=== PATIENT | female | born 1970 | race Caucasian/White ===

== ENCOUNTER 2017-06-06 12:47 | Emergency (ER) | payer OTHER ==
[~2017-06-06] VITALS: Ht 167.6 cm; Wt 80.7 kg
[~2017-06-06 12:47] MED LIST: ALPR-385 PO; AMLO10TA2 PO; LISI20TA3 PO; NIFE1TAB53 PO; PANT40TA PO; TNR25 PO
[2017-06-06 12:52] VITALS: TEMP 36.4; Ht 167.6 cm; Wt 80.7 kg
[2017-06-06] MEDS ORDERED: SODIUM CHLORIDE 0.9% 500ML 500 ML IV STA (13:40)
[2017-06-06] MEDS ORDERED: ONDANSETRON INJ 2 MG/ML 2 ML VIAL IV PRN (13:45)
--- NOTE | 2017-06-06 13:48 | EMERGENCY ROOM VISIT NOTE ---
History First contact with patient: 13:28 Chief Complaint: VOMITING Stated Complaint: SICK TO STOMACH, CAN'T STOP VOMITING History of Present Illness The patient is a 47 year old female who presents to the Emergency Room with complaints of abdominal pain, nausea and vomiting that returned 2 days ago. The patient was admitted to [facility] in [place] 2 weeks ago for the same complaint. She did feel better prior to discharge. The patient says that she struggles with intermittent nausea, vomiting and abdominal pain. During her hospital stay 2 weeks ago, an endoscopy was performed. A polyp was removed. She was not told of any other abnormalities. Her last bowel movement was this morning and reported normal. Denies any fever or chills. Review of Systems 10 system review performed and negative unless noted in HPI or below Past Medical/Surgical History Medical Problems: (1) Anxiety (2) Hypertension (3) Nausea & vomiting Surgical Problems: (1) H/O section (2) History of appendectomy Family History FH: HTN (hypertension) Social History Smoking Status: Current Every Day Smoker Alcohol Use: none Drug Use: none Marital Status: single Housing Status: lives with family, lives with roommate Occupation Status: disabled Current/Historical Medications Scheduled Alprazolam (Xanax), 1 MG PO BID Atenolol (Tenormin), 25 MG PO DAILY Lisinopril (Prinivil), 20 MG PO DAILY Nifedipine (Nifedipine Er), 1 TAB PO DAILY Pantoprazole Sodium (Protonix), 40 MG PO DAILY Sennosides-Docusate Sodium (Stool Softener), 1 TAB PO DAILY Sucralfate (Carafate), 10 ML PO ACHS Scheduled PRN Oxycodone Ir (Roxicodone Ir), 1-2 TAB PO Q4H PRN for Pain Promethazine Hcl (Phenergan), 25 MG PO Q6H PRN for Nausea Physical Exam Vital Signs Date Time Temp Pulse Resp B/P (MAP) Pulse Ox O2 Delivery O2 Flow Rate FiO2 06/06/17 18:33 73 16 172/116 97 Room Air 06/06/17 17:51 76 14 151/104 97 Room Air 06/06/17 17:04 80 15 182/108 98 Room Air 06/06/17 16:25 70 204/134 06/06/17 16:11 55 20 212/122 06/06/17 16:07 59 06/06/17 16:00 80 207/119 06/06/17 14:45 60 16 215/155 98 Room Air 06/06/17 12:52 36.4 87 20 169/130 98 Room Air Physical Exam GENERAL: 47-year-old female, in mild discomfort,,. SKIN: The skin was without rashes, erythema, edema, or bruising. There is no tenting of the skin. Capillary reflex less than 2 seconds. HEAD: Normocephalic atraumatic. MOUTH: Mucous membranes moist. NECK: No JVD. HEART: Regular rate and rhythm without murmurs gallops or rubs. LUNGS: Clear to auscultation bilaterally without wheezes, rales or rhonchi. No accessory muscle use. ABDOMEN: Positive bowel sounds x 4.Soft, tenderness to palpation in the epigastrium., without organomegaly. No guarding or rebound tenderness. MUSCULOSKELETAL: No muscle atrophy, erythema, or edema noted. Strength 5/5 throughout. NEURO: Patient was alert and oriented to person place and time. Normal sensation to touch. No focal neurological deficits. Medical Decision & Procedures ER Provider Diagnostic Interpretation: CT abdomen and pelvis IMPRESSION: 1. No bowel wall thickening or obstruction. 2. A few colonic diverticula. 3. No hydronephrosis. Electronically signed by: Venkat Ramires M.D. 06/06/2017 6:38 PM Laboratory Results 06/06/17 13:55 Red Blood Count 5.29, Mean Corpuscular Volume 84.7, Mean Corpuscular Hemoglobin 30.6, Mean Corpuscular Hemoglobin Concent 36.2, Mean Platelet Volume 10.8, Neutrophils (%) (Auto) 70.1, Lymphocytes (%) (Auto) 22.9, Monocytes (%) (Auto) 5.8, Eosinophils (%) (Auto) 0.6, Basophils (%) (Auto) 0.4, Neutrophils # (Auto) 8.77, Lymphocytes # (Auto) 2.87, Monocytes # (Auto) 0.73, Eosinophils # (Auto) 0.08, Basophils # (Auto) 0.05 06/06/17 13:55 Test 06/06/17 13:55 06/06/17 15:35 White Blood Count 12.52 K/uL (4.8-10.8) Red Blood Count 5.29 M/uL (4.2-5.4) Hemoglobin 16.2 g/dL (12.0-16.0) Hematocrit 44.8 % (37-47) Mean Corpuscular Volume 84.7 fL (80-100) Mean Corpuscular Hemoglobin 30.6 pg (25-34) Mean Corpuscular Hemoglobin Concent 36.2 g/dl (32-36) Platelet Count 313 K/uL (130-400) Mean Platelet Volume 10.8 fL (7.4-10.4) Neutrophils (%) (Auto) 70.1 % Lymphocytes (%) (Auto) 22.9 % Monocytes (%) (Auto) 5.8 % Eosinophils (%) (Auto) 0.6 % Basophils (%) (Auto) 0.4 % Neutrophils # (Auto) 8.77 K/uL (1.4-6.5) Lymphocytes # (Auto) 2.87 K/uL (1.2-3.4) Monocytes # (Auto) 0.73 K/uL (0.11-0.59) Eosinophils # (Auto) 0.08 K/uL (0-0.5) Basophils # (Auto) 0.05 K/uL (0-0.2) RDW Standard Deviation 42.8 fL (36.4-46.3) RDW Coefficient of Variation 14.0 % (11.5-14.5) Immature Granulocyte % (Auto) 0.2 % Immature Granulocyte # (Auto) 0.02 K/uL (0.00-0.02) Anion Gap 11.0 mmol/L (3-11) Est Creatinine Clear Calc Drug Dose 82.8 ml/min Estimated GFR () 88.3 Estimated GFR (Non- 76.1 BUN/Creatinine Ratio 12.3 (10-20) Calcium Level 9.8 mg/dl (8.5-10.1) Total Bilirubin 1.0 mg/dl (0.2-1) Aspartate Amino Transf (AST/SGOT) 9 U/L (15-37) Alanine Aminotransferase (ALT/SGPT) 24 U/L (12-78) Alkaline Phosphatase 52 U/L (45-117) Total Protein 8.7 gm/dl (6.4-8.2) Albumin 4.4 gm/dl (3.4-5.0) Globulin 4.3 gm/dl (2.5-4.0) Albumin/Globulin Ratio 1.0 (0.9-2) Lipase 113 U/L (73-393) Urine Color ORANGE Urine Appearance CLOUDY (CLEAR) Urine pH 6.0 (4.5-7.5) Urine Specific Elkins 1.027 (1.000-1.030) Urine Protein 2+ (NEG) Urine Glucose (UA) NEG (NEG) Urine Ketones 2+ (NEG) Urine Occult Blood NEG (NEG) Urine Nitrite NEG (NEG) Urine Bilirubin NEG (NEG) Urine Urobilinogen NEG (NEG) Urine Leukocyte Esterase TRACE (NEG) Urine WBC (Auto) 5-10 /hpf (0-5) Urine RBC (Auto) 0-4 /hpf (0-4) Urine Hyaline Casts (Auto) 1-5 /lpf (0-5) Urine Epithelial Cells (Auto) >30 /lpf (0-5) Urine Bacteria (Auto) 1+ (NEG) Urine Renal Epithelial Cells /lpf (0-5) Urine Pathogenic Casts 0-3 GRANULAR CASTS /lpf (0) Urine Mucus PRESENT (NONE PRSENT) Urine Opiates Screen POS (NEG) Urine Methadone, Qualitative NEG (NEG) Urine Barbiturates NEG (NEG) Urine Phencyclidine (PCP) Level NEG (NEG) Ur Amphetamine/Methamphetamine NEG (NEG) MDMA (Ecstasy) Screen NEG (NEG) Urine Benzodiazepines Screen NEG (NEG) Urine Cocaine Metabolite NEG (NEG) Urine Marijuana (THC) POS (NEG) Medications Administered Medications (Trade) Dose Ordered Sig/Maddison Route Start Time Stop Time Status Last Admin Dose Admin Hydromorphone HCl (Dilaudid Inj) 1 mg Q2H PRN IV 06/06/17 13:45 06/20/17 13:44 06/06/17 18:32 1 MG Ondansetron HCl (Zofran Inj) 4 mg Q2H PRN IV 06/06/17 13:45 07/06/17 13:44 06/06/17 14:02 4 MG Sodium Chloride 500 ml @ 999 mls/hr Q31M STAT IV 06/06/17 13:40 06/06/17 14:10 DC 06/06/17 13:40 999 MLS/HR Promethazine HCl (Phenergan Inj) 25 mg NOW STAT IM 06/06/17 15:06 06/06/17 15:08 DC 06/06/17 15:06 25 MG Hydromorphone HCl (Dilaudid Inj) 1 mg ONE ONCE IM 06/06/17 15:15 06/06/17 15:16 DC 06/06/17 15:29 1 MG Hydralazine HCl (HydrALAZINE INJ) 10 mg NOW STAT IV. 06/06/17 16:02 06/06/17 16:03 DC 06/06/17 16:10 10 MG Labetalol HCl (Normodyne IV) 10 mg NOW STAT IV 06/06/17 16:56 06/06/17 16:57 DC 06/06/17 17:06 10 MG ECG Indication: other Rate (beats per minute): 51 Rhythm: sinus bradycardia ED Course Patient was seen and examined Vital signs including blood pressure were reviewed medications list was verified with patient Labs were obtained, and a saline lock was established The patient was treated with Dilaudid and Zofran for her symptoms. She was hydrated with 500 mL saline bolus The patient was reevaluated and still complaining of pain. She was given an additional dose of medications. Her blood pressure was also noted to be significantly elevated. She was given hydralazine 10 mg IV. The patient was again reevaluated. Her blood pressure remained elevated. She was given labetalol 10 mg IV. Imaging was performed and reviewed. The patient was reassessed by myself and my supervising physician. Her blood pressure had improved. We discussed the results of her workup. She voiced understanding. She was comfortable being discharged home. I reviewed discharge instructions the patient. They voiced understanding and had no further questions. Medical Decision DIFFERENTIAL DIAGNOSIS: Gastroenteritis, Hepatitis, cholecystitis, cholangitis, biliary colic, pancreatitis, appendicitis, inguinal hernia, nephrolithiasis, inflammatory bowel disease, mesenteric adenitis, peptic ulcer disease, GERD, gastritis, pancreatitis,, bowel obstruction, splenic infarct, diverticulitis, mesenteric ischemia, metabolic, peritonitis, among others. This patient is a 47-year-old female presents to the emergency department with complaints of abdominal pain, nausea and vomiting. The symptoms are not new. She had an extensive workup 2 weeks ago at [place] including an EGD. On exam, the patient was subjectively tender in the epigastrium. She was noted to be significantly hypertensive.. Her blood pressure was treated with hydralazine and labetalol with improvement. A CAT scan did not show any significant acute abnormalities. I believe she is stable to be discharged home. She is tolerating liquids. She was given a follow-up appointment with her GI doctor on June 11. She was also urged to follow up with her primary care physician within the next 2-3 days for a recheck of her abdomen and also her blood pressure. The patient was also urged to take her blood pressure medications as prescribed. The patient was sent home with a short course of narcotics and antiemetics. I was fairly concerned of narcotic abuse and drug-seeking behavior. This should be noted for future visits. It is also of interest that the patient tested positive for marijuana. She could have hyperemesis secondary to this. She was advised against this in the future. This chart was completed in part utilizing [employer] Speech Voice Recognition software. Attempts were made to minimize the grammatical errors, random word insertions, pronoun errors and incomplete sentences. Any formal questions or concerns about the content, text or information contained within the body of this dictation should be directly addressed to the provider for clarification. Blood Pressure Screening Patient's blood pressure: Elevated blood pressure Blood pressure disposition: Referred to PCP Impression Primary Impression: Vomiting Departure Information Dispostion Home / Self-Care Condition GOOD Prescriptions Promethazine Hcl (Phenergan) 25 Mg Tab 25 MG PO Q6H Y for Nausea, #20 TAB Prov: Marion Lay PA-C 06/06/17 Oxycodone Ir (Roxicodone Ir) 5 Mg Tab 1-2 TAB PO Q4H Y for Pain, #9 TAB For Initial Treatment Prov: Marion Lay PA-C 06/06/17 Referrals No Doctor, Assigned (PCP) Mir Marroquin M.D. Patient Instructions My [facility] Additional Instructions You were evaluated in the emergency department for abdominal pain and vomiting. A CAT scan did not show any significant abnormalities. Your blood pressure was significantly elevated. Please continue blood pressure medication as prescribed. Do not miss a dose. Please follow-up with your primary care physician within the next 24-48 hours for a recheck. Please follow-up with your GI doctor as scheduled on June 11 at 1 PM. Return to the emergency department if you have any of the following symptoms: -Fever of 103F or greater -Persistent vomiting - Persistent diarrhea -Lethargy -Chest pain -Shortness of breath -Worsening pain
[2017-06-06] MEDS ORDERED: SENNTAB23 PO (13:49)
[2017-06-06] MEDS ORDERED: CRFL PO (13:49)
[2017-06-06] MEDS ORDERED: ATEN25TA PO (13:49)
[2017-06-06] MEDS: HYDROmorphone INJ 1 MG/ML SYR IV PRN ×2 (14:03→18:32)
[2017-06-06 14:09] LABS: BASO % 0.4 %; BASO ABS # 0.05 K/uL (0-0.2); COMPLETE YES; EOS % 0.6 %; HEMATOCRIT 44.8 % (37-47); IG% 0.2 %; LYMPH % 22.9 %; LYMPH ABS # 2.87 K/uL (1.2-3.4); MEAN CELL VOLUME 84.7 fL (80-100); MEAN CORPUSCULAR HEMOGLOBIN 30.6 pg (25-34); MEAN CORPUSCULAR HGB CONC 36.2 g/dl (32-36); MEAN PLATELET VOLUME 10.8 fL (7.4-10.4); MONO % 5.8 %; NEUT % 70.1 %; PLATELET COUNT 313 K/uL (130-400); RED BLOOD COUNT 5.29 M/uL (4.2-5.4); WHITE BLOOD COUNT 12.52 K/uL (4.8-10.8)
[2017-06-06 14:29] LABS: BUN/CREATININE RATIO 12.3 (10-20); CALCIUM 9.8 mg/dl (8.5-10.1); CREATININE 0.9 mg/dl (0.60-1.20); POTASSIUM 3.4 mmol/L (3.5-5.1)
[2017-06-06] MEDS ORDERED: PROMETHAZINE HCL INJ 25 MG/ML 1 ML VIAL IM STA (15:06)
[2017-06-06] MEDS ORDERED: HYDROmorphone INJ 1 MG/ML SYR IM ONE (15:15)
[2017-06-06] MEDS ORDERED: OPTIRAY 320 IV PRN (15:30)
[2017-06-06] MEDS ORDERED: HydrALAZINE HCL 20 MG/ML VIAL IM STA (15:47)
[2017-06-06 16:01] LABS: URINE APPEARANCE CLOUDY (CLEAR); URINE COLOR ORANGE; URINE EPITHELIAL CELL AUTO >30 /lpf (0-5); URINE NITRITE NEG (NEG); URINE SPECIFIC GRAVITY 1.027 (1.000-1.030); UROBILINOGEN NEG (NEG)
[2017-06-06] MEDS ORDERED: HydrALAZINE HCL 20 MG/ML VIAL IV. STA (16:02)
[2017-06-06 16:11] LABS: MANUAL MICROSCOPIC REQUIRED? NO; REVIEW REQ? YES
[2017-06-06 16:12] LABS: BENZODIAZEPINE, URINE NEG (NEG); COCAINE,URINE NEG (NEG); PHENCYCLIDINE, URINE NEG (NEG)
[2017-06-06 16:14] LABS: URINE BILIRUBIN NEG (NEG)
[2017-06-06] MEDS ORDERED: LABETALOL HCL IV 5 MG/ML 20ML IV STA (16:56)
[2017-06-06 17:04] LABS: URINE PATH CASTS 0-3 GRANULAR CASTS /lpf (0)
[2017-06-06 17:05] LABS: URINE MUCUS PRESENT (NONE PRSENT)
--- NOTE | 2017-06-06 18:39 | DIAGNOSTIC IMAGING REPORT ---
ABDOMEN AND PELVIS CT WITH IV AND ORAL CONTRAST CT DOSE: 660.03 mGy.cm HISTORY: vomiting, generalized abdominal pain TECHNIQUE: Multiaxial CT images of the abdomen and pelvis were performed following the use of intravenous and oral contrast. A dose lowering technique was utilized adhering to the principles of ALARA. COMPARISON STUDY: Abdomen and pelvis CT 07/19/2015. FINDINGS: The lung bases are clear. No pneumoperitoneum. No pneumatosis. No fractures within the visualized osseous structures. The liver, spleen, adrenal glands, pancreas, gallbladder, and kidneys are unremarkable. No retroperitoneal lymphadenopathy. The bladder, uterus, bilateral adnexa are unremarkable. No bowel wall thickening or obstruction. Questionable thickening of the sigmoid colon is likely due to underdistention. A few colonic diverticula. The appendix is not identified and likely surgically absent. IMPRESSION: 1. No bowel wall thickening or obstruction. 2. A few colonic diverticula. 3. No hydronephrosis. Electronically signed by: Venkat Ramires M.D. 06/06/2017 6:38 PM Dictated Date/Time: 06/06/2017 6:31 PM
[2017-06-06] MEDS ORDERED: PROM25TA9 PO (18:56)
[2017-06-06] MEDS ORDERED: OXYC1TAB3 PO (18:56)
[2017-06-06] MEDS ORDERED: OXYCODONE IR HOME PACK PO ONE (19:00)
[2017-06-06] MEDS ORDERED: PHENERGAN 25MG HOMEPACK PO ONE (19:00)
--- NOTE | 2017-06-06 19:18 | EMERGENCY ROOM VISIT NOTE ---
ED Visit Note First contact with patient: 13:28 I have personally evaluated this patient examined her and reviewed the pertinent labs and data. I have discussed the case with Marion Lay, the physician assistant attorney general and agree with the plan. Please refer to the PA note. This patient comes in with nausea. Her pressure was elevated however she was unable hold her blood pressure medication down today. As we treated her with IV fluids and antinausea medicine, her pressures are starting to come down . she still is elevated. she was given additional IV labetalol. CAT scan was unremarkable . she is feeling much better . I do not think is likely cardiac. She feels up to go home we will discharge her with antinausea medicine and she can hold her evening medications down. She return if: Not tolerating fluids, worsening symptoms, fever chills, any new problems or concerns.
[2017-06-06 19:31] VITALS: BP 159/107; PULSE 72; O2SAT 98
[2017-06-10 13:46] LABS: COD UR NEGATIVE NG/ML (CUTOFF=50); HYDROCOD UR NEGATIVE NG/ML (CUTOFF=50); HYDROMOR UR 1050 NG/ML (CUTOFF=50); MORPHINE UR NEGATIVE NG/ML (CUTOFF=50); NORHYDROCODONE CONF UR NEGATIVE NG/ML (CUTOFF=50); OXYMORPH UR 1860 NG/ML (CUTOFF=50)
== END 2017-06-06 19:31 | disposition home or self-care (01) ==
LOC: C.EDB 12:48 → C.EDC 19:31
DX: R11.10 Vomiting, unspecified (principal); I10 Essential (primary) hypertension; F41.9 Anxiety disorder, unspecified; F17.200 Nicotine dependence, unspecified, uncomplicated; Z79.899 Other long term (current) drug therapy; Z82.49 Family history of ischemic heart disease and other diseases of the circulatory system

== ENCOUNTER 2017-09-09 13:56 | Emergency (ER) | payer OTHER ==
[~2017-09-09] VITALS: Ht 170.2 cm; Wt 86.7 kg
[~2017-09-09 13:56] MED LIST changes: -AMLO10TA2 PO; +ATEN25TA PO; +CRFL PO; -LISI20TA3 PO; -NIFE1TAB53 PO; +OXYC1TAB3 PO; -PANT40TA PO; +PROM25TA9 PO; +SENNTAB23 PO; -TNR25 PO
[2017-09-09 14:25] VITALS: TEMP 36.5; Ht 170.2 cm; Wt 86.7 kg
[2017-09-09] MEDS ORDERED: ACETAMINOPHEN IV 100 ML IV STA (15:04)
[2017-09-09] MEDS ORDERED: PROCHLORPERAZINE 5 MG/ML 2 ML VIAL IV STA (15:04)
[2017-09-09] MEDS ORDERED: DiphenhydrAMINE HCL 50 MG/ML VIAL IV STA (15:04)
[2017-09-09] MEDS ORDERED: SODIUM CHLORIDE 0.9% 1000ML 1,000 ML IV STA ×2 (15:04→17:46)
--- NOTE | 2017-09-09 15:10 | EMERGENCY ROOM VISIT NOTE ---
History Report prepared by Bharat: Charlie Dsouza Under the Supervision of: Dr. Deepali Nuñez D.O. First contact with patient: 14:53 Chief Complaint: HEADACHE Stated Complaint: MIGRAINE,HEADACHE,TOOTH ACHE History of Present Illness The patient is a 47 year old female who presents to the Emergency Room with complaints of a persistent headache for the past week in the [place] region. The patient additionally states that she has a toothache for the past 3 days. She states that she has had dental pain for a while, and she has been getting them extracted recently. She additionally notes that she has a history of migraines , and she states that she gets 2 migraines per month, and they usually only last 1-2 days, and it has never lasted this long. She states that she is currently sensitive to light and noise which makes the headache worse, and she has had the chills and has been vomiting today. She denies any cough, congestion , and rash. The patient notes that she has been having difficulty urinating, and she has never had anything like this before. She reports that she is currently dizzy, light headed, and she has some tingling in her legs. The patient states that she has seen a neurologist before for her migraines, and she usually takes Neurontin and ibuprofen for her migraines, and she states that there are no triggers for the migraines. She additionally states that she has taken Zofran and Phenergan for her vomiting. She denies any history of diabetes, She smokes, though she has not smoked for the past couple of days. Source of History: patient Onset: a week ago Position: head Quality: other (migraine) Timing: other (persistent) Modifying Factors (Worsening): other (light and noise) Associated Symptoms: + chills, + vomiting Note: Associated symptoms: light headed and dizziness Review of Systems See HPI for pertinent positives & negatives. A total of 10 systems reviewed and were otherwise negative. Past Medical & Surgical Medical Problems: (1) Anxiety (2) Hypertension (3) Nausea & vomiting Surgical Problems: (1) H/O section (2) History of appendectomy Family History FH: HTN (hypertension) Social History Smoking Status: Current Every Day Smoker Alcohol Use: none Drug Use: none Marital Status: single Housing Status: lives with family, lives with roommate Occupation Status: disabled Current/Historical Medications Scheduled Atenolol (Tenormin), 25 MG PO DAILY Clindamycin Hcl (Cleocin), 300 MG PO TID Lisinopril (Prinivil), 20 MG PO DAILY Nifedipine (Nifedipine Er), 30 MG PO DAILY Pantoprazole Sodium (Protonix), 40 MG PO DAILY Sucralfate (Carafate), 10 ML PO ACHS Scheduled PRN Ibuprofen (Motrin), 800 MG PO Q8H PRN for Pain Promethazine Hcl (Phenergan), 25 MG PO Q6H PRN for Nausea Allergies Coded Allergies: Codeine (Verified Allergy, Unknown, GI SYMPTOMS, 04/15/16) Tramadol (Verified Allergy, Unknown, GI SYMPTOMS, 04/15/16) Morphine (Verified Adverse Reaction, Unknown, N/V, 04/15/16) Physical Exam Vital Signs Date Time Temp Pulse Resp B/P (MAP) Pulse Ox O2 Delivery O2 Flow Rate FiO2 09/09/17 19:38 82 19 164/104 98 09/09/17 17:32 56 18 173/115 95 Room Air 09/09/17 15:30 55 18 150/110 96 Room Air 09/09/17 14:25 36.5 60 20 162/113 97 Room Air Physical Exam GENERAL: alert, well appearing, well nourished, mild to moderate distress, non- toxic EYE EXAM: normal conjunctiva, PERRL and EOM's grossly intact OROPHARYNX: Extensive dental caries. Multiple prior extractions. Other dental plates and hardware noted. No obvious drainage or foul odor. No area of fluctuance. No facial edema. No exudate, no erythema, lips, buccal mucosa, and tongue normal and mucous membranes are moist NECK: supple, no nuchal rigidity, no adenopathy, non-tender LUNGS: Clear to auscultation. Normal chest wall mechanics HEART: no murmurs, S1 normal and S2 normal ABDOMEN: abdomen soft, non-tender, normo-active bowel sounds, no masses, no rebound or guarding. BACK: Back is symmetrical on inspection and there is no deformity, no midline tenderness, no CVA tenderness. SKIN: no rashes and no bruising UPPER EXTREMITIES: upper extremities are grossly normal. LOWER EXTREMITIES: No pitting edema. NEURO EXAM: Normal sensorium, cranial nerves II-XII grossly intact, normal speech, no gross weakness of arms, no gross weakness of legs. Medical Decision & Procedures ER Provider Diagnostic Interpretation: Radiology results have been interpreted by the radiologist and reviewed by me. HEAD CT NONCONTRAST CT DOSE: 828.82 mGy.cm HISTORY: atypical headache TECHNIQUE: Multiaxial CT images of the head were performed without the use of intravenous contrast. Automated exposure control was utilized for this study. A dose lowering technique was utilized adhering to the principles of ALARA. Comparison: None. Findings: The mastoid air cells are clear. Small retention cysts within the right maxillary sinus. The calvarium and skull base are intact. The ventricles and sulci are within normal limits. There is no mass, hematoma, midline shift, or acute infarct. Impression: No acute intracranial abnormality. Electronically signed by: Venkat Ramires M.D. 09/09/2017 5:18 PM Dictated Date/Time: 09/09/2017 5:[address] DOSE: HISTORY: r/o abscess/osteo TECHNIQUE: Multiaxial CT images of the maxillofacial region were performed and reformatted in the coronal plane following the use of intravenous contrast. A dose lowering technique was utilized adhering to the principles of ALARA. COMPARISON: None. FINDINGS: There is erosion of the right maxillary alveolar plate resulting in and 8 x 5 mm defect within the bone at the floor the right maxillary sinus with communication of the right axillary sinus. This may account for the soft tissue gas within the right side of the face. Small periapical lucencies within the right anterior maxillary teeth which demonstrate focal cortical breakthrough at the buccal surface. Punctate focus of gas adjacent to this location. No loculated fluid collections identified to suggest an abscess. There is mild subcutaneous fat stranding within the right maxillary region. Mild mucosal thickening within the floor the right maxillary sinus. The orbits and visualized brain parenchyma are within normal limits. Of note, there is no contrast within the mid face at the level of the oropharynx due to CT malfunction. However, contrast is seen within the upper and lower aspects of the face. Retention cyst within the right maxillary sinus. Old, healed nasal bone fractures. IMPRESSION: 1. Erosion of the right maxillary alveolar plate resulting in an 8 x 5 mm defect within the bone at the floor the right maxillary sinus. There is associated soft tissue gas within the right side of the face which is likely due to the communication from the floor the right maxillary sinus. A developing abscess or possibly necrotizing fasciitis could also have a similar appearance in the appropriate clinical setting. However, this is considered less likely. No loculated fluid collections at this time to suggest a definite abscess. 2. Small periapical lucencies within the residual right anterior maxillary teeth with associated cortical breakthrough. 3. Of note, there is no contrast identified within the oropharynx on this study due to the CT malfunction. However, the remaining portions of the face demonstrate enhancement. Electronically signed by: Venkat Ramires M.D. 09/09/2017 5:30 PM Dictated Date/Time: 09/09/2017 5:18 PM Laboratory Results 09/09/17 15:20 Red Blood Count 4.77, Mean Corpuscular Volume 88.7, Mean Corpuscular Hemoglobin 31.0, Mean Corpuscular Hemoglobin Concent 35.0, Mean Platelet Volume 10.3, Neutrophils (%) (Auto) 69.2, Lymphocytes (%) (Auto) 22.8, Monocytes (%) (Auto) 4.3, Eosinophils (%) (Auto) 3.1, Basophils (%) (Auto) 0.4, Neutrophils # (Auto) 7.93, Lymphocytes # (Auto) 2.61, Monocytes # (Auto) 0.49, Eosinophils # (Auto) 0.35, Basophils # (Auto) 0.05 09/09/17 15:20 Test 09/09/17 15:20 09/09/17 15:27 09/09/17 15:47 White Blood Count 11.45 K/uL (4.8-10.8) Red Blood Count 4.77 M/uL (4.2-5.4) Hemoglobin 14.8 g/dL (12.0-16.0) Hematocrit 42.3 % (37-47) Mean Corpuscular Volume 88.7 fL (80-100) Mean Corpuscular Hemoglobin 31.0 pg (25-34) Mean Corpuscular Hemoglobin Concent 35.0 g/dl (32-36) Platelet Count 243 K/uL (130-400) Mean Platelet Volume 10.3 fL (7.4-10.4) Neutrophils (%) (Auto) 69.2 % Lymphocytes (%) (Auto) 22.8 % Monocytes (%) (Auto) 4.3 % Eosinophils (%) (Auto) 3.1 % Basophils (%) (Auto) 0.4 % Neutrophils # (Auto) 7.93 K/uL (1.4-6.5) Lymphocytes # (Auto) 2.61 K/uL (1.2-3.4) Monocytes # (Auto) 0.49 K/uL (0.11-0.59) Eosinophils # (Auto) 0.35 K/uL (0-0.5) Basophils # (Auto) 0.05 K/uL (0-0.2) RDW Standard Deviation 46.8 fL (36.4-46.3) RDW Coefficient of Variation 14.4 % (11.5-14.5) Immature Granulocyte % (Auto) 0.2 % Immature Granulocyte # (Auto) 0.02 K/uL (0.00-0.02) Anion Gap 9.0 mmol/L (3-11) Est Creatinine Clear Calc Drug Dose 107.8 ml/min Estimated GFR () 113.7 Estimated GFR (Non- 98.1 BUN/Creatinine Ratio 15.5 (10-20) Calcium Level 9.5 mg/dl (8.5-10.1) Total Bilirubin 0.6 mg/dl (0.2-1) Aspartate Amino Transf (AST/SGOT) 16 U/L (15-37) Alanine Aminotransferase (ALT/SGPT) 30 U/L (12-78) Alkaline Phosphatase 48 U/L (45-117) Total Protein 7.9 gm/dl (6.4-8.2) Albumin 4.1 gm/dl (3.4-5.0) Globulin 3.8 gm/dl (2.5-4.0) Albumin/Globulin Ratio 1.1 (0.9-2) Bedside Lactic Acid Venous 0.75 mmol/L (0.90-1.70) Urine Color YELLOW Urine Appearance CLEAR (CLEAR) Urine pH 6.5 (4.5-7.5) Urine Specific [place] 1.014 (1.000-1.030) Urine Protein NEG (NEG) Urine Glucose (UA) NEG (NEG) Urine Ketones NEG (NEG) Urine Occult Blood NEG (NEG) Urine Nitrite NEG (NEG) Urine Bilirubin NEG (NEG) Urine Urobilinogen NEG (NEG) Urine Leukocyte Esterase SMALL (NEG) Urine WBC (Auto) 10-30 /hpf (0-5) Urine RBC (Auto) 5-10 /hpf (0-4) Urine Hyaline Casts (Auto) 1-5 /lpf (0-5) Urine Epithelial Cells (Auto) >30 /lpf (0-5) Urine Bacteria (Auto) NEG (NEG) Urine Renal Epithelial Cells 0-5 /lpf (0-5) Date/Time Source Procedure Growth Status 09/09/17 15:47 Urine , Clean Catch Urine Culture - Final Lactobacillus Species Complete Laboratory results per my review. Medications Administered Medications (Trade) Dose Ordered Sig/Maddison Route Start Time Stop Time Status Last Admin Dose Admin Sodium Chloride 1,000 ml @ 999 mls/hr Q1H1M STAT IV 09/09/17 15:04 09/09/17 16:04 DC 09/09/17 15:24 999 MLS/HR Prochlorperazine Edisylate (Compazine Inj) 10 mg NOW STAT IV 09/09/17 15:04 09/09/17 15:09 DC 09/09/17 15:24 10 MG Diphenhydramine HCl (Benadryl Inj) 25 mg NOW STAT IV 09/09/17 15:04 09/09/17 15:09 DC 09/09/17 15:24 25 MG Acetaminophen 100 ml @ 400 mls/hr NOW STAT IV 09/09/17 15:04 09/09/17 15:18 DC 09/09/17 15:24 400 MLS/HR Clindamycin Phosphate 600 mg/ Dextrose 54 ml @ 100 mls/hr NOW STAT IV 09/09/17 17:46 09/09/17 18:18 DC 09/09/17 17:46 100 MLS/HR Sodium Chloride 1,000 ml @ 999 mls/hr Q1H1M STAT IV 09/09/17 17:46 09/09/17 18:46 DC 09/09/17 18:23 999 MLS/HR Ketorolac Tromethamine (Toradol Inj) 30 mg NOW STAT IV 09/09/17 17:46 09/09/17 17:48 DC 09/09/17 18:18 30 MG Dexamethasone Sodium Phosphate (Decadron Inj) 10 mg NOW STAT IV 09/09/17 17:46 09/09/17 17:48 DC 09/09/17 18:18 10 MG Ondansetron HCl (Zofran Inj) 4 mg STK-MED ONCE .ROUTE 09/09/17 18:28 09/09/17 18:29 DC 09/09/17 18:28 4 MG Oxycodone/ Acetaminophen (Percocet 5-325mg Tab) 1 tab NOW ONCE PO 09/09/17 19:30 09/09/17 19:31 DC 09/09/17 19:31 1 TAB Oxycodone/ Acetaminophen (Percocet 5/ 325MG Home Pack) 1 homepack UD ONCE PO 09/09/17 19:30 09/09/17 19:31 DC 09/09/17 19:31 1 HOMEPACK ED Course 1453: The patient was evaluated in room B5. A complete history and physical exam was performed. 1504: Acetaminophen 100ml @ 400mls/hr IV, Benadryl 25mg IV, Compazine 10mg IV, Sodium Chloride 1000 ml @ 999 mls/hr IV 1741: I discussed the patient's case with Dr. Ike Ellison, and he states that it is less likely acute infectious etiology. He thinks that it is most likely chronic due to prior dental procedures and extractions. 1746: Decadron 10mg IV, Toradol 30mg IV, Sodium Chloride 1000 ml @ 999 mls/hr IV , Clindamycin Phosphate 600mg/Dextrose 54ml @ 100mls/hr 1805: I reevaluated the patient, and she was still in pain. I discussed the results and offered admission, though she would like to go home. 1828: Zofran 4mg IV 1913: Upon reevaluation, the patient is still having some pain, but she will get something to go home with. I discussed the findings and the treatment plan with the patient. She verbalizes agreement and understanding. She was discharged home. 1930: Oxycodone/Acetaminophen 1 Homepack PO, Oxycodone/ Acetaminophen 1 Tab PO Medical Decision Differential diagnosis: Etiologies such as migraine headache, meningitis, sinusitis, CO exposure, ICH, SAH, infection, tumor, headache, sinus thrombosis, arterial dissection, dental caries, dental abscess, osteomyelitis, Skyler's angina, as well as others were entertained. Pt well appearing here and dealing with dental pain for a long time. Recently pain worse and usual migraine this week lasting longer than usual. No fevers here, VS stable, labs reassuring, cultures sent as a precaution. Pt given IV clinda and meds for pain. Discussed observation given complaints of worsening pain and poor dentition. No evidence of acute abscess or osteo. Given hx of dental problems, no obvious swelling/drainage/fluctuance on exam, after additional discussion with radiology I feel abnormalities on CT are likely chronic. Discussed with pt keeping appt with her dentist, dominique to watch/return, she verbalized understanding. I do not suspect additional pathology from the patients headache/migraine. No evidence of intracranial abscess. Doubt cva, SAH, dissection, CVS thrombus, meningitis/encephalitis. [place] Drug Monitoring Program Search Results: patient reviewed within database Drug Monitoring Findings: She had 5 oxycodone filled on 08/29/17 Medication Reconcilliation Current Medication List: was personally reviewed by me Blood Pressure Screening Patient's blood pressure: Elevated blood pressure Blood pressure disposition: Elevated BP felt to be situational Consults Time Called: 1738 Consulting Physician: Dr. Ramires - Radiology Returned Call: [phone] I discussed the patient's case with Dr. Ike Ellison, and he states that it is less likely acute infectious etiology. He thinks that it is most likely chronic due to prior dental procedures and extractions. Impression Primary Impression: Headache Additional Impression: Pain, dental Scribe Attestation The scribe's documentation has been prepared under my direction and personally reviewed by me in its entirety. I confirm that the note above accurately reflects all work, treatment, procedures, and medical decision making performed by me. Departure Information Dispostion Home / Self-Care Prescriptions Clindamycin Hcl (CLEOCIN) 150 Mg Cap 300 MG PO TID for 7 Days, #42 CAP Prov: Deepali Nuñez, DO 09/09/17 Referrals No Doctor, Assigned (PCP) Forms HOME CARE DOCUMENTATION FORM, IMPORTANT VISIT INFORMATION Patient Instructions Decay Tooth, ED Headache Migraine, My [facility] Additional Instructions Please take the antibiotics as prescribed. These consider using probiotics while you're taking antibiotics. Please drink plenty of water. You may eat as tolerated. Please keep the appointment with her dentist as scheduled. Please consider quitting smoking. Please revisit your neurologist regarding your chronic intermittent migraines to discuss with them treatment options. If you have any worsening pain, develop drainage or discharge from an area in your mouth, develop fevers, worsening facial swelling, swelling of the neck or chin area, develop a stiff neck or have difficulty turning your neck, have difficulty opening her mouth or increased pain with swallowing, develop difficulty breathing, or you've any other new concerns, please return to the emergency room. Problem Qualifiers Primary Impression: Headache Headache type: unspecified Headache chronicity pattern: chronic headache Intractability: not intractable Qualified Codes: R51 - Headache
[2017-09-09] MEDS ORDERED: IBUP-1428 PO (15:21)
[2017-09-09] MEDS ORDERED: PROM25TA9 PO (15:21)
[2017-09-09] MEDS ORDERED: OPTIRAY 320 IV PRN (15:30)
[2017-09-09 15:33] LABS: BASO % 0.4 %; BASO ABS # 0.05 K/uL (0-0.2); EOS % 3.1 %; EOS ABS # 0.35 K/uL (0-0.5); HEMATOCRIT 42.3 % (37-47); HEMOGLOBIN 14.8 g/dL (12.0-16.0); IG# 0.02 K/uL (0.00-0.02); LYMPH % 22.8 %; LYMPH ABS # 2.61 K/uL (1.2-3.4); MEAN CELL VOLUME 88.7 fL (80-100); MEAN PLATELET VOLUME 10.3 fL (7.4-10.4); MONO % 4.3 %; MONO ABS # 0.49 K/uL (0.11-0.59); NEUT % 69.2 %; NEUT ABS # 7.93 K/uL (1.4-6.5); PLATELET COUNT 243 K/uL (130-400); RED CELL DISTRIBUTION WIDTH CV 14.4 % (11.5-14.5); RED CELL DISTRIBUTION WIDTH SD 46.8 fL (36.4-46.3); WHITE BLOOD COUNT 11.45 K/uL (4.8-10.8)
[2017-09-09 15:48] LABS: ALBUMIN 4.1 gm/dl (3.4-5.0); CALCIUM 9.5 mg/dl (8.5-10.1); CREATININE 0.73 mg/dl (0.60-1.20); POTASSIUM 3.9 mmol/L (3.5-5.1)
[2017-09-09 15:50] LABS: TOTAL PROTEIN 7.9 gm/dl (6.4-8.2)
--- NOTE | 2017-09-09 17:19 | DIAGNOSTIC IMAGING REPORT ---
HEAD CT NONCONTRAST CT DOSE: 828.82 mGy.cm HISTORY: atypical headache TECHNIQUE: Multiaxial CT images of the head were performed without the use of intravenous contrast. Automated exposure control was utilized for this study. A dose lowering technique was utilized adhering to the principles of ALARA. Comparison: None. Findings: The mastoid air cells are clear. Small retention cysts within the right maxillary sinus. The calvarium and skull base are intact. The ventricles and sulci are within normal limits. There is no mass, hematoma, midline shift, or acute infarct. Impression: No acute intracranial abnormality. Electronically signed by: Venkat Ramires M.D. 09/09/2017 5:18 PM Dictated Date/Time: 09/09/2017 5:15 PM
--- NOTE | 2017-09-09 17:31 | DIAGNOSTIC IMAGING REPORT ---
MAXILLOFACIAL CT CT DOSE: HISTORY: r/o abscess/osteo TECHNIQUE: Multiaxial CT images of the maxillofacial region were performed and reformatted in the coronal plane following the use of intravenous contrast. A dose lowering technique was utilized adhering to the principles of ALARA. COMPARISON: None. FINDINGS: There is erosion of the right maxillary alveolar plate resulting in and 8 x 5 mm defect within the bone at the floor the right maxillary sinus with communication of the right axillary sinus. This may account for the soft tissue gas within the right side of the face. Small periapical lucencies within the right anterior maxillary teeth which demonstrate focal cortical breakthrough at the buccal surface. Punctate focus of gas adjacent to this location. No loculated fluid collections identified to suggest an abscess. There is mild subcutaneous fat stranding within the right maxillary region. Mild mucosal thickening within the floor the right maxillary sinus. The orbits and visualized brain parenchyma are within normal limits. Of note, there is no contrast within the mid face at the level of the oropharynx due to CT malfunction. However, contrast is seen within the upper and lower aspects of the face. Retention cyst within the right maxillary sinus. Old, healed nasal bone fractures. IMPRESSION: 1. Erosion of the right maxillary alveolar plate resulting in an 8 x 5 mm defect within the bone at the floor the right maxillary sinus. There is associated soft tissue gas within the right side of the face which is likely due to the communication from the floor the right maxillary sinus. A developing abscess or possibly necrotizing fasciitis could also have a similar appearance in the appropriate clinical setting. However, this is considered less likely. No loculated fluid collections at this time to suggest a definite abscess. 2. Small periapical lucencies within the residual right anterior maxillary teeth with associated cortical breakthrough. 3. Of note, there is no contrast identified within the oropharynx on this study due to the CT malfunction. However, the remaining portions of the face demonstrate enhancement. Electronically signed by: Venkat Ramires M.D. 09/09/2017 5:30 PM Dictated Date/Time: 09/09/2017 5:18 PM
[2017-09-09] MEDS ORDERED: KETOROLAC TROMETHAMINE 30 MG/ML VIAL IV STA (17:46)
[2017-09-09] MEDS ORDERED: CLINDAMYCIN IV 600 MG in DEXTROSE 5% 50ML 50 ML IV STA (17:46)
[2017-09-09] MEDS ORDERED: DEXAMETHASONE SOD INJ 4 MG/ML VIAL IV STA (17:46)
[2017-09-09] MEDS ORDERED: ONDANSETRON INJ 2 MG/ML 2 ML VIAL ONE (18:28)
[2017-09-09] MEDS ORDERED: CLIN150C PO (19:10)
[2017-09-09] MEDS ORDERED: OXYCODONE/ACETAMINOPHEN 5-325 TAB PO ONE (19:30)
[2017-09-09] MEDS ORDERED: PERCOCET HOME PACK PO ONE (19:30)
[2017-09-09 19:38] VITALS: BP 164/104; PULSE 82; O2SAT 98
[2017-09-09] MEDS ORDERED: LISI20TA3 PO (20:18)
[2017-09-09] MEDS ORDERED: PANT40TA PO (20:19)
[2017-09-09] MEDS ORDERED: NIFE1TAB53 PO (22:47)
== END 2017-09-09 19:39 | disposition home or self-care (01) ==
LOC: C.EDB 13:57
DX: R51 Headache (principal); K08.89 Other specified disorders of teeth and supporting structures; F41.9 Anxiety disorder, unspecified; I10 Essential (primary) hypertension; Z82.49 Family history of ischemic heart disease and other diseases of the circulatory system; F17.210 Nicotine dependence, cigarettes, uncomplicated; Z79.899 Other long term (current) drug therapy

== ENCOUNTER 2017-10-28 10:36 | Emergency (ER) | payer OTHER ==
[~2017-10-28] VITALS: Ht 167.6 cm; Wt 82.6 kg
[~2017-10-28 10:36] MED LIST changes: -ALPR-385 PO; +IBUP-1428 PO; +LISI20TA3 PO; +NIFE30TA86 PO; -OXYC1TAB3 PO; +PANT40TA PO; -SENNTAB23 PO
[2017-10-28 10:48] VITALS: TEMP 36.5; Ht 167.6 cm; Wt 82.6 kg
[2017-10-28] MEDS ORDERED: SODIUM CHLORIDE 0.9% 1000ML 1,000 ML IV STA (11:04)
[2017-10-28] MEDS ORDERED: ONDANSETRON INJ 2 MG/ML 2 ML VIAL IV STA (11:04)
[2017-10-28] MEDS ORDERED: MoRPHine SULFATE 4 MG/ML 1 ML CARP\\VIAL IV STA (11:04)
[2017-10-28] MEDS ORDERED: GI COCKTAIL PO STA (11:04)
--- NOTE | 2017-10-28 11:08 | EMERGENCY ROOM VISIT NOTE ---
History Report prepared by Bharat: Jazmyn Galicia Under the Supervision of: Dr. Tray Guaman M.D. 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 She rates her discomfort as a 10/10 in severity and describes the pain as feeling like "cramping" and "achey". Positive headache, nausea, vomiting, hematemesis, decreased urinary output. Negative diarrhea, recent travel, recent sick contacts, recent antibiotic use. The patient states she was recently hospitalized at [place] and was sent home after a 1 day stay about 5 days ago. She believes she had an US done at [place] but has noticed no change in her symptoms since she's been home. The patient still has her gallbladder. She is a current smoker. 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 A total of ten systems were reviewed and were otherwise negative. Past Medical & Surgical Medical Problems: (1) Anxiety (2) Hypertension (3) Nausea & vomiting Surgical Problems: (1) H/O section (2) History of appendectomy Family History FH: HTN (hypertension) Social History Smoking Status: Current Every Day Smoker Alcohol Use: none Drug Use: marijuana Marital Status: single Housing Status: lives with family, lives with roommate Occupation Status: disabled Current/Historical Medications Scheduled Alprazolam (Xanax), 1 MG PO Q6H Atenolol (Tenormin), 25 MG PO DAILY Lisinopril (Prinivil), 20 MG PO DAILY Nifedipine (Nifedipine Er), 30 MG PO DAILY Pantoprazole Sodium (Protonix), 40 MG PO DAILY Promethazine Hcl (Phenergan), 12.5 MG PO Q6H Sucralfate (Carafate), 10 ML PO ACHS Scheduled PRN Ibuprofen (Motrin), 800 MG PO Q8H PRN for Pain Oxycodone/Acetaminophen 5MG/325MG (Percocet 5MG/325MG), 1 TABLET PO Q4H PRN for Pain Promethazine Hcl (Phenergan), 25 MG PO Q6H PRN for Nausea Promethazine Hcl (Phenergan Suppository), 25 MG WY Q6H PRN for Nausea Allergies Coded Allergies: Codeine (Verified Allergy, Unknown, GI SYMPTOMS, 10/28/17) Tramadol (Verified Allergy, Unknown, GI SYMPTOMS, 10/28/17) Morphine (Verified Adverse Reaction, Unknown, N/V, 10/28/17) Physical Exam Vital Signs Date Time Temp Pulse Resp B/P (MAP) Pulse Ox O2 Delivery O2 Flow Rate FiO2 10/28/17 13:06 87 20 100 Room Air 10/28/17 12:36 81 26 99 Room Air 10/28/17 12:31 192/137 10/28/17 12:09 91 10/28/17 12:01 196/131 10/28/17 11:46 82 18 195/131 98 Room Air 10/28/17 10:48 36.5 98 20 193/156 97 Room Air Physical Exam GENERAL: Awake, alert, appears older than stated age, NAD HENT: Normocephalic, atraumatic. Edentulous. EYES: Normal conjunctiva. Sclera non-icteric. NECK: Supple. No nuchal rigidity. FROM. RESPIRATORY: CTAB, no rhonchi, wheezing, crackles CARDIAC: RRR, no MRG ABDOMEN: Soft, mild epigastric and RUQ TTP, nonsurgical abdomen, not peritonitic , BS+ MSK: No chest wall TTP, no CVA TTP, no LE edema NEURO: GCS 15, CN 2-12 intact, moves all 4s on command SKIN: No rash or jaundice noted. Medical Decision & Procedures ER Provider Diagnostic Interpretation: Radiology results as stated below per my review and radiologist interpretation: ABDOMEN 2VIEW W/PA CHEST RTN HISTORY: 47 years-old Female ABDOMINAL PAIN/GI acute generalized abdominal pain with nausea COMPARISON: Chest radiographs 08/28/2014 TECHNIQUE: PA view the chest with erect and supine views of the abdomen FINDINGS: Cardiomediastinal and hilar silhouettes are within normal limits. There is no pneumothorax, pleural effusion, focal airspace consolidation or overt pulmonary edema. The bones of the chest appear grossly intact. No pneumoperitoneum on the upright projection. The bowel gas pattern appears nonobstructive. No urolith or fracture identified. Gentle convex left curvature of the lumbar spine. IMPRESSION: 1. Nonobstructive bowel gas pattern without pneumoperitoneum. 2. No acute process of the chest. The above report was generated using voice recognition software. It may contain grammatical, syntax or spelling errors. Electronically signed by: Steve Ellis M.D. 10/28/2017 11:53 AM Imaging Performed at [facility] on 10/22/2017: CT Abdomen/Pelvis Impression: No definite acute process. Incidental small hiatal hernia as previously. Chronic changes as noted in report. Signed by Dr. Martha White MD Ultrasound Abdomen Limited Impression: Technically limited exam due to patient pain and vomiting. No significant sonographic abnormality on the provided images. No sonographic evidence of cholelithiasis or gallbladder wall thickening. Signed by Dr. Felecia Denis MD Laboratory Results 10/28/17 11:15 Red Blood Count 5.26, Mean Corpuscular Volume 85.7, Mean Corpuscular Hemoglobin 31.0, Mean Corpuscular Hemoglobin Concent 36.1, Mean Platelet Volume 10.7, Neutrophils (%) (Auto) 74.8, Lymphocytes (%) (Auto) 16.6, Monocytes (%) (Auto) 6.6, Eosinophils (%) (Auto) 1.3, Basophils (%) (Auto) 0.4, Neutrophils # (Auto) 9.78, Lymphocytes # (Auto) 2.17, Monocytes # (Auto) 0.86, Eosinophils # (Auto) 0.17, Basophils # (Auto) 0.05 10/28/17 11:15 Test 10/28/17 11:15 10/28/17 13:00 White Blood Count 13.07 K/uL (4.8-10.8) Red Blood Count 5.26 M/uL (4.2-5.4) Hemoglobin 16.3 g/dL (12.0-16.0) Hematocrit 45.1 % (37-47) Mean Corpuscular Volume 85.7 fL (80-100) Mean Corpuscular Hemoglobin 31.0 pg (25-34) Mean Corpuscular Hemoglobin Concent 36.1 g/dl (32-36) Platelet Count 270 K/uL (130-400) Mean Platelet Volume 10.7 fL (7.4-10.4) Neutrophils (%) (Auto) 74.8 % Lymphocytes (%) (Auto) 16.6 % Monocytes (%) (Auto) 6.6 % Eosinophils (%) (Auto) 1.3 % Basophils (%) (Auto) 0.4 % Neutrophils # (Auto) 9.78 K/uL (1.4-6.5) Lymphocytes # (Auto) 2.17 K/uL (1.2-3.4) Monocytes # (Auto) 0.86 K/uL (0.11-0.59) Eosinophils # (Auto) 0.17 K/uL (0-0.5) Basophils # (Auto) 0.05 K/uL (0-0.2) RDW Standard Deviation 45.1 fL (36.4-46.3) RDW Coefficient of Variation 14.5 % (11.5-14.5) Immature Granulocyte % (Auto) 0.3 % Immature Granulocyte # (Auto) 0.04 K/uL (0.00-0.02) Anion Gap 9.0 mmol/L (3-11) Est Creatinine Clear Calc Drug Dose 94.1 ml/min Estimated GFR () 101.8 Estimated GFR (Non- 87.8 BUN/Creatinine Ratio 10.3 (10-20) Calcium Level 9.3 mg/dl (8.5-10.1) Total Bilirubin 0.7 mg/dl (0.2-1) Direct Bilirubin 0.2 mg/dl (0-0.2) Aspartate Amino Transf (AST/SGOT) 17 U/L (15-37) Alanine Aminotransferase (ALT/SGPT) 24 U/L (12-78) Alkaline Phosphatase 44 U/L (45-117) Total Protein 8.1 gm/dl (6.4-8.2) Albumin 4.2 gm/dl (3.4-5.0) Lipase 131 U/L (73-393) Urine Color YELLOW Urine Appearance CLEAR (CLEAR) Urine pH 8.5 (4.5-7.5) Urine Specific [place] 1.013 (1.000-1.030) Urine Protein NEG (NEG) Urine Glucose (UA) NEG (NEG) Urine Ketones NEG (NEG) Urine Occult Blood NEG (NEG) Urine Nitrite NEG (NEG) Urine Bilirubin NEG (NEG) Urine Urobilinogen NEG (NEG) Urine Leukocyte Esterase NEG (NEG) Urine WBC (Auto) 0 /hpf (0-5) Urine RBC (Auto) 0-4 /hpf (0-4) Urine Hyaline Casts (Auto) 0 /lpf (0-5) Urine Epithelial Cells (Auto) 5-10 /lpf (0-5) Urine Bacteria (Auto) NEG (NEG) Urine Test NEG (NEG) Laboratory results reviewed by me Medications Administered Medications (Trade) Dose Ordered Sig/Maddison Route Start Time Stop Time Status Last Admin Dose Admin Sodium Chloride 1,000 ml @ 999 mls/hr Q1H1M STAT IV 10/28/17 11:04 10/28/17 12:04 DC 10/28/17 11:20 999 MLS/HR Ondansetron HCl (Zofran Inj) 4 mg NOW STAT IV 10/28/17 11:04 10/28/17 11:09 DC 10/28/17 11:19 4 MG Morphine Sulfate (MoRPHine SULFATE INJ) 4 mg NOW STAT IV 10/28/17 11:04 10/28/17 11:08 DC 10/28/17 11:19 4 MG Famotidine (Pepcid Tab) 20 mg NOW ONCE PO 10/28/17 11:15 10/28/17 11:16 DC 10/28/17 11:20 20 MG Lidocaine HCl (Viscous Lidocaine 2% Soln) 20 ml STK-MED ONCE .ROUTE 10/28/17 11:13 10/28/17 11:14 DC 10/28/17 11:19 20 ML Al Hydroxide/Mg Hydroxide (Maalox Susp) 30 ml STK-MED ONCE .ROUTE 10/28/17 11:14 10/28/17 11:15 DC 10/28/17 11:19 30 ML Haloperidol Lactate (Haldol Inj) 5 mg NOW STAT IM 10/28/17 11:55 10/28/17 11:56 DC 10/28/17 12:06 5 MG Promethazine HCl (Phenergan Tab) 25 mg NOW ONCE PO 10/28/17 13:45 10/28/17 13:46 DC 10/28/17 14:12 25 MG Famotidine (Pepcid Tab) 20 mg NOW ONCE PO 10/28/17 13:45 10/28/17 13:46 DC 10/28/17 14:12 20 MG ED Course 1059: The patient was evaluated in room C3. A complete history and physical exam was performed. 1220: I reevaluated the patient. She is not feeling much better after an initial dose of medications. 1414: Nursing informed me the patient feels well and is ready to go home. 1430: I reevaluated the patient. She is feeling better and resting comfortably. I discussed her results and discharge instructions and she verbalized complete understanding and agreement. 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 Triage Nursing notes reviewed. The patient's presentation and history were concerning for abdominal pain. Differential diagnosis: Etiologies such as appendicitis, diverticulitis, PUD, biliary pathology, UTI, pancreatitis, obstruction, mesenteric ischemia, aortic pathology, infections, inflammatory bowel disease, renal colic, as well as others were entertained. Prior records were obtained and reviewed. Patient was recently seen and evaluated at [facility]. During this admission and observation she did have a right upper quadrant ultrasound as well as a CT of the abdomen pelvis. Her CT showed a hiatal hernia but no other acute medical or surgical pathology. Patient's right upper quadrant ultrasound was slightly limited due to some motion artifact but showed no evidence of acute cholecystitis. Patient was seen and evaluated the bedside. Patient had been complaining of some epigastric or right upper quadrant discomfort. Patient has had a prior hysterectomy as well as appendectomy. Patient denies any dysuria does not have any lower abdominal pain. Patient did have blood work completed along with IV fluids and symptom control. Patient also did have plain films. Patient's plain films were unremarkable showing only a nonobstructive bowel gas pattern. Patient has had a recent bowel movement. Given the patient's unchanged symptoms in light of her recent imaging with a CT of the abdomen pelvis and right upper quadrant ultrasound without any grossly remarkable lab abnormalities no additional imaging was obtained at this time. Patient did have a mild white blood cell count. Believe this is likely reactive or possibly inflammatory. Patient may have an element of gastritis. Patient does have a smoking history. Patient was counseled on smoking cessation. Patient does not have any elevations in her LFTs. I am not concerned about a biliary obstruction. Patient was given additional medications. Patient was feeling mildly improved and was able to tolerate p.o. medications. Patient was counseled on a bland diet, smoking cessation, avoiding spicy or citrus foods, and considering Pepcid twice daily as well as smaller portions. Patient was deemed suitable for outpatient follow-up and treatment at this time. Patient was given strict follow-up, discharge, and return precautions. All questions were answered. Patient was deemed suitable for outpatient follow-up at this time. Patient agreed with the plan of care and was safely discharged home. Medication Reconcilliation Current Medication List: was personally reviewed by me Blood Pressure Screening Patient's blood pressure: Elevated blood pressure Blood pressure disposition: Referred to PCP Impression Primary Impression: Gastritis Additional Impressions: Abdominal pain Hypokalemia Scribe Attestation The scribe's documentation has been prepared under my direction and personally reviewed by me in its entirety. I confirm that the note above accurately reflects all work, treatment, procedures, and medical decision making performed by me. Departure Information Dispostion Home / Self-Care Prescriptions Promethazine Hcl (PHENERGAN SUPPOSITORY) 25 Mg Supp 25 MG WY Q6H Y for Nausea, #10 SUPP Prov: Tray Guaman M.D. 10/28/17 Promethazine Hcl (PHENERGAN) 12.5 Mg Tab 12.5 MG PO Q6H for Nausea, #12 TAB Prov: Tray Guaman M.D. 10/28/17 Referrals No Doctor, Assigned (PCP) Patient Instructions ED PUD Vs Gastritis, ED Smoking Cessation, Hypokalemia Ne, [facility] Additional Instructions Please return to the emergency department if you have worsening or recurrent symptoms not amenable to at-home treatment. Please call for a follow-up appointment with her primary care physician. Please take your medications as prescribed. If you have other concerns and/or complaints please feel free to also call your primary care physician's office or return the ED for further evaluation, management, and treatment. You were found to have an elevated blood pressure today (>120 sytolic or >90 diastolic). Per medicare guidelines, you need to follow up with this blood pressure screening with your Primary Care Physician (PCP). For a new PCP call [phone]. You received narcotic or benzodiazepene medication while in the emergency room today. This is an addictive medication that may cause drowziness as well as constipation. Do not drive, operate heavy machinery, or drink alcohol under the influence of this medication. You may take 600 mg Ibuprofen every 6 hours as needed for pain with food for no more than 2 consecutive days. You may take tylenol 1000 mg every 6 hours as needed for pain. You may take motrin and tylenol separately or at the same time. Consider a bland diet. Hydrate liberally with clear liquids. Consider smaller meals and portions. Consider avoiding spicy, citrus, chocolate, and peppermint. He should also consider taking a Pepcid 20 mg twice daily. Consider smoking cessation. Take your medications as prescribed. You have been examined and treated today on an emergency basis only. This is not a substitute for, or an effort to provide, complete comprehensive medical care. It is impossible to recognize and treat all injuries or illnesses in a single emergency department visit. It is therefore important that you follow up closely with [facility], your PCP, and/or your specialist(s). Call as soon as possible for an appointment. Thank you for your time and consideration. I look forward to speaking with you again soon. Please don't hesitate to call us if you have any questions. Problem Qualifiers Primary Impression: Gastritis Gastritis type: unspecified gastritis Chronicity: unspecified Gastritis bleeding: presence of bleeding unspecified Qualified Codes: K29.70 - Gastritis, unspecified, without bleeding Additional Impressions: Abdominal pain Abdominal location: epigastric Qualified Codes: R10.13 - Epigastric pain
[2017-10-28] MEDS ORDERED: LIDOCAINE HCL 2% VISC SOLN 20 ML UDC ONE (11:13)
[2017-10-28] MEDS ORDERED: ALUMINUM/MAGNESIUM SUSP 30 ML UDC ONE (11:14)
[2017-10-28] MEDS ORDERED: FAMOTIDINE 20 MG TAB PO ONE ×2 (11:15→13:45)
[2017-10-28 11:31] LABS: BASO % 0.4 %; BASO ABS # 0.05 K/uL (0-0.2); EOS % 1.3 %; EOS ABS # 0.17 K/uL (0-0.5); HEMATOCRIT 45.1 % (37-47); HEMOGLOBIN 16.3 g/dL (12.0-16.0); IG# 0.04 K/uL (0.00-0.02); LYMPH % 16.6 %; LYMPH ABS # 2.17 K/uL (1.2-3.4); MEAN CELL VOLUME 85.7 fL (80-100); MEAN CORPUSCULAR HGB CONC 36.1 g/dl (32-36); MEAN PLATELET VOLUME 10.7 fL (7.4-10.4); MONO % 6.6 %; MONO ABS # 0.86 K/uL (0.11-0.59); NEUT % 74.8 %; NEUT ABS # 9.78 K/uL (1.4-6.5); PLATELET COUNT 270 K/uL (130-400); RED CELL DISTRIBUTION WIDTH CV 14.5 % (11.5-14.5); RED CELL DISTRIBUTION WIDTH SD 45.1 fL (36.4-46.3); WHITE BLOOD COUNT 13.07 K/uL (4.8-10.8)
[2017-10-28 11:49] LABS: ALBUMIN 4.2 gm/dl (3.4-5.0); CALCIUM 9.3 mg/dl (8.5-10.1); CREATININE 0.8 mg/dl (0.60-1.20); POTASSIUM 3.4 mmol/L (3.5-5.1)
[2017-10-28 11:51] LABS: TOTAL PROTEIN 8.1 gm/dl (6.4-8.2)
--- NOTE | 2017-10-28 11:54 | DIAGNOSTIC IMAGING REPORT ---
ABDOMEN 2VIEW W/PA CHEST RTN HISTORY: 47 years-old Female ABDOMINAL PAIN/GI acute generalized abdominal pain with nausea COMPARISON: Chest radiographs 08/28/2014 TECHNIQUE: PA view the chest with erect and supine views of the abdomen FINDINGS: Cardiomediastinal and hilar silhouettes are within normal limits. There is no pneumothorax, pleural effusion, focal airspace consolidation or overt pulmonary edema. The bones of the chest appear grossly intact. No pneumoperitoneum on the upright projection. The bowel gas pattern appears nonobstructive. No urolith or fracture identified. Gentle convex left curvature of the lumbar spine. IMPRESSION: 1. Nonobstructive bowel gas pattern without pneumoperitoneum. 2. No acute process of the chest. The above report was generated using voice recognition software. It may contain grammatical, syntax or spelling errors. Electronically signed by: Steve Ellis M.D. 10/28/2017 11:53 AM Dictated Date/Time: 10/28/2017 11:51 AM
[2017-10-28] MEDS ORDERED: HALOPERIDOL LACTATE 5 MG/ML 1 ML VIAL IM STA (11:55)
[2017-10-28] MEDS ORDERED: OXYC-57 PO (12:11)
[2017-10-28] MEDS ORDERED: ALPR1TAB3 PO (12:11)
[2017-10-28 12:31] VITALS: BP 192/137
[2017-10-28 13:06] VITALS: PULSE 87; O2SAT 100
[2017-10-28] MEDS ORDERED: PROMETHAZINE HCL 25 MG TAB PO ONE (13:45)
[2017-10-28] MEDS ORDERED: PROM25SU28 PR (14:17)
[2017-10-28] MEDS ORDERED: PROM12.529 PO (14:17)
== END 2017-10-28 14:28 | disposition home or self-care (01) ==
LOC: C.EDB 10:37 → C.EDC 14:28
DX: K29.70 Gastritis, unspecified, without bleeding (principal); E87.6 Hypokalemia; I10 Essential (primary) hypertension; R51 Headache; R33.9 Retention of urine, unspecified; F17.200 Nicotine dependence, unspecified, uncomplicated; F12.90 Cannabis use, unspecified, uncomplicated; F41.8 Other specified anxiety disorders; Z98.890 Other specified postprocedural states; Z88.6 Allergy status to analgesic agent

== ENCOUNTER 2019-09-23 13:32 | Observation (INO) ==
--- OUTSIDE RECORDS SUMMARY | 2019-09-23 13:34 | External Medical Summary | Continuity of Care Document ---
:1970 Author Name Shaye Bazan, Provider Address Unavailable Unavailable , Care Team Providers Name Role Phone Warren Lawrence [email or web address] Case DO, Jose ElanaVishal Unavailable [email or web address] Jere LAWRENCE M.D. Unavailable Unavailable Unavailable Unavailable Unavailable Problems Opiate dependence (304.00) (F11.20) Lumbar radiculopathy (724.4) (M54.16) Acute gastritis (535.00) (K29.00) Benign essential hypertension (401.1) (I10) Allergies and Adverse Reactions Codeine Derivatives (Allergy) Morphine Derivatives (Allergy) traMADol HCl TABS (Allergy) Medications Carafate 1 GM/10ML Oral Suspension; TAKE 10 ML Before meals Take 30 minutes prior to meals and at bedtime Quantity: 900 Refills: 0 Lisinopril 20 MG Oral Tablet; Take 1 tablet daily Brant Lawrence Quantity: 30 Refills: 2 amLODIPine Besylate 5 MG Oral Tablet; TAKE 1 TABLET EV PAULY DAY Beni Lawrence Quantity: 30 Refills: 2 Pantoprazole Sodium 40 MG Oral Tablet Delayed Release; TAKE 1 TABLET DAILY. Beni Lawrence Quantity: 30 Refills: 2 Ondansetron HCl - 4 MG Oral Tablet; TAKE 1 TABLET EVERY 8 HOURS NEEDED FOR NAUSEA Quantity: 15 Refills: 0 oxyCODONE-Acetaminophen 5-325 MG Oral Tablet; TAKE 2 TABLET Twice daily PRN Quantity: 60 Refills: 0 ALPRAZolam 1 MG Oral Tablet; Take 1 tablet twice daily Quantity: 60 Refills: 0 Procedures Procedures not documented Immunizations Immunizations not documented Family History Mother Family history of hypertension (V17.49) (Z82.49) Status: Act kusum Family history of diabetes mellitus (V18.0) (Z83.3) Status: Active Father Family history of hypertension (V17.49) (Z82.49) Status: Act kusum Family history of cerebrovascular accident (CVA) (V17.1) (Z8 2.3) Status: Active Grandmother Family history of cerebrovascular accident (CVA) (V17.1) (Z8 2.3) Status: Active half-brother Family history of Anxiety (300.00) (F41.9) Status: Active Family history of depression (V17.0) (Z81.8) Status: Active Grandfather Family history of myocardial infarction (V17.3) (Z82.49) Sta tus: Active natural daughter Family history of Seizure (780.39) (R56.9) Status: Active Social History - Smoking Status Current every day smoker Plan of Treatment Planned Observations Planned Goals not documented Results No Known Results Results not documented Encounters Appointment; Jose Zazueta DO 23-May-2018 10:00 Encounter Diagnosis: Problem not documented
[2019-09-23] MEDS ORDERED: SODIUM CHLORIDE 0.9% 1000ML 1,000 ML IV ONE ×2 (13:38→17:50)
[2019-09-23] MEDS ORDERED: ONDANSETRON INJ 2 MG/ML 2 ML VIAL IV STA (13:40)
[2019-09-23] MEDS ORDERED: HYDROmorphone INJ 1 MG/ML SYRINGE IV STA (13:40)
[2019-09-23] MEDS ORDERED: LORazepam 0.5 MG/1 ML VIAL IV STA (14:12)
[2019-09-23 14:20] LABS: Basophils # (auto) 0.04 K/uL (0-0.2); Basophils % (auto) 0.3 %; Hematocrit (blood only) 50.4 % (37-47); Hemoglobin 17.9 g/dL (12.0-16.0); Immature Granulocytes # (auto) 0.03 K/uL (0.00-0.02); Immature Granulocytes % (auto) 0.2 %; Lymphocytes # (auto) 0.44 K/uL (1.2-3.4); Lymphocytes % (auto) 3.3 %; Mean Corpuscular Hemoglobin 30.1 pg (25-34); Mean Corpuscular Hgb Conc 35.5 g/dL (32-36); Mean Corpuscular Volume 84.7 fL (80-100); Mean Platelet Volume 11.4 fL (7.4-10.4); Monocytes # (auto) 0.76 K/uL (0.11-0.59); Monocytes % (auto) 5.6 %; Neutrophils # (auto) 12.19 K/uL (1.4-6.5); Neutrophils % (auto) 90.6 %; Platelet Count 262 K/uL (130-400); RDW Coefficient of Variation 13.9 % (11.5-14.5); Red Blood Count 5.95 M/uL (4.2-5.4); White Blood Count 13.46 K/uL (4.8-10.8)
[2019-09-23 14:26] LABS: Alanine Aminotransferase 30 U/L (12-78); Albumin Level 4.5 gm/dl (3.4-5.0); Aspartate Aminotransferase 17 U/L (15-37); BUN Creatinine Ratio 7.4 (10-20); Blood Urea Nitrogen 8 mg/dl (7-18); Calcium 9.9 mg/dl (8.5-10.1); Carbon Dioxide 19 mmol/L (21-32); Chloride 95 mmol/L (98-107); Creatinine Clr Calc Pharmacy 65.9 ml/min; Est GFR (African American) 67.5; Est GFR (Non-African American) 58.3; Glucose 222 mg/dl (70-99); Lipase 74 U/L (73-393); Potassium 3.7 mmol/L (3.5-5.1); Sodium 127 mmol/L (136-145)
[2019-09-23 14:31] LABS: Albumin Globulin Ratio 0.9 (0.9-2); Alkaline Phosphatase 71 U/L (45-117); Bilirubin,Total 1.5 mg/dl (0.2-1); Globulin 4.9 gm/dl (2.5-4.0); Pregnancy Test, Serum Negative (Negative); Total Protein 9.4 gm/dl (6.4-8.2); Troponin I < 0.015 ng/ml (0-0.045)
--- NOTE | 2019-09-23 14:32 | CT Scan Report ---
CT head/brain wo con CLINICAL HISTORY: 49 years-old Female with AMS eval for bleed. Acutely altered mental status TECHNIQUE: Multiple axial CT images of the head were obtained without contrast. A dose lowering tech nique was utilized adhering to the principles of ALARA. CT DOSE: 690.05 mGycm COMPARISON: Head CT 09/09/2017. FINDINGS: Mildly motion degraded exam. No acute intracranial hemorrhage, midline shift, intracranial mass, hydr ocephalus, territorial ischemia or abnormal extra-axial collection. The calvarium is intact. The paranasal sinuses, mastoid air cells, and middle ear cavities are clear . IMPRESSION: No acute intracranial abnormality. ACT 112: Negative or not required by law. The above report was generated using voice recognition software. It may contain grammatical, syntax o r spelling errors. Electronically signed by: Steve Ellis M.D. 09/23/2019 2:31 PM
[2019-09-23] MEDS ORDERED: HYDROmorphone INJ 0.5 MG/0.5 ML SYR IV STA (15:11)
--- NOTE | 2019-09-23 15:15 | Electrocardiogram Report ---
Test Reason : Blood Pressure : / mmHG Vent. Rate : 090 BPM Atrial Rate : 100 BPM P-R Int : 148 ms QRS Dur : 090 ms QT Int : 360 ms P-R-T Axes : 074 051 044 degrees QTc Int : 440 ms Sinus rhythm with marked sinus arrhythmia with occasional Premature ventricular complexes Possible Left atrial enlargement Borderline ECG When compared with ECG of 06-JUN-2017 19:02, Premature ventricular complexes are now Present Vent. rate has increased BY 39 BPM T wave amplitude has increased in Anterior leads Confirmed by Chencho Salmeron ([id number]) on 09/23/2019 3:15:18 PM Referred By: Confirmed By:Chencho Salmeron
[2019-09-23] MEDS ORDERED: IOVERSOL 100ml IV PRN (15:16)
--- NOTE | 2019-09-23 15:34 | CT Scan Report ---
CT OF THE ABDOMEN AND PELVIS WITH CONTRAST CLINICAL HISTORY: Crohn's disease. Lower abdominal pain. Evaluate for abscess. COMPARISON STUDY: CT of the abdomen and pelvis May 15, 2018. TECHNIQUE: Following IV administration of 94 mL of Optiray-320, axial images of the abdomen and pelvi s were obtained from the lung bases to the proximal femurs. Images were reviewed in the axial, sagitt al, and coronal planes. IV contrast was administered without complication. Automated exposure contro l was utilized for the study. A dose lowering technique was utilized adhering to the principles of A APOLINAR. CT DOSE: 553.03 mGy.cm FINDINGS: Lung bases are unremarkable. This exam is mildly compromised by motion artifact. No pneumat osis, free air or portal venous gas is present. The liver, spleen, adrenal glands and kidneys are unr emarkable. There is no peripancreatic or pericholecystic infiltration. The appendix is not visualized . There is no right lower quadrant inflammation. No bowel wall thickening is noted. There is submucos al fat deposition within the colon. This is chronic. No perirectal/perianal abscess is identified. No fistulas are identified. Major vasculature is patent. There are no suspicious osseous lesions. No fl uid collection is suggest an abscess is noted within the abdomen or the pelvis. IMPRESSION: 1. No acute process within the abdomen or pelvis. 2. Exam mildly compromised by motion artifact. ACT 112: Negative or not required by law. Electronically signed by: Aleksandar Mcallister M.D. 09/23/2019 3:33 PM
[2019-09-23] MEDS ORDERED: LABETALOL HCL IV 5 MG/ML 20ML IV STA ×6 (15:38→22:02)
[2019-09-23] MEDS ORDERED: PROMETHAZINE 12.5 MG/50.5 ML BAG IV STA (15:46)
[2019-09-23 16:51] LABS: Appearance Urine Clear (Clear); Bacteria Urine Automated Negative (Negative); Bilirubin Urine Negative (Negative); Blood Urine 2+ (Negative); Color Urine Yellow; Epithelial Cell Urine Auto >30 /lpf (0-5); Glucose Urine UA 1+ (Negative); Ketones Urine Negative (Negative); Leukocyte Esterase Urine Negative (Negative); Nitrite Urine Negative (Negative); Specific Gravity Urine 1.032 (1.000-1.030); Urobilinogen Urine Negative (Negative); pH Urine 8.5 (4.5-7.5)
[2019-09-23 16:58] LABS: Protein Urine 4+ (Negative)
[2019-09-23 17:00] LABS: Sulfosalicylic Acid Urine Positive (Negative)
[2019-09-23 17:12] LABS: Amphetamines+Metham, Urine Neg (Neg); Barbiturates, Urine Neg (Neg); Benzodiazepine, Urine Neg (Neg); Cocaine, Urine Neg (Neg); MDMA (Ecstacy), Urine Neg (Neg); Methadone, Urine Neg (Neg); Opiate, Urine Neg (Neg); Phencyclidine, Urine Neg (Neg)
--- NOTE | 2019-09-23 17:40 | Emergency Department Note ---
Entered by Deb Cummings acting as a scribe for Brandt Pitts MD History of Present Illness General Chief complaint: Abdominal Pain Stated complaint: abd pain/ams Time Seen by Provider: 09/23/19 13:38 Source: family and EMS Limitations: altered mental status History of Present Illness Onset (ago): day(s) (last night) Location: abdomen Severity: similar to prior episodes (Crohn's Disease flare) Pain Consistency: + other (episode) Associated symptoms: + denies other symptoms (abnormal bowel movements), + headaches, + nausea/vomiting and + other (elevated blood pressure, delusional); no chest pain and no fever/chills (fever) The patient is a 49 year old female who presents to the Emergency Room with complaints of an episode of abdominal pain starting last night. The patients daughter states that the patient has a history of Crohns Disease. She states that about every 3 months she has a flare. She states that 3 months ago she had an episode and was admitted to [facility] for a week because her blood pressure was 260/183. She states that they told her that she was a walking stroke. She reports that when she has a flare she become delusional. The patients daughter states that she just screams in pain all the time and vomits. She states that today she heard her screaming and when she went to check on her she was trying to put her t-shirt on her legs. She reports that she has been vomiting every 30 minutes. She notes that she has been complaining of a headache as well. The patients daughter denies the patient having abnormal bowel movements, fever, and chest pain. HPI and ROS are limited secondary to altered mental status. Home Medications Home Medications Medication Instructions Recorded Confirmed Type alprazolam 1 mg PO TID PRN 05/15/18 09/23/19 History atenolol 25 mg PO DAILY 05/15/18 09/23/19 History lisinopril 20 mg PO DAILY 05/15/18 09/23/19 History pantoprazole 40 mg PO DAILY 05/15/18 09/23/19 History amlodipine 5 mg PO DAILY 09/23/19 09/23/19 History duloxetine 60 mg PO DAILY 09/23/19 09/23/19 History metoclopramide HCl 10 mg PO ACHS 02/11/20 02/11/20 History ropinirole 0 mg PO UD 09/23/19 09/23/19 History Allergies Allergy/AdvReac Type Severity Reaction Status Date / Time codeine Allergy Unknown GI SYMPTOMS Verified 09/23/19 14:28 tramadol Allergy Unknown GI SYMPTOMS Verified 09/23/19 14:28 morphine AdvReac Unknown N/V Verified 09/23/19 14:28 Past Med/Surg History Medical History Anxiety Gastritis (Acute) Hx of Crohn's disease Hypertension Migraine UTI (urinary tract infection) (Acute) Surgical History History of appendectomy History of delivery History of orthopedic surgery Family History Other Hypertension Social History marital status: Current Living Situation: Family current occupational status: unemployed Feels Safe at Home: Yes Smoking Status: Current some day smoker Review of Systems HPI and ROS are limited secondary to altered mental status. Physical Exam Vital Signs Vital Signs - 24 hr 09/23/19 13:38 09/23/19 13:41 09/23/19 15:04 Temperature 37 C Temperature Source Oral Pulse Rate 90 Pulse Rate [Right Finger] Respiratory Rate 18 Blood Pressure 239/148 H Blood Pressure [Left Arm] 247/154 H Blood Pressure Mean 178 Blood Pressure Mean [Left Arm] 185 Pulse Oximetry 97 97 Oxygen Delivery Method Room Air Sepsis Recent Fever Within 48 Hours No Sepsis New/Unexplained Change in Mental Status No Sepsis Action Taken by Nursing No Action Required 09/23/19 16:12 Temperature Temperature Source Pulse Rate Pulse Rate [Right Finger] 80 Respiratory Rate 24 Blood Pressure Blood Pressure [Left Arm] 210/148 H Blood Pressure Mean Blood Pressure Mean [Left Arm] 168 Pulse Oximetry 92 Oxygen Delivery Method Room Air Sepsis Recent Fever Within 48 Hours Sepsis New/Unexplained Change in Mental Status Sepsis Action Taken by Nursing Limited due to altered mental status. Constitutional: Vital signs reviewed. Eyes: Pupils are equal round reactive to light. Conjunctiva are noninjected. ENT: Pharynx is clear without erythema or exudate. Mucous membranes are moist. Neck supple without meningeal signs. Respiratory: Clear to auscultation bilaterally. Breath sounds are equal bilaterally. Cardiovascular: Regular rate and rhythm. No rubs or gallops. GI: Soft, nondistended. Tender in the right lower quadrant and suprapubic region. No guarding. Bowel sounds are present. Musculoskeletal: No peripheral edema. Integumentary: No cyanosis. Neurological: The patient is awake and alert. Cranial nerves II-XII are intact. Motor is 5 out of 5 all extremities. Sensation is intact to light touch all extremities. No pronator drift. She will only answer yes or no questions. She follows most commands. Psychiatric: Very anxious. Course Course 1332: The patient was evaluated in room C7. A complete history and physical exam was performed. 1412: CT called and informed me that the patient was unable to stay still for the study. We are going to give her some Ativan. 1431: I reevaluated the patient and she is now back from CT. She says her lower abdomen is still bothering her. Nursing staff informed me that she ripped out her IV. I discussed her results her with her and her daughter thus far. 1513: I reevaluated the patient and her pressure is still elevated. She is still having abdominal pain. She is going to CT now for her abdomen. I discussed her results her with her and her daughter thus far. 1543: I reevaluated the patient and she is still severely hypertensive. She vomited again and she is only oriented to person. I discussed her results her with her and her daughter. I informed them of the treatment plan. They verbally agree and understand. 1605: I discussed the patient's case with Dr. Khoury- [facility]. She will evaluate the patient for further management. 1612: I reevaluated the patient and she is still hypertensive. 1658: I reevaluated the patient and her blood pressure is now 200/147. Administered Medications Ioversol (Optiray 320 100ml) 94 ml IV ONCE PRN PRN Reason: Interaction Checking Stop: 09/27/19 15:15 Last Admin: 09/23/19 15:17 Dose: 94 ml Documented by: [id number] Discontinued Medications Hydromorphone HCl (Dilaudid) 1 mg IV NOW STA Stop: 09/23/19 13:41 Last Admin: 09/23/19 13:50 Dose: 1 mg Documented by: [id number] Hydromorphone HCl (Dilaudid) 0.5 mg IV NOW STA Stop: 09/23/19 15:12 Last Admin: 09/23/19 15:44 Dose: 0.5 mg Documented by: [id number] Sodium Chloride (Nss 1000ml) 1,000 mls @ 999 mls/hr IV .Q1H1M ONE Stop: 09/23/19 14:38 Last Infusion: 09/23/19 15:00 Dose: 0 mls/hr Documented by: [id number] Admin: 09/23/19 13:50 Dose: 999 mls/hr Documented by: [id number] Lorazepam (Ativan) 0.5 mg in 1 mls @ 1 mls/min IV NOW STA Stop: 09/23/19 14:13 Last Admin: 09/23/19 14:17 Dose: 1 mls/min Documented by: [id number] Promethazine HCl (Phenergan) 12.5 mg in 50.5 mls @ 202 mls/hr IV NOW STA Stop: 09/23/19 16:00 Last Infusion: 09/23/19 17:00 Dose: 0 mls/hr Documented by: [id number] Admin: 09/23/19 16:00 Dose: 202 mls/hr Documented by: [id number] Labetalol HCl (Normodyne) 10 mg IV NOW STA Stop: 09/23/19 15:39 Last Admin: 09/23/19 16:00 Dose: 10 mg Documented by: [id number] Cosigned by: [id number] Labetalol HCl (Normodyne) 10 mg IV NOW STA Stop: 09/23/19 16:14 Last Admin: 09/23/19 16:27 Dose: 10 mg Documented by: [id number] Cosigned by: [id number] Labetalol HCl (Normodyne) 10 mg IV NOW STA Stop: 09/23/19 17:01 Last Admin: 09/23/19 17:09 Dose: 10 mg Documented by: [id number] Cosigned by: [id number] Ondansetron HCl (Zofran) 4 mg IV NOW STA Stop: 09/23/19 13:41 Last Admin: 09/23/19 13:50 Dose: 4 mg Documented by: [id number] Critical Care Time Critical Care Time: Yes Total Critical Care Time: 40 I have personally spent 40 minutes of critical care time in the direct management of this patient. This includes bedside care, interpretation of diagnostic studies, and testing, discussion with consultants, patient, and family members, and other required patient management activities. This 40 minutes is in excess of all separately billable procedures. Medical Decision Making Differential Diagnosis Differential diagnoses include hypertensive encephalopathy, ICH, Crohn's disease exacerbation, abscess, fistula, illicit drug use. Medical Records Attestation: I reviewed the patient's medical records. I did perform a limited focused review of portions of the patient's old chart on the electronic medical record. The patient was here in 2018 for abdominal pain and vomiting. She had an unremarkable CT and was discharged. Home Medications Current Medication List: was personally reviewed by me Laboratory Data Attestation: I reviewed the patient's lab results. Result diagrams: 09/23/19 14:00 09/23/19 14:00 Lab Results 09/23/19 09/23/19 09/23/19 Range/Units 14:00 14:00 14:00 WBC 13.46 H (4.8-10.8) K/uL RBC 5.95 H (4.2-5.4) M/uL Hgb 17.9 H (12.0-16.0) g/dL Hct 50.4 H (37-47) % MCV 84.7 (80-100) fL MCH 30.1 (25-34) pg MCHC 35.5 (32-36) g/dL RDW Std Deviation 43.0 (36.4-46.3) fL RDW Coeff of Bo 13.9 (11.5-14.5) % Plt Count 262 (130-400) K/uL MPV 11.4 H (7.4-10.4) fL Immature Gran % (Auto) 0.2 % Neut % (Auto) 90.6 % Lymph % (Auto) 3.3 % [place] % (Auto) 5.6 % Eos % (Auto) 0.0 % Baso % (Auto) 0.3 % Immature Gran # (Auto) 0.03 H (0.00-0.02) K/uL Neut # (Auto) 12.19 H (1.4-6.5) K/uL Lymph # (Auto) 0.44 L (1.2-3.4) K/uL [place] # (Auto) 0.76 H (0.11-0.59) K/uL Eos # (Auto) 0.00 (0-0.5) K/uL Baso # (Auto) 0.04 (0-0.2) K/uL Sodium 127 L (136-145) mmol/L Potassium 3.7 (3.5-5.1) mmol/L Chloride 95 L (98-107) mmol/L Carbon Dioxide 19 L (21-32) mmol/L Anion Gap 13.0 H (3-11) BUN 8 (7-18) mg/dl Creatinine 1.11 (0.6-1.2) mg/dl Est Cr Clr Drug Dosing 65.9 ml/min Est GFR ( Amer) 67.5 Est GFR (Non-Af Amer) 58.3 BUN/Creatinine Ratio 7.4 L (10-20) Glucose 222 H (70-99) mg/dl Calcium 9.9 (8.5-10.1) mg/dl Total Bilirubin 1.5 H (0.2-1) mg/dl AST 17 (15-37) U/L ALT 30 (12-78) U/L Alkaline Phosphatase 71 (45-117) U/L Troponin I < 0.015 (0-0.045) ng/ml Total Protein 9.4 H (6.4-8.2) gm/dl Albumin 4.5 (3.4-5.0) gm/dl Globulin 4.9 H (2.5-4.0) gm/dl Albumin/Globulin Ratio 0.9 (0.9-2) Lipase 74 (73-393) U/L HCG, Qual Negative (Negative) Urine Color Urine Appearance (Clear) Urine pH (4.5-7.5) Ur Specific Crosby (1.000-1.030) Urine Protein (Negative) Urine Glucose (UA) (Negative) Urine Ketones (Negative) Urine Blood (Negative) Urine Nitrite (Negative) Urine Bilirubin (Negative) Urine Urobilinogen (Negative) Ur Leukocyte Esterase (Negative) Urine WBC (Auto) (0-5) /hpf Urine RBC (Auto) (0-4) /hpf U Hyaline Cast (Auto) (0-5) /lpf U Epithel Cells (Auto) (0-5) /lpf Urine Bacteria (Auto) (Negative) Ur Renal Epithelial Cell Urine Opiates Screen (Neg) Ur Methadone, Qual (Neg) Urine Barbiturates (Neg) Ur Phencyclidine (PCP) (Neg) U Amphetamin/Meth Scrn (Neg) MDMA (Ecstasy) Screen (Neg) U Benzodiazepines Scrn (Neg) Ur Cocaine Metabolite (Neg) U Marijuana (THC) Screen (Neg) 09/23/19 09/23/19 Range/Units 16:30 16:30 WBC (4.8-10.8) K/uL RBC (4.2-5.4) M/uL Hgb (12.0-16.0) g/dL Hct (37-47) % MCV (80-100) fL MCH (25-34) pg MCHC (32-36) g/dL RDW Std Deviation (36.4-46.3) fL RDW Coeff of Bo (11.5-14.5) % Plt Count (130-400) K/uL MPV (7.4-10.4) fL Immature Gran % (Auto) % Neut % (Auto) % Lymph % (Auto) % [place] % (Auto) % Eos % (Auto) % Baso % (Auto) % Immature Gran # (Auto) (0.00-0.02) K/uL Neut # (Auto) (1.4-6.5) K/uL Lymph # (Auto) (1.2-3.4) K/uL [place] # (Auto) (0.11-0.59) K/uL Eos # (Auto) (0-0.5) K/uL Baso # (Auto) (0-0.2) K/uL Sodium (136-145) mmol/L Potassium (3.5-5.1) mmol/L Chloride (98-107) mmol/L Carbon Dioxide (21-32) mmol/L Anion Gap (3-11) BUN (7-18) mg/dl Creatinine (0.6-1.2) mg/dl Est Cr Clr Drug Dosing ml/min Est GFR ( Amer) Est GFR (Non-Af Amer) BUN/Creatinine Ratio (10-20) Glucose (70-99) mg/dl Calcium (8.5-10.1) mg/dl Total Bilirubin (0.2-1) mg/dl AST (15-37) U/L ALT (12-78) U/L Alkaline Phosphatase (45-117) U/L Troponin I (0-0.045) ng/ml Total Protein (6.4-8.2) gm/dl Albumin (3.4-5.0) gm/dl Globulin (2.5-4.0) gm/dl Albumin/Globulin Ratio (0.9-2) Lipase (73-393) U/L HCG, Qual (Negative) Urine Color Yellow Urine Appearance Clear (Clear) Urine pH 8.5 H (4.5-7.5) Ur Specific Crosby 1.032 H (1.000-1.030) Urine Protein 4+ H (Negative) Urine Glucose (UA) 1+ H (Negative) Urine Ketones Negative (Negative) Urine Blood 2+ H (Negative) Urine Nitrite Negative (Negative) Urine Bilirubin Negative (Negative) Urine Urobilinogen Negative (Negative) Ur Leukocyte Esterase Negative (Negative) Urine WBC (Auto) 5-10 H (0-5) /hpf Urine RBC (Auto) 5-10 H (0-4) /hpf U Hyaline Cast (Auto) 1-5 (0-5) /lpf U Epithel Cells (Auto) >30 H (0-5) /lpf Urine Bacteria (Auto) Negative (Negative) Ur Renal Epithelial Cell Not Reportable Urine Opiates Screen Neg (Neg) Ur Methadone, Qual Neg (Neg) Urine Barbiturates Neg (Neg) Ur Phencyclidine (PCP) Neg (Neg) U Amphetamin/Meth Scrn Neg (Neg) MDMA (Ecstasy) Screen Neg (Neg) U Benzodiazepines Scrn Neg (Neg) Ur Cocaine Metabolite Neg (Neg) U Marijuana (THC) Screen Pos H (Neg) Imaging Data Radiologist's Impression: Radiology results as stated below per my review and the radiologist's interpretation: CT head/brain wo con CLINICAL HISTORY: 49 years-old Female with AMS eval for bleed. Acutely altered mental status TECHNIQUE: Multiple axial CT images of the head were obtained without contrast. A dose lowering technique was utilized adhering to the principles of ALARA. CT DOSE: 690.05 mGycm COMPARISON: Head CT 09/09/2017. FINDINGS: Mildly motion degraded exam. No acute intracranial hemorrhage, midline shift, intracranial mass, hydrocephalus, territorial ischemia or abnormal extra-axial collection. The calvarium is intact. The paranasal sinuses, mastoid air cells, and middle ear cavities are clear. IMPRESSION: No acute intracranial abnormality. ACT 112: Negative or not required by law. The above report was generated using voice recognition software. It may contain grammatical, syntax or spelling errors. Electronically signed by: Steve Ellis M.D. 09/23/2019 2:[address] OF THE ABDOMEN AND PELVIS WITH CONTRAST CLINICAL HISTORY: Crohn's disease. Lower abdominal pain. Evaluate for abscess. COMPARISON STUDY: CT of the abdomen and pelvis May 15, 2018. TECHNIQUE: Following IV administration of 94 mL of Optiray-320, axial images of the abdomen and pelvis were obtained from the lung bases to the proximal femurs. Images were reviewed in the axial, sagittal, and coronal planes. IV contrast was administered without complication. Automated exposure control was utilized for the study. A dose lowering technique was utilized adhering to the principles of ALARA. CT DOSE: 553.03 mGy.cm FINDINGS: Lung bases are unremarkable. This exam is mildly compromised by motion artifact. No pneumatosis, free air or portal venous gas is present. The liver, spleen, adrenal glands and kidneys are unremarkable. There is no peripancreatic or pericholecystic infiltration. The appendix is not visualized. There is no right lower quadrant inflammation. No bowel wall thickening is noted. There is submucosal fat deposition within the colon. This is chronic. No perirectal/perianal abscess is identified. No fistulas are identified. Major vasculature is patent. There are no suspicious osseous lesions. No fluid collection is suggest an abscess is noted within the abdomen or the pelvis. IMPRESSION: 1. No acute process within the abdomen or pelvis. 2. Exam mildly compromised by motion artifact. ACT 112: Negative or not required by law. Electronically signed by: Aleksandar Mcallister M.D. 09/23/2019 3:33 PM ECG Data Attestation: I personally reviewed and interpreted this ECG as follows: Indication: + abdominal pain and + other (hypertension) Rate (beats per minute): 90 Rhythm: + sinus rhythm ECG Intervals/blocks: + Normal QRS ECG ST segments: no ST elevation ECG Findings: + PVCs Blood Pressure Blood Pressure Findings: Elevated blood pressure Blood Pressure Disposition: Referred to patients primary care provider MDM Narrative I did provide prehospital medical command for the patient. I did immediately evaluate the patient on arrival as noted above. I did obtain history from the load dropper, the daughter as well as some limited history from the patient. A second IV access was established. The patient was placed on a continuous manager monitoring. She is severely hypertensive complaining of lower abdominal pain and headache. She is severely hypertensive. I did wish to treat her pain first and see if her blood pressure came down with this. I did treat her with IV Dilaudid and Zofran. I also treated her with normal saline 1 L IV due to the history of vomiting all night. I did order and personally review the patient's 12-lead EKG as described above. She has no evidence of acute ischemia. I did order a urine analysis. I did order and review the patient's blood work as noted in the electronic medical record. Her white blood cell count is elevated. Hemoglobin hematocrit are also elevated. She has hyponatremia with a sodium 127. Glucose is also elevated. I did order a CT of the head, abdomen and pelvis. I did review the images myself as well as the radiology report as described above. On arrival I ordered a stat CT of the head but the patient was unable to lie down or stay still for the CT. She was therefore given Ativan 0.5 mg IV. She did have a CT scan of the head which showed no acute intracranial process. She later had a CT of the abdomen pelvis which showed no acute intra-abdominal process. She did require more pain and nausea medication. She was given Dilaudid and Zofran IV. She still had nausea and vomiting and was given Phene rgan IV. Her blood pressure was still severely elevated and so she was given several boluses of labetalol IV. I did discuss the test results with the patient and her daughter. She calmed down for the most part but still was only oriented to person. She knew she was in the hospital but did not know what city she was in or the year. She will be hospitalized for further care and evaluation. I did discuss the case with Dr. Khoury and the employment case manager. Impression & Plan Hypertensive emergency, Altered mental status, Hyponatremia, Intractable vomiting, Lower abdominal pain, Hyperglycemia Discharge Plan Visit Data Chief Complaint: Abdominal Pain Stated Complaint: abd pain/ams ED Provider: Brandt Pitts Discharge Problem: Hypertensive emergency, Altered mental status, Hyponatremia, Intractable vomiting, Lower abdominal pain, Hyperglycemia Patient Disposition: Being Evaluated by Hospitalist Forms Stand Alone Forms: Call Back Authorization, [facility] Prescriptions Prescriptions: No Action amlodipine 5 mg tablet 5 mg PO DAILY RF: 0 ropinirole 0.25 mg Tablet 0 mg PO UD RF: 0 metoclopramide HCl 10 mg tablet 10 mg PO ACHS RF: 0 duloxetine 60 mg capsule,delayed release(DR/EC) 60 mg PO DAILY RF: 0 alprazolam 1 mg Tablet 1 mg PO TID PRN (Reason: Anxiety) RF: 0 lisinopril 20 mg Tablet 20 mg PO DAILY RF: 0 atenolol 25 mg Tablet 25 mg PO DAILY RF: 0 pantoprazole 40 mg Tablet,Delayed Release (Dr/Ec) 40 mg PO DAILY RF: 0 Referrals Referrals: PCP,NO [Primary Care Provider] - Discharge Problem: Altered mental status Qualifiers: Altered mental status type: unspecified Qualified Code(s): R41.82 - Altered mental status, unspecified Intractable vomiting Qualifiers: Vomiting type: unspecified Nausea presence: unspecified Qualified Code(s): R11.10 - Vomiting, unspecified The scribe's documentation has been prepared under my direction and personally reviewed by me in its entirety. I confirm that the note above accurately reflects all work, treatment, procedures, and medical decision making performed by me.
[2019-09-23] MEDS ORDERED: PHARMACY GLYCEMIC MGMT CONSULT STA (18:14)
[2019-09-23 18:20] LABS: Magnesium 1.8 mg/dl (1.8-2.4); Phosphorus 1.4 mg/dl (2.5-4.9)
[2019-09-23] MEDS ORDERED: POTASSIUM PHOS 3 MMOL/1 ML INFUSION IV STA (18:22)
--- NOTE | 2019-09-23 18:22 | History & Physical Report ---
Date of Service September 23, 2019 Assessment & Plan (1) Hypertensive emergency: Charleen Mathis is a 49 y/o female with past medical hx of Hep C, Nausea/Vomiting, stomach ulcers, HTN, Anxiety, current smoker who presented to [facility] via EMS for AMS and was admitted for HTN Emergency, Hyponatremia, and Intractable Nausea vomiting. - On presentation HTN Emergency with BPs of 210s-240s/150s with suspected end organ damage by way of confusion. - She was treated with Labetalol 10mg IV x 3 rounds with BP still elevated in 200s-210s/140s. By time of transfer to floor further chart review of complicated medical patient showed last dose of Labetalol was approx 3 hours ago. - Attempted to place another round of Labetalol 20mg IV but EMR issue wouldn't process order as software error most likely caused by process of change of room/ED to hospital. As soon as patient reaches floor, I will order this medication so EMR appropriately processes it. I will discuss case with overnight resident as patient could be considered candidate for Labetalol drip as pressure elevation are concerning and her heart rate can support this type of medication for HTN now likely suspect HTN urgency. Otherwise, could plan for continued single doses of Labetalol while watching hemodynamics. - Elevation of BP most likely multifactorial from unable to tolerate PO BP meds with hx of HTN, loss of fluids from vomiting and urinary frequency causing hemodynamic compensation. Thus will continue aggressive fluid resuscitation to help manage BP as well. - Other signs of end organ damage, with Troponin negative for cardiac, no shortness of breath, thought such high level could cause aortic dissection but no chest pain, will consider need for CXR also with vomiting concerning for aspiration but no decrease Pulse ox or oxygen requirement, there is blood in urine and could be end organ renal damage so will monitor urine output, but creatinine normal here. LFTs normal for consideration for Liver damage. Also Head CT was negative to ensure there was no Brain bleed. - Also there is consideration of differential of Glomerulonephritis as blood in urine and hypertensive in the setting of hx of Hep C would predispose the patient to this. Code: Full DVT ppx: SCDs as not comfortable with chemical in setting of BP 210s/140s that could promote a brain bleed FENGI: Full liquids, advance as tolerated, was NPO in ED but would like to further promote fluid replacement, Pepcid 20mg IV BID. Dispo: Admit Full - PCU/tele (2) Altered mental status: Daughter notes confusion as trying to put shirt on as pants which led to daughter calling 911. She is alert and oriented in ED and considered to have resolved AMS/confusion. This could be from HTN emergency end organ damage with multifactorial from dehydration. - With hx of Hep C and no significant past medical records available will get an Ammonia level for diff of Hepatic Encephalopathy. - Will also get am ABG for possible metabolic acidosis as cause. - Head CT was negative - Do not appreciate focal/neuro deficits or signs of CVA. - Will order fall precautions as she is very mobile in bed from being uncomfortable and reported confusion. (3) Hypophosphatemia: A phosphate level was ordered by myself for workup while getting admitted. - This resulted critical with a level of 1.4 - KPhos 30mmol was ordered to be started prior to transfer. - recheck in AM (4) Hyponatremia: Based on hx suspect her to be hypovolemic hyponatremic in setting of fluid loss from vomiting/urinary frequency Also, Her hgb and hct were elevated to support probable hypovolemia, but no signs of any elevated Creat to show GEORGINA from pre-renal losses. Will treat with fluid replacement - Considering further workup with urine electrolytes but no strong indication for now. - Consider if nephro consult could be warranted once further diagnostic workup has resulted for Glomerulonephritis workup. (5) Intractable vomiting: In ED, she received Zofran 4mg IV and Phenergan 12.5mg IV for nausea/vomiting which seemed to help stop her vomiting and as allowing for PO water intake. Suspect this is either from Gastroparesis from undiagnosed DM as home list notes on Reglan which by mechanism helps to promote gastric emptying and also daughter notes this is an acute on chronic episode. Could also be further promoted by HTN emergency. - Also could be a viral gastroenteritis but most likely unlikely based on clinical hx. - Aspiration precautions (6) Hyperglycemia: Noted no hx of DM - She was 222 in ED in setting of no significant food intake over the prior 3-4 days. - Concerned this is picture of HHS, her urine had glucose in it, negative for ketones, but there is protein. Most importantly, there is an Anion Gap of 13. - Ordered a Hgb A1C and Beta hydroxybutyric level. - I was considering placing on Novolog as sugar was only 222, but I appreciated our pharmacy resource for a consult for Charleen as this Anion Gap needs to be closed. In the setting of hypovolemia, I wanted to treat her fluid status first as this could help more urgently than insulin treatment. Also, I appreciated consult as to whether she would benefit from an Insulin drip because of the gap, but her sugars are lower than expected, but doesn't mean they weren't higher for the past several days. - Obviously trend (7) Hepatitis C: Reported hx of Hep C. Unsure of etiology. Her LFTs are normal here and no obvious signs of ascites and patient denies hx of cirrhosis without mention of Liver pathology on CT scan. Can't rule out that chronic liver disease causing LFTs to be WNL. Also note that her limited records in our EMR do a show a prior AST/ALT in 05/2018 of a 2:1 ratio with value 111/44 which would support heavy alcohol intake as a differential, but patient denies this in for social history. Bilirubin which is also elevated at 1.5, which is non-specific as caused by liver pathology but should be considered once more workup is available. - I did order PT/INR for consideration to further evaluate for chronic liver disease. - will get a simple viral hep workup for labs that aren't sent out - Hep C Ab for chronic infection - Hep B surface antigen for active infection; Hep B surface antibody for immunity and if negative recommend Hep B vaccination. (8) Lower abdominal pain: - No etiology seen on CT Abd/Pelvis to explain - Lipase was WNL - Suspect this is either Gastritis based on hx or pain from hypovolemia - Will treat with Pepcid 20mg IV BID - Consider GI cocktail once further able to tolerate PO intake, but pain only intermittent at the moment with lead problems being fluid status, BP management, management of nausea. (9) Gastritis: - Noted as above - May benefit from Carafate QID as stated was on prior - No signs of current GI bleed (10) Anxiety: Noted to be on Alprazolam 1mg PO TID PRN - Concern for Benzo withdrawal in setting of not being able to tolerate PO intake; also Benzos were negative on drug screen. - Received Ativan 0.5mg IV x1 in ED, Will re-order as PRN dose of Ativan 0.5mg IV q4h. (11) Hypertension: Noted as above. (12) History of appendectomy: Considered in differential for history taking for abdominal pain (13) H/O section: Considered in differential for history taking for abdominal pain (14) Current smoker: would benefit from smoking cessation once more comfortable Order Nicotine Patch if requested. (15) Marijuana smoker: Admits to use Differential of cyclic vomiting syndrome from THC use Urine drug screen was otherwise negative History of Present Illness Chief Complaint: Intractable Nausea/Vomiting and AMS Primary Care Provider: NO PCP Charleen Mathis is a 49 y/o female with past medical hx of Hep C, Nausea/Vomiting, stomach ulcers, HTN, Anxiety, current smoker who presented to [facility] via EMS for AMS. Daughter is with patient who assists with history. Charleen notes that she has had intractable N/V for the past 3-4 days with poor PO intake. Daughter notes that this nausea/vomiting is acute on chronic, possibly worse than previous episodes. She takes Zofran at home but this hasn't resolved her symptoms. She denies any bloody emesis. She also has had sharp LLQ abdomi nal pain that has been intermittent. Daughter notes that patient has been unable to find position of comfort and was taking numerous baths over the past 24 hours, perhaps 5 baths overnight. Daughter states patient became confused after getting out of bath tub while getting dressed and was attempting to put her shirt on her legs. This was new for Charleen as daughter notes no prior similar symptoms in the past of confusion. This prompted her daughter to call EMS. Charleen denies any shortness of breath, chest pain, black/bloody stools. She hasn't been able to take her home meds because of vomiting. She does endorse subjective fever and chills. Also she has had carpo and pedal spasms causing pain. Also notes symptoms of polyuria with being 15 times over the course of day and polydipsia. Daughter notes Charleen enjoys drinking sweet tea which she adds sugar too. Denies any previous history of DM. Charleen denies dysuria. She notes she resides in [place] and is here visiting. Daughter s tommy she had stomach bug with nausea and vomiting which has resolved. Charleen denies any diarrhea or change in bowel habits. She states she has tried to stay hydrated over course of illness by drinking Propel bottled water. She states hx of Hep C, denies prior IV drug use or hx of alcohol intake, she does endorse Marjiuana use. There was a questionable report of Crohn's disease but Daughter provides history that this was more of a working diagnosis as she had prior EGD which showed non-bleeding stomach ulcers which she was treated with Prilosec and Carafate. Charleen has never had a colonoscopy or needed to use steroids or follow with a GI doctor. She states she follows with a doctor for her Hep C but cannot provide specialty of physician or name. She notes hx of Appendectomy and C-sect ion, still has her gallbladder. In the ED, she had a Head CT and Abdominal CT which were both unremarkable. She has had HTN Emergency with BPs of 210s-240s/150s with suspected end organ damage by way of confusion. She was treated with Labetalol 10mg IV x 3 rounds with BP still elevated in 200s-210s/140s. She received 1L NSS, for pain she received Dilaudid 1mg IV and another dose of 0.5mg IV, she received Zofran 4mg IV and Phenergan 12.5mg IV for nausea/vomiting, she also received Ativan 0.5mg IV. Lab work was remarkable for WBC leukocytosis of 13.46, elevated Hgb/Hct 13.9/50.4, hyponatremia 127, decreased bicarb of 19, glucose of 222 in setting of poor food intake and a AG of 13. Allergies Allergy/AdvReac Type Severity Reaction Status Date / Time codeine Allergy Unknown GI SYMPTOMS Verified 09/23/19 14:28 tramadol Allergy Unknown GI SYMPTOMS Verified 09/23/19 14:28 morphine AdvReac Unknown N/V Verified 09/23/19 14:28 Home Medications Home Medications Medication Instructions Recorded Confirmed Type alprazolam 1 mg PO TID PRN 05/15/18 09/23/19 History atenolol 25 mg PO DAILY 05/15/18 09/23/19 History lisinopril 20 mg PO DAILY 05/15/18 09/23/19 History pantoprazole 40 mg PO DAILY 05/15/18 09/23/19 History amlodipine 5 mg PO DAILY 09/23/19 09/23/19 History duloxetine 60 mg PO DAILY 09/23/19 09/23/19 History metoclopramide HCl 10 mg PO ACHS 09/23/19 09/23/19 History ropinirole 0 mg PO UD 09/23/19 09/23/19 History Past Med/Surg History Medical History Anxiety Gastritis (Acute) Hx of Crohn's disease Hypertension Migraine UTI (urinary tract infection) (Acute) Surgical History History of appendectomy History of delivery History of orthopedic surgery Family History Other Hypertension Social History Preferred Language: Dutch Communication Ability: Effective 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: No Beliefs That Will Affect Care: None marital status: Current Living Situation: Family Current Living Situation Comment: daughter lives with patient current occupational status: unemployed Other Information That Helps Us Care for You: No Feels Safe at Home: Yes Safety Concerns: Feels Safe At This Time Smoking Status: Heavy tobacco smoker Tobacco Type: cigarettes ; Cigarettes Per Day: 40 ; Do You Dip or Chew Tobacco: No ; Second Hand Exposure: No ; Tobacco Cessation Education Requested by Patient: No Hx Alcohol Use: No Hx Substance Use: Yes substance use type: prescription drug Substance Use Type Other:: aprazolam Last Used Substance: Unknown Review of Systems Review of Systems: All systems reviewed & are unremarkable except as noted in HPI & below Constitutional: as per Subjective / HPI Eyes: no diplopia and no worsening vision Ear, Nose, Mouth, Throat: no nasal congestion and no sore throat Respiratory: no dyspnea and no hemoptysis Cardiovascular: no chest pain and no syncope Gastrointestinal: as per Subjective / HPI Genitourinary: as per Subjective / HPI Neurologic: + confusion; no numbness and no syncope Endocrine: + polydipsia, + polyphagia and + polyuria Physical Exam Physical Exam: Exam as done by Devi Khoury DO: Constitutional: WD/WN, vitals as above + obese and cooperative uncomfortable frequently changing position in bed Eyes: PERRL, conjunctivae normal, anicteric sclerae normal visual eugene by confrontation and + anicteric sclerae ENMT: external ear and nose normal, oropharynx normal Neck: normal visual inspection and trachea midline Respiratory: normal respiratory effort, lungs clear to auscultation Cardiovascular: Rate/Rhythm: regular rate and regular rhythm Gastrointestinal (Abdomen): Inspection/Auscultation: normal bowel sounds Percussion/Palpation: abdomen soft; abdomen nontender, no guarding, abdomen not rigid and no ascites Negative ferreira's Musculoskeletal: Head/Neck/Chest: normocephalic and head atraumatic pedal spasm episode during exam relieved with dorsiflexion Skin: no rashes, warm and dry Neurologic: moves all extremities and awake; no focal motor deficits and not confused Speech / Cognition: normal speech Cranial Nerves: EOM intact bilaterally Psychiatric: A+Ox3, euthymic affect Orientation: alert, oriented x 3 and cooperative Lymphatic: Exam as done by Devi Khoury DO Results & Data Vital Signs (Past 12 Hours) Vital Signs Temp Pulse Pulse Resp BP BP Pulse Ox 09/23/19 17:53 88 24 219/147 H 94 09/23/19 17:16 211/127 H 09/23/19 17:14 204/163 H 09/23/19 16:45 200/147 H 09/23/19 16:30 207/139 H 09/23/19 16:13 94 09/23/19 16:12 80 24 210/148 H 210/148 H 92 09/23/19 15:42 271/160 H 09/23/19 15:04 247/154 H 09/23/19 13:41 37 C 90 18 239/148 H 97 09/23/19 13:38 97 Laboratory Results Laboratory Results - last 24 hr 09/23/19 09/23/19 09/23/19 14:00 14:00 14:00 WBC 13.46 H RBC 5.95 H Hgb 17.9 H Hct 50.4 H MCV 84.7 MCH 30.1 MCHC 35.5 RDW Std Deviation 43.0 RDW Coeff of Bo 13.9 Plt Count 262 MPV 11.4 H Immature Gran % (Auto) 0.2 Neut % (Auto) 90.6 Lymph % (Auto) 3.3 [place] % (Auto) 5.6 Eos % (Auto) 0.0 Baso % (Auto) 0.3 Immature Gran # (Auto) 0.03 H Neut # (Auto) 12.19 H Lymph # (Auto) 0.44 L [place] # (Auto) 0.76 H Eos # (Auto) 0.00 Baso # (Auto) 0.04 Sodium 127 L Potassium 3.7 Chloride 95 L Carbon Dioxide 19 L Anion Gap 13.0 H BUN 8 Creatinine 1.11 Est Cr Clr Drug Dosing 65.9 Est GFR ( Amer) 67.5 Est GFR (Non-Af Amer) 58.3 BUN/Creatinine Ratio 7.4 L Glucose 222 H Estimat Average Glucose Hemoglobin A1c Calcium 9.9 Phosphorus Magnesium Total Bilirubin 1.5 H AST 17 ALT 30 Alkaline Phosphatase 71 Troponin I < 0.015 Total Protein 9.4 H Albumin 4.5 Globulin 4.9 H Albumin/Globulin Ratio 0.9 Lipase 74 Beta-Hydroxybutyric Acd HCG, Qual Negative Urine Color Urine Appearance Urine pH Ur Specific [place] Urine Protein Urine Glucose (UA) Urine Ketones Urine Blood Urine Nitrite Urine Bilirubin Urine Urobilinogen Ur Leukocyte Esterase Urine WBC (Auto) Urine RBC (Auto) U Hyaline Cast (Auto) U Epithel Cells (Auto) Urine Bacteria (Auto) Ur Renal Epithelial Cell Urine Opiates Screen Ur Methadone, Qual Urine Barbiturates Ur Phencyclidine (PCP) U Amphetamin/Meth Scrn MDMA (Ecstasy) Screen U Benzodiazepines Scrn Ur Cocaine Metabolite U Marijuana (THC) Screen U Marijuana THC Carboxy Drug Screen Comment 09/23/19 09/23/19 09/23/19 14:00 14:00 16:30 WBC RBC Hgb Hct MCV MCH MCHC RDW Std Deviation RDW Coeff of Bo Plt Count MPV Immature Gran % (Auto) Neut % (Auto) Lymph % (Auto) [place] % (Auto) Eos % (Auto) Baso % (Auto) Immature Gran # (Auto) Neut # (Auto) Lymph # (Auto) [place] # (Auto) Eos # (Auto) Baso # (Auto) Sodium Potassium Chloride Carbon Dioxide Anion Gap BUN Creatinine Est Cr Clr Drug Dosing Est GFR ( Amer) Est GFR (Non-Af Amer) BUN/Creatinine Ratio Glucose Estimat Average Glucose Pending Hemoglobin A1c Pending Calcium Phosphorus 1.4 L* Magnesium 1.8 Total Bilirubin AST ALT Alkaline Phosphatase Troponin I Total Protein Albumin Globulin Albumin/Globulin Ratio Lipase Beta-Hydroxybutyric Acd Pending HCG, Qual Urine Color Urine Appearance Urine pH Ur Specific [place] Urine Protein Urine Glucose (UA) Urine Ketones Urine Blood Urine Nitrite Urine Bilirubin Urine Urobilinogen Ur Leukocyte Esterase Urine WBC (Auto) Urine RBC (Auto) U Hyaline Cast (Auto) U Epithel Cells (Auto) Urine Bacteria (Auto) Ur Renal Epithelial Cell Urine Opiates Screen Neg Ur Methadone, Qual Neg Urine Barbiturates Neg Ur Phencyclidine (PCP) Neg U Amphetamin/Meth Scrn Neg MDMA (Ecstasy) Screen Neg U Benzodiazepines Scrn Neg Ur Cocaine Metabolite Neg U Marijuana (THC) Screen Pos H U Marijuana THC Carboxy Drug Screen Comment 09/23/19 09/23/19 16:30 16:30 WBC RBC Hgb Hct MCV MCH MCHC RDW Std Deviation RDW Coeff of Bo Plt Count MPV Immature Gran % (Auto) Neut % (Auto) Lymph % (Auto) [place] % (Auto) Eos % (Auto) Baso % (Auto) Immature Gran # (Auto) Neut # (Auto) Lymph # (Auto) [place] # (Auto) Eos # (Auto) Baso # (Auto) Sodium Potassium Chloride Carbon Dioxide Anion Gap BUN Creatinine Est Cr Clr Drug Dosing Est GFR ( Amer) Est GFR (Non-Af Amer) BUN/Creatinine Ratio Glucose Estimat Average Glucose Hemoglobin A1c Calcium Phosphorus Magnesium Total Bilirubin AST ALT Alkaline Phosphatase Troponin I Total Protein Albumin Globulin Albumin/Globulin Ratio Lipase Beta-Hydroxybutyric Acd HCG, Qual Urine Color Yellow Urine Appearance Clear Urine pH 8.5 H Ur Specific [place] 1.032 H Urine Protein 4+ H Urine Glucose (UA) 1+ H Urine Ketones Negative Urine Blood 2+ H Urine Nitrite Negative Urine Bilirubin Negative Urine Urobilinogen Negative Ur Leukocyte Esterase Negative Urine WBC (Auto) 5-10 H Urine RBC (Auto) 5-10 H U Hyaline Cast (Auto) 1-5 U Epithel Cells (Auto) >30 H Urine Bacteria (Auto) Negative Ur Renal Epithelial Cell Not Reportable Urine Opiates Screen Ur Methadone, Qual Urine Barbiturates Ur Phencyclidine (PCP) U Amphetamin/Meth Scrn MDMA (Ecstasy) Screen U Benzodiazepines Scrn Ur Cocaine Metabolite U Marijuana (THC) Screen U Marijuana THC Carboxy Pending Drug Screen Comment Pending Medications Administered Sodium Chloride (Nss 1000ml) 1,000 mls @ 999 mls/hr IV .Q1H1M ONE Stop: 09/23/19 18:50 Last Admin: 09/23/19 17:53 Dose: 999 mls/hr Documented by: [id number] Ioversol (Optiray 320 100ml) 94 ml IV ONCE PRN PRN Reason: Interaction Checking Stop: 09/27/19 15:15 Last Admin: 09/23/19 15:17 Dose: 94 ml Documented by: [id number] Code Status & VTE Plan Code Status Full Code VTE Prophylaxis Plan VTE Prophylaxis will be ordered: Yes Supervising Physician Co-Signing Physician Notes Pt seen and examined by me. Denies chest pain or SOB. Just coming from the restroom after an episode of emesis. States she does not feel well and gets back into bed. Daughter answering most questions as pt says she is too sick to discuss further. Agree with HPI/ROS as noted by resident See above for my exam in PE section Agree with plan as outlined above Possible DKA?? Pt does not carry dx of DM BS elevated to 222 in the setting of no PO intake for days AG noted Holding on insulin drip initially given BS is not markedly elevated Monitor with IVF Repeat PRP in 2 hours HyperNa--corrected Na is 130 Labile BP in the setting of not taking home meds for several days due to n/v PRN meds CT head neg Resident Activity Tracking Resident Involvement: Resident Care Provided Care Provided: Adult Hospital Medicine (1) Altered mental status Altered mental status type: unspecified Qualified Code(s): R41.82 - Altered mental status, unspecified (2) Intractable vomiting Nausea presence: unspecified Vomiting type: unspecified Qualified Code(s): R11.10 - Vomiting, unspecified
[2019-09-23] MEDS ORDERED: POTASSIUM PHOSPHATE 30 MMOL in SODIUM CHLORIDE 0.9% 500 ML IV ONE (18:45)
[2019-09-23] MEDS ORDERED: GLUCOSE 40% GEL 15 GM TUBE PO PRN (19:13)
[2019-09-23] MEDS ORDERED: LORazepam 0.5 MG/1 ML VIAL IV PRN (19:13)
[2019-09-23] MEDS ORDERED: DEXTROSE 50% 50 ML SYRINGE IV PRN (19:13)
[2019-09-23] MEDS ORDERED: GLUCOSE 10 TABS/TUBE PO PRN (19:13)
[2019-09-23] MEDS ORDERED: NITROGLYCERIN SL 0.4 MG/TAB TAB SL PRN (19:13)
[2019-09-23] MEDS ORDERED: CARBOHYDRATES FOR HYPOGLYCEMIA PO PRN (19:13)
[2019-09-23] MEDS ORDERED: GLUCAGON FOR INJ 1 MG VIAL SQ PRN (19:13)
[2019-09-23] MEDS ORDERED: PHARMACY GLYCEMIC MGMT CONSULT PRN (19:14)
[2019-09-23] MEDS: HYDROmorphone INJ 0.5 MG/0.5 ML SYR IV PRN ×2 (19:48→23:51)
[2019-09-23] MEDS: FAMOTIDINE 20 MG in SYRINGE 3 ML IV SCH (19:57)
[2019-09-23] MEDS: SODIUM CHLORIDE 0.9% 1000ML 1,000 ML IV SCH (19:58)
[2019-09-23 20:05] LABS: Base Excess ABG -0.7 mEq/L (-9-1.8); HCO3 ABG 22 mmol/L (19-24); Oxygen Saturation ABG 96.4 % (90-95); PCO2 ABG 31 mmHg (35-46); PO2 ABG 78 mmHg (80-95); pH ABG 7.46 (7.35-7.45)
[2019-09-23 20:06] LABS: Allen Test Pos (Pos)
[2019-09-23 20:29] LABS: INR 1.1 (0.9-1.1); Prothrombin Time 10.9 Seconds (9.0-12.0)
[2019-09-23 20:39] LABS: BUN Creatinine Ratio 7.9 (10-20); Calcium 9.1 mg/dl (8.5-10.1); Creatinine Clr Calc Pharmacy 67.1 ml/min; Est GFR (Non-African American) 59.6; Potassium 3.7 mmol/L (3.5-5.1)
[2019-09-23 20:40] LABS: Beta-Hydroxybutyrate 0.67 mg/dl (0.2-2.81)
--- NOTE | 2019-09-23 20:56 | Pharmacy Report ---
Glycemic Control Consultation - Date of Service September 23, 2019 - Scope Scope: Glycemic Pharmacist consulted for glycemic control and to write orders per [facility] inpatient glycemic control protocol - Objective Weight: 84.8 kg Accuchecks BSG (last 24hrs): 09/23/19 09/23/19 09/23/19 14:00 19:16 20:07 Glucose 222 H 185 H POC Glucose 177 H Laboratory Data (last 24hrs): 09/23/19 09/23/19 09/23/19 14:00 14:00 19:49 Potassium 3.7 Carbon Dioxide 19 L Anion Gap 13.0 H Creatinine 1.11 Est Cr Clr Drug Dosing 65.9 Osmolality 275 L Beta-Hydroxybutyric Acd 09/23/19 20:07 Potassium 3.7 Carbon Dioxide 23 Anion Gap 10.0 Creatinine 1.09 Est Cr Clr Drug Dosing 67.1 Osmolality Beta-Hydroxybutyric Acd 0.67 HbA1c: PENDING 09/23/19 - Recent Pertinent Medications Outpatient Anti-diabetic Regimen: * N/A new diagnosis * A1c = [] % [date] - Assessment & Plan Assessment & Plan: ASSESSMENT: * 49yo female - suspected new onset DM. PMH significant for Hep C. * In ED BSGs elevated, slightly acidotic, phos low. Labs appear c/w insulin deficiency/resistance. Hydrated with NSS x 2 liter bolus and then NS @ 125ml/hr * Since patient is naive and poor PO intake will start with low dose weight based SQ basal insulin insulin regimen and titrate based on BSG trends. PLAN FOR INPATIENT GLYCEMIC CONTROL: * Basal insulin * Lantus 15 units (0.2 units/kg) SQ x 1 dose and then re-evaluate tomorrow * Bolus insulin * NovoLog per scale ACHS & Q4hrs overnight * Goal Range: Low 110 mg/dL - High 140 mg/dL * Correction Factor: 30 mg/dL/unit * Nutritional / Prandial insulin per carb ratio of 1 unit per 9 grams CHO consumed * Please note that the plan above was derived based on current level of insulin resistance and hospital stress. These recommendations are appropriate for inpatient admission only. Plan of care upon discharge will need to be reassessed to avoid potential outpatient hypo/hyperglycemia. Thank you.
[2019-09-23] MEDS ORDERED: INSULIN GLARGINE SOLOSTAR 100 UNITS/ML 3 ML PEN SC ONE (21:00)
[2019-09-23 21:11] LABS: Hepatitis B Surface Antigen Neg (Neg)
[2019-09-23] MEDS: INSULIN ASPART 100 UNITS/ML 3 ML PEN SC SCH ×2 (21:15→23:50)
[2019-09-23] MEDS: POT PHOSPHATE MONOBASIC W/ SOD TAB PO SCH (21:16)
[2019-09-23 21:20] LABS: Hepatitis B Surface Ab Quant 9.18 mIU/mL (>or=10mIU/mL Immune); Hepatitis B Surface Antibody Non-Immune
[2019-09-23] MEDS: NITROGLYCERIN 2% OINTMENT 30GM TUBE EXT SCH (22:12)
[2019-09-24] MEDS: SODIUM CHLORIDE 0.9% 1000ML 1,000 ML IV SCH ×3 (03:00→20:09)
[2019-09-24] MEDS: INSULIN ASPART 100 UNITS/ML 3 ML PEN SC SCH ×5 (03:47→20:10)
[2019-09-24] MEDS: HYDROmorphone INJ 0.5 MG/0.5 ML SYR IV PRN ×4 (04:50→22:21)
[2019-09-24] MEDS: NITROGLYCERIN 2% OINTMENT 30GM TUBE EXT SCH ×4 (04:51→23:46)
[2019-09-24 05:49] LABS: Estimated Average Glucose 117 mg/dl; Hemoglobin A1C 5.7 % (4.5-5.6)
[2019-09-24 06:21] LABS: Mean Corpuscular Hgb Conc 35.1 g/dL (32-36); Mean Platelet Volume 11.8 fL (7.4-10.4); Platelet Count 222 K/uL (130-400)
[2019-09-24 06:47] LABS: Basophils # (auto) 0.02 K/uL (0-0.2); Basophils % (auto) 0.2 %; Eosinophils # (auto) 0.01 K/uL (0-0.5); Eosinophils % (auto) 0.1 %; Hematocrit (blood only) 46.7 % (37-47); Hemoglobin 16.4 g/dL (12.0-16.0); Immature Granulocytes # (auto) 0.01 K/uL (0.00-0.02); Immature Granulocytes % (auto) 0.1 %; Lymphocytes # (auto) 0.97 K/uL (1.2-3.4); Lymphocytes % (auto) 11.3 %; Mean Corpuscular Volume 85.4 fL (80-100); Monocytes # (auto) 0.96 K/uL (0.11-0.59); Monocytes % (auto) 11.2 %; Neutrophils # (auto) 6.63 K/uL (1.4-6.5); Neutrophils % (auto) 77.1 %; RDW Coefficient of Variation 14.3 % (11.5-14.5); RDW Standard Deviation 44.4 fL (36.4-46.3); Red Blood Count 5.47 M/uL (4.2-5.4)
[2019-09-24 06:51] LABS: Albumin Level 3.2 gm/dl (3.4-5.0); BUN Creatinine Ratio 14.8 (10-20); Calcium 8.5 mg/dl (8.5-10.1); Creatinine Clr Calc Pharmacy 76.2 ml/min; Est GFR (African American) 80.5; Est GFR (Non-African American) 69.4; Magnesium 1.5 mg/dl (1.8-2.4); Potassium 3.3 mmol/L (3.5-5.1)
[2019-09-24 06:55] LABS: Albumin Globulin Ratio 0.8 (0.9-2); Bilirubin,Total 0.8 mg/dl (0.2-1); Globulin 4.2 gm/dl (2.5-4.0); Phosphorus 3.9 mg/dl (2.5-4.9); Total Protein 7.4 gm/dl (6.4-8.2)
[2019-09-24] MEDS: AMLODIPINE BESYLATE 5 MG TAB PO SCH (10:03)
[2019-09-24] MEDS: ATENOLOL 25 MG TABLET PO SCH (10:03)
[2019-09-24] MEDS: POT PHOSPHATE MONOBASIC W/ SOD TAB PO SCH ×3 (10:03→17:47)
[2019-09-24] MEDS: DULOXETINE HCL 60 MG CAP PO SCH (10:04)
[2019-09-24] MEDS: NICOTINE 14 MG/24 HR PATCH TD SCH (10:04)
[2019-09-24] MEDS: PANTOprazole 40 MG TAB PO SCH (10:56)
[2019-09-24] MEDS: FAMOTIDINE 20 MG in SYRINGE 3 ML IV SCH ×2 (11:04→20:45)
--- NOTE | 2019-09-24 11:17 | Pharmacy Report ---
Pharmacy Glycemic Short Note 2 - Date of Service September 24, 2019 - Glycemic Short BSG Results (Last 24 hours): 09/23/19 09/23/19 09/23/19 14:00 19:16 20:07 Glucose 222 H 185 H POC Glucose 177 H 09/23/19 09/24/19 09/24/19 23:46 03:46 05:47 Glucose 123 H POC Glucose 148 H 131 H OUTPATIENT ANTIDIABETIC REGIMEN: * None * HbA1c 5.7% on 09/23/19 ASSESSMENT: * 49 yo F not on any outpatient antihyperglycemic medications with HbA1c suggestive of pre-diabetes * BSG's have improved significantly since admission * No additional Lantus this AM 2nd fasting BSG in range. Will add scale tonight based on BSG PLAN FOR INPATIENT GLYCEMIC CONTROL: * Basal insulin: Lantus SC HS x1 based on BSG * Hold for BSG less than 120 mg/dL * 10 units for BSG 120-180 mg/dL * 20 units for BSG greater than 180 mg/dL * Bolus insulin * NovoLog per scale ACHS or Q6hrs while NPO * Goal Range: Low 110 mg/dL - High 140 mg/dL * Correction Factor: 30 mg/dL/unit * Nutritional / Prandial insulin per carb ratio of 1 unit per 9 grams CHO consumed PLAN FOR DISCHARGE: * Encourage follow-up with PCP 2nd HbA1c indicative of pre-diabetes
[2019-09-24] MEDS: PROMETHAZINE HCL 6.25 MG in SODIUM CHLORIDE 0.9% 50 ML IV PRN ×2 (12:28→19:41)
--- NOTE | 2019-09-24 17:44 | Hospitalist Progress Note ---
Date of Service September 24, 2019 Assessment & Plan (1) Hypertensive emergency: Charleen Mathis is a 49 y/o female with past medical hx of Hep C, Nausea/Vomiting, stomach ulcers, HTN, Anxiety, current smoker who presented to [facility] via EMS for AMS and was admitted for HTN Emergency, Hyponatremia, and Intractable Nausea vomiting. Hypertensive Urgency: - On presentation HTN Emergency with BPs of 210s-240s/150s with suspected end organ damage by way of confusion. - Elevation of BP most likely multifactorial from unable to tolerate PO BP meds with hx of HTN, loss of fluids from vomiting and urinary frequency causing hemodynamic compensation. - Other signs of end organ damage; Troponin negative for cardiac, no shortness of breath, thought such high level could cause aortic dissection but no chest pain; LFTs normal for consideration for Liver damage. - Head CT was negative to ensure there was no Brain bleed. - BPs well controlled after restarting on beta-blockers - follow Intractable Vomiting: - ?if this is a result of HTN emergency vs viral gastroenteritis vs gastritis - In ED, she received Zofran 4mg IV and Phenergan 12.5mg IV for nausea/vomiting which seemed to help stop her vomiting and as allowing for PO water intake. - Aspiration precautions Abdominal pain - nonspecific exam - CT abdomen/pelvis - no pathology - ? sec to gastroentritis. - follow Altered Mental Status: - Daughter notes confusion as trying to put shirt on as pants which led to daughter calling 911. - This could be from HTN emergency end organ damage with multifactorial from dehydration - Resolved at this point Electrolyte abnormalities: - phosphate level 1.4 on admission; replaced with 30mmol of Kphos -> with repeat in AM of 3.9 - sodium 128 on admission; continued fluid replacement -> repeat in AM 132 - Magnesium 1.8 on admission; repeat in AM 1.5 - continue to monitor electrolytes Gastritis: - May benefit from Carafate QID as stated was on prior - No signs of current GI bleed; no blood streaking in vomitus - continued IV Pepcid, and Protonix Code: Full DVT ppx: SCDs (2) Intractable vomiting: (3) Altered mental status: (4) Hypophosphatemia: (5) Hyponatremia: (6) Hepatitis C: (7) Lower abdominal pain: (8) Gastritis: (9) Anxiety: Admission and Anticipated Discharge Date Admission Date: September 23, 2019 Supervising Physician Co-Signing Physician Notes Resident Physician Supervision Note: I independently interviewed and examined the patient and verified the alcantar history and physical, reviewed labs and image studies, discussed the case with the resident Dr. Lyons and agree with the findings and care plan. Subjective Patient has had some continued nausea and vomiting throughout the day today; initially refusing zofran as she did not think it was helpful but after starting with phenergan she felt considerably better. Previously had an EGD in 2019, that she recalls had some small ulcers throughout her stomach. Has not vomited any blood throughout the night. Abdominal pain has been persistent throughout the day without changes. Review of Systems Review of Systems: All systems reviewed & are unremarkable except as noted in Subjective Physical Exam Constitutional: WD/WN, vitals as above Eyes: PERRL, conjunctivae normal, anicteric sclerae Respiratory: normal respiratory effort, lungs clear to auscultation Cardiovascular: Rate/Rhythm: regular rate and regular rhythm Heart Sounds: normal S1 and normal S2; no gallop, no murmur and no cardiac rub Gastrointestinal (Abdomen): Percussion/Palpation: + abdomen tender (epigastric), abdomen soft and + hepatosplenomegaly; no guarding no CVA tenderness Results & Data ([facility]) Vital Signs (Past 12 Hours) Vital Signs Temp Pulse Pulse Resp BP BP Pulse Ox 09/24/19 16:48 70 09/24/19 14:35 62 18 135/87 94 09/24/19 08:00 80 09/24/19 07:27 36.6 C 74 18 122/86 92 Laboratory Results 09/24/19 09/24/19 09/24/19 Range/Units 20:09 16:34 11:59 WBC (4.8-10.8) K/uL RBC (4.2-5.4) M/uL Hgb (12.0-16.0) g/dL Hct (37-47) % MCV (80-100) fL MCH (25-34) pg MCHC (32-36) g/dL RDW Std Deviation (36.4-46.3) fL RDW Coeff of Bo (11.5-14.5) % Plt Count (130-400) K/uL MPV (7.4-10.4) fL Immature Gran % (Auto) % Neut % (Auto) % Lymph % (Auto) % [place] % (Auto) % Eos % (Auto) % Baso % (Auto) % Immature Gran # (Auto) (0.00-0.02) K/uL Neut # (Auto) (1.4-6.5) K/uL Lymph # (Auto) (1.2-3.4) K/uL [place] # (Auto) (0.11-0.59) K/uL Eos # (Auto) (0-0.5) K/uL Baso # (Auto) (0-0.2) K/uL Sodium (136-145) mmol/L Potassium (3.5-5.1) mmol/L Chloride (98-107) mmol/L Carbon Dioxide (21-32) mmol/L Anion Gap (3-11) BUN (7-18) mg/dl Creatinine (0.6-1.2) mg/dl Est Cr Clr Drug Dosing ml/min Est GFR ( Amer) Est GFR (Non-Af Amer) BUN/Creatinine Ratio (10-20) Glucose (70-99) mg/dl POC Glucose 116 H 119 H 119 H (70-99) mg/dl Estimat Average Glucose mg/dl Hemoglobin A1c (4.5-5.6) % Calcium (8.5-10.1) mg/dl Phosphorus (2.5-4.9) mg/dl Magnesium (1.8-2.4) mg/dl Total Bilirubin (0.2-1) mg/dl AST (15-37) U/L ALT (12-78) U/L Alkaline Phosphatase (45-117) U/L Total Protein (6.4-8.2) gm/dl Albumin (3.4-5.0) gm/dl Globulin (2.5-4.0) gm/dl Albumin/Globulin Ratio (0.9-2) Hep Bs Antigen (Neg) Hep Bs Antibody Hep Bs Antibody, Quant (>or=10mIU/mL Immune) mIU/mL Hepatitis C Antibody (Neg) HCV RNA Qual (TMA) 09/24/19 09/24/19 09/24/19 Range/Units 05:47 05:47 03:46 WBC 8.60 (4.8-10.8) K/uL RBC 5.47 H (4.2-5.4) M/uL Hgb 16.4 H (12.0-16.0) g/dL Hct 46.7 (37-47) % MCV 85.4 (80-100) fL MCH 30.0 (25-34) pg MCHC 35.1 (32-36) g/dL RDW Std Deviation 44.4 (36.4-46.3) fL RDW Coeff of Bo 14.3 (11.5-14.5) % Plt Count 222 (130-400) K/uL MPV 11.8 H (7.4-10.4) fL Immature Gran % (Auto) 0.1 % Neut % (Auto) 77.1 % Lymph % (Auto) 11.3 % [place] % (Auto) 11.2 % Eos % (Auto) 0.1 % Baso % (Auto) 0.2 % Immature Gran # (Auto) 0.01 (0.00-0.02) K/uL Neut # (Auto) 6.63 H (1.4-6.5) K/uL Lymph # (Auto) 0.97 L (1.2-3.4) K/uL [place] # (Auto) 0.96 H (0.11-0.59) K/uL Eos # (Auto) 0.01 (0-0.5) K/uL Baso # (Auto) 0.02 (0-0.2) K/uL Sodium 132 L (136-145) mmol/L Potassium 3.3 L (3.5-5.1) mmol/L Chloride 101 (98-107) mmol/L Carbon Dioxide 20 L (21-32) mmol/L Anion Gap 11.0 (3-11) BUN 14 D (7-18) mg/dl Creatinine 0.96 (0.6-1.2) mg/dl Est Cr Clr Drug Dosing 76.2 ml/min Est GFR ( Amer) 80.5 Est GFR (Non-Af Amer) 69.4 BUN/Creatinine Ratio 14.8 (10-20) Glucose 123 H (70-99) mg/dl POC Glucose 131 H (70-99) mg/dl Estimat Average Glucose mg/dl Hemoglobin A1c (4.5-5.6) % Calcium 8.5 (8.5-10.1) mg/dl Phosphorus 3.9 D (2.5-4.9) mg/dl Magnesium 1.5 L (1.8-2.4) mg/dl Total Bilirubin 0.8 D (0.2-1) mg/dl AST 17 (15-37) U/L ALT 23 (12-78) U/L Alkaline Phosphatase 55 (45-117) U/L Total Protein 7.4 D (6.4-8.2) gm/dl Albumin 3.2 L (3.4-5.0) gm/dl Globulin 4.2 H (2.5-4.0) gm/dl Albumin/Globulin Ratio 0.8 L (0.9-2) Hep Bs Antigen (Neg) Hep Bs Antibody Hep Bs Antibody, Quant (>or=10mIU/mL Immune) mIU/mL Hepatitis C Antibody (Neg) HCV RNA Qual (TMA) 09/23/19 09/23/19 09/23/19 Range/Units 23:46 20:07 20:07 WBC (4.8-10.8) K/uL RBC (4.2-5.4) M/uL Hgb (12.0-16.0) g/dL Hct (37-47) % MCV (80-100) fL MCH (25-34) pg MCHC (32-36) g/dL RDW Std Deviation (36.4-46.3) fL RDW Coeff of Bo (11.5-14.5) % Plt Count (130-400) K/uL MPV (7.4-10.4) fL Immature Gran % (Auto) % Neut % (Auto) % Lymph % (Auto) % [place] % (Auto) % Eos % (Auto) % Baso % (Auto) % Immature Gran # (Auto) (0.00-0.02) K/uL Neut # (Auto) (1.4-6.5) K/uL Lymph # (Auto) (1.2-3.4) K/uL [place] # (Auto) (0.11-0.59) K/uL Eos # (Auto) (0-0.5) K/uL Baso # (Auto) (0-0.2) K/uL Sodium (136-145) mmol/L Potassium (3.5-5.1) mmol/L Chloride (98-107) mmol/L Carbon Dioxide (21-32) mmol/L Anion Gap (3-11) BUN (7-18) mg/dl Creatinine (0.6-1.2) mg/dl Est Cr Clr Drug Dosing ml/min Est GFR ( Amer) Est GFR (Non-Af Amer) BUN/Creatinine Ratio (10-20) Glucose (70-99) mg/dl POC Glucose 148 H (70-99) mg/dl Estimat Average Glucose mg/dl Hemoglobin A1c (4.5-5.6) % Calcium (8.5-10.1) mg/dl Phosphorus (2.5-4.9) mg/dl Magnesium (1.8-2.4) mg/dl Total Bilirubin (0.2-1) mg/dl AST (15-37) U/L ALT (12-78) U/L Alkaline Phosphatase (45-117) U/L Total Protein (6.4-8.2) gm/dl Albumin (3.4-5.0) gm/dl Globulin (2.5-4.0) gm/dl Albumin/Globulin Ratio (0.9-2) Hep Bs Antigen Neg (Neg) Hep Bs Antibody Non-Immune Hep Bs Antibody, Quant 9.18 L (>or=10mIU/mL Immune) mIU/mL Hepatitis C Antibody Prelim Pos A (Neg) HCV RNA Qual (TMA) Pending 09/23/19 Range/Units 14:00 WBC (4.8-10.8) K/uL RBC (4.2-5.4) M/uL Hgb (12.0-16.0) g/dL Hct (37-47) % MCV (80-100) fL MCH (25-34) pg MCHC (32-36) g/dL RDW Std Deviation (36.4-46.3) fL RDW Coeff of Bo (11.5-14.5) % Plt Count (130-400) K/uL MPV (7.4-10.4) fL Immature Gran % (Auto) % Neut % (Auto) % Lymph % (Auto) % [place] % (Auto) % Eos % (Auto) % Baso % (Auto) % Immature Gran # (Auto) (0.00-0.02) K/uL Neut # (Auto) (1.4-6.5) K/uL Lymph # (Auto) (1.2-3.4) K/uL [place] # (Auto) (0.11-0.59) K/uL Eos # (Auto) (0-0.5) K/uL Baso # (Auto) (0-0.2) K/uL Sodium (136-145) mmol/L Potassium (3.5-5.1) mmol/L Chloride (98-107) mmol/L Carbon Dioxide (21-32) mmol/L Anion Gap (3-11) BUN (7-18) mg/dl Creatinine (0.6-1.2) mg/dl Est Cr Clr Drug Dosing ml/min Est GFR ( Amer) Est GFR (Non-Af Amer) BUN/Creatinine Ratio (10-20) Glucose (70-99) mg/dl POC Glucose (70-99) mg/dl Estimat Average Glucose 117 mg/dl Hemoglobin A1c 5.7 H (4.5-5.6) % Calcium (8.5-10.1) mg/dl Phosphorus (2.5-4.9) mg/dl Magnesium (1.8-2.4) mg/dl Total Bilirubin (0.2-1) mg/dl AST (15-37) U/L ALT (12-78) U/L Alkaline Phosphatase (45-117) U/L Total Protein (6.4-8.2) gm/dl Albumin (3.4-5.0) gm/dl Globulin (2.5-4.0) gm/dl Albumin/Globulin Ratio (0.9-2) Hep Bs Antigen (Neg) Hep Bs Antibody Hep Bs Antibody, Quant (>or=10mIU/mL Immune) mIU/mL Hepatitis C Antibody (Neg) HCV RNA Qual (TMA) Medications Administered Current Inpatient Medications Acetaminophen (Tylenol) 650 mg PO Q4H PRN PRN Reason: Pain or Fever Stop: 10/23/19 19:12 Last Admin: 09/24/19 17:46 Dose: 650 mg Documented by: Amlodipine Besylate (Norvasc) 5 mg PO DAILY [facility] Stop: 10/24/19 08:59 Last Admin: 09/24/19 10:03 Dose: 5 mg Documented by: Atenolol (Tenormin) 25 mg PO DAILY TAM Stop: 10/24/19 08:59 Last Admin: 09/24/19 10:03 Dose: 25 mg Documented by: Dextrose (Dextrose 50%) 25 - 50 ml IV UD PRN; Protocol PRN Reason: Hypoglycemia Protocol Stop: 10/23/19 19:12 Duloxetine HCl (Cymbalta) 60 mg PO DAILY ATM Stop: 10/24/19 08:59 Last Admin: 09/24/19 10:04 Dose: 60 mg Documented by: Glucagon (Glucagen) 1 mg SQ UD PRN; Protocol PRN Reason: Hypoglycemia Protocol Stop: 10/23/19 19:12 Glucose (Dex4 Glucose) 4 - 8 tabs PO UD PRN; Protocol PRN Reason: Hypoglycemia Protocol Stop: 10/23/19 19:12 Glucose (Glucose 40%) 15 - 30 gm PO UD PRN; Protocol PRN Reason: Hypoglycemia Protocol Stop: 10/23/19 19:12 Hydromorphone HCl (Dilaudid) 0.25 mg IV Q6H PRN PRN Reason: Pain Stop: 10/07/19 19:12 Last Admin: 09/24/19 16:27 Dose: 0.25 mg Documented by: Famotidine 20 mg/ Syringe 5 mls @ 2.5 mls/min IV BID TAM Stop: 10/23/19 18:19 Last Admin: 09/24/19 20:45 Dose: 2.5 mls/min Documented by: Sodium Chloride (Nss 1000ml) 1,000 mls @ 125 mls/hr IV .Q8H TAM Stop: 10/23/19 19:12 Last Admin: 09/24/19 20:09 Dose: 125 mls/hr Documented by: Lorazepam (Ativan) 0.5 mg in 1 mls @ 1 mls/min IV Q4H PRN PRN Reason: Anxiety/Agitation Stop: 10/23/19 19:12 Promethazine HCl 6.25 mg/ (Sodium Chloride) 50.25 mls @ 201 mls/hr IV Q6H PRN PRN Reason: Nausea And Vomiting Stop: 10/24/19 11:54 Last Infusion: 09/24/19 20:17 Dose: Infused Documented by: Potassium Chloride (K Raghu / Wtr) 10 meq in 100 mls @ 100 mls/hr IV Q1H TAM Stop: 09/24/19 21:29 Last Admin: 09/24/19 18:51 Dose: 100 mls/hr Documented by: Insulin Aspart (Novolog Flexpen) 0 units SC ACHS [facility] Stop: 10/23/19 20:59 Last Admin: 09/24/19 20:10 Dose: Not Given Documented by: Miscellaneous (Carbohydrates For Hypoglycemia) 15 - 30 gm PO UD PRN PRN Reason: Hypoglycemia Protocol Stop: 10/23/19 19:12 Miscellaneous (Remove Nicoderm Patch) 1 ea N/A DAILY@0859 [facility] Stop: 10/24/19 08:58 Last Admin: 09/24/19 10:09 Dose: Not Given Documented by: Miscellaneous Information (Consult Glycemic Management Pharmacy) 1 ea N/A UD PRN; Protocol PRN Reason: Consult Stop: 10/23/19 19:13 Nicotine ([facility]oderm Cq) [facility] [place] Stop: 10/24/19 09:44 Last Admin: 09/24/19 10:04 Dose: 14 mg Documented by: Nitroglycerin (Nitrostat) 0.4 mg SL UD PRN PRN Reason: Chest Pain Stop: 10/23/19 19:12 Nitroglycerin (Nitro-Bid 2%) 0.5 inch EXT Q6 TAM Stop: 10/23/19 22:59 Last Admin: 09/24/19 19:41 Dose: 0.5 inch Documented by: Ondansetron HCl (Zofran) 4 mg IV Q6H PRN PRN Reason: Nausea Stop: 10/23/19 19:12 Last Admin: 09/24/19 17:46 Dose: 4 mg Documented by: Pantoprazole Sodium (Protonix) 40 mg PO QAM [facility] Stop: 10/24/19 10:14 Last Admin: 09/24/19 10:56 Dose: 40 mg Documented by: Resident Activity Tracking Resident Involvement: Resident Care Provided Care Provided: Adult Hospital Medicine (1) Altered mental status Altered mental status type: unspecified Qualified Code(s): R41.82 - Altered mental status, unspecified (2) Intractable vomiting Nausea presence: unspecified Vomiting type: unspecified Qualified Code(s): R11.10 - Vomiting, unspecified
[2019-09-24] MEDS: POTASSIUM CHLORIDE / WTR 10 MEQ/100 ML PLCT IV SCH ×4 (17:46→22:21)
[2019-09-24] MEDS: ONDANSETRON INJ 2 MG/ML 2 ML VIAL IV PRN ×2 (17:46→23:53)
[2019-09-24] MEDS: ACETAMINOPHEN 325 MG TAB PO PRN (17:46)
[2019-09-24] MEDS: MAGNESIUM SULFATE / D5W 1 GM/100 ML BAG IV SCH ×2 (17:46→18:51)
[2019-09-24] MEDS ORDERED: INSULIN GLARGINE SOLOSTAR 100 UNITS/ML 3 ML PEN SC ONE (21:00)
[2019-09-25] MEDS: PROMETHAZINE HCL 6.25 MG in SODIUM CHLORIDE 0.9% 50 ML IV PRN ×3 (03:16→18:18)
[2019-09-25] MEDS: SODIUM CHLORIDE 0.9% 1000ML 1,000 ML IV SCH ×3 (03:38→18:20)
[2019-09-25] MEDS: NITROGLYCERIN 2% OINTMENT 30GM TUBE EXT SCH (06:10)
[2019-09-25] MEDS: ONDANSETRON INJ 2 MG/ML 2 ML VIAL IV PRN ×3 (06:12→23:35)
[2019-09-25] MEDS: HYDROmorphone INJ 0.5 MG/0.5 ML SYR IV PRN (06:12)
[2019-09-25] MEDS ORDERED: PROCHLORPERAZINE 2.5 MG in SYRINGE 4 ML IV ONE (08:00)
[2019-09-25] MEDS: FAMOTIDINE 20 MG in SYRINGE 3 ML IV SCH ×2 (08:22→22:15)
[2019-09-25] MEDS: PANTOprazole 40 MG TAB PO SCH (08:24)
[2019-09-25] MEDS: AMLODIPINE BESYLATE 5 MG TAB PO SCH (08:24)
[2019-09-25] MEDS: ATENOLOL 25 MG TABLET PO SCH (08:24)
[2019-09-25] MEDS: INSULIN ASPART 100 UNITS/ML 3 ML PEN SC SCH ×4 (09:14→21:38)
[2019-09-25] MEDS: DULOXETINE HCL 60 MG CAP PO SCH (09:49)
[2019-09-25 10:00] LABS: Basophils # (auto) 0.01 K/uL (0-0.2); Basophils % (auto) 0.1 %; Hematocrit (blood only) 46.7 % (37-47); Immature Granulocytes # (auto) 0.01 K/uL (0.00-0.02); Immature Granulocytes % (auto) 0.1 %; Lymphocytes # (auto) 0.43 K/uL (1.2-3.4); Lymphocytes % (auto) 3.4 %; Mean Corpuscular Hemoglobin 29.6 pg (25-34); Mean Corpuscular Hgb Conc 34.3 g/dL (32-36); Mean Corpuscular Volume 86.3 fL (80-100); Mean Platelet Volume 11.2 fL (7.4-10.4); Monocytes # (auto) 0.82 K/uL (0.11-0.59); Monocytes % (auto) 6.5 %; Neutrophils # (auto) 11.36 K/uL (1.4-6.5); Neutrophils % (auto) 89.9 %; Platelet Count 165 K/uL (130-400); RDW Coefficient of Variation 14.5 % (11.5-14.5); RDW Standard Deviation 45.9 fL (36.4-46.3); Red Blood Count 5.41 M/uL (4.2-5.4); White Blood Count 12.63 K/uL (4.8-10.8)
[2019-09-25] MEDS: NICOTINE 14 MG/24 HR PATCH TD SCH (10:04)
[2019-09-25 10:36] LABS: Albumin Level 3.8 gm/dl (3.4-5.0); BUN Creatinine Ratio 15.6 (10-20); Calcium 8.7 mg/dl (8.5-10.1); Creatinine Clr Calc Pharmacy 93.5 ml/min; Est GFR (African American) 103.5; Est GFR (Non-African American) 89.3; Globulin 3.9 gm/dl (2.5-4.0); Magnesium 1.9 mg/dl (1.8-2.4); Total Protein 7.7 gm/dl (6.4-8.2)
[2019-09-25 10:37] LABS: Phosphorus 1.7 mg/dl (2.5-4.9)
[2019-09-25] MEDS ORDERED: LABETALOL HCL IV 5 MG/ML 20ML IV STA (12:58)
[2019-09-25] MEDS ORDERED: KETOROLAC TROMETHAMINE 15 MG/ML VIAL IV ONE (14:30)
--- NOTE | 2019-09-25 15:03 | Hospitalist Progress Note ---
Date of Service September 25, 2019 Assessment & Plan (1) Hypertensive emergency: Charleen Mathis is a 49 y/o female with past medical hx of Hep C, Nausea/Vomiting, stomach ulcers, HTN, Anxiety, current smoker who presented to [facility] via EMS for AMS and was admitted for HTN Emergency, Hyponatremia, and Intractable Nausea vomiting. Hypertensive Urgency: - On presentation HTN Emergency with BPs of 210s-240s/150s with suspected end organ damage by way of confusion. - Elevation of BP most likely multifactorial from unable to tolerate PO BP meds with hx of HTN, loss of fluids from vomiting and urinary frequency causing hemodynamic compensation. Head CT was negative to ensure there was no Brain bleed. - today had two BPs measure at >200/100; given 10mg of IV labetalol with improvement in BP to 140s/80s - continue to monitor Intractable Vomiting and abdominal pain: - ?if this is a result of HTN emergency vs viral gastroenteritis vs gastritis - continue Phenergan 6.25mg IV prn - GI consulted: performing EGD today Altered Mental Status: - Daughter notes confusion as trying to put shirt on as pants which led to daughter calling 911. - This could be from HTN emergency end organ damage with multifactorial from dehydration - Resolved at this point Electrolyte abnormalities: - phosphate level 1.4 on admission; replaced with 30mmol of Kphos -> with repeat in AM of 3.9 - sodium 128 on admission; continued fluid replacement -> repeat in AM 132 - Magnesium 1.8 on admission; repeat in AM 1.5 - continue to monitor electrolytes Gastritis: - No signs of current GI bleed; no blood streaking in vomitus; continued abdominal pain - continued IV Pepcid, and Protonix as needed - GI consulted: appreciate recs following EGD Code: Full DVT ppx: SCDs Admission and Anticipated Discharge Date Admission Date: September 23, 2019 Supervising Physician Co-Signing Physician Notes Resident Physician Supervision Note: I independently interviewed and examined the patient and verified the alcantar history and physical, reviewed labs and image studies, discussed the case with the resident Dr. Lyons and agree with the findings and care plan. Subjective Patient has had some continued nausea and vomiting throughout the day today; with elevated blood pressures into 200s/100s. Has not vomited any blood throughout the night, continues to have bdominal pain has been persistent th roughout the day without changes or response to medications. Other than the nausea, vomiting, or abdominal pain; which were not consistently present during elevated blood pressure times, she has had no continued concerns. Had good improvement in the abdominal pain with a heating pad. Review of Systems Review of Systems: All systems reviewed & are unremarkable except as noted in Subjective Physical Exam Constitutional: WD/WN, vitals as above Respiratory: normal respiratory effort, lungs clear to auscultation Cardiovascular: Rate/Rhythm: regular rate and regular rhythm Heart Sounds: normal S1 and normal S2; no gallop, no murmur and no cardiac rub Gastrointestinal (Abdomen): Percussion/Palpation: + abdomen tender (epigastric), abdomen soft and + hepatosplenomegaly; no guarding Neurologic: patellar DTR's 2+ bilat, sensation intact and PERRL, EOMI, accommodation nl, no face palsy, no dysarthria deep tendon reflexes 2+ bilaterally, normal sensation to monofilament, moves all extremities and awake; no focal motor deficits Psychiatric: A+Ox3, euthymic affect Results & Data ([facility]) Vital Signs (Past 12 Hours) Vital Signs Temp Pulse Resp BP BP Pulse Ox 09/25/19 14:17 149/89 H 09/25/19 13:55 169/91 H 09/25/19 11:53 204/116 H 211/118 H 09/25/19 11:33 37.7 C H 88 18 193/111 H 92 09/25/19 06:37 36.5 C 70 18 172/114 H 92 09/25/19 05:51 176/110 H 09/25/19 03:40 143/83 H Laboratory Results 09/25/19 09/25/19 09/25/19 Range/Units 15:00 11:25 09:36 WBC (4.8-10.8) K/uL RBC (4.2-5.4) M/uL Hgb (12.0-16.0) g/dL Hct (37-47) % MCV (80-100) fL MCH (25-34) pg MCHC (32-36) g/dL RDW Std Deviation (36.4-46.3) fL RDW Coeff of Bo (11.5-14.5) % Plt Count (130-400) K/uL MPV (7.4-10.4) fL Immature Gran % (Auto) % Neut % (Auto) % Lymph % (Auto) % [place] % (Auto) % Eos % (Auto) % Baso % (Auto) % Immature Gran # (Auto) (0.00-0.02) K/uL Neut # (Auto) (1.4-6.5) K/uL Lymph # (Auto) (1.2-3.4) K/uL [place] # (Auto) (0.11-0.59) K/uL Eos # (Auto) (0-0.5) K/uL Baso # (Auto) (0-0.2) K/uL Sodium 132 L (136-145) mmol/L Potassium 4.0 D (3.5-5.1) mmol/L Chloride 102 (98-107) mmol/L Carbon Dioxide 22 (21-32) mmol/L Anion Gap 8.0 (3-11) BUN 12 (7-18) mg/dl Creatinine 0.78 (0.6-1.2) mg/dl Est Cr Clr Drug Dosing 93.5 ml/min Est GFR ( Amer) 103.5 Est GFR (Non-Af Amer) 89.3 BUN/Creatinine Ratio 15.6 (10-20) Glucose 93 (70-99) mg/dl POC Glucose 102 H (70-99) mg/dl Calcium 8.7 (8.5-10.1) mg/dl Phosphorus 1.7 L D (2.5-4.9) mg/dl Magnesium 1.9 (1.8-2.4) mg/dl Total Bilirubin 1.0 (0.2-1) mg/dl AST 24 (15-37) U/L ALT 28 (12-78) U/L Alkaline Phosphatase 49 (45-117) U/L Total Protein 7.7 (6.4-8.2) gm/dl Albumin 3.8 (3.4-5.0) gm/dl Globulin 3.9 (2.5-4.0) gm/dl Albumin/Globulin Ratio 1.0 (0.9-2) POC Ur Test NEG (NEG) 09/25/19 09/25/19 09/24/19 Range/Units 09:36 07:49 20:09 WBC 12.63 H (4.8-10.8) K/uL RBC 5.41 H (4.2-5.4) M/uL Hgb 16.0 (12.0-16.0) g/dL Hct 46.7 (37-47) % MCV 86.3 (80-100) fL MCH 29.6 (25-34) pg MCHC 34.3 (32-36) g/dL RDW Std Deviation 45.9 (36.4-46.3) fL RDW Coeff of Bo 14.5 (11.5-14.5) % Plt Count 165 (130-400) K/uL MPV 11.2 H (7.4-10.4) fL Immature Gran % (Auto) 0.1 % Neut % (Auto) 89.9 % Lymph % (Auto) 3.4 % [place] % (Auto) 6.5 % Eos % (Auto) 0.0 % Baso % (Auto) 0.1 % Immature Gran # (Auto) 0.01 (0.00-0.02) K/uL Neut # (Auto) 11.36 H (1.4-6.5) K/uL Lymph # (Auto) 0.43 L (1.2-3.4) K/uL [place] # (Auto) 0.82 H (0.11-0.59) K/uL Eos # (Auto) 0.00 (0-0.5) K/uL Baso # (Auto) 0.01 (0-0.2) K/uL Sodium (136-145) mmol/L Potassium (3.5-5.1) mmol/L Chloride (98-107) mmol/L Carbon Dioxide (21-32) mmol/L Anion Gap (3-11) BUN (7-18) mg/dl Creatinine (0.6-1.2) mg/dl Est Cr Clr Drug Dosing ml/min Est GFR ( Amer) Est GFR (Non-Af Amer) BUN/Creatinine Ratio (10-20) Glucose (70-99) mg/dl POC Glucose 118 H 116 H (70-99) mg/dl Calcium (8.5-10.1) mg/dl Phosphorus (2.5-4.9) mg/dl Magnesium (1.8-2.4) mg/dl Total Bilirubin (0.2-1) mg/dl AST (15-37) U/L ALT (12-78) U/L Alkaline Phosphatase (45-117) U/L Total Protein (6.4-8.2) gm/dl Albumin (3.4-5.0) gm/dl Globulin (2.5-4.0) gm/dl Albumin/Globulin Ratio (0.9-2) POC Ur Test (NEG) 09/24/19 Range/Units 16:34 WBC (4.8-10.8) K/uL RBC (4.2-5.4) M/uL Hgb (12.0-16.0) g/dL Hct (37-47) % MCV (80-100) fL MCH (25-34) pg MCHC (32-36) g/dL RDW Std Deviation (36.4-46.3) fL RDW Coeff of Bo (11.5-14.5) % Plt Count (130-400) K/uL MPV (7.4-10.4) fL Immature Gran % (Auto) % Neut % (Auto) % Lymph % (Auto) % [place] % (Auto) % Eos % (Auto) % Baso % (Auto) % Immature Gran # (Auto) (0.00-0.02) K/uL Neut # (Auto) (1.4-6.5) K/uL Lymph # (Auto) (1.2-3.4) K/uL [place] # (Auto) (0.11-0.59) K/uL Eos # (Auto) (0-0.5) K/uL Baso # (Auto) (0-0.2) K/uL Sodium (136-145) mmol/L Potassium (3.5-5.1) mmol/L Chloride (98-107) mmol/L Carbon Dioxide (21-32) mmol/L Anion Gap (3-11) BUN (7-18) mg/dl Creatinine (0.6-1.2) mg/dl Est Cr Clr Drug Dosing ml/min Est GFR ( Amer) Est GFR (Non-Af Amer) BUN/Creatinine Ratio (10-20) Glucose (70-99) mg/dl POC Glucose 119 H (70-99) mg/dl Calcium (8.5-10.1) mg/dl Phosphorus (2.5-4.9) mg/dl Magnesium (1.8-2.4) mg/dl Total Bilirubin (0.2-1) mg/dl AST (15-37) U/L ALT (12-78) U/L Alkaline Phosphatase (45-117) U/L Total Protein (6.4-8.2) gm/dl Albumin (3.4-5.0) gm/dl Globulin (2.5-4.0) gm/dl Albumin/Globulin Ratio (0.9-2) POC Ur Test (NEG) Medications Administered Current Inpatient Medications Acetaminophen (Tylenol) 650 mg PO Q4H PRN PRN Reason: Pain or Fever Stop: 10/23/19 19:12 Last Admin: 09/24/19 17:46 Dose: 650 mg Documented by: Amlodipine Besylate (Norvasc) 5 mg PO DAILY TAM Stop: 10/24/19 08:59 Last Admin: 09/25/19 08:24 Dose: 5 mg Documented by: Atenolol (Tenormin) 25 mg PO DAILY TAM Stop: 10/24/19 08:59 Last Admin: 09/25/19 08:24 Dose: 25 mg Documented by: Dextrose (Dextrose 50%) 25 - 50 ml IV UD PRN; Protocol PRN Reason: Hypoglycemia Protocol Stop: 10/23/19 19:12 Duloxetine HCl (Cymbalta) 60 mg PO DAILY TAM Stop: 10/24/19 08:59 Last Admin: 09/25/19 09:49 Dose: 60 mg Documented by: Glucagon (Glucagen) 1 mg SQ UD PRN; Protocol PRN Reason: Hypoglycemia Protocol Stop: 10/23/19 19:12 Glucose (Dex4 Glucose) 4 - 8 tabs PO UD PRN; Protocol PRN Reason: Hypoglycemia Protocol Stop: 10/23/19 19:12 Glucose (Glucose 40%) 15 - 30 gm PO UD PRN; Protocol PRN Reason: Hypoglycemia Protocol Stop: 10/23/19 19:12 Hydromorphone HCl (Dilaudid) 0.25 mg IV Q6H PRN PRN Reason: Pain Stop: 10/07/19 19:12 Last Admin: 09/25/19 06:12 Dose: 0.25 mg Documented by: Famotidine 20 mg/ Syringe 5 mls @ 2.5 mls/min IV BID TAM Stop: 10/23/19 18:19 Last Admin: 09/25/19 08:22 Dose: 2.5 mls/min Documented by: Sodium Chloride (Nss 1000ml) 1,000 mls @ 125 mls/hr IV .Q8H TAM Stop: 10/23/19 19:12 Last Admin: 09/25/19 11:04 Dose: 125 mls/hr Documented by: Lorazepam (Ativan) 0.5 mg in 1 mls @ 1 mls/min IV Q4H PRN PRN Reason: Anxiety/Agitation Stop: 10/23/19 19:12 Promethazine HCl 6.25 mg/ (Sodium Chloride) 50.25 mls @ 201 mls/hr IV Q6H PRN PRN Reason: Nausea And Vomiting Stop: 10/24/19 11:54 Last Infusion: 09/25/19 10:05 Dose: Infused Documented by: Sodium Chloride (Nss 1000ml) 1,000 mls @ 15 mls/hr IV .Q24H [facility] Stop: 09/26/19 15:29 Insulin Aspart (Novolog Flexpen) 0 units SC ACHS [facility] Stop: 10/23/19 20:59 Last Admin: 09/25/19 13:17 Dose: Not Given Documented by: Miscellaneous (Carbohydrates For Hypoglycemia) 15 - 30 gm PO UD PRN PRN Reason: Hypoglycemia Protocol Stop: 10/23/19 19:12 Miscellaneous (Remove Nicoderm Patch) 1 ea N/A DAILY@0859 [facility] Stop: 10/24/19 08:58 Last Admin: 09/25/19 09:14 Dose: 1 ea Documented by: Miscellaneous Information (Consult Glycemic Management Pharmacy) 1 ea N/A UD PRN; Protocol PRN Reason: Consult Stop: 10/23/19 19:13 Nicotine (Nicoderm Cq) 14 mg TD QAM [facility] Stop: 10/24/19 09:44 Last Admin: 09/25/19 10:04 Dose: Not Given Documented by: Nitroglycerin (Nitrostat) 0.4 mg SL UD PRN PRN Reason: Chest Pain Stop: 10/23/19 19:12 Ondansetron HCl (Zofran) 4 mg IV Q6H PRN PRN Reason: Nausea Stop: 10/23/19 19:12 Last Admin: 09/25/19 12:09 Dose: 4 mg Documented by: Pantoprazole Sodium (Protonix) 40 mg PO QAM [facility] Stop: 10/24/19 10:14 Last Admin: 09/25/19 08:24 Dose: 40 mg Documented by: Resident Activity Tracking Resident Involvement: Resident Care Provided Care Provided: Adult Hospital Medicine
[2019-09-25] MEDS ORDERED: LIDOCAINE HCL 2% 2 ML VIAL/AMP(20MG/ML) INFIL ONE (15:05)
[2019-09-25] MEDS ORDERED: PROPOFOL IV EMULSION 10 MG/ML 20 ML VIAL IV ONE ×2 (15:05→15:51)
--- NOTE | 2019-09-25 15:10 | Anesthesiology Consultation ---
Date of Service September 25, 2019 Assessment & Plan (1) Encounter for pre-operative examination: Chart Review Chart Review: Acceptable Risk for Surgery (the patient's hypertension continues to be treated) and Patient NOT seen in Pre Admission Testing Consults Requested medicine is following the patient History Surgery Operation Date: 09/25/19 17:45 Proposed Procedures p Esophagogastroduodenoscopy Dr Georgina Erickson Height/Weight Height: 5 ft 5 in Weight: 84.3 kg Allergies Allergy/AdvReac Type Severity Reaction Status Date / Time codeine Allergy Unknown GI SYMPTOMS Verified 09/25/19 15:07 tramadol Allergy Unknown GI SYMPTOMS Verified 09/25/19 15:07 morphine AdvReac Unknown N/V Verified 09/25/19 15:07 hydromorphone [From Dilaudid] AdvReac Nausea Verified 09/25/19 15:07 Medications Home Medications Medication Instructions Recorded Confirmed Last Taken alprazolam 1 mg PO TID PRN 05/15/18 09/23/19 05/14/18 atenolol 25 mg PO DAILY 05/15/18 09/23/19 05/14/18 lisinopril 20 mg PO DAILY 05/15/18 09/23/19 05/14/18 pantoprazole 40 mg PO DAILY 05/15/18 09/23/19 05/14/18 amlodipine 5 mg PO DAILY 09/23/19 09/23/19 Unknown duloxetine 60 mg PO DAILY 09/23/19 09/23/19 Unknown metoclopramide HCl 10 mg PO ACHS 09/23/19 09/23/19 Unknown ropinirole 0 mg PO UD 09/23/19 09/23/19 Unknown Active Medications Generic Name Dose Route Start Last Admin Trade Name Freq PRN Reason Stop Dose Admin Acetaminophen 650 mg 09/23/19 19:13 09/24/19 17:46 Tylenol PO 10/23/19 19:12 650 mg Q4H PRN Administration Pain or Fever Amlodipine Besylate 5 mg 09/24/19 09:00 09/25/19 08:24 Norvasc PO 10/24/19 08:59 5 mg DAILY TAM Administration Atenolol 25 mg 09/24/19 09:00 09/25/19 08:24 Tenormin PO 10/24/19 08:59 25 mg DAILY TAM Administration Duloxetine HCl 60 mg 09/24/19 09:00 09/25/19 09:49 Cymbalta PO 10/24/19 08:59 60 mg DAILY TAM Administration Hydromorphone HCl 0.25 mg 09/24/19 10:23 09/25/19 06:12 Dilaudid IV 10/07/19 19:12 0.25 mg Q6H PRN Administration Pain Famotidine 20 mg/ Syringe 5 mls @ 2.5 mls/min 09/23/19 18:20 09/25/19 08:22 IV 10/23/19 18:19 2.5 mls/min BID TAM Administration Sodium Chloride 1,000 mls @ 125 mls/hr 09/23/19 19:13 09/25/19 11:04 Nss 1000ml IV 10/23/19 19:12 125 mls/hr .Q8H TAM Administration Promethazine HCl 6.25 mg/ 50.25 mls @ 201 mls/hr 09/24/19 11:55 09/25/19 10:05 Sodium Chloride IV 10/24/19 11:54 Infused Q6H PRN Infusion Nausea And Vomiting Insulin Aspart 0 units 09/23/19 21:00 09/25/19 13:17 Novolog Flexpen SC 10/23/19 20:59 Not Given ACHS TAM Miscellaneous 1 ea 09/24/19 08:59 09/25/19 09:14 Remove Nicoderm Patch N/A 10/24/19 08:58 1 ea DAILY@0859 TAM Administration Nicotine 14 mg 09/24/19 09:45 09/25/19 10:04 Nicoderm Cq TD 10/24/19 09:44 Not Given QAM TAM Ondansetron HCl 4 mg 09/23/19 19:13 09/25/19 12:09 Zofran IV 10/23/19 19:12 4 mg Q6H PRN Administration Nausea Pantoprazole Sodium 40 mg 09/24/19 10:15 09/25/19 08:24 Protonix PO 10/24/19 10:14 40 mg QAM TAM Administration Past Medical History Medical History Anxiety Gastritis (Acute) Hx of Crohn's disease Hypertension Migraine UTI (urinary tract infection) (Acute) Past Family History Family History Other Hypertension Past Surgical History Surgical History History of appendectomy History of delivery History of orthopedic surgery Social History Smoking Status: Heavy tobacco smoker tobacco type: cigarettes Smoking cigarettes per day: 40 Do You Dip or Chew Tobacco: No Hx Alcohol Use: No Hx Substance Use: Yes substance use type: prescription drug Substance Use Type Other:: aprazolam Last Used Substance: Unknown Physical Exam Vital Signs Last Vital Signs Temp 37.2 C 09/25/19 15:10 Pulse 66 09/25/19 15:10 Resp 12 09/25/19 15:10 BP 172/105 H 09/25/19 15:10 Pulse Ox 92 09/25/19 15:10 Testing Laboratory Results 09/25/19 09:36 09/25/19 09:36 PT 10.9 Seconds (9.0-12.0) 09/23/19 20:07 INR 1.1 (0.9-1.1) 09/23/19 20:07 Hemoglobin A1c 5.7 % (4.5-5.6) H 09/23/19 14:00 Urine Color Yellow 09/23/19 16:30 Urine Appearance Clear (Clear) 09/23/19 16:30 Urine pH 8.5 (4.5-7.5) H 09/23/19 16:30 Ur Specific [place] 1.032 (1.000-1.030) H 09/23/19 16:30 Urine Protein 4+ (Negative) H 09/23/19 16:30 Urine Glucose (UA) 1+ (Negative) H 09/23/19 16:30 Urine Ketones Negative (Negative) 09/23/19 16:30 Urine Nitrite Negative (Negative) 09/23/19 16:30 Ur Leukocyte Esterase Negative (Negative) 09/23/19 16:30 Urine WBC (Auto) 5-10 /hpf (0-5) H 09/23/19 16:30 Urine RBC (Auto) 5-10 /hpf (0-4) H 09/23/19 16:30 U Hyaline Cast (Auto) 1-5 /lpf (0-5) 09/23/19 16:30 U Epithel Cells (Auto) >30 /lpf (0-5) H 09/23/19 16:30 Urine Bacteria (Auto) Negative (Negative) 09/23/19 16:30 09/25/19 09/25/19 11:25 07:49 POC Glucose 102 H 118 H Electrocardiogram Date: 09/23/19 SR with sinus arrhythmia and PVCs, rate 90, possible L atrial enlargment
[2019-09-25] MEDS ORDERED: HydrALAZINE HCL 20 MG/ML VIAL ONE (15:17)
[2019-09-25] MEDS ORDERED: SODIUM CHLORIDE 0.9% 1000ML 1,000 ML IV SCH (15:30)
--- NOTE | 2019-09-25 15:30 | History & Physical Report ---
Date of Service September 25, 2019 History of Present Illness Chief Complaint: N and V Primary Care Provider: NO PCP For EGD Allergies Allergy/AdvReac Type Severity Reaction Status Date / Time codeine Allergy Unknown GI SYMPTOMS Verified 09/25/19 15:07 tramadol Allergy Unknown GI SYMPTOMS Verified 09/25/19 15:07 morphine AdvReac Unknown N/V Verified 09/25/19 15:07 hydromorphone [From Dilaudid] AdvReac Nausea Verified 09/25/19 15:07 Home Medications Home Medications Medication Instructions Recorded Confirmed Type alprazolam 1 mg PO TID PRN 05/15/18 09/23/19 History atenolol 25 mg PO DAILY 05/15/18 09/23/19 History lisinopril 20 mg PO DAILY 05/15/18 09/23/19 History pantoprazole 40 mg PO DAILY 05/15/18 09/23/19 History amlodipine 5 mg PO DAILY 09/23/19 09/23/19 History duloxetine 60 mg PO DAILY 09/23/19 09/23/19 History metoclopramide HCl 10 mg PO ACHS 09/23/19 09/23/19 History ropinirole 0 mg PO UD 09/23/19 09/23/19 History Past Med/Surg History Medical History Anxiety Gastritis (Acute) Hx of Crohn's disease Hypertension Migraine UTI (urinary tract infection) (Acute) Surgical History History of appendectomy History of delivery History of orthopedic surgery Family History Other Hypertension Social History Preferred Language: Ecuadorean Communication Ability: Effective Agency Legal Counsel Required: No Beliefs That Will Affect Care: None marital status: Current Living Situation: Family Current Living Situation Comment: daughter lives with patient current occupational status: unemployed Other Information That Helps Us Care for You: No Feels Safe at Home: Yes Safety Concerns: Feels Safe At This Time Smoking Status: Heavy tobacco smoker Tobacco Type: cigarettes ; Cigarettes Per Day: 40 ; Do You Dip or Chew Tobacco: No ; Second Hand Exposure: No ; Tobacco Cessation Education Requested by Patient: No Hx Alcohol Use: No Hx Substance Use: Yes substance use type: prescription drug Substance Use Type Other:: aprazolam Last Used Substance: Unknown Physical Exam Constitutional: well developed and well nourished ENMT: Nose: + foreign body in naris Respiratory: normal respiratory effort Cardiovascular: Rate/Rhythm: regular rate and regular rhythm Skin: Tattoos Results & Data Vital Signs (Past 12 Hours) Vital Signs Temp Pulse Resp BP BP Pulse Ox 09/25/19 15:10 37.2 C 66 12 172/105 H 09/25/19 14:58 36.4 C L 80 18 179/68 H 91 09/25/19 14:17 149/89 H 09/25/19 13:55 169/91 H 09/25/19 11:53 204/116 H 211/118 H 09/25/19 11:33 37.7 C H 88 18 193/111 H 92 09/25/19 06:37 36.5 C 70 18 172/114 H 92 09/25/19 05:51 176/110 H 09/25/19 03:40 143/83 H Code Status & VTE Plan VTE Prophylaxis Plan VTE Prophylaxis will be ordered: Yes
--- NOTE | 2019-09-25 15:47 | Pharmacy Report ---
Pharmacy Glycemic Sign Off Nt - Date of Service September 25, 2019 - Assessment & Plan ASSESSMENT: * Pharmacy was consulted by Dr Garcia on for glycemic control and to write orders per [facility] inpatient glycemic control protocol. * Patient has been receiving 0 units of insulin per day for adequate glycemic control * BSGs ranging 123-119 mg/dl * Regimen has only required minor adjustments over the past 48hrs to achieve this level of control * Patient is currently NPO- changes may be necessary as patient has diet ordered * Please see recommendations for outpatient antidiabetic regimen below. PLAN FOR INPATIENT GLYCEMIC CONTROL: No changes needed to current regimen. * Continue NovoLog per scale ACHS/Q6hrs while NPO * Goal range = 110 - 140 mg/dl * CF = 30 mg/dl/unit * CR = 1 unit for ever 12 g CHO consumed * A1c added to discharge instructions to be communicated to PCP. * Pharmacy is signing off of glycemic consult and will no longer be making adjustments to inpatient regimen. Please feel free to re-consult if needed. Thank you. DISCHARGE RECOMMENDATIONS: * A1c 5.7 % on 09/23/19, indicated pre-diabetes, would recommend lifestyle modification and follow-up with patient's PCP.
--- NOTE | 2019-09-25 15:53 | GI REPORT ---
Patient Name: Charelen Mathis Procedure Date: 09/25/2019 3:40 PM Date of : 1970 Admit Type: Inpatient Age: 49 Gender: Female Attending MD: Chandrakant Erickson MD Procedure: Upper GI endoscopy Providers: Chandrakant Erickson MD Referring MD: Lian Kolb Indications: Nausea with vomiting Medicines: Propofol total dose 200 mg IV, Lidocaine 80 mg IV Complications: No immediate complications. Estimated Blood Loss: Estimated blood loss: none. Procedure: Pre-Anesthesia Assessment: - Prior to the procedure, a History and Physical was performed, and patient medications, allergies and sensitivities were reviewed. The patient's tolerance of previous anesthesia was reviewed. - The risks and benefits of the procedure and the sedation options and risks were discussed with the patient. All questions were answered and informed consent was obtained. After obtaining informed consent, the endoscope was passed under direct vision. Throughout the procedure, the patient's blood pressure, pulse, and oxygen saturations were monitored continuously. The Endoscope was introduced through the mouth, and advanced to the second part of duodenum. The upper GI endoscopy was accomplished without difficulty. The patient tolerated the procedure fairly well. Findings: The Z-line was regular and was found 40 cm from the incisors. The examined esophagus was normal. The entire examined stomach was normal. A small hiatal hernia was present. The examined duodenum was normal. Impression: - Z-line regular, 40 cm from the incisors. - Normal esophagus. - Normal stomach. - Small hiatal hernia. - Normal examined duodenum. - No specimens collected. Recommendation: - [facility] for [facility] care. Chandrakant Erickson M.D. Chandrakant Erickson MD 09/25/2019 3:52:52 PM This report has been signed electronically. Note Initiated On: 09/25/2019 3:40 PM Number of Addenda: 0 I attest to the content of the Intraoperative Record and orders documented therein, exceptions below {[id number]}
--- NOTE | 2019-09-25 16:18 | Anesthesiology Progress Note ---
Date of Service September 25, 2019 Anesthesia Post Procedure Vital Signs Vital Signs: Temp Pulse Pulse Resp BP BP Pulse Ox 09/25/19 16:13 86 20 100/71 94 09/25/19 15:30 145/90 H 09/25/19 15:10 37.2 C 66 12 172/105 H 92 09/25/19 14:58 36.4 C L 80 18 179/68 H 91 09/25/19 14:17 149/89 H 09/25/19 13:55 169/91 H 09/25/19 11:53 204/116 H 211/118 H 09/25/19 11:33 37.7 C H 88 18 193/111 H 92 09/25/19 06:37 36.5 C 70 18 172/114 H 92 09/25/19 05:51 176/110 H 09/25/19 03:40 143/83 H 09/25/19 03:00 36.8 C 75 18 147/99 H 92 09/24/19 23:50 66 09/24/19 23:00 36.7 C 66 18 137/80 94 09/24/19 19:29 36.8 C 67 16 127/72 94 09/24/19 16:48 70 Pain Intensity Lower Abdomen: Pain Intensity: 2 Head: Pain Intensity: 4 Transfer of Care Handoff Completed per policy Notes Mental Status: alert / awake / arousable Patient Amnestic to Procedure: Yes Nausea / Vomiting: adequately controlled Pain: adequately controlled Airway Patency, RR, SpO2: stable & adequate BP & HR: stable & adequate Hydration State: stable & adequate Anesthetic Complications: no major complications apparent and Pt Satisfied with anesthetic care
--- NOTE | 2019-09-25 16:59 | Consultation Report ---
DATE OF CONSULTATION: 09/25/2019 GASTROINTESTINAL CONSULTATION NOTE REASON FOR EVALUATION: Nausea and vomiting. HISTORY OF PRESENT ILLNESS: The patient is a 49-year-old admitted with hypertensive crisis, altered mental status, nausea and vomiting. The patient has a prior history of high blood pressure and came in with a blood pressure of 210-240 systolic and 150s diastolic. She was treated with labetalol to help control her blood pressure, but during this time she was also vomiting and GI consultation has been requested. Of note, in the past, she has had gastric ulcers and she also had hepatitis C treated in the past with interferon, ribavirin and essentially cured. Her liver tests were normal, and a CAT scan of her abdomen did not show any sign of any acute process. There is a vague history of possible Crohn's disease, but there is no sign of that on her CAT scan. PAST MEDICAL HISTORY: Also remarkable for anxiety, hypertension, history of appendectomy. MEDICATIONS: Alprazolam, atenolol, lisinopril, pantoprazole, amlodipine, duloxetine, metoclopramide and ropinirole. ALLERGIES: CODEINE, TRAMADOL, MORPHINE. FAMILY HISTORY: Positive for hypertension. SOCIAL HISTORY: The patient is . She lives with her daughter. She is unemployed. Heavy smoker. No alcohol currently. REVIEW OF SYSTEMS: Positive for some confusion and thirst. Remainder is negative. PHYSICAL EXAMINATION: GENERAL: The patient is coughing a bit. She does have a nasal piercing on the right. She has multiple tattoos throughout her body. LUNGS: Showed some rhonchi. HEART: Showed a normal S1 and S2. Regular rate and rhythm. ABDOMEN: Shows and appendectomy scars. No mass or tenderness. EGD was performed in the endoscopy unit and other than a small hiatal hernia, there were no abnormalities found. IMPRESSION AND PLAN: The patient is having nausea and vomiting. This may be a manifestation of her severe hypertension. Her liver on exam, x-ray, and on laboratory is normal. There is no sign of any inflammatory bowel disease. At this time, I would order an ultrasound of the right upper quadrant to assess for gallstones, but I suspect that her vomiting is possibly related to her hypertension. We will continue to follow the patient.
[2019-09-26] MEDS: SODIUM CHLORIDE 0.9% 1000ML 1,000 ML IV SCH ×2 (03:00→13:14)
[2019-09-26] MEDS: PROMETHAZINE HCL 6.25 MG in SODIUM CHLORIDE 0.9% 50 ML IV PRN (04:48)
[2019-09-26] MEDS: ACETAMINOPHEN 325 MG TAB PO PRN (04:49)
[2019-09-26 06:24] LABS: Basophils # (auto) 0.01 K/uL (0-0.2); Basophils % (auto) 0.1 %; Hematocrit (blood only) 40.7 % (37-47); Hemoglobin 14.2 g/dL (12.0-16.0); Immature Granulocytes # (auto) 0.01 K/uL (0.00-0.02); Immature Granulocytes % (auto) 0.1 %; Lymphocytes # (auto) 1.11 K/uL (1.2-3.4); Lymphocytes % (auto) 13.1 %; Mean Corpuscular Hgb Conc 34.9 g/dL (32-36); Mean Corpuscular Volume 85.9 fL (80-100); Mean Platelet Volume 10.7 fL (7.4-10.4); Monocytes # (auto) 0.97 K/uL (0.11-0.59); Monocytes % (auto) 11.5 %; Neutrophils # (auto) 6.35 K/uL (1.4-6.5); Neutrophils % (auto) 75.2 %; Platelet Count 148 K/uL (130-400); RDW Coefficient of Variation 14.3 % (11.5-14.5); RDW Standard Deviation 44.7 fL (36.4-46.3); Red Blood Count 4.74 M/uL (4.2-5.4); White Blood Count 8.45 K/uL (4.8-10.8)
[2019-09-26 07:02] LABS: BUN Creatinine Ratio 14.6 (10-20); Calcium 8.8 mg/dl (8.5-10.1); Creatinine Clr Calc Pharmacy 96.1 ml/min; Est GFR (African American) 106.8; Est GFR (Non-African American) 92.1; Potassium 3.6 mmol/L (3.5-5.1)
[2019-09-26] MEDS: INSULIN ASPART 100 UNITS/ML 3 ML PEN SC SCH ×2 (08:08→12:39)
--- NOTE | 2019-09-26 08:46 | Ultrasound Report ---
US abdomen limited CLINICAL HISTORY: 49 years-old Female presenting with nausea and vomiting. TECHNIQUE: Real-time grayscale and limited color Doppler ultrasound imaging of the abdomen limited to the right upper quadrant was performed. COMPARISON: CT from 09/13/2019. FINDINGS: Pancreas: Visualized portions of the pancreatic head and body normal. Liver: Normal echogenicity and echotexture. The liver measures 16.1 cm in maximal sagittal dimension. No sonographic evidence of hepatic mass. Main portal vein patent with normal directional flow. Biliary: No intrahepatic biliary ductal dilatation. Common bile duct measures up to 3 mm in diameter. Gallbladder: Gallbladder sludge. No evidence of gallstones, gallbladder wall thickening, gallbladder distention, or pericholecystic fluid or inflammatory change. Sonographic Sarkar's sign negative. Right kidney: Normal in appearance without evidence of hydronephrosis. Ascites: None. Other: None. IMPRESSION: Gallbladder sludge. No cholelithiasis or biliary ductal dilatation. No cholecystitis. ACT 112: Negative or not required by law. Electronically signed by: Jean Beltran M.D. 09/26/2019 8:45 AM
[2019-09-26] MEDS: DULOXETINE HCL 60 MG CAP PO SCH (09:23)
[2019-09-26] MEDS: ATENOLOL 25 MG TABLET PO SCH (09:23)
[2019-09-26] MEDS: AMLODIPINE BESYLATE 5 MG TAB PO SCH (09:24)
[2019-09-26] MEDS: FAMOTIDINE 20 MG in SYRINGE 3 ML IV SCH (09:24)
[2019-09-26] MEDS: NICOTINE 14 MG/24 HR PATCH TD SCH (09:24)
[2019-09-26] MEDS: PANTOprazole 40 MG TAB PO SCH (09:25)
[2019-09-26] MEDS: ONDANSETRON INJ 2 MG/ML 2 ML VIAL IV PRN (13:29)
[2019-09-26 13:54] LABS: Marijuana Quant, GCMS Urine 289 ng/mL (<5)
--- NOTE | 2019-09-26 16:56 | Discharge Summary ---
Date of Service September 26, 2019 Admission HPI Per Admitting Provider Charleen Mathis is a 49 y/o female with past medical hx of Hep C, Nausea/Vomiting, stomach ulcers, HTN, Anxiety, current smoker who presented to [facility] via EMS for AMS. Daughter is with patient who assists with history. Charleen notes that she has had intractable N/V for the past 3-4 days with poor PO intake. Daughter notes that this nausea/vomiting is acute on chronic, possibly worse than previous episodes. She takes Zofran at home but this hasn't resolved her symptoms. She denies any bloody emesis. She also has had sharp LLQ abdominal pain that has been intermittent. Daughter notes that patient has been unable to find position of comfort and was taking numerous baths over the past 24 hours, perhaps 5 baths overnight. Daughter states patient became confused after getting out of bath tub while getting dressed and was attempting to put her shirt on her legs. This was new for Charleen as daughter notes no prior similar symptoms in the past of confusion. This prompted her daughter to call EMS. Charleen denies any shortness of breath, chest pain, black/bloody stools. She hasn't been able to take her home meds because of vomiting. She does endorse subjective fever and chills. Also she has had carpo and pedal spasms causing pain. Also notes symptoms of polyuria with being 15 times over the course of day and polydipsia. Daughter notes Charleen enjoys drinking sweet tea which she adds sugar too. Denies any previous history of DM. Charleen denies dysuria. She notes she resides in [place] and is here visiting. Daughter states she had stomach bug with nausea and vomiting which has resolved. Charleen denies any diarrhea or change in bowel habits. She states she has tried to stay hydrated over course of illness by drinking Propel bottled water. She states hx of Hep C, denies prior IV drug use or hx of alcohol intake, she does endorse Marjiuana use. There was a questionable report of Crohn's disease but Daughter provides history that this was more of a working diagnosis as she had prior EGD which showed non-bleeding stomach ulcers which she was treated with Prilosec and Carafate. Charleen has never had a colonoscopy or needed to use steroids or follow with a GI doctor. She states she follows with a doctor for her Hep C but cannot provide specialty of physician or name. She notes hx of Appendectomy and C- section, still has her gallbladder. In the ED, she had a Head CT and Abdominal CT which were both unremarkable. She has had HTN Emergency with BPs of 210s-240s/150s with suspected end organ damage by way of confusion. She was treated with Labetalol 10mg IV x 3 rounds with BP still elevated in 200s-210s/140s. She received 1L NSS, for pain she received Dilaudid 1mg IV and another dose of 0.5mg IV, she received Zofran 4mg IV and Phenergan 12.5mg IV for nausea/vomiting, she also received Ativan 0.5mg IV. Lab work was remarkable for WBC leukocytosis of 13.46, elevated Hgb/Hct 13.9/50.4, hyponatremia 127, decreased bicarb of 19, glucose of 222 in setting of poor food intake and a AG of 13. Principal Diagnosis Hypertensive Emergency Discharge Exam Constitutional WD/WN, vitals as above Eyes PERRL, conjunctivae normal, anicteric sclerae Respiratory normal respiratory effort, lungs clear to auscultation Cardiovascular Rate/Rhythm: regular rate and regular rhythm Heart Sounds: normal S1 and normal S2; no gallop, no murmur and no cardiac rub Gastrointestinal (Abdomen) Percussion/Palpation: abdomen soft; abdomen nontender, no guarding and no hepatosplenomegaly Discharge Data Allergies Allergy/AdvReac Type Severity Reaction Status Date / Time codeine Allergy Unknown GI SYMPTOMS Verified 09/25/19 15:07 tramadol Allergy Unknown GI SYMPTOMS Verified 09/25/19 15:07 morphine AdvReac Unknown N/V Verified 09/25/19 15:07 hydromorphone [From Dilaudid] AdvReac Nausea Verified 09/25/19 15:07 Consultations 09/23/19 15:46 ED Decision to Admit Stat 09/23/19 19:13 Consult Case Management - Discharge Planning Routine 09/24/19 17:12 Consult Gastroenterology Routine Procedures Performed Operation Date: 09/25/19 17:45 Actual Procedures p Esophagogastroduodenoscopy - Chandrakant Erickson Ordered Studies 09/23/19 13:38 CT head/brain wo con Stat 09/23/19 14:31 CT abd pelvis IV con only Stat 09/26/19 US abdomen limited Routine Hospital Course (1) Hypertensive emergency: Charleen Mathis is a 49 y/o female with past medical hx of Hep C, Nausea/Vomiting, stomach ulcers, HTN, Anxiety, current smoker who presented to [facility] via EMS for AMS and was admitted for HTN Emergency, Hyponatremia, and Intractable Nausea vomiting. Hypertensive Emergency with hypertensive encephalopathy: - On presentation HTN Emergency with BPs of 210s-240s/150s with suspected end organ damage by way of confusion. - Elevation of BP most likely multifactorial from unable to tolerate PO BP meds with hx of HTN, loss of fluids from vomiting and urinary frequency causing hemodynamic compensation - Head CT was negative to ensure there was no Brain bleed. - Blood pressure improved - restarted home regimen Intractable Vomiting: - No signs of current GI bleed; no blood streaking in vomitus; - EGD negative for ulcers; did demonstrate a small hiatal hernia - Received IVF. Diet advanced - tolerated. Altered Mental Status: - Possibly secondary to Hypertensive encephalopathy with dehydration and ? marijuana use - Resolved the next day Code: Full Total Time Total Time Spent Total Time Spent (In Minutes): 30 Discharge Plan Discharge Items Patient Disposition: Home - Self-Care Reason For Visit: NAUSEA,VOMITING Discharge Diagnosis: nausea, vomiting Activity: Per Instructions section Non-emergency contact: Primary Care Provider Call non-emergency contact if: you have any medication questions and your symptoms worsen Follow-up/Referrals: PCP,NO [Primary Care Provider] - Diet: Regular Addtl Attending Provider Instructions: You were seen and evaluated for continued abdominal pain and discomfort; during this time, you were evaluated with a scan of your abdomen that did not demonstrate any concerning findings within your abdomen. Additionally, you had a camera that examined from your mouth through your stomach and into your small intestine that did not demonstrate anything concerning for your continued nausea and vomiting. Now that you are considerably improved from before, you are being discharged. Pending Studies at Discharge: No Stand-Alone Forms: Call Back Authorization, My [facility], Smoking Cessation Medications and DC Order Prescriptions: New ondansetron HCl [Zofran] 8 mg tablet 8 mg PO Q8H PRN (Reason: nausea and vomiting) 3 Days Qty: 10 RF: 0 Continued amlodipine 5 mg tablet 5 mg PO DAILY RF: 0 ropinirole 0.25 mg Tablet 0 mg PO UD RF: 0 metoclopramide HCl 10 mg tablet 10 mg PO ACHS RF: 0 duloxetine 60 mg capsule,delayed release(DR/EC) 60 mg PO DAILY RF: 0 alprazolam 1 mg Tablet 1 mg PO TID PRN (Reason: Anxiety) RF: 0 lisinopril 20 mg Tablet 20 mg PO DAILY RF: 0 atenolol 25 mg Tablet 25 mg PO DAILY RF: 0 pantoprazole 40 mg Tablet,Delayed Release (Dr/Ec) 40 mg PO DAILY RF: 0 Discharge Orders: Discharge Order (Routine); Ordered 09/26/19 Ordered By: Martin Lyons Admission Data Admit Date/Time: 09/23/19 17:51 Attending Provider: Lian Kolb Admit Provider: Julio Garcia Primary Care Provider: PCP,GARDENIA Other Providers: Devi Khoury ; Chandrakant Erickson Other Interventions: Discharge Summary Assessment (RN) Last Done: 09/26/19 16:45 DC Date/Time DO NOT enter until pt leaves facility: 09/26/19 17:21 Supervising Physician Co-Signing Physician Notes Resident Physician Supervision Note: I independently interviewed and examined the patient and verified the alcantar history and physical, reviewed labs and image studies, discussed the case with the resident Dr. Lyons and agree with the findings and care plan. Resident Activity Tracking Resident Involvement: Resident Care Provided Care Provided: Adult Hospital Medicine
[2019-09-26] MEDS ORDERED: FAMOTIDINE 20 MG TAB PO SCH (21:00)
== END 2019-09-26 17:21 | disposition home or self-care (01) | DRG 305 ==
LOC: ED 13:32 → 2E 17:51 → SUATTDRO 17:51 → INTOOBSV 17:51 → 2E 18:28 → 2W 09-24 11:53

== ENCOUNTER 2020-07-19 01:48 | Inpatient (IN) ==
[2020-07-19] MEDS ORDERED: diphenhydrAMINE 50 MG/ML VIAL IV STA (02:02)
[2020-07-19] MEDS ORDERED: PROCHLORPERAZINE 2 ML IV ONE (02:02)
[2020-07-19] MEDS: SODIUM CHLORIDE 0.9% 1000ML 1,000 ML IV SCH ×4 (02:09→15:56)
[2020-07-19 02:12] LABS: Basophils # (auto) 0.03 K/uL (0-0.2); Basophils % (auto) 0.1 %; Eosinophils # (auto) 0.02 K/uL (0-0.5); Eosinophils % (auto) 0.1 %; Hematocrit (blood only) 52.1 % (37-47); Hemoglobin 18.6 g/dL (12.0-16.0); Immature Granulocytes # (auto) 0.07 K/uL (0.00-0.02); Immature Granulocytes % (auto) 0.3 %; Lymphocytes # (auto) 2.13 K/uL (1.2-3.4); Lymphocytes % (auto) 10.2 %; Mean Corpuscular Hemoglobin 29.9 pg (25-34); Mean Corpuscular Hgb Conc 35.7 g/dL (32-36); Mean Corpuscular Volume 83.6 fL (80-100); Mean Platelet Volume 10.8 fL (7.4-10.4); Monocytes # (auto) 1.66 K/uL (0.11-0.59); Monocytes % (auto) 7.9 %; Neutrophils # (auto) 17.06 K/uL (1.4-6.5); Neutrophils % (auto) 81.4 %; Platelet Count 349 K/uL (130-400); RDW Coefficient of Variation 14.3 % (11.5-14.5); RDW Standard Deviation 43.3 fL (36.4-46.3); Red Blood Count 6.23 M/uL (4.2-5.4); White Blood Count 20.97 K/uL (4.8-10.8)
[2020-07-19 02:26] LABS: INR 1.2 (0.9-1.1); Partial Thromboplastin Ratio 1.2; Partial Thromboplastin Time 33.7 Seconds (21.0-31.0); Prothrombin Time 12.3 Seconds (9.0-12.0)
--- NOTE | 2020-07-19 03:03 | Emergency Department Note ---
History of Present Illness General Chief complaint: Abdominal Pain Stated complaint: ABDOMINAL PAIN Time Seen by Provider: 07/19/20 01:54 History of Present Illness Maximum Pain Intensity: 7 This is a 50-year-old female presenting to the emergency department for evaluation of abdominal cramping, nausea, and vomiting for the past 5 to 6 days. The patient does not report having fever, chest pain, chest tightness, or shortness of breath. Her abdominal pain is diffuse and rated a 7/10. The patient does arrive via [facility] for [facility] complaints. She does have a past history of hepatitis, marijuana use, and anxiety. She states that at one point she was being evaluated for Crohn's disease, however she does not believe that she has this diagnosis. She has not been following with her primary care physician or gastroenterology for several years. She previously was part of the [employer] system, however they revoked her controlled substance medication use agreement and she no longer follows with them. She has had multiple symptoms like this in the past. She states that she did take Protonix without relief of symptoms at home. She did have Toradol and Zofran by EMS. Home Medications Medication Instructions Recorded Confirmed Type atenolol 25 mg PO DAILY 05/15/18 07/19/20 History pantoprazole 40 mg PO DAILY 05/15/18 07/19/20 History Allergies Allergy/AdvReac Type Severity Reaction Status Date / Time codeine Allergy Unknown GI SYMPTOMS Verified 07/19/20 03:03 tramadol Allergy Unknown GI SYMPTOMS Verified 07/19/20 03:03 morphine AdvReac Unknown N/V Verified 07/19/20 03:03 hydromorphone [From Dilaudid] AdvReac Nausea Verified 07/19/20 03:03 Past Med/Surg History Medical History (Updated 07/19/20 @ 22:32 by Andrei Hernandes PA-C) Anxiety Gastritis Hx of Crohn's disease Hypertension Migraine UTI (urinary tract infection) Surgical History History of appendectomy History of delivery History of orthopedic surgery Family History Other Hypertension Social History Smoking Status: Current every day smoker Cigarettes Per Day: 40; Second Hand Exposure: No; Hx Alcohol Use: No Hx Substance Use: Yes Last Used Substance: Unknown Substance Use Type Other:: aprazolam Preferred Language: Argentine Communication Ability: Effective 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 Beliefs That Will Affect Care: None marital status: Current Living Situation: Family Current Living Situation Comment: daughter lives with patient current occupational status: unemployed Feels Safe at Home: Yes Assistive Devices: None Review of Systems A total of 10 systems reviewed and were otherwise negative Physical Exam Vital Signs Vital Signs - 24 hr 07/19/20 01:50 07/19/20 02:34 07/19/20 03:24 Temperature 37.1 C Temperature Source Oral Pulse Rate 119 H Pulse Rate [Apical] 92 H 102 H Respiratory Rate 20 18 16 Respiratory Effort / Characteristics Non-Labored Non-Labored Non-Labored Spontaneous Respiratory Depth Normal Normal Normal Respiratory Pattern Regular Blood Pressure 185/133 H Blood Pressure [Right Arm] 164/108 H 157/111 H Blood Pressure Mean 150 Blood Pressure Mean [Right Arm] 126 126 Blood Pressure Position [Right Arm] Lying Pulse Oximetry 96 97 94 Oxygen Delivery Method Room Air Room Air Room Air Sepsis Recent Fever Within 48 Hours No Sepsis New/Unexplained Change in Mental Status N/A Sepsis Action Taken by Nursing No Action Required 07/19/20 05:26 Temperature Temperature Source Pulse Rate Pulse Rate [Apical] 108 H Respiratory Rate 18 Respiratory Effort / Characteristics Non-Labored Spontaneous Respiratory Depth Normal Respiratory Pattern Regular Blood Pressure Blood Pressure [Right Arm] 187/129 H Blood Pressure Mean Blood Pressure Mean [Right Arm] 148 Blood Pressure Position [Right Arm] Lying Pulse Oximetry 92 Oxygen Delivery Method Room Air Sepsis Recent Fever Within 48 Hours Sepsis New/Unexplained Change in Mental Status Sepsis Action Taken by Nursing VITALS: Vitals are noted on the nurse's note and reviewed by myself. Vital signs stable. GENERAL: Well-developed, well-nourished, white female who is tearful and appears uncomfortable on exam HEAD: Normocephalic atraumatic. NECK: Supple without nuchal rigidity. No lymphadenopathy. No thyromegaly. Cervical spine is nontender. HEART: Regular rate and rhythm without murmurs gallops or rubs. LUNGS: Clear to auscultation bilaterally without wheezes, rales or rhonchi. No retractions or accessory muscle use. ABDOMEN: Positive normal bowel sounds x 4. Soft with generalized tenderness throughout. No distinct point tenderness. Firm pressure while auscultating the abdomen does not elicit pain or tenderness response from patient. MUSCULOSKELETAL: No muscle atrophy, erythema, or edema noted. Full range of motion in all extremities. NEURO: Patient was alert and oriented to person place and time. CN II through XII grossly intact. SKIN: The skin was without rashes, erythema, edema, or bruising. Capillary refill less than 2 seconds. Course Administered Medications Acetaminophen (Acetaminophen 325 Mg Tab) 650 mg PO Q4H PRN PRN Reason: Pain or Fever Stop: 08/18/20 06:31 Last Admin: 07/19/20 20:20 Dose: 650 mg Documented by: [id number] Atenolol (Atenolol 25 Mg Tablet) 25 mg PO DAILY [facility] Stop: 08/18/20 08:59 Last Admin: 07/19/20 08:21 Dose: 25 mg Documented by: [id number] Sodium Chloride (Nss 1000ml) 1,000 mls @ 120 mls/hr IV .Q8H20M [facility] Stop: 07/20/20 04:03 Last Admin: 07/19/20 15:56 Dose: 120 mls/hr Documented by: [id number] Infusion: 07/19/20 15:11 Dose: 120 mls/hr Documented by: [id number] Infusion: 07/19/20 09:45 Dose: 120 mls/hr Documented by: [id number] Admin: 07/19/20 08:21 Dose: 250 mls/hr Documented by: [id number] Lorazepam (Ativan) 0.25 mg in 0.5 mls @ 0.5 mls/min IV Q6H PRN PRN Reason: Anxiety Stop: 08/18/20 06:31 Last Admin: 07/19/20 17:44 Dose: 0.5 mls/min Documented by: [id number] Nicotine (Nicotine 21 Mg/24 Hr Tdsy) 21 mg TD QAM [facility] Stop: 08/18/20 11:11 Last Admin: 07/19/20 12:30 Dose: 21 mg Documented by: [id number] Ondansetron HCl (Ondansetron Inj 2 Mg/Ml 2 Ml Vial) 4 mg IV Q6H PRN PRN Reason: Nausea Stop: 08/18/20 06:31 Last Admin: 07/19/20 08:20 Dose: 4 mg Documented by: [id number] Pantoprazole Sodium (Pantoprazole 40 Mg Tab) 40 mg PO DAILY TAM Stop: 08/18/20 08:59 Last Admin: 07/19/20 08:21 Dose: 40 mg Documented by: [id number] Discontinued Medications Diphenhydramine HCl (Diphenhydramine 50 Mg/Ml Vial) 50 mg IV NOW STA Stop: 07/19/20 02:03 Last Admin: 07/19/20 02:10 Dose: 50 mg Documented by: [id number] Sodium Chloride (Nss 1000ml) 1,000 mls @ 999 mls/hr IV .Q1H1M TAM Stop: 07/19/20 04:03 Last Infusion: 07/19/20 05:26 Dose: 0 mls/hr Documented by: [id number] Admin: 07/19/20 03:51 Dose: 999 mls/hr Documented by: [id number] Infusion: 07/19/20 03:14 Dose: 0 mls/hr Documented by: [id number] Admin: 07/19/20 02:09 Dose: 999 mls/hr Documented by: [id number] Prochlorperazine (Compazine) 2 mls @ 1 mls/min IV ONE ONE Stop: 07/19/20 02:03 Last Admin: 07/19/20 02:10 Dose: 1 mls/min Documented by: [id number] Promethazine HCl (Phenergan) 12.5 mg in 50.5 mls @ 202 mls/hr IV NOW STA Stop: 07/19/20 03:59 Last Infusion: 07/19/20 04:07 Dose: 0 mls/hr Documented by: [id number] Admin: 07/19/20 03:51 Dose: 202 mls/hr Documented by: [id number] Potassium Chloride (K Raghu / Wtr) 10 meq in 100 mls @ 100 mls/hr IV Q1H TAM Stop: 07/19/20 11:59 Last Infusion: 07/19/20 11:56 Dose: 0 mls/hr Documented by: [id number] Infusion: 07/19/20 10:42 Dose: 75 mls/hr Documented by: [id number] Admin: 07/19/20 10:30 Dose: 100 mls/hr Documented by: [id number] Infusion: 07/19/20 10:26 Dose: 0 mls/hr Documented by: [id number] Admin: 07/19/20 09:26 Dose: 100 mls/hr Documented by: [id number] Potassium Chloride (Potassium Chloride Crtab 20 Meq Tabcr) 40 meq PO NOW STA Stop: 07/19/20 05:53 Last Admin: 07/19/20 06:08 Dose: Not Given Documented by: [id number] Medical Decision Making Differential Diagnosis Differential diagnosis: Etiologies such as biliary colic, cholecystitis, hepatitis, pancreatitis, cardiac disease, pancreatitis, gastritis, peptic ulcer disease, appendicitis, cystitis, diverticulitis, mesenteric ischemia, inflammatory bowel disease, ileus, bowel obstruction, testicular/adnexal torsion, aortic pathology, shingles, as well as others were considered Laboratory Data Result diagrams: 07/19/20 01:56 07/19/20 15:14 Lab Results 07/19/20 07/19/20 07/19/20 Range/Units 01:56 01:56 01:56 WBC 20.97 H (4.8-10.8) K/uL RBC 6.23 H (4.2-5.4) M/uL Hgb 18.6 H (12.0-16.0) g/dL Hct 52.1 H (37-47) % MCV 83.6 (80-100) fL MCH 29.9 (25-34) pg MCHC 35.7 (32-36) g/dL RDW Std Deviation 43.3 (36.4-46.3) fL RDW Coeff of Bo 14.3 (11.5-14.5) % Plt Count 349 (130-400) K/uL MPV 10.8 H (7.4-10.4) fL Immature Gran % (Auto) 0.3 % Neut % (Auto) 81.4 % Lymph % (Auto) 10.2 % Wood % (Auto) 7.9 % Eos % (Auto) 0.1 % Baso % (Auto) 0.1 % Neut # (Auto) 17.06 H (1.4-6.5) K/uL Lymph # (Auto) 2.13 (1.2-3.4) K/uL Wood # (Auto) 1.66 H (0.11-0.59) K/uL Eos # (Auto) 0.02 (0-0.5) K/uL Baso # (Auto) 0.03 (0-0.2) K/uL Immature Gran # (Auto) 0.07 H (0.00-0.02) K/uL ESR 10 (0-21) mm/hr PT (9.0-12.0) Seconds INR (0.9-1.1) APTT (21.0-31.0) Seconds PTT Ratio Sodium 128 L (136-145) mmol/L Potassium 3.2 L (3.5-5.1) mmol/L Chloride 94 L (98-107) mmol/L Carbon Dioxide 23 (21-32) mmol/L Anion Gap 11.0 (3-11) BUN 55 H (7-18) mg/dl Creatinine 2.60 H (0.6-1.2) mg/dl Est Cr Clr Drug Dosing 27.8 ml/min Est GFR ( Amer) 24.0 Est GFR (Non-Af Amer) 20.7 BUN/Creatinine Ratio 21.3 H (10-20) Glucose 143 H (70-99) mg/dl Calcium 9.5 (8.5-10.1) mg/dl Phosphorus (2.5-4.9) mg/dl Magnesium 2.0 (1.8-2.4) mg/dl Total Bilirubin 1.4 H (0.2-1) mg/dl AST 19 (15-37) U/L ALT 22 (12-78) U/L Alkaline Phosphatase 54 (45-117) U/L C-Reactive Protein 0.71 H (0-0.29) mg/dl Total Protein 8.5 H (6.4-8.2) gm/dl Albumin 4.2 (3.4-5.0) gm/dl Globulin 4.3 H (2.5-4.0) gm/dl Albumin/Globulin Ratio 1.0 (0.9-2) Lipase 53 L (73-393) U/L TSH 2.040 (0.300-4.500) uIu/ml Ethyl Alcohol mg/dL (0-3) mg/dl 07/19/20 07/19/20 07/19/20 Range/Units 01:56 02:38 02:49 WBC (4.8-10.8) K/uL RBC (4.2-5.4) M/uL Hgb (12.0-16.0) g/dL Hct (37-47) % MCV (80-100) fL MCH (25-34) pg MCHC (32-36) g/dL RDW Std Deviation (36.4-46.3) fL RDW Coeff of Bo (11.5-14.5) % Plt Count (130-400) K/uL MPV (7.4-10.4) fL Immature Gran % (Auto) % Neut % (Auto) % Lymph % (Auto) % Wood % (Auto) % Eos % (Auto) % Baso % (Auto) % Neut # (Auto) (1.4-6.5) K/uL Lymph # (Auto) (1.2-3.4) K/uL Wood # (Auto) (0.11-0.59) K/uL Eos # (Auto) (0-0.5) K/uL Baso # (Auto) (0-0.2) K/uL Immature Gran # (Auto) (0.00-0.02) K/uL ESR (0-21) mm/hr PT 12.3 H (9.0-12.0) Seconds INR 1.2 H (0.9-1.1) APTT 33.7 H (21.0-31.0) Seconds PTT Ratio 1.2 Sodium (136-145) mmol/L Potassium (3.5-5.1) mmol/L Chloride (98-107) mmol/L Carbon Dioxide (21-32) mmol/L Anion Gap (3-11) BUN (7-18) mg/dl Creatinine (0.6-1.2) mg/dl Est Cr Clr Drug Dosing ml/min Est GFR ( Amer) Est GFR (Non-Af Amer) BUN/Creatinine Ratio (10-20) Glucose (70-99) mg/dl Calcium (8.5-10.1) mg/dl Phosphorus 4.3 (2.5-4.9) mg/dl Magnesium (1.8-2.4) mg/dl Total Bilirubin (0.2-1) mg/dl AST (15-37) U/L ALT (12-78) U/L Alkaline Phosphatase (45-117) U/L C-Reactive Protein (0-0.29) mg/dl Total Protein (6.4-8.2) gm/dl Albumin (3.4-5.0) gm/dl Globulin (2.5-4.0) gm/dl Albumin/Globulin Ratio (0.9-2) Lipase (73-393) U/L TSH (0.300-4.500) uIu/ml Ethyl Alcohol mg/dL < 3.0 (0-3) mg/dl Imaging Data Radiologist's Impression: [facility], [id number] CT Scan Report Patient: EDU SOLORIOAdmit Date: 07/19/20MR#: [id number]: [address] RDAcct ID:[id number]: [address]: 1970[facility] Zip[facility] [place] [id number]: 50Location: 2NSex: FRoom/Bed: [id number] Phy: Maurizio Bonilla M.D.Diagnosis: INTRACTABLE NAUSEA AND VOMITINGPri Phy: PCP,NOService Date: 07/19/20Fam Phy:Interpreting Phy: Guero Garcia [facility] Phy: Maurizio Bonilla M.D. Ordering Phy: Andrei Hernandes PA-C cc: ~ CT SCAN OF THE ABDOMEN AND PELVIS WITHOUT CONTRAST CLINICAL HISTORY: Abdominal pain, nausea, vomiting. COMPARISON STUDY: October 2019 TECHNIQUE: CT scan of the abdomen and pelvis was performed from the lung bases to the proximal femurs. Images are reviewed in the axial, sagittal, and coronal planes. IV contrast was not administered for this examination. A dose lowering technique was utilized adhering to the principles of ALARA. CT DOSE: 608.53 mGy.cm FINDINGS: Lower chest: The heart is normal in size and configuration, without pericardial effusion. The lung bases and pleural spaces are clear. Liver: The unenhanced liver is normal in size, contour, and attenuation. There is no intrahepatic biliary ductal dilatation. Gallbladder: There is subtle hyperdense layering bile. Calculi cannot be excluded Spleen: Normal in size and attenuation. Pancreas: Unremarkable. Adrenal glands: Unremarkable. Kidneys: No renal, ureteral, or bladder calculi are visualized. There is a prominent left renal pelvis, unchanged from the preceding study. Bowel: There are no transition zones to indicate bowel obstruction. There is no evidence of acute diverticulitis. By history the appendix is surgically absent. Peritoneum: There is no intraperitoneal free air or abdominal ascites. Vasculature: The abdominal aorta is normal in course and caliber. Adenopathy: None. Pelvic viscera: The bladder, and pelvic viscera are unremarkable. Skeletal structures: No destructive osseous lesions are seen. IMPRESSION: 1. No evidence of bowel obstruction. No evidence of free air 2. No evidence of acute diverticulitis 3. Surgically absent appendix 4. No renal, ureteral, or bladder calculi identified MDM Narrative Physical exam and history were performed. Nursing notes, EMR, and Medication List were personally reviewed. Patient appears to have nausea and vomiting symptoms bring her to the ER. She is additionally complaining of diffuse abdominal discomfort, although this exam is concerning for malingering. She does arrive from out of the [facility] with multiple complaints. IV access was established and labs were obtained. The esperanza elliott has had Zofran prehospital and was given IV Benadryl, IV Compazine, and 2 L IV saline. She was sent to CT scan for further imaging of her abdomen. The patient's blood work is as above and was reviewed. She does have an elevated white blood cell count of nearly 21,000. She seems hemoconcentrated at 18.6. INR is 1.2. Her creatinine is elevated at 2.6, and her baseline appears to be roughly 0.8. Lipase and transaminases are not diagnostic. Urine is without evidence of UTI. Drug abuse screen is positive for marijuana. CT scan was reviewed by myself and radiology showing no acute process. On reevaluation the patient continued to complain of nausea. She was given Phenergan, without reported relief of symptoms. Overall the patient does not appear well for discharge home. 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 The case was discussed with the on-call hospitalist team who agreed to evaluate the patient here in the ER. Please see their dictation for further patient course, plan, and disposition. The chart was completed utilizing [employer] Voice [employer]ognition Software. Grammatical errors, random word insertions, pronoun errors, and incomplete sentences are an occasional consequence of this system due to software limitations, ambient noise, and hardware issues. Any formal questions or concerns about the content, text, or information contained within the body of this dictation should be directly addressed to the provider for clarification. . Impression & Plan Intractable vomiting, Marijuana smoker, Acute kidney injury, Dehydration Discharge Plan Visit Data Chief Complaint: Abdominal Pain Stated Complaint: ABDOMINAL PAIN ED Provider: Dinah Denton ED Midlevel Provider: Andrei Hernandes Discharge Problem: Intractable vomiting, Marijuana smoker, Acute kidney injury, Dehydration Patient Disposition: Admitted As Inpatient Discharge Instructions Interventions: ED Discharge Assessment Last Done: 07/19/20 06:01
[2020-07-19 03:05] LABS: Albumin Level 4.2 gm/dl (3.4-5.0); BUN Creatinine Ratio 21.3 (10-20); Bilirubin,Total 1.4 mg/dl (0.2-1); C Reactive Protein 0.71 mg/dl (0-0.29); Calcium 9.5 mg/dl (8.5-10.1); Creatinine Clr Calc Pharmacy 27.8 ml/min; Est GFR (Non-African American) 20.7; Globulin 4.3 gm/dl (2.5-4.0); Thyroid Stimulating Hormone 2.04 uIu/ml (0.300-4.500); Total Protein 8.5 gm/dl (6.4-8.2)
[2020-07-19 03:14] LABS: Potassium 3.2 mmol/L (3.5-5.1)
[2020-07-19] MEDS ORDERED: PROMETHAZINE 12.5 MG/50.5 ML BAG IV STA (03:45)
--- NOTE | 2020-07-19 05:32 | History & Physical Report ---
Date of Service July 19, 2020 Assessment & Plan (1) Intractable vomiting: Intractable vomiting- Completely normal CT of abdomen and pelvis. Normal EGD on 09/25/2019. Placed on Zofran 4 mg IV every 6 hours as needed Phenergan 25 mg IV every 6 hours as needed Benadryl 25 mg IV every 4 hours as needed Lorazepam 0.25 mg IV every 6 hours as needed Urine drug screen pending Pantoprazole 40 mg p.o. daily Present on Admission?: Yes (2) Acute kidney injury: Acute kidney injury secondary to dehydration- Creatinine 2.6 upon admission, sodium 128, potassium 3.2. Given 1 L normal saline in the ED Placed on NSS at 250 mils per hour x3 L. Potassium chloride 40 mEq p.o. now Repeat laboratories in a.m. Present on Admission?: Yes (3) Dehydration: (4) Marijuana smoker: Urine drug screen pending Present on Admission?: Yes (5) Hepatitis C: Relatively normal LFTs Present on Admission?: Yes (6) Current smoker: NicoDerm patch Present on Admission?: Yes (7) Hypertension: Previously on atenolol 50 mg daily. Question whether she took her medications recently. Present on Admission?: Yes History of Present Illness Chief Complaint: The patient reports to the emergency department with 3 days of nausea and vomiting without diarrhea or abdominal pain. Primary Care Provider: NO PCP The patient is a 50-year-old female with a past medical history including marijuana abuse, hepatitis C, tobacco abuse, hypophosphatemia, gastritis, hypertension, anxiety, atypical migraine, previous admissions for intractable nausea vomiting and a normal EGD on 09/25/2019. Patient presents with symptoms of nausea and vomiting x3 days. She denies any questionable food intake, recent travel or sick exposures. She reports she smoked a few cigarettes yesterday, and reports that she has not had marijuana use recently. Allergies Allergy/AdvReac Type Severity Reaction Status Date / Time codeine Allergy Unknown GI SYMPTOMS Verified 07/19/20 03:03 tramadol Allergy Unknown GI SYMPTOMS Verified 07/19/20 03:03 morphine AdvReac Unknown N/V Verified 07/19/20 03:03 hydromorphone [From Dilaudid] AdvReac Nausea Verified 07/19/20 03:03 Home Medications Medication Instructions Recorded Confirmed Type atenolol 25 mg PO DAILY 05/15/18 07/19/20 History pantoprazole 40 mg PO DAILY 05/15/18 07/19/20 History Past Med/Surg History Medical History (Updated 07/19/20 @ 05:50 by Maurizio Bonilla MD) Anxiety Gastritis Hx of Crohn's disease Hypertension Migraine UTI (urinary tract infection) Surgical History History of appendectomy History of delivery History of orthopedic surgery Family History Other Hypertension Social History Smoking Status: Current every day smoker Cigarettes Per Day: 40; Second Hand Exposure: No; Hx Alcohol Use: No Hx Substance Use: Yes Last Used Substance: Unknown Substance Use Type Other:: aprazolam Preferred Language: Pry[place]in[place] Communication Ability: Effective 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 Beliefs That Will Affect Care: None marital status: Current Living Situation: Family Current Living Situation Comment: daughter lives with patient current occupational status: unemployed Feels Safe at Home: Yes Assistive Devices: None Review of Systems Review of Systems: The patient denies chest pain, palpitations, shortness of breath, dyspnea on exertion, cough, lower extremity swelling, sore throat, fevers, chills, sweats, diarrhea , constipation, abdominal pain, pelvic pain, blood in urine or stool, dysuria, urinary frequency or urgency, lightheadedness, dizziness, headache, memory loss, loss of consciousness, rash, abnormal bruising or bleeding, imbalance, focal or generalized weakness, numbness or tingling in arms or legs, generalized arthralgias or myalgias, back or neck pain, or night sweats. The review of systems is otherwise negative other than for that already noted above, and at least 10 systems have been reviewed. Physical Exam Physical Exam: The patient is awake, alert and oriented 3, well developed and well nourished, normocephalic and atraumatic, lying in bed and in no acute distress. HEENT--PERRL, EOMI, mucous membranes and oropharynx dry. Neck--supple. No JVD. No bruits. Thyroid normal, trachea midline, no adenopathy. Heart--normal S1 and S2. No murmurs, rubs or gallops. Lungs--clear bilaterally, no respiratory distress, no accessory muscle use. Abdomen--normal bowel sounds and soft. Nontender. Nondistended, no hernias or masses, no organomegaly. Extremities--no cyanosis or clubbing. No edema. Dermatologic--normal skin turgor, normal color, no abnormal lymph nodes, no rash. Neurologic--cranial nerves II through XII grossly intact. Rheumatologic--normal range of motion. Psychiatric--normal affect. Results & Data Results & Data ([facility]) Vital Signs (Past 12 Hours) Vital Signs Temp Pulse Pulse Resp BP BP Pulse Ox 07/19/20 05:26 108 H 18 187/129 H 92 07/19/20 03:24 102 H 16 157/111 H 94 07/19/20 02:34 92 H 18 164/108 H 97 07/19/20 01:50 98.8 F 119 H 20 185/133 H 96 Laboratory Results Laboratory Results WBC 20.97 K/uL (4.8-10.8) H 07/19/20 01:56 RBC 6.23 M/uL (4.2-5.4) H 07/19/20 01:56 Hgb 18.6 g/dL (12.0-16.0) H 07/19/20 01:56 Hct 52.1 % (37-47) H 07/19/20 01:56 MCV 83.6 fL (80-100) 07/19/20 01:56 MCH 29.9 pg (25-34) 07/19/20 01:56 MCHC 35.7 g/dL (32-36) 07/19/20 01:56 RDW Std Deviation 43.3 fL (36.4-46.3) 07/19/20 01:56 RDW Coeff of Bo 14.3 % (11.5-14.5) 07/19/20 01:56 Plt Count 349 K/uL (130-400) 07/19/20 01:56 MPV 10.8 fL (7.4-10.4) H 07/19/20 01:56 Immature Gran % (Auto) 0.3 % 07/19/20 01:56 Neut % (Auto) 81.4 % 07/19/20 01:56 Lymph % (Auto) 10.2 % 07/19/20 01:56 [place] % (Auto) 7.9 % 07/19/20 01:56 Eos % (Auto) 0.1 % 07/19/20 01:56 Baso % (Auto) 0.1 % 07/19/20 01:56 Neut # (Auto) 17.06 K/uL (1.4-6.5) H 07/19/20 01:56 Lymph # (Auto) 2.13 K/uL (1.2-3.4) 07/19/20 01:56 [place] # (Auto) 1.66 K/uL (0.11-0.59) H 07/19/20 01:56 Eos # (Auto) 0.02 K/uL (0-0.5) 07/19/20 01:56 Baso # (Auto) 0.03 K/uL (0-0.2) 07/19/20 01:56 Immature Gran # (Auto) 0.07 K/uL (0.00-0.02) H 07/19/20 01:56 ESR 10 mm/hr (0-21) 07/19/20 01:56 PT 12.3 Seconds (9.0-12.0) H 07/19/20 01:56 INR 1.2 (0.9-1.1) H 07/19/20 01:56 APTT 33.7 Seconds (21.0-31.0) H 07/19/20 01:56 PTT Ratio 1.2 07/19/20 01:56 Sodium 128 mmol/L (136-145) L 07/19/20 01:56 Potassium 3.2 mmol/L (3.5-5.1) L 07/19/20 01:56 Chloride 94 mmol/L (98-107) L 07/19/20 01:56 Carbon Dioxide 23 mmol/L (21-32) 07/19/20 01:56 Anion Gap 11.0 (3-11) 07/19/20 01:56 BUN 55 mg/dl (7-18) H 07/19/20 01:56 Creatinine 2.60 mg/dl (0.6-1.2) H 07/19/20 01:56 Est Cr Clr Drug Dosing 27.8 ml/min 07/19/20 01:56 Est GFR ( Amer) 24.0 07/19/20 01:56 Est GFR (Non-Af Amer) 20.7 07/19/20 01:56 BUN/Creatinine Ratio 21.3 (10-20) H 07/19/20 01:56 Glucose 143 mg/dl (70-99) H 07/19/20 01:56 Calcium 9.5 mg/dl (8.5-10.1) 07/19/20 01:56 Magnesium 2.0 mg/dl (1.8-2.4) 07/19/20 01:56 Total Bilirubin 1.4 mg/dl (0.2-1) H 07/19/20 01:56 AST 19 U/L (15-37) 07/19/20 01:56 ALT 22 U/L (12-78) 07/19/20 01:56 Alkaline Phosphatase 54 U/L (45-117) 07/19/20 01:56 C-Reactive Protein 0.71 mg/dl (0-0.29) H 07/19/20 01:56 Total Protein 8.5 gm/dl (6.4-8.2) H 07/19/20 01:56 Albumin 4.2 gm/dl (3.4-5.0) 07/19/20 01:56 Globulin 4.3 gm/dl (2.5-4.0) H 07/19/20 01:56 Albumin/Globulin Ratio 1.0 (0.9-2) 07/19/20 01:56 Lipase 53 U/L (73-393) L 07/19/20 01:56 TSH 2.040 uIu/ml (0.300-4.500) 07/19/20 01:56 Ethyl Alcohol mg/dL < 3.0 mg/dl (0-3) 07/19/20 02:38 SARS-CoV-2 Ag (Rapid) Negative (Negative) 07/19/20 05:41 Diagnostic Findings [facility] Patient: EDU SOLORIO (Female) : 70 Status: ER Date: 07/19/20 02:39 Room #: History: PAIN ALL OVER ABD, VOMITING Slices: [phone] Priors: Tech: Cameron Lundberg @ [phone] Exams: CT ABDOMEN & PELVIS Without Contrast Contrast: Accession Numbers: [id number] Preliminary Findings Only See Final Report For Complete Findings CT ABDOMEN & PELVIS Without Contrast: Comparison is made to CT abdomen and pelvis 09/23/2019. No acute findings in the abdomen or pelvis. No evidence of small bowel obstruction, bowel wall thickening or inflammatory change. No free fluid or free air within the abdomen or pelvis. No evidence of acute appendicitis. Gallbladder, pancreas, kidneys, liver and spleen are unremarkable. No acute o sseous abnormality. Radiologist: Carmelina Duarte M.D. Study ready at 02:47 and initial results transmitted at 02:58 *This report constitutes a preliminary interpretation only. Non-acute findings felt to be unrelated to the clinical presentation may not be discussed in this report. The study will be interpreted and a final report will be generated by the local Radiologist the following shift. To reach the hospital radiology department call [phone]. If a discrepancy is found between the preliminary and final interpretations of this study, please notify us via our Client Portal at [email or web address].You can also fax this report with a description of the discrepancy, or include the final report, to our daytime fax number [phone].If faxing, please indicate the severity of discrepancy using one of the following categories: [ ] 1 - Agree/Informational [ ] 2 - Unlikely to Affect Management [ ] 3 - Possible Eventual Change of Management [ ] 4 - Probable Immediate Change of Management For all other patient related information, please fax us at [phone]. [id number] Code Status & VTE Plan Code Status Full code VTE Prophylaxis Plan VTE Prophylaxis will be ordered: Yes PG Care Time/CCT Total # of Minutes Spent Total Time Spent with Patient: Total time spent is greater than 50% in military education coordinator rdination of care (as documented) at patient's floor/unit and/or counseling patient: Coding Level of Care Code 62087 Initial Inpt Care Lvl 2 Diagnoses Intractable vomiting R11.10 Nausea presence: unspecified Vomiting type: unspecified Acute kidney injury N17.9 Dehydration E86.0 Marijuana smoker F12.90 Hepatitis C B19.20 Current smoker F17.200 Hypertension I10 (1) Intractable vomiting Nausea presence: unspecified Vomiting type: unspecified Qualified Code(s): R11.10 - Vomiting, unspecified
[2020-07-19] MEDS ORDERED: POTASSIUM CHLORIDE CRTAB 20 MEQ TABCR PO STA (05:52)
[2020-07-19] MEDS ORDERED: diphenhydrAMINE 50 MG/ML VIAL IV PRN (06:32)
[2020-07-19] MEDS ORDERED: ENOXAPARIN INJ 40 MG/0.4 ML SYR SQ SCH (06:32)
[2020-07-19] MEDS ORDERED: LORazepam 0.25 MG/0.5 ML VIAL IV PRN (06:32)
[2020-07-19] MEDS ORDERED: PROMETHAZINE HCL 25 MG in SODIUM CHLORIDE 0.9% 50 ML IV PRN (06:32)
--- NOTE | 2020-07-19 07:31 | CT Scan Report ---
CT SCAN OF THE ABDOMEN AND PELVIS WITHOUT CONTRAST CLINICAL HISTORY: Abdominal pain, nausea, vomiting. COMPARISON STUDY: October 2019 TECHNIQUE: CT scan of the abdomen and pelvis was performed from the lung bases to the proximal femurs . Images are reviewed in the axial, sagittal, and coronal planes. IV contrast was not administered fo r this examination. A dose lowering technique was utilized adhering to the principles of ALARA. CT DOSE: 608.53 mGy.cm FINDINGS: Lower chest: The heart is normal in size and configuration, without pericardial effusion. The lung ba ses and pleural spaces are clear. Liver: The unenhanced liver is normal in size, contour, and attenuation. There is no intrahepatic marlene iary ductal dilatation. Gallbladder: There is subtle hyperdense layering bile. Calculi cannot be excluded Spleen: Normal in size and attenuation. Pancreas: Unremarkable. Adrenal glands: Unremarkable. Kidneys: No renal, ureteral, or bladder calculi are visualized. There is a prominent left renal pelvi s, unchanged from the preceding study. Bowel: There are no transition zones to indicate bowel obstruction. There is no evidence of acute div erticulitis. By history the appendix is surgically absent. Peritoneum: There is no intraperitoneal free air or abdominal ascites. Vasculature: The abdominal aorta is normal in course and caliber. Adenopathy: None. Pelvic viscera: The bladder, and pelvic viscera are unremarkable. Skeletal structures: No destructive osseous lesions are seen. IMPRESSION: 1. No evidence of bowel obstruction. No evidence of free air 2. No evidence of acute diverticulitis 3. Surgically absent appendix 4. No renal, ureteral, or bladder calculi identified ACT 112: Negative or not required by law. Electronically signed by: Guero Garcia M.D. 07/19/2020 7:30 AM
[2020-07-19 08:01] LABS: Appearance Urine Cloudy (Clear); Bilirubin Urine Negative (Negative); Blood Urine Negative (Negative); Color Urine Yellow; Epithelial Cell Urine Auto >30 /lpf (0-5); Glucose Urine UA Negative (Negative); Ketones Urine 1+ (Negative); Leukocyte Esterase Urine Negative (Negative); Nitrite Urine Negative (Negative); Protein Urine 2+ (Negative); Specific Gravity Urine 1.021 (1.000-1.030); Urobilinogen Urine Negative (Negative)
[2020-07-19] MEDS: ONDANSETRON INJ 2 MG/ML 2 ML VIAL IV PRN (08:20)
[2020-07-19] MEDS: ATENOLOL 25 MG TABLET PO SCH (08:21)
[2020-07-19] MEDS: PANTOprazole 40 MG TAB PO SCH (08:21)
[2020-07-19 08:22] LABS: Bacteria Urine Automated 1+ (Negative); RBC Urine Automated 0-4 /hpf (0-4)
[2020-07-19 08:59] LABS: Amphetamines+Metham, Urine Neg (Neg); Barbiturates, Urine Neg (Neg); Benzodiazepine, Urine Neg (Neg); Cocaine, Urine Neg (Neg); MDMA (Ecstacy), Urine Neg (Neg); Methadone, Urine Neg (Neg); Opiate, Urine Neg (Neg); Phencyclidine, Urine Neg (Neg)
--- NOTE | 2020-07-19 09:22 | Electrocardiogram Report ---
Test Reason : Blood Pressure : / mmHG Vent. Rate : 115 BPM Atrial Rate : 115 BPM P-R Int : 144 ms QRS Dur : 082 ms QT Int : 346 ms P-R-T Axes : 050 -13 025 degrees QTc Int : 478 ms Sinus tachycardia Possible Left atrial enlargement Minimal voltage criteria for LVH, may be normal variant Nonspecific ST abnormality Abnormal ECG When compared with ECG of 23-SEP-2019 13:38, Premature ventricular complexes are no longer Present Questionable change in QRS axis Confirmed by Jorge Kumar ([id number]) on 07/19/2020 9:21:54 AM Referred By: REFERRED SELF Confirmed By:Jorge Kumar
[2020-07-19] MEDS: POTASSIUM CHLORIDE / WTR 10 MEQ/100 ML PLCT IV SCH ×2 (09:26→10:30)
[2020-07-19] MEDS: NICOTINE 21 MG/24 HR TDSY TD SCH (12:30)
[2020-07-19 16:45] LABS: BUN Creatinine Ratio 30.3 (10-20); Calcium 8.7 mg/dl (8.5-10.1); Creatinine Clr Calc Pharmacy 49.8 ml/min; Est GFR (African American) 48.5; Est GFR (Non-African American) 41.9
--- NOTE | 2020-07-19 17:54 | Hospitalist Progress Note ---
Date of Service July 19, 2020 Assessment & Plan (1) Intractable vomiting: Intractable n/v, emesis has stopped but still with nausea Completely normal CT of abdomen and pelvis. Normal EGD on 09/25/2019. Placed on Zofran 4 mg IV every 6 hours as needed Phenergan 25 mg IV every 6 hours as needed Urine drug screen + for marijuana only Pt states she has not smoked in 2-4 weeks and that she does not smoke daily EtOH neg Pantoprazole 40 mg p.o. daily Pt states that this has been happening Q3-4months for the last 6 years (2) Acute kidney injury: Acute kidney injury secondary to dehydration- Creatinine 2.6 upon admission, sodium 128, potassium 3.2. Given 1 L normal saline in the ED Placed on NSS at 250 mils per hour x3 L. Potassium chloride 40 mEq p.o. now Repeat Cr is improving, K pending (3) Dehydration: (4) Marijuana smoker: Urine drug screen + for MJ Pt states she has not smoked in 2-4 weeks and that she does not smoke daily (5) Hepatitis C: Relatively normal LFTs (6) Current smoker: NicoDerm patch (7) Hypertension: Previously on atenolol 50 mg daily. Question whether she took her medications recently. Admission and Anticipated Discharge Date Admission Date: July 19, 2020 Subjective Pt states no further emesis, but ongoing nausea. She feels her nausea is less though. No abd pain without palpation. Pt denies fever, SOB, chest pain, c/d, LE pain or swelling. Review of Systems Review of Systems: Pertinent positives and negatives reviewed in HPI--all others negative Physical Exam Constitutional: WD/WN, vitals as above + ill appearing Eyes: normal visual eugene by confrontation and + anicteric sclerae Neck: normal visual inspection and trachea midline Respiratory: normal respiratory effort, lungs clear to auscultation Cardiovascular: Rate/Rhythm: regular rate and regular rhythm Gastrointestinal (Abdomen): Inspection/Auscultation: abdomen not distended Percussion/Palpation: + abdomen tender (mild, diffuse) and abdomen soft Musculoskeletal: Head/Neck/Chest: normocephalic and head atraumatic negative for edema, peripheral pulses intact Skin: no rashes, warm and dry Neurologic: awake; not confused Speech / Cognition: normal speech Psychiatric: A+Ox3, euthymic affect Results & Data Results & Data ([place]) Vital Signs (Past 12 Hours) Vital Signs Temp Pulse Pulse Resp BP BP BP 07/19/20 16:41 62 07/19/20 16:10 36.8 C 62 20 143/89 H 07/19/20 11:56 36.3 C L 57 L 20 157/99 H 07/19/20 09:33 150/94 H 163/112 H 07/19/20 07:29 36.8 C 96 H 18 175/124 H 160/108 H 07/19/20 06:35 37.2 C 95 H 20 187/122 H 07/19/20 06:01 109 H 18 186/127 H Pulse Ox 07/19/20 16:41 07/19/20 16:10 94 07/19/20 11:56 96 07/19/20 09:33 07/19/20 07:29 95 07/19/20 06:35 94 07/19/20 06:01 95 PG Care Time/CCT Total # of Minutes Spent Total Time Spent with Patient: Total time spent is greater than 50% in coordination of care (as documented) at patient's floor/unit and/or counseling patient: Coding Level of Care Code 33984 Subseq Hosp Care Lvl 3 Diagnoses Intractable vomiting R11.10 Nausea presence: unspecified Vomiting type: unspecified Acute kidney injury N17.9 Dehydration E86.0 Marijuana smoker F12.90 Hepatitis C B19.20 Current smoker F17.200 Hypertension I10 (1) Intractable vomiting Nausea presence: unspecified Vomiting type: unspecified Qualified Code(s): R11.10 - Vomiting, unspecified
[2020-07-19 19:56] LABS: Potassium 3.7 mmol/L (3.5-5.1)
[2020-07-19] MEDS: ACETAMINOPHEN 325 MG TAB PO PRN (20:20)
[2020-07-20] MEDS: SODIUM CHLORIDE 0.9% 1000ML 1,000 ML IV SCH (01:00)
[2020-07-20] MEDS: ACETAMINOPHEN 325 MG TAB PO PRN ×2 (05:07→08:21)
[2020-07-20 06:24] LABS: Hematocrit (blood only) 41.9 % (37-47); Hemoglobin 14.1 g/dL (12.0-16.0); Mean Corpuscular Hemoglobin 29.1 pg (25-34); Mean Corpuscular Hgb Conc 33.7 g/dL (32-36); Mean Corpuscular Volume 86.6 fL (80-100); Mean Platelet Volume 10.5 fL (7.4-10.4); Platelet Count 227 K/uL (130-400); RDW Coefficient of Variation 14.4 % (11.5-14.5); RDW Standard Deviation 45.7 fL (36.4-46.3); Red Blood Count 4.84 M/uL (4.2-5.4); White Blood Count 10.46 K/uL (4.8-10.8)
[2020-07-20 06:51] LABS: Basophils # (auto) 0.03 K/uL (0-0.2); Basophils % (auto) 0.3 %; Eosinophils # (auto) 0.14 K/uL (0-0.5); Eosinophils % (auto) 1.3 %; Immature Granulocytes # (auto) 0.03 K/uL (0.00-0.02); Immature Granulocytes % (auto) 0.3 %; Lymphocytes # (auto) 3.74 K/uL (1.2-3.4); Lymphocytes % (auto) 35.8 %; Monocytes # (auto) 0.98 K/uL (0.11-0.59); Monocytes % (auto) 9.4 %; Neutrophils # (auto) 5.54 K/uL (1.4-6.5); Neutrophils % (auto) 52.9 %
[2020-07-20 06:55] LABS: Albumin Globulin Ratio 1.1 (0.9-2); Albumin Level 3.1 gm/dl (3.4-5.0); BUN Creatinine Ratio 24.7 (10-20); Bilirubin,Total 0.8 mg/dl (0.2-1); Calcium 8.4 mg/dl (8.5-10.1); Creatinine Clr Calc Pharmacy 66.1 ml/min; Est GFR (African American) 67.1; Est GFR (Non-African American) 57.9; Globulin 2.9 gm/dl (2.5-4.0); Magnesium 2.2 mg/dl (1.8-2.4); Potassium 3.8 mmol/L (3.5-5.1)
[2020-07-20] MEDS: NICOTINE 21 MG/24 HR TDSY TD SCH (08:23)
[2020-07-20] MEDS: PANTOprazole 40 MG TAB PO SCH (08:24)
[2020-07-20] MEDS: ATENOLOL 25 MG TABLET PO SCH (08:35)
[2020-07-20] MEDS ORDERED: hydrALAZINE HCL 20 MG/ML VIAL IV ONE (09:36)
[2020-07-20] MEDS ORDERED: SUMAtriptan succinate 6 MG/0.5 ML VIAL SQ ONE (14:00)
[2020-07-20] MEDS: ONDANSETRON INJ 2 MG/ML 2 ML VIAL IV PRN (14:46)
--- NOTE | 2020-07-20 15:14 | Discharge Summary ---
Date of Service July 20, 2020 Admission HPI Per Admitting Provider The patient is a 50-year-old female with a past medical history including marijuana abuse, hepatitis C, tobacco abuse, hypophosphatemia, gastritis, hypertension, anxiety, atypical migraine, previous admissions for intractable nausea vomiting and a normal EGD on 09/25/2019. Patient presents with symptoms of nausea and vomiting x3 days. She denies any questionable food intake, recent travel or sick exposures. She reports she smoked a few cigarettes yesterday, and reports that she has not had marijuana use recently. Principal Diagnosis Pt had no further n/v since yesterday. Was developing a slight headache this AM, which she felt was due to not really having much to eat other than clears. Trial of breakfast did not cause return of n/v, however headache increased to what pt feels is her usual migraine headache. Pt ate lunch without issues otherwise. Attempted trial of sumatriptan 6mg IM x1, however this made headache worse and caused mild nausea. 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 She states that she feels she would do better with her headache if she is at home and would like to be d/c'd. Pt states she snores. She states her boyfriend has told her that her breathing stops at times when she is sleeping. She has never had a sleep study. Pt states that she used to be on 2-3 different HTN meds, however she lost her PCP and has not been able to get a prescription for this. She takes her boyfriend's medication at times as he takes atenolol as well. She states that even when she was taking her HTN meds regularly, her BP was never controlled. Pt has hx of migraines, 2-3x/month. She states that she sometimes has a headache when she develops the intractable n/v. She is not certain if any of this correlates with her BP readings. Discharge Exam Constitutional WD/WN, vitals as above Eyes normal visual eugene by confrontation and + anicteric sclerae Neck normal visual inspection and trachea midline Respiratory normal respiratory effort, lungs clear to auscultation Cardiovascular Rate/Rhythm: regular rate and regular rhythm Gastrointestinal (Abdomen) Inspection/Auscultation: abdomen not distended Percussion/Palpation: abdomen soft; abdomen nontender Musculoskeletal Head/Neck/Chest: normocephalic and head atraumatic Skin no rashes, warm and dry Neurologic awake; not confused Speech / Cognition: normal speech Psychiatric A+Ox3, euthymic affect Discharge Data Allergies Allergy/AdvReac Type Severity Reaction Status Date / Time codeine Allergy Unknown GI SYMPTOMS Verified 07/19/20 03:03 tramadol Allergy Unknown GI SYMPTOMS Verified 07/19/20 03:03 morphine AdvReac Unknown N/V Verified 07/19/20 03:03 hydromorphone [From Dilaudid] AdvReac Nausea Verified 07/19/20 03:03 Consultations 07/19/20 04:47 ED Decision to Admit Stat Ordered Studies 07/19/20 02:03 CT abd pelvis wo con Urgent Hospital Course (1) Intractable vomiting: Intractable n/v, resolved during admission Completely normal CT of abdomen and pelvis. Normal EGD on 09/25/2019. Placed on Zofran 4 mg IV every 6 hours as needed Phenergan 25 mg IV every 6 hours as needed Urine drug screen + for marijuana only Pt states she has not smoked in 2-4 weeks and that she does not smoke daily EtOH neg Pantoprazole 40 mg p.o. daily Pt states that this has been happening Q3-4months for the last 6 years Pt with hx of migraines, 2-3x/month. Possibly abd migraines as well? Pt did have a migraine on day of discharge Attempted sumatriptan IM 6mg, however pt had recurrence of nausea and headache with this (no emesis and nausea was less intense than on admission) Pt preference to d/c home to be in a quiet and dark environment Gave script for sumatriptan PO Could also consider amitriptyline if ongoing migraines/abd migraines (2) Acute kidney injury: Acute kidney injury secondary to dehydration- Creatinine 2.6 upon admission, sodium 128, potassium 3.2. Given 1 L normal saline in the ED Placed on NSS at 250 mils per hour x3 L. Potassium chloride 40 mEq p.o. now Resolved (3) Dehydration: (4) Marijuana smoker: Urine drug screen + for MJ Pt states she has not smoked in 2-4 weeks and that she does not smoke daily (5) Hepatitis C: Relatively normal LFTs (6) Current smoker: NicoDerm patch (7) Hypertension: Previously on atenolol 50 mg daily, however pt has been using atentolol sporadically due to not having a PCP She states she used to be on multiple medications-3 total--for HTN, but it was still always uncontrolled Admits to snoring and states that her boyfriend tells her she stops breathing at times Pt will need a sleep study for likely undx JR Pt was advised that if she does have JR, her BP will not be controlled, even with multiple meds, until it is tx She agrees Asked CM to arrange sleep study, however they stated that PCP has to arrange Total Time Total Time Spent Total Time Spent (In Minutes): >30 Total Time Includes: Examination of the Patient, Discharge Planning, Medication Reconciliation, Communication With Other Providers and Other Discharge Plan Discharge Items Patient Disposition: Home - Self-Care Reason For Visit: INTRACTABLE NAUSEA AND VOMITING Discharge Diagnosis: Intractable nausea and vomiting Activity: Resume your previous activity Non-emergency contact: Primary Care Provider Call non-emergency contact if: you have any medication questions, your symptoms worsen and your pain is concerning for you Follow-up/Referrals: PCP,NO [Primary Care Provider] - Diet: Regular Addtl Attending Provider Instructions: You have been set up with an appt on 09/26/19 at 10:[address] Miky Aquino. . Dr. Aquino will help you to set up your sleep study. You should check your blood pressure daily. I think you will need changes in your blood pressure medications and this will help us to manage better. As we discussed, if you have underlying sleep apnea, your blood pressure will not be easily controlled with medications. All of this could be causing or contributing to your migraines. Pending Studies at Discharge: No Stand-Alone Forms: My [facility], Smoking Cessation Medications and DC Order Prescriptions: New atenolol 25 mg Tablet 25 mg PO DAILY Qty: 30 RF: 0 sumatriptan succinate 50 mg tablet See Rx Instructions .ROUTE .COMPLEX Qty: 14 RF: 0 Continued atenolol 25 mg Tablet 25 mg PO DAILY RF: 0 pantoprazole 40 mg Tablet,Delayed Release (Dr/Ec) 40 mg PO DAILY RF: 0 Discharge Orders: Discharge Order (Routine); Ordered 07/20/20 Ordered By: Devi Khoury Admission Data Admit Date/Time: 07/19/20 05:31 Attending Provider: Devi Khoury Admit Provider: Maurizio Bonilla Primary Care Provider: PCP,NO Other Providers: Maurizio Bonilla Other Interventions: Discharge Summary Assessment (RN) Last Done: 07/20/20 15:15 Coding Level of Care Code D/C Day Management >30 mins Diagnoses Intractable vomiting R11.10 Acute kidney injury N17.9 Dehydration E86.0 Marijuana smoker F12.90 Hepatitis C B19.20 Current smoker F17.200 Hypertension I10
[2020-07-20 23:44] LABS: Marijuana Quant, GCMS Urine 109 ng/mL (<5)
== END 2020-07-20 17:02 | disposition home or self-care (01) | DRG 392 ==
LOC: ED 01:48 → SUATTDRO 05:31 → 2N 05:31

== ENCOUNTER 2020-10-27 15:07 | Inpatient (IN) ==
[2020-10-27] MEDS ORDERED: SODIUM CHLORIDE 0.9% 1000ML 2,000 ML IV ONE (15:13)
[2020-10-27] MEDS ORDERED: ONDANSETRON INJ 2 MG/ML 2 ML VIAL IV STA (15:13)
[2020-10-27] MEDS ORDERED: PROMETHAZINE 25 MG/51 ML BAG IV STA (15:13)
[2020-10-27] MEDS ORDERED: KETOROLAC TROMETHAMINE 15 MG/ML VIAL IV ONE (15:21)
--- NOTE | 2020-10-27 15:26 | Emergency Department Note ---
Impression & Plan Vomiting, Hypertension, Leukocytosis, GEORGINA (acute kidney injury) ED Provider Note NAME: EDU SOLORIO AGE: 50 SEX: F : 1970 ARRIVES VIA: Ambulance INFORMANT: Patient ED PROVIDER(S): Rd Hogan DO CHIEF COMPLAINT: Abdominal pain HPI: Patient is a 50-year-old female who presents to ER with a past medical history of hepatitis C, marijuana use, hypertensive urgency, intermittent abdominal pain, history of Crohn's disease and migraines that presents the ER for nausea vomiting. Symptoms started with vomiting. She started get crampy abdominal pain which was diffuse 10 out of 10. She has had multiple episodes like this before in the past. She tried Reglan and Zofran at home with no improvement. Started earlier this morning. She does have a very mild headache. She notes that this is dull in nature. No neck pain. No fevers. No trauma. Denies any black stools or dark tarry stools. Denies any hemoptysis or hematemesis. No dysuria urgency or frequency. Previous C-sections. Has not had a menstrual cycle in several years. History of appendectomy. She was brought in by EMS. She believes that she was able to get her medications down today but was not 100% sure. ROS: See above HPI for pertinent positives & negatives. A total of 10 systems reviewed and were otherwise negative. PAST MEDICAL HISTORY:See Below PAST SURGICAL HISTORY:See Below FAMILY HISTORY:See Below SOCIAL HISTORY:See Below HOME MEDICATIONS:See Below ALLERGIES:See Below VITALS:See Below PHYSICAL EXAMINATION: GENERAL: Sitting up in bed, alert, disheveled, vomiting EYE EXAM: normal conjunctiva. OROPHARYNX: no exudate, no erythema, lips, buccal mucosa, and tongue normal and mucous membranes are moist NECK: supple, no nuchal rigidity, no adenopathy, non-tender LUNGS: Clear to auscultation. Normal chest wall mechanics HEART: Tachycardic, S1 normal and S2 normal ABDOMEN: abdomen soft, non-tender, normo-active bowel sounds, no masses, no rebound or guarding. UPPER EXTREMITIES: upper extremities are grossly normal. LOWER EXTREMITIES: No pitting edema. NEURO EXAM: Normal sensorium, cranial nerves II-XII grossly intact, normal speech, no gross weakness of arms, no gross weakness of legs. MEDICAL DECISION MAKING: Patient is a 50-year-old female who presents the ER for abdominal pain associate with vomiting. She has a very mild headache. She has had this multiple times before in the past. IV was established blood work was obtained. Labs showed no significant leukocytosis and a slightly elevated hemoglobin which I favor secondary to dehydration. BMP with mild hypokalemia. LFTs bilirubin troponin was negative. Lipase was unremarkable. UA with ketones consistent with dehydration. CT abdomen pelvis was unremarkable. She has had some mild coffee- ground emesis while here. She has been given IV Zofran, Toradol, Phenergan, and Reglan with improvement of her vomiting but still has a fair amount. She was given a dose of IV Ativan to see if this would also help out with the vomiting. Patient was discussed with hospitalist for observation due to persistent vomiting. Blood pressure did trend down slightly from 250s to 200 with IV hydralazine. She was given a total 2 dose of hydralazine. She was given a dose of IV Dilaudid 0.5 mg. She was updated bedside and discussed with the hospitalist for observation. Patient had no chest pain. Nothing to suggest dissection. Very mild headache. Do believe that this is all originating from abdominal nausea and vomiting. Initially held off on narcotics as they make her more nauseated. After discussion with her we did give a dose of Dilaudid. Triage Nursing notes reviewed. Limited review of prior medical records performed Vital Signs: reviewed and remarkable for htn Differential diagnosis: Differential diagnoses includes but is not limited to gastritis, peptic ulcer disease, GERD, gallbladder disease, pancreatitis, small bowel obstruction, acute coronary syndrome, pericarditis, ischemic bowel, irritable bowel disease, irritable bowel syndrome, appendicitis, diverticulitis, malignancy, hernia, urin nathaly tract infection, torsion, perforation, trauma, infectious. ER treatment provided: See below Diagnostics interpreted by me: ECG: Sinus rhythm rate of 55 Normal axis No PVCs QTC 405 Cardiac Monitoring: An order was placed for continuous cardiac monitoring. The monitor shows a rate of 58 with sinus rhythm. Laboratory studies: As stated above and show below. Imaging studies: CT abdomen pelvis shows no acute pathology Consultation(s): Discussed with hospitalist for further evaluation Procedures: none Critical Care: I have personally spent 32 minutes of critical care time in the direct management of this patient. This includes bedside care, interpretation of diagnostic studies, and testing, discussion with consultants, patient, and family members, and other required patient management activities. This 32 minutes is in excess of all separately billable procedures. Past Med/Surg History Medical History (Updated 10/27/20 @ 17:47 by Jeffery Rdz MD) Anxiety Gastritis Hx of Crohn's disease Hypertension Migraine UTI (urinary tract infection) Surgical History History of appendectomy History of delivery History of orthopedic surgery Family History Other Hypertension Social History Smoking Status: Current every day smoker Tobacco Type: Cigarettes Cigarettes Per Day: 40; Second Hand Exposure: No; Hx Alcohol Use: No Hx Substance Use: Yes Last Used Substance: Unknown Substance Use Type Other:: aprazolam Preferred Language: Pakistani Communication Ability: Effective Medical Education Specialist Required: No Beliefs That Will Affect Care: None marital status: Current Living Situation: Family Current Living Situation Comment: daughter lives with patient current occupational status: unemployed Feels Safe at Home: Yes Assistive Devices: None Allergies Allergies Allergy/AdvReac Type Severity Reaction Status Date / Time codeine Allergy Unknown GI SYMPTOMS Verified 07/19/20 03:03 tramadol Allergy Unknown GI SYMPTOMS Verified 07/19/20 03:03 morphine AdvReac Unknown N/V Verified 07/19/20 03:03 hydromorphone [From Dilaudid] AdvReac Nausea Verified 07/19/20 03:03 Home Meds Home Medications Medication Instructions Recorded Confirmed atenolol 25 mg PO DAILY 05/15/18 07/19/20 pantoprazole 40 mg PO DAILY 05/15/18 10/27/20 alprazolam 0.5 mg PO TID PRN 10/27/20 10/27/20 Previous Rx's Medication Instructions Recorded atenolol 25 mg PO DAILY #30 tab 07/20/20 sumatriptan succinate See Rx Instructions .ROUTE 07/20/20 .COMPLEX #14 tab Results & Data (ED) Vital Signs Vital Signs - 24 hr 10/27/20 15:14 10/27/20 16:18 Temperature 36.6 C Temperature Source Oral Pulse Rate 49 L Pulse Rate [Right Finger] 61 Pulse Rhythm [Right Finger] Regular Pulse Strength [Right Finger] Normal Respiratory Rate 24 24 Respiratory Effort / Characteristics Non-Labored Respiratory Depth Normal Normal Respiratory Pattern Rapid/Shallow Blood Pressure 252/155 H Blood Pressure [Right Arm] 234/133 H Blood Pressure Mean 187 Blood Pressure Mean [Right Arm] 166 Blood Pressure Position Semi-fowlers Blood Pressure Position [Right Arm] Semi-fowlers Pulse Oximetry 100 100 Oxygen Delivery Method Room Air Room Air Sepsis Recent Fever Within 48 Hours No Sepsis New/Unexplained Change in Mental Status No Sepsis Action Taken by Nursing No Action Required Laboratory Data Result diagrams: 10/27/20 15:19 10/27/20 15:19 Lab Results 10/27/20 10/27/20 10/27/20 Range/Units 15:19 15:19 15:25 WBC 17.53 H (4.8-10.8) K/uL RBC 5.47 H (4.2-5.4) M/uL Hgb 16.6 H (12.0-16.0) g/dL POC Hgb 17.0 H (12.0-16.0) g/dl Hct 45.9 (37-47) % POC Hct 50 H (37-47) % MCV 83.9 (80-100) fL MCH 30.3 (25-34) pg MCHC 36.2 H (32-36) g/dL RDW Std Deviation 42.8 (36.4-46.3) fL RDW Coeff of Bo 14.0 (11.5-14.5) % Plt Count 371 (130-400) K/uL MPV 11.1 H (7.4-10.4) fL Immature Gran % (Auto) 0.2 % Neut % (Auto) 80.8 % Lymph % (Auto) 14.3 % [place] % (Auto) 3.5 % Eos % (Auto) 0.9 % Baso % (Auto) 0.3 % Neut # (Auto) 14.16 H (1.4-6.5) K/uL Lymph # (Auto) 2.51 (1.2-3.4) K/uL [place] # (Auto) 0.62 H (0.11-0.59) K/uL Eos # (Auto) 0.15 (0-0.5) K/uL Baso # (Auto) 0.05 (0-0.2) K/uL Immature Gran # (Auto) 0.04 H (0.00-0.02) K/uL POC Sodium 138 (135-144) mmol/L Sodium 137 (136-145) mmol/L POC Potassium 3.3 (3.3-5.0) mmol/L Potassium 3.3 L (3.5-5.1) mmol/L POC Chloride 102 (101-112) mmol/L Chloride 104 (98-107) mmol/L Carbon Dioxide 23 (21-32) mmol/L POC Total CO2 23 L (24-31) mmol/L Anion Gap 10.0 (3-11) POC Anion Gap 17.0 (16-25) mmol/L POC BUN 15 (7-18) mg/dl BUN 13 (7-18) mg/dl Creatinine 0.92 (0.6-1.2) mg/dl POC Creatinine 0.6 (0.6-1.3) mg/dl Est Cr Clr Drug Dosing 65.9 ml/min Est GFR ( Amer) 84.1 Est GFR (Non-Af Amer) 72.6 BUN/Creatinine Ratio 14.6 (10-20) Glucose 179 H (70-99) mg/dl POC Glucose (other) 187 H (70-99) mg/dl Calcium 10.5 H (8.5-10.1) mg/dl POC Ioniz Calcium Irineo 1.13 (1.12-1.32) mmol/l Total Bilirubin 0.9 (0.2-1) mg/dl AST 13 L (15-37) U/L ALT 25 (12-78) U/L Alkaline Phosphatase 57 (45-117) U/L Troponin I < 0.015 (0-0.045) ng/ml Total Protein 8.6 H (6.4-8.2) gm/dl Albumin 4.3 (3.4-5.0) gm/dl Globulin 4.3 H (2.5-4.0) gm/dl Albumin/Globulin Ratio 1.0 (0.9-2) Lipase 100 (73-393) U/L Urine Color Urine Appearance (Clear) Urine pH (4.5-7.5) Ur Specific [place] (1.000-1.030) Urine Protein (Negative) Urine Glucose (UA) (Negative) Urine Ketones (Negative) Urine Blood (Negative) Urine Nitrite (Negative) Urine Bilirubin (Negative) Urine Urobilinogen (Negative) Ur Leukocyte Esterase (Negative) Urine WBC (Auto) (0-5) /hpf Urine RBC (Auto) (0-4) /hpf U Hyaline Cast (Auto) (0-5) /lpf U Epithel Cells (Auto) (0-5) /lpf Urine Bacteria (Auto) (Negative) 10/27/20 Range/Units Unknown WBC (4.8-10.8) K/uL RBC (4.2-5.4) M/uL Hgb (12.0-16.0) g/dL POC Hgb (12.0-16.0) g/dl Hct (37-47) % POC Hct (37-47) % MCV (80-100) fL MCH (25-34) pg MCHC (32-36) g/dL RDW Std Deviation (36.4-46.3) fL RDW Coeff of Bo (11.5-14.5) % Plt Count (130-400) K/uL MPV (7.4-10.4) fL Immature Gran % (Auto) % Neut % (Auto) % Lymph % (Auto) % [place] % (Auto) % Eos % (Auto) % Baso % (Auto) % Neut # (Auto) (1.4-6.5) K/uL Lymph # (Auto) (1.2-3.4) K/uL [place] # (Auto) (0.11-0.59) K/uL Eos # (Auto) (0-0.5) K/uL Baso # (Auto) (0-0.2) K/uL Immature Gran # (Auto) (0.00-0.02) K/uL POC Sodium (135-144) mmol/L Sodium (136-145) mmol/L POC Potassium (3.3-5.0) mmol/L Potassium (3.5-5.1) mmol/L POC Chloride (101-112) mmol/L Chloride (98-107) mmol/L Carbon Dioxide (21-32) mmol/L POC Total CO2 (24-31) mmol/L Anion Gap (3-11) POC Anion Gap (16-25) mmol/L POC BUN (7-18) mg/dl BUN (7-18) mg/dl Creatinine (0.6-1.2) mg/dl POC Creatinine (0.6-1.3) mg/dl Est Cr Clr Drug Dosing ml/min Est GFR ( Amer) Est GFR (Non-Af Amer) BUN/Creatinine Ratio (10-20) Glucose (70-99) mg/dl POC Glucose (other) (70-99) mg/dl Calcium (8.5-10.1) mg/dl POC Ioniz Calcium Irineo (1.12-1.32) mmol/l Total Bilirubin (0.2-1) mg/dl AST (15-37) U/L ALT (12-78) U/L Alkaline Phosphatase (45-117) U/L Troponin I (0-0.045) ng/ml Total Protein (6.4-8.2) gm/dl Albumin (3.4-5.0) gm/dl Globulin (2.5-4.0) gm/dl Albumin/Globulin Ratio (0.9-2) Lipase (73-393) U/L Urine Color Yellow Urine Appearance Clear (Clear) Urine pH 7.0 (4.5-7.5) Ur Specific [place] 1.037 H (1.000-1.030) Urine Protein 2+ H (Negative) Urine Glucose (UA) Trace H (Negative) Urine Ketones 2+ H (Negative) Urine Blood Negative (Negative) Urine Nitrite Negative (Negative) Urine Bilirubin Negative (Negative) Urine Urobilinogen Negative (Negative) Ur Leukocyte Esterase Negative (Negative) Urine WBC (Auto) 1-5 (0-5) /hpf Urine RBC (Auto) 0-4 (0-4) /hpf U Hyaline Cast (Auto) 1-5 (0-5) /lpf U Epithel Cells (Auto) >30 H (0-5) /lpf Urine Bacteria (Auto) 1+ H (Negative) Administered Medications Discontinued Medications Famotidine (Famotidine 20mg/5ml Iv Push) 20 mg IV ONE STA Stop: 10/27/20 17:24 Last Admin: 10/27/20 17:42 Dose: 20 mg Documented by: [id number] Hydralazine HCl (Hydralazine Hcl 20 Mg/Ml Vial) 10 mg IV NOW STA Stop: 10/27/20 16:47 Last Admin: 10/27/20 17:42 Dose: 20 mg Documented by: [id number] Sodium Chloride (Nss 1000ml) 2,000 mls @ 999 mls/hr IV .Q2H1M ONE Stop: 10/27/20 17:13 Last Infusion: 10/27/20 17:35 Dose: 0 mls/hr Documented by: [id number] Admin: 10/27/20 15:25 Dose: 999 mls/hr Documented by: [id number] Promethazine HCl (Phenergan) 25 mg in 51 mls @ 204 mls/hr IV NOW STA Stop: 10/27/20 15:27 Last Infusion: 10/27/20 16:32 Dose: 0 mls/hr Documented by: [id number] Admin: 10/27/20 15:38 Dose: 204 mls/hr Documented by: [id number] Sodium Chloride (Nss 1000ml) 1,000 mls @ 999 mls/hr IV .Q1H1M ONE Stop: 10/27/20 17:00 Last Admin: 10/27/20 17:42 Dose: 999 mls/hr Documented by: [id number] Lorazepam (Ativan) 0.5 mg in 1 mls @ 1 mls/min IV NOW STA Stop: 10/27/20 16:26 Last Admin: 10/27/20 16:41 Dose: 1 mls/min Documented by: [id number] Ioversol (Ioversol 100ml) 94 ml IV ONCE ONE Stop: 10/27/20 15:51 Last Admin: 10/27/20 15:50 Dose: 94 ml Documented by: [id number] Ketorolac Tromethamine (Ketorolac Tromethamine 15 Mg/Ml Vial) 15 mg IV NOW ONE Stop: 10/27/20 15:22 Last Admin: 10/27/20 15:31 Dose: 15 mg Documented by: [id number] Metoclopramide HCl (Metoclopramide Hcl Inj 5 Mg/Ml 2 Ml Vial) 5 mg IV ONE ONE Stop: 10/27/20 16:26 Last Admin: 10/27/20 16:41 Dose: 5 mg Documented by: [id number] Ondansetron HCl (Ondansetron Inj 2 Mg/Ml 2 Ml Vial) 4 mg IV NOW STA Stop: 10/27/20 15:14 Last Admin: 10/27/20 15:30 Dose: 4 mg Documented by: [id number] Discharge Plan Visit Data Chief Complaint: Vomiting Stated Complaint: VOMITING ED Provider: Rd Hogan Discharge Problem: Vomiting, Hypertension, Leukocytosis, GEORGINA (acute kidney injury) Forms Stand Alone Forms: My [facility] Prescriptions Prescriptions: No Action atenolol 25 mg Tablet 25 mg PO DAILY RF: 0 pantoprazole 40 mg Tablet,Delayed Release (Dr/Ec) 40 mg PO DAILY RF: 0 atenolol 25 mg Tablet 25 mg PO DAILY Qty: 30 RF: 0 sumatriptan succinate 50 mg tablet See Rx Instructions .ROUTE .COMPLEX Qty: 14 RF: 0 alprazolam 0.5 mg tablet 0.5 mg PO TID PRN (Reason: Anxiety) RF: 0 Discharge Problem: Vomiting Qualifiers: Vomiting type: unspecified Vomiting Intractability: unspecified Nausea presence: unspecified Qualified Code(s): R11.10 - Vomiting, unspecified Hypertension Qualifiers: Hypertension type: unspecified Qualified Code(s): I10 - Essential (primary) hypertension Leukocytosis Qualifiers: Leukocytosis type: unspecified Qualified Code(s): D72.829 - Elevated white blood cell count, unspecified
[2020-10-27 15:32] LABS: Basophils # (auto) 0.05 K/uL (0-0.2); Basophils % (auto) 0.3 %; Eosinophils # (auto) 0.15 K/uL (0-0.5); Eosinophils % (auto) 0.9 %; Hematocrit (blood only) 45.9 % (37-47); Hemoglobin 16.6 g/dL (12.0-16.0); Immature Granulocytes # (auto) 0.04 K/uL (0.00-0.02); Immature Granulocytes % (auto) 0.2 %; Lymphocytes # (auto) 2.51 K/uL (1.2-3.4); Lymphocytes % (auto) 14.3 %; Mean Corpuscular Hemoglobin 30.3 pg (25-34); Mean Corpuscular Hgb Conc 36.2 g/dL (32-36); Mean Corpuscular Volume 83.9 fL (80-100); Mean Platelet Volume 11.1 fL (7.4-10.4); Monocytes # (auto) 0.62 K/uL (0.11-0.59); Monocytes % (auto) 3.5 %; Neutrophils # (auto) 14.16 K/uL (1.4-6.5); Neutrophils % (auto) 80.8 %; Platelet Count 371 K/uL (130-400); RDW Standard Deviation 42.8 fL (36.4-46.3); Red Blood Count 5.47 M/uL (4.2-5.4); White Blood Count 17.53 K/uL (4.8-10.8)
[2020-10-27 15:37] LABS: iSTAT Creatinine 0.6 mg/dl (0.6-1.3); iSTAT Ionized Calcium 1.13 mmol/l (1.12-1.32); iSTAT Potassium 3.3 mmol/L (3.3-5.0)
[2020-10-27] MEDS ORDERED: OPTIRAY 320 100ml IV ONE (15:50)
[2020-10-27 15:54] LABS: Alanine Aminotransferase 25 U/L (12-78); Albumin Level 4.3 gm/dl (3.4-5.0); Aspartate Aminotransferase 13 U/L (15-37); BUN Creatinine Ratio 14.6 (10-20); Blood Urea Nitrogen 13 mg/dl (7-18); Calcium 10.5 mg/dl (8.5-10.1); Carbon Dioxide 23 mmol/L (21-32); Chloride 104 mmol/L (98-107); Creatinine Clr Calc Pharmacy 65.9 ml/min; Est GFR (African American) 84.1; Est GFR (Non-African American) 72.6; Glucose 179 mg/dl (70-99); Lipase 100 U/L (73-393); Potassium 3.3 mmol/L (3.5-5.1); Sodium 137 mmol/L (136-145)
[2020-10-27 15:59] LABS: Alkaline Phosphatase 57 U/L (45-117); Bilirubin,Total 0.9 mg/dl (0.2-1); Globulin 4.3 gm/dl (2.5-4.0); Total Protein 8.6 gm/dl (6.4-8.2); Troponin I < 0.015 ng/ml (0-0.045)
[2020-10-27] MEDS ORDERED: SODIUM CHLORIDE 0.9% 1000ML 1,000 ML IV ONE (16:00)
--- NOTE | 2020-10-27 16:07 | CT Scan Report ---
CT SCAN OF THE ABDOMEN AND PELVIS WITH IV CONTRAST CLINICAL HISTORY: Generalized abdominal pain. Hematemesis. COMPARISON STUDY: Abdominal CT dated 07/19/2020. TECHNIQUE: Following the IV administration of 94 cc of Optiray 320, CT scan of the abdomen and pelvi s is performed from the lung bases to the proximal femora. Images are reviewed in the axial, sagittal , and coronal planes. IV contrast was administered without complication. A dose lowering technique wa s utilized adhering to the principles of ALARA. CT DOSE: 868.71 mGy.cm FINDINGS: Lung bases: The heart is normal in size and without pericardial effusion. Emphysematous change is see n at the lung bases. No airspace consolidation or pleural effusion is identified. Punctate calcified granulomas are incidentally noted. There is a small hiatal hernia. Liver: The contrast-enhanced liver is normal in size, contour, and attenuation. There is no intrahepa tic biliary ductal dilatation. The hepatic veins and portal veins are patent. Gallbladder: Unremarkable. Spleen: Normal in size and attenuation. Pancreas: Unremarkable. Adrenal glands: Unremarkable. Kidneys: The contrast enhanced kidneys are normal in size and without hydronephrosis. The kidneys enh ance symmetrically. Abdominal vasculature: The abdominal aorta is normal in course and caliber noting moderate to advance d atherosclerotic calcification. Bowel: There is no bowel obstruction. Submucosal fat deposition is noted throughout the colon. The ap pendix is not identified and reported surgically absent. Peritoneum: There is no intraperitoneal free air or abdominal ascites. Lymphadenopathy: None. Pelvic viscera: The bladder, uterus, and adnexa are normal as imaged. Skeletal structures: No lytic or blastic lesions are seen. IMPRESSION: There are no acute infectious or inflammatory findings in the abdomen or pelvis. ACT 112: Negative or not required by law. Electronically signed by: Felipe Spangler M.D. 10/27/2020 4:06 PM
[2020-10-27] MEDS ORDERED: LORazepam 0.5 MG/1 ML VIAL IV STA (16:25)
[2020-10-27] MEDS ORDERED: METOCLOPRAMIDE HCL INJ 5 MG/ML 2 ML VIAL IV ONE (16:25)
[2020-10-27 16:30] LABS: Appearance Urine Clear (Clear); Bacteria Urine Automated 1+ (Negative); Bilirubin Urine Negative (Negative); Blood Urine Negative (Negative); Color Urine Yellow; Epithelial Cell Urine Auto >30 /lpf (0-5); Glucose Urine UA Trace (Negative); Ketones Urine 2+ (Negative); Leukocyte Esterase Urine Negative (Negative); Nitrite Urine Negative (Negative); Protein Urine 2+ (Negative); RBC Urine Automated 0-4 /hpf (0-4); Specific Gravity Urine 1.037 (1.000-1.030); Urobilinogen Urine Negative (Negative)
[2020-10-27] MEDS ORDERED: hydrALAZINE HCL 20 MG/ML VIAL IV STA ×2 (16:46→17:28)
[2020-10-27] MEDS ORDERED: ACETAMINOPHEN 325 MG TAB PO PRN (17:03)
--- NOTE | 2020-10-27 17:10 | History & Physical Report ---
Date of Service October 27, 2020 Assessment & Plan (1) Hypertensive urgency: Hydralazine 10 mg IV every 4 hourly for systolic blood pressure > 160 Labetalol 10 mg IV every 2 hourly for systolic blood pressure > 180 (2) Nausea & vomiting: Ondansetron 4 mg every 4 hourly IV as needed Phenergan 25 mg every 6 hourly as needed (3) Abdominal pain: Unclear if hypertensive urgency causing nausea, vomiting, abdominal pain versus abdominal migraine. No etiology seen on CT A/P and similar to prior occasions Dilaudid PRN - patient reports this has been used in the past to some degree of success (4) Leukocytosis: Suspect stress reaction although she does have some left shift. We will repeat with a.m. labs. No infective cause seen on CT A/P (5) Marijuana smoker: Does not appear to be contributory given she smokes once a month and no correlation to current symptoms. Consider capsaicin cream if symptoms continue Admission and Anticipated Discharge Date Admission Date: 10/27/2020 History of Present Illness Chief Complaint: Abdominal pain Primary Care Provider: Kiersten Pitt PA-C Charleen Mathis is a 50-year-old female with history of gastritis, marijuana use, hepatitis C, tobacco use, anxiety and atypical migraine who presents to the ER due to intractable vomiting and severe abdominal pain that started at 4 AM today. She has had multiple similar episodes of this most recently in July 2020 with associated hypertension. Her symptoms on this occasion for similarly to her hospitalization in September 2019 when her symptoms resolved with hypertensive urgency management. EGD on that occasion was unremarkable and gastroenterology felt her nausea and vomiting was secondary to her severe hypertension. She reports feeling much worse on this occasion however. Abdominal pain is generalized, severity 10/10. She denies any abnormal foods or taken notes, recent travel or sick exposures. Last marijuana use was 1 month ago. In the ER she was noted to be extremely hypertensive with blood pressure 252/155 on arrival which was treated with hydralazine 10 mg IV in the ER without significant change. In addition she was given NSS 3L bolus, promethazine 25 mg IV, ondansetron 4 mg IV, Toradol 50 mg IV, lorazepam 0.5 mg IV, metoclopramide [address] abdomen/pelvis showed no acute infectious or inflammatory findings. Allergies Allergy/AdvReac Type Severity Reaction Status Date / Time codeine Allergy Unknown GI SYMPTOMS Verified 10/27/20 17:59 tramadol Allergy Unknown GI SYMPTOMS Verified 10/27/20 17:59 morphine AdvReac Unknown N/V Verified 10/27/20 17:59 hydromorphone [From Dilaudid] AdvReac Nausea Verified 10/27/20 17:59 Home Medications Medication Instructions Recorded Confirmed Type pantoprazole 40 mg PO DAILY 05/15/18 10/27/20 History atenolol 25 mg PO DAILY #30 tab 07/20/20 10/27/20 Rx albuterol sulfate 2 puff INHALATION QID PRN 10/27/20 10/27/20 History alprazolam 0.5 mg PO TID PRN 10/27/20 10/27/20 History amitriptyline 0 mg PO . DIRECTED 10/27/20 10/27/20 History lisinopril 20 mg PO DAILY 10/27/20 10/27/20 History sotalol 0 mg PO . DIRECTED 10/27/20 10/27/20 History Past Med/Surg History Medical History (Updated 10/29/20 @ 22:57 by Augusto Carlton DO) Anxiety Gastritis Hepatitis C Hx of Crohn's disease Hypertension Migraine UTI (urinary tract infection) Surgical History History of appendectomy History of delivery History of orthopedic surgery Family History Other Hypertension Social History Smoking Status: Current every day smoker Tobacco Type: Cigarettes Cigarettes Per Day: 1 ppd; Second Hand Exposure: No; Do You Dip or Chew Tobacco: No; Tobacco Cessation Education Requested by Patient: No ("I have it") Hx Alcohol Use: No Hx Substance Use: Yes Last Used Substance: Days (ago) Last Used Substance Other:: month ago Substance Use Type Other:: aprazolam Preferred Language: Khmer Communication Ability: Effective 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 Beliefs That Will Affect Care: None marital status: Current Living Situation: Significant Other Current Living Situation Comment: daughter lives with patient current occupational status: unemployed Other Information That Helps Us Care for You: No Feels Safe at Home: Yes Safety Concerns: Feels Safe At This Time Assistive Devices: None Review of Systems Review of Systems: All systems reviewed & are unremarkable except as noted in HPI & below Physical Exam Constitutional: + acute distress (Abdominal pain and ongoing nausea) Eyes: PERRL, conjunctivae normal, anicteric sclerae Neck: trachea midline Cardiovascular: Rate/Rhythm: regular rate and regular rhythm Heart Sounds: no murmur Extremities: normal capillary refill; no pedal edema Gastrointestinal (Abdomen): Inspection/Auscultation: + hypoactive bowel sounds Percussion/Palpation: + abdomen tender (Generalized throughout), + guarding and abdomen soft; abdomen not rigid Musculoskeletal: no cyanosis or clubbing, extremities motor strength 5/5 Skin: no rashes, warm and dry Neurologic: deep tendon reflexes 2+ bilaterally, moves all extremities and awake; no focal motor deficits (No lateralizing weakness) and not confused Cranial Nerves: PERRL, EOM intact bilaterally, normal facial strength, tongue midline, able to rotate head bilaterally, able to elevate shoulders bilaterally, no nystagmus and symmetric palate elevation Psychiatric: Orientation: alert and oriented x 3 Affect: + tearful affect Mood: + anxious mood Results & Data Results & Data ([facility]) Vital Signs (Past 12 Hours) Vital Signs Temp Pulse Pulse Resp BP BP Pulse Ox 10/27/20 16:18 36.6 C 61 24 234/133 H 100 10/27/20 15:14 49 L 24 252/[address] SCAN OF THE ABDOMEN AND PELVIS WITH IV CONTRAST IMPRESSION: There are no acute infectious or inflammatory findings in the abdomen or pelvis. Medications Administered ER medications given: Ondansetron 4 mg IV Phenytoin 25 mg IV Toradol 15 mg IV NSS 3L bolus Metoclopramide 5 mg IV Ativan 0.5 mg IV Hydralazine 10 mg IV ECG Indication: abdominal pain Rate (beats per minute): 55 Rhythm: sinus with SA Comparison ECG Date: from (July 19, 2020) Change: the following changes noted (Increasing T wave amplitude) Code Status & VTE Plan Code Status Full PG Care Time/CCT Total # of Minutes Spent Total Time Spent with Patient: Total time spent is greater than 50% in coordination of care (as documented) at patient's floor/unit and/or counseling patient: Coding Level of Care Code 06818 OBS Care - Level 3 Diagnoses Hypertensive urgency I16.0 Nausea & vomiting R11.2 Abdominal pain R10.84 Abdominal location: generalized Leukocytosis D72.829 Leukocytosis type: unspecified Marijuana smoker F12.90 (1) Leukocytosis Leukocytosis type: unspecified Qualified Code(s): D72.829 - Elevated white blood cell count, unspecified (2) Abdominal pain Abdominal location: generalized Qualified Code(s): R10.84 - Generalized abdominal pain
[2020-10-27] MEDS ORDERED: HYDROmorphone INJ 0.5 MG/0.5 ML SYR IV STA ×3 (17:22→20:03)
[2020-10-27] MEDS ORDERED: FAMOTIDINE 20MG/5ML IV PUSH IV STA (17:23)
[2020-10-27] MEDS ORDERED: SUMAtriptan succinate 6 MG/0.5 ML VIAL SQ STA (17:25)
[2020-10-27] MEDS: LABETALOL HCL IV 5 MG/ML 20ML IV PRN (19:09)
[2020-10-27] MEDS ORDERED: LABETALOL HCL IV 5 MG/ML 20ML IV STA (20:03)
[2020-10-27] MEDS: NITROGLYCERIN 2% OINTMENT 30GM TUBE EXT SCH (20:43)
[2020-10-27] MEDS: hydrALAZINE HCL 20 MG/ML VIAL IV PRN (21:40)
[2020-10-27] MEDS: ONDANSETRON INJ 2 MG/ML 2 ML VIAL IV PRN (21:40)
[2020-10-27] MEDS ORDERED: CAPSAICIN CR 0.075% 60 GM TUBE EXT PRN (22:35)
[2020-10-27] MEDS: HYDROmorphone INJ 1 MG/ML SYRINGE IV PRN (23:08)
[2020-10-27] MEDS: PROMETHAZINE HCL 25 MG in SODIUM CHLORIDE 0.9% 50 ML IV PRN (23:12)
[2020-10-28] MEDS ORDERED: MAGNESIUM SULFATE / D5W 1 GM/100 ML BAG IV ONE (00:49)
[2020-10-28] MEDS: POTASSIUM CHLORIDE / WTR 10 MEQ/100 ML PLCT IV SCH ×2 (01:36→02:39)
[2020-10-28] MEDS ORDERED: LORazepam 2 MG/4 ML VIAL IV STA (02:28)
[2020-10-28] MEDS: NITROGLYCERIN 2% OINTMENT 30GM TUBE EXT SCH ×4 (02:39→21:19)
[2020-10-28] MEDS: ONDANSETRON INJ 2 MG/ML 2 ML VIAL IV PRN ×4 (03:17→21:20)
[2020-10-28] MEDS: LABETALOL HCL IV 5 MG/ML 20ML IV PRN (03:17)
--- NOTE | 2020-10-28 06:04 | Electrocardiogram Report ---
Test Reason : Blood Pressure : / mmHG Vent. Rate : 055 BPM Atrial Rate : 055 BPM P-R Int : 164 ms QRS Dur : 082 ms QT Int : 424 ms P-R-T Axes : 052 008 019 degrees QTc Int : 405 ms Sinus bradycardia with marked sinus arrhythmia Otherwise normal ECG When compared with ECG of 19-JUL-2020 01:54, Vent. rate has decreased BY 60 BPM T wave amplitude has increased in Lateral leads Confirmed by Esvin Kam ([id number]) on 10/28/2020 6:04:06 AM Referred By: REFERRED SELF Confirmed By:Esvin Kam
[2020-10-28 08:03] LABS: Basophils # (auto) 0.02 K/uL (0-0.2); Basophils % (auto) 0.1 %; Eosinophils # (auto) 0.01 K/uL (0-0.5); Eosinophils % (auto) 0.1 %; Hematocrit (blood only) 52.9 % (37-47); Hemoglobin 19.1 g/dL (12.0-16.0); Immature Granulocytes # (auto) 0.06 K/uL (0.00-0.02); Immature Granulocytes % (auto) 0.3 %; Lymphocytes % (auto) 8.7 %; Mean Corpuscular Hemoglobin 30.3 pg (25-34); Mean Corpuscular Hgb Conc 36.1 g/dL (32-36); Mean Corpuscular Volume 83.8 fL (80-100); Mean Platelet Volume 10.7 fL (7.4-10.4); Monocytes # (auto) 1.55 K/uL (0.11-0.59); Monocytes % (auto) 7.9 %; Neutrophils # (auto) 16.27 K/uL (1.4-6.5); Neutrophils % (auto) 82.9 %; Platelet Count 327 K/uL (130-400); RDW Coefficient of Variation 14.1 % (11.5-14.5); RDW Standard Deviation 43.6 fL (36.4-46.3); Red Blood Count 6.31 M/uL (4.2-5.4); White Blood Count 19.61 K/uL (4.8-10.8)
--- NOTE | 2020-10-28 08:29 | Hospitalist Progress Note ---
Date of Service October 28, 2020 Assessment & Plan (1) Hypertensive urgency: Chest pain this morning without radiation to arm jaw or neck. No back pain. Troponin bumped from less than 0.015-0.[address] changes Check echocardiogram Continue blood pressure management with hydralazine labetalol IV as well as atenolol p.o. NicoDerm patch Await findings from echocardiogram Repeat troponin down to 0.[address] Apprec[address] Dr. Kam's input (2) Leukocytosis: Patient has elevated white count, elevated hemoglobin, elevated h ematocrit, elevated platelets Patient does not appear to be septic Peripheral smear completed. No evidence of clear myelodysplasia We will check for JAK2 mutation to rule out polycythemia, essential thrombocythemia, myelofibrosis, and CML Consider outpatient evaluation by hematology. Coordinate through PCP for referral Follow serial labs (3) Abdominal pain: CT abdomen with no acute findings Last bowel movement yesterday morning No rebound tenderness or generalized tenderness with palpation Continue bowel regimen Continue antiemetic for nausea (4) Elevated hemoglobin: No prior history per patient per chart review shows persistent elevation of hemoglobin No prior history of polycythemia Patient is not have a history of chronic hypoxia but is a smoker. She also has no history of tumor or other malignancy Continue to monitor. May consider outpatient evaluation by hematology (5) Hypokalemia: Potassium 3.3 this morning We will give the patient 20 mEq of potassium chloride p.o. NSS with 20 mEq/L at 80 mL/h Magnesium level 1.9 today Follow serial labs and replete as needed (6) Hypercalcemia: No prior history of malignancy Patient is an everyday smoker Ionized calcium was 1.13 Follow serial labs at this time (7) Current smoker: 15 cigarettes/day Counseled on complete abstention NicoDerm patch 21 mg daily, remove at bedtime (8) Hyperglycemia: Hemoglobin A1c 5.7% 09/23/2019 Repeat hemoglobin A1c today Not receiving any steroids Elevated leukocytosis No evidence of pancreatitis or other issues with CT scan with contrast We will initiate sliding scale insulin (9) JR (obstructive sleep apnea): Has not had polysomnography testing Does not use positive air pressure at home. Reported snoring and pauses in sleeping (10) DVT prophylaxis: Will initiate heparin 5000 units SQ every 8 hours Admission and Anticipated Discharge Date Admission Date: October 27, 2020 Subjective Attending: Dr. Carlton Patient seen and examined at bedside. Was called to the bedside by RN for complaint of chest pain. EKG with some minor ST changes. No ST elevation. Echocardiogram ordered. Patient continues with hypertension and is currently receiving hydralazine and labetalol as needed as well as scheduled atenolol 25 mg p.o. daily. Troponin elevated from less than 0.015 ~0.178. Patient still with some nausea but no vomiting. Zofran administered. Patient denies any fever, chills, sweats, rigors. She is a smoker of approximately 15 cigarettes daily. She is requesting a NicoDerm patch. She is also requesting her home dose of Xanax. Aside from anxiety, she continues with some nondescript abdominal pain. CT scan unrevealing. No pain with palpation. Bowel sounds normal. No other acute complaints. Review of Systems Review of Systems: All systems reviewed & are unremarkable except as noted in Subjective Physical Exam Physical Exam: GENERAL : No acute distress. EYES: No icterus, gaze conjugate NOSE: No evidence of epistaxis. MOUTH: No lesions or candidiasis. Mucosa is moist. No evidence of vomiting the posterior oropharynx. NECK: Supple LUNGS: CTA B/L, no wheezes, rales or rhonchi. Good inspiratory effort with no induced cough. HEART: Regular, rate controlled. No appreciation of murmurs gallops or rubs ABDOMEN: Soft, NT, ND, BS Present. Some guarding but no rebound tenderness or pain with deep palpation. EXTREMITIES: No LE edema, pedal pulses intact and equal bilaterally NEURO: A&OX3 Results & Data Results & Data ([facility]) Vital Signs (Past 12 Hours) Vital Signs Temp Pulse Pulse Resp BP BP BP 10/28/20 07:26 37.1 C 106 H 17 163/104 H 10/28/20 05:38 123/87 10/28/20 02:29 182/100 H 10/28/20 00:28 184/111 H 10/27/20 22:53 208/100 H 10/27/20 21:05 37 C 71 20 220/112 H 10/27/20 20:48 62 24 222/129 H Pulse Ox 10/28/20 07:26 92 10/28/20 05:38 10/28/20 02:29 10/28/20 00:28 10/27/20 22:53 10/27/20 21:05 97 10/27/20 20:48 100 Laboratory Results 10/28/20 07:49 10/28/20 07:49 10/27/20 10/28/20 15:19 07:49 Troponin I < 0.015 0.178 H* Diagnostic Findings CT SCAN OF THE ABDOMEN AND PELVIS WITH IV CONTRAST CLINICAL HISTORY: Generalized abdominal pain. Hematemesis. COMPARISON STUDY: Abdominal CT dated 07/19/2020. TECHNIQUE: Following the IV administration of 94 cc of Optiray 320, CT scan of the abdomen and pelvis is performed from the lung bases to the proximal femora. Images are reviewed in the axial, sagittal, and coronal planes. IV contrast was administered without complication. A dose lowering technique was utilized adhering to the principles of ALARA. CT DOSE: 868.71 mGy.cm FINDINGS: Lung bases: The heart is normal in size and without pericardial effusion. Emphysematous change is seen at the lung bases. No airspace consolidation or pleural effusion is identified. Punctate calcified granulomas are incidentally noted. There is a small hiatal hernia. Liver: The contrast-enhanced liver is normal in size, contour, and attenuation. There is no intrahepatic biliary ductal dilatation. The hepatic veins and portal veins are patent. Gallbladder: Unremarkable. Spleen: Normal in size and attenuation. Pancreas: Unremarkable. Adrenal glands: Unremarkable. Kidneys: The contrast enhanced kidneys are normal in size and without hydronephrosis. The kidneys enhance symmetrically. Abdominal vasculature: The abdominal aorta is normal in course and caliber noting moderate to advanced atherosclerotic calcification. Bowel: There is no bowel obstruction. Submucosal fat deposition is noted throughout the colon. The appendix is not identified and reported surgically absent. Peritoneum: There is no intraperitoneal free air or abdominal ascites. Lymphadenopathy: None. Pelvic viscera: The bladder, uterus, and adnexa are normal as imaged. Skeletal structures: No lytic or blastic lesions are seen. IMPRESSION: There are no acute infectious or inflammatory findings in the abdomen or pelvis. Electronically signed by: Felipe Spangler M.D. 10/27/2020 4:06 PM PG Care Time/CCT Total # of Minutes Spent Total Time Spent with Patient: Total time spent is greater than 50% in c oordination of care (as documented) at patient's floor/unit and/or counseling patient:45 Coding Level of Care Code 25421 Subseq Hosp Care Lvl 3 Diagnoses Hypertensive urgency I16.0 Leukocytosis D72.829 Leukocytosis type: unspecified Abdominal pain R10.84 Abdominal location: generalized Elevated hemoglobin D58.2 Hypokalemia E87.6 Hypercalcemia E83.52 Current smoker F17.200 Hyperglycemia R73.9 JR (obstructive sleep apnea) G47.33 DVT prophylaxis Z29.9 Time Spent (min) 45 (1) Leukocytosis Leukocytosis type: unspecified Qualified Code(s): D72.829 - Elevated white blood cell count, unspecified (2) Abdominal pain Abdominal location: generalized Qualified Code(s): R10.84 - Generalized abdominal pain
[2020-10-28 08:37] LABS: Albumin Level 4.5 gm/dl (3.4-5.0); BUN Creatinine Ratio 12.7 (10-20); Calcium 9.6 mg/dl (8.5-10.1); Creatinine Clr Calc Pharmacy 63.6 ml/min; Est GFR (African American) 64.9; Magnesium 2.3 mg/dl (1.8-2.4); Potassium 3.5 mmol/L (3.5-5.1)
[2020-10-28 08:53] LABS: Bilirubin,Total 1.3 mg/dl (0.2-1); Globulin 4.5 gm/dl (2.5-4.0); Troponin I 0.178 ng/ml (0-0.045)
[2020-10-28] MEDS: HYDROmorphone INJ 1 MG/ML SYRINGE IV PRN ×3 (09:34→21:20)
[2020-10-28] MEDS: ATENOLOL 25 MG TABLET PO SCH (09:35)
[2020-10-28] MEDS ORDERED: POTASSIUM CHLORIDE CRTAB 20 MEQ TABCR PO STA (10:34)
[2020-10-28] MEDS ORDERED: CARBOHYDRATES FOR HYPOGLYCEMIA PO PRN (10:39)
[2020-10-28] MEDS ORDERED: GLUCOSE 10 TABS/TUBE PO PRN (10:39)
[2020-10-28] MEDS ORDERED: DEXTROSE 50% 50 ML SYRINGE IV PRN (10:39)
[2020-10-28] MEDS ORDERED: GLUCAGON FOR INJ 1 MG VIAL SQ PRN (10:39)
[2020-10-28] MEDS ORDERED: GLUCOSE 40% GEL 15 GM TUBE PO PRN (10:39)
[2020-10-28] MEDS: NSS + 20MEQ KCL 20 MEQ/1,000 ML BAG IV SCH ×2 (11:16→23:22)
[2020-10-28] MEDS ORDERED: NITROGLYCERIN SL 0.4 MG/TAB TAB ONE (11:29)
[2020-10-28] MEDS ORDERED: NITROGLYCERIN SL 0.4 MG/TAB TAB SL PRN (11:31)
[2020-10-28] MEDS: NICOTINE 21 MG/24 HR TDSY TD SCH (12:09)
[2020-10-28] MEDS: INSULIN ASPART 100 UNITS/ML 3 ML PEN SC SCH ×3 (12:11→22:12)
--- NOTE | 2020-10-28 13:30 | XCELERA ---
[id number]
[2020-10-28 14:07] LABS: Estimated Average Glucose 120 mg/dl; Hemoglobin A1C 5.8 % (4.5-5.6)
--- NOTE | 2020-10-28 17:00 | Cardiology Consultation ---
Date of Consultation October 28, 2020 Assessment & Plan (1) Hypertensive emergency: (2) Elevated troponin: (3) Atypical chest pain: (4) Current smoker: (5) Nausea & vomiting: ASSESSMENT/PLAN: 1. Hypertensive emergency: Blood pressure much improved and most recently normal. She has only received her usual dose of atenolol. Recommend resuming her home dose of lisinopril. 2. Atypical chest pain: She apparently has been experiencing similar chest pain for 2 years. It is quite atypical occurring at rest. It could be related to her recurrent vomiting. She did have elevated troponins, although minimally, today although the rise in her troponin level precedes her chest discomfort. It is not likely that her chest pain represents angina based on her history, but given her risk factors and the fact that she claims that she has not had any recent ischemic evaluation, recommend myocardial perfusion study. She is currently chest pain-free. She did not present with acute coronary syndrome. 3. Elevated troponin: Her troponin was elevated before her episode of chest discomfort and is likely due to severe hypertension that was noted on presentation. Evaluation as above. 4. Tobacco abuse: Recommended that she stop smoking. 5. Nausea vomiting: Chronic issue. She has been evaluated by GI in the past. 6. Sotalol: She states that she takes sotalol at home however there is no obvious reason for her to be on sotalol and she does not recall ever being diagnosed with arrhythmia. After discussion, she thought that her PCP started the medication and then perhaps that was started during recent [facility] stay. Records requested from [facility]. 7. Disposition: Patient care discussed with primary hospitalist team, Mr. Felipe Lopez. Will attempt to obtain myocardial perfusion study tomorrow. She was advised to refrain from caffeine. Thank you for allowing me to participate in the care of your patient. Please call for any other questions or concerns. Sincerely, Bipin Kam M.D. History of Present Illness Reason for Consultation: elevated trop and chest pain Requesting Physician: Augusto Carlton DO Attending Physician: Augusto Carlton DO History of Present Illness Ms. Mathis is a 50-year-old female with a history significant for recurrent vomiting, chest pain, hypertension, gastritis, and Crohn's disease. Cardiology was consulted for elevated troponin and chest pain. She presented on 10/27/2020 with intractable vomiting. She states that she has been vomiting for years and every 3 or 6 months she will have persistent vomiting which can last 3 days in duration. She has been seen at many hospitals including [facility] in [place], [facility], [facility], and [facility]. Yesterday morning at approximately 4:00 a.m., she began to vomit persistently. By the time she got to the emergency department, apparently the vomiting had subsided but she remained nauseated. She had right upper quadrant pain described as bad. She states that she is nauseated more consistently, even while not vomiting. She remains nauseated today. She states that she has been seen by GI in the past through [facility] years ago but did not follow-up as she did not have a car. According to records, she was hospitalized here in 2019 and was seen by [facility] GI, undergoing EGD. It was felt as though perhaps hypertension was driving her vomiting. Earlier today, she developed central chest discomfort which was nonradiating but accompanied by shortness of breath and diaphoresis. She states that this has been intermittently occurring for 2 years and typically lasts a few minutes before subsiding. She received nitroglycerin x2 and her symptoms have since resolved and not returned. She states that she has chest pain 3 or 4 times per week for the past 2 years and that the chest pain typically occurs at rest. There is no association with exertion. She has dyspnea with exertion which is chronic. She sometimes uses supplemental oxygen at home. She has occasional lightheadedness. She states that she has been seen by Cardiology in the past at other hospitals. She has not had cardiac catheterization but recalls having stress testing in the past, but not any time recently. Her initial troponin here was undetectable, but increased to 0.178 before falling. Her ECG demonstrated nonspecific ST abnormality diffusely at that time. On presentation, she was significantly hypertensive with blood pressures charted as high as 252/155. She received intravenous hydralazine and labetalol and her blood pressure has since improved. At home she takes lisinopril and atenolol in she states that she is compliant with these medications. She took them yesterday morning but admits that this was in the midst of vomiting and therefore she does not believe that they were actually absorbed. According to her homeless she also takes sotalol and she agrees with this. She does not recall ever being diagnosed with arrhythmia and believe that the sotalol was treating hypertension. She states that sotalol was initiated by her PCP and then when told that sotalol is typically started as an inpatient, she said that she thinks it was started while she was hospitalized at [facility] approximately 2 months ago. She does not follow with Cardiology. She denies melena, hematochezia, hematuria, or other bleeding. She denies syncope. She has not had any recent palpitations but had palpitations a few years ago. When seen today, she stated that she also had a headache after receiving nitroglycerin. Review of systems: As above. Review of systems otherwise negative/unremarkable. Family history: No known premature CAD in first-degree relatives. Grandfather had CAD. Social history: She smokes approximately 1 pack per day for approximately 20 years. No alcohol. She smokes marijuana. She lives at home with her boyfriend and her 2 children, a son and daughter. She does not work. She is legally from her . She was unaccompanied. Allergies Allergy/AdvReac Type Severity Reaction Status Date / Time codeine Allergy Unknown GI SYMPTOMS Verified 10/27/20 17:59 tramadol Allergy Unknown GI SYMPTOMS Verified 10/27/20 17:59 morphine AdvReac Unknown N/V Verified 10/27/20 17:59 hydromorphone [From Dilaudid] AdvReac Nausea Verified 10/27/20 17:59 Home Medications Medication Instructions Recorded Confirmed Type pantoprazole 40 mg PO DAILY 05/15/18 10/27/20 History atenolol 25 mg PO DAILY #30 tab 07/20/20 10/27/20 Rx albuterol sulfate 2 puff INHALATION QID PRN 10/27/20 10/27/20 History alprazolam 0.5 mg PO TID PRN 10/27/20 10/27/20 History amitriptyline 0 mg PO . DIRECTED 10/27/20 10/27/20 History lisinopril 20 mg PO DAILY 10/27/20 10/27/20 History sotalol 0 mg PO . DIRECTED 10/27/20 10/27/20 History Patient History Medical History (Updated 10/28/20 @ 17:39 by Esvin Kam MD) Anxiety Gastritis Hepatitis C Hx of Crohn's disease Hypertension Migraine UTI (urinary tract infection) Surgical History History of appendectomy History of delivery History of orthopedic surgery Family History Other Hypertension Social History Smoking Status: Current every day smoker Tobacco Type: Cigarettes Cigarettes Per Day: 1 ppd; Second Hand Exposure: No; Do You Dip or Chew Tobacco: No; Tobacco Cessation Education Requested by Patient: No ("I have it") Hx Alcohol Use: No Hx Substance Use: Yes Last Used Substance: Days (ago) Last Used Substance Other:: month ago Substance Use Type Other:: aprazolam Preferred Language: Chilean Communication Ability: Effective District Supervisor Required: No Beliefs That Will Affect Care: None marital status: Current Living Situation: Significant Other Current Living Situation Comment: daughter lives with patient current occupational status: unemployed Other Information That Helps Us Care for You: No Feels Safe at Home: Yes Safety Concerns: Feels Safe At This Time Assistive Devices: Denture - Upper and Denture - Lower Physical Exam Physical Exam: Gen.: No acute distress. Alert and oriented. HEENT: Anicteric sclera. Neck: No JVD. No bruits. Normal carotid upstrokes bilaterally. Cardiac: PMI was nonpalpable. No ventricular heave. Regular rate and rhythm. Normal S1-S2. No murmurs, rubs, or gallops. Pulmonary: Occasional inspiratory and expiratory wheeze bilaterally. No rales. Abdomen: Soft, nondistended, with normoactive bowel sounds. Diffuse abdominal tenderness, with more significant tenderness in the epigastric and right upper quadrant areas. No rebound tenderness. No bruits noted. Extremities: 2+ radial pulses bilaterally. 2+ posterior tibialis pulses bilaterally. No edema or cyanosis. No palpable cords. Psychiatric: Affect appears appropriate. Chest: Tender to palpation throughout the central chest. No obvious rash or mass. Results & Data ([facility]) Vital Signs (Past 12 Hours) Vital Signs Temp Pulse Pulse Resp BP BP Pulse Ox 10/28/20 16:34 73 10/28/20 15:31 37.2 C 74 16 122/83 93 10/28/20 11:36 37.0 C 77 20 108/75 91 10/28/20 09:00 36.7 C 109 H 20 162/101 H 93 10/28/20 08:00 126 H 10/28/20 07:26 37.1 C 106 H 17 163/104 H 92 10/28/20 05:38 123/87 Laboratory Results Laboratory Results - last 24 hr 10/27/20 10/27/20 10/28/20 18:35 18:35 07:49 WBC 19.61 H RBC 6.31 H Hgb 19.1 H Hct 52.9 H MCV 83.8 MCH 30.3 MCHC 36.1 H RDW Std Deviation 43.6 RDW Coeff of Bo 14.1 Plt Count 327 MPV 10.7 H Immature Gran % (Auto) 0.3 Neut % (Auto) 82.9 Lymph % (Auto) 8.7 Murray % (Auto) 7.9 Eos % (Auto) 0.1 Baso % (Auto) 0.1 Neut # (Auto) 16.27 H Lymph # (Auto) 1.70 Murray # (Auto) 1.55 H Eos # (Auto) 0.01 Baso # (Auto) 0.02 Immature Gran # (Auto) 0.06 H Peripher Smr Path Cons Sodium Potassium Chloride Carbon Dioxide Anion Gap BUN Creatinine Est Cr Clr Drug Dosing Est GFR ( Amer) Est GFR (Non-Af Amer) BUN/Creatinine Ratio Glucose POC Glucose Estimat Average Glucose Hemoglobin A1c Calcium Magnesium Total Bilirubin AST ALT Alkaline Phosphatase Troponin I Total Protein Albumin Globulin Albumin/Globulin Ratio COVID-19 Eval Order Covid19 IDNow [facility] SARS-CoV-2, RNA, NAAT NEGATIVE 10/28/20 10/28/20 10/28/20 07:49 07:49 11:20 WBC RBC Hgb Hct MCV MCH MCHC RDW Std Deviation RDW Coeff of Bo Plt Count MPV Immature Gran % (Auto) Neut % (Auto) Lymph % (Auto) Murray % (Auto) Eos % (Auto) Baso % (Auto) Neut # (Auto) Lymph # (Auto) Murray # (Auto) Eos # (Auto) Baso # (Auto) Immature Gran # (Auto) Peripher Smr Path Cons Sodium 131 L Potassium 3.5 Chloride 101 Carbon Dioxide 19 L Anion Gap 11.0 BUN 15 Creatinine 1.14 Est Cr Clr Drug Dosing 63.6 Est GFR ( Amer) 64.9 Est GFR (Non-Af Amer) 56.0 BUN/Creatinine Ratio 12.7 Glucose 157 H POC Glucose 136 H Estimat Average Glucose 120 Hemoglobin A1c 5.8 H Calcium 9.6 Magnesium 2.3 Total Bilirubin 1.3 H AST 17 ALT 25 Alkaline Phosphatase 64 Troponin I 0.178 H* Total Protein 9.0 H Albumin 4.5 Globulin 4.5 H Albumin/Globulin Ratio 1.0 COVID-19 Eval Order SARS-CoV-2, RNA, NAAT 10/28/20 10/28/20 11:38 15:53 WBC RBC Hgb Hct MCV MCH MCHC RDW Std Deviation RDW Coeff of Bo Plt Count MPV Immature Gran % (Auto) Neut % (Auto) Lymph % (Auto) Murray % (Auto) Eos % (Auto) Baso % (Auto) Neut # (Auto) Lymph # (Auto) Murray # (Auto) Eos # (Auto) Baso # (Auto) Immature Gran # (Auto) Peripher Smr Path Cons Sodium Potassium Chloride Carbon Dioxide Anion Gap BUN Creatinine Est Cr Clr Drug Dosing Est GFR ( Amer) Est GFR (Non-Af Amer) BUN/Creatinine Ratio Glucose POC Glucose 123 H Estimat Average Glucose Hemoglobin A1c Calcium Magnesium Total Bilirubin AST ALT Alkaline Phosphatase Troponin I 0.167 H* Total Protein Albumin Globulin Albumin/Globulin Ratio COVID-19 Eval Order SARS-CoV-2, RNA, NAAT Diagnostic Findings Telemetry personally reviewed: Sinus rhythm. No arrhythmia noted. Echo 10/28/2020: Normal LV size, wall motion, systolic function. EF 55-60%. Mild to moderate LVH. No significant valvular abnormalities. Normal RVSP. ECGs personally reviewed: ECG 10/27/2020: Sinus bradycardia with sinus arrhythmia at 55 bpm. ECG 10/28/2020 at 6:27 p.m.: Sinus tachycardia 106 beats per minute. Nonspecific ST abnormality, diffusely. CT abdomen/pelvis 10/27/2020: No acute infectious or inflammatory findings per Radiology. Medications Administered Current Inpatient Medications Acetaminophen (Acetaminophen 325 Mg Tab) 650 mg PO Q4H PRN PRN Reason: Pain or Fever Stop: 11/26/20 17:02 Last Admin: 10/28/20 15:58 Dose: 650 mg Documented by: Atenolol (Atenolol 25 Mg Tablet) 25 mg PO DAILY [facility] Stop: 11/27/20 08:59 Last Admin: 10/28/20 09:35 Dose: 25 mg Documented by: Capsaicin (Capsaicin Cr 0.075% 60 Gm Tube) 1 appln EXT Q6H PRN PRN Reason: Abdominal pain Stop: 11/26/20 22:34 Last Admin: 10/28/20 00:54 Dose: 1 appln Documented by: Dextrose (Dextrose 50% 50 Ml Syringe) 25 - 50 ml IV UD PRN; Protocol PRN Reason: Hypoglycemia Protocol Stop: 11/27/20 10:38 Glucagon (Glucagon For Inj 1 Mg Vial) 1 mg SQ UD PRN; Protocol PRN Reason: Hypoglycemia Protocol Stop: 11/27/20 10:38 Glucose (Glucose 10 Tabs/Tube) 4 - 8 tabs PO UD PRN; Protocol PRN Reason: Hypoglycemia Protocol Stop: 11/27/20 10:38 Glucose (Glucose 40% Gel 15 Gm Tube) 15 - 30 gm PO UD PRN; Protocol PRN Reason: Hypoglycemia Protocol Stop: 11/27/20 10:38 Hydralazine HCl (Hydralazine Hcl 20 Mg/Ml Vial) 10 mg IV Q4H PRN PRN Reason: sBP > 160 Stop: 11/26/20 17:02 Last Admin: 10/27/20 21:40 Dose: 10 mg Documented by: Hydromorphone HCl (Hydromorphone Inj 1 Mg/Ml Syringe) 1 mg IV Q4H PRN PRN Reason: Pain Stop: 11/10/20 22:34 Last Admin: 10/28/20 16:50 Dose: 1 mg Documented by: Promethazine HCl 25 mg/ Sodium (Chloride) 51 mls @ 204 mls/hr IV Q6H PRN PRN Reason: Nausea And Vomiting Stop: 11/26/20 19:03 Last Infusion: 10/27/20 23:39 Dose: Infused Documented by: Potassium Chloride/Sodium Chloride (Normal Saline W/20 Meq Kcl) 20 meq in 1,000 mls @ 80 mls/hr IV .[id number] [facility] Stop: 11/27/20 10:59 Last Admin: 10/28/20 11:16 Dose: 80 mls/hr Documented by: Insulin Aspart (Insulin Aspart 100 Units/Ml 3 Ml Pen) 0 units SC ACHS [facility] Stop: 11/27/20 11:29 Last Admin: 10/28/20 16:50 Dose: Not Given Documented by: Labetalol HCl (Labetalol Hcl Iv 5 Mg/Ml 20ml) 10 mg IV Q2H PRN PRN Reason: sBP > 180 Stop: 11/26/20 17:02 Last Admin: 10/28/20 03:17 Dose: 10 mg Documented by: Lisinopril (Lisinopril 20 Mg Tab) 20 mg PO QAM [facility] Stop: 11/27/20 16:59 Miscellaneous (Remove Nicoderm Patch) 1 ea N/A DAILY@0859 [facility] Stop: 11/28/20 08:58 Miscellaneous (Carbohydrates For Hypoglycemia ) 15 - 30 gm PO UD PRN PRN Reason: Hypoglycemia Protocol Stop: 11/27/20 10:38 Nicotine (Nicotine 21 Mg/24 Hr Tdsy) 21 mg TD [facility] Stop: 11/27/20 10:44 Last Admin: 10/28/20 12:09 Dose: 21 mg Documented by: Nitroglycerin (Nitroglycerin 2% Ointment 30gm Tube) 2 inch EXT Q6H [facility] Stop: 11/26/20 20:14 Last Admin: 10/28/20 14:25 Dose: 2 inch Documented by: Nitroglycerin (Nitroglycerin Sl 0.4 Mg/Tab Tab) 0.4 mg SL PRN PRN PRN Reason: Chest Pain Stop: 11/27/20 11:30 Ondansetron HCl (Ondansetron Inj 2 Mg/Ml 2 Ml Vial) 4 mg IV Q4H PRN PRN Reason: Nausea or vomiting Stop: 11/26/20 19:01 Last Admin: 10/28/20 16:50 Dose: 4 mg Documented by: PG Care Time/CCT Total # of Minutes Spent Total Time Spent with Patient: Total time spent is greater than 50% in coordination of care (as documented) at patient's floor/unit and/or counseling patient: Coding Level of Care Code 28453 Initial Inpt Care Lvl 3 Diagnoses Hypertensive emergency I16.1 Elevated troponin R77.8 Atypical chest pain R07.89 Current smoker F17.200 Nausea & vomiting R11.2
[2020-10-28] MEDS: lisinopril 20 MG TAB PO SCH (17:27)
[2020-10-28] MEDS ORDERED: ASPIRIN CHEW 324 MG PO STA (17:47)
[2020-10-28] MEDS ORDERED: Heparin IV Adult Wt-Based Standard WITH Bolus Protocol IV SCH (17:52)
[2020-10-28] MEDS ORDERED: HEPARIN SODIUM/DEXTROSE 25,000 UNITS/500 ML BAG IV SCH (18:00)
[2020-10-28] MEDS ORDERED: HEPARIN IV BOLUS 5,000 UNITS in SYRINGE 0 ML IV ONE (18:15)
[2020-10-28] MEDS ORDERED: ALUMINUM/MAGNESIUM/SIMETH (MAALOX MAX) 30 ML UDC PO PRN (18:30)
[2020-10-28] MEDS ORDERED: POLYETHYLENE (MIRALAX) 17 GM PACK PO PRN (18:30)
[2020-10-28] MEDS ORDERED: SUCRALFATE 1 GM/10 ML UDC PO PRN (18:30)
[2020-10-28] MEDS: PROMETHAZINE HCL 25 MG in SODIUM CHLORIDE 0.9% 50 ML IV PRN (18:40)
[2020-10-28] MEDS: PANTOprazole 40 MG TAB PO SCH (19:05)
--- NOTE | 2020-10-28 19:15 | XRay Report ---
KUB HISTORY: Increased abdominal pain COMPARISON: Abdomen and pelvis CT 10/27/2020. FINDINGS: The bowel gas pattern is unremarkable. There are no dilated loops of small bowel to suggest an obstruction. No renal calculi. No ureteral calculi. No pneumoperitoneum or pneumatosis. Moderate well-formed stool seen within the proximal colon. This remains unchanged. IMPRESSION: 1. No evidence for bowel obstruction. 2. Moderate well-formed stool seen within the proximal colon. ACT 112: Negative or not required by law. Electronically signed by: Venkat Ramires M.D. 10/28/2020 7:14 PM
[2020-10-28] MEDS: DOCUSATE SODIUM 100 MG CAP PO SCH ×2 (21:20→21:22)
[2020-10-28] MEDS: ALPRAZolam 0.5 MG TABLET PO PRN (23:22)
[2020-10-29] MEDS: PROMETHAZINE HCL 25 MG in SODIUM CHLORIDE 0.9% 50 ML IV PRN ×3 (01:59→16:29)
[2020-10-29] MEDS: NITROGLYCERIN 2% OINTMENT 30GM TUBE EXT SCH ×4 (02:14→21:01)
[2020-10-29 02:18] LABS: Partial Thromboplastin Ratio 2.8
[2020-10-29 02:21] LABS: Partial Thromboplastin Time 74.7 Seconds (21.0-31.0)
--- NOTE | 2020-10-29 05:56 | Electrocardiogram Report ---
Test Reason : Blood Pressure : / mmHG Vent. Rate : 106 BPM Atrial Rate : 106 BPM P-R Int : 146 ms QRS Dur : 088 ms QT Int : 366 ms P-R-T Axes : 068 -02 049 degrees QTc Int : 486 ms Sinus tachycardia Nonspecific ST abnormality Abnormal ECG When compared with ECG of 27-OCT-2020 16:08, Vent. rate has increased BY [address] abnormality is now Present Confirmed by Esvin Kam ([id number]) on 10/29/2020 5:56:18 AM Referred By: REFERRED SELF Confirmed By:Esvin Kam
[2020-10-29] MEDS: PANTOprazole 40 MG TAB PO SCH ×2 (07:57→21:02)
[2020-10-29] MEDS: lisinopril 20 MG TAB PO SCH (07:57)
[2020-10-29] MEDS: DOCUSATE SODIUM 100 MG CAP PO SCH ×2 (07:57→21:01)
[2020-10-29] MEDS: ATENOLOL 25 MG TABLET PO SCH (07:57)
[2020-10-29] MEDS: SENNA 8.6 MG TAB PO SCH (07:58)
[2020-10-29] MEDS: NICOTINE 21 MG/24 HR TDSY TD SCH (07:58)
[2020-10-29] MEDS: INSULIN ASPART 100 UNITS/ML 3 ML PEN SC SCH ×4 (08:01→21:17)
[2020-10-29] MEDS ORDERED: REGADENOSON 0.4 MG/5 ML SYR IV ONE (08:35)
[2020-10-29] MEDS ORDERED: LABETALOL HCL IV 5 MG/ML 20ML IV STA (09:09)
[2020-10-29] MEDS ORDERED: oxyCODONE HCL IR 5 MG TAB (IMMEDIATE RELEASE) PO STA (09:18)
[2020-10-29] MEDS: CEFEPIME 2,000 MG in SYRINGE 0 ML IV SCH ×2 (09:39→21:01)
[2020-10-29] MEDS: metroNIDAZOLE 500 MG/100 ML BAG IV SCH ×2 (09:39→18:13)
[2020-10-29 09:42] LABS: Basophils # (auto) 0.03 K/uL (0-0.2); Basophils % (auto) 0.2 %; Eosinophils # (auto) 0.01 K/uL (0-0.5); Eosinophils % (auto) 0.1 %; Hematocrit (blood only) 50.4 % (37-47); Hemoglobin 17.8 g/dL (12.0-16.0); Immature Granulocytes # (auto) 0.06 K/uL (0.00-0.02); Immature Granulocytes % (auto) 0.3 %; Lymphocytes # (auto) 1.88 K/uL (1.2-3.4); Lymphocytes % (auto) 10.7 %; Mean Corpuscular Hemoglobin 30.2 pg (25-34); Mean Corpuscular Volume 85.4 fL (80-100); Monocytes # (auto) 1.04 K/uL (0.11-0.59); Monocytes % (auto) 5.9 %; Neutrophils % (auto) 82.8 %; Platelet Count 288 K/uL (130-400); RDW Coefficient of Variation 14.4 % (11.5-14.5); RDW Standard Deviation 44.7 fL (36.4-46.3); White Blood Count 17.52 K/uL (4.8-10.8)
[2020-10-29 10:12] LABS: Mean Corpuscular Hgb Conc 35.3 g/dL (32-36)
[2020-10-29 10:20] LABS: Albumin Level 3.8 gm/dl (3.4-5.0); BUN Creatinine Ratio 25.9 (10-20); Bilirubin,Total 1.1 mg/dl (0.2-1); Calcium 8.7 mg/dl (8.5-10.1); Creatinine Clr Calc Pharmacy 87.6 ml/min; Est GFR (African American) 95.3; Est GFR (Non-African American) 82.2; Potassium 4.4 mmol/L (3.5-5.1); Total Protein 7.8 gm/dl (6.4-8.2)
--- NOTE | 2020-10-29 11:06 | Cardiology Progress Note ---
Date of Service October 29, 2020 Assessment & Plan (1) Hypertensive emergency: (2) Elevated troponin: (3) Atypical chest pain: (4) Current smoker: (5) Nausea & vomiting: ASSESSMENT/PLAN: 1. Hypertensive emergency: Her blood pressure has fluctuated what more often than not elevated. When her abdominal discomfort worsens, with more nausea and vomiting, she tends to have more elevated blood pressures. She was experiencing nausea and abdominal pain yesterday however and her blood pressure had improved. Reviewing her blood pressures historically, she tends to be elevated more often than not and therefore lisinopril will be increased to 40 mg daily with additional 20 mg now. It appears as though she received her morning dose of 20 mg just prior to vomiting and therefore may not see any affect from her initial dose today. 2. Atypical chest pain: Her GI symptoms do not appear to be cardiac in origin and her chest pain appears atypical. He She apparently has been experiencing similar chest pain for 2 years. It is quite atypical occurring at rest. It could be related to her recurrent vomiting. She did have elevated troponins, although minimally, today although the rise in her troponin level precedes her chest discomfort. It is not likely that her chest pain represents angina based on her history. Given her risk factors and recurrent hospitalizations, myocardial perfusion study was recommended. Unfortunately, she has not been able to tolerate the imaging due to recurrent vomiting. If her GI symptoms improved, can finish the stress portion later this hospitalization. If not, this can be done as an outpatient. 3. Elevated troponin: Her troponin was elevated before her episode of chest discomfort and is likely due to severe hypertension that was noted on presentation. Her troponin continued to trend downward despite ongoing GI symptoms throughout the entire day yesterday. She did not present with acute coronary syndrome and her GI complaints do not appear to be anginal equivalent. If she is able to complete the myocardial perfusion study, perhaps it can be completed prior to discharge. If not, outpatient study can be arranged in the future. 4. Tobacco abuse: Stop smoking. 5. Nausea vomiting and significant epigastric/right upper quadrant pain: Consider GI consultation. 6. Sotalol: She states that she takes sotalol at home however there is no obvious reason for her to be on sotalol and she does not recall ever being diagnosed with arrhythmia. After discussion, she thought that her PCP started the medication and then perhaps that was started during recent [facility] stay. Records requested from [facility] but are not yet available for review. 7. Disposition: Patient care has been discussed with Dr. Carlton of the primary hospitalist service. Cardiology will sign off for now. Please call with any other questions or concerns. I will be away from the hospital. Please call the on-call informatics nurse specialist. Admission and Anticipated Discharge Date Admission Date: October 28, 2020 Subjective Patient was seen earlier this morning. Prior to my arrival at the bedside, I was notified that while she was in the nuclear stress lab, she was extremely nauseated and began vomiting. They were unable to proceed with imaging and therefore the stress test has not been completed. She did take rest imaging the night before. She has not had any further chest pain and denies shortness of breath. She denies palpitations or syncope. She has had ongoing epigastric and right upper quadrant pain and persistent nausea with vomiting this morning. During our visit today, she was initially laying back in bed talking on the phone. I left the room and returned after her phone conversation was over, she was hunched over in bed due to abdominal pain. She states that the abdominal pain and nausea continue since yesterday. She had a worsening episode last evening as well where she became diaphoretic and her heart rate reduced into the 40s but remains sinus on ECG. Discussed with nursing staff yesterday that this was likely a vagal response to her abdominal discomfort and nausea. Despite her ongoing symptoms, her troponin trended downward this morning. Primary service initiated heparin drip yesterday during her worsening epigastric and right upper quadrant pain. Review of systems: As above. Physical Exam Physical Exam: Gen.: No acute distress. Alert and oriented. HEENT: Anicteric sclera. Neck: No JVD. Cardiac: Regular. Normal S1-S2. No murmurs, rubs, or gallops. Pulmonary: Clear to auscultation bilaterally. Abdomen: Soft, nondistended, with normoactive bowel sounds. Diffuse abdominal tenderness, with more significant tenderness in the epigastric and right upper quadrant areas. No rebound tenderness. No bruits noted. Extremities: 2+ radial pulses bilaterally. No edema or cyanosis. Psychiatric: Affect appears appropriate. Results & Data ([facility]) Vital Signs (Past 12 Hours) Vital Signs Temp Pulse Resp BP BP Pulse Ox 10/29/20 09:16 154/110 H 10/29/20 08:50 232/136 H 215/126 H 10/29/20 08:00 232/136 H 10/29/20 07:58 36.6 C 87 22 220/110 H 97 10/29/20 05:42 36.8 C 78 12 184/138 H 94 10/29/20 02:14 184/130 H Laboratory Results Laboratory Results - last 24 hr 10/28/20 10/28/20 10/28/20 07:49 07:49 11:20 WBC RBC Hgb Hct MCV MCH MCHC RDW Std Deviation RDW Coeff of Bo Plt Count MPV Immature Gran % (Auto) Neut % (Auto) Lymph % (Auto) [place] % (Auto) Eos % (Auto) Baso % (Auto) Neut # (Auto) Lymph # (Auto) [place] # (Auto) Eos # (Auto) Baso # (Auto) Immature Gran # (Auto) Peripher Smr Path Cons APTT PTT Ratio Sodium Potassium Chloride Carbon Dioxide Anion Gap BUN Creatinine Est Cr Clr Drug Dosing Est GFR ( Amer) Est GFR (Non-Af Amer) BUN/Creatinine Ratio Glucose POC Glucose 136 H Estimat Average Glucose 120 Hemoglobin A1c 5.8 H Calcium Total Bilirubin AST ALT Alkaline Phosphatase Troponin I Total Protein Albumin Globulin Albumin/Globulin Ratio Lipase 10/28/20 10/28/20 10/28/20 11:38 15:53 20:28 WBC RBC Hgb Hct MCV MCH MCHC RDW Std Deviation RDW Coeff of Bo Plt Count MPV Immature Gran % (Auto) Neut % (Auto) Lymph % (Auto) [place] % (Auto) Eos % (Auto) Baso % (Auto) Neut # (Auto) Lymph # (Auto) [place] # (Auto) Eos # (Auto) Baso # (Auto) Immature Gran # (Auto) Peripher Smr Path Cons APTT PTT Ratio Sodium Potassium Chloride Carbon Dioxide Anion Gap BUN Creatinine Est Cr Clr Drug Dosing Est GFR ( Amer) Est GFR (Non-Af Amer) BUN/Creatinine Ratio Glucose POC Glucose 123 H 156 H Estimat Average Glucose Hemoglobin A1c Calcium Total Bilirubin AST ALT Alkaline Phosphatase Troponin I 0.167 H* Total Protein Albumin Globulin Albumin/Globulin Ratio Lipase 10/29/20 10/29/20 10/29/20 00:31 01:46 06:15 WBC RBC Hgb Hct MCV MCH MCHC RDW Std Deviation RDW Coeff of Bo Plt Count MPV Immature Gran % (Auto) Neut % (Auto) Lymph % (Auto) [place] % (Auto) Eos % (Auto) Baso % (Auto) Neut # (Auto) Lymph # (Auto) [place] # (Auto) Eos # (Auto) Baso # (Auto) Immature Gran # (Auto) Peripher Smr Path Cons APTT Cancelled 74.7 H* PTT Ratio Cancelled 2.8 Sodium Potassium Chloride Carbon Dioxide Anion Gap BUN Creatinine Est Cr Clr Drug Dosing Est GFR ( Amer) Est GFR (Non-Af Amer) BUN/Creatinine Ratio Glucose POC Glucose Estimat Average Glucose Hemoglobin A1c Calcium Total Bilirubin AST ALT Alkaline Phosphatase Troponin I Cancelled Total Protein Albumin Globulin Albumin/Globulin Ratio Lipase 10/29/20 10/29/20 10/29/20 06:51 07:22 09:17 WBC 17.52 H RBC 5.90 H Hgb 17.8 H Hct 50.4 H MCV 85.4 MCH 30.2 MCHC 35.3 RDW Std Deviation 44.7 RDW Coeff of Bo 14.4 Plt Count 288 MPV 11.0 H Immature Gran % (Auto) 0.3 Neut % (Auto) 82.8 Lymph % (Auto) 10.7 [place] % (Auto) 5.9 Eos % (Auto) 0.1 Baso % (Auto) 0.2 Neut # (Auto) 14.50 H Lymph # (Auto) 1.88 [place] # (Auto) 1.04 H Eos # (Auto) 0.01 Baso # (Auto) 0.03 Immature Gran # (Auto) 0.06 H Peripher Smr Path Cons APTT PTT Ratio Sodium Potassium Chloride Carbon Dioxide Anion Gap BUN Creatinine Est Cr Clr Drug Dosing Est GFR ( Amer) Est GFR (Non-Af Amer) BUN/Creatinine Ratio Glucose POC Glucose 137 H Estimat Average Glucose Hemoglobin A1c Calcium Total Bilirubin AST ALT Alkaline Phosphatase Troponin I 0.021 Total Protein Albumin Globulin Albumin/Globulin Ratio Lipase 10/29/20 09:17 WBC RBC Hgb Hct MCV MCH MCHC RDW Std Deviation RDW Coeff of Bo Plt Count MPV Immature Gran % (Auto) Neut % (Auto) Lymph % (Auto) [place] % (Auto) Eos % (Auto) Baso % (Auto) Neut # (Auto) Lymph # (Auto) [place] # (Auto) Eos # (Auto) Baso # (Auto) Immature Gran # (Auto) Peripher Smr Path Cons APTT PTT Ratio Sodium 135 L Potassium 4.4 D Chloride 106 Carbon Dioxide 24 Anion Gap 5.0 BUN 21 H Creatinine 0.83 D Est Cr Clr Drug Dosing 87.6 Est GFR ( Amer) 95.3 Est GFR (Non-Af Amer) 82.2 BUN/Creatinine Ratio 25.9 H Glucose 144 H POC Glucose Estimat Average Glucose Hemoglobin A1c Calcium 8.7 Total Bilirubin 1.1 H AST 13 L ALT 22 Alkaline Phosphatase 51 Troponin I Total Protein 7.8 Albumin 3.8 Globulin 4.0 Albumin/Globulin Ratio 1.0 Lipase 55 L Diagnostic Findings Telemetry personally reviewed: Sinus rhythm. No arrhythmia. ECG personally reviewed: ECG 10/29/2020: Sinus rhythm 68 beats per minute. Normal ECG. KUB 10/28/2020: No evidence for bowel obstruction. Moderate stool within the proximal colon. Medications Administered Current Inpatient Medications Acetaminophen (Acetaminophen 325 Mg Tab) 650 mg PO Q4H PRN PRN Reason: Pain or Fever Stop: 11/26/20 17:02 Last Admin: 10/28/20 15:58 Dose: 650 mg Documented by: Al Hydrox/Mg Hydrox/Simethicone (Aluminum/Magnesium/Simeth (Maalox Max) 30 Ml Udc) 15 ml PO Q6H PRN PRN Reason: Dyspepsia Stop: 11/27/20 18:29 Alprazolam (Alprazolam 0.5 Mg Tablet) 0.5 mg PO TID PRN PRN Reason: Anxiety Stop: 11/27/20 23:00 Last Admin: 10/28/20 23:22 Dose: 0.5 mg Documented by: Atenolol (Atenolol 25 Mg Tablet) 25 mg PO DAILY TAM Stop: 11/27/20 08:59 Last Admin: 10/29/20 07:57 Dose: 25 mg Documented by: Capsaicin (Capsaicin Cr 0.075% 60 Gm Tube) 1 appln EXT Q6H PRN PRN Reason: Abdominal pain Stop: 11/26/20 22:34 Last Admin: 10/28/20 00:54 Dose: 1 appln Documented by: Dextrose (Dextrose 50% 50 Ml Syringe) 25 - 50 ml IV UD PRN; Protocol PRN Reason: Hypoglycemia Protocol Stop: 11/27/20 10:38 Docusate Sodium (Docusate Sodium 100 Mg Cap) 100 mg PO BID TAM Stop: 11/27/20 20:59 Last Admin: 10/29/20 07:57 Dose: 100 mg Documented by: Glucagon (Glucagon For Inj 1 Mg Vial) 1 mg SQ UD PRN; Protocol PRN Reason: Hypoglycemia Protocol Stop: 11/27/20 10:38 Glucose (Glucose 10 Tabs/Tube) 4 - 8 tabs PO UD PRN; Protocol PRN Reason: Hypoglycemia Protocol Stop: 11/27/20 10:38 Glucose (Glucose 40% Gel 15 Gm Tube) 15 - 30 gm PO UD PRN; Protocol PRN Reason: Hypoglycemia Protocol Stop: 11/27/20 10:38 Hydralazine HCl (Hydralazine Hcl 20 Mg/Ml Vial) 10 mg IV Q4H PRN PRN Reason: sBP > 160 Stop: 11/26/20 17:02 Last Admin: 10/27/20 21:40 Dose: 10 mg Documented by: Hydromorphone HCl (Hydromorphone Inj 1 Mg/Ml Syringe) 1 mg IV Q4H PRN PRN Reason: Pain Stop: 11/10/20 22:34 Last Admin: 10/28/20 21:20 Dose: 1 mg Documented by: Promethazine HCl 25 mg/ Sodium (Chloride) 51 mls @ 204 mls/hr IV Q6H PRN PRN Reason: Nausea And Vomiting Stop: 11/26/20 19:03 Last Infusion: 10/29/20 08:33 Dose: Infused Documented by: Potassium Chloride/Sodium Chloride (Normal Saline W/20 Meq Kcl) 20 meq in 1,000 mls @ 80 mls/hr IV .[id number] [facility] Stop: 11/27/20 10:59 Last Admin: 10/28/20 23:22 Dose: 80 mls/hr Documented by: Cefepime HCl 2,000 mg/ Syringe 20 mls @ 5 mls/min IV Q12 TAM; Protocol Stop: 11/08/20 09:29 Last Admin: 10/29/20 09:39 Dose: 5 mls/min Documented by: Metronidazole (Flagyl) 500 mg in 100 mls @ 100 mls/hr IV Q8H TAM Stop: 11/08/20 09:29 Last Infusion: 10/29/20 10:58 Dose: Infused Documented by: Insulin Aspart (Insulin Aspart 100 Units/Ml 3 Ml Pen) 0 units SC ACHS [facility] Stop: 11/27/20 11:29 Last Admin: 10/29/20 08:01 Dose: Not Given Documented by: Labetalol HCl (Labetalol Hcl Iv 5 Mg/Ml 20ml) 10 mg IV Q2H PRN PRN Reason: sBP > 180 Stop: 11/26/20 17:02 Last Admin: 10/28/20 03:17 Dose: 10 mg Documented by: Lisinopril (Lisinopril 40 Mg Tab) 40 mg PO QAM [facility] Stop: 11/29/20 08:59 Lisinopril (Lisinopril 20 Mg Tab) 20 mg PO NOW ONE Stop: 10/29/20 12:01 Miscellaneous (Remove Nicoderm Patch) 1 ea N/A DAILY@0859 [facility] Stop: 11/28/20 08:58 Last Admin: 10/29/20 07:58 Dose: 1 ea Documented by: Miscellaneous (Carbohydrates For Hypoglycemia ) 15 - 30 gm PO UD PRN PRN Reason: Hypoglycemia Protocol Stop: 11/27/20 10:38 Nicotine (Nicotine 21 Mg/24 Hr Tdsy) 21 mg TD [facility] Stop: 11/27/20 10:44 Last Admin: 10/29/20 07:58 Dose: 21 mg Documented by: Nitroglycerin (Nitroglycerin 2% Ointment 30gm Tube) 2 inch EXT Q6H [facility] Stop: 11/26/20 20:14 Last Admin: 10/29/20 08:00 Dose: 2 inch Documented by: Nitroglycerin (Nitroglycerin Sl 0.4 Mg/Tab Tab) 0.4 mg SL PRN PRN PRN Reason: Chest Pain Stop: 11/27/20 11:30 Ondansetron HCl (Ondansetron Inj 2 Mg/Ml 2 Ml Vial) 4 mg IV Q4H PRN PRN Reason: Nausea or vomiting Stop: 11/26/20 19:01 Last Admin: 10/28/20 21:20 Dose: 4 mg Documented by: Pantoprazole Sodium (Pantoprazole 40 Mg Tab) 40 mg PO BID [facility] Stop: 11/27/20 18:59 Last Admin: 10/29/20 07:57 Dose: 40 mg Documented by: Polyethylene Glycol (Polyethylene (Miralax) 17 Gm Pack) 17 gm PO DAILY PRN PRN Reason: Constipation Stop: 11/27/20 18:29 Sennosides (Senna 8.6 Mg Tab) 8.6 mg PO QAM TAM Stop: 11/28/20 08:59 Last Admin: 10/29/20 07:58 Dose: 8.6 mg Documented by: Sucralfate (Sucralfate 1 Gm/10 Ml Udc) 1 gm PO QID PRN PRN Reason: Dyspepsia Stop: 11/27/20 18:34 Last Admin: 10/28/20 19:06 Dose: 1 gm Documented by: PG Care Time/CCT Total # of Minutes Spent Total Time Spent with Patient: Total time spent is greater than 50% in coordination of care (as documented) at patient's floor/unit and/or counseling patient: Coding Level of Care Code 34594 Subseq Hosp Care Lvl 3 Diagnoses Hypertensive emergency I16.1 Elevated troponin R77.8 Atypical chest pain R07.89 Current smoker F17.200 Nausea & vomiting R11.2
[2020-10-29] MEDS: NSS + 20MEQ KCL 20 MEQ/1,000 ML BAG IV SCH (11:44)
[2020-10-29] MEDS ORDERED: lisinopril 20 MG TAB PO ONE (12:00)
[2020-10-29] MEDS ORDERED: oxyCODONE HCL IR 5 MG TAB (IMMEDIATE RELEASE) PO PRN (12:17)
[2020-10-29] MEDS ORDERED: METOCLOPRAMIDE HCL INJ 5 MG/ML 2 ML VIAL IV STA (12:17)
[2020-10-29] MEDS: ALPRAZolam 0.5 MG TABLET PO PRN ×2 (13:43→21:14)
--- NOTE | 2020-10-29 13:47 | Magnetic Resonance Report ---
MR MRCP HISTORY: RUQ pain, leukocytosis, elevated bilirubin TECHNIQUE: MRCP the abdomen was performed without contrast according to standard departmental protoco l. COMPARISON STUDY: Abdomen and pelvis CT 10/27/2020. FINDINGS: The lung bases are clear. The liver, gallbladder, spleen, adrenal glands, and kidneys are w ithin normal limits. Normal caliber abdominal aorta. No retroperitoneal lymphadenopathy. Interval dev elopment of moderate thickening of the first and second portions of the duodenum with mild adjacent f at stranding. The pancreas appears to be unremarkable. Suboptimal evaluation of the 3-D MRCP sequence s due to motion artifact. However, the common bile duct appears to be normal in course and caliber. N o filling defects within the common bile duct. The distal main pancreatic duct is also normal in willian romulo. The proximal to mid main pancreatic duct is obscured by the motion artifact. IMPRESSION: 1. Interval bowel wall thickening involving the first and second portion of the duodenum with mild ad jacent fat stranding. This is consistent with a nonspecific duodenitis. A groove pancreatitis or unde rlying peptic ulcer disease could also have a similar appearance but are considered less likely. 2. Normal caliber common bile duct. No filling defects within the common bile duct. ACT 112: Negative or not required by law. Electronically signed by: Venkat Ramires M.D. 10/29/2020 1:46 PM
[2020-10-29] MEDS: hydrALAZINE HCL 20 MG/ML VIAL IV PRN ×2 (15:39→19:16)
[2020-10-29] MEDS ORDERED: LORazepam 0.5 MG/1 ML VIAL IV STA (16:10)
--- NOTE | 2020-10-29 16:11 | Hospitalist Progress Note ---
Date of Service October 29, 2020 Assessment & Plan (1) Duodenitis: seen on MRCP today, correlates with epigastric pain continue Protonix 40mg BID Cefepime and Flagyl IV, WBC is 17k pain control with Percocet, treat nausea PRN liquid diet for now will consult [facility], she had an EGD by Dr. Erickson in September 2019 (2) Hypertensive urgency: BP fluctuates, tends to go up with epigastric pain can give Hydralazine and Labetalol PRN continue her Atenolol pain control helps with pain no concerns for CAD, stop heparin drip could not tolerate nuclear stress test today (3) Leukocytosis: 17k, has duodenitis on MRCP give Cefepime and Flagyl for now Peripheral smear completed. No evidence of clear myelodysplasia We will check for JAK2 mutation to rule out polycythemia, essential thrombocythemia, myelofibrosis, and CML (4) Abdominal pain: likely due to duodenitis, seen on MRCP today No etiology seen on CT A/P and similar to prior occasions Percocet PRN (5) Elevated hemoglobin: No prior history per patient per chart review shows persistent elevation of hemoglobin No prior history of polycythemia Patient is not have a history of chronic hypoxia but is a smoker. She also has no history of tumor or other malignancy Continue to monitor. May consider outpatient evaluation by hematology (6) Hypokalemia: Potassium 4.4 this morning (7) Hypercalcemia: (8) Current smoker: (9) Hyperglycemia: (10) JR (obstructive sleep apnea): (11) DVT prophylaxis: Will initiate heparin 5000 units SQ every 8 hours Admission and Anticipated Discharge Date Admission Date: October 28, 2020 Subjective patient hypertensive this morning, but having a lot of pain at that time pain is epigastric, RUQ, associated with nausea no relief with Zofran or Phenergan, will try Reglan she went for nuclear perfusion stress test, could not tolerate, vomited after it was started d/w Dr. Garza, not concerned for CAD, can stop heparin drip reviewed chart, she had an EGD last September that was normal, no gastritis or PUB got labs, normal lipase, bili 1.1, AST and ALT normal, WBC elevated at 17k MRCP - evidence of duodenitis allow full liquid diet Percocet for pain, working well h/o smoking marijuana, may smoke more than she lets on give Ativan trial Review of Systems Review of Systems: All systems reviewed & are unremarkable except as noted in Subjective Physical Exam Constitutional: WD/WN, vitals as above Neck: trachea midline, no thyromegaly Respiratory: normal respiratory effort, lungs clear to auscultation Cardiovascular: RRR, no murmur, no edema Gastrointestinal (Abdomen): Inspection/Auscultation: abdomen normal to inspection and normal bowel sounds; abdomen not distended Percussion/Palpation: + abdomen tender (epigastric) and abdomen soft; no guarding, abdomen not rigid and no ascites Musculoskeletal: no cyanosis or clubbing, extremities motor strength 5/5 Skin: no rashes, warm and dry Neurologic: patellar DTR's 2+ bilat, sensation intact and PERRL, EOMI, accommodation nl, no face palsy, no dysarthria Psychiatric: A+Ox3, euthymic affect Lymphatic: no cervical or axillary lymphadenopathy Results & Data Results & Data ([facility]) Vital Signs (Past 12 Hours) Vital Signs Temp Pulse Resp BP BP Pulse Ox 10/29/20 15:24 36.6 C 64 20 200/110 H 96 10/29/20 11:08 36.7 C 67 22 183/101 H 97 10/29/20 09:16 154/110 H 10/29/20 08:50 232/136 H 215/126 H 10/29/20 08:00 232/136 H 10/29/20 07:58 36.6 C 87 22 220/110 H 97 10/29/20 05:42 36.8 C 78 12 184/138 H 94 Laboratory Results Laboratory Results - last 24 hr 10/28/20 10/29/20 10/29/20 20:28 00:31 01:46 WBC RBC Hgb Hct MCV MCH MCHC RDW Std Deviation RDW Coeff of Bo Plt Count MPV Immature Gran % (Auto) Neut % (Auto) Lymph % (Auto) [place] % (Auto) Eos % (Auto) Baso % (Auto) Neut # (Auto) Lymph # (Auto) [place] # (Auto) Eos # (Auto) Baso # (Auto) Immature Gran # (Auto) APTT Cancelled 74.7 H* PTT Ratio Cancelled 2.8 Sodium Potassium Chloride Carbon Dioxide Anion Gap BUN Creatinine Est Cr Clr Drug Dosing Est GFR ( Amer) Est GFR (Non-Af Amer) BUN/Creatinine Ratio Glucose POC Glucose 156 H Calcium Total Bilirubin AST ALT Alkaline Phosphatase Troponin I Total Protein Albumin Globulin Albumin/Globulin Ratio Lipase 10/29/20 10/29/20 10/29/20 06:15 06:51 07:22 WBC RBC Hgb Hct MCV MCH MCHC RDW Std Deviation RDW Coeff of Bo Plt Count MPV Immature Gran % (Auto) Neut % (Auto) Lymph % (Auto) [place] % (Auto) Eos % (Auto) Baso % (Auto) Neut # (Auto) Lymph # (Auto) [place] # (Auto) Eos # (Auto) Baso # (Auto) Immature Gran # (Auto) APTT PTT Ratio Sodium Potassium Chloride Carbon Dioxide Anion Gap BUN Creatinine Est Cr Clr Drug Dosing Est GFR ( Amer) Est GFR (Non-Af Amer) BUN/Creatinine Ratio Glucose POC Glucose 137 H Calcium Total Bilirubin AST ALT Alkaline Phosphatase Troponin I Cancelled 0.021 Total Protein Albumin Globulin Albumin/Globulin Ratio Lipase 10/29/20 10/29/20 10/29/20 09:17 09:17 11:08 WBC 17.52 H RBC 5.90 H Hgb 17.8 H Hct 50.4 H MCV 85.4 MCH 30.2 MCHC 35.3 RDW Std Deviation 44.7 RDW Coeff of Bo 14.4 Plt Count 288 MPV 11.0 H Immature Gran % (Auto) 0.3 Neut % (Auto) 82.8 Lymph % (Auto) 10.7 [place] % (Auto) 5.9 Eos % (Auto) 0.1 Baso % (Auto) 0.2 Neut # (Auto) 14.50 H Lymph # (Auto) 1.88 [place] # (Auto) 1.04 H Eos # (Auto) 0.01 Baso # (Auto) 0.03 Immature Gran # (Auto) 0.06 H APTT PTT Ratio Sodium 135 L Potassium 4.4 D Chloride 106 Carbon Dioxide 24 Anion Gap 5.0 BUN 21 H Creatinine 0.83 D Est Cr Clr Drug Dosing 87.6 Est GFR ( Amer) 95.3 Est GFR (Non-Af Amer) 82.2 BUN/Creatinine Ratio 25.9 H Glucose 144 H POC Glucose 113 H Calcium 8.7 Total Bilirubin 1.1 H AST 13 L ALT 22 Alkaline Phosphatase 51 Troponin I Total Protein 7.8 Albumin 3.8 Globulin 4.0 Albumin/Globulin Ratio 1.0 Lipase 55 L Diagnostic Findings MRCP IMPRESSION: 1. Interval bowel wall thickening involving the first and second portion of the duodenum with mild adjacent fat stranding. This is consistent with a nonspecific duodenitis. A groove pancreatitis or underlying peptic ulcer disease could also have a similar appearance but are considered less likely. 2. Normal caliber common bile duct. No filling defects within the common bile duct. Medications Administered Current Inpatient Medications Acetaminophen (Acetaminophen 325 Mg Tab) 650 mg PO Q4H PRN PRN Reason: Pain or Fever Stop: 11/26/20 17:02 Last Admin: 10/28/20 15:58 Dose: 650 mg Documented by: Al Hydrox/Mg Hydrox/Simethicone (Aluminum/Magnesium/Simeth (Maalox Max) 30 Ml Udc) 15 ml PO Q6H PRN PRN Reason: Dyspepsia Stop: 11/27/20 18:29 Alprazolam (Alprazolam 0.5 Mg Tablet) 0.5 mg PO TID PRN PRN Reason: Anxiety Stop: 11/27/20 23:00 Last Admin: 10/29/20 13:43 Dose: 0.5 mg Documented by: Atenolol (Atenolol 25 Mg Tablet) 25 mg PO DAILY [facility] Stop: 11/27/20 08:59 Last Admin: 10/29/20 07:57 Dose: 25 mg Documented by: Capsaicin (Capsaicin Cr 0.075% 60 Gm Tube) 1 appln EXT Q6H PRN PRN Reason: Abdominal pain Stop: 11/26/20 22:34 Last Admin: 10/28/20 00:54 Dose: 1 appln Documented by: Dextrose (Dextrose 50% 50 Ml Syringe) 25 - 50 ml IV UD PRN; Protocol PRN Reason: Hypoglycemia Protocol Stop: 11/27/20 10:38 Docusate Sodium (Docusate Sodium 100 Mg Cap) 100 mg PO BID TAM Stop: 11/27/20 20:59 Last Admin: 10/29/20 07:57 Dose: 100 mg Documented by: Glucagon (Glucagon For Inj 1 Mg Vial) 1 mg SQ UD PRN; Protocol PRN Reason: Hypoglycemia Protocol Stop: 11/27/20 10:38 Glucose (Glucose 10 Tabs/Tube) 4 - 8 tabs PO UD PRN; Protocol PRN Reason: Hypoglycemia Protocol Stop: 11/27/20 10:38 Glucose (Glucose 40% Gel 15 Gm Tube) 15 - 30 gm PO UD PRN; Protocol PRN Reason: Hypoglycemia Protocol Stop: 11/27/20 10:38 Hydralazine HCl (Hydralazine Hcl 20 Mg/Ml Vial) 10 mg IV Q4H PRN PRN Reason: sBP > 160 Stop: 11/26/20 17:02 Last Admin: 10/29/20 15:39 Dose: 10 mg Documented by: Hydromorphone HCl (Hydromorphone Inj 1 Mg/Ml Syringe) 1 mg IV Q4H PRN PRN Reason: Pain Stop: 11/10/20 22:34 Last Admin: 10/28/20 21:20 Dose: 1 mg Documented by: Promethazine HCl 25 mg/ Sodium (Chloride) 51 mls @ 204 mls/hr IV Q6H PRN PRN Reason: Nausea And Vomiting Stop: 11/26/20 19:03 Last Infusion: 10/29/20 08:33 Dose: Infused Documented by: Potassium Chloride/Sodium Chloride (Normal Saline W/20 Meq Kcl) 20 meq in 1,000 mls @ 80 mls/hr IV .[id number] TAM Stop: 11/27/20 10:59 Last Admin: 10/29/20 11:44 Dose: 80 mls/hr Documented by: Cefepime HCl 2,000 mg/ Syringe 20 mls @ 5 mls/min IV Q12 TAM; Protocol Stop: 11/08/20 09:29 Last Admin: 10/29/20 09:39 Dose: 5 mls/min Documented by: Metronidazole (Flagyl) 500 mg in 100 mls @ 100 mls/hr IV Q8H TAM Stop: 11/08/20 09:29 Last Infusion: 10/29/20 10:58 Dose: Infused Documented by: Lorazepam (Ativan) 0.5 mg in 1 mls @ 1 mls/min IV NOW STA Stop: 10/29/20 16:11 Insulin Aspart (Insulin Aspart 100 Units/Ml 3 Ml Pen) 0 units SC ACHS TAM Stop: 11/27/20 11:29 Last Admin: 10/29/20 11:16 Dose: Not Given Documented by: Labetalol HCl (Labetalol Hcl Iv 5 Mg/Ml 20ml) 10 mg IV Q2H PRN PRN Reason: sBP > 180 Stop: 11/26/20 17:02 Last Admin: 10/28/20 03:17 Dose: 10 mg Documented by: Lisinopril (Lisinopril 40 Mg Tab) 40 mg PO QAM [facility] Stop: 11/29/20 08:59 Miscellaneous (Remove Nicoderm Patch) 1 ea N/A DAILY@0859 [facility] Stop: 11/28/20 08:58 Last Admin: 10/29/20 07:58 Dose: 1 ea Documented by: Miscellaneous (Carbohydrates For Hypoglycemia ) 15 - 30 gm PO UD PRN PRN Reason: Hypoglycemia Protocol Stop: 11/27/20 10:38 Nicotine (Nicotine 21 Mg/24 Hr Tdsy) [address] [facility] Stop: 11/27/20 10:44 Last Admin: 10/29/20 07:58 Dose: 21 mg Documented by: Nitroglycerin (Nitroglycerin 2% Ointment 30gm Tube) 2 inch EXT Q6H [facility] Stop: 11/26/20 20:14 Last Admin: 10/29/20 13:43 Dose: 2 inch Documented by: Nitroglycerin (Nitroglycerin Sl 0.4 Mg/Tab Tab) 0.4 mg SL PRN PRN PRN Reason: Chest Pain Stop: 11/27/20 11:30 Ondansetron HCl (Ondansetron Inj 2 Mg/Ml 2 Ml Vial) 4 mg IV Q4H PRN PRN Reason: Nausea or vomiting Stop: 11/26/20 19:01 Last Admin: 10/28/20 21:20 Dose: 4 mg Documented by: Oxycodone HCl (Oxycodone Hcl Ir 5 Mg Tab (Immediate Release)) 5 mg PO Q6 PRN PRN Reason: Pain Stop: 11/12/20 12:16 Last Admin: 10/29/20 13:43 Dose: 5 mg Documented by: Pantoprazole Sodium (Pantoprazole 40 Mg Tab) 40 mg PO BID [facility] Stop: 11/27/20 18:59 Last Admin: 10/29/20 07:57 Dose: 40 mg Documented by: Polyethylene Glycol (Polyethylene (Miralax) 17 Gm Pack) 17 gm PO DAILY PRN PRN Reason: Constipation Stop: 11/27/20 18:29 Sennosides (Senna 8.6 Mg Tab) 8.6 mg PO QAM TAM Stop: 11/28/20 08:59 Last Admin: 10/29/20 07:58 Dose: 8.6 mg Documented by: Sucralfate (Sucralfate 1 Gm/10 Ml Udc) 1 gm PO QID PRN PRN Reason: Dyspepsia Stop: 11/27/20 18:34 Last Admin: 10/28/20 19:06 Dose: 1 gm Documented by: PG Care Time/CCT Total # of Minutes Spent Total Time Spent with Patient: Total time spent is greater than 50% in coordination of care (as documented) at patient's floor/unit and/or counseling patient: Coding Level of Care Code 42944 Subseq Hosp Care Lvl 3 Diagnoses Duodenitis K29.80 Hypertensive urgency I16.0 Leukocytosis D72.829 Leukocytosis type: unspecified Abdominal pain R10.84 Abdominal location: generalized Elevated hemoglobin D58.2 Hypokalemia E87.6 Hypercalcemia E83.52 Current smoker F17.200 Hyperglycemia R73.9 JR (obstructive sleep apnea) G47.33 DVT prophylaxis Z29.9 (1) Leukocytosis Leukocytosis type: unspecified Qualified Code(s): D72.829 - Elevated white blood cell count, unspecified (2) Abdominal pain Abdominal location: generalized Qualified Code(s): R10.84 - Generalized abdominal pain
[2020-10-29] MEDS: oxyCODONE HCL IR 5 MG TAB (IMMEDIATE RELEASE) PO PRN ×2 (17:26→21:00)
[2020-10-29] MEDS: ONDANSETRON INJ 2 MG/ML 2 ML VIAL IV PRN (19:21)
[2020-10-30] MEDS: oxyCODONE HCL IR 5 MG TAB (IMMEDIATE RELEASE) PO PRN ×4 (01:42→21:24)
[2020-10-30] MEDS: NSS + 20MEQ KCL 20 MEQ/1,000 ML BAG IV SCH ×2 (01:42→16:42)
[2020-10-30] MEDS: metroNIDAZOLE 500 MG/100 ML BAG IV SCH ×3 (01:42→18:09)
[2020-10-30] MEDS: NITROGLYCERIN 2% OINTMENT 30GM TUBE EXT SCH ×4 (02:14→20:21)
--- NOTE | 2020-10-30 06:44 | Electrocardiogram Report ---
Test Reason : Blood Pressure : / mmHG Vent. Rate : 068 BPM Atrial Rate : 068 BPM P-R Int : 136 ms QRS Dur : 094 ms QT Int : 432 ms P-R-T Axes : 029 -02 046 degrees QTc Int : 459 ms Normal sinus rhythm Normal ECG When compared with ECG of 28-Oct-2020 16:39 R wave progression has improved Confirmed by Esvin Kam ([id number]) on 10/30/2020 6:43:53 AM Referred By: REFERRED SELF Confirmed By:Esvin Kam
[2020-10-30 07:01] LABS: Basophils # (auto) 0.03 K/uL (0-0.2); Basophils % (auto) 0.2 %; Eosinophils # (auto) 0.08 K/uL (0-0.5); Eosinophils % (auto) 0.6 %; Hematocrit (blood only) 45.1 % (37-47); Hemoglobin 15.7 g/dL (12.0-16.0); Immature Granulocytes # (auto) 0.02 K/uL (0.00-0.02); Immature Granulocytes % (auto) 0.1 %; Lymphocytes # (auto) 3.44 K/uL (1.2-3.4); Lymphocytes % (auto) 23.9 %; Mean Corpuscular Hemoglobin 30.1 pg (25-34); Mean Corpuscular Hgb Conc 34.8 g/dL (32-36); Mean Corpuscular Volume 86.6 fL (80-100); Mean Platelet Volume 10.7 fL (7.4-10.4); Monocytes # (auto) 1.14 K/uL (0.11-0.59); Monocytes % (auto) 7.9 %; Neutrophils # (auto) 9.68 K/uL (1.4-6.5); Neutrophils % (auto) 67.3 %; Platelet Count 247 K/uL (130-400); RDW Coefficient of Variation 14.8 % (11.5-14.5); RDW Standard Deviation 47.4 fL (36.4-46.3); Red Blood Count 5.21 M/uL (4.2-5.4); White Blood Count 14.39 K/uL (4.8-10.8)
[2020-10-30 07:32] LABS: Albumin Level 3.2 gm/dl (3.4-5.0); BUN Creatinine Ratio 24.2 (10-20); Calcium 8.7 mg/dl (8.5-10.1); Creatinine Clr Calc Pharmacy 76.7 ml/min; Est GFR (African American) 80.9; Est GFR (Non-African American) 69.8; Potassium 4.4 mmol/L (3.5-5.1)
[2020-10-30 07:39] LABS: Albumin Globulin Ratio 1.1 (0.9-2); Total Protein 6.2 gm/dl (6.4-8.2)
[2020-10-30] MEDS: INSULIN ASPART 100 UNITS/ML 3 ML PEN SC SCH ×4 (08:00→21:00)
[2020-10-30] MEDS: SENNA 8.6 MG TAB PO SCH (08:25)
[2020-10-30] MEDS: NICOTINE 21 MG/24 HR TDSY TD SCH (08:25)
[2020-10-30] MEDS: ATENOLOL 25 MG TABLET PO SCH (08:26)
[2020-10-30] MEDS: PANTOprazole 40 MG TAB PO SCH ×2 (08:26→20:07)
[2020-10-30] MEDS: DOCUSATE SODIUM 100 MG CAP PO SCH ×2 (08:26→20:07)
[2020-10-30] MEDS: lisinopril 40 MG TAB PO SCH (08:26)
[2020-10-30] MEDS: CEFEPIME 2,000 MG in SYRINGE 0 ML IV SCH ×2 (08:36→20:05)
[2020-10-30] MEDS: PROMETHAZINE HCL 25 MG in SODIUM CHLORIDE 0.9% 50 ML IV PRN ×2 (13:36→20:15)
--- NOTE | 2020-10-30 15:19 | Hospitalist Progress Note ---
Date of Service October 30, 2020 Assessment & Plan (1) Duodenitis: seen on MRCP, correlates with epigastric pain continue Protonix 40mg BID Cefepime and Flagyl IV, WBC is down to 14k from 17k pain control with Percocet, treat nausea PRN sleeping a lot today liquid diet for now will consult [facility], she had an EGD by Dr. Erickson in September 2019 awaiting their recommendations (2) Hypertensive urgency: BP fluctuates, tends to go up with epigastric pain can give Hydralazine and Labetalol PRN continue her Atenolol pain control helps with pain no concerns for CAD, stop heparin drip could not tolerate nuclear stress test still with nitro patch q6, working well will start Imdur 30mg daily tomorrow morning (3) Leukocytosis: down to 14k, has duodenitis on MRCP continue Cefepime and Flagyl for now Peripheral smear completed. No evidence of clear myelodysplasia We will check for JAK2 mutation to rule out polycythemia, essential thrombocythemia, myelofibrosis, and CML (4) Abdominal pain: likely due to duodenitis, seen on MRCP today No etiology seen on CT A/P and similar to prior occasions Percocet PRN (5) Elevated hemoglobin: No prior history per patient per chart review shows persistent elevation of hemoglobin No prior history of polycythemia Patient is not have a history of chronic hypoxia but is a smoker. She also has no history of tumor or other malignancy Continue to monitor. May consider outpatient evaluation by hematology (6) Hypokalemia: Potassium 4.4 again this morning (7) Hypercalcemia: (8) Current smoker: (9) Hyperglycemia: (10) JR (obstructive sleep apnea): (11) DVT prophylaxis: Will initiate heparin 5000 units SQ every 8 hours Admission and Anticipated Discharge Date Admission Date: October 28, 2020 Subjective patient sleeping when I entered the room, woke her up and she said she was okay had some nausea earlier, better with Phenergan Oxycodone working for pain labs reviewed, WBC down to 14k from 17k Cr is 0.9, K 4.4, bili and AST/ALT normal she says that she does not smoke marijuana daily, maybe 1-2 times a month she says that she was told in the past that she had a lot of ulcers in her stomach prior EGD in our records from 09/2019 showed no ulcers Review of Systems Review of Systems: All systems reviewed & are unremarkable except as noted in Subjective Respiratory: no cough and no dyspnea Cardiovascular: no chest pain and no edema Gastrointestinal: + abdominal pain (epigastric) and + nausea; no vomiting, no constipation and no diarrhea/loose stools Physical Exam Constitutional: WD/WN, vitals as above Neck: trachea midline, no thyromegaly Respiratory: normal respiratory effort, lungs clear to auscultation Cardiovascular: RRR, no murmur, no edema Gastrointestinal (Abdomen): Inspection/Auscultation: abdomen normal to inspection and normal bowel sounds; abdomen not distended Percussion/Palpation: + abdomen tender (epigastric) and abdomen soft; no guarding, abdomen not rigid and no ascites Musculoskeletal: no cyanosis or clubbing, extremities motor strength 5/5 Skin: no rashes, warm and dry Neurologic: patellar DTR's 2+ bilat, sensation intact and PERRL, EOMI, accommodation nl, no face palsy, no dysarthria Psychiatric: A+Ox3, euthymic affect Lymphatic: no cervical or axillary lymphadenopathy Results & Data Results & Data ([facility]) Vital Signs (Past 12 Hours) Vital Signs Temp Pulse Pulse Resp BP Pulse Ox 10/30/20 14:53 69 10/30/20 10:59 36.6 C 93 H 20 133/70 93 10/30/20 08:00 88 10/30/20 07:26 36.7 C 58 L 19 147/89 H 92 Laboratory Results Laboratory Results - last 24 hr 10/29/20 10/29/20 10/30/20 16:16 20:18 06:30 WBC 14.39 H RBC 5.21 Hgb 15.7 Hct 45.1 MCV 86.6 MCH 30.1 MCHC 34.8 RDW Std Deviation 47.4 H RDW Coeff of Bo 14.8 H Plt Count 247 MPV 10.7 H Immature Gran % (Auto) 0.1 Neut % (Auto) 67.3 Lymph % (Auto) 23.9 [place] % (Auto) 7.9 Eos % (Auto) 0.6 Baso % (Auto) 0.2 Neut # (Auto) 9.68 H Lymph # (Auto) 3.44 H [place] # (Auto) 1.14 H Eos # (Auto) 0.08 Baso # (Auto) 0.03 Immature Gran # (Auto) 0.02 Sodium Potassium Chloride Carbon Dioxide Anion Gap BUN Creatinine Est Cr Clr Drug Dosing Est GFR ( Amer) Est GFR (Non-Af Amer) BUN/Creatinine Ratio Glucose POC Glucose 123 H 118 H Calcium Total Bilirubin AST ALT Alkaline Phosphatase Total Protein Albumin Globulin Albumin/Globulin Ratio 10/30/20 10/30/20 10/30/20 06:30 07:24 11:20 WBC RBC Hgb Hct MCV MCH MCHC RDW Std Deviation RDW Coeff of Bo Plt Count MPV Immature Gran % (Auto) Neut % (Auto) Lymph % (Auto) [place] % (Auto) Eos % (Auto) Baso % (Auto) Neut # (Auto) Lymph # (Auto) [place] # (Auto) Eos # (Auto) Baso # (Auto) Immature Gran # (Auto) Sodium 136 Potassium 4.4 Chloride 108 H Carbon Dioxide 21 Anion Gap 7.0 BUN 23 H Creatinine 0.95 Est Cr Clr Drug Dosing 76.7 Est GFR ( Amer) 80.9 Est GFR (Non-Af Amer) 69.8 BUN/Creatinine Ratio 24.2 H Glucose 103 H POC Glucose 103 H 92 Calcium 8.7 Total Bilirubin 1.0 AST 6 L ALT 14 Alkaline Phosphatase 38 L Total Protein 6.2 L D Albumin 3.2 L Globulin 3.0 Albumin/Globulin Ratio 1.1 Medications Administered Current Inpatient Medications Acetaminophen (Acetaminophen 325 Mg Tab) 650 mg PO Q4H PRN PRN Reason: Pain or Fever Stop: 11/26/20 17:02 Last Admin: 10/28/20 15:58 Dose: 650 mg Documented by: Al Hydrox/Mg Hydrox/Simethicone (Aluminum/Magnesium/Simeth (Maalox Max) 30 Ml Udc) 15 ml PO Q6H PRN PRN Reason: Dyspepsia Stop: 11/27/20 18:29 Alprazolam (Alprazolam 0.5 Mg Tablet) 0.5 mg PO TID PRN PRN Reason: Anxiety Stop: 11/27/20 23:00 Last Admin: 10/29/20 21:14 Dose: 0.5 mg Documented by: Atenolol (Atenolol 25 Mg Tablet) 25 mg PO DAILY TAM Stop: 11/27/20 08:59 Last Admin: 10/30/20 08:26 Dose: 25 mg Documented by: Capsaicin (Capsaicin Cr 0.075% 60 Gm Tube) 1 appln EXT Q6H PRN PRN Reason: Abdominal pain Stop: 11/26/20 22:34 Last Admin: 10/28/20 00:54 Dose: 1 appln Documented by: Dextrose (Dextrose 50% 50 Ml Syringe) 25 - 50 ml IV UD PRN; Protocol PRN Reason: Hypoglycemia Protocol Stop: 11/27/20 10:38 Docusate Sodium (Docusate Sodium 100 Mg Cap) 100 mg PO BID [facility] Stop: 11/27/20 20:59 Last Admin: 10/30/20 08:26 Dose: 100 mg Documented by: Glucagon (Glucagon For Inj 1 Mg Vial) 1 mg SQ UD PRN; Protocol PRN Reason: Hypoglycemia Protocol Stop: 11/27/20 10:38 Glucose (Glucose 10 Tabs/Tube) 4 - 8 tabs PO UD PRN; Protocol PRN Reason: Hypoglycemia Protocol Stop: 11/27/20 10:38 Glucose (Glucose 40% Gel 15 Gm Tube) 15 - 30 gm PO UD PRN; Protocol PRN Reason: Hypoglycemia Protocol Stop: 11/27/20 10:38 Hydralazine HCl (Hydralazine Hcl 20 Mg/Ml Vial) 10 mg IV Q4H PRN PRN Reason: sBP > 160 Stop: 11/26/20 17:02 Last Admin: 10/29/20 19:16 Dose: 10 mg Documented by: Hydromorphone HCl (Hydromorphone Inj 1 Mg/Ml Syringe) 1 mg IV Q4H PRN PRN Reason: Pain Stop: 11/10/20 22:34 Last Admin: 10/28/20 21:20 Dose: 1 mg Documented by: Promethazine HCl 25 mg/ Sodium (Chloride) 51 mls @ 204 mls/hr IV Q6H PRN PRN Reason: Nausea And Vomiting Stop: 11/26/20 19:03 Last Infusion: 10/30/20 13:59 Dose: Infused Documented by: Potassium Chloride/Sodium Chloride (Normal Saline W/20 Meq Kcl) 20 meq in 1,000 mls @ 80 mls/hr IV .[id number] [facility] Stop: 11/27/20 10:59 Last Admin: 10/30/20 01:42 Dose: 80 mls/hr Documented by: Cefepime HCl 2,000 mg/ Syringe 20 mls @ 5 mls/min IV Q12 [facility]; Protocol Stop: 11/08/20 09:29 Last Admin: 10/30/20 08:36 Dose: 5 mls/min Documented by: Metronidazole (Flagyl) 500 mg in 100 mls @ 100 mls/hr IV Q8H [facility] Stop: 11/08/20 09:29 Last Infusion: 10/30/20 12:17 Dose: Infused Documented by: Insulin Aspart (Insulin Aspart 100 Units/Ml 3 Ml Pen) 0 units SC ACHS [facility] Stop: 11/27/20 11:29 Last Admin: 10/30/20 11:37 Dose: Not Given Documented by: Isosorbide Mononitrate (Isosorbide [place] Extended Rel 30 Mg Tabcr) [facility] Stop: 11/30/20 08:59 Labetalol HCl (Labetalol Hcl Iv 5 Mg/Ml 20ml) 10 mg IV Q2H PRN PRN Reason: sBP > 180 Stop: 11/26/20 17:02 Last Admin: 10/28/20 03:17 Dose: 10 mg Documented by: Lisinopril (Lisinopril 40 Mg Tab) 40 mg PO [facility] Stop: 11/29/20 08:59 Last Admin: 10/30/20 08:26 Dose: 40 mg Documented by: Miscellaneous (Remove Nicoderm Patch) 1 ea N/A DAILY@0859 [facility] Stop: 11/28/20 08:58 Last Admin: 10/30/20 08:27 Dose: 1 ea Documented by: Miscellaneous (Carbohydrates For Hypoglycemia ) 15 - 30 gm PO UD PRN PRN Reason: Hypoglycemia Protocol Stop: 11/27/20 10:38 Nicotine (Nicotine 21 Mg/24 Hr Tdsy) 21 mg [facility] Stop: 11/27/20 10:44 Last Admin: 10/30/20 08:25 Dose: 21 mg Documented by: Nitroglycerin (Nitroglycerin 2% Ointment 30gm Tube) 2 inch EXT Q6H [facility] Stop: 10/31/20 04:00 Last Admin: 10/30/20 13:36 Dose: 2 inch Documented by: Nitroglycerin (Nitroglycerin Sl 0.4 Mg/Tab Tab) 0.4 mg SL PRN PRN PRN Reason: Chest Pain Stop: 11/27/20 11:30 Ondansetron HCl (Ondansetron Inj 2 Mg/Ml 2 Ml Vial) 4 mg IV Q4H PRN PRN Reason: Nausea or vomiting Stop: 11/26/20 19:01 Last Admin: 10/29/20 19:21 Dose: 4 mg Documented by: Oxycodone HCl (Oxycodone Hcl Ir 5 Mg Tab (Immediate Release)) 5 mg PO Q4H PRN PRN Reason: Pain Stop: 11/12/20 17:10 Last Admin: 10/30/20 08:42 Dose: 5 mg Documented by: Pantoprazole Sodium (Pantoprazole 40 Mg Tab) 40 mg PO BID [facility] Stop: 11/27/20 18:59 Last Admin: 10/30/20 08:26 Dose: 40 mg Documented by: Polyethylene Glycol (Polyethylene (Miralax) 17 Gm Pack) 17 gm PO DAILY PRN PRN Reason: Constipation Stop: 11/27/20 18:29 Sennosides (Senna 8.6 Mg Tab) 8.6 mg PO QAM [facility] Stop: 11/28/20 08:59 Last Admin: 10/30/20 08:25 Dose: 8.6 mg Documented by: Sucralfate (Sucralfate 1 Gm/10 Ml Udc) 1 gm PO QID PRN PRN Reason: Dyspepsia Stop: 11/27/20 18:34 Last Admin: 10/28/20 19:06 Dose: 1 gm Documented by: PG Care Time/CCT Total # of Minutes Spent Total Time Spent with Patient: Total time spent is greater than 50% in coordination of care (as documented) at patient's floor/unit and/or counseling patient: Coding Level of Care Code 31985 Subseq Hosp Care Lvl 2 Diagnoses Duodenitis K29.80 Hypertensive urgency I16.0 Leukocytosis D72.829 Leukocytosis type: unspecified Abdominal pain R10.84 Abdominal location: generalized Elevated hemoglobin D58.2 Hypokalemia E87.6 Hypercalcemia E83.52 Current smoker F17.200 Hyperglycemia R73.9 JR (obstructive sleep apnea) G47.33 DVT prophylaxis Z29.9 (1) Leukocytosis Leukocytosis type: unspecified Qualified Code(s): D72.829 - Elevated white blood cell count, unspecified (2) Abdominal pain Abdominal location: generalized Qualified Code(s): R10.84 - Generalized abdominal pain
[2020-10-30] MEDS: ALPRAZolam 0.5 MG TABLET PO PRN ×2 (16:41→21:24)
[2020-10-30] MEDS: ONDANSETRON INJ 2 MG/ML 2 ML VIAL IV PRN (23:41)
[2020-10-31] MEDS: metroNIDAZOLE 500 MG/100 ML BAG IV SCH ×2 (03:12→10:50)
[2020-10-31] MEDS: oxyCODONE HCL IR 5 MG TAB (IMMEDIATE RELEASE) PO PRN ×3 (03:14→12:14)
[2020-10-31] MEDS: NITROGLYCERIN 2% OINTMENT 30GM TUBE EXT SCH (03:18)
[2020-10-31] MEDS: INSULIN ASPART 100 UNITS/ML 3 ML PEN SC SCH ×2 (07:38→11:45)
[2020-10-31] MEDS: ALPRAZolam 0.5 MG TABLET PO PRN (07:44)
[2020-10-31] MEDS: NSS + 20MEQ KCL 20 MEQ/1,000 ML BAG IV SCH (07:46)
[2020-10-31] MEDS: PANTOprazole 40 MG TAB PO SCH (07:58)
[2020-10-31] MEDS: lisinopril 40 MG TAB PO SCH (07:58)
[2020-10-31] MEDS: SENNA 8.6 MG TAB PO SCH (07:58)
[2020-10-31] MEDS: ATENOLOL 25 MG TABLET PO SCH (07:59)
[2020-10-31] MEDS: DOCUSATE SODIUM 100 MG CAP PO SCH (07:59)
[2020-10-31] MEDS: NICOTINE 21 MG/24 HR TDSY TD SCH (07:59)
[2020-10-31] MEDS: CEFEPIME 2,000 MG in SYRINGE 0 ML IV SCH (08:02)
[2020-10-31 08:48] LABS: Basophils # (auto) 0.02 K/uL (0-0.2); Basophils % (auto) 0.3 %; Eosinophils # (auto) 0.11 K/uL (0-0.5); Eosinophils % (auto) 1.5 %; Hematocrit (blood only) 40.1 % (37-47); Hemoglobin 13.7 g/dL (12.0-16.0); Immature Granulocytes # (auto) 0.01 K/uL (0.00-0.02); Immature Granulocytes % (auto) 0.1 %; Lymphocytes # (auto) 1.63 K/uL (1.2-3.4); Lymphocytes % (auto) 21.8 %; Mean Corpuscular Hgb Conc 34.2 g/dL (32-36); Mean Corpuscular Volume 87.7 fL (80-100); Mean Platelet Volume 10.5 fL (7.4-10.4); Monocytes # (auto) 0.58 K/uL (0.11-0.59); Monocytes % (auto) 7.8 %; Neutrophils # (auto) 5.12 K/uL (1.4-6.5); Neutrophils % (auto) 68.5 %; Platelet Count 177 K/uL (130-400); RDW Coefficient of Variation 14.6 % (11.5-14.5); Red Blood Count 4.57 M/uL (4.2-5.4); White Blood Count 7.47 K/uL (4.8-10.8)
[2020-10-31] MEDS ORDERED: ISOSORBIDE MONO EXTENDED REL 30 MG TABCR PO SCH (09:00)
[2020-10-31 09:29] LABS: Albumin Level 2.9 gm/dl (3.4-5.0); BUN Creatinine Ratio 12.8 (10-20); Bilirubin,Total 0.6 mg/dl (0.2-1); Calcium 8.6 mg/dl (8.5-10.1); Creatinine Clr Calc Pharmacy 77.4 ml/min; Est GFR (Non-African American) 70.7; Globulin 2.8 gm/dl (2.5-4.0); Potassium 4.3 mmol/L (3.5-5.1); Total Protein 5.7 gm/dl (6.4-8.2)
[2020-10-31] MEDS ORDERED: oxyCODONE/ACETAMINOPHEN 5mg/325mg TAB PO STA (12:12)
--- NOTE | 2020-10-31 12:50 | Discharge Summary ---
Date of Service October 31, 2020 Admission HPI Per Admitting Provider Charleen Mathis is a 50-year-old female with history of gastritis, marijuana use, hepatitis C, tobacco use, anxiety and atypical migraine who presents to the ER due to intractable vomiting and severe abdominal pain that started at 4 AM today. She has had multiple similar episodes of this most recently in July 2020 with associated hypertension. Her symptoms on this occasion for similarly to her hospitalization in September 2019 when her symptoms resolved with hypertensive urgency management. EGD on that occasion was unremarkable and gastroenterology felt her nausea and vomiting was secondary to her severe h ypertension. She reports feeling much worse on this occasion however. Abdominal pain is generalized, severity 10/10. She denies any abnormal foods or taken notes, recent travel or sick exposures. Last marijuana use was 1 month ago. In the ER she was noted to be extremely hypertensive with blood pressure 252/155 on arrival which was treated with hydralazine 10 mg IV in the ER without significant change. In addition she was given NSS 3L bolus, promethazine 25 mg IV, ondansetron 4 mg IV, Toradol 50 mg IV, lorazepam 0.5 mg IV, metoclopramide [address] abdomen/pelvis showed no acute infectious or inflammatory findings. Principal Diagnosis Epigastric pain, duodenitis Discharge Exam Constitutional WD/WN, vitals as above Neck trachea midline, no thyromegaly Respiratory normal respiratory effort, lungs clear to auscultation Cardiovascular RRR, no murmur, no edema Gastrointestinal (Abdomen) Inspection/Auscultation: abdomen normal to inspection and normal bowel sounds; abdomen not distended Percussion/Palpation: + abdomen tender (epigastric) and abdomen soft; no guarding, abdomen not rigid and no ascites Musculoskeletal no cyanosis or clubbing, extremities motor strength 5/5 Skin no rashes, warm and dry Neurologic patellar DTR's 2+ bilat, sensation intact and PERRL, EOMI, accommodation nl, no face palsy, no dysarthria Psychiatric A+Ox3, euthymic affect Lymphatic no cervical or axillary lymphadenopathy Discharge Data Allergies Allergy/AdvReac Type Severity Reaction Status Date / Time codeine Allergy Unknown GI SYMPTOMS Verified 10/27/20 17:59 tramadol Allergy Unknown GI SYMPTOMS Verified 10/27/20 17:59 morphine AdvReac Unknown N/V Verified 03/17/21 17:59 hydromorphone [From Dilaudid] AdvReac Nausea Verified 10/27/20 17:59 Consultations 10/27/20 16:49 ED Decision to Admit Stat 10/28/20 14:41 Consult Cardiology Routine 10/28/20 16:53 Consult Health Information Management Routine Ordered Studies 10/27/20 15:15 CT abd pelvis IV con only Stat 10/29/20 09:18 MR MRCP Urgent Hospital Course (1) Duodenitis: seen on MRCP, correlates with epigastric pain continue Protonix 40mg BID for one month then back to once a day Cefepime and Flagyl IV, WBC is down to 7k from 17k two days ago pain control with Oxycodone, treat nausea PRN liquid diet, advance as tolerated at home, keep bland diet for a few days EGD in September 2019 was normal discharge on Cipro/Flagyl for 5 more days, Protonix BID, advance diet (2) Hypertensive urgency: BP fluctuates, tends to go up with epigastric pain continue her Atenolol pain control helps with pain no concerns for CAD, stop heparin drip could not tolerate nuclear stress test still with nitro patch q6, working well will start Imdur 30mg daily tomorrow morning plan: discharge on Atenolol 25mg daily, Lisinopril 20mg daily, imdur 30mg daily (script sent) (3) Leukocytosis: down to 7k, has duodenitis on MRCP continue Cefepime and Flagyl for now, change to Cipro/Flagyl on discharge (4) Abdominal pain: likely due to duodenitis, seen on MRCP today No etiology seen on CT A/P and similar to prior occasions Percocet PRN (5) Elevated hemoglobin: No prior history per patient per chart review shows persistent elevation of hemoglobin No prior history of polycythemia Patient is not have a history of chronic hypoxia but is a smoker. She also has no history of tumor or other malignancy Continue to monitor. May consider outpatient evaluation by hematology (6) Hypokalemia: Potassium 4.4 again this morning (7) Hypercalcemia: (8) Current smoker: (9) Hyperglycemia: (10) JR (obstructive sleep apnea): (11) DVT prophylaxis: Will initiate heparin 5000 units SQ every 8 hours Total Time Total Time Spent Total Time Spent (In Minutes): 32 Total Time Includes: Examination of the Patient, Discharge Planning and Medication Reconciliation Discharge Plan Discharge Items Patient Disposition: Home - Self-Care Reason For Visit: HYPERTENSIVE URGENCY Discharge Diagnosis: Hypertensive urgency Duodenitis Condition on Discharge: Good Goals: complete course of antibiotics advance diet slowly take blood pressure medications Activity: Resume your previous activity Driving/Machine Use: do not drive while taking Percocet Weightbearing: Full weightbearing Non-emergency contact: Primary Care Provider Call non-emergency contact if: you have any medication questions, your symptoms worsen and your pain is not controlled Follow-up/Referrals: Kiersten Pitt PA-C [Primary Care Provider] - (this week) Diet: Heart Healthy Addtl Attending Provider Instructions: Medications: - CIPRO AND FLAGYL: antibiotics for duodenitis, take for 5 more days, can start this evening - IMDUR: new blood pressure medication, long acting nitroglycerin, working well, blood pressure stable - PROTONIX: please increase to twice a day for one month then reduce back to daily as you were previously taking - OXYCODONE: take one tablet as needed for epigastric pain, do not take more than prescribed Epigastric pain, duodenitis on MRI responded well to antibiotics and Protonix complete course of Cipro and Flagyl, Protonix twice a day Oxycodone for pain advance diet as tolerated, small meals, stay with bland food for next few days Hypertension: blood pressure markedly elevated responded well to nitro, started on Imdur much of blood pressure was driven up by pain as well continue on Atenolol 25mg daily, Lisinopril 20mg daily, Imdur 30mg daily do not take Sotalol, this was removed from list Pending Studies at Discharge: No Stand-Alone Forms: My [facility] [place], Smoking Cessation Medications and DC Order Prescriptions: New isosorbide mononitrate 30 mg Tablet Extended Release 24 Hr 30 mg PO QAM 30 Days Qty: 30 RF: 3 pantoprazole 40 mg Tablet,Delayed Release (Dr/Ec) 40 mg PO BID 30 Days Qty: 60 RF: 3 metronidazole [Flagyl] 500 mg tablet 500 mg PO Q8H 5 Days Qty: 15 RF: 0 ciprofloxacin HCl [Cipro] 500 mg tablet 500 mg PO BID 5 Days Qty: 10 RF: 0 Continued atenolol 25 mg Tablet 25 mg PO DAILY Qty: 30 RF: 0 alprazolam 0.5 mg tablet 0.5 mg PO TID PRN (Reason: Anxiety) RF: 0 albuterol sulfate 90 mcg/actuation HFA aerosol inhaler 2 puff INHALATION QID PRN (Reason: Shortness Of Breath Or Wheezing) RF: 0 lisinopril 20 mg tablet 20 mg PO DAILY RF: 0 amitriptyline 10 mg Tablet 0 mg PO . DIRECTED RF: 0 Discontinued pantoprazole 40 mg Tablet,Delayed Release (Dr/Ec) 40 mg PO DAILY RF: 0 sotalol 80 mg Tablet 0 mg PO . DIRECTED RF: 0 Discharge Orders: Discharge Order (Routine); Ordered 10/31/20 Ordered By: Augusto Carlton Admission Data Admit Date/Time: 10/28/20 09:55 Attending Provider: Augusto Carlton Admit Provider: Jeffery Rdz Primary Care Provider: Kiersten Pitt Other Providers: Jeffery Rdz ; Esvin Kam Coding Level of Care Code D/C Day Management >30 mins Diagnoses Duodenitis K29.80 Hypertensive urgency I16.0 Leukocytosis D72.829 Leukocytosis type: unspecified Abdominal pain R10.84 Abdominal location: generalized Elevated hemoglobin D58.2 Hypokalemia E87.6 Hypercalcemia E83.52 Current smoker F17.200 Hyperglycemia R73.9 JR (obstructive sleep apnea) G47.33 DVT prophylaxis Z29.9
--- NOTE | 2020-11-01 14:21 | Myocardial Perfusion Study ---
Date of Service November 01, 2020 Myocardial Perfusion Study Blk Myocardial Perfusion Study Report [place] Act 112: Negative Procedure: 1. Myocardial perfusion study performed in single view/image Indications: 1. Chest pain Ordering physician: Bipin Kam Procedural notes: 1. Procedure was ordered as a myocardial perfusion study with Lexiscan to evaluate for ischemia. However, patient had severe nausea, abdominal pain, and recurrent vomiting and was unable to complete the stress portion of the study. Therefore, this study contains only non stress/rest images. Procedural details: 11 mCi technetium 99m Cardiolite was injected intravenously at 6:45 p.m. on 10/28/2020. 1 hour following the injection, imaging of the heart was performed in the same projections. Findings: Rotating raw imaging demonstrated no significant lung uptake. There is no sig nificant motion artifact. Heart size appeared normal. There was uniform uptake throughout the myocardium without significant defect. Impression: 1. Rest imaging demonstrated no significant defect and normal uptake throughout. 2. Stress portion was not completed due to severe nausea and vomiting. [facility] Myocardial perfusion code Procedure Code Procedure 1: Myocardial Perfusion Codes: 15983 Cardiovascular Stress Test, single
== END 2020-10-31 13:14 | disposition home or self-care (01) | DRG 392 ==
LOC: ED 15:07 → 2S 15:07 → SUATTDRO 17:04 → 2S 20:48

== ENCOUNTER 2021-05-16 20:04 | Observation (INO) ==
[2021-05-16] MEDS ORDERED: SODIUM CHLORIDE 0.9% 1000ML 1,000 ML IV STA (20:09)
[2021-05-16] MEDS ORDERED: PROMETHAZINE 12.5 MG/50.5 ML BAG IV STA (20:09)
--- NOTE | 2021-05-16 20:19 | Emergency Department Note ---
Impression & Plan Cyclical vomiting, intractable, Hypertension, Abdominal pain ED Provider Note NAME: EDU SOLORIO AGE: 51 SEX: F : 1970 ARRIVES VIA: Ambulance INFORMANT: Patient, ED PROVIDER(S): Jorge Cobb DO CHIEF COMPLAINT: abdominal pain HPI: the patient is a 51-year-old female who presented to the emergency department for an evaluation of nausea vomiting. The patient has a history of chronic nausea vomiting in the past. She does use marijuana products but states that she is cut back significantly. She states that she has had intermittent episodes of lower abdominal pain. She describes as a cramping pain. She is also had multiple episodes of nausea vomiting. The symptoms began yesterday. She denies having any fever. She is had no recent trauma. She denies having any headache. According to the prehospital personnel the patient was having an irregular heartbeat. The patient does not have a history of irregular heartbeat in the past. The patient has been worked up for this in the past multiple times. No specific diagnosis was made. The patient states that otherwise she is been compliant with all of her outpatient medications. ROS: See above HPI for pertinent positives & negatives. A total of 10 systems reviewed and were otherwise negative. PAST MEDICAL HISTORY: See Below PAST SURGICAL HISTORY: See Below FAMILY HISTORY: See Below SOCIAL HISTORY: See Below HOME MEDICATIONS: See Below ALLERGIES: See Below VITALS: See Below PHYSICAL EXAMINATION: GENERAL: the patient is awake and alert. The patient is somewhat anxious appearing. EYES: The conjunctivae are clear. The pupils are round and reactive. EARS, NOSE, MOUTH AND THROAT: The nose is without any evidence of any deformity. NECK: The neck is nontender and supple. RESPIRATORY: Normal respiratory effort is noted there is no evidence of wheezing rhonchi or rales CARDIOVASCULAR: Regular rate and rhythm noted there no murmurs rubs or gallops normal S1 normal S2. GASTROINTESTINAL: the abdomen is soft and nondistended. There is no guarding rigidity appreciated. MUSCULOSKELETAL/EXTREMITIES: There is no evidence of gross deformity full range of motion is noted in the hips and shoulders. SKIN: There is no obvious evidence of any rash. There are no petechiae, pallor or cyanosis noted. NEUROLOGIC: Patient is awake alert and oriented x3 strength is symmetric patellar reflexes are 2+ bilaterally MEDICAL DECISION MAKING: the patient is a 51-year-old female who presented to the emergency department for an evaluation of nausea and vomiting. The patient has a history of cyclic v omiting in the past. The patient was treated with IV fluids and IV antiemetics in the emergency department. The patient was reevaluated multiple times. She was also treated with medications for her blood pressure. She has been vomiting for the last few days and I'm concerned she may not be taking her medications. Because the patient's symptoms were so severe and we were unable to control them in the emergency department I [facility] agreed to evaluate the patient in the emergency department for further management and disposition. Triage Nursing notes reviewed. Prior medical records reviewed Vital Signs: reviewed and remarkable for elevated blood pressure. Differential diagnosis: Gastroenteritis, food borne illness, infections, appendicitis, diverticulitis, inflammatory bowel disease, obstruction, GI bleed, biliary pathology, volvulus, as well as other pathologies. ER treatment provided: See below Diagnostics interpreted by me: ECG: EKG was obtained in the emergency department. My interpretation is sinus br adycardia 57 bpm. There was no activity. There was no acute ST segment abnormalities noted. This was compared to a tracing from October 292020. No significant changes were noted. Cardiac Monitoring: An order was placed for continuous cardiac monitoring. The monitor shows a rate of 81 bpm with sinus rhythm. Laboratory studies: As stated above and show below. Imaging studies: See below Consultation(s): I discussed this case with Dr. Medina who was insurance sales professional [facility] Past Med/Surg History Medical History Anxiety Gastritis Hepatitis C Hx of Crohn's disease Hyperglycemia Hypertension Hypertensive emergency Hypokalemia Leukocytosis Migraine Nausea & vomiting UTI (urinary tract infection) Vomiting Surgical History History of appendectomy History of delivery History of orthopedic surgery Family History Other Hypertension Social History Smoking Status: Current every day smoker Tobacco Type: Cigarettes Cigarettes Per Day: 1 ppd; Second Hand Exposure: No; Hx Alcohol Use: No Hx Substance Use: Yes Last Used Substance: Days (ago) Last Used Substance Other:: month ago Substance Use Type Other:: aprazolam Preferred Language: Yoruba Communication Ability: Effective Coater Slate Required: No Beliefs That Will Affect Care: None marital status: Current Living Situation: Significant Other Current Living Situation Comment: daughter lives with patient current occupational status: unemployed Feels Safe at Home: Yes Assistive Devices: None Allergies Allergies Allergy/AdvReac Type Severity Reaction Status Date / Time codeine Allergy Unknown GI SYMPTOMS Verified 05/16/21 21:33 tramadol Allergy Unknown GI SYMPTOMS Verified 05/16/21 21:33 morphine AdvReac Unknown N/V Verified 05/16/21 21:33 hydromorphone [From Dilaudid] AdvReac Nausea Verified 05/16/21 21:33 Home Meds Home Medications Medication Instructions Recorded Confirmed albuterol sulfate 90 mcg/actuation 2 puff INHALATION QID PRN 10/27/20 05/16/21 aerosol inhaler lisinopril 20 mg tablet 20 mg PO DAILY 10/27/20 05/16/21 clonazepam 0.5 mg tablet 0.25 mg PO BID 05/16/21 05/16/21 pantoprazole 40 mg tablet,delayed 40 mg PO DAILY 05/16/21 05/16/21 release quetiapine 25 mg tablet 50 mg PO HS 05/16/21 05/16/21 sucralfate 100 mg/mL oral 5 ml PO QID 05/16/21 05/16/21 suspension Results & Data (ED) Vital Signs Vital Signs - 24 hr 05/16/21 20:10 05/16/21 20:20 05/16/21 20:26 Temperature 37 C Temperature Source Oral Pulse Rate 65 83 Pulse Rate [Bilateral Apical] Pulse Rate from SpO2 Sensor 63 Respiratory Rate 14 20 Blood Pressure 224/120 H 224/120 H Blood Pressure [Right Arm] Blood Pressure Mean 154 154 Blood Pressure Mean [Right Arm] Pulse Oximetry 96 95 95 Oxygen Delivery Method Room Air Room Air Room Air Sepsis Recent Fever Within 48 Hours No Sepsis New/Unexplained Change in Mental Status N/A Sepsis Action Taken by Nursing No Action Required 05/16/21 20:35 05/16/21 20:37 05/16/21 21:56 Temperature Temperature Source Pulse Rate 65 79 Pulse Rate [Bilateral Apical] 74 Pulse Rate from SpO2 Sensor 62 77 Respiratory Rate 20 20 26 H Blood Pressure 250/142 H 211/143 H Blood Pressure [Right Arm] 250/142 H Blood Pressure Mean 178 165 Blood Pressure Mean [Right Arm] 178 Pulse Oximetry 94 92 92 Oxygen Delivery Method Room Air Room Air Room Air Sepsis Recent Fever Within 48 Hours Sepsis New/Unexplained Change in Mental Status Sepsis Action Taken by Nursing 05/16/21 22:00 05/16/21 22:30 Temperature Temperature Source Pulse Rate 79 81 Pulse Rate [Bilateral Apical] Pulse Rate from SpO2 Sensor 81 82 Respiratory Rate 22 24 Blood Pressure 189/115 H 200/129 H Blood Pressure [Right Arm] Blood Pressure Mean 139 152 Blood Pressure Mean [Right Arm] Pulse Oximetry 94 95 Oxygen Delivery Method Room Air Room Air Sepsis Recent Fever Within 48 Hours Sepsis New/Unexplained Change in Mental Status Sepsis Action Taken by Custodial Medications Current Medication List: was personally reviewed by me Laboratory Data Attestation: I reviewed the patient's lab results. Result diagrams: 05/16/21 20:24 05/16/21 21:26 Lab Results 05/16/21 05/16/21 05/16/21 Range/Units 20:24 20:24 20:24 WBC 15.64 H (4.8-10.8) K/uL RBC 5.37 (4.2-5.4) M/uL Hgb 16.2 H (12.0-16.0) g/dL Hct 45.9 (37-47) % MCV 85.5 (80-100) fL MCH 30.2 (25-34) pg MCHC 35.3 (32-36) g/dL RDW Std Deviation 43.5 (36.4-46.3) fL RDW Coeff of Bo 14.1 (11.5-14.5) % Plt Count 289 (130-400) K/uL MPV 10.5 H (7.4-10.4) fL Immature Gran % (Auto) 0.3 % Neut % (Auto) 88.8 % Lymph % (Auto) 5.1 % Arthur % (Auto) 5.2 % Eos % (Auto) 0.3 % Baso % (Auto) 0.3 % Neut # (Auto) 13.91 H (1.4-6.5) K/uL Lymph # (Auto) 0.79 L (1.2-3.4) K/uL Arthur # (Auto) 0.81 H (0.11-0.59) K/uL Eos # (Auto) 0.04 (0-0.5) K/uL Baso # (Auto) 0.04 (0-0.2) K/uL Immature Gran # (Auto) 0.05 H (0.00-0.02) K/uL PT 10.2 (9.0-12.0) Seconds INR 1.0 (0.9-1.1) APTT 27.4 (21.0-31.0) Seconds PTT Ratio 1.0 Sodium 136 (136-145) mmol/L Potassium (3.5-5.1) mmol/L Chloride 101 (98-107) mmol/L Carbon Dioxide 25 (21-32) mmol/L Anion Gap 10.0 (3-11) BUN 7 (7-18) mg/dl Creatinine 0.81 (0.6-1.2) mg/dl Est Cr Clr Drug Dosing 92.1 ml/min Est GFR ( Amer) 97.5 ml/min Est GFR (Non-Af Amer) 84.1 ml/min BUN/Creatinine Ratio 8.8 L (10-20) Glucose 159 H (70-99) mg/dl Calcium 9.5 (8.5-10.1) mg/dl Magnesium (1.8-2.4) mg/dl Total Bilirubin 0.9 (0.2-1) mg/dl AST (15-37) U/L ALT 28 (12-78) U/L Alkaline Phosphatase 50 (45-117) U/L Troponin I < 0.015 (0-0.045) ng/ml Total Protein 8.3 H (6.4-8.2) gm/dl Albumin 3.9 (3.4-5.0) gm/dl Globulin 4.4 H (2.5-4.0) gm/dl Albumin/Globulin Ratio 0.9 (0.9-2) Lipase 80 (73-393) U/L Urine Color Urine Appearance (Clear) Urine pH (4.5-7.5) Ur Specific [place] (1.000-1.030) Urine Protein (Negative) Urine Glucose (UA) (Negative) Urine Ketones (Negative) Urine Blood (Negative) Urine Nitrite (Negative) Urine Bilirubin (Negative) Urine Urobilinogen (Negative) Ur Leukocyte Esterase (Negative) Urine WBC (Auto) (0-5) /hpf Urine RBC (Auto) (0-4) /hpf U Hyaline Cast (Auto) (0-5) /lpf U Epithel Cells (Auto) (0-5) /lpf Urine Bacteria (Auto) (Negative) Urine Opiates Screen (Neg) Ur Methadone, Qual (Neg) Urine Barbiturates (Neg) Ur Phencyclidine (PCP) (Neg) U Amphetamin/Meth Scrn (Neg) MDMA (Ecstasy) Screen (Neg) U Benzodiazepines Scrn (Neg) Ur Cocaine Metabolite (Neg) U Marijuana (THC) Screen (Neg) COVID-19 Eval Order SARS-CoV-2 (PCR) (Negative) 05/16/21 05/16/21 05/16/21 Range/Units 21:26 21:59 21:59 WBC (4.8-10.8) K/uL RBC (4.2-5.4) M/uL Hgb (12.0-16.0) g/dL Hct (37-47) % MCV (80-100) fL MCH (25-34) pg MCHC (32-36) g/dL RDW Std Deviation (36.4-46.3) fL RDW Coeff of Bo (11.5-14.5) % Plt Count (130-400) K/uL MPV (7.4-10.4) fL Immature Gran % (Auto) % Neut % (Auto) % Lymph % (Auto) % Arthur % (Auto) % Eos % (Auto) % Baso % (Auto) % Neut # (Auto) (1.4-6.5) K/uL Lymph # (Auto) (1.2-3.4) K/uL Arthur # (Auto) (0.11-0.59) K/uL Eos # (Auto) (0-0.5) K/uL Baso # (Auto) (0-0.2) K/uL Immature Gran # (Auto) (0.00-0.02) K/uL PT (9.0-12.0) Seconds INR (0.9-1.1) APTT (21.0-31.0) Seconds PTT Ratio Sodium (136-145) mmol/L Potassium 4.0 (3.5-5.1) mmol/L Chloride (98-107) mmol/L Carbon Dioxide (21-32) mmol/L Anion Gap (3-11) BUN (7-18) mg/dl Creatinine (0.6-1.2) mg/dl Est Cr Clr Drug Dosing ml/min Est GFR ( Amer) ml/min Est GFR (Non-Af Amer) ml/min BUN/Creatinine Ratio (10-20) Glucose (70-99) mg/dl Calcium (8.5-10.1) mg/dl Magnesium 2.1 (1.8-2.4) mg/dl Total Bilirubin (0.2-1) mg/dl AST 17 (15-37) U/L ALT (12-78) U/L Alkaline Phosphatase (45-117) U/L Troponin I (0-0.045) ng/ml Total Protein (6.4-8.2) gm/dl Albumin (3.4-5.0) gm/dl Globulin (2.5-4.0) gm/dl Albumin/Globulin Ratio (0.9-2) Lipase (73-393) U/L Urine Color Yellow Urine Appearance Clear (Clear) Urine pH 8.5 H (4.5-7.5) Ur Specific [place] 1.014 (1.000-1.030) Urine Protein 2+ H (Negative) Urine Glucose (UA) Negative (Negative) Urine Ketones 2+ H (Negative) Urine Blood Negative (Negative) Urine Nitrite Negative (Negative) Urine Bilirubin Negative (Negative) Urine Urobilinogen Negative (Negative) Ur Leukocyte Esterase Negative (Negative) Urine WBC (Auto) 1-5 (0-5) /hpf Urine RBC (Auto) 0-4 (0-4) /hpf U Hyaline Cast (Auto) 1-5 (0-5) /lpf U Epithel Cells (Auto) >30 H (0-5) /lpf Urine Bacteria (Auto) Negative (Negative) Urine Opiates Screen Neg (Neg) Ur Methadone, Qual Neg (Neg) Urine Barbiturates Neg (Neg) Ur Phencyclidine (PCP) Neg (Neg) U Amphetamin/Meth Scrn Neg (Neg) MDMA (Ecstasy) Screen Neg (Neg) U Benzodiazepines Scrn Neg (Neg) Ur Cocaine Metabolite Neg (Neg) U Marijuana (THC) Screen Pos H (Neg) COVID-19 Eval Order SARS-CoV-2 (PCR) (Negative) 05/16/21 05/16/21 Range/Units 23:24 23:24 WBC (4.8-10.8) K/uL RBC (4.2-5.4) M/uL Hgb (12.0-16.0) g/dL Hct (37-47) % MCV (80-100) fL MCH (25-34) pg MCHC (32-36) g/dL RDW Std Deviation (36.4-46.3) fL RDW Coeff of Bo (11.5-14.5) % Plt Count (130-400) K/uL MPV (7.4-10.4) fL Immature Gran % (Auto) % Neut % (Auto) % Lymph % (Auto) % Arthur % (Auto) % Eos % (Auto) % Baso % (Auto) % Neut # (Auto) (1.4-6.5) K/uL Lymph # (Auto) (1.2-3.4) K/uL Arthur # (Auto) (0.11-0.59) K/uL Eos # (Auto) (0-0.5) K/uL Baso # (Auto) (0-0.2) K/uL Immature Gran # (Auto) (0.00-0.02) K/uL PT (9.0-12.0) Seconds INR (0.9-1.1) APTT (21.0-31.0) Seconds PTT Ratio Sodium (136-145) mmol/L Potassium (3.5-5.1) mmol/L Chloride (98-107) mmol/L Carbon Dioxide (21-32) mmol/L Anion Gap (3-11) BUN (7-18) mg/dl Creatinine (0.6-1.2) mg/dl Est Cr Clr Drug Dosing ml/min Est GFR ( Amer) ml/min Est GFR (Non-Af Amer) ml/min BUN/Creatinine Ratio (10-20) Glucose (70-99) mg/dl Calcium (8.5-10.1) mg/dl Magnesium (1.8-2.4) mg/dl Total Bilirubin (0.2-1) mg/dl AST (15-37) U/L ALT (12-78) U/L Alkaline Phosphatase (45-117) U/L Troponin I (0-0.045) ng/ml Total Protein (6.4-8.2) gm/dl Albumin (3.4-5.0) gm/dl Globulin (2.5-4.0) gm/dl Albumin/Globulin Ratio (0.9-2) Lipase (73-393) U/L Urine Color Urine Appearance (Clear) Urine pH (4.5-7.5) Ur Specific [place] (1.000-1.030) Urine Protein (Negative) Urine Glucose (UA) (Negative) Urine Ketones (Negative) Urine Blood (Negative) Urine Nitrite (Negative) Urine Bilirubin (Negative) Urine Urobilinogen (Negative) Ur Leukocyte Esterase (Negative) Urine WBC (Auto) (0-5) /hpf Urine RBC (Auto) (0-4) /hpf U Hyaline Cast (Auto) (0-5) /lpf U Epithel Cells (Auto) (0-5) /lpf Urine Bacteria (Auto) (Negative) Urine Opiates Screen (Neg) Ur Methadone, Qual (Neg) Urine Barbiturates (Neg) Ur Phencyclidine (PCP) (Neg) U Amphetamin/Meth Scrn (Neg) MDMA (Ecstasy) Screen (Neg) U Benzodiazepines Scrn (Neg) Ur Cocaine Metabolite (Neg) U Marijuana (THC) Screen (Neg) COVID-19 Eval Order Covid19 at [facility] SARS-CoV-2 (PCR) NEGATIVE (Negative) Administered Medications Discontinued Medications Al Hydrox/Mg Hydrox/Simethicone 1 ml/Diphenhydramine HCl 2.5 mg/Lidocaine HCl 1 ml/ Sucralfate 200 mg/ BARCODE IDENTIFIER 1 ea 0 ml PO ONE STA Stop: 05/16/21 23:40 Last Admin: 05/17/21 00:32 Dose: 5 ml Documented by: [id number] Haloperidol Lactate (Haloperidol Lactate 5 Mg/Ml 1 Ml Vial) 5 mg IM NOW STA Stop: 05/16/21 21:27 Last Admin: 05/16/21 21:56 Dose: 5 mg Documented by: [id number] Hydralazine HCl (Hydralazine Hcl 20 Mg/Ml Vial) 10 mg IV NOW STA Stop: 05/17/21 01:02 Last Admin: 05/17/21 01:13 Dose: 10 mg Documented by: [id number] Sodium Chloride (Nss 1000ml) 1,000 mls @ 999 mls/hr IV .Q1H1M STA Stop: 05/16/21 21:09 Last Infusion: 05/16/21 21:33 Dose: 0 mls/hr Documented by: [id number] Admin: 05/16/21 20:32 Dose: 999 mls/hr Documented by: [id number] Promethazine HCl (Phenergan) 12.5 mg in 50.5 mls @ 202 mls/hr IV NOW STA Stop: 05/16/21 20:23 Last Infusion: 05/16/21 20:38 Dose: 0 mls/hr Documented by: [id number] Admin: 05/16/21 20:23 Dose: 202 mls/hr Documented by: [id number] Lorazepam (Ativan) 1 mg in 2 mls @ 2 mls/min IV NOW STA Stop: 05/16/21 20:34 Last Admin: 05/16/21 20:43 Dose: 2 mls/min Documented by: [id number] Famotidine (Pepcid 20mg Iv Push) 20 mg in 5 mls @ 2.5 mls/min IV NOW STA Stop: 05/16/21 23:35 Last Admin: 05/17/21 00:32 Dose: 2.5 mls/min Documented by: [id number] Labetalol HCl (Labetalol Hcl Iv 5 Mg/Ml 20ml) 10 mg IV NOW STA Stop: 05/16/21 22:55 Last Admin: 05/16/21 23:12 Dose: 10 mg Documented by: [id number] Cosigned by: [id number] Lisinopril (Lisinopril 20 Mg Tab) 20 mg PO NOW STA Stop: 05/16/21 20:50 Last Admin: 05/16/21 21:36 Dose: 20 mg Documented by: [id number] Imaging Data Radiologist's Impression: Chest X-Ray 05/16/21 20:10 XR chest 1V portable CLINICAL HISTORY: vomiting COMPARISON STUDY: Chest radiograph October 28, 2017. FINDINGS: Lung volumes are normal. Lungs are clear. There is no pneumothorax or pleural effusion. Cardiac size is normal. Mediastinal contours are normal. There is no evidence for pulmonary edema. IMPRESSION: No acute cardiopulmonary findings. ACT 112: Negative or not required by law. Electronically signed by: Aleksandar Mcallister M.D. 05/16/2021 8:53 PM Discharge Plan Visit Data Chief Complaint: Abdominal Pain Stated Complaint: Abdominal Pain ED Provider: Jorge Cobb Discharge Problem: Cyclical vomiting, intractable, Hypertension, Abdominal pain Patient Disposition: Admitted As Inpatient Forms Stand Alone Forms: My [facility] Prescriptions Prescriptions: No Action quetiapine 25 mg tablet 50 mg PO HS RF: 0 sucralfate 100 mg/mL suspension 5 ml PO QID RF: 0 clonazepam 0.5 mg tablet 0.25 mg PO BID RF: 0 pantoprazole 40 mg tablet,delayed release (DR/EC) 40 mg PO DAILY RF: 0 albuterol sulfate 90 mcg/actuation HFA aerosol inhaler 2 puff INHALATION QID PRN (Reason: Shortness Of Breath Or Wheezing) RF: 0 lisinopril 20 mg tablet 20 mg PO DAILY RF: 0 Referrals Referrals: Kiersten Pitt PA-C [Outside Practitioners] -
[2021-05-16] MEDS ORDERED: LORazepam 1 MG/2 ML VIAL IV STA (20:33)
[2021-05-16 20:34] LABS: Basophils # (auto) 0.04 K/uL (0-0.2); Basophils % (auto) 0.3 %; Eosinophils # (auto) 0.04 K/uL (0-0.5); Eosinophils % (auto) 0.3 %; Hematocrit (blood only) 45.9 % (37-47); Hemoglobin 16.2 g/dL (12.0-16.0); Immature Granulocytes # (auto) 0.05 K/uL (0.00-0.02); Immature Granulocytes % (auto) 0.3 %; Lymphocytes # (auto) 0.79 K/uL (1.2-3.4); Lymphocytes % (auto) 5.1 %; Mean Corpuscular Hemoglobin 30.2 pg (25-34); Mean Corpuscular Hgb Conc 35.3 g/dL (32-36); Mean Corpuscular Volume 85.5 fL (80-100); Mean Platelet Volume 10.5 fL (7.4-10.4); Monocytes # (auto) 0.81 K/uL (0.11-0.59); Monocytes % (auto) 5.2 %; Neutrophils # (auto) 13.91 K/uL (1.4-6.5); Neutrophils % (auto) 88.8 %; Platelet Count 289 K/uL (130-400); RDW Coefficient of Variation 14.1 % (11.5-14.5); RDW Standard Deviation 43.5 fL (36.4-46.3); Red Blood Count 5.37 M/uL (4.2-5.4); White Blood Count 15.64 K/uL (4.8-10.8)
[2021-05-16 20:49] LABS: Partial Thromboplastin Time 27.4 Seconds (21.0-31.0); Prothrombin Time 10.2 Seconds (9.0-12.0)
[2021-05-16] MEDS ORDERED: lisinopril 20 MG TAB PO STA (20:49)
[2021-05-16 20:51] LABS: Alanine Aminotransferase 28 U/L (12-78); Albumin Level 3.9 gm/dl (3.4-5.0); BUN Creatinine Ratio 8.8 (10-20); Blood Urea Nitrogen 7 mg/dl (7-18); Calcium 9.5 mg/dl (8.5-10.1); Carbon Dioxide 25 mmol/L (21-32); Chloride 101 mmol/L (98-107); Creatinine Clr Calc Pharmacy 92.1 ml/min; Est GFR (African American) 97.5 ml/min; Est GFR (Non-African American) 84.1 ml/min; Glucose 159 mg/dl (70-99); Lipase 80 U/L (73-393); Sodium 136 mmol/L (136-145)
--- NOTE | 2021-05-16 20:55 | XRay Report ---
XR chest 1V portable CLINICAL HISTORY: vomiting COMPARISON STUDY: Chest radiograph October 28, 2017. FINDINGS: Lung volumes are normal. Lungs are clear. There is no pneumothorax or pleural effusion. Car diac size is normal. Mediastinal contours are normal. There is no evidence for pulmonary edema. IMPRESSION: No acute cardiopulmonary findings. ACT 112: Negative or not required by law. Electronically signed by: Aleksandar Mcallister M.D. 05/16/2021 8:53 PM
[2021-05-16 20:58] LABS: Albumin Globulin Ratio 0.9 (0.9-2); Alkaline Phosphatase 50 U/L (45-117); Bilirubin,Total 0.9 mg/dl (0.2-1); Globulin 4.4 gm/dl (2.5-4.0); Total Protein 8.3 gm/dl (6.4-8.2); Troponin I < 0.015 ng/ml (0-0.045)
[2021-05-16] MEDS ORDERED: HALOPERIDOL LACTATE 5 MG/ML 1 ML VIAL IM STA (21:26)
[2021-05-16 21:53] LABS: Magnesium 2.1 mg/dl (1.8-2.4)
[2021-05-16 22:20] LABS: Appearance Urine Clear (Clear); Bacteria Urine Automated Negative (Negative); Bilirubin Urine Negative (Negative); Blood Urine Negative (Negative); Color Urine Yellow; Epithelial Cell Urine Auto >30 /lpf (0-5); Glucose Urine UA Negative (Negative); Ketones Urine 2+ (Negative); Leukocyte Esterase Urine Negative (Negative); Nitrite Urine Negative (Negative); RBC Urine Automated 0-4 /hpf (0-4); Specific Gravity Urine 1.014 (1.000-1.030); Urobilinogen Urine Negative (Negative); pH Urine 8.5 (4.5-7.5)
[2021-05-16 22:21] LABS: Protein Urine 2+ (Negative)
[2021-05-16] MEDS ORDERED: LABETALOL HCL IV 5 MG/ML 20ML IV STA (22:54)
[2021-05-16] MEDS ORDERED: FAMOTIDINE 20MG IV PUSH 20 MG/5 ML SYR IV STA (23:34)
[2021-05-16] MEDS ORDERED: ALUMINUM/MAGNESIUM SUSP 1 ML, diphenhydrAMINE Syrup 2.5 MG, LIDOCAINE VISCOUS 2% SOLN 1 ML PO STA (23:39)
--- NOTE | 2021-05-16 23:47 | History & Physical Report ---
Date of Service May 16, 2021 Assessment & Plan (1) Abdominal pain: Plan: Patient presents with two days of abdominal pain, nausea. Had similar symptoms in the past and found to have duodenitis. LFTs and Lipase largely unremarkable. ?Duodenitis? Patient smokes marijuana frequently, ?cannabis hyperemesis? No history of abdominal symptoms with migraine in the past -Admit to PCU -Pepcid 20mg IV x 2 -Maalox PRN -Protonix BID -Carafate QID -Capsaicin topical -Zofran PRN -Oxycodone as needed (2) Hypertension: Plan: Elevated blood pressure. Patient states she has been compliant with her med ications. Labetalol and Hydralazine given in ER. Consider use of Nitro patch -Continue Lisinopril -Patient was prescribed Atenolol and Imdur which she is not currently taking -Continue to monitor (3) Anxiety: Plan: Chronic -Seroquel 50mg po qHS -Continue Clonazepam BID (4) Nausea: Plan: ?Duodenitis -Zofran PRN -IVF and electrolyte repletion Plan: F/E/N - LR at 125mL/hr, check PO4 x 1 - patient with history of hypophosphatemia, NPO for now Ppx - SCD Code - Full Disp - Observation to PCU History of Present Illness Chief Complaint: nausea, vomiting, abdominal pain Primary Care Provider: NO PCP Charleen Mathis is a 51yo female presenting with 2 days of epigastric abdominal pain, severe nausea with multiple episodes of non-bloody/non-bilious emesis. Patient states she has been taking her blood pressure medications at home - is uncertain if she has vomited them up. She is complaining of mild shortness of breath as well. Otherwise denies fever, chills, chest pain, diarrhea, constipation. Patient was admitted to [facility] in October 2020 for similar complaints of epigastric abdominal pain and nausea as well as severe hypertension. She was found to have duodenitis diagnosed by ERCP which was treated with Protonix as well as Cefepime and Flagyl. She was discharged home to complete a course of Cipro/Flagyl and to continue BID Protonix. ER Course: Haldol, Labetalol, Lisinopril, Ativan, NSS, Promethazine, Pepcid, Maalox Allergies Allergy/AdvReac Type Severity Reaction Status Date / Time codeine Allergy Unknown GI SYMPTOMS Verified 05/16/21 21:33 tramadol Allergy Unknown GI SYMPTOMS Verified 05/16/21 21:33 morphine AdvReac Unknown N/V Verified 05/16/21 21:33 hydromorphone [From Dilaudid] AdvReac Nausea Verified 05/16/21 21:33 Home Medications Medication Instructions Recorded Confirmed Type albuterol sulfate 90 mcg/actuation 2 puff INHALATION QID PRN 10/27/20 05/16/21 History aerosol inhaler lisinopril 20 mg tablet 20 mg PO DAILY 10/27/20 05/16/21 History clonazepam 0.5 mg tablet 0.25 mg PO BID 05/16/21 05/16/21 History pantoprazole 40 mg tablet,delayed 40 mg PO DAILY 05/16/21 05/16/21 History release quetiapine 25 mg tablet 50 mg PO HS 05/16/21 05/16/21 History sucralfate 100 mg/mL oral 5 ml PO QID 05/16/21 05/16/21 History suspension Past Med/Surg History Medical History Anxiety Gastritis Hepatitis C Hx of Crohn's disease Hyperglycemia Hypertension Hypertensive emergency Hypokalemia Leukocytosis Migraine Nausea & vomiting UTI (urinary tract infection) Vomiting Surgical History History of appendectomy History of delivery History of orthopedic surgery Family History Other Hypertension Social History Smoking Status: Current every day smoker Tobacco Type: Cigarettes Cigarettes Per Day: 1 ppd; Second Hand Exposure: No; Hx Alcohol Use: No Hx Substance Use: Yes Last Used Substance: Days (ago) Last Used Substance Other:: month ago Substance Use Type Other:: aprazolam Preferred Language: Nigerien Communication Ability: Effective Environmental Health Technician Required: No Beliefs That Will Affect Care: None marital status: Current Living Situation: Significant Other Current Living Situation Comment: daughter lives with patient current occupational status: unemployed Feels Safe at Home: Yes Assistive Devices: None Review of Systems Review of Systems: All systems reviewed & are unremarkable except as noted in HPI & below Physical Exam Physical Exam: General: patient ill in appearance, AA&O x 4 Skin: warm, dry, intact, no rashes or lesions HEENT: NC/AT, PERRL, EOMI, anicteric sclera, conjunctiva without injection, external ear normal to inspection and nontender, nares patent, dry mucus membranes, dentition intact, no oropharyngeal lesions, neck supple, trachea midline, no LAD, no thyromegaly, no JVD Heart: +S1/S2, regular, no m/r/g Lungs: equal air entry bilaterally, no rales/rhonchi/wheezes Abd: +BS, soft, ND, diffusely tender to palpation with voluntary guarding no rebound, no masses/organomegaly/ascites Ext: warm, 2+ pulses in UE/LE bilaterally, no clubbing/cyanosis or edema Neuro: nonfocal, patient AA&O x 4, speech intact, no facial droop, moving all extremities on command with equal strength 5/5 Results & Data Results & Data ([facility]) Vital Signs (Past 12 Hours) Vital Signs Temp Pulse Pulse Resp BP BP Pulse Ox 05/16/21 22:30 81 24 200/129 H 95 05/16/21 22:00 79 22 189/115 H 94 05/16/21 21:56 79 26 H 211/143 H 92 05/16/21 20:37 74 20 250/142 H 92 05/16/21 20:35 65 20 250/142 H 94 05/16/21 20:26 95 05/16/21 20:20 37 C 83 20 224/120 H 95 05/16/21 20:10 65 14 224/120 H 96 Laboratory Results Laboratory Results WBC 15.64 K/uL (4.8-10.8) H 05/16/21 20:24 RBC 5.37 M/uL (4.2-5.4) 05/16/21 20:24 Hgb 16.2 g/dL (12.0-16.0) H 05/16/21 20:24 Hct 45.9 % (37-47) 05/16/21 20:24 MCV 85.5 fL (80-100) 05/16/21 20:24 MCH 30.2 pg (25-34) 05/16/21 20:24 MCHC 35.3 g/dL (32-36) 05/16/21 20: RDW Std Deviation 43.5 fL (36.4-46.3) 05/16/21 20: RDW Coeff of Bo 14.1 % (11.5-14.5) 05/16/21 20: Plt Count 289 K/uL (130-400) 05/16/21 20: MPV 10.5 fL (7.4-10.4) H 05/16/21 20:24 Immature Gran % (Auto) 0.3 % 05/16/21 20: Neut % (Auto) 88.8 % 05/16/21 20: Lymph % (Auto) 5.1 % 05/16/21: Lane % (Auto) 5.2 % 05/16/21 20: Eos % (Auto) 0.3 % 05/16/21 20:24 Baso % (Auto) 0.3 % 05/16/21: Neut # (Auto) 13.91 K/uL (1.4-6.5) H 05/16/21 20:24 Lymph # (Auto) 0.79 K/uL (1.2-3.4) L 05/16/21 20:24 Lane # (Auto) 0.81 K/uL (0.11-0.59) H 05/16/21 20:24 Eos # (Auto) 0.04 K/uL (0-0.5) 05/16/21 20:24 Baso # (Auto) 0.04 K/uL (0-0.2) 05/16/21: Immature Gran # (Auto) 0.05 K/uL (0.00-0.02) H 05/16/21 20:24 PT 10.2 Seconds (9.0-12.0) 05/16/21 20: INR 1.0 (0.9-1.1) 05/16/21 20: APTT 27.4 Seconds (21.0-31.0) 05/16/21 20: PTT Ratio 1.0 05/16/21 20:24 Sodium 136 mmol/L (136-145) 05/16/21 20: Potassium 4.0 mmol/L (3.5-5.1) 05/16/21 21:26 Chloride 101 mmol/L (98-107) 05/16/21 20:24 Carbon Dioxide 25 mmol/L (21-32) 05/16/21 20:24 Anion Gap 10.0 (3-11) 05/16/21 20:24 BUN 7 mg/dl (7-18) 05/16/21 20:24 Creatinine 0.81 mg/dl (0.6-1.2) 05/16/21 20:24 Est Cr Clr Drug Dosing 92.1 ml/min 05/16/21 20:24 Est GFR ( Amer) 97.5 ml/min 05/16/21 20:24 Est GFR (Non-Af Amer) 84.1 ml/min 05/16/21 20:24 BUN/Creatinine Ratio 8.8 (10-20) L 05/16/21 20:24 Glucose 159 mg/dl (70-99) H 05/16/21 20:24 Calcium 9.5 mg/dl (8.5-10.1) 05/16/21 20:24 Magnesium 2.1 mg/dl (1.8-2.4) 05/16/21 21:26 Total Bilirubin 0.9 mg/dl (0.2-1) 05/16/21 20:24 AST 17 U/L (15-37) 05/16/21 21:26 ALT 28 U/L (12-78) 05/16/21 20:24 Alkaline Phosphatase 50 U/L (45-117) 05/16/21 20:24 Troponin I < 0.015 ng/ml (0-0.045) 05/16/21 20:24 Total Protein 8.3 gm/dl (6.4-8.2) H 05/16/21 20:24 Albumin 3.9 gm/dl (3.4-5.0) 05/16/21 20:24 Globulin 4.4 gm/dl (2.5-4.0) H 05/16/21 20:24 Albumin/Globulin Ratio 0.9 (0.9-2) 05/16/21 20:24 Lipase 80 U/L (73-393) 05/16/21 20:24 Urine Color Yellow 05/16/21 21:59 Urine Appearance Clear (Clear) 05/16/21 21:59 Urine pH 8.5 (4.5-7.5) H 05/16/21 21:59 Ur Specific [place] 1.014 (1.000-1.030) 05/16/21 21:59 Urine Protein 2+ (Negative) H 05/16/21 21:59 Urine Glucose (UA) Negative (Negative) 05/16/21 21:59 Urine Ketones 2+ (Negative) H 05/16/21 21:59 Urine Blood Negative (Negative) 05/16/21 21:59 Urine Nitrite Negative (Negative) 05/16/21 21:59 Urine Bilirubin Negative (Negative) 05/16/21 21:59 Urine Urobilinogen Negative (Negative) 05/16/21 21:59 Ur Leukocyte Esterase Negative (Negative) 05/16/21 21:59 Urine WBC (Auto) 1-5 /hpf (0-5) 05/16/21 21:59 Urine RBC (Auto) 0-4 /hpf (0-4) 05/16/21 21:59 U Hyaline Cast (Auto) 1-5 /lpf (0-5) 05/16/21 21:59 U Epithel Cells (Auto) >30 /lpf (0-5) H 05/16/21 21:59 Urine Bacteria (Auto) Negative (Negative) 05/16/21 21:59 Urine Opiates Screen Neg (Neg) 05/16/21 21:59 Ur Methadone, Qual Neg (Neg) 05/16/21 21:59 Urine Barbiturates Neg (Neg) 05/16/21 21:59 Ur Phencyclidine (PCP) Neg (Neg) 05/16/21 21:59 U Amphetamin/Meth Scrn Neg (Neg) 05/16/21 21:59 MDMA (Ecstasy) Screen Neg (Neg) 05/16/21 21:59 U Benzodiazepines Scrn Neg (Neg) 05/16/21 21:59 Ur Cocaine Metabolite Neg (Neg) 05/16/21 21:59 U Marijuana (THC) Screen Pos (Neg) H 05/16/21 21:59 COVID-19 Eval Order Covid19 at [facility] 05/16/21 23:24 SARS-CoV-2 (PCR) NEGATIVE (Negative) 05/16/21 23:24 Impressions Chest X-Ray 05/16/21 20:10 XR chest 1V portable CLINICAL HISTORY: vomiting COMPARISON STUDY: Chest radiograph October 28, 2017. FINDINGS: Lung volumes are normal. Lungs are clear. There is no pneumothorax or pleural effusion. Cardiac size is normal. Mediastinal contours are normal. There is no evidence for pulmonary edema. IMPRESSION: No acute cardiopulmonary findings. ACT 112: Negative or not required by law. Electronically signed by: Aleksandar Mcallister M.D. 05/16/2021 8:53 PM ECG Additional Comments: SB at 57, normal axis and intervals, no acute ischemic changes Code Status & VTE Plan VTE Prophylaxis Plan VTE Prophylaxis will be ordered: Yes PG Care Time/CCT Total # of Minutes Spent Total Time Spent with Patient: Total time spent is greater than 50% in coordination of care (as documented) at patient's floor/unit and/or counseling patient: Coding Level of Care Code INT OBSERVATION CARE 50M LVL 2 Diagnoses Hypertension I10 Anxiety F41.9 Nausea R11.0 Abdominal pain R10.9
[2021-05-16 23:55] LABS: Amphetamines+Metham, Urine Neg (Neg); Barbiturates, Urine Neg (Neg); Benzodiazepine, Urine Neg (Neg); Cocaine, Urine Neg (Neg); MDMA (Ecstacy), Urine Neg (Neg); Methadone, Urine Neg (Neg); Opiate, Urine Neg (Neg); Phencyclidine, Urine Neg (Neg)
[2021-05-17] MEDS ORDERED: hydrALAZINE HCL 20 MG/ML VIAL IV STA (01:01)
[2021-05-17 02:24] LABS: Phosphorus 1.7 mg/dl (2.5-4.9)
[2021-05-17] MEDS ORDERED: ALUMINUM/MAGNESIUM SUSP 30 ML UDC PO PRN (02:45)
[2021-05-17] MEDS ORDERED: CAPSAICIN CR 0.075% 60 GM TUBE EXT PRN (02:45)
[2021-05-17] MEDS ORDERED: ONDANSETRON INJ 2 MG/ML 2 ML VIAL IV PRN (02:45)
[2021-05-17] MEDS ORDERED: LACTATED RINGER'S 1,000 ML IV SCH (04:00)
[2021-05-17 04:24] LABS: Albumin Level 4.2 gm/dl (3.4-5.0); BUN Creatinine Ratio 6.5 (10-20); Bilirubin Direct 0.2 mg/dl (0-0.2); Bilirubin,Total 1.1 mg/dl (0.2-1); Calcium 9.6 mg/dl (8.5-10.1); Creatinine Clr Calc Pharmacy 74.7 ml/min; Est GFR (African American) 76.5 ml/min; Potassium 4.1 mmol/L (3.5-5.1); Total Protein 8.9 gm/dl (6.4-8.2)
[2021-05-17] MEDS: SUCRALFATE 1 GM/10 ML UDC PO SCH ×4 (08:03→21:14)
[2021-05-17] MEDS: lisinopril 20 MG TAB PO SCH (08:04)
[2021-05-17] MEDS: oxyCODONE HCL IR 5 MG TAB (IMMEDIATE RELEASE) PO PRN ×4 (08:05→21:12)
[2021-05-17] MEDS: clonazePAM 0.25 MG TAB PO SCH ×2 (08:05→21:12)
[2021-05-17] MEDS ORDERED: LABETALOL HCL 100 MG TAB PO ONE (08:15)
--- NOTE | 2021-05-17 08:54 | Electrocardiogram Report ---
Test Reason : Blood Pressure : / mmHG Vent. Rate : 057 BPM Atrial Rate : 057 BPM P-R Int : 130 ms QRS Dur : 096 ms QT Int : 416 ms P-R-T Axes : 028 005 013 degrees QTc Int : 404 ms Poor data quality, interpretation may be adversely affected Sinus bradycardia Otherwise normal ECG When compared with ECG of 29-OCT-2020 05:57, T wave inversion now evident in Inferior leads QT has shortened Confirmed by Justus Jimenez ([id number]) on 05/17/2021 8:53:56 AM Referred By: REFERRED SELF Confirmed By:Jozef Jimenez
[2021-05-17] MEDS ORDERED: PANTOprazole 40 MG TAB PO SCH (09:00)
--- NOTE | 2021-05-17 09:44 | XRay Report ---
KUB CLINICAL HISTORY: Abdominal pain, nausea and vomiting. COMPARISON STUDY: CT of the abdomen and pelvis October 27, 2020. KUB October 28, 2020. FINDINGS: The bowel gas pattern is normal. No urinary calculi are identified. Left pelvic calcificati ons are vascular. Although sensitivity is diminished on this supine exam, there is no evidence for fr ee air. IMPRESSION: Unremarkable KUB. ACT 112: Negative or not required by law. Electronically signed by: Aleksandar Mcallister M.D. 05/17/2021 9:43 AM
--- NOTE | 2021-05-17 12:07 | Hospitalist Progress Note ---
Date of Service May 17, 2021 Assessment & Plan (1) Abdominal pain: Plan: etiology uncertain. has had recurrent episodes of such over the last few years. has had EGD/colonoscopy without pathology. on one admission an MRCP showed duodenitis. I spoke with Dr Pitts with [facility]. He consulted, advised w/u for porphyria, and he may perform flex sig due to abnormal colon on CT. Change PPI to IV PPI. Carafate. Pain meds. Clear liquids if desired/as tolerated. Repeat LFTs wnl. Lipase wnl. (2) Hypertension: Plan: severe, uncontrolled. on prior admissions had similar presentation. cont lisinopril. gave labetalol orally with good results. place on labetalol 100mg BID standing. follow. (3) Anxiety: Plan: Chronic Cont Seroquel 50mg po qHS Cont Clonazepam BID (4) Nausea: Plan: see #1 above (5) RSV (respiratory syncytial virus pneumonia): Plan: fever, cough, CT findings (lung cuts on CT a/p with bronchial inflammation and tree-in-bud infiltrates. BioFire ordered - neg for COVID but + for RSV. appropriate precautions ordered. supportive care. consider steroids but defer for now given her abdominal issues. (6) Abnormal CT of the abdomen: Plan: ?colitis. GI consult appreciated - flex sig likely. no diarrhea but if she does develop such then order c. diff, stool cx, etc. (7) Hyponatremia: Plan: 2nd volume depletion. cont IV fluids. BMP am. (8) Polycythemia: Plan: 2nd to chronic tobacco use and hypoxia. can't rule out element of hemoconcentration. hydrate; cbc in am. (9) Tobacco use disorder: Plan: nicoderm patch drug and alcohol counsellor to quit (10) Prediabetes: Plan: a1c 5.8% c/w such will drug and alcohol counsellor (11) DVT prophylaxis: Plan: hold chemical means until flex sig is completed Plan: change observation status to full admission status appreciate GI consultation Admission and Anticipated Discharge Date Admission Date: May 16, 2021 Subjective patient feels very poorly continues with constant epigastric abd pain states this episode is very similar to past abd episodes that landed her in the hospital was to see a [facility] specialist in [place] later this month episodes of abd pain last days and occur about twice each year was told once in the past that "she may have Crohn's disease" but this was never confirmed, and she has never been on meds for such denies etoh use denies NSAID use today has worsening cough and mild fever cough started about the same time as the GI symptoms (3 days ago) she does smoke cigarettes no further vomiting since admission denies diarrhea Review of Systems Review of Systems: gen - fevers, chills, fatigue, anorexia CV - no chest pain pulm - coughing, mild dyspnea GI - see HPI; no blood in stool (bright red or melena) musculo - denies myalgias Physical Exam Physical Exam: gen - looks unwell, looks uncomfortable; coughing, c/o abd pain mouth - MM very dry neck - no JVD heart - tachy, s1 s2 lungs - minimal end-exp wheeze with fine rales; no distress abd - soft, tender epigastric region, BS+, no peritoneal signs ext - no edema vasc - pulses 2+ b/l psych - a/o x 3 Results & Data Results & Data ([facility]) Vital Signs (Past 12 Hours) Vital Signs Temp Pulse Pulse Resp BP BP BP 05/17/21 11:22 37.7 C H 109 H 20 145/92 H 05/17/21 08:00 95 H 05/17/21 07:38 37.4 C 89 20 216/116 H 05/17/21 05:12 05/17/21 05:04 83 16 178/93 H 05/17/21 02:45 37.4 C 67 20 214/103 H 05/17/21 02:32 74 05/17/21 02:00 79 19 195/113 H 05/17/21 01:43 82 20 222/148 H 05/17/21 01:30 82 25 H 215/143 H 05/17/21 01:20 77 28 H 224/148 H 05/17/21 01:00 71 25 H 228/140 H 05/17/21 00:30 72 21 235/127 H 05/17/21 00:29 59 L 22 229/140 H Pulse Ox 05/17/21 11:22 92 05/17/21 08:00 05/17/21 07:38 92 05/17/21 05:12 92 05/17/21 05:04 88 L 05/17/21 02:45 93 05/17/21 02:32 05/17/21 02:00 96 05/17/21 01:43 96 05/17/21 01:30 92 05/17/21 01:20 96 05/17/21 01:00 94 05/17/21 00:30 95 05/17/21 00:29 97 Laboratory Results Laboratory Results - last 24 hr 05/17/21 05/17/21 05/17/21 03:37 12:19 12:19 WBC 12.47 H RBC 5.73 H Hgb 16.9 H Hct 48.1 H MCV 83.9 MCH 29.5 MCHC 35.1 RDW Std Deviation 44.0 RDW Coeff of Bo 14.4 Plt Count 289 MPV 10.3 Immature Gran % (Auto) 0.2 Neut % (Auto) 78.6 Lymph % (Auto) 10.6 [place] % (Auto) 10.3 Eos % (Auto) 0.0 Baso % (Auto) 0.3 Neut # (Auto) 9.80 H Lymph # (Auto) 1.32 [place] # (Auto) 1.28 H Eos # (Auto) 0.00 Baso # (Auto) 0.04 Immature Gran # (Auto) 0.03 H Sodium 132 L 135 L Potassium 4.1 4.3 Chloride 99 100 Carbon Dioxide 27 27 Anion Gap 6.0 8.0 BUN 6 L 10 Creatinine 0.99 0.99 Est Cr Clr Drug Dosing 74.7 74.7 Est GFR ( Amer) 76.5 76.5 Est GFR (Non-Af Amer) 66.0 66.0 BUN/Creatinine Ratio 6.5 L 9.6 L Glucose 188 H 122 H Lactate Calcium 9.6 9.6 Total Bilirubin 1.1 H 1.0 Direct Bilirubin 0.2 AST 17 19 ALT 32 29 Alkaline Phosphatase 55 50 C-Reactive Protein 0.85 H Total Protein 8.9 H 8.2 Albumin 4.2 3.9 Globulin 4.3 H Albumin/Globulin Ratio 0.9 Lipase 76 Ur [place] Porphobilinogen U Porphobilinogen Intrp Ur Total Porphyrins Random Uroporphyrins I Random Uroporphyrin III U Rdm Heptacarboxylpor U Rndm Hexacarboxylpor U Rdm Pentacarboxylpor U Random Coproporphyr I U Rndm Coproporphyr III Ur Porphyrins Interp Adenovirus (PCR) B. pertussis DNA (PCR) B.parapertussis DNA PCR C. pneumoniae DNA (PCR) Coronavirus OC43 (PCR) Coronavirus HKU1 (PCR) Coronavirus 229E (PCR) COVID-19 Eval Order SARS-CoV-2 (PCR) Coronavirus NL63 (PCR) Human Metapneumovir PCR Influenza Type A (PCR) Influenza Type B (PCR) M. pneumoniae (PCR) Parainfluenza 1 (PCR) Parainfluenza 2 (PCR) Parainfluenza 3 (PCR) Parainfluenza 4 (PCR) RSV (PCR) Entero/Rhino (PCR) 05/17/21 05/17/21 05/17/21 12:19 15:56 15:56 WBC RBC Hgb Hct MCV MCH MCHC RDW Std Deviation RDW Coeff of Bo Plt Count MPV Immature Gran % (Auto) Neut % (Auto) Lymph % (Auto) [place] % (Auto) Eos % (Auto) Baso % (Auto) Neut # (Auto) Lymph # (Auto) [place] # (Auto) Eos # (Auto) Baso # (Auto) Immature Gran # (Auto) Sodium Potassium Chloride Carbon Dioxide Anion Gap BUN Creatinine Est Cr Clr Drug Dosing Est GFR ( Amer) Est GFR (Non-Af Amer) BUN/Creatinine Ratio Glucose Lactate 1.7 Calcium Total Bilirubin Direct Bilirubin AST ALT Alkaline Phosphatase C-Reactive Protein Total Protein Albumin Globulin Albumin/Globulin Ratio Lipase Ur [place] Porphobilinogen U Porphobilinogen Intrp Ur Total Porphyrins Random Uroporphyrins I Random Uroporphyrin III U Rdm Heptacarboxylpor U Rndm Hexacarboxylpor U Rdm Pentacarboxylpor U Random Coproporphyr I U Rndm Coproporphyr III Ur Porphyrins Interp Adenovirus (PCR) Not Detected B. pertussis DNA (PCR) Not Detected B.parapertussis DNA PCR Not Detected C. pneumoniae DNA (PCR) Not Detected Coronavirus OC43 (PCR) Not Detected Coronavirus HKU1 (PCR) Not Detected Coronavirus 229E (PCR) Not Detected COVID-19 Eval Order RESPNP at [facility] SARS-CoV-2 (PCR) Not Detected Coronavirus NL63 (PCR) Not Detected Human Metapneumovir PCR Not Detected Influenza Type A (PCR) Not Detected Influenza Type B (PCR) Not Detected M. pneumoniae (PCR) Not Detected Parainfluenza 1 (PCR) Not Detected Parainfluenza 2 (PCR) Not Detected Parainfluenza 3 (PCR) Not Detected Parainfluenza 4 (PCR) Not Detected RSV (PCR) DETECTED A* Entero/Rhino (PCR) Not Detected 05/17/21 23:59 WBC RBC Hgb Hct MCV MCH MCHC RDW Std Deviation RDW Coeff of Bo Plt Count MPV Immature Gran % (Auto) Neut % (Auto) Lymph % (Auto) [place] % (Auto) Eos % (Auto) Baso % (Auto) Neut # (Auto) Lymph # (Auto) [place] # (Auto) Eos # (Auto) Baso # (Auto) Immature Gran # (Auto) Sodium Potassium Chloride Carbon Dioxide Anion Gap BUN Creatinine Est Cr Clr Drug Dosing Est GFR ( Amer) Est GFR (Non-Af Amer) BUN/Creatinine Ratio Glucose Lactate Calcium Total Bilirubin Direct Bilirubin AST ALT Alkaline Phosphatase C-Reactive Protein Total Protein Albumin Globulin Albumin/Globulin Ratio Lipase Ur [place] Porphobilinogen Pending U Porphobilinogen Intrp Pending Ur Total Porphyrins Pending Random Uroporphyrins I Pending Random Uroporphyrin III Pending U Rdm Heptacarboxylpor Pending U Rndm Hexacarboxylpor Pending U Rdm Pentacarboxylpor Pending U Random Coproporphyr I Pending U Rndm Coproporphyr III Pending Ur Porphyrins Interp Pending Adenovirus (PCR) B. pertussis DNA (PCR) B.parapertussis DNA PCR C. pneumoniae DNA (PCR) Coronavirus OC43 (PCR) Coronavirus HKU1 (PCR) Coronavirus 229E (PCR) COVID-19 Eval Order SARS-CoV-2 (PCR) Coronavirus NL63 (PCR) Human Metapneumovir PCR Influenza Type A (PCR) Influenza Type B (PCR) M. pneumoniae (PCR) Parainfluenza 1 (PCR) Parainfluenza 2 (PCR) Parainfluenza 3 (PCR) Parainfluenza 4 (PCR) RSV (PCR) Entero/Rhino (PCR) Diagnostic Findings KUB X-Ray 05/17/21 06:00 KUB CLINICAL HISTORY: Abdominal pain, nausea and vomiting. COMPARISON STUDY: CT of the abdomen and pelvis October 27, 2020. KUB October 28, 2020. FINDINGS: The bowel gas pattern is normal. No urinary calculi are identified. Left pelvic calcifications are vascular. Although sensitivity is diminished on this supine exam, there is no evidence for free air. IMPRESSION: Unremarkable KUB. ACT 112: Negative or not required by law. Electronically signed by: Aleksandar Mcallister M.D. 05/17/2021 9:43 AM Abdomen/Pelvis CT 05/17/21 12:[address] WITH IV CONTRAST CT DOSE: 597.91 mGy.cm HISTORY: Acute severe abdominal pain with nausea and vomiting severe abd pain, emesis TECHNIQUE: Multiaxial CT images of the abdomen and pelvis were performed following the IV administration of 95 cc of Optiray, A dose lowering technique was utilized adhering to the principles of ALARA. COMPARISON STUDY: CT abdomen and pelvis 10/27/2020 FINDINGS: Mild bibasilar bronchial wall thickening with mild tree-in-bud nodules of the right lung base. No pneumatosis or pneumoperitoneum. Unremarkable spleen, pancreas, gallbladder, adrenal glands and liver. Patency of the hepatic and portal veins.Unremarkable kidneys. No hydronephrosis. Urinary bladder, uterus and adnexa are unremarkable. Atherosclerosis of the aorta without aneurysm. Unremarkable IVC. No adenopathy. Tiny hiatal hernia. No bowel obstruction. There is circumferential wall thickening of the colon extending from the mid transverse segment through the rectum. Partial distention. The appendix is reportedly surgically absent. No small bowel wall thickening or significant inflammatory changes. Unremarkable soft tissues. No acute fracture. Subcortical cystic changes of the right acetabulum. IMPRESSION: 1. No bowel obstruction. 2. Wall thickening of the colon extending from the transverse segment to the rectum may be secondary to partial distention versus a nonspecific proctocolitis. 3. Additional findings as above. ACT 112: Negative or not required by law. The above report was generated using voice recognition software. It may contain grammatical, syntax or spelling errors. Electronically signed by: Dontrell Ellis M.D. 05/17/2021 1:59 PM PG Care Time/CCT Total # of Minutes Spent Total Time Spent with Patient: Total time spent is greater than 50% in coordination of care (as documented) at patient's floor/unit and/or counseling patient: Coding Level of Care Code 13692 Subseq Hosp Care Lvl 3 Diagnoses Abdominal pain R10.9 Hypertension I10 Anxiety F41.9 Nausea R11.0 RSV (respiratory syncytial virus pneumonia) J12.[address] of the abdomen R93.5 Hyponatremia E87.1 Polycythemia D75.1 DVT prophylaxis Z29.9 Tobacco use disorder F17.200 Prediabetes R73.03
[2021-05-17] MEDS: NICOTINE 14 MG/24 HR PATCH TD SCH (12:10)
[2021-05-17 12:32] LABS: Basophils # (auto) 0.04 K/uL (0-0.2); Basophils % (auto) 0.3 %; Hematocrit (blood only) 48.1 % (37-47); Hemoglobin 16.9 g/dL (12.0-16.0); Immature Granulocytes # (auto) 0.03 K/uL (0.00-0.02); Immature Granulocytes % (auto) 0.2 %; Lymphocytes # (auto) 1.32 K/uL (1.2-3.4); Lymphocytes % (auto) 10.6 %; Mean Corpuscular Hemoglobin 29.5 pg (25-34); Mean Corpuscular Hgb Conc 35.1 g/dL (32-36); Mean Corpuscular Volume 83.9 fL (80-100); Mean Platelet Volume 10.3 fL (7.4-10.4); Monocytes # (auto) 1.28 K/uL (0.11-0.59); Monocytes % (auto) 10.3 %; Neutrophils % (auto) 78.6 %; Platelet Count 289 K/uL (130-400); RDW Coefficient of Variation 14.4 % (11.5-14.5); Red Blood Count 5.73 M/uL (4.2-5.4); White Blood Count 12.47 K/uL (4.8-10.8)
[2021-05-17 12:57] LABS: Albumin Globulin Ratio 0.9 (0.9-2); Albumin Level 3.9 gm/dl (3.4-5.0); BUN Creatinine Ratio 9.6 (10-20); C Reactive Protein 0.85 mg/dl (0-0.29); Calcium 9.6 mg/dl (8.5-10.1); Creatinine Clr Calc Pharmacy 74.7 ml/min; Est GFR (African American) 76.5 ml/min; Globulin 4.3 gm/dl (2.5-4.0); Potassium 4.3 mmol/L (3.5-5.1); Total Protein 8.2 gm/dl (6.4-8.2)
[2021-05-17] MEDS ORDERED: OPTIRAY 320 100ml IV ONE (13:45)
[2021-05-17] MEDS: BENZONATATE 100 MG CAPSULE PO SCH ×2 (13:56→21:14)
--- NOTE | 2021-05-17 14:00 | CT Scan Report ---
ABDOMEN AND PELVIS CT WITH IV CONTRAST CT DOSE: 597.91 mGy.cm HISTORY: Acute severe abdominal pain with nausea and vomiting severe abd pain, emesis TECHNIQUE: Multiaxial CT images of the abdomen and pelvis were performed following the IV administrat ion of 95 cc of Optiray, A dose lowering technique was utilized adhering to the principles of ALARA. COMPARISON STUDY: CT abdomen and pelvis 10/27/2020 FINDINGS: Mild bibasilar bronchial wall thickening with mild tree-in-bud nodules of the right lung ba se. No pneumatosis or pneumoperitoneum. Unremarkable spleen, pancreas, gallbladder, adrenal glands an d liver. Patency of the hepatic and portal veins.Unremarkable kidneys. No hydronephrosis. Urinary elmo dder, uterus and adnexa are unremarkable. Atherosclerosis of the aorta without aneurysm. Unremarkable IVC. No adenopathy. Tiny hiatal hernia. No bowel obstruction. There is circumferential wall thickening of the colon exten ding from the mid transverse segment through the rectum. Partial distention. The appendix is reported ly surgically absent. No small bowel wall thickening or significant inflammatory changes. Unremarkabl e soft tissues. No acute fracture. Subcortical cystic changes of the right acetabulum. IMPRESSION: 1. No bowel obstruction. 2. Wall thickening of the colon extending from the transverse segment to the rectum may be secondary to partial distention versus a nonspecific proctocolitis. 3. Additional findings as above. ACT 112: Negative or not required by law. The above report was generated using voice recognition software. It may contain grammatical, syntax o r spelling errors. Electronically signed by: Dontrell Ellis M.D. 05/17/2021 1:59 PM
[2021-05-17] MEDS: SODIUM CHLORIDE 0.9% 1000ML 1,000 ML IV SCH (14:53)
--- NOTE | 2021-05-17 17:35 | Gastrointestinal Consultation ---
Date of Consultation May 17, 2021 Assessment & Plan (1) Abdominal pain: (2) Cyclical vomiting, intractable: (3) Nausea: (4) Abnormal CT scan, colon: (5) Hypertension: (6) Hyponatremia: (7) Current smoker: (8) Marijuana smoker: Impression is Ms. Mathis has a syndrome of recurrent disabling attacks of abdominal pain and vomiting. The etiology of these attacks remains obscure despite appropriate investigation. Acute intermittent porphyria should be considered, this can be ruled out with smple urine testing. The colon wall thickening seen on CT imaging is likely artifact, colitis can be ruled out with flexible sigmoidoscopy. I recommend general support with IV fluids, ondansetron and pain control as needed. I expect that this episode will subside within a few days, as these episodes have in the past. History of Present Illness Reason for Consultation: Recurrent abdominal pain and vomiting Attending Physician: Jeffery Germain History of Present Illness Ms. Mathis is a 51 yo woman admitted with an acute attack of severe generalized abdominal pain accompanied by refractory vomiting. For the past 6 years she has had similar attacks occurring every 3 to 6 months, she estimates 2 to 4 attacks per year. Each attack lasts for several days, then subsides spontaneously. The attacks are completely disabling. Between attacks, she is asymptomatic and has no abdominal pain or vomiting. These attacks come on suddenly, and she is not able to identify any symptom trigger. No new medica tion use or change in diet. The attacks are not associated with recreational marijuana use. 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 She has been hospitalized in the past when symptomatic, and has had evaluation with lab testing, imaging, and upper endoscopy which have all been negative for an explanation for symptoms. There is a past history of chronic Hepatitis C successfully treated and eradicated with a course of interferon and ribavirin. There is no history of inflammatory bowel disease. CT of abdomen and pelvis without oral contrast this admission shows distal colon wall thickening which is likely artifact of incomplete distension of the colon. Patient denies any change in her normal bowel habit, she denies diarrhea and rectal bleeding. No improvement in frequency, duration, or severity of attacks with use of pantoprazole or sucralfate. Liver tests and imaging are negative for any sign of biliary tract disease. Allergies Allergy/AdvReac Type Severity Reaction Status Date / Time codeine AdvReac Mild GI SYMPTOMS Verified 05/17/21 12:20 hydromorphone [From Dilaudid] AdvReac Mild Nausea Verified 05/17/21 12:20 morphine AdvReac Mild N/V Verified 05/17/21 12:20 tramadol AdvReac Mild GI SYMPTOMS Verified 05/17/21 12:20 Home Medications Medication Instructions Recorded Confirmed Type albuterol sulfate 90 mcg/actuation 2 puff INHALATION QID PRN 10/27/20 05/16/21 History aerosol inhaler lisinopril 20 mg tablet 20 mg PO DAILY 10/27/20 05/16/21 History clonazepam 0.5 mg tablet 0.25 mg PO BID 05/16/21 05/16/21 History pantoprazole 40 mg tablet,delayed 40 mg PO DAILY 05/16/21 05/16/21 History release quetiapine 25 mg tablet 50 mg PO HS 05/16/21 05/16/21 History sucralfate 100 mg/mL oral 5 ml PO QID 05/16/21 05/16/21 History suspension Patient History Medical History Anxiety Gastritis Hepatitis C Hx of Crohn's disease Hyperglycemia Hypertension Hypertensive emergency Hypokalemia Leukocytosis Migraine Nausea & vomiting UTI (urinary tract infection) Vomiting Surgical History History of appendectomy History of delivery History of orthopedic surgery Family History Other Hypertension Social History Smoking Status: Current every day smoker Tobacco Type: Cigarettes Cigarettes Per Day: 1 ppd; Second Hand Exposure: No; Hx Alcohol Use: No Hx Substance Use: Yes Last Used Substance: Days (ago) Last Used Substance Other:: month ago Substance Use Type Other:: aprazolam Preferred Language: Brazilian Communication Ability: Effective Water Quality Technician Required: No Beliefs That Will Affect Care: None marital status: Current Living Situation: Family Current Living Situation Comment: daughter lives with patient current occupational status: unemployed Feels Safe at Home: Yes Assistive Devices: None Review of Systems Review of Systems: All systems reviewed & are unremarkable except as noted in HPI & below Physical Exam Constitutional: The patient is in moderate distress with diffuse abdominal pain Respiratory: normal respiratory effort, lungs clear to auscultation Cardiovascular: RRR, no murmur, no edema Gastrointestinal (Abdomen): The abdomen is obese and firm to palpation with normal active bowel sounds, diffuse tenderness and guarding in all 4 quadrants and without rebound tenderness Neurologic: Anxious and in distress, without focal neurologic signs Results & Data ([facility]) Vital Signs (Past 12 Hours) Vital Signs Temp Pulse Resp BP BP Pulse Ox 05/17/21 16:00 98 H 05/17/21 15:41 38.1 C H 111 H 22 145/83 H 90 05/17/21 13:57 75 05/17/21 12:00 108 H 05/17/21 11:22 37.7 C H 109 H 20 145/92 H 92 05/17/21 08:00 95 H 05/17/21 07:38 37.4 C 89 20 216/116 H 92 Laboratory Results Laboratory Results WBC 12.47 K/uL (4.8-10.8) H 05/17/21 12:19 RBC 5.73 M/uL (4.2-5.4) H 05/17/21 12:19 Hgb 16.9 g/dL (12.0-16.0) H 05/17/21 12:19 Hct 48.1 % (37-47) H 05/17/21 12:19 MCV 83.9 fL (80-100) 05/17/21 12:19 MCH 29.5 pg (25-34) 05/17/21 12:19 MCHC 35.1 g/dL (32-36) 05/17/21 12:19 RDW Std Deviation 44.0 fL (36.4-46.3) 05/17/21 12:19 RDW Coeff of Bo 14.4 % (11.5-14.5) 05/17/21 12:19 Plt Count 289 K/uL (130-400) 05/17/21 12:19 MPV 10.3 fL (7.4-10.4) 05/17/21 12:19 Immature Gran % (Auto) 0.2 % 05/17/21 12:19 Neut % (Auto) 78.6 % 05/17/21 12:19 Lymph % (Auto) 10.6 % 05/17/21 12:19 [place] % (Auto) 10.3 % 05/17/21 12:19 Eos % (Auto) 0.0 % 05/17/21 12:19 Baso % (Auto) 0.3 % 05/17/21 12:19 Neut # (Auto) 9.80 K/uL (1.4-6.5) H 05/17/21 12:19 Lymph # (Auto) 1.32 K/uL (1.2-3.4) 05/17/21 12:19 [place] # (Auto) 1.28 K/uL (0.11-0.59) H 05/17/21 12:19 Eos # (Auto) 0.00 K/uL (0-0.5) 05/17/21 12:19 Baso # (Auto) 0.04 K/uL (0-0.2) 05/17/21 12:19 Immature Gran # (Auto) 0.03 K/uL (0.00-0.02) H 05/17/21 12:19 PT 10.2 Seconds (9.0-12.0) 05/16/21 20:24 INR 1.0 (0.9-1.1) 05/16/21 20:24 APTT 27.4 Seconds (21.0-31.0) 05/16/21 20:24 PTT Ratio 1.0 05/16/21 20:24 Sodium 135 mmol/L (136-145) L 05/17/21 12:19 Potassium 4.3 mmol/L (3.5-5.1) 05/17/21 12:19 Chloride 100 mmol/L (98-107) 05/17/21 12:19 Carbon Dioxide 27 mmol/L (21-32) 05/17/21 12:19 Anion Gap 8.0 (3-11) 05/17/21 12:19 BUN 10 mg/dl (7-18) 05/17/21 12:19 Creatinine 0.99 mg/dl (0.6-1.2) 05/17/21 12:19 Est Cr Clr Drug Dosing 74.7 ml/min 05/17/21 12:19 Est GFR ( Amer) 76.5 ml/min 05/17/21 12:19 Est GFR (Non-Af Amer) 66.0 ml/min 05/17/21 12:19 BUN/Creatinine Ratio 9.6 (10-20) L 05/17/21 12:19 Glucose 122 mg/dl (70-99) H 05/17/21 12:19 Lactate 1.7 mmol/L (0.4-2.0) 05/17/21 12:19 Calcium 9.6 mg/dl (8.5-10.1) 05/17/21 12:19 Phosphorus 2.1 mg/dl (2.5-4.9) L 05/17/21 03:37 Magnesium 2.1 mg/dl (1.8-2.4) 05/16/21 21:26 Total Bilirubin 1.0 mg/dl (0.2-1) 05/17/21 12:19 Direct Bilirubin 0.2 mg/dl (0-0.2) 05/17/21 03:37 AST 19 U/L (15-37) 05/17/21 12:19 ALT 29 U/L (12-78) 05/17/21 12:19 Alkaline Phosphatase 50 U/L (45-117) 05/17/21 12:19 Troponin I < 0.015 ng/ml (0-0.045) 05/16/21 20:24 C-Reactive Protein 0.85 mg/dl (0-0.29) H 05/17/21 12:19 Total Protein 8.2 gm/dl (6.4-8.2) 05/17/21 12:19 Albumin 3.9 gm/dl (3.4-5.0) 05/17/21 12:19 Globulin 4.3 gm/dl (2.5-4.0) H 05/17/21 12:19 Albumin/Globulin Ratio 0.9 (0.9-2) 05/17/21 12:19 Lipase 76 U/L (73-393) 05/17/21 12:19 Urine Color Yellow 05/16/21 21:59 Urine Appearance Clear (Clear) 05/16/21 21:59 Urine pH 8.5 (4.5-7.5) H 05/16/21 21:59 Ur Specific [place] 1.014 (1.000-1.030) 05/16/21 21:59 Urine Protein 2+ (Negative) H 05/16/21 21:59 Urine Glucose (UA) Negative (Negative) 05/16/21 21:59 Urine Ketones 2+ (Negative) H 05/16/21 21:59 Urine Blood Negative (Negative) 05/16/21 21:59 Urine Nitrite Negative (Negative) 05/16/21 21:59 Urine Bilirubin Negative (Negative) 05/16/21 21:59 Urine Urobilinogen Negative (Negative) 05/16/21 21:59 Ur Leukocyte Esterase Negative (Negative) 05/16/21 21:59 Urine WBC (Auto) 1-5 /hpf (0-5) 05/16/21 21:59 Urine RBC (Auto) 0-4 /hpf (0-4) 05/16/21 21:59 U Hyaline Cast (Auto) 1-5 /lpf (0-5) 05/16/21 21:59 U Epithel Cells (Auto) >30 /lpf (0-5) H 05/16/21 21:59 Urine Bacteria (Auto) Negative (Negative) 05/16/21 21:59 Urine Opiates Screen Neg (Neg) 05/16/21 21:59 Ur Methadone, Qual Neg (Neg) 05/16/21 21:59 Urine Barbiturates Neg (Neg) 05/16/21 21:59 Ur Phencyclidine (PCP) Neg (Neg) 05/16/21 21:59 U Amphetamin/Meth Scrn Neg (Neg) 05/16/21 21:59 MDMA (Ecstasy) Screen Neg (Neg) 05/16/21 21:59 U Benzodiazepines Scrn Neg (Neg) 05/16/21 21:59 Ur Cocaine Metabolite Neg (Neg) 05/16/21 21:59 U Marijuana (THC) Screen Pos (Neg) H 05/16/21 21:59 COVID-19 Eval Order RESPNP at [facility] 05/17/21 15:56 SARS-CoV-2 (PCR) NEGATIVE (Negative) 05/16/21 23:24 Impressions Chest X-Ray 05/16/21 20:10 XR chest 1V portable CLINICAL HISTORY: vomiting COMPARISON STUDY: Chest radiograph October 28, 2017. FINDINGS: Lung volumes are normal. Lungs are clear. There is no pneumothorax or pleural effusion. Cardiac size is normal. Mediastinal contours are normal. There is no evidence for pulmonary edema. IMPRESSION: No acute cardiopulmonary findings. ACT 112: Negative or not required by law. Electronically signed by: Aleksandar Mcallister M.D. 05/16/2021 8:53 PM KUB X-Ray 05/17/21 06:00 KUB CLINICAL HISTORY: Abdominal pain, nausea and vomiting. COMPARISON STUDY: CT of the abdomen and pelvis October 27, 2020. KUB October 28, 2020. FINDINGS: The bowel gas pattern is normal. No urinary calculi are identified. Left pelvic calcifications are vascular. Although sensitivity is diminished on this supine exam, there is no evidence for free air. IMPRESSION: Unremarkable KUB. ACT 112: Negative or not required by law. Electronically signed by: Aleksandar Mcallister M.D. 05/17/2021 9:43 AM Abdomen/Pelvis CT 05/17/21 12:[address] WITH IV CONTRAST CT DOSE: 597.91 mGy.cm HISTORY: Acute severe abdominal pain with nausea and vomiting severe abd pain, emesis TECHNIQUE: Multiaxial CT images of the abdomen and pelvis were performed following the IV administration of 95 cc of Optiray, A dose lowering technique was utilized adhering to the principles of ALARA. COMPARISON STUDY: CT abdomen and pelvis 10/27/2020 FINDINGS: Mild bibasilar bronchial wall thickening with mild tree-in-bud nodules of the right lung base. No pneumatosis or pneumoperitoneum. Unremarkable spleen, pancreas, gallbladder, adrenal glands and liver. Patency of the hepatic and portal veins.Unremarkable kidneys. No hydronephrosis. Urinary bladder, uterus and adnexa are unremarkable. Atherosclerosis of the aorta without aneurysm. Unremarkable IVC. No adenopathy. Tiny hiatal hernia. No bowel obstruction. There is circumferential wall thickening of the colon extending from the mid transverse segment through the rectum. Partial distention. The appendix is reportedly surgically absent. No small bowel wall thickening or significant inflammatory changes. Unremarkable soft tissues. No acute fracture. Subcortical cystic changes of the right acetabulum. IMPRESSION: 1. No bowel obstruction. 2. Wall thickening of the colon extending from the transverse segment to the rectum may be secondary to partial distention versus a nonspecific proctocolitis. 3. Additional findings as above. ACT 112: Negative or not required by law. The above report was generated using voice recognition software. It may contain grammatical, syntax or spelling errors. Electronically signed by: Dontrell Ellis M.D. 05/17/2021 1:59 PM (1) Abdominal pain Abdominal location: generalized Qualified Code(s): R10.84 - Generalized abdominal pain (2) Hypertension Hypertension type: unspecified Qualified Code(s): I10 - Essential (primary) hypertension
[2021-05-17 17:36] LABS: Adenovirus PCR Not Detected (NotDetected); Bordetella parapertussis PCR Not Detected (NotDetected); Bordetella pertussis PCR Not Detected (NotDetected); Chlamydia pneumoniae PCR Not Detected (NotDetected); Coronavirus 229E PCR Not Detected (NotDetected); Coronavirus CoV-2 (COVID19)PCR Not Detected (NotDetected); Coronavirus HKU1 PCR Not Detected (NotDetected); Coronavirus NL63 PCR Not Detected (NotDetected); Coronavirus OC43PCR Not Detected (NotDetected); Human Metapneumovirus PCR Not Detected (NotDetected); Influenza A PCR Not Detected (NotDetected); Influenza B PCR Not Detected (NotDetected); Mycoplasma pneumoniae PCR Not Detected (NotDetected); Parainfluenza Virus 1 PCR Not Detected (NotDetected); Parainfluenza Virus 2 PCR Not Detected (NotDetected); Parainfluenza Virus 3 PCR Not Detected (NotDetected); Parainfluenza Virus 4 PCR Not Detected (NotDetected); Rhinovirus/Enterovirus PCR Not Detected (NotDetected)
[2021-05-17 17:39] LABS: Respiratory Syncytial VirusPCR DETECTED (NotDetected)
[2021-05-17] MEDS: ACETAMINOPHEN 325 MG TAB PO PRN (19:50)
[2021-05-17] MEDS: LABETALOL HCL 100 MG TAB PO SCH (21:13)
[2021-05-17] MEDS: PANTOprazole 40 MG in SYRINGE 0 ML IV SCH (21:13)
[2021-05-17] MEDS: QUEtiapine FUMARATE 25 MG TABLET PO SCH (21:14)
[2021-05-18] MEDS: SODIUM CHLORIDE 0.9% 1000ML 1,000 ML IV SCH ×2 (03:18→16:26)
[2021-05-18] MEDS ORDERED: ALBUTEROL 0.083% NEBU SOLN 3 ML VIAL NEB STA (03:23)
[2021-05-18] MEDS: oxyCODONE HCL IR 5 MG TAB (IMMEDIATE RELEASE) PO PRN ×3 (03:29→21:15)
[2021-05-18] MEDS ORDERED: COUGH DROP (SUGAR FREE) LOZ 24 LOZ/1 BOX BUCCAL PRN (05:57)
[2021-05-18] MEDS ORDERED: guaiFENesin SUGAR FREE 100 MG/5 ML UDC PO PRN (05:57)
[2021-05-18] MEDS: ACETAMINOPHEN 325 MG TAB PO PRN ×2 (06:12→12:47)
[2021-05-18 06:24] LABS: Basophils # (auto) 0.02 K/uL (0-0.2); Basophils % (auto) 0.2 %; Hematocrit (blood only) 41.7 % (37-47); Hemoglobin 14.5 g/dL (12.0-16.0); Immature Granulocytes # (auto) 0.01 K/uL (0.00-0.02); Immature Granulocytes % (auto) 0.1 %; Lymphocytes # (auto) 1.05 K/uL (1.2-3.4); Lymphocytes % (auto) 9.6 %; Mean Corpuscular Hemoglobin 29.4 pg (25-34); Mean Corpuscular Hgb Conc 34.8 g/dL (32-36); Mean Corpuscular Volume 84.4 fL (80-100); Mean Platelet Volume 10.3 fL (7.4-10.4); Monocytes # (auto) 1.09 K/uL (0.11-0.59); Monocytes % (auto) 9.9 %; Neutrophils # (auto) 8.79 K/uL (1.4-6.5); Neutrophils % (auto) 80.2 %; Platelet Count 210 K/uL (130-400); RDW Coefficient of Variation 14.6 % (11.5-14.5); RDW Standard Deviation 45.4 fL (36.4-46.3); Red Blood Count 4.94 M/uL (4.2-5.4); White Blood Count 10.96 K/uL (4.8-10.8)
[2021-05-18 06:57] LABS: BUN Creatinine Ratio 16.5 (10-20); Calcium 8.7 mg/dl (8.5-10.1); Creatinine Clr Calc Pharmacy 92.2 ml/min; Est GFR (Non-African American) 82.9 ml/min; Potassium 3.6 mmol/L (3.5-5.1)
[2021-05-18] MEDS: SUCRALFATE 1 GM/10 ML UDC PO SCH ×4 (08:18→21:18)
[2021-05-18] MEDS: lisinopril 20 MG TAB PO SCH (08:18)
[2021-05-18] MEDS: NICOTINE 14 MG/24 HR PATCH TD SCH (08:19)
[2021-05-18] MEDS: LABETALOL HCL 100 MG TAB PO SCH ×2 (08:19→21:18)
[2021-05-18] MEDS: BENZONATATE 100 MG CAPSULE PO SCH ×3 (08:19→21:19)
[2021-05-18] MEDS: PANTOprazole 40 MG in SYRINGE 0 ML IV SCH ×2 (08:22→21:19)
[2021-05-18] MEDS: clonazePAM 0.25 MG TAB PO SCH ×2 (08:22→21:15)
--- NOTE | 2021-05-18 09:47 | Gastroenterology Progress Note ---
Date of Service May 18, 2021 Assessment & Plan (1) Abnormal CT of the abdomen: Plan: The patient has had recurrent problems with abdominal pain and vomiting. Colon wall thickening was observed on CT imaging. Plan was for flexible sigmoidoscopy today but this has been canceled due to patient's respiratory status with positive RSV testing. We will follow up on this as an outpatient. Continue general support with IV fluids, Zofran, pain control as needed. We will continue to follow the patient while inpatient. Would slowly advance diet as patient tolerates. Please refer to supervising physician addendum for further recommendations. Admission and Anticipated Discharge Date Admission Date: May 17, 2021 Supervising Physician Co-Signing Physician Notes Records reviewed, the patient interviewed and examined, plan of care reviewed with Amber SAMUEL The patient is currently in respiratory isolation due to lab evidence of acute URI with respiratory syncytial virus. She reports 50% improvement in the abdominal pain, and no episodes of vomiting over the past 24 hours, and she wants to advance the diet beyond clear liquids. No diarrhea or rectal bleeding, no peritoneal signs on abdominal exam. She reports that with these episodes, digestive symptoms are followed by a headache. Urine PBG and porphyrin screen collected yesterday, results pending Further GI evaluation is deferred due to respiratory isolation. Her digestive symptoms are rapidly improving and diet will be advanced, further workup will likely be done following hospital discharge. Continue supportive care. Subjective Patient awake alert and oriented this morning. She does continue to feel poorly. She reports that abdominal pain is approximately a 6 out of 10. She states the pain is primarily left-sided but she does have some epigastric discomfort. Denies any significant nausea or vomiting today. Last bowel movement was yesterday. Denies any melena or hematochezia. She is presently n.p.o. except for ice chips in anticipation of flexible sigmoidoscopy later today. She did have a low-grade temperature through the night per nursing report. She is a current smoker. Smokes approximately 1 pack of cigarettes per day. Denies any alcohol intake. She does recreationally use marijuana. She typically uses tinctures or Gummies. She is with 2 children. She is currently on disability. 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 Review of Systems Review of Systems: All systems reviewed & are unremarkable except as noted in Subjective Physical Exam Constitutional: + ill appearing Respiratory: Auscultation: + rales and + wheezes Gastrointestinal (Abdomen): Inspection/Auscultation: abdomen normal to inspection and normal bowel sounds Percussion/Palpation: + abdomen tender, + guarding and abdomen soft; abdomen not rigid Results & Data ([facility]) Vital Signs (Past 12 Hours) Vital Signs Temp Pulse Pulse Resp BP BP Pulse Ox 05/18/21 09:00 94 05/18/21 08:32 36.8 C 81 18 113/71 90 05/18/21 07:00 93 H 05/18/21 05:24 140/88 05/18/21 05:08 36.9 C 96 H 16 148/101 H 94 05/18/21 04:29 96 H 20 95 05/18/21 00:00 18 92 05/17/21 23:37 36.8 C 82 16 104/71 89 L 05/17/21 23:12 93 H Laboratory Results Laboratory Results - last 24 hr 05/17/21 05/17/21 05/17/21 03:37 12:19 12:19 WBC 12.47 H RBC 5.73 H Hgb 16.9 H Hct 48.1 H MCV 83.9 MCH 29.5 MCHC 35.1 RDW Std Deviation 44.0 RDW Coeff of Bo 14.4 Plt Count 289 MPV 10.3 Immature Gran % (Auto) 0.2 Neut % (Auto) 78.6 Lymph % (Auto) 10.6 [place] % (Auto) 10.3 Eos % (Auto) 0.0 Baso % (Auto) 0.3 Neut # (Auto) 9.80 H Lymph # (Auto) 1.32 [place] # (Auto) 1.28 H Eos # (Auto) 0.00 Baso # (Auto) 0.04 Immature Gran # (Auto) 0.03 H Sodium 132 L 135 L Potassium 4.1 4.3 Chloride 99 100 Carbon Dioxide 27 27 Anion Gap 6.0 8.0 BUN 6 L 10 Creatinine 0.99 0.99 Est Cr Clr Drug Dosing 74.7 74.7 Est GFR ( Amer) 76.5 76.5 Est GFR (Non-Af Amer) 66.0 66.0 BUN/Creatinine Ratio 6.5 L 9.6 L Glucose 188 H 122 H Lactate Calcium 9.6 9.6 Total Bilirubin 1.1 H 1.0 Direct Bilirubin 0.2 AST 17 19 ALT 32 29 Alkaline Phosphatase 55 50 C-Reactive Protein 0.85 H Total Protein 8.9 H 8.2 Albumin 4.2 3.9 Globulin 4.3 H Albumin/Globulin Ratio 0.9 Lipase 76 Ur [place] Porphobilinogen U Porphobilinogen Intrp Ur Total Porphyrins Random Uroporphyrins I Random Uroporphyrin III U Rdm Heptacarboxylpor U Rndm Hexacarboxylpor U Rdm Pentacarboxylpor U Random Coproporphyr I U Rndm Coproporphyr III Ur Porphyrins Interp Adenovirus (PCR) B. pertussis DNA (PCR) B.parapertussis DNA PCR C. pneumoniae DNA (PCR) Coronavirus OC43 (PCR) Coronavirus HKU1 (PCR) Coronavirus 229E (PCR) COVID-19 Eval Order SARS-CoV-2 (PCR) Coronavirus NL63 (PCR) Human Metapneumovir PCR Influenza Type A (PCR) Influenza Type B (PCR) M. pneumoniae (PCR) Parainfluenza 1 (PCR) Parainfluenza 2 (PCR) Parainfluenza 3 (PCR) Parainfluenza 4 (PCR) RSV (PCR) Entero/Rhino (PCR) 05/17/21 05/17/21 05/17/21 12:19 15:56 15:56 WBC RBC Hgb Hct MCV MCH MCHC RDW Std Deviation RDW Coeff of Bo Plt Count MPV Immature Gran % (Auto) Neut % (Auto) Lymph % (Auto) [place] % (Auto) Eos % (Auto) Baso % (Auto) Neut # (Auto) Lymph # (Auto) [place] # (Auto) Eos # (Auto) Baso # (Auto) Immature Gran # (Auto) Sodium Potassium Chloride Carbon Dioxide Anion Gap BUN Creatinine Est Cr Clr Drug Dosing Est GFR ( Amer) Est GFR (Non-Af Amer) BUN/Creatinine Ratio Glucose Lactate 1.7 Calcium Total Bilirubin Direct Bilirubin AST ALT Alkaline Phosphatase C-Reactive Protein Total Protein Albumin Globulin Albumin/Globulin Ratio Lipase Ur [place] Porphobilinogen U Porphobilinogen Intrp Ur Total Porphyrins Random Uroporphyrins I Random Uroporphyrin III U Rdm Heptacarboxylpor U Rndm Hexacarboxylpor U Rdm Pentacarboxylpor U Random Coproporphyr I U Rndm Coproporphyr III Ur Porphyrins Interp Adenovirus (PCR) Not Detected B. pertussis DNA (PCR) Not Detected B.parapertussis DNA PCR Not Detected C. pneumoniae DNA (PCR) Not Detected Coronavirus OC43 (PCR) Not Detected Coronavirus HKU1 (PCR) Not Detected Coronavirus 229E (PCR) Not Detected COVID-19 Eval Order RESPNP at [facility] SARS-CoV-2 (PCR) Not Detected Coronavirus NL63 (PCR) Not Detected Human Metapneumovir PCR Not Detected Influenza Type A (PCR) Not Detected Influenza Type B (PCR) Not Detected M. pneumoniae (PCR) Not Detected Parainfluenza 1 (PCR) Not Detected Parainfluenza 2 (PCR) Not Detected Parainfluenza 3 (PCR) Not Detected Parainfluenza 4 (PCR) Not Detected RSV (PCR) DETECTED A* Entero/Rhino (PCR) Not Detected 05/17/21 05/18/21 05/18/21 23:59 05:58 05:58 WBC 10.96 H RBC 4.94 Hgb 14.5 Hct 41.7 MCV 84.4 MCH 29.4 MCHC 34.8 RDW Std Deviation 45.4 RDW Coeff of Bo 14.6 H Plt Count 210 MPV 10.3 Immature Gran % (Auto) 0.1 Neut % (Auto) 80.2 Lymph % (Auto) 9.6 [place] % (Auto) 9.9 Eos % (Auto) 0.0 Baso % (Auto) 0.2 Neut # (Auto) 8.79 H Lymph # (Auto) 1.05 L [place] # (Auto) 1.09 H Eos # (Auto) 0.00 Baso # (Auto) 0.02 Immature Gran # (Auto) 0.01 Sodium 133 L Potassium 3.6 D Chloride 100 Carbon Dioxide 23 Anion Gap 10.0 BUN 14 Creatinine 0.82 Est Cr Clr Drug Dosing 92.2 Est GFR ( Amer) 96.0 Est GFR (Non-Af Amer) 82.9 BUN/Creatinine Ratio 16.5 Glucose 106 H Lactate Calcium 8.7 Total Bilirubin Direct Bilirubin AST ALT Alkaline Phosphatase C-Reactive Protein Total Protein Albumin Globulin Albumin/Globulin Ratio Lipase Ur [place] Porphobilinogen Pending U Porphobilinogen Intrp Pending Ur Total Porphyrins Pending Random Uroporphyrins I Pending Random Uroporphyrin III Pending U Rdm Heptacarboxylpor Pending U Rndm Hexacarboxylpor Pending U Rdm Pentacarboxylpor Pending U Random Coproporphyr I Pending U Rndm Coproporphyr III Pending Ur Porphyrins Interp Pending Adenovirus (PCR) B. pertussis DNA (PCR) B.parapertussis DNA PCR C. pneumoniae DNA (PCR) Coronavirus OC43 (PCR) Coronavirus HKU1 (PCR) Coronavirus 229E (PCR) COVID-19 Eval Order SARS-CoV-2 (PCR) Coronavirus NL63 (PCR) Human Metapneumovir PCR Influenza Type A (PCR) Influenza Type B (PCR) M. pneumoniae (PCR) Parainfluenza 1 (PCR) Parainfluenza 2 (PCR) Parainfluenza 3 (PCR) Parainfluenza 4 (PCR) RSV (PCR) Entero/Rhino (PCR)
[2021-05-18] MEDS ORDERED: IPRATROPIUM BROMIDE/ALBUTEROL respimat INH INH SCH (17:40)
[2021-05-18] MEDS: methylPREDNISolone 40 MG in SYRINGE 0 ML IV SCH (18:39)
[2021-05-18] MEDS: IPRATROPIUM BROMIDE HFA INHALER INH SCH (19:58)
[2021-05-18] MEDS: ALBUTEROL HFA 8 GM INHALER INH SCH (19:58)
[2021-05-18] MEDS: guaiFENesin 600 MG TABCR PO SCH (21:16)
[2021-05-18] MEDS: QUEtiapine FUMARATE 25 MG TABLET PO SCH (21:18)
--- NOTE | 2021-05-18 21:30 | Hospitalist Progress Note ---
Date of Service May 18, 2021 Assessment & Plan (1) Abdominal pain: Plan: resolved. etiology uncertain. has had recurrent episodes of such over the last few years. has had EGD/colonoscopy without pathology. on one admission an MRCP showed duodenitis. Dr Pitts with [facility] consulted. He advised w/u for porphyria, and he may perform flex sig due to abnormal colon on CT. This will be deferred for now due to the RSV and hypoxia. Change PPI to oral. Carafate. Pain meds. Advance diet as tolerated. Repeat LFTs wnl. Lipase wnl. Of note - patient states she gets headaches in the midst of these episodes -- abdominal migraine??? THC induced (hyperemesis syndrome)? (2) Hypertension: Plan: severe, uncontrolled. on prior admissions had similar presentation. cont lisinopril. added labetalol 100mg BID. BPs much improved with the above. (3) Anxiety: Plan: Chronic Cont Seroquel 50mg po qHS Cont Clonazepam BID (4) Nausea: Plan: see #1 above resolved (5) RSV (respiratory syncytial virus pneumonia): Plan: fever, cough, CT findings (lung cuts on CT a/p with bronchial inflammation and tree-in-bud infiltrates. BioFire ordered - neg for COVID but + for RSV. appropriate precautions ordered. supportive care. added steroids - solumedrol 40 BID. add combivent qid. cont mucinex 1200 BID. NC O2 - wean as tolerated. incentive demetrice/pulm toilet. (6) Abnormal CT of the abdomen: Plan: ?colitis. GI consult appreciated - flex sig was ordered but canceled due to RSV pneumonia. no diarrhea but if she does develop such then order c. diff, stool cx, etc. (7) Hyponatremia: Plan: ongoing but improved. drinking fluids now. d/c IV fluids. (8) Polycythemia: Plan: 2nd to chronic tobacco use and hypoxia. can't rule out element of hemoconcentration. repeat cbc in 2 days. 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 (10) Prediabetes: Plan: a1c 5.8% c/w such will securities counselor (11) DVT prophylaxis: Plan: start heparin or lovenox Admission and Anticipated Discharge Date Admission Date: May 17, 2021 Subjective abd pain resolved no further n/v wants more than clears ongoing headache - had oxycodone -- resolved it does have prior h/o headaches no diarrhea no BRBPR continues with cough/wheezing/congestion Review of Systems Review of Systems: gen - fevers yesterday; none today CV - no chest pain pulm - mild [place]; reports no prior dx of COPD GI - all GI symptoms resolved Physical Exam Physical Exam: gen - looks better today; better hydrated; NAD; mild cough during the visit mouth - MMM neck - no JVD heart - RRR, s1 s2, no murmur lungs - wheezes b/l - worse today; fine rales - scattered; no distress abd - soft, NT, ND, BS+, no HSM ext - no edema vasc - pulses 2+ b/l psych - a/o x 3 Results & Data Results & Data ([facility]) Vital Signs (Past 12 Hours) Vital Signs Temp Pulse Pulse Resp BP Pulse Ox 05/18/21 20:00 71 22 98 05/18/21 19:46 37.0 C 77 16 118/75 96 05/18/21 16:00 75 05/18/21 15:33 36.8 C 75 21 109/68 95 05/18/21 15:03 37.1 C 80 20 117/73 95 05/18/21 11:23 37.0 C 90 21 149/80 H 94 Laboratory Results Laboratory Results - last 24 hr 05/17/21 05/18/21 05/18/21 23:59 05:58 05:58 WBC 10.96 H RBC 4.94 Hgb 14.5 Hct 41.7 MCV 84.4 MCH 29.4 MCHC 34.8 RDW Std Deviation 45.4 RDW Coeff of Bo 14.6 H Plt Count 210 MPV 10.3 Immature Gran % (Auto) 0.1 Neut % (Auto) 80.2 Lymph % (Auto) 9.6 [place] % (Auto) 9.9 Eos % (Auto) 0.0 Baso % (Auto) 0.2 Neut # (Auto) 8.79 H Lymph # (Auto) 1.05 L [place] # (Auto) 1.09 H Eos # (Auto) 0.00 Baso # (Auto) 0.02 Immature Gran # (Auto) 0.01 Sodium 133 L Potassium 3.6 D Chloride 100 Carbon Dioxide 23 Anion Gap 10.0 BUN 14 Creatinine 0.82 Est Cr Clr Drug Dosing 92.2 Est GFR ( Amer) 96.0 Est GFR (Non-Af Amer) 82.9 BUN/Creatinine Ratio 16.5 Glucose 106 H Calcium 8.7 Ur [place] Porphobilinogen Pending U Porphobilinogen Intrp Pending Ur Total Porphyrins Pending Random Uroporphyrins I Pending Random Uroporphyrin III Pending U Rdm Heptacarboxylpor Pending U Rndm Hexacarboxylpor Pending U Rdm Pentacarboxylpor Pending U Random Coproporphyr I Pending U Rndm Coproporphyr III Pending Ur Porphyrins Interp Pending PG Care Time/CCT Total # of Minutes Spent Total Time Spent with Patient: Total time spent is greater than 50% in coordination of care (as documented) at patient's floor/unit and/or counseling patient: Coding Level of Care Code 16045 Subseq Hosp Care Lvl 3 Diagnoses Abdominal pain R10.9 Hypertension I10 Anxiety F41.9 Nausea R11.0 RSV (respiratory syncytial virus pneumonia) J12.[address] of the abdomen R93.5 Hyponatremia E87.1 Polycythemia D75.1 Tobacco use disorder F17.200 Prediabetes R73.03 DVT prophylaxis Z29.9
[2021-05-19] MEDS: oxyCODONE HCL IR 5 MG TAB (IMMEDIATE RELEASE) PO PRN ×4 (05:09→21:24)
[2021-05-19] MEDS: methylPREDNISolone 40 MG in SYRINGE 0 ML IV SCH (06:13)
[2021-05-19 07:33] LABS: Marijuana Quant, GCMS Urine 743 ng/mL (<5)
[2021-05-19] MEDS: IPRATROPIUM BROMIDE HFA INHALER INH SCH ×4 (07:34→19:17)
[2021-05-19] MEDS: ALBUTEROL HFA 8 GM INHALER INH SCH ×4 (07:34→19:16)
[2021-05-19] MEDS ORDERED: BUTALBITAL/ACETAMIN/CAFFEINE TAB PO STA (08:01)
[2021-05-19] MEDS ORDERED: BUTALBITAL/ACETAMIN/CAFFEINE TAB PO ONE (08:46)
[2021-05-19] MEDS: lisinopril 20 MG TAB PO SCH (08:47)
[2021-05-19] MEDS: guaiFENesin 600 MG TABCR PO SCH ×2 (08:48→21:13)
[2021-05-19] MEDS: LABETALOL HCL 100 MG TAB PO SCH (08:48)
[2021-05-19] MEDS: SUCRALFATE 1 GM/10 ML UDC PO SCH ×4 (08:48→21:13)
[2021-05-19] MEDS: NICOTINE 14 MG/24 HR PATCH TD SCH (08:49)
--- NOTE | 2021-05-19 08:50 | Gastroenterology Progress Note ---
Date of Service May 19, 2021 Assessment & Plan (1) Abnormal CT of the abdomen: Plan: The patient has had recurrent problems with abdominal pain and vomiting. Colon wall thickening was observed on CT imaging. We will follow up with flexible sigmoidoscopy as an outpatient. Urine PBG and porphyrin screen collected yesterday, results pending. Consider a.m. cortisol level which could be performed as an outpatient. Continue general support with IV fluids, Zofran, pain control as needed. We will continue to follow the patient while inpatient. Please refer to supervising physician addendum for further recommendations. (2) Abdominal pain: Admission and Anticipated Discharge Date Admission Date: May 17, 2021 Supervising Physician Co-Signing Physician Notes I have seen and examined the patient. I agree with note above by JIMMIE Lambert except as noted below. HPI Pt states abd pain and n/v improved. PE Abdomen pos bs, soft, no guarding nor rebound A/P recurrent n/v--could be cyclic vomiting syndrome. Await porphyria testing. If neg consider check cortisol. F/U with GI on DC Subjective The patient is awake and alert this morning. She unfortunately has a migraine this morning. She states her headache is severe and is overshadowing everythin g. She denies any specific abdominal pain at the current time. She does have nausea but states this is related to her headache. Denies vomiting. She did have a bowel movement this morning and denies melena or hematochezia. She is passing flatus. Review of Systems Review of Systems: All systems reviewed & are unremarkable except as noted in Subjective Physical Exam Constitutional: + ill appearing Respiratory: Auscultation: + rales and + wheezes Gastrointestinal (Abdomen): Inspection/Auscultation: abdomen normal to inspection and normal bowel sounds Percussion/Palpation: + abdomen tender, + guarding and abdomen soft; abdomen not rigid Results & Data ([facility]) Vital Signs (Past 12 Hours) Vital Signs Temp Pulse Pulse Resp BP BP Pulse Ox 05/19/21 07:43 36.9 C 67 20 134/77 90 05/19/21 07:34 59 L 18 90 05/19/21 05:07 36.6 C 61 16 136/73 90 05/18/21 23:42 72 05/18/21 23:01 36.9 C 71 16 118/76 90 Laboratory Results Laboratory Results - last 24 hr 05/16/21 21:59 U Marijuana THC Carboxy 743 H Drug Screen Comment SEE NOTE (1) Abdominal pain Abdominal location: generalized Qualified Code(s): R10.84 - Generalized abdominal pain
[2021-05-19] MEDS: clonazePAM 0.25 MG TAB PO SCH ×2 (08:57→21:13)
[2021-05-19] MEDS: PANTOprazole 40 MG in SYRINGE 0 ML IV SCH (08:57)
[2021-05-19] MEDS: BENZONATATE 100 MG CAPSULE PO SCH ×3 (08:57→21:17)
[2021-05-19] MEDS ORDERED: ENOXAPARIN INJ 40 MG/0.4 ML SYR SQ ONE (10:15)
[2021-05-19] MEDS ORDERED: LORazepam 1 MG TAB PO SCH (17:00)
[2021-05-19] MEDS: ACETAMINOPHEN 325 MG TAB PO PRN (19:31)
--- NOTE | 2021-05-19 21:06 | Hospitalist Progress Note ---
Date of Service May 19, 2021 Assessment & Plan (1) Abdominal pain: Plan: resolved. etiology uncertain. has had recurrent episodes of such over the last few years. has had EGD/colonoscopy without pathology. on a previous admission an MRCP showed duodenitis. Dr Pitts with [facility] consulted. He advised w/u for porphyria. Colon was abnormal-appearing on CT - flex sig planned, then canceled due to RSV bronchitis/pneumonia. Deferred to outpatient. Cont PPI twice daily. Carafate. Pain meds. Tolerating diet. Repeat LFTs wnl. Lipase wnl. Of note - patient states she gets headaches in the midst of these episodes -- abdominal migraine??? THC induced (hyperemesis syndrome)? (2) Hypertension: Plan: severe, uncontrolled at time of admission. on prior admissions had similar presentation. cont lisinopril. added labetalol 100mg BID. This has worked well. in light of migraines, however, change labetalol to inderal. BPs now controlled. (3) Anxiety: Plan: Chronic Cont Seroquel 50mg po qHS Cont Clonazepam BID (4) Nausea: Plan: see #1 above resolved (5) RSV (respiratory syncytial virus pneumonia): Plan: cont precautions and supportive care. cont solumedrol but wean to 30mg BID today. cont combivent qid. cont mucinex 1200 BID. incentive demetrice/pulm toilet. o2 has been weaned off. (6) Abnormal CT of the abdomen: Plan: ?colitis. GI consult appreciated - flex sig was ordered but canceled due to RSV pneumonia. no diarrhea or BRBPR. doubt this was ischemic. (7) Hyponatremia: Plan: nearly normal on 05/18 repeat BMP am (8) Polycythemia: Plan: 2nd to chronic tobacco use and hypoxia. can't rule out element of hemoconcentration. repeat cbc AM. 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 (10) Prediabetes: Plan: a1c 5.8% c/w such will family counselor (11) DVT prophylaxis: Plan: lovenox (12) Migraines: Plan: acute/chronic acute - fioricet, steroids for bronchitis should help propranolol for prophylaxis strongly consider neuro referral at discharge MRI brain ordered - red flags - nocturnal symptoms, worsening headaches, etc Plan: hopefully home tomorrow Admission and Anticipated Discharge Date Admission Date: May 17, 2021 Subjective patient with ongoing, intermittent headaches she has had migraines "for years" dating back to what sounds like a post- spinal headache from an epidural she gets 2-3 migraines each month bifrontal, throbbing, phonophobia, photophobia, nausea/emesis -- all associated symptoms headaches wake her up at night-time I gave fioricet this am to her - helped only a little previously took inderal and elavil for h/a prophylaxis cough/wheezing improved no further fever abd pain - resolved, has not recurred tele overnight wnl Review of Systems Review of Systems: gen - fatigue improving, appetite improving CV - no chest pain pulm - no dyspnea GI - no N/V/D/abd pain Physical Exam Physical Exam: gen - looks good, not coughing during the visit mouth - MMM neck - no JVD heart - RRR, s1 s2, no murmur lungs - mild wheezes today - MUCH improved abd - soft, NT, ND, BS+, no HSM ext - no edema vasc - pulses 2+ b/l psych - a/o x 3 neuro - strength 5/5 x 4 exts Results & Data Results & Data ([facility]) Vital Signs (Past 12 Hours) Vital Signs Temp Pulse Resp BP BP Pulse Ox 05/19/21 19:57 36.8 C 60 16 169/103 H 94 05/19/21 19:17 62 16 93 05/19/21 15:32 36.9 C 55 L 22 154/72 H 94 05/19/21 15:10 51 L 18 94 05/19/21 11:20 36.7 C 59 L 22 136/81 94 05/19/21 11:13 66 18 95 Laboratory Results Laboratory Results - last 24 hr 05/16/21 21:59 U Marijuana THC Carboxy 743 H Drug Screen Comment SEE NOTE PG Care Time/CCT Total # of Minutes Spent Total Time Spent with Patient: Total time spent is greater than 50% in coordination of care (as documented) at patient's floor/unit and/or counseling patient: Coding Level of Care Code 76182 Subseq Hosp Care Lvl 3 Diagnoses Abdominal pain R10.9 Hypertension I10 Anxiety F41.9 Nausea R11.0 RSV (respiratory syncytial virus pneumonia) J12.[address] of the abdomen R93.5 Hyponatremia E87.1 Polycythemia D75.1 Tobacco use disorder F17.200 Prediabetes R73.03 DVT prophylaxis Z29.9 Migraines G43.909
[2021-05-19] MEDS: PROPRANOLOL HCL 10 MG TAB PO SCH (21:13)
[2021-05-19] MEDS: QUEtiapine FUMARATE 25 MG TABLET PO SCH (21:13)
[2021-05-19] MEDS: methylPREDNISolone 30 MG in SYRINGE 0 ML IV SCH (21:14)
[2021-05-19] MEDS: PANTOprazole 40 MG TAB PO SCH (21:14)
--- NOTE | 2021-05-19 21:19 | Magnetic Resonance Report ---
MR brain wo con HISTORY: 51 years-old Female acute/chronic migraines, eval 4 pathology acute migraine headaches COMPARISON: Head CT 09/23/2019 TECHNIQUE: Multiplanar multisequence MRI of the brain was obtained without the use of IV contrast FINDINGS: Optical Assistant localizer images demonstrate no gross extracranial abnormality. No restricted diffusion to sugg est acute or subacute infarct. No pathologic blooming artifact. No acute intracranial hemorrhage, mid line shift, abnormal extra-axial collection, hydrocephalus or intracranial mass. Motion degraded exam . Mild patchy T2/FLAIR hyperintense foci noted within the white matter. Cerebral venous sinuses and major arterial flow voids appear patent. Mastoid air cells are clear. Mil d mucosal thickening of the paranasal sinuses. The skull, orbits and soft tissues are unremarkable. IMPRESSION: 1. No acute intracranial abnormality. No acute or subacute infarct. 2. Mild scattered T2/FLAIR hyperintense foci throughout the subcortical and periventricular white mat ter are nonspecific. Sequela of chronic migraines versus chronic microvascular ischemic disease are t he primary differential considerations. ACT 112: Negative or not required by law. The above report was generated using voice recognition software. It may contain grammatical, syntax o r spelling errors. Electronically signed by: Dontrell Ellis M.D. 05/19/2021 9:18 PM
[2021-05-20] MEDS: oxyCODONE HCL IR 5 MG TAB (IMMEDIATE RELEASE) PO PRN ×3 (01:38→10:22)
[2021-05-20] MEDS: ALBUTEROL HFA 8 GM INHALER INH SCH (07:25)
[2021-05-20] MEDS: IPRATROPIUM BROMIDE HFA INHALER INH SCH (07:26)
[2021-05-20] MEDS ORDERED: ALBUTEROL HFA 8 GM INHALER INH PRN (07:42)
[2021-05-20 08:02] LABS: Hemoglobin 14.1 g/dL (12.0-16.0); Mean Corpuscular Hgb Conc 34.4 g/dL (32-36); Mean Corpuscular Volume 84.4 fL (80-100); Mean Platelet Volume 11.1 fL (7.4-10.4); Platelet Count 226 K/uL (130-400); RDW Coefficient of Variation 14.5 % (11.5-14.5); RDW Standard Deviation 45.1 fL (36.4-46.3); Red Blood Count 4.86 M/uL (4.2-5.4); White Blood Count 14.98 K/uL (4.8-10.8)
[2021-05-20 08:42] LABS: BUN Creatinine Ratio 23.8 (10-20); Calcium 9.2 mg/dl (8.5-10.1); Creatinine Clr Calc Pharmacy 94.3 ml/min; Est GFR (African American) 98.9 ml/min; Est GFR (Non-African American) 85.4 ml/min
[2021-05-20] MEDS: clonazePAM 0.25 MG TAB PO SCH (08:55)
[2021-05-20] MEDS: BENZONATATE 100 MG CAPSULE PO SCH (08:55)
[2021-05-20] MEDS: SUCRALFATE 1 GM/10 ML UDC PO SCH (08:55)
[2021-05-20] MEDS: methylPREDNISolone 30 MG in SYRINGE 0 ML IV SCH (08:56)
[2021-05-20] MEDS: NICOTINE 14 MG/24 HR PATCH TD SCH (08:56)
[2021-05-20] MEDS: lisinopril 20 MG TAB PO SCH (08:56)
[2021-05-20] MEDS: PROPRANOLOL HCL 10 MG TAB PO SCH (08:56)
[2021-05-20] MEDS: guaiFENesin 600 MG TABCR PO SCH (08:56)
[2021-05-20] MEDS: PANTOprazole 40 MG TAB PO SCH (08:56)
[2021-05-20] MEDS ORDERED: ENOXAPARIN INJ 40 MG/0.4 ML SYR SQ SCH (09:00)
--- NOTE | 2021-05-20 10:31 | Discharge Summary ---
Date of Service date of admission - May 17, 2021 date of discharge - May 20, 2021 Admission HPI Per Admitting Provider Charleen Mathis is a 51yo female presenting with 2 days of epigastric abdominal pain, severe nausea with multiple episodes of non-bloody/non-bilious emesis. Patient states she has been taking her blood pressure medications at home - is uncertain if she has vomited them up. She is complaining of mild shortness of breath as well. Otherwise denies fever, chills, chest pain, diarrhea, constipation. Patient was admitted to [facility] in October 2020 for similar complaints of epigastric abdominal pain and nausea as well as severe hypertension. She was found to have duodenitis diagnosed by ERCP which was treated with Protonix as well as Cefepime and Flagyl. She was discharged home to complete a course of Cipro/Flagyl and to continue BID Protonix. ER Course: Haldol, Labetalol, Lisinopril, Ativan, NSS, Promethazine, Pepcid, Maalox Principal Diagnosis 1. hypertensive urgency 2. abdominal pain 3. RSV pneumonia 4. severe migraine headache Discharge Exam gen - best she has looked during the admission, NAD, a/o x 3 mouth - MMM neck - no JVD heart - RRR, s1 s2, no murmur lungs - minimal wheezes b/l, no rales, no increased work of breathing abd - soft, NT, ND, BS+, no HSM ext - no edema vasc - pulses 2+ b/l psych - a/o x 3 neuro - strength 5/5 x 4 exts Discharge Data Allergies Allergy/AdvReac Type Severity Reaction Status Date / Time codeine AdvReac Mild GI SYMPTOMS Verified 05/17/21 12:20 hydromorphone [From Dilaudid] AdvReac Mild Nausea Verified 05/17/21 12:20 morphine AdvReac Mild N/V Verified 05/17/21 12:20 tramadol AdvReac Mild GI SYMPTOMS Verified 05/17/21 12:20 Consultations [facility] Gastroenterology Procedures Performed Bio[employer] Respiratory panel - POSITIVE for RSV Ordered Studies Chest X-Ray 05/16/21 20:10 XR chest 1V portable CLINICAL HISTORY: vomiting COMPARISON STUDY: Chest radiograph October 28, 2017. FINDINGS: Lung volumes are normal. Lungs are clear. There is no pneumothorax or pleural effusion. Cardiac size is normal. Mediastinal contours are normal. There is no evidence for pulmonary edema. IMPRESSION: No acute cardiopulmonary findings. ACT 112: Negative or not required by law. Electronically signed by: Aleksandar Mcallister M.D. 05/16/2021 8:53 PM KUB X-Ray 05/17/21 06:00 KUB CLINICAL HISTORY: Abdominal pain, nausea and vomiting. COMPARISON STUDY: CT of the abdomen and pelvis October 27, 2020. KUB October 28, 2020. FINDINGS: The bowel gas pattern is normal. No urinary calculi are identified. Left pelvic calcifications are vascular. Although sensitivity is diminished on this supine exam, there is no evidence for free air. IMPRESSION: Unremarkable KUB. ACT 112: Negative or not required by law. Electronically signed by: Aleksandar Mcallister M.D. 05/17/2021 9:43 AM Abdomen/Pelvis CT 05/17/21 12:[address] WITH IV CONTRAST CT DOSE: 597.91 mGy.cm HISTORY: Acute severe abdominal pain with nausea and vomiting severe abd pain, emesis TECHNIQUE: Multiaxial CT images of the abdomen and pelvis were performed following the IV administration of 95 cc of Optiray, A dose lowering technique was utilized adhering to the principles of ALARA. COMPARISON STUDY: CT abdomen and pelvis 10/27/2020 FINDINGS: Mild bibasilar bronchial wall thickening with mild tree-in-bud nodules of the right lung base. No pneumatosis or pneumoperitoneum. Unremarkable spleen, pancreas, gallbladder, adrenal glands and liver. Patency of the hepatic and portal veins.Unremarkable kidneys. No hydronephrosis. Urinary bladder, uterus and adnexa are unremarkable. Atherosclerosis of the aorta without aneurysm. Unremarkable IVC. No adenopathy. Tiny hiatal hernia. No bowel obstruction. There is circumferential wall thickening of the colon extending from the mid transverse segment through the rectum. Partial distention. The appendix is reportedly surgically absent. No small bowel wall thickening or significant inflammatory changes. Unremarkable soft tissues. No acute fracture. Subcortical cystic changes of the right acetabulum. IMPRESSION: 1. No bowel obstruction. 2. Wall thickening of the colon extending from the transverse segment to the rectum may be secondary to partial distention versus a nonspecific proctocolitis. 3. Additional findings as above. ACT 112: Negative or not required by law. The above report was generated using voice recognition software. It may contain grammatical, syntax or spelling errors. Electronically signed by: Dontrell Ellis M.D. 05/17/2021 1:59 PM Brain MRI 05/19/21 15:09 MR brain wo con HISTORY: 51 years-old Female acute/chronic migraines, eval 4 pathology acute migraine headaches COMPARISON: Head CT 09/23/2019 TECHNIQUE: Multiplanar multisequence MRI of the brain was obtained without the use of IV contrast FINDINGS: Buttonhole Tacker localizer images demonstrate no gross extracranial abnormality. No restricted diffusion to suggest acute or subacute infarct. No pathologic blooming artifact. No acute intracranial hemorrhage, midline shift, abnormal extra-axial collection, hydrocephalus or intracranial mass. Motion degraded exam. Mild patchy T2/FLAIR hyperintense foci noted within the white matter. Cerebral venous sinuses and major arterial flow voids appear patent. Mastoid air cells are clear. Mild mucosal thickening of the paranasal sinuses. The skull, orbits and soft tissues are unremarkable. IMPRESSION: 1. No acute intracranial abnormality. No acute or subacute infarct. 2. Mild scattered T2/FLAIR hyperintense foci throughout the subcortical and periventricular white matter are nonspecific. Sequela of chronic migraines versus chronic microvascular ischemic disease are the primary differential considerations. ACT 112: Negative or not required by law. The above report was generated using voice recognition software. It may contain grammatical, syntax or spelling errors. Electronically signed by: Dontrell Ellis M.D. 05/19/2021 9:18 PM Hospital Course (1) Abdominal pain: resolved. etiology uncertain. has had recurrent episodes of such over the last few years. has had EGD/colonoscopy in the past without pathology. on a previous admission an MRCP showed duodenitis. Dr Blayne Pitts with [facility] was consulted. He advised work-up for porphyria. Colon was abnormal-appearing on CT - flex sig was initially planned, then canceled due to RSV bronchitis/pneumonia. Deferred to the outpatient setting. The patient was continued on PPI twice daily along with carafate. Once nausea/emesis resolved she was resumed on a diet and tolerated such. LFTs wnl. Lipase wnl. Of note - patient states she gets headaches in the midst of these episodes -- abdominal migraine??? THC induced (hyperemesis syndrome)? Other? Again Gastroenterology sent work-up for porphyria. She will need close f/u with [facility] for this recurrent problem. (2) Hypertension: severe, uncontrolled at time of admission. on prior hospital admissions she had a similar presentation. with time her BPs normalized with ease. in light of migraines she was placed on short-acting inderal than changed to inderal LA at discharge. she will continue lisinopril as well. if she continues with episodes of nausea, emesis and markedly elevated blood pressures consider work-up for pheochromocytoma. (3) RSV (respiratory syncytial virus pneumonia): The patient reported cough and wheezing upon admission. Shortly after admission she developed low-grade fevers. She underwent a Bio[employer] respiratory panel that was positive for RSV. COVID testing was negative. CT chest showed infiltrates. She received steroids, nebs, and supportive care. O2 was weaned off, and she will continue pulmonary toilet at home. I am concerned that patient has underlying COPD and should have follow-up and additional work-up for this (PFTs, etc). (4) Anxiety: Chronic Cont Seroquel 50mg po qHS Cont Clonazepam BID (5) Nausea: see #1 above resolved (6) Abnormal CT of the abdomen: ?colitis. GI consult appreciated - flex sig was ordered but canceled due to RSV pneumonia. no diarrhea or BRBPR while here. doubt this questionable colitis was due to ischemia. (7) Hyponatremia: lowest Na was 132 Na 138 on day of discharge (8) Polycythemia: 2nd to chronic tobacco use and hypoxia. can't rule out element of hemoconcentration at time of admission. discharge Hb 14.1. (9) Tobacco use disorder: nicoderm patch counseled to quit (10) Prediabetes: Hba1c 5.8% c/w such (11) Migraines: acute/chronic acute - fioricet and steroids were employed propranolol for chronic prophylaxis with the above her headache improved MRI brain was obtained - see full report in this document, but no evidence of stroke, tumor, etc. Total Time Total Time Spent Total Time Spent (In Minutes): 45 Discharge Plan Discharge Items Patient Disposition: Home - Self-Care Reason For Visit: HYPERTENSIVE URGENCY, ABDOMINAL PAIN Discharge Diagnosis: 1. Hypertensive urgency (very high blood pressure) - improved 2. Abdominal pain - improved; exact cause uncertain; abdominal "migraine"? other? GI follow-up needed 3. RSV bronchitis/pneumonia - improving 4. Concern for underlying "COPD" - follow-up with PCP needed 5. Acute on chronic migraines 6. "pre" diabetes; hemoglobin a1c 5.8%; see handout Activity: Resume your previous activity Activity Comment: gradually increase as tolerated over the next week Driving/Machine Use: NO driving if you are taking percocet or fioricet Non-emergency contact: Primary Care Provider and Kitchen Clerk Call non-emergency contact if: you have any medication questions, your symptoms worsen and you have a fever Follow-up/Referrals: Amber Hernandes CRNP [Nurse Practitioner] - 06/06/21 11:20 am (Dr. Pitts is unavailable. Please follow up with JIMMIE Lambert on Sunday06/06/21 at 11:20 am. Please arrive to the office at 11:00 am for your appointment. If you are unable to keep this appointment, please call the office to reschedule at [phone].) Fabián Feliciano D.O. [Outside Practitioners] - (Dr. Feliciano is unavailable.) Miky Aquino DO [Outside Practitioners] - 05/24/21 2:45 pm (Dr. Feliciano is unavailable. Please follow up with Dr. Aquino on Sunday05/24/21 at 2:45 pm. Please arrive to the office at 2:30 pm for your appointment. If you are unable to keep this appointment, please call the office to reschedule at [phone].) Blayne Pitts MD [Physician] - (Dr. Pitts is unavailable. ) PCP,NO [Primary Care Provider] - Diet: Heart Healthy Add Attending Provider Instructions: Ms Mathis, You were treated for the problems listed above in "discharge diagnoses." Once your vomiting resolved your blood pressures normalized. A CAT scan of the abdomen & pelvis did not show a specific cause for your vomiting. There was questionable "colitis" on the CAT scan but you never had symptoms of that type of condition. Dr Pitts was wanting to do a sigmoidoscopy but it was canceled because of your RSV infection. Your low-grade fever, cough and wheezing were all due to RSV bronchitis/pneumonia. This is a common respiratory virus seen in children and adults. The symptoms often last for up to 2 weeks or slightly longer. The cough will be the last symptom to finally resolve. We performed MRI of the brain to ensure you did not have a stroke or tumor causing your headaches. These were NOT found. We did see "spots & dots" - a common finding in people with long-standing migraines or high blood pressure. There is nothing to do for that finding except control your headaches and blood pressures better. Recommendations - 1. for migraine - * may take the fioricet - 1 tab every 6 hours as needed for headache * if this is not effective may take the oxycodone every 6-8 hours as needed; DO NOT TAKE THE OXYCODONE and FIORICET at the same time; do not drive a vehicle if you are taking any of these 2 medications; do NOT drink alcohol while taking either of these medications * keep a log of possible migraine triggers - foods, etc * START inderal LA (propranolol LA) 60mg once daily for migraine prevention and high blood pressure 2. high blood pressure - * STOP the lisinopril for now * START the inderal LA as noted above; you can start the inderal LA on 05/21/21 3. for RSV infection - * finish a prednisone course; start the prednisone TOMORROW on 05/21; take prednisone w/ food * tessalon pearles 100mg every 8 hours as needed for cough * albuterol via spacer device - 2 puffs 4 times a day for 7-10 days * may take [id number] mucinex up to 1200mg twice daily for cough/congestion as well 4. tobacco use - * please speak to your family doctor about ways to quit 5. pre-diabetes - we have discovered that you are at the beginnings of "pre- diabetes"; there is nothing specific to do other than have it monitored by your family doctor; please see handouts regarding pre-diabetes and follow-up with your family doctor 6. stomach pains - continue your usual medications; follow-up with Dr Pitts for this. Please continue to NOT use marijuana as this can cause vomiting episodes. Follow-up - see separate section Return to any hospital if - * you have worsening shortness of breath * you have chest pains * your migraine worsens despite the medications * you are having constant vomiting * you have blood pressures that are 180 or higher consistently * any other concerns Please feel better and take good care! Dr Germain Pending Studies at Discharge: Yes Studies:: Urine studies for a condition called "porphyria" Stand-Alone Forms: My [facility], Smoking Cessation Medications and DC Order Prescriptions: New benzonatate [Tessalon Perles] 100 mg Capsule 100 mg PO TID PRN (Reason: Cough) Qty: 20 RF: 0 oxycodone 5 mg Tablet 5 mg PO Q4H PRN (Reason: headache pain) Qty: 5 RF: 0 propranolol [Inderal LA] 60 mg capsule,extended release 24 hr 60 mg PO DAILY Qty: 30 RF: 1 prednisone 10 mg tablet 10 mg PO .daily as directed Qty: 16 RF: 0 [id number] [Fioricet] 50-300-40 mg capsule 1 cap PO Q6H PRN (Reason: headache pain) Qty: 10 RF: 0 Continued quetiapine 25 mg tablet 50 mg PO HS RF: 0 sucralfate 100 mg/mL suspension 5 ml PO QID RF: 0 clonazepam 0.5 mg tablet 0.25 mg PO BID RF: 0 pantoprazole 40 mg tablet,delayed release (DR/EC) 40 mg PO BID Qty: 0 RF: 0 albuterol sulfate 90 mcg/actuation HFA aerosol inhaler 2 puff INHALATION QID PRN (Reason: Shortness Of Breath Or Wheezing or Cough) Qty: 8.5 RF: 0 Discontinued lisinopril 20 mg tablet 20 mg PO DAILY RF: 0 Discharge Orders: Discharge Order (Routine); Ordered 05/20/21 Ordered By: Jeffery Vasquez/Other Patient Handouts: Prediabetes, Headache Migraine Triggers Prevent, Headache Migraine Meds Lifestyle, RSV (Respiratory Syncytial Virus) Admission Data Admit Date/Time: 05/17/21 18:07 Attending Provider: Jeffery Germain Admit Provider: Andreea Medina Primary Care Provider: PCP,NO Other Providers: Andreea Medina ; Blayne Pitts Other Interventions: Discharge Summary Assessment (RN) Last Done: 05/20/21 10:08 Coding Level of Care Code D/C DAY MANAGEMENT >30 MINS Diagnoses Abdominal pain R10.9 Hypertension I10 Anxiety F41.9 Nausea R11.0 RSV (respiratory syncytial virus pneumonia) J12.[address] of the abdomen R93.5 Hyponatremia E87.1 Polycythemia D75.1 Tobacco use disorder F17.200 Prediabetes R73.03 Migraines G43.909
[2021-05-27 19:32] LABS: Coproporphyrins I Random Ur 36.8 (6.5-33.2); Coproporphyrins III Random Ur 118.8 (4.8-88.6); Heptacarboxylporphyrins Urine 1.8 (< OR = 3.4); Pentacarboxylporph Ur 1.8 (< OR = 4.1); Porphyrins Total Urine 184.6 (27.0-153.6)
== END 2021-05-20 12:26 | disposition home or self-care (01) | DRG 393 ==
LOC: ED 20:04 → 2S 20:04 → SUATTDRO 23:44 → 2S 05-17 02:25
DX: J44.9 Chronic obstructive pulmonary disease, unspecified; D75.1 Secondary polycythemia; E87.1 Hypo-osmolality and hyponatremia; K52.9 Noninfective gastroenteritis and colitis, unspecified; Z88.5 Allergy status to narcotic agent; Z79.899 Other long term (current) drug therapy; I10 Essential (primary) hypertension; R73.03 Prediabetes; I16.0 Hypertensive urgency; Z20.822 Contact with and (suspected) exposure to COVID-19; R10.9 Unspecified abdominal pain; G43.D0 Abdominal migraine, not intractable; F17.210 Nicotine dependence, cigarettes, uncomplicated; Z51.81 Encounter for therapeutic drug level monitoring; F41.9 Anxiety disorder, unspecified; J12.1 Respiratory syncytial virus pneumonia; K29.70 Gastritis, unspecified, without bleeding; Z82.49 Family history of ischemic heart disease and other diseases of the circulatory system; E80.21 Acute intermittent (hepatic) porphyria

== ENCOUNTER 2021-07-12 12:08 | Observation (INO) ==
[2021-07-12 12:40] LABS: Basophils # (auto) 0.04 K/uL (0-0.2); Basophils % (auto) 0.2 %; Eosinophils # (auto) 0.01 K/uL (0-0.5); Eosinophils % (auto) 0.1 %; Hematocrit (blood only) 48.2 % (37-47); Hemoglobin 16.7 g/dL (12.0-16.0); Immature Granulocytes # (auto) 0.04 K/uL (0.00-0.02); Immature Granulocytes % (auto) 0.2 %; Lymphocytes % (auto) 6.8 %; Mean Corpuscular Hemoglobin 29.5 pg (25-34); Mean Corpuscular Hgb Conc 34.6 g/dL (32-36); Mean Platelet Volume 10.8 fL (7.4-10.4); Monocytes # (auto) 0.52 K/uL (0.11-0.59); Neutrophils # (auto) 15.74 K/uL (1.4-6.5); Neutrophils % (auto) 89.7 %; Platelet Count 390 K/uL (130-400); RDW Coefficient of Variation 14.2 % (11.5-14.5); RDW Standard Deviation 43.7 fL (36.4-46.3); Red Blood Count 5.67 M/uL (4.2-5.4); White Blood Count 17.55 K/uL (4.8-10.8)
--- NOTE | 2021-07-12 13:01 | Emergency Department Note ---
Impression & Plan Hypertensive emergency, Nausea & vomiting ED Provider Note NAME: EDU SOLORIO AGE: 51 SEX: F : 1970 ARRIVES VIA: Ambulance INFORMANT: Patient, ED PROVIDER(S): Tray Guaman MD Chief Complaint: Abdominal pain, nausea HPI: Patient does present with the above complaints and states that her abdominal pain began around 6 AM this morning. The patient describes it as sharp and achy and located in the lower abdomen. The patient denies any recent falls or trauma. Patient did have vomiting the patient was concerned about having some vomiting of blood. Patient denies any blood thinners. Patient denies any prior history of EGD. Patient does have a history of Crohn's. Patient did try to take some pain medication today but this did not seem to team to improve her symptoms. The patient denies any alcohol tobacco or drug use. Patient has any fevers or chills. Patient is vaccinated for Covid. Patient states that the same that his symptoms have been constant. No remitting or exacerbating factors. The patient denies any recent falls trauma or being struck in the abdomen. Patient denies any dysuria or hematuria. ROS: See HPI for pertinent positives and negatives. A total of 10 systems were reviewed and otherwise negative. Past medical history: See below Surgical history: See below Social history: See below Physical Exam: GENERAL: Uncomfortable in appearance. EYE EXAM: Normal conjunctiva. PERRL, no anisocoria and EOM's grossly intact w/o pain. [OROPHARYNX: Moist mucus membranes. Edentulous. NECK: Supple, no nuchal rigidity, no adenopathy, non-tender. No signs of meningismus. LUNGS: Clear to auscultation. Normal chest wall mechanics. HEART: NSR, no MRG. ABDOMEN: Abdomen soft, right lower quadrant suprapubic discomfort without upper abdominal pain, normo-active bowel sounds, no masses, no rebound or guarding. BACK: No CVA TTP. SKIN: No rashes and no bruising. UPPER EXTREMITIES: Upper extremities are grossly normal. LOWER EXTREMITIES: Grossly normal, no edema. NEURO EXAM: A&O x3, cranial nerves II-XII grossly intact, normal speech, moves all 4 extremities on command w/o issue. Differential diagnoses: Appendicitis, ovarian cyst, ovarian torsion, ectopic , TOA, PID, infections, diverticulitis, UTI, obstruction, mesenteric ischemia, aortic pathology, inflammatory bowel disease, renal colic, PUD, pancreatitis, biliary pathology, hernia, volvulus, constipation, as well as other pathologies. Course: Patient was seen and evaluated the bedside. Full history physical exam was performed. Imaging Studies: See Below [Cardiac monitoring: An order was placed for continuous cardiac monitoring. The monitor shows a rate of 91 with sinus rhythm.] MDM: Patient did present with abdominal pain nausea vomiting. The patient does use marijuana but denies other drugs. The patient does use tobacco. The patient did continue to get up and out of bed reportedly had been moving toilet paper. Patient was redirectable but given the patient's elevated blood pressure I was concerned about hypertensive emergency. The patient did receive additional antiemetics and was given 2 doses of labetalol 10 minutes apart and the patient did have significant improvement in blood pressure and demeanor. Patient CT head showed maxillary sinus disease but no ICH. CT abdomen pelvis was negative. I did speak to the on-call hospitalist Dr. Anderson and the patient was admitted to the medicine service. Critical Care: I have personally spent 36 minutes of critical care time in direct management of this patient. This includes bedside care, interpretation of diagnostic studies, and testing, discussion with consultants, patient, and family members, and other require inpatient management activities. This 36 minutes is in excess of all separately billable procedures. Past Med/Surg History Medical History Anxiety Gastritis Hepatitis C Hx of Crohn's disease Hyperglycemia Hypertension Hypertensive emergency Hypokalemia Leukocytosis Migraine Nausea & vomiting UTI (urinary tract infection) Vomiting Surgical History History of appendectomy History of delivery History of orthopedic surgery Family History Other Hypertension Social History Smoking Status: Current every day smoker Tobacco Type: Cigarettes Cigarettes Per Day: 1 ppd; Second Hand Exposure: No; Hx Alcohol Use: No Hx Substance Use: Yes Last Used Substance: Days (ago) Last Used Substance Other:: month ago Substance Use Type Other:: aprazolam Preferred Language: [place] Communication Ability: Effective 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 Beliefs That Will Affect Care: None marital status: Current Living Situation: Family Current Living Situation Comment: daughter lives with patient current occupational status: unemployed How many Children do You have: 2 Feels Safe at Home: Yes Assistive Devices: None Allergies Allergies Allergy/AdvReac Type Severity Reaction Status Date / Time codeine AdvReac Mild GI SYMPTOMS Verified 07/12/21 16:55 hydromorphone [From Dilaudid] AdvReac Mild Nausea Verified 07/12/21 16:55 morphine AdvReac Mild N/V Verified 07/12/21 16:55 tramadol AdvReac Mild GI SYMPTOMS Verified 07/12/21 16:55 Home Meds Home Medications Medication Instructions Recorded Confirmed clonazepam 0.5 mg tablet 0.25 mg PO BID 05/16/21 07/12/21 quetiapine 25 mg tablet 50 mg PO HS 05/16/21 07/12/21 sucralfate 100 mg/mL oral 5 ml PO QID 05/16/21 07/12/21 suspension fluticasone propionate 50 2 spray INTRANASAL DAILY 07/12/21 07/12/21 mcg/actuation nasal spray,suspension ipratropium 0.5 mg-albuterol 3 mg 3 ml INHALATION Q6H PRN 07/12/21 07/12/21 (2.5 mg base)/3 mL nebulization soln lisinopril 20 mg tablet 20 mg PO DAILY 07/12/21 07/12/21 Previous Rx's Medication Instructions Recorded albuterol sulfate 90 mcg/actuation 2 puff INHALATION QID PRN #8.5 g 05/20/21 aerosol inhaler [id number] 1 cap PO Q6H PRN #10 cap 05/20/21 50 mg-300 mg-40 mg capsule (Fioricet) pantoprazole 40 mg tablet,delayed 40 mg PO BID #0 tab 05/20/21 release propranolol 60 mg capsule,24 60 mg PO DAILY #30 cap 05/20/21 hr,extended release (Inderal LA) Results & Data (ED) Vital Signs Vital Signs - 24 hr 07/12/21 12:21 07/12/21 12:34 07/12/21 13:53 Temperature 37 C Temperature Source Oral Pulse Rate 92 H Pulse Rate [Apical] Pulse Rhythm [Apical] Pulse Strength [Apical] Respiratory Rate 24 Respiratory Effort / Characteristics Respiratory Depth Blood Pressure 220/122 H Blood Pressure [Right Arm] Blood Pressure Mean 154 Blood Pressure Mean [Right Arm] Pulse Oximetry 98 Oxygen Delivery Method Room Air Room Air Room Air Sepsis Recent Fever Within 48 Hours No Sepsis New/Unexplained Change in Mental Status No Sepsis Action Taken by Nursing No Action Required 07/12/21 15:00 07/12/21 15:55 07/12/21 16:45 Temperature Temperature Source Pulse Rate Pulse Rate [Apical] 92 H 98 H 92 H Pulse Rhythm [Apical] Regular Regular Pulse Strength [Apical] Normal Respiratory Rate 18 16 18 Respiratory Effort / Characteristics Non-Labored Non-Labored Non-Labored Respiratory Depth Normal Normal Normal Blood Pressure Blood Pressure [Right Arm] 245/138 H 252/157 H 144/104 H Blood Pressure Mean Blood Pressure Mean [Right Arm] 173 188 117 Pulse Oximetry 97 95 98 Oxygen Delivery Method Room Air Room Air Room Air Sepsis Recent Fever Within 48 Hours Sepsis New/Unexplained Change in Mental Status Sepsis Action Taken by Nursing 07/12/21 17:00 Temperature Temperature Source Pulse Rate 89 Pulse Rate [Apical] Pulse Rhythm [Apical] Pulse Strength [Apical] Respiratory Rate Respiratory Effort / Characteristics Respiratory Depth Blood Pressure 124/96 Blood Pressure [Right Arm] Blood Pressure Mean 105 Blood Pressure Mean [Right Arm] Pulse Oximetry Oxygen Delivery Method Sepsis Recent Fever Within 48 Hours Sepsis New/Unexplained Change in Mental Status Sepsis Action Taken by Shelter Medications Current Medication List: was personally reviewed by me Laboratory Data Attestation: I reviewed the patient's lab results. Result diagrams: 07/12/21 12:17 07/12/21 12:17 Lab Results 07/12/21 07/12/21 Range/Units 12:17 12:17 WBC 17.55 H (4.8-10.8) K/uL RBC 5.67 H (4.2-5.4) M/uL Hgb 16.7 H (12.0-16.0) g/dL Hct 48.2 H (37-47) % MCV 85.0 (80-100) fL MCH 29.5 (25-34) pg MCHC 34.6 (32-36) g/dL RDW Std Deviation 43.7 (36.4-46.3) fL RDW Coeff of Bo 14.2 (11.5-14.5) % Plt Count 390 (130-400) K/uL MPV 10.8 H (7.4-10.4) fL Immature Gran % (Auto) 0.2 % Neut % (Auto) 89.7 % Lymph % (Auto) 6.8 % Cannon % (Auto) 3.0 % Eos % (Auto) 0.1 % Baso % (Auto) 0.2 % Neut # (Auto) 15.74 H (1.4-6.5) K/uL Lymph # (Auto) 1.20 (1.2-3.4) K/uL Cannon # (Auto) 0.52 (0.11-0.59) K/uL Eos # (Auto) 0.01 (0-0.5) K/uL Baso # (Auto) 0.04 (0-0.2) K/uL Immature Gran # (Auto) 0.04 H (0.00-0.02) K/uL Sodium 133 L (136-145) mmol/L Potassium 3.9 (3.5-5.1) mmol/L Chloride 101 (98-107) mmol/L Carbon Dioxide 21 (21-32) mmol/L Anion Gap 11.0 (3-11) BUN 12 (7-18) mg/dl Creatinine 1.04 (0.6-1.2) mg/dl Est Cr Clr Drug Dosing Not Reportable Est GFR ( Amer) 72.0 ml/min Est GFR (Non-Af Amer) 62.2 ml/min BUN/Creatinine Ratio 11.9 (10-20) Glucose 226 H (70-99) mg/dl Calcium 10.1 (8.5-10.1) mg/dl Total Bilirubin 1.1 H (0.2-1) mg/dl AST 22 (15-37) U/L ALT 31 (12-78) U/L Alkaline Phosphatase 56 (45-117) U/L Troponin I < 0.015 (0-0.045) ng/ml Total Protein 9.0 H (6.4-8.2) gm/dl Albumin 4.3 (3.4-5.0) gm/dl Globulin 4.7 H (2.5-4.0) gm/dl Albumin/Globulin Ratio 0.9 (0.9-2) Lipase 109 (73-393) U/L Administered Medications Labetalol HCl (Labetalol Hcl Iv 5 Mg/Ml 20ml) 10 mg IV Q10M PRN PRN Reason: Hypertension Stop: 08/11/21 14:49 Last Admin: 07/12/21 16:29 Dose: 10 mg Documented by: [id number] Cosigned by: [id number] Admin: 07/12/21 15:59 Dose: 10 mg Documented by: [id number] Cosigned by: [id number] Discontinued Medications Diphenhydramine HCl (Diphenhydramine 50 Mg/Ml Vial) 25 mg IV NOW STA Stop: 07/12/21 16:13 Last Admin: 07/12/21 16:22 Dose: 25 mg Documented by: [id number] Fentanyl Citrate (Fentanyl Citrate 100 Mcg/2 Ml Vial) 50 mcg IV NOW STA Stop: 07/12/21 13:06 Last Admin: 07/12/21 14:14 Dose: 50 mcg Documented by: [id number] Fentanyl Citrate (Fentanyl Citrate 100 Mcg/2 Ml Vial) 75 mcg IV NOW STA Stop: 07/12/21 14:32 Last Admin: 07/12/21 14:55 Dose: 75 mcg Documented by: [id number] Sodium Chloride (Nss 1000ml) 1,000 mls @ 999 mls/hr IV .Q1H1M ONE Stop: 07/12/21 14:05 Last Admin: 07/12/21 14:14 Dose: 999 mls/hr Documented by: [id number] Prochlorperazine (Compazine) 2 mls @ 1 mls/min IV ONE ONE Stop: 07/12/21 16:13 Last Admin: 07/12/21 16:23 Dose: 1 mls/min Documented by: [id number] Ioversol (Optiray 320 100ml) 95 ml IV ONCE ONE Stop: 07/12/21 15:08 Last Admin: 07/12/21 15:08 Dose: 95 ml Documented by: [id number] Nicotine (Nicotine 21 Mg/24 Hr Tdsy) 21 mg TD NOW STA Stop: 07/12/21 15:22 Last Admin: 07/12/21 15:59 Dose: 21 mg Documented by: [id number] Ondansetron HCl (Ondansetron Inj 2 Mg/Ml 2 Ml Vial) 4 mg IV NOW STA Stop: 07/12/21 13:06 Last Admin: 07/12/21 14:14 Dose: 4 mg Documented by: [id number] Imaging Data Radiologist's Impression: Abdomen/Pelvis CT 07/12/21 13:05 CT abd pelvis IV con only CLINICAL HISTORY: lower ab pain; vomiting COMPARISON STUDY: 05/17/2021 CT DOSE: 3331.99 mGy.cm TECHNIQUE: Standard CT of the Abdomen and Pelvis was performed with IV contrast. A dose lowering technique was utilized adhering to the principles of ALARA. Contrast Volume: Optiray 320, 95 ml. The patient did not receive oral contrast. FINDINGS: There is motion artifact present. Lung base: The lung bases are clear. Abdominal cavity: There is no evidence for abdominal mass, adenopathy or ascites. Liver: There is homogeneous attenuation of the liver parenchyma. There is no evidence for enhancing mass lesion. Spleen: There is homogeneous attenuation of the splenic parenchyma. There is no enhancing mass lesion. Pancreas: There is homogeneous attenuation of the pancreatic parenchyma. There is no evidence for mass lesion or peripancreatic fluid collection. Gall Bladder: The gallbladder is well distended with no evidence for intra luminal calculi, wall thickening or pericholecystic edema. Adrenal glands: The adrenal glands are normal in size and attenuation. There is no evidence for enhancing mass lesion. Kidneys: There is homogeneous attenuation of the renal parenchyma bilaterally. There is no evidence for renal calculus or hydronephrosis. There is no evidence for enhancing mass. Bowel: There is a small hiatal hernia. The stomach is grossly distended with liquid and food stuff. The bowel loops are normally placed within the abdomen and pelvis without evidence for dilatation or obstruction. There is no evidence for mass lesion. There are no inflammatory changes present. There is no evidence for free air. There is no evidence for dilated appendix. Bladder: The bladder is within normal limits with no evidence for focal mass, calculus or diverticulum. : There is no evidence for pelvic mass or adenopathy. There is no evidence for pelvic ascites. Vasculature: There is no evidence for aneurysmal dilatation of the abdominal aorta. Osseous structures: There is no acute osseous pathology. Degenerative changes are again seen involving the right hip. IMPRESSION: 1. No acute intra-abdominal or pelvic abnormality. 2. Nonacute findings as delineated above. ACT 112: Negative or not required by law. Electronically signed by: Channing Temple M.D. 07/12/2021 3:[address] 07/12/21 14:53 CT SCAN OF THE BRAIN WITHOUT IV CONTRAST CLINICAL HISTORY: Hypertension. Vomiting COMPARISON STUDY: CT of the brain dated 09/23/2019. TECHNIQUE: Unenhanced axial CT scan of the brain is performed from the vertex to the skull base. A dose lowering technique was utilized adhering to the principles of ALARA. The patient was scanned twice due to motion artifact. FINDINGS: Brain parenchyma: The brain parenchyma is normal in appearance. There is no hemorrhage, mass effect, or evidence of acute territorial ischemia by CT criteria. Saldivar-white matter differentiation is preserved. No extra-axial fluid collection is seen. Ventricles, sulci, cisterns: Normal in configuration. Intracranial vasculature: There is mild atherosclerotic calcification of the cavernous carotid arteries. Calvarium: Unremarkable. Sinuses and mastoids: There is moderate mucosal thickening within the maxillary antra. Trace mucosal thickening is noted in the ethmoid sinuses. The remaining paranasal sinuses are clear. The mastoid air cells are well pneumatized. Cerumen is noted within the external auditory canals. Orbits: The bony orbits are grossly intact. IMPRESSION: 1. No acute intracranial abnormality. 2. Maxillary sinus disease as above. ACT 112: Negative or not required by law. Electronically signed by: Felipe Spangler M.D. 07/12/2021 3:21 PM Discharge Plan Visit Data Chief Complaint: Abdominal Pain ED Provider: Tray Guaman Discharge Problem: Hypertensive emergency, Nausea & vomiting Patient Disposition: Admitted As Inpatient Forms Stand Alone Forms: [facility] Prescriptions Prescriptions: No Action quetiapine 25 mg tablet 50 mg PO HS RF: 0 sucralfate 100 mg/mL suspension 5 ml PO QID RF: 0 clonazepam 0.5 mg tablet 0.25 mg PO BID RF: 0 propranolol [Inderal LA] 60 mg capsule,extended release 24 hr 60 mg PO DAILY Qty: 30 RF: 1 [id number]-oqpbgaqqfgjna-jpgp [Fioricet] 50-300-40 mg capsule 1 cap PO Q6H PRN (Reason: headache pain) Qty: 10 RF: 0 pantoprazole 40 mg tablet,delayed release (DR/EC) 40 mg PO BID Qty: 0 RF: 0 albuterol sulfate 90 mcg/actuation HFA aerosol inhaler 2 puff INHALATION QID PRN (Reason: Shortness Of Breath Or Wheezing or Cough) Qty: 8.5 RF: 0 fluticasone propionate 50 mcg/actuation spray,suspension 2 spray INTRANASAL DAILY RF: 0 lisinopril 20 mg tablet 20 mg PO DAILY RF: 0 ipratropium-albuterol 0.5 mg-3 mg(2.5 mg base)/3 mL solution for nebulization 3 ml INHALATION Q6H PRN (Reason: Shortness Of Breath Or Wheezing) RF: 0 Referrals Referrals: PCP,NO [Primary Care Provider] -
[2021-07-12 13:02] LABS: Alanine Aminotransferase 31 U/L (12-78); Albumin Level 4.3 gm/dl (3.4-5.0); Aspartate Aminotransferase 22 U/L (15-37); BUN Creatinine Ratio 11.9 (10-20); Blood Urea Nitrogen 12 mg/dl (7-18); Calcium 10.1 mg/dl (8.5-10.1); Carbon Dioxide 21 mmol/L (21-32); Chloride 101 mmol/L (98-107); Est GFR (Non-African American) 62.2 ml/min; Glucose 226 mg/dl (70-99); Lipase 109 U/L (73-393); Potassium 3.9 mmol/L (3.5-5.1); Sodium 133 mmol/L (136-145)
[2021-07-12 13:05] LABS: Albumin Globulin Ratio 0.9 (0.9-2); Alkaline Phosphatase 56 U/L (45-117); Bilirubin,Total 1.1 mg/dl (0.2-1); Globulin 4.7 gm/dl (2.5-4.0)
[2021-07-12] MEDS ORDERED: ONDANSETRON INJ 2 MG/ML 2 ML VIAL IV STA (13:05)
[2021-07-12] MEDS ORDERED: SODIUM CHLORIDE 0.9% 1000ML 1,000 ML IV ONE (13:05)
[2021-07-12] MEDS ORDERED: fentaNYL citrate 100 MCG/2 ML VIAL IV STA ×2 (13:05→14:31)
[2021-07-12 14:24] LABS: Troponin I < 0.015 ng/ml (0-0.045)
[2021-07-12] MEDS ORDERED: OPTIRAY 320 100ml IV ONE (15:07)
[2021-07-12] MEDS ORDERED: NICOTINE 21 MG/24 HR TDSY TD STA (15:21)
--- NOTE | 2021-07-12 15:23 | CT Scan Report ---
CT SCAN OF THE BRAIN WITHOUT IV CONTRAST CLINICAL HISTORY: Hypertension. Vomiting COMPARISON STUDY: CT of the brain dated 09/23/2019. TECHNIQUE: Unenhanced axial CT scan of the brain is performed from the vertex to the skull base. A d ose lowering technique was utilized adhering to the principles of ALARA. The patient was scanned twic e due to motion artifact. FINDINGS: Brain parenchyma: The brain parenchyma is normal in appearance. There is no hemorrhage, mass effect, or evidence of acute territorial ischemia by CT criteria. Saldivar-white matter differentiation is preser cholo. No extra-axial fluid collection is seen. Ventricles, sulci, cisterns: Normal in configuration. Intracranial vasculature: There is mild atherosclerotic calcification of the cavernous carotid arteri es. Calvarium: Unremarkable. Sinuses and mastoids: There is moderate mucosal thickening within the maxillary antra. Trace mucosal thickening is noted in the ethmoid sinuses. The remaining paranasal sinuses are clear. The mastoid ai r cells are well pneumatized. Cerumen is noted within the external auditory canals. Orbits: The bony orbits are grossly intact. IMPRESSION: 1. No acute intracranial abnormality. 2. Maxillary sinus disease as above. ACT 112: Negative or not required by law. Electronically signed by: Felipe Spangler M.D. 07/12/2021 3:21 PM
--- NOTE | 2021-07-12 15:35 | CT Scan Report ---
CT abd pelvis IV con only CLINICAL HISTORY: lower ab pain; vomiting COMPARISON STUDY: 05/17/2021 CT DOSE: 3331.99 mGy.cm TECHNIQUE: Standard CT of the Abdomen and Pelvis was performed with IV contrast. A dose lowering rachael hnique was utilized adhering to the principles of ALARA. Contrast Volume: Optiray 320, 95 ml. The patient did not receive oral contrast. FINDINGS: There is motion artifact present. Lung base: The lung bases are clear. Abdominal cavity: There is no evidence for abdominal mass, adenopathy or ascites. Liver: There is homogeneous attenuation of the liver parenchyma. There is no evidence for enhancing m ass lesion. Spleen: There is homogeneous attenuation of the splenic parenchyma. There is no enhancing mass lesion . Pancreas: There is homogeneous attenuation of the pancreatic parenchyma. There is no evidence for mas s lesion or peripancreatic fluid collection. Gall Bladder: The gallbladder is well distended with no evidence for intraluminal calculi, wall thick ening or pericholecystic edema. Adrenal glands: The adrenal glands are normal in size and attenuation. There is no evidence for enhan cing mass lesion. Kidneys: There is homogeneous attenuation of the renal parenchyma bilaterally. There is no evidence f or renal calculus or hydronephrosis. There is no evidence for enhancing mass. Bowel: There is a small hiatal hernia. The stomach is grossly distended with liquid and food stuff. T he bowel loops are normally placed within the abdomen and pelvis without evidence for dilatation or o bstruction. There is no evidence for mass lesion. There are no inflammatory changes present. There is no evidence for free air. There is no evidence for dilated appendix. Bladder: The bladder is within normal limits with no evidence for focal mass, calculus or diverticulu m. : There is no evidence for pelvic mass or adenopathy. There is no evidence for pelvic ascites. Vasculature: There is no evidence for aneurysmal dilatation of the abdominal aorta. Osseous structures: There is no acute osseous pathology. Degenerative changes are again seen involvin g the right hip. IMPRESSION: 1. No acute intra-abdominal or pelvic abnormality. 2. Nonacute findings as delineated above. ACT 112: Negative or not required by law. Electronically signed by: Channing Temple M.D. 07/12/2021 3:33 PM
[2021-07-12] MEDS: LABETALOL HCL IV 5 MG/ML 20ML IV PRN ×3 (15:59→20:24)
[2021-07-12] MEDS ORDERED: diphenhydrAMINE 50 MG/ML VIAL IV STA (16:12)
[2021-07-12] MEDS ORDERED: PROCHLORPERAZINE 2 ML IV ONE (16:12)
--- NOTE | 2021-07-12 17:02 | History & Physical Report ---
Date of Service July 12, 2021 Assessment & Plan (1) Abdominal pain: Plan: Patient's initial presentation was lower abdominal pain. However pathology or stool burden is not seen on CT scan. CT scan does corroborate distended stomach she does have a history of duodenitis gastritis and she did vomit with concern for some blood products therefore consideration for gastritis or even peptic ulcer disease will be undertaken. Previous admission [facility] GI was co nsulted stat urine porphyrins with only minimal elevation will repeat in case this was night in concert with her acute course. Abdominal pain however may be more associated with her history of chronic cannabis use and also history of gastritis. Urine tox screen will be sent (2) Gastritis: Plan: Patient be placed on twice daily PPI she will be given a clear liquid diet we will trend her hemoglobin and her symptoms (3) Hypertension: Plan: He was markedly hypertensive in the ER not clear whether this was from her pain or perhaps volume resuscitation typically takes lisinopril and propranolol these will be continued propranolol could be increased if need be (4) Marijuana smoker: Plan: Patient has a history of cyclic vomiting disorder with in her past medical history certainly unclear if symptoms could be related to the same (5) Hx of Crohn's disease: (6) Hepatitis C: (7) Current smoker: Plan: Patient be offered nicotine patch History of Present Illness Primary Care Provider: NO PCP 51 F presents to ER with abdominal pain began around 6 AM this morning. The patient describes it as sharp and achy and located in the lower abdomen. The patient denies any recent falls or trauma. Patient did have vomiting, perhaps having some vomiting of blood. Patient denies any blood thinners. Patient denies any prior history of EGD. Patient does have a history of Crohn's. Patient did try to take some pain medication today but this did not seem to team to improve her symptoms. The patient denies any alcohol tobacco or drug use. Patient has any fevers or chills. Patient is vaccinated for Covid. Patient states that the same that his symptoms have been constant. No remitting or exacerbating factors. The patient denies any recent falls trauma or being struck in the abdomen. Patient denies any dysuria or hematuria. CT scan of the ER 07/12/2021 shows no acute intra-abdominal or pelvic abnormality, there is no significant stool burden. In the ER her blood pressure became significantly elevated and she was given doses of intravenous labetalol to improve her blood pressure. When queried in the ER about her marijuana use she became extremely defensive and yelled at me, with a very similar admission in 06/02, coprophophoryns were sent but were not significantly elevated above normal limits felt not to be clinically significant will resend at this time Allergies Allergy/AdvReac Type Severity Reaction Status Date / Time codeine AdvReac Mild GI SYMPTOMS Verified 07/12/21 16:55 hydromorphone [From Dilaudid] AdvReac Mild Nausea Verified 07/12/21 16:55 morphine AdvReac Mild N/V Verified 07/12/21 16:55 tramadol AdvReac Mild GI SYMPTOMS Verified 07/12/21 16:55 Home Medications Medication Instructions Recorded Confirmed Type clonazepam 0.5 mg tablet 0.25 mg PO BID 05/16/21 07/12/21 History quetiapine 25 mg tablet 50 mg PO HS 05/16/21 07/12/21 History sucralfate 100 mg/mL oral 5 ml PO QID 05/16/21 07/12/21 History suspension albuterol sulfate 90 mcg/actuation 2 puff INHALATION QID PRN #8.5 g 05/20/21 07/12/21 Rx aerosol inhaler [id number]-fcljvlibmkopu-ovsuiynm 1 cap PO Q6H PRN #10 cap 05/20/21 07/12/21 Rx 50 mg-300 mg-40 mg capsule (Fioricet) pantoprazole 40 mg tablet,delayed 40 mg PO BID #0 tab 05/20/21 07/12/21 Rx release propranolol 60 mg capsule,24 60 mg PO DAILY #30 cap 05/20/21 07/12/21 Rx hr,extended release (Inderal LA) fluticasone propionate 50 2 spray INTRANASAL DAILY 07/12/21 07/12/21 History mcg/actuation nasal spray,suspension ipratropium 0.5 mg-albuterol 3 mg 3 ml INHALATION Q6H PRN 07/12/21 07/12/21 History (2.5 mg base)/3 mL nebulization soln lisinopril 20 mg tablet 20 mg PO DAILY 07/12/21 07/12/21 History Past Med/Surg History Medical History (Updated 07/12/21 @ 17:36 by Tray Guaman MD) Anxiety Gastritis Hepatitis C Hx of Crohn's disease Hyperglycemia Hypertension Hypertensive emergency Hypokalemia Leukocytosis Migraine Nausea & vomiting UTI (urinary tract infection) Vomiting Surgical History History of appendectomy History of delivery History of orthopedic surgery Family History Other Hypertension Social History Smoking Status: Current every day smoker Tobacco Type: Cigarettes Cigarettes Per Day: 1 ppd; Second Hand Exposure: No; Hx Alcohol Use: No Hx Substance Use: Yes Last Used Substance: Days (ago) Last Used Substance Other:: month ago Substance Use Type Other:: aprazolam Preferred Language: Divehi Communication Ability: Effective Manager Respiratory Care Required: No Beliefs That Will Affect Care: None marital status: Current Living Situation: Family Current Living Situation Comment: daughter lives with patient current occupational status: unemployed How many Children do You have: 2 Feels Safe at Home: Yes Assistive Devices: None Review of Systems Review of Systems: Mild distress and fatigue no headache, no visual changes no speech or swallowing issues no chest pain, pressure or palpitations no shortness of breath, cough or wheezes Lower abdominal cramping pain, with nausea or vomiting no dysuria, hematuria or frequency no focal joint pain or swelling no back pain, CVA tenderness or radicular pain no bruising, bleeding or rashes no focal signs of weakness or numbness or altered sensation no complaints of anxiety or depression.. Physical Exam Physical Exam: The patient appeared well nourished and normally developed. Vital signs as documented. Head exam is normocephalic atraumatic Neck is without JVD, thyromegaly, or carotid bruits. Lungs are clear to auscultation, no focal loss of breath sounds Cardiac exam, Rhythm is regular.. No murmurs, rubs or gallops. Abdominal exam reveals normal bowel sounds, soft non tender, no masses Extremities are nonedematous and both pedal pulses are present Neurologic exam is alert and oriented, no focal loss of strength or sensation Skin is without bruises or rashes Psychologically is without concerns for anxiety or depression.. Results & Data Results & Data ([facility]) Vital Signs (Past 12 Hours) Vital Signs Temp Pulse Pulse Resp BP BP Pulse Ox 07/12/21 16:45 92 H 18 144/104 H 98 07/12/21 15:55 98 H 16 252/157 H 95 07/12/21 15:00 92 H 18 245/138 H 97 07/12/21 12:21 98.6 F 92 H 24 220/[address] scan of abdomen pelvis and head are unremarkable for pathology PG Care Time/CCT Total # of Minutes Spent Total Time Spent with Patient: Total time spent is greater than 50% in coordination of care (as documented) at patient's floor/unit and/or counseling patient: Coding Level of Care Code 96445 Initial Inpt Care Lvl 3 Diagnoses Current smoker F17.200 Hepatitis C B19.20 Hypertension I10 Hypertension type: unspecified Marijuana smoker F12.90 Hx of Crohn's disease Z87.19 Gastritis K29.70 Abdominal pain R10.9 (1) Hypertension Hypertension type: unspecified Qualified Code(s): I10 - Essential (primary) hypertension
[2021-07-12 20:07] LABS: Appearance Urine Clear (Clear); Bacteria Urine Automated Negative (Negative); Bilirubin Urine Negative (Negative); Blood Urine 1+ (Negative); Color Urine Yellow; Epithelial Cell Urine Auto 20-30 /lpf (0-5); Glucose Urine UA Trace (Negative); Ketones Urine Negative (Negative); Leukocyte Esterase Urine Negative (Negative); Nitrite Urine Negative (Negative); RBC Urine Automated 0-4 /hpf (0-4); Urobilinogen Urine Negative (Negative); pH Urine >= 9.0 (4.5-7.5)
[2021-07-12 20:19] LABS: Protein Urine 3+ (Negative)
[2021-07-12] MEDS ORDERED: METOPROLOL TARTRATE 1 MG/ML VIAL IV STA (20:53)
[2021-07-12] MEDS ORDERED: LORazepam 0.5 MG/1 ML VIAL IV STA (22:28)
[2021-07-12] MEDS ORDERED: dilTIAZem HCl 5 MG/ML 5 ML VIAL IV STA (23:22)
[2021-07-13 01:11] LABS: Amphetamines+Metham, Urine Neg (Neg); Barbiturates, Urine Neg (Neg); Benzodiazepine, Urine Neg (Neg); Cocaine, Urine Neg (Neg); MDMA (Ecstacy), Urine Neg (Neg); Methadone, Urine Neg (Neg); Opiate, Urine Neg (Neg); Phencyclidine, Urine Neg (Neg)
[2021-07-13] MEDS ORDERED: ONDANSETRON INJ 2 MG/ML 2 ML VIAL IV PRN (03:21)
[2021-07-13] MEDS ORDERED: ALBUTEROL HFA 8 GM INHALER INH PRN (03:21)
[2021-07-13] MEDS ORDERED: PROMETHAZINE HCL 12.5 MG in SODIUM CHLORIDE 0.9% 50 ML IV PRN (03:21)
[2021-07-13] MEDS ORDERED: ALBUT/IPRATROP 3MG/0.5MG NEB 3 ML VIAL INH PRN (03:21)
[2021-07-13] MEDS ORDERED: LORazepam 0.5 MG/1 ML VIAL IV PRN (03:21)
[2021-07-13] MEDS ORDERED: hydrALAZINE HCL 20 MG/ML VIAL IV PRN (03:21)
[2021-07-13] MEDS ORDERED: BUTALBITAL/ASPIRIN/CAFFEINE 1 TAB TAB PO PRN (03:25)
[2021-07-13] MEDS: LACTATED RINGER'S 1,000 ML IV SCH ×3 (03:38→23:30)
[2021-07-13] MEDS: HYDROmorphone INJ 0.5 MG/0.5 ML SYR IV PRN ×4 (03:40→20:44)
[2021-07-13] MEDS: LABETALOL HCL IV 5 MG/ML 20ML IV PRN (04:33)
[2021-07-13] MEDS: PANTOprazole 40 MG in SYRINGE 0 ML IV SCH ×3 (04:45→21:23)
[2021-07-13] MEDS: clonazePAM 0.25 MG TAB PO SCH ×2 (05:54→20:47)
[2021-07-13] MEDS: QUEtiapine FUMARATE 25 MG TABLET PO SCH ×2 (05:54→21:23)
[2021-07-13] MEDS: SUCRALFATE 1 GM/10 ML UDC PO SCH ×2 (08:28→12:33)
[2021-07-13] MEDS: lisinopril 20 MG TAB PO SCH (08:28)
[2021-07-13] MEDS: PROPRANOLOL HCL 60 MG LA CAP PO SCH (08:28)
[2021-07-13] MEDS: FLUTICASONE PROPIONATE NA SPR 16 GM BTL SCH (08:28)
[2021-07-13 08:36] LABS: Hematocrit (blood only) 49.1 % (37-47); Hemoglobin 17.2 g/dL (12.0-16.0); Mean Corpuscular Hemoglobin 29.5 pg (25-34); Mean Corpuscular Volume 84.2 fL (80-100); Mean Platelet Volume 10.5 fL (7.4-10.4); Platelet Count 322 K/uL (130-400); RDW Coefficient of Variation 14.5 % (11.5-14.5); RDW Standard Deviation 44.5 fL (36.4-46.3); Red Blood Count 5.83 M/uL (4.2-5.4); White Blood Count 16.79 K/uL (4.8-10.8)
[2021-07-13 08:53] LABS: BUN Creatinine Ratio 15.2 (10-20); Calcium 9.2 mg/dl (8.5-10.1); Creatinine Clr Calc Pharmacy 60.6 ml/min; Est GFR (African American) 59.4 ml/min; Est GFR (Non-African American) 51.3 ml/min; Potassium 3.5 mmol/L (3.5-5.1)
[2021-07-13 09:44] LABS: Amphetamines+Metham, Urine Neg (Neg); Barbiturates, Urine Neg (Neg); Benzodiazepine, Urine Neg (Neg); Cocaine, Urine Neg (Neg); MDMA (Ecstacy), Urine Neg (Neg); Methadone, Urine Neg (Neg); Opiate, Urine Pos (Neg); Phencyclidine, Urine Neg (Neg)
--- NOTE | 2021-07-13 16:00 | Gastrointestinal Consultation ---
Date of Consultation July 13, 2021 Assessment & Plan (1) Nausea & vomiting: Repeat TSH and check cortisol to rule out endocrine etiology of pain/n/v. PBG and porphyrin repeat studies pending. Plan EGD tomorrow to see if PUD contributing as she had an MRCP in the past showing duodenitis. History of Present Illness Reason for Consultation: abdominal pain Requesting Physician: DR Anderson Attending Physician: Brandt Anderson MD History of Present Illness Pt with recurrent n/v over the last 3 years. She has history of hep C treated with interferon and Ribavirin. Pt states she has been at [facility] with no etiology determined. Daily amitryptiline was tried without apparent improvemtn. Pt most recently hospitalized 05/2021 and had elevated porphyrins but PBG normal. Also during that admit RSV was positive. . She states marijuana was started after the problem started. Most recent EGD 09/25/2019 small HH. MRCP 10/2020 duodenitis. Noted thyroid studies 07/2020 ok but do not see a cortisol level. CT a/p this admit small HH, stomach distended with food and liquid. She complains of n/v and also abd pain . Head CT this admit maxillary sinus disease. CBC WBC 16.8, CMP TP 9, TB 1.1 but other LFTS normal. Allergies Allergy/AdvReac Type Severity Reaction Status Date / Time codeine AdvReac Mild GI SYMPTOMS Verified 07/12/21 16:55 hydromorphone [From Dilaudid] AdvReac Mild Nausea Verified 07/12/21 16:55 morphine AdvReac Mild N/V Verified 07/12/21 16:55 tramadol AdvReac Mild GI SYMPTOMS Verified 07/12/21 16:55 Home Medications Medication Instructions Recorded Confirmed Type clonazepam 0.5 mg tablet 0.25 mg PO BID 05/16/21 07/12/21 History quetiapine 25 mg tablet 50 mg PO HS 05/16/21 07/12/21 History sucralfate 100 mg/mL oral 5 ml PO QID 05/16/21 07/12/21 History suspension albuterol sulfate 90 mcg/actuation 2 puff INHALATION QID PRN #8.5 g 05/20/21 07/12/21 Rx aerosol inhaler tvcxmakmho-wchvlelzqfacr-pzxzaixx 1 cap PO Q6H PRN #10 cap 05/20/21 07/12/21 Rx 50 mg-300 mg-40 mg capsule (Fioricet) pantoprazole 40 mg tablet,delayed 40 mg PO BID #0 tab 05/20/21 07/12/21 Rx release propranolol 60 mg capsule,24 60 mg PO DAILY #30 cap 05/20/21 07/12/21 Rx hr,extended release (Inderal LA) fluticasone propionate 50 2 spray INTRANASAL DAILY 07/12/21 07/12/21 History mcg/actuation nasal spray,suspension ipratropium 0.5 mg-albuterol 3 mg 3 ml INHALATION Q6H PRN 07/12/21 07/12/21 History (2.5 mg base)/3 mL nebulization soln lisinopril 20 mg tablet 20 mg PO DAILY 07/12/21 07/12/21 History Patient History Medical History Anxiety Gastritis Hepatitis C Hx of Crohn's disease Hyperglycemia Hypertension Hypertensive emergency Hypokalemia Leukocytosis Migraine Nausea & vomiting UTI (urinary tract infection) Vomiting Surgical History History of appendectomy History of delivery History of orthopedic surgery Family History Other Hypertension Social History Smoking Status: Current every day smoker Tobacco Type: Cigarettes Cigarettes Per Day: 20; Second Hand Exposure: No; Hx Alcohol Use: No Hx Substance Use: Yes Last Used Substance: Days (ago) Last Used Substance Other:: a couple weeks Substance Use Type Other:: aprazolam Preferred Language: Greek Communication Ability: Effective 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 Beliefs That Will Affect Care: None marital status: Current Living Situation: Significant Other Current Living Situation Comment: daughter lives with patient current occupational status: unemployed How many Children do You have: 2 Other Information That Helps Us Care for You: No Feels Safe at Home: Yes Safety Concerns: Feels Safe At This Time Assistive Devices: None Review of Systems Review of Systems: All systems reviewed & are unremarkable except as noted in HPI & below Physical Exam Constitutional: WD/WN, vitals as above Neck: normal visual inspection and trachea midline Respiratory: normal respiratory effort, lungs clear to auscultation Cardiovascular: RRR, no murmur, no edema Gastrointestinal (Abdomen): positive bowel sounds, mild epi guarding but no rebound, Skin: normal turgor Neurologic: PERRL, EOMI, accommodation nl, no face palsy, no dysarthria Psychiatric: A+Ox3, euthymic affect Results & Data ([facility]) Vital Signs (Past 12 Hours) Vital Signs Temp Pulse Pulse Resp BP BP Pulse Ox 07/13/21 15:08 36.8 C 67 18 112/76 95 07/13/21 11:05 37.0 C 86 18 100/67 92 07/13/21 08:30 93 H 07/13/21 07:30 36.9 C 110 H 16 112/76 95 07/13/21 04:50 152/109 H 07/13/21 04:23 188/122 H (1) Nausea & vomiting Vomiting Intractability: non-intractable Vomiting type: unspecified Qualified Code(s): R11.2 - Nausea with vomiting, unspecified
[2021-07-13] MEDS ORDERED: HYDROmorphone INJ 1 MG/ML SYRINGE IV STA (16:03)
--- NOTE | 2021-07-13 19:34 | Hospitalist Progress Note ---
Date of Service July 13, 2021 Assessment & Plan (1) Abdominal pain: Plan: Patient's initial presentation was lower abdominal pain. However pathology or stool burden is not seen on CT scan. CT scan does corroborate distended stomach she does have a history of duodenitis gastritis patient seen by GI medicine plan for upper endoscopy previous admission [facility] GI was consulted stat urine porphyrins with only minimal elevation will repeat in case this was not in concert with her acute episode. Abdominal pain however may be more associated with her history of chronic cannabis use and also history of gastritis. Urine tox screen confirms cannabis present (2) Gastritis: Plan: Patient be placed on twice daily PPI she will be given a clear liquid diet we will trend her hemoglobin and her symptoms (3) Hypertension: Plan: He was markedly hypertensive in the ER not clear whether this was from her pain or perhaps volume resuscitation typically takes lisinopril and propranolol these will be continued propranolol resolution of hypertension brings question if in concert with outpatient surreptitious substance abuse as now resolved (4) Marijuana smoker: Plan: Patient has a history of cyclic vomiting disorder with in her past medical history certainly unclear if symptoms could be related to the same (5) Hx of Crohn's disease: (6) Hepatitis C: (7) Current smoker: Plan: Patient be offered nicotine patch patient is polycythemic likely related to smoking use, however with persistence in medical record send EPO and Jak2 for eval for polycythemia vera Admission and Anticipated Discharge Date Admission Date: July 12, 2021 Subjective pt with persistent abdominal lower quadrant pain, still with some post prandial pain and only tolerating clear liquids pain seems out of proportion to exam Review of Systems Review of Systems: moderate distress and fatigue no headache, no visual changes no speech or swallowing issues no chest pain, pressure or palpitations no shortness of breath, cough or wheezes lower quadrant abdominal pain, persistent nausea but no vomiting, no bowel production no dysuria, hematuria or frequency no focal joint pain or swelling no back pain, CVA tenderness or radicular pain no bruising, bleeding or rashes no focal signs of weakness or numbness or altered sensation no complaints of anxiety or depression.. Physical Exam Physical Exam: The patient appeared to [place] Vital signs as documented. Head exam is normocephalic atraumatic Neck is without JVD, thyromegaly, or carotid bruits. Lungs are clear to auscultation, no focal loss of breath sounds Cardiac exam, Rhythm is regular.. No murmurs, rubs or gallops. Abdominal exam reveals normal bowel sounds, complains of tenderness to lower quadrants no longer tender epigastrium as she was on admission no rebound no guarding no organomegaly at this time Extremities are nonedematous and both pedal pulses are present Neurologic exam is alert and oriented, no focal loss of strength or sensation Skin is without bruises or rashes Psychologically is without concerns for anxiety or depression.. Results & Data Results & Data ([facility]) Vital Signs (Past 12 Hours) Vital Signs Temp Pulse Pulse Resp BP Pulse Ox 07/13/21 15:56 67 07/13/21 15:08 98.2 F 67 18 112/76 95 07/13/21 11:05 98.6 F 86 18 100/67 92 07/13/21 08:30 93 H 07/13/21 07:30 98.4 F 110 H 16 112/76 95 PG Care Time/CCT Total # of Minutes Spent Total Time Spent with Patient: Total time spent is greater than 50% in coordination of care (as documented) at patient's floor/unit and/or counseling patient: Coding Level of Care Code 18412 Subseq Hosp Care Lvl 2 Diagnoses Abdominal pain R10.9 Gastritis K29.70 Hypertension I10 Hypertension type: unspecified Marijuana smoker F12.90 Hx of Crohn's disease Z87.19 Hepatitis C B19.20 Current smoker F17.200 (1) Hypertension Hypertension type: unspecified Qualified Code(s): I10 - Essential (primary) hypertension
[2021-07-14] MEDS: HYDROmorphone INJ 0.5 MG/0.5 ML SYR IV PRN ×4 (05:37→20:07)
[2021-07-14] MEDS: LACTATED RINGER'S 1,000 ML IV SCH ×3 (07:33→23:14)
[2021-07-14 07:38] LABS: Hematocrit (blood only) 42.6 % (37-47); Hemoglobin 14.3 g/dL (12.0-16.0); Mean Corpuscular Hemoglobin 29.1 pg (25-34); Mean Corpuscular Hgb Conc 33.6 g/dL (32-36); Mean Corpuscular Volume 86.6 fL (80-100); Mean Platelet Volume 10.5 fL (7.4-10.4); Platelet Count 244 K/uL (130-400); RDW Coefficient of Variation 14.8 % (11.5-14.5); RDW Standard Deviation 46.9 fL (36.4-46.3); Red Blood Count 4.92 M/uL (4.2-5.4); White Blood Count 9.51 K/uL (4.8-10.8)
[2021-07-14] MEDS: lisinopril 20 MG TAB PO SCH (08:14)
[2021-07-14] MEDS: PROPRANOLOL HCL 60 MG LA CAP PO SCH (08:14)
[2021-07-14] MEDS: clonazePAM 0.25 MG TAB PO SCH ×2 (08:14→20:43)
[2021-07-14] MEDS: FLUTICASONE PROPIONATE NA SPR 16 GM BTL SCH (08:14)
[2021-07-14] MEDS: PANTOprazole 40 MG in SYRINGE 0 ML IV SCH (08:15)
--- NOTE | 2021-07-14 08:21 | Gastroenterology Progress Note ---
Date of Service July 14, 2021 Assessment & Plan (1) Abdominal pain: Plan: The patient has had recurrent nausea and vomiting with abdominal pain over the last 3 years. Plan today is for EGD. Maintain n.p.o. and hold Carafate until after procedure. Pain medication per hospitalist team. Continue supportive measures. PBG and porphyrin studies are pending. TSH within normal limits. A.m. cortisol is pending. Please refer to supervising physician addendum for further recommendations. Admission and Anticipated Discharge Date Admission Date: July 12, 2021 Supervising Physician Co-Signing Physician Notes I have seen and examined the patient. I agree with note above by JIMMIE Lambert except as noted below. HPI Pt states abd pain about the same. PE Abdomen pos bs, soft, no guarding nor rebound A/P n/v abd pain EGD today. Procedure and risks explained to patient which include but not limited to medication reaction, bleeding, perforation, aspiration, and missed lesions. Subjective The patient is awake alert and oriented this morning. She is lying in bed and position of comfort. She reports that her abdominal pain is about a 6 out of 10. It is mid to upper in nature. Denies any heartburn or reflux. Denies nausea or vomiting. Reports very small bowel movement last night. Denies melena or hematochezia. She is asking for more pain medication. Nursing reports she is next due for pain meds in about 45 minutes. Review of Systems Review of Systems: All systems reviewed & are unremarkable except as noted in HPI & below Physical Exam Constitutional: WD/WN, vitals as above Neck: normal visual inspection and trachea midline Respiratory: normal respiratory effort, lungs clear to auscultation Cardiovascular: RRR, no murmur, no edema Gastrointestinal (Abdomen): positive bowel sounds, mild epi guarding but no rebound, Skin: normal turgor Neurologic: PERRL, EOMI, accommodation nl, no face palsy, no dysarthria Psychiatric: A+Ox3, euthymic affect Results & Data ([facility]) Vital Signs (Past 12 Hours) Vital Signs Temp Pulse Pulse Resp BP BP Pulse Ox 07/14/21 07:30 36.4 C L 59 L 18 105/69 94 07/14/21 02:59 36.9 C 60 18 115/68 93 07/13/21 23:33 61 07/13/21 22:28 36.8 C 67 18 116/70 93 Laboratory Results Laboratory Results - last 24 hr 07/13/21 07/13/21 07/13/21 08:10 09:07 09:07 WBC RBC Hgb Hct MCV MCH MCHC RDW Std Deviation RDW Coeff of Bo Plt Count MPV Sodium 133 L Potassium 3.5 Chloride 101 Carbon Dioxide 21 Anion Gap 11.0 BUN 19 H D Creatinine 1.22 H Est Cr Clr Drug Dosing 60.6 Est GFR ( Amer) 59.4 Est GFR (Non-Af Amer) 51.3 BUN/Creatinine Ratio 15.2 Glucose 126 H Calcium 9.2 Erythropoietin TSH Cortisol AM Sample Ur [place] Porphobilinogen Pending U Porphobilinogen Intrp Pending Ur Total Porphyrins Pending Random Uroporphyrins I Pending Random Uroporphyrin III Pending U Rdm Heptacarboxylpor Pending U Rndm Hexacarboxylpor Pending U Rdm Pentacarboxylpor Pending U Random Coproporphyr I Pending U Rndm Coproporphyr III Pending Ur Porphyrins Interp Pending Urine Opiates Screen Pos H U Codeine Confrm GC/MS Ur Morphine (GC/MS) Ur Hydrocodone (GC/MS) Ur Norhydrocodone Ur Noroxycodone Urine Oxycodone (GC/MS) U Oxymorphone GC/MS Ur Methadone, Qual Neg Ur Hydromorphone (GC/MS) Urine Barbiturates Neg Ur Phencyclidine (PCP) Neg U Amphetamin/Meth Scrn Neg MDMA (Ecstasy) Screen Neg U Benzodiazepines Scrn Neg Ur Cocaine Metabolite Neg U Marijuana (THC) Screen Pos H U Marijuana THC Carboxy Drug Screen Comment SARS-CoV-2, RNA, NAAT JAK2 V617F Mutation 07/13/21 07/13/21 07/14/21 09:07 Unknown 07:00 WBC RBC Hgb Hct MCV MCH MCHC RDW Std Deviation RDW Coeff of Bo Plt Count MPV Sodium Potassium Chloride Carbon Dioxide Anion Gap BUN Creatinine Est Cr Clr Drug Dosing Est GFR ( Amer) Est GFR (Non-Af Amer) BUN/Creatinine Ratio Glucose Calcium Erythropoietin Pending TSH Cortisol AM Sample Ur [place] Porphobilinogen U Porphobilinogen Intrp Ur Total Porphyrins Random Uroporphyrins I Random Uroporphyrin III U Rdm Heptacarboxylpor U Rndm Hexacarboxylpor U Rdm Pentacarboxylpor U Random Coproporphyr I U Rndm Coproporphyr III Ur Porphyrins Interp Urine Opiates Screen U Codeine Confrm GC/MS Pending Ur Morphine (GC/MS) Pending Ur Hydrocodone (GC/MS) Pending Ur Norhydrocodone Pending Ur Noroxycodone Pending Urine Oxycodone (GC/MS) Pending U Oxymorphone GC/MS Pending Ur Methadone, Qual Ur Hydromorphone (GC/MS) Pending Urine Barbiturates Ur Phencyclidine (PCP) U Amphetamin/Meth Scrn MDMA (Ecstasy) Screen U Benzodiazepines Scrn Ur Cocaine Metabolite U Marijuana (THC) Screen U Marijuana THC Carboxy Pending Drug Screen Comment Pending SARS-CoV-2, RNA, NAAT NEGATIVE JAK2 V617F Mutation 07/14/21 07/14/21 07/14/21 07:00 07:00 07:00 WBC 9.51 RBC 4.92 Hgb 14.3 Hct 42.6 MCV 86.6 MCH 29.1 MCHC 33.6 RDW Std Deviation 46.9 H RDW Coeff of Bo 14.8 H Plt Count 244 MPV 10.5 H Sodium 137 Potassium 3.8 Chloride 103 Carbon Dioxide 24 Anion Gap 9.0 BUN 23 H Creatinine 0.83 D Est Cr Clr Drug Dosing 89.1 Est GFR ( Amer) 94.6 Est GFR (Non-Af Amer) 81.6 BUN/Creatinine Ratio 27.1 H Glucose 85 Calcium 8.8 Erythropoietin TSH 2.800 Cortisol AM Sample Ur [place] Porphobilinogen U Porphobilinogen Intrp Ur Total Porphyrins Random Uroporphyrins I Random Uroporphyrin III U Rdm Heptacarboxylpor U Rndm Hexacarboxylpor U Rdm Pentacarboxylpor U Random Coproporphyr I U Rndm Coproporphyr III Ur Porphyrins Interp Urine Opiates Screen U Codeine Confrm GC/MS Ur Morphine (GC/MS) Ur Hydrocodone (GC/MS) Ur Norhydrocodone Ur Noroxycodone Urine Oxycodone (GC/MS) U Oxymorphone GC/MS Ur Methadone, Qual Ur Hydromorphone (GC/MS) Urine Barbiturates Ur Phencyclidine (PCP) U Amphetamin/Meth Scrn MDMA (Ecstasy) Screen U Benzodiazepines Scrn Ur Cocaine Metabolite U Marijuana (THC) Screen U Marijuana THC Carboxy Drug Screen Comment SARS-CoV-2, RNA, NAAT JAK2 V617F Mutation Pending 07/14/21 07:00 WBC RBC Hgb Hct MCV MCH MCHC RDW Std Deviation RDW Coeff of Bo Plt Count MPV Sodium Potassium Chloride Carbon Dioxide Anion Gap BUN Creatinine Est Cr Clr Drug Dosing Est GFR ( Amer) Est GFR (Non-Af Amer) BUN/Creatinine Ratio Glucose Calcium Erythropoietin TSH Cortisol AM Sample Pending Ur [place] Porphobilinogen U Porphobilinogen Intrp Ur Total Porphyrins Random Uroporphyrins I Random Uroporphyrin III U Rdm Heptacarboxylpor U Rndm Hexacarboxylpor U Rdm Pentacarboxylpor U Random Coproporphyr I U Rndm Coproporphyr III Ur Porphyrins Interp Urine Opiates Screen U Codeine Confrm GC/MS Ur Morphine (GC/MS) Ur Hydrocodone (GC/MS) Ur Norhydrocodone Ur Noroxycodone Urine Oxycodone (GC/MS) U Oxymorphone GC/MS Ur Methadone, Qual Ur Hydromorphone (GC/MS) Urine Barbiturates Ur Phencyclidine (PCP) U Amphetamin/Meth Scrn MDMA (Ecstasy) Screen U Benzodiazepines Scrn Ur Cocaine Metabolite U Marijuana (THC) Screen U Marijuana THC Carboxy Drug Screen Comment SARS-CoV-2, RNA, NAAT JAK2 V617F Mutation
[2021-07-14 08:22] LABS: BUN Creatinine Ratio 27.1 (10-20); Calcium 8.8 mg/dl (8.5-10.1); Creatinine Clr Calc Pharmacy 89.1 ml/min; Est GFR (African American) 94.6 ml/min; Est GFR (Non-African American) 81.6 ml/min; Potassium 3.8 mmol/L (3.5-5.1)
[2021-07-14 08:24] LABS: Thyroid Stimulating Hormone 2.8 uIu/ml (0.300-4.500)
--- NOTE | 2021-07-14 15:50 | Anesthesiology Consultation ---
Date of Service July 14, 2021 Assessment & Plan (1) Encounter for pre-operative examination: Chart Review Chart Review: Acceptable Risk for Surgery and Patient NOT seen in Pre Admission Testing Consults Requested none History Surgery Operation Date: 07/14/21 10:40 Proposed Procedures p Esophagogastroduodenoscopy - Joshua Bradford Height/Weight Height: 5 ft 6 in Weight: 87.1 kg Allergies Allergy/AdvReac Type Severity Reaction Status Date / Time codeine AdvReac Mild GI SYMPTOMS Verified 07/12/21 16:55 hydromorphone [From Dilaudid] AdvReac Mild Nausea Verified 07/12/21 16:55 morphine AdvReac Mild N/V Verified 07/12/21 16:55 tramadol AdvReac Mild GI SYMPTOMS Verified 07/12/21 16:55 Medications Home Medications Medication Instructions Recorded Confirmed Last Taken clonazepam 0.5 mg tablet 0.25 mg PO BID 05/16/21 07/12/21 Unknown quetiapine 25 mg tablet 50 mg PO HS 05/16/21 07/12/21 Unknown sucralfate 100 mg/mL oral 5 ml PO QID 05/16/21 07/12/21 Unknown suspension albuterol sulfate 90 mcg/actuation 2 puff INHALATION QID PRN #8.5 g 05/20/21 07/12/21 Unknown aerosol inhaler [id number] 1 cap PO Q6H PRN #10 cap 05/20/21 07/12/21 Unknown 50 mg-300 mg-40 mg capsule (Fioricet) pantoprazole 40 mg tablet,delayed 40 mg PO BID #0 tab 05/20/21 07/12/21 Unknown release propranolol 60 mg capsule,24 60 mg PO DAILY #30 cap 05/20/21 07/12/21 Unknown hr,extended release (Inderal [place]) fluticasone propionate 50 2 spray INTRANASAL DAILY 07/12/21 07/12/21 Unknown mcg/actuation nasal spray,suspension ipratropium 0.5 mg-albuterol 3 mg 3 ml INHALATION Q6H PRN 07/12/21 07/12/21 Unknown (2.5 mg base)/3 mL nebulization soln lisinopril 20 mg tablet 20 mg PO DAILY 07/12/21 07/12/21 Unknown Active Medications Generic Name Dose Route Start Last Admin Trade Name Freq PRN Reason Stop Dose Admin Clonazepam 0.25 mg 07/13/21 04:00 07/14/21 08:14 Clonazepam 0.25 Mg Tab PO 08/12/21 03:59 Not Given BID TAM Fluticasone Propionate 2 sprays 07/13/21 09:00 07/14/21 08:14 Fluticasone Propionate Na Spr 16 Gm Btl NA 08/12/21 08:59 Not Given DAILY TAM Hydralazine HCl 10 mg 07/13/21 03:21 07/13/21 03:35 Hydralazine Hcl 20 Mg/Ml Vial IV 08/12/21 03:20 10 mg Q8 PRN Administration Blood Pressure - High Hydromorphone HCl 0.5 mg 07/13/21 03:21 07/14/21 15:52 Hydromorphone Inj 0.5 Mg/0.5 Ml Syr IV 07/27/21 03:20 0.5 mg Q4H PRN Administration Pain Lactated Ringer's 1,000 mls @ 125 mls/hr 07/13/21 03:21 07/14/21 15:52 Lr IV 08/12/21 03:20 125 mls/hr .Q8H TAM Administration Pantoprazole Sodium 40 mg/ 10 mls @ 5 mls/min 07/13/21 04:00 07/14/21 08:15 Syringe IV 08/12/21 03:59 5 mls/min BID TAM Administration Labetalol HCl 10 mg 07/12/21 14:50 07/13/21 04:33 Labetalol Hcl Iv 5 Mg/Ml 20ml IV 08/11/21 14:49 10 mg Q10M PRN Administration Hypertension Lisinopril 20 mg 07/13/21 09:00 07/14/21 08:14 Lisinopril 20 Mg Tab PO 08/12/21 08:59 Not Given DAILY TAM Ondansetron HCl 4 mg 07/13/21 03:21 07/13/21 03:32 Ondansetron Inj 2 Mg/Ml 2 Ml Vial IV 08/12/21 03:20 4 mg Q6H PRN Administration Nausea Propranolol HCl 60 mg 07/13/21 09:00 07/14/21 08:14 Propranolol Hcl 60 Mg [place] PO 08/12/21 08:59 Not Given DAILY TAM Quetiapine Fumarate 50 mg 07/13/21 04:00 07/13/21 21:23 Quetiapine Fumarate 25 Mg Tablet PO 08/12/21 03:59 50 mg HS TAM Administration Sucralfate 0.5 gm 07/13/21 09:00 07/13/21 12:33 Sucralfate 1 Gm/10 Ml Udc PO 08/12/21 08:59 0.5 gm QID TAM Administration Past Medical History Medical History (Updated 07/14/21 @ 15:49 by Baljit Olmos MD) Anxiety Encounter for pre-operative examination Gastritis Hepatitis C Hx of Crohn's disease Hyperglycemia Hypertension Hypertensive emergency Hypokalemia Leukocytosis Migraine Nausea & vomiting UTI (urinary tract infection) Vomiting Exercise / Class Metabolic Activity II 4-5 Yardwork/Stairs/Walk up hill Past Family History Family History Other Hypertension Past Surgical History Surgical History History of appendectomy History of delivery History of orthopedic surgery Past Anesthesia History No Hx of Anesthesia Complications and No Family Hx of Anesthesia Complications History of PONV No Hx of PONV and No Hx of Motion Sickness Social History Smoking Status: Current every day smoker tobacco type: cigarettes Smoking cigarettes per day: 20 Hx Alcohol Use: No Hx Substance Use: Yes substance use type: marijuana Substance Use Type Other:: aprazolam Last Used Substance: Days (ago) Last Used Substance Other:: a couple weeks Physical Exam Vital Signs Last Vital Signs Temp 36.8 C 07/14/21 11:13 Pulse 50 L 07/14/21 11:13 Resp 16 07/14/21 11:13 BP 102/63 07/14/21 11:13 Pulse Ox 93 07/14/21 11:13 Testing Laboratory Results 07/14/21 07:00 07/14/21 07:00 Urine Color Yellow 07/12/21 Unknown Urine Appearance Clear (Clear) 07/12/21 Unknown Urine pH >= 9.0 (4.5-7.5) H 07/12/21 Unknown Ur Specific [place] 1.020 (1.000-1.030) 07/12/21 Unknown Urine Protein 3+ (Negative) H 07/12/21 Unknown Urine Glucose (UA) Trace (Negative) H 07/12/21 Unknown Urine Ketones Negative (Negative) 07/12/21 Unknown Urine Nitrite Negative (Negative) 07/12/21 Unknown Ur Leukocyte Esterase Negative (Negative) 07/12/21 Unknown Urine WBC (Auto) 1-5 /hpf (0-5) 07/12/21 Unknown Urine RBC (Auto) 0-4 /hpf (0-4) 07/12/21 Unknown U Hyaline Cast (Auto) 1-5 /lpf (0-5) 07/12/21 Unknown U Epithel Cells (Auto) 20-30 /lpf (0-5) H 07/12/21 Unknown Urine Bacteria (Auto) Negative (Negative) 07/12/21 Unknown Electrocardiogram Date: 05/16/21 DICTATED BY:Justus Jimenez MD Test Reason : Blood Pressure : / mmHG Vent. Rate : 057 BPM Atrial Rate : 057 BPM P-R Int : 130 ms QRS Dur : 096 ms QT Int : 416 ms P-R-T Axes : 028 005 013 degrees QTc Int : 404 ms Poor data quality, interpretation may be adversely affected Sinus bradycardia Otherwise normal ECG When compared with ECG of 29-OCT-2020 05:57, T wave inversion now evident in Inferior leads QT has shortened Confirmed by Justus Jimenez ([id number]) on 05/17/2021 8:53:56 AM Chest X-Ray Date: 05/16/21 XR chest 1V portable CLINICAL HISTORY: vomiting COMPARISON STUDY: Chest radiograph October 28, 2017. FINDINGS: Lung volumes are normal. Lungs are clear. There is no pneumothorax or pleural effusion. Cardiac size is normal. Mediastinal contours are normal. There is no evidence for pulmonary edema. IMPRESSION: No acute cardiopulmonary findings. Echocardiogram Date: 10/28/20 Normal LV size and systolic function. EF 55-60%. No RWMA. Mild to moderate LVH. No significant valvular abnormalities.
[2021-07-14] MEDS ORDERED: ATROPINE SULFATE 0.1 MG/ML 10ML SYR IV PRN (15:55)
[2021-07-14] MEDS ORDERED: ONDANSETRON INJ 2 MG/ML 2 ML VIAL IV PRN (15:55)
[2021-07-14] MEDS ORDERED: PROMETHAZINE HCL 6.25 MG in SODIUM CHLORIDE 0.9% 50 ML IV PRN (15:55)
[2021-07-14] MEDS ORDERED: ePHEDrine sulfate 50 MG/ML AMP IV PRN (15:55)
[2021-07-14] MEDS ORDERED: fentaNYL citrate 100 MCG/2 ML VIAL IV PRN (15:55)
[2021-07-14] MEDS ORDERED: fentaNYL citrate 100 MCG/2 ML VIAL ONE (16:43)
[2021-07-14] MEDS ORDERED: PROPOFOL IV EMULSION 10 MG/ML 20 ML VIAL IV ONE ×2 (16:50)
[2021-07-14] MEDS ORDERED: LIDOCAINE 2% 2 ML VIAL/AMP(20MG/ML) INFIL ONE (16:50)
[2021-07-14] MEDS ORDERED: ONDANSETRON INJ 2 MG/ML 2 ML VIAL ONE (16:51)
--- NOTE | 2021-07-14 16:58 | GI REPORT ---
Patient Name: Charleen Mathis Procedure Date: 07/14/2021 4:37 PM Date of : 1970 Admit Type: Inpatient Age: 51 Gender: Female Attending MD: Joshua Bradford MD Procedure: Upper GI endoscopy Providers: Joshua Bradford MD Referring MD: Referred Self Indications: Epigastric abdominal pain, Nausea with vomiting Medicines: Monitored Anesthesia Care Complications: No immediate complications. Estimated blood loss: Minimal. Estimated Blood Loss: Estimated blood loss was minimal. Procedure: Pre-Anesthesia Assessment: - The risks and benefits of the procedure and the sedation options and risks were discussed with the patient. All questions were answered and informed consent was obtained. After obtaining informed consent, the endoscope was passed under direct vision. Throughout the procedure, the patient's blood pressure, pulse, and oxygen saturations were monitored continuously. The Endoscope was introduced through the mouth, and advanced to the second part of duodenum. The upper GI endoscopy was accomplished without difficulty. The patient tolerated the procedure well. Procedure and risks explained to patient which include but not limited to medication reaction, bleeding, perforation, aspiration , and missed lesions. Judicious gas insufflation was used and gas removal done on the way out. The lumen was always visualized when advancing the scope. Prep was good. Washes and suctioning used as needed to get good visualization of the mucosa. Retroflexion to look at the fundus and cardia of the stomach and GE junction was done. Findings: Esophagogastric landmarks were identified: the Z-line was found at 33 cm from the incisors. A 3 cm hiatal hernia was present. LA Grade C (one or more mucosal breaks continuous between tops of 2 or more mucosal folds, less than 75% circumference) esophagitis was found in the lower third of the esophagus. Biopsies were taken with a cold forceps for histology. Estimated blood loss was minimal. The gastric antrum was normal. Biopsies were taken with a cold forceps for Helicobacter pylori testing. Estimated blood loss was minimal. Diffuse moderately erythematous mucosa was found in the first portion of the duodenum and in the second portion of the duodenum. The exam was otherwise without abnormality. Impression: - Esophagogastric landmarks identified. - 3 cm hiatal hernia. - LA Grade C reflux and erosive esophagitis. Biopsied. - Normal antrum. Biopsied. - Erythematous duodenopathy. - The examination was otherwise normal. Recommendation: - Return [facility] to [facility] for ongoing care. Joshua Bradford M.D. Joshua Bradford MD 07/14/2021 4:58:23 PM This report has been signed electronically. Note Initiated On: 07/14/2021 4:37 PM Number of Addenda: 0 I attest to the content of the Intraoperative Record and orders documented therein, exceptions below {[id number]}
--- NOTE | 2021-07-14 17:18 | Anesthesiology Progress Note ---
Date of Service July 14, 2021 Anesthesia Post Procedure Vital Signs Vital Signs: Temp Pulse Pulse Pulse Resp BP BP 07/14/21 17:10 53 L 15 107/61 07/14/21 17:00 36.1 C L 66 19 97/41 L 07/14/21 16:11 36.7 C 53 L 18 164/82 H 07/14/21 15:52 36.8 C 50 L 16 148/87 H 07/14/21 11:13 36.8 C 50 L 16 102/63 07/14/21 07:30 36.4 C L 59 L 18 105/69 07/14/21 02:59 36.9 C 60 18 115/68 07/13/21 23:33 61 07/13/21 22:28 36.8 C 67 18 116/70 07/13/21 19:50 36.9 C 60 18 118/68 Pulse Ox 07/14/21 17:10 95 07/14/21 17:00 96 07/14/21 16:11 96 07/14/21 15:52 95 07/14/21 11:13 93 07/14/21 07:30 94 07/14/21 02:59 93 07/13/21 23:33 07/13/21 22:28 93 07/13/21 19:50 92 Pain Intensity Lower Abdomen: Pain Intensity: 5 Transfer of Care Handoff Completed per policy Notes Mental Status: alert / awake / arousable and participated in evaluation Patient Amnestic to Procedure: Yes Nausea / Vomiting: adequately controlled Pain: adequately controlled Airway Patency, RR, SpO2: stable & adequate BP & HR: stable & adequate Hydration State: stable & adequate Anesthetic Complications: no major complications apparent and Pt Satisfied with anesthetic care
--- NOTE | 2021-07-14 17:49 | Hospitalist Progress Note ---
Date of Service July 14, 2021 Assessment & Plan (1) Abdominal pain: Plan: Patient's initial presentation was lower abdominal pain. However pathology or stool burden is not seen on CT scan. CT scan does corroborate distended stomach she does have a history of duodenitis gastritis GI medicine performed upper endoscopy, LA grade C reflux and erosive esophagitis seen, erythematous duodenopathy (2) Gastritis: Plan: Patient be placed on twice daily PPI she will be given an advancing diet we will trend her hemoglobin and her symptoms (3) Hypertension: Plan: He was markedly hypertensive in the ER not clear whether this was from her pain or perhaps volume resuscitation typically takes lisinopril and propranolol these will be continued propranolol resolution of hypertension brings question if in concert with outpatient surreptitious substance abuse as now resolved (4) Marijuana smoker: Plan: Patient has a history of cyclic vomiting disorder with in her past medical history certainly unclear if symptoms could be related to the same (5) Hx of Crohn's disease: (6) Hepatitis C: (7) Current smoker: Plan: Patient be offered nicotine patch patient is polycythemic likely related to s moking use, however with persistence in medical record send EPO and Jak2 for eval for polycythemia vera Admission and Anticipated Discharge Date Admission Date: July 12, 2021 Subjective pt still with significant lower abdominal pain, did have EGD today with erosive esophagitis Review of Systems Review of Systems: moderate distress and fatigue no headache, no visual changes no speech or swallowing issues no chest pain, pressure or palpitations no shortness of breath, cough or wheezes lower quadrant abdominal pain, persistent nausea but no vomiting, no bowel production no dysuria, hematuria or frequency no focal joint pain or swelling no back pain, CVA tenderness or radicular pain no bruising, bleeding or rashes no focal signs of weakness or numbness or altered sensation no complaints of anxiety or depression.. Physical Exam Physical Exam: The patient appeared to [place] Vital signs as documented. Head exam is normocephalic atraumatic Neck is without JVD, thyromegaly, or carotid bruits. Lungs are clear to auscultation, no focal loss of breath sounds Cardiac exam, Rhythm is regular.. No murmurs, rubs or gallops. Abdominal exam reveals normal bowel sounds Extremities are nonedematous and both pedal pulses are present Neurologic exam is alert and oriented, no focal loss of strength or sensation Skin is without bruises or rashes Psychologically is without concerns for anxiety or depression.. Results & Data Results & Data ([facility]) Vital Signs (Past 12 Hours) Vital Signs Temp Pulse Pulse Resp BP BP Pulse Ox 07/14/21 17:30 52 L 16 115/69 93 07/14/21 17:20 97.0 F L 50 L 16 117/70 93 07/14/21 17:10 53 L 15 107/61 95 07/14/21 17:00 97.0 F L 66 19 97/41 L 96 07/14/21 16:11 98.1 F 53 L 18 164/82 H 96 07/14/21 15:52 98.2 F 50 L 16 148/87 H 95 07/14/21 11:13 98.2 F 50 L 16 102/63 93 07/14/21 07:30 97.5 F L 59 L 18 105/69 94 PG Care Time/CCT Total # of Minutes Spent Total Time Spent with Patient: Total time spent is greater than 50% in coordination of care (as documented) at patient's floor/unit and/or counseling patient: Coding Level of Care Code 91539 Subseq Hosp Care Lvl 2 Diagnoses Abdominal pain R10.9 Gastritis K29.70 Hypertension I10 Hypertension type: unspecified Marijuana smoker F12.90 Hx of Crohn's disease Z87.19 Hepatitis C B19.20 Current smoker F17.200 (1) Hypertension Hypertension type: unspecified Qualified Code(s): I10 - Essential (primary) hypertension
[2021-07-14] MEDS ORDERED: CAPSAICIN CR 0.075% 60 GM TUBE EXT ONE (19:00)
[2021-07-14] MEDS: PANTOprazole 40 MG TAB PO SCH (20:38)
[2021-07-14] MEDS: QUEtiapine FUMARATE 25 MG TABLET PO SCH (20:38)
[2021-07-14] MEDS: SUCRALFATE 1 GM/10 ML UDC PO SCH (20:39)
[2021-07-14] MEDS ORDERED: HYDROmorphone INJ 0.5 MG/0.5 ML SYR IV PRN (21:16)
[2021-07-15 01:37] LABS: Marijuana Quant, GCMS Urine 441 ng/mL (<5)
[2021-07-15] MEDS: oxyCODONE/ACETAMINOPHEN 5mg/325mg TAB PO PRN ×2 (01:46→08:52)
[2021-07-15 06:41] LABS: Hematocrit (blood only) 39.2 % (37-47); Hemoglobin 13.1 g/dL (12.0-16.0); Mean Corpuscular Hgb Conc 33.4 g/dL (32-36); Mean Corpuscular Volume 86.7 fL (80-100); Mean Platelet Volume 10.1 fL (7.4-10.4); Platelet Count 201 K/uL (130-400); RDW Coefficient of Variation 14.4 % (11.5-14.5); RDW Standard Deviation 45.8 fL (36.4-46.3); Red Blood Count 4.52 M/uL (4.2-5.4); White Blood Count 6.97 K/uL (4.8-10.8)
[2021-07-15 07:16] LABS: BUN Creatinine Ratio 19.3 (10-20); Calcium 8.8 mg/dl (8.5-10.1); Est GFR (African American) 89.4 ml/min; Est GFR (Non-African American) 77.1 ml/min; Potassium 4.2 mmol/L (3.5-5.1)
--- NOTE | 2021-07-15 08:42 | Gastroenterology Progress Note ---
Date of Service July 15, 2021 Assessment & Plan (1) Abdominal pain: Plan: Patient with chronic abdominal pain and nausea/vomiting with acute exacerbation bringing her into the hospital. Esophagitis grade C noted on EGD yesterday. Continue pantoprazole 40 mg BID, Carafate QID. Outpatient follow-up with the GI office will be arranged. Advance diet as tolerated. AM cortisol WNL. PBG and porphyrin studies are pending. Please refer to supervising physician addendum for further recommendations. Admission and Anticipated Discharge Date Admission Date: July 12, 2021 Supervising Physician Co-Signing Physician Notes Pt discharged before my rounds today so not seen by me. Subjective Patient is awake and alert and oriented sitting in bed and position of comfort. She states she is feeling better this morning. Reports abdominal pain is a 5 out of 10 which is bearable for her as she does have chronic pain. Denies any nausea or vomiting. Reports no bowel movement since admission but she has only been n.p.o. or drinking clear liquids. She has had a lot of gas. She states her diet was advanced to regular and she is get up for lunch today. She is hopeful to go home today. Review of Systems Review of Systems: All systems reviewed & are unremarkable except as noted in HPI & below Physical Exam Gastrointestinal (Abdomen): Inspection/Auscultation: abdomen normal to inspection and normal bowel sounds; abdomen not distended Percussion/Palpation: + abdomen tender (mild ) and abdomen soft; no guarding and abdomen not rigid Results & Data ([facility]) Vital Signs (Past 12 Hours) Vital Signs Temp Pulse Pulse Pulse Resp BP BP 07/15/21 08:00 36.7 C 54 L 20 121/74 07/15/21 03:08 36.8 C 64 18 112/68 07/14/21 23:56 36.8 C 64 18 101/65 07/14/21 22:20 60 Pulse Ox 07/15/21 08:00 96 07/15/21 03:08 93 07/14/21 23:56 95 07/14/21 22:20 Laboratory Results Laboratory Results - last 24 hr 07/12/21 07/14/21 07/15/21 Unknown 07:00 06:21 WBC 6.97 RBC 4.52 Hgb 13.1 Hct 39.2 MCV 86.7 MCH 29.0 MCHC 33.4 RDW Std Deviation 45.8 RDW Coeff of Bo 14.4 Plt Count 201 MPV 10.1 Sodium Potassium Chloride Carbon Dioxide Anion Gap BUN Creatinine Est Cr Clr Drug Dosing Est GFR ( Amer) Est GFR (Non-Af Amer) BUN/Creatinine Ratio Glucose Calcium Cortisol AM Sample 17.06 U Marijuana THC Carboxy 441 H Drug Screen Comment SEE NOTE 07/15/21 06:21 WBC RBC Hgb Hct MCV MCH MCHC RDW Std Deviation RDW Coeff of Bo Plt Count MPV Sodium 137 Potassium 4.2 Chloride 108 H Carbon Dioxide 26 Anion Gap 3.0 BUN 17 Creatinine 0.87 Est Cr Clr Drug Dosing 85.0 Est GFR ( Amer) 89.4 Est GFR (Non-Af Amer) 77.1 BUN/Creatinine Ratio 19.3 Glucose 100 H Calcium 8.8 Cortisol AM Sample U Marijuana THC Carboxy Drug Screen Comment Diagnostic Findings 07/14/2021: EGD notes reviewed performed by Dr. Bradford due to complaints of epigastric abdominal pain and nausea and vomiting. Z-line was 33 cm from the incisors; 3 cm hiatal hernia; LA grade C esophagitis found in the lower third of the esophagus with biopsies obtained; gastric antrum was normal with biopsies obtained; diffuse moderately erythematous mucosa found in the first portion of the duodenum and in the second portion of the duodenum. Exam was with out abnormality otherwise.
[2021-07-15] MEDS: SUCRALFATE 1 GM/10 ML UDC PO SCH ×2 (08:44→12:13)
[2021-07-15] MEDS: PANTOprazole 40 MG TAB PO SCH (08:44)
[2021-07-15] MEDS: PROPRANOLOL HCL 60 MG LA CAP PO SCH (08:44)
[2021-07-15] MEDS: lisinopril 20 MG TAB PO SCH (08:44)
[2021-07-15] MEDS: FLUTICASONE PROPIONATE NA SPR 16 GM BTL SCH (08:45)
[2021-07-15] MEDS: clonazePAM 0.25 MG TAB PO SCH (08:47)
[2021-07-15 12:42] LABS: Codeine Urine NEGATIVE ng/mL (<50); Hydrocodone Urine NEGATIVE ng/mL (<50); Hydromor Urine 493 ng/mL (<50); Marijuana Quant, GCMS Urine 1715 ng/mL (<5); Morphine Urine NEGATIVE ng/mL (<50); Norhydrocodone Conf Ur NEGATIVE ng/mL (<50); Noroxycodone Urine NEGATIVE ng/mL (<50); Oxycodone Urine NEGATIVE ng/mL (<50); Oxymorph Urine 83 ng/mL (<50)
--- NOTE | 2021-07-15 18:14 | Discharge Summary ---
Date of Service July 15, 2021 Admission HPI Per Admitting Provider 51 F presents to ER with abdominal pain began around 6 AM this morning. The patient describes it as sharp and achy and located in the lower abdomen. The patient denies any recent falls or trauma. Patient did have vomiting, perhaps having some vomiting of blood. Patient denies any blood thinners. Patient denies any prior history of EGD. Patient does have a history of Crohn's. Patient did try to take some pain medication today but this did not seem to team to improve her symptoms. The patient denies any alcohol tobacco or drug use. Patient has any fevers or chills. Patient is vaccinated for Covid. Patient states that the same that his symptoms have been constant. No remitting or exacerbating factors. The patient denies any recent falls trauma or being struck in the abdomen. Patient denies any dysuria or hematuria. CT scan of the ER 07/12/2021 shows no acute intra-abdominal or pelvic abnormality, there is no significant stool burden. In the ER her blood pressure became significantly elevated and she was given doses of intravenous labetalol to improve her blood pressure. When queried in the ER about her marijuana use she became extremely defensive and yelled at me, with a very similar admission in 06/02, coprophophoryns were sent but were not significantly elevated above normal limits felt not to be clinically significant will resend at this time Principal Diagnosis Erosive esophagitis Chronic cannabis use Abdominal pain Discharge Exam The patient appeared well Vital signs as documented. Lungs are clear to auscultation and appear unlabored Cardiac exam, Rhythm is regular.. No murmurs, rubs or gallops. Abdominal exam reveals normal bowel sounds, soft non tender, no masses Extremities are nonedematous and both pedal pulses are normal. Neurologic exam is alert and oriented, no focal loss of strength or sensation Skin is without bruises or rashes Psychologically is without concerns for anxiety or depression. Discharge Data Allergies Allergy/AdvReac Type Severity Reaction Status Date / Time codeine AdvReac Mild GI SYMPTOMS Verified 07/12/21 16:55 hydromorphone [From Dilaudid] AdvReac Mild Nausea Verified 07/12/21 16:55 morphine AdvReac Mild N/V Verified 07/12/21 16:55 tramadol AdvReac Mild GI SYMPTOMS Verified 07/12/21 16:55 Consultations 07/12/21 16:46 ED Decision to Admit Stat 07/13/21 12:36 Consult Gastroenterology Routine Procedures Performed Operation Date: 07/14/21 10:40 Actual Procedures p Esophagogastroduodenoscopy - Joshua Bradford Ordered Studies 07/12/21 13:05 CT abd pelvis IV con only Stat 07/12/21 14:53 CT head/brain wo con Stat Hospital Course (1) Abdominal pain: Patient's initial presentation was lower abdominal pain. However pathology or stool burden is not seen on CT scan. CT scan does corroborate distended stomach she does have a history of duodenitis gastritis GI medicine performed upper endoscopy, LA grade C reflux and erosive esophagitis seen, erythematous duodenopathy-recommends continue twice daily PPI 1 week of Carafate follow-up as an outpatient with [facility] gastro[facility]ology. Patient had some improvement of her pain with topical capsaicin which lends to question whether this is related to her chronic cannabis use she was open to continue to try the capsaicin at home (2) Gastritis: Patient be placed on twice daily PPI she will be given an advancing diet stable hemoglobin while inpatient (3) Hypertension: He was markedly hypertensive in the ER not clear whether this was from her pain or perhaps volume resuscitation typically takes lisinopril and propranolol these will be continued propranolol resolution of hypertension brings question if in concert with outpatient surreptitious substance abuse as now resolved (4) Marijuana smoker: Patient has a history of cyclic vomiting disorder with in her past medical history certainly unclear if symptoms could be related to the same (5) Hx of Crohn's disease: (6) Hepatitis C: (7) Current smoker: Patient be offered nicotine patch patient is polycythemic likely related to smoking use, however with persistence in medical record send EPO and Jak2 for eval for polycythemia vera these are pending at the time of discharge Total Time Total Time Spent Total Time Spent (In Minutes): It required greater than 30 minutes to prepare this patient for discharge Discharge Plan Discharge Items Patient Disposition: Home - Self-Care Reason For Visit: ABD PAIN, ELEVATED BLOOD PRESSURE Discharge Diagnosis: erosive esophagitis abdominal pain Activity: Resume your previous activity Non-emergency contact: Primary Care Provider Call non-emergency contact if: your symptoms worsen and you have a fever Follow-up/Referrals: Miky Aquino DO [Primary Care Provider] - 07/20/21 9:00 am Diet: Regular Addtl Attending Provider Instructions: Some strategies for reflux at home: Eat smaller and more frequent meals each dayinstead of a few large meals. This promotes digestion and can aid in preventing heartburn. Wear loose-fitting clothes to ease pressure on the stomach, which can worsenheartburn and reflux. Quit smoking if you are a smoker Do not lay down after eating for at least one hour, ideally 90 minutes avoid alcohol, caffiene, citrus or tomato based foods, and peppermint consider raising the head of your bed by propping up the legs with some wood or sleeping on an upward incline with pillows consider carefully applying the capsacian cream to you lower abdomen twice a day until the pain is gone, do not get into eyes or mouth and do not apply to open skin Pending Studies at Discharge: No Stand-Alone Forms: My [facility]cher, Smoking Cessation Medications and DC Order Prescriptions: New oxycodone 5 mg capsule 5 mg PO TID PRN (Reason: pain) Qty: 10 RF: 0 Continued quetiapine 25 mg tablet 50 mg PO HS RF: 0 clonazepam 0.5 mg tablet 0.25 mg PO BID RF: 0 propranolol [Inderal LA] 60 mg capsule,extended release 24 hr 60 mg PO DAILY Qty: 30 RF: 1 [id number]-bwtn [Fioricet] 50-300-40 mg capsule 1 cap PO Q6H PRN (Reason: headache pain) Qty: 10 RF: 0 albuterol sulfate 90 mcg/actuation HFA aerosol inhaler 2 puff INHALATION QID PRN (Reason: Shortness Of Breath Or Wheezing or Cough) Qty: 8.5 RF: 0 fluticasone propionate 50 mcg/actuation spray,suspension 2 spray INTRANASAL DAILY RF: 0 lisinopril 20 mg tablet 20 mg PO DAILY RF: 0 ipratropium-albuterol 0.5 mg-3 mg(2.5 mg base)/3 mL solution for nebulization 3 ml INHALATION Q6H PRN (Reason: Shortness Of Breath Or Wheezing) RF: 0 sucralfate 100 mg/mL suspension 5 ml PO QID Qty: 150 RF: 0 pantoprazole 40 mg tablet,delayed release (DR/EC) 40 mg PO BID Qty: 60 RF: 3 Discharge Orders: Discharge Order (Routine); Ordered 07/15/21 Ordered By: Brandt Vasquez/Other Patient Handouts: ED How to Quit Smoking Admission Data Admit Date/Time: 07/12/21 17:08 Attending Provider: Brandt Anderson Admit Provider: Brandt Anderson Primary Care Provider: Miky Aquino Other Providers: Brandt Anderson ; Joshua Bradford Other Interventions: Discharge Summary Assessment (RN) Last Done: 07/15/21 13:08 Coding Level of Care Code D/C DAY MANAGEMENT >30 MINS Diagnoses Abdominal pain R10.9 Gastritis K29.70 Hypertension I10 Hypertension type: unspecified Marijuana smoker F12.90 Hx of Crohn's disease Z87.19 Hepatitis C B19.20 Current smoker F17.200
[2021-07-20 00:22] LABS: Coproporphyrins I Random Ur 60.3 (6.5-33.2); Coproporphyrins III Random Ur 107.1 (4.8-88.6); Hexacarboxlyporphrin Urine 0.5 (< OR = 6.3); Pentacarboxylporph Ur 1.7 (< OR = 4.1); Porphobilinogen Ran Ur 0.102 mg/g creat (<0.22); Porphyrins Total Urine 217.2 (27.0-153.6)
== END 2021-07-15 14:03 | disposition home or self-care (01) ==
LOC: EDINP 12:08 → ED 12:08 → 2W 07-13 01:33 → 2N 07-14 16:28

== ENCOUNTER 2021-09-29 09:33 | Observation (INO) ==
[2021-09-29] MEDS ORDERED: SODIUM CHLORIDE 0.9% 1000ML 1,000 ML IV STA (09:41)
[2021-09-29] MEDS ORDERED: diphenhydrAMINE 50 MG/ML VIAL IV STA (09:41)
[2021-09-29] MEDS ORDERED: PROMETHAZINE 12.5 MG/50.5 ML BAG IV STA ×2 (09:41→11:04)
[2021-09-29] MEDS ORDERED: HALOPERIDOL LACTATE 5 MG/ML 1 ML VIAL IM STA (09:41)
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
[2021-09-29 10:00] LABS: Basophils # (auto) 0.05 K/uL (0-0.2); Basophils % (auto) 0.3 %; Eosinophils # (auto) 0.12 K/uL (0-0.5); Eosinophils % (auto) 0.8 %; Hematocrit (blood only) 48.6 % (37-47); Hemoglobin 16.8 g/dL (12.0-16.0); Immature Granulocytes # (auto) 0.03 K/uL (0.00-0.02); Immature Granulocytes % (auto) 0.2 %; Lymphocytes # (auto) 2.82 K/uL (1.2-3.4); Lymphocytes % (auto) 19.2 %; Mean Corpuscular Hemoglobin 29.7 pg (25-34); Mean Corpuscular Hgb Conc 34.6 g/dL (32-36); Mean Platelet Volume 11.1 fL (7.4-10.4); Monocytes # (auto) 0.56 K/uL (0.11-0.59); Monocytes % (auto) 3.8 %; Neutrophils # (auto) 11.14 K/uL (1.4-6.5); Neutrophils % (auto) 75.7 %; Platelet Count 411 K/uL (130-400); RDW Coefficient of Variation 14.3 % (11.5-14.5); Red Blood Count 5.65 M/uL (4.2-5.4); White Blood Count 14.72 K/uL (4.8-10.8)
--- NOTE | 2021-09-29 10:02 | XRay Report ---
XR KUB/Abdomen 1 view CLINICAL HISTORY: Vomiting. COMPARISON STUDY: 05/17/2021 TECHNIQUE: 2 AP views of the abdomen FINDINGS: The bowel gas pattern is within normal limits without evidence for dilatation or obstruction. There i s no evidence for organomegaly or gross intra-abdominal mass. No abnormal calcifications are seen germain ng the course of the urinary tracts bilaterally. No acute osseous pathology. IMPRESSION: 1.No acute intra-abdominal abnormality. ACT 112: Negative or not required by law. Electronically signed by: Channing Temple M.D. 09/29/2021 10:00 AM
--- NOTE | 2021-09-29 10:05 | XRay Report ---
XR chest 1V portable HISTORY: 51 years-old Female vomit acute vomiting COMPARISON: Chest radiograph 05/16/2021 TECHNIQUE: Portable AP view of the chest FINDINGS: Cardiac silhouette is mildly enlarged. No pneumothorax, pleural effusion, airspace consolidation or o vert pulmonary edema. Mild right hemidiaphragmatic elevation. Bones of the chest appear grossly intac t. IMPRESSION: No acute process. ACT 112: Negative or not required by law. The above report was generated using voice recognition software. It may contain grammatical, syntax o r spelling errors. Electronically signed by: Dontrell Ellis M.D. 09/29/2021 10:04 AM
[2021-09-29 10:36] LABS: Alanine Aminotransferase 23 U/L (7-52); Albumin Globulin Ratio 1.5 (0.9-2); Albumin Level 4.9 gm/dl (3.4-5.0); Alkaline Phosphatase 45 U/L (34-104); Anion Gap 13 (3-11); Aspartate Aminotransferase 21 U/L (13-39); BUN Creatinine Ratio 14.3 (10-20); Bilirubin,Total 0.8 mg/dl (0.2-1.0); Blood Urea Nitrogen 12 mg/dl (6-23); Calcium 10.2 mg/dl (8.5-10.1); Carbon Dioxide 24 mmol/L (21-32); Chloride 100 mmol/L (98-107); Creatinine Clr Calc Pharmacy 89.8 ml/min; Est GFR (African American) 93.3 ml/min; Est GFR (Non-African American) 80.5 ml/min; Globulin 3.3 gm/dl (2.5-4.0); Glucose 219 mg/dl (70-99(Fasting)); Lipase 11 U/L (11-82); Potassium 3.7 mmol/L (3.5-5.1); Sodium 137 mmol/L (136-145); Total Protein 8.2 gm/dl (6.0-8.3); Troponin I < 0.03 ng/ml (0-0.04)
[2021-09-29] MEDS ORDERED: SODIUM CHLORIDE 0.9% 1000ML 1,000 ML IV ONE (11:04)
[2021-09-29 11:22] LABS: Appearance Urine Clear (Clear); Bacteria Urine Automated 1+ (Negative); Bilirubin Urine Negative (Negative); Blood Urine Negative (Negative); Color Urine Yellow; Epithelial Cell Urine Auto >30 /lpf (0-5); Glucose Urine UA 2+ (Negative); Ketones Urine 2+ (Negative); Leukocyte Esterase Urine Negative (Negative); Nitrite Urine Negative (Negative); Protein Urine 2+ (Negative); RBC Urine Automated 0-4 /hpf (0-4); Specific Gravity Urine 1.015 (1.000-1.030); Urobilinogen Urine Negative (Negative)
[2021-09-29 12:06] LABS: Amphetamines+Metham, Urine Neg (Neg); Barbiturates, Urine Neg (Neg); Benzodiazepine, Urine Neg (Neg); Cocaine, Urine Neg (Neg); MDMA (Ecstacy), Urine Neg (Neg); Methadone, Urine Neg (Neg); Opiate, Urine Neg (Neg); Phencyclidine, Urine Neg (Neg)
[2021-09-29] MEDS: hydrALAZINE HCL 20 MG/ML VIAL IV ONE ×2 (14:09→14:24)
--- NOTE | 2021-09-29 14:27 | Electrocardiogram Report ---
Test Reason : Blood Pressure : / mmHG Vent. Rate : 049 BPM Atrial Rate : 049 BPM P-R Int : 134 ms QRS Dur : 090 ms QT Int : 422 ms P-R-T Axes : 065 002 003 degrees QTc Int : 381 ms Poor data quality, interpretation may be adversely affected Sinus bradycardia with sinus arrhythmia Normal ECG When compared with ECG of 16-MAY-2021 20:35, No significant change was found Confirmed by Quan Rucker ([id number]) on 09/29/2021 2:27:00 PM Referred By: Confirmed By:uQan Rucker
[2021-09-29] MEDS ORDERED: CAPSAICIN CR 0.075% 60 GM TUBE EXT ONE (14:34)
[2021-09-29] MEDS ORDERED: oxyCODONE HCL IR 5 MG TAB (IMMEDIATE RELEASE) PO STA (15:20)
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
[2021-09-29] MEDS: hydrALAZINE HCL 20 MG/ML VIAL IV PRN ×2 (15:50→21:34)
[2021-09-29] MEDS ORDERED: MAGNESIUM HYDROXIDE SUSP 30 ML UDC PO PRN ×2 (18:57)
[2021-09-29] MEDS ORDERED: ZOLPIDEM TARTRATE 5 MG TAB PO PRN ×2 (18:57)
[2021-09-29] MEDS ORDERED: POLYETHYLENE (MIRALAX) 17 GM PACK PO PRN ×2 (18:57)
[2021-09-29] MEDS ORDERED: ACETAMINOPHEN 325 MG TAB PO PRN ×2 (18:57)
[2021-09-29] MEDS ORDERED: ALBUTEROL HFA 8 GM INHALER INH PRN (18:57)
[2021-09-29] MEDS ORDERED: ONDANSETRON INJ 2 MG/ML 2 ML VIAL IV PRN (18:57)
[2021-09-29] MEDS ORDERED: ALUMINUM/MAGNESIUM SUSP 30 ML UDC PO PRN ×2 (18:57)
[2021-09-29] MEDS ORDERED: NSS + 20MEQ KCL 20 MEQ/1,000 ML BAG IV SCH (19:15)
[2021-09-29] MEDS: SUCRALFATE 1 GM/10 ML UDC PO SCH ×2 (19:37→20:57)
[2021-09-29] MEDS: lisinopril 20 MG TAB PO SCH (19:37)
[2021-09-29] MEDS: clonazePAM 0.5 MG TAB PO SCH (20:57)
[2021-09-29] MEDS: QUEtiapine FUMARATE 25 MG TABLET PO SCH (20:57)
[2021-09-29] MEDS: ONDANSETRON INJ 2 MG/ML 2 ML VIAL IV PRN (21:35)
[2021-09-30] MEDS ORDERED: METOPROLOL TARTRATE 1 MG/ML VIAL IV STA (00:18)
[2021-09-30 06:40] LABS: Basophils # (auto) 0.01 K/uL (0-0.2); Basophils % (auto) 0.1 %; Hematocrit (blood only) 52.6 % (37-47); Hemoglobin 18.5 g/dL (12.0-16.0); Immature Granulocytes # (auto) 0.05 K/uL (0.00-0.02); Immature Granulocytes % (auto) 0.3 %; Lymphocytes # (auto) 1.97 K/uL (1.2-3.4); Lymphocytes % (auto) 10.3 %; Mean Corpuscular Hemoglobin 29.6 pg (25-34); Mean Corpuscular Hgb Conc 35.2 g/dL (32-36); Mean Corpuscular Volume 84.2 fL (80-100); Mean Platelet Volume 10.3 fL (7.4-10.4); Monocytes # (auto) 1.52 K/uL (0.11-0.59); Monocytes % (auto) 7.9 %; Neutrophils # (auto) 15.59 K/uL (1.4-6.5); Neutrophils % (auto) 81.4 %; Platelet Count 314 K/uL (130-400); RDW Coefficient of Variation 14.5 % (11.5-14.5); RDW Standard Deviation 44.6 fL (36.4-46.3); Red Blood Count 6.25 M/uL (4.2-5.4); White Blood Count 19.14 K/uL (4.8-10.8)
[2021-09-30 07:07] LABS: BUN Creatinine Ratio 18.7 (10-20); Calcium 9.5 mg/dl (8.5-10.1); Creatinine Clr Calc Pharmacy 77.6 ml/min; Est GFR (African American) 84.7 ml/min; Est GFR (Non-African American) 73.1 ml/min; Magnesium 1.7 mg/dl (1.7-2.4); Potassium 3.8 mmol/L (3.5-5.1)
[2021-09-30] MEDS: SUCRALFATE 1 GM/10 ML UDC PO SCH ×4 (07:56→20:50)
[2021-09-30] MEDS: lisinopril 20 MG TAB PO SCH (07:56)
[2021-09-30] MEDS: clonazePAM 0.5 MG TAB PO SCH ×2 (07:57→20:50)
--- NOTE | 2021-09-30 10:06 | Hospitalist Progress Note ---
Date of Service September 30, 2021 Assessment & Plan (1) Intractable cyclical vomiting with nausea: Plan: Attending: Dr. Galeas Impression: Mrs. Mathis is a 51 year old female with a history of Hypertension, Obesity, Anxiety, Atypical Migraine, JR, Hepatitis C, Crohn's Disease, Tobacco Use, Marijuana Use, COPD, Secondary Polycythemia, Prediabetes, and Cyclical Vomiting Syndrome. She self presented to the emergency department after vomiting a relatively clear fluid at home x1. She then reports further vomiting in the emergency department. The last time she had intractable nausea/vomiting was about 3 to 4 months ago. She follows with gastroenterology and was scheduled for repeat colonoscopy in the next week or 2. Since admission patient has no further episodes of nausea or vomiting. Normal CXR and KUB. Leukocytosis with white count of 14.72 on admission and 19.14 today. No evidence of infection other than white count. Afebrile. No diarrhea. Currently no antibiotics. We will check a procalcitonin with a.m. labs. Patient reports that the only thing that helps at home is marijuana use. She received IV Marinol 5 mg in the ED. Continue supportive care Advance diet to clear liquids. If she does well, advance to full liquids tonight and reevaluate in the morning (2) Cyclic vomiting syndrome: Plan: -- Manage as outlined above. (3) Hypertension: Plan: Patient was markedly hypertensive on presentation at 267/132. She was not able to take her usual dose of Lisinopril today. She received IV Hydralazine 5 mg followed by a second dose of 10 mg in the emergency department Since admission patient has been hemodynamically stable and blood pressure all day today has been with systolic pressure in the 120s Continue home dose of lisinopril 20 mg p.o. daily Continue as needed hydralazine as needed (4) Hypomagnesemia: Plan: Magnesium 1.8 Other electrolytes are balanced Most likely secondary to vomiting We will replete with 1 g of magnesium sulfate IV Check electrolytes again in the morning Plan: Disposition: Patient doing well today. No further vomiting or nausea. Imaging nonrevealing. Patient continues with leukocytosis but is otherwise without significant finding. Advance diet to clears and then to full liquids as tolerated tonight. If patient does well with diet advanced tomorrow and discharge home. Patient reports that she is scheduled for outpatient colonoscopy with her performance improvement specialist Dr. Villalobos in the next week or two Admission and Anticipated Discharge Date Admission Date: September 29, 2021 Supervising Physician Co-Signing Physician Notes chart reviewed, case d/w E John PAC Subjective Attending: Dr. Galeas Patient seen and examined in room 254. She has no further n/v but has vague abdominal pain that she is unable to clearly define intensity. No diarrhea. No hematemesis. No fever or chills. Has been NPO since admission. Denies need for nicotine patch. No other acute complaints. Review of Systems Review of Systems: All systems reviewed & are unremarkable except as noted in Subjective Physical Exam Physical Exam: GENERAL : No acute distress EYES: No icterus, gaze conjugate NOSE: No evidence of epistaxis MOUTH: No lesions or candidiasis NECK: Supple LUNGS: CTA B/L, no wheezes, rales or rhonchi HEART: Regular, rate controlled ABDOMEN: Soft, NT, ND, BS Present. No pain with deep palpation. No guarding. No rebound tenderness. Tympanic to percussion EXTREMITIES: No LE edema, pedal pulses intact NEURO: A&OX3 Results & Data Results & Data ([facility]) Vital Signs (Past 12 Hours) Vital Signs Temp Pulse Pulse Resp BP BP BP 09/30/21 07:07 36.9 C 98 H 21 120/76 09/30/21 03:47 36.9 C 91 H 20 166/114 H 09/30/21 00:38 120 H 185/133 H 09/30/21 00:00 120 H 09/29/21 23:00 36.7 C 112 H 20 195/129 H Pulse Ox 09/30/21 07:07 95 09/30/21 03:47 94 09/30/21 00:38 09/30/21 00:00 09/29/21 23:00 94 Critical Care Results & Data Vital Signs (Past 12 Hours) Vital Signs Temp Pulse Resp BP BP Pulse Ox 09/30/21 15:12 36.5 C 70 20 129/82 95 09/30/21 11:18 36.3 C L 107 H 20 125/83 93 09/30/21 07:07 36.9 C 98 H 21 120/76 95 Lab & Micro Results (Past 24 Hours) RBC 6.25 M/uL (4.2-5.4) H 09/30/21 WBC 19.14 K/uL (4.8-10.8) H 09/30/21 Hgb 18.5 g/dL (12.0-16.0) H 09/30/21 Hct 52.6 % (37-47) H 09/30/21 MCV 84.2 fL (80-100) 09/30/21 MCH 29.6 pg (25-34) 09/30/21 MCHC 35.2 g/dL (32-36) 09/30/21 RDW Standard Deviation 44.6 fL (36.4-46.3) 09/30/21 RDW Coefficient of Variation 14.5 % (11.5-14.5) 09/30/21 Plt Count 314 K/uL (130-400) 09/30/21 MPV 10.3 fL (7.4-10.4) 09/30/21 Neutrophils (%) (Auto) 81.4 % 09/30/21 Lymphocytes (%) (Auto) 10.3 % 09/30/21 Monocytes # (Auto) 1.52 K/uL (0.11-0.59) H 09/30/21 Eosinophils # (Auto) 0.00 K/uL (0-0.5) 09/30/21 Immature Granulocyte % (Auto) 0.3 % 09/30/21 Neutrophils # (Auto) 15.59 K/uL (1.4-6.5) H 09/30/21 Lymphocytes # (Auto) 1.97 K/uL (1.2-3.4) 09/30/21 Monocytes # (Auto) 1.52 K/uL (0.11-0.59) H 09/30/21 Eosinophils # (Auto) 0.00 K/uL (0-0.5) 09/30/21 Basophils # (Auto) 0.01 K/uL (0-0.2) 09/30/21 Immature Granulocyte # (Auto) 0.05 K/uL (0.00-0.02) H 09/30/21 Na 134 mmol/L (136-145) L 09/30/21 K 3.8 mmol/L (3.5-5.1) 09/30/21 Cl 101 mmol/L (98-107) 09/30/21 CO2 20 mmol/L (21-32) L 09/30/21 Anion Gap 13 (3-11) H 09/30/21 BUN 17 mg/dl (6-23) 09/30/21 Creatinine 0.91 mg/dl (0.6-1.2) 09/30/21 Estimated GFR ( Amer) 84.7 ml/min 09/30/21 Estimated GFR (Non-Af Amer) 73.1 ml/min 09/30/21 BUN/Creatinine Ratio 18.7 (10-20) 09/30/21 Glu 128 mg/dl (70-99(Fasting)) H 09/30/21 Ca 9.5 mg/dl (8.5-10.1) 09/30/21 Mg 1.7 mg/dl (1.7-2.4) 09/30/21 06:21 09/30/21 Calcium Level 9.5 mg/dl (8.5-10.1) 09/30/21 06:21 09/30/21 Microbiology 09/29/21 10:35 Urine Culture - Final Urine,Clean Catch More than three types of organisms present, all high counts mixed probable skin garima - No further identifications or sensitivities to follow. I & O Totals 24 Hours 09/29/21 09/30/21 10/01/21 06:59 06:59 06:59 Intake Total 3101.0 / 3101.0 100 / 100 Balance 3101.0 / 3101.0 100 / 100 Cumulative 09/29/21 09:21 thru 09/30/21 13:57 Intake Total 3201.0 Balance 3201.0 RT Ventilator Mngmt (Last Documented) Ventilator Ordered Settings Respiratory Rate 20 09/30/21 15:12 Ventilator - PT Measurements Respiratory Rate 20 PG Care Time/CCT Total # of Minutes Spent Total Time Spent with Patient: Total time spent is greater than 50% in coordination of care (as documented) at patient's floor/unit and/or counseling patient: 35 minutes Coding Level of Care Code 75041 Subseq Hosp Care Lvl 2 Diagnoses Intractable cyclical vomiting with nausea R11.15 Cyclic vomiting syndrome R11.15 Hypertension I10 Hypertension type: unspecified Hypomagnesemia E83.42 Time Spent (min) 35 (1) Hypertension Hypertension type: unspecified Qualified Code(s): I10 - Essential (primary) hypertension
[2021-09-30] MEDS ORDERED: MAGNESIUM SULFATE / D5W 1 GM/100 ML BAG IV ONE (10:15)
[2021-09-30] MEDS: ONDANSETRON INJ 2 MG/ML 2 ML VIAL IV PRN (11:38)
[2021-09-30] MEDS: QUEtiapine FUMARATE 25 MG TABLET PO SCH (20:50)
[2021-09-30] MEDS ORDERED: SODIUM CHLORIDE 0.9% 1000ML 500 ML IV ONE ×2 (22:08→23:25)
[2021-10-01 00:02] LABS: Marijuana Quant, GCMS Urine 520 ng/mL (<5)
[2021-10-01 06:12] LABS: Basophils # (auto) 0.03 K/uL (0-0.2); Basophils % (auto) 0.2 %; Eosinophils % (auto) 0.8 %; Hematocrit (blood only) 48.5 % (37-47); Hemoglobin 16.4 g/dL (12.0-16.0); Immature Granulocytes # (auto) 0.02 K/uL (0.00-0.02); Immature Granulocytes % (auto) 0.2 %; Lymphocytes # (auto) 3.63 K/uL (1.2-3.4); Lymphocytes % (auto) 29.4 %; Mean Corpuscular Hemoglobin 29.1 pg (25-34); Mean Corpuscular Hgb Conc 33.8 g/dL (32-36); Mean Corpuscular Volume 86.1 fL (80-100); Mean Platelet Volume 10.6 fL (7.4-10.4); Monocytes # (auto) 0.97 K/uL (0.11-0.59); Monocytes % (auto) 7.9 %; Neutrophils # (auto) 7.59 K/uL (1.4-6.5); Neutrophils % (auto) 61.5 %; Platelet Count 280 K/uL (130-400); RDW Coefficient of Variation 14.9 % (11.5-14.5); RDW Standard Deviation 47.3 fL (36.4-46.3); Red Blood Count 5.63 M/uL (4.2-5.4); White Blood Count 12.34 K/uL (4.8-10.8)
[2021-10-01 06:45] LABS: BUN Creatinine Ratio 30.5 (10-20); Calcium 8.3 mg/dl (8.5-10.1); Creatinine Clr Calc Pharmacy 74.4 ml/min; Est GFR (African American) 80.4 ml/min; Est GFR (Non-African American) 69.4 ml/min; Magnesium 2.1 mg/dl (1.7-2.4); Potassium 3.6 mmol/L (3.5-5.1)
--- NOTE | 2021-10-01 07:39 | Communication Note ---
Date of Service: October 01, 2021 Messaged about BP 76/49, 86/58 at 10PM. Provided fluid bolus. Subsequent BPs improved.
[2021-10-01] MEDS: clonazePAM 0.5 MG TAB PO SCH ×2 (08:35→21:37)
[2021-10-01] MEDS: lisinopril 20 MG TAB PO SCH (08:35)
[2021-10-01] MEDS: SUCRALFATE 1 GM/10 ML UDC PO SCH ×4 (08:35→21:37)
--- NOTE | 2021-10-01 13:21 | Hospitalist Progress Note ---
Date of Service October 01, 2021 Assessment & Plan (1) Intractable cyclical vomiting with nausea: Plan: Mrs. Mathis is a 51 year old female with a history of Hypertension, Obesity, Anxiety, Atypical Migraine, JR, Hepatitis C, Crohn's Disease, Tobacco Use, Marijuana Use, COPD, Secondary Polycythemia, Prediabetes, and Cyclical Vomiting Syndrome. She self presented to the emergency department after vomiting a relatively clear fluid at home x1. She then reports further vomiting in the emergency department. The last time she had intractable nausea/vomiting was about 3 to 4 months ago. She follows with gastroenterology and is scheduled for repeat colonoscopy on 10/25/21. Since admission patient has no further episodes of nausea or vomiting. Normal CXR and KUB. She does have a leukocytosis noted but appears to be chronic, WBC 12.3 this morning. Currently not requiring antibiotics. Procalcitonin level <0.05. Patient reports that the only thing that helps at home is marijuana use. She received IV Marinol 5 mg in the ED. Continue supportive care. Advance to TXD for lunch, followed by advancing to regular diet as tolerated. Downgrade from telemetry to med/surg. (2) Cyclic vomiting syndrome: Plan: Manage as outlined above. (3) Hypertension: Plan: Patient was markedly hypertensive on presentation at 267/132. BP decreased to 76/49 overnight, received IV fluids with resolution. She did take Lisinopril 20 mg PO daily this morning, has remained normotensive. Recommend to monitor BP x 24 hours, can discharge to home on 10/02 if she remains stable. (4) Hypomagnesemia: Plan: - Now resolved, mag level 2.1. (5) Polycythemia: Plan: Hgb/Hct elevated, appears to be an issue in the past as well. Likely a secondary polycythemia related to tobacco abuse. Encouraged cessation of tobacco products. Plan: Disposition: Discharge to home on 10/02 if she continues to feel well and is tolerating regular diet. Will monitor BP over the next 24 hours. She will require outpatient colonoscopy on 10/25/21. Admission and Anticipated Discharge Date Admission Date: September 29, 2021 Supervising Physician Co-Signing Physician Notes Attending Attestation - Chart reviewed in detail, care plan d/w МАРИНА Ball. I agree with the alcantar components of her documentation. Jeffery Germain MD Subjective Ms. Mathis is doing well overall - has not had any episodes of nausea/vomiting since yesterday, 09/30/21. She is tolerating a clear liquid diet, will advance to FLD starting this afternoon. Does continue to experience abd cramping. She had a formed BM this morning. Patient has a chronically elevated H/H - likely secondary polycythemia related to tobacco abuse. Her BP decreased overnight to 76/49 - she denies dizziness during episode. BP has now improved. Plan to advance diet and monitor x 24 hours, including close monitoring of BP over the next day. Review of Systems Review of Systems: Constitutional: Negative for weight loss, night sweats, or fever Eyes: Negative for event change of vision ENT: Negative for epistaxis, nasal discharge, sore throat, or deafness Cardiovascular: Negative for anginal type chest pain, palpitations, dizziness, diaphoresis Respiratory: Negative for new shortness of breath,hemoptysis, or purulent cough Gastrointestinal: Negative for diarrhea, hematemesis, melena, nausea, vomiting, or dyspepsia Integumentary (skin): Negative for rash or jaundice discoloration Genitourinary: Negative for urinary frequency, hematuria, or dysuria Neurological: Negative for weakness, seizure activity, headache, or dizziness Lymphatic/Hematologic: Negative for petechiae, bleeding or new adenopathy Musculoskeletal: Negative for new joint or back pain Allergic/Immunologic: Negative for unusual rash or pruritis Physical Exam Physical Exam: Constitutional: Vitals are stable Respiratory: Lung sounds were generally clear bilaterally. Cardiovascular: Heart was RRR without significant murmur, gallops or rubs. Gastrointestinal: No palpable hepatic or splenomegaly. The abdomen was soft with normal bowel sounds. Musculoskeletal System: The musculoskeletal system seemed concordant with age. Skin: The skin was negative for jaundice. Extremities: Negative for edema or erythema Results & Data Results & Data ([facility]) Vital Signs (Past 12 Hours) Vital Signs Temp Pulse Resp BP Pulse Ox 10/01/21 11:34 36.5 C 67 20 124/84 94 10/01/21 07:31 36.6 C 78 21 134/90 95 10/01/21 03:30 36.6 C 73 20 101/60 92 Laboratory Results 10/01/21 10/01/21 10/01/21 Range/Units 05:46 05:46 05:46 WBC 12.34 H (4.8-10.8) K/uL RBC 5.63 H (4.2-5.4) M/uL Hgb 16.4 H (12.0-16.0) g/dL Hct 48.5 H (37-47) % MCV 86.1 (80-100) fL MCH 29.1 (25-34) pg MCHC 33.8 (32-36) g/dL RDW Std Deviation 47.3 H (36.4-46.3) fL RDW Coeff of Bo 14.9 H (11.5-14.5) % Plt Count 280 (130-400) K/uL MPV 10.6 H (7.4-10.4) fL Immature Gran % (Auto) 0.2 % Neut % (Auto) 61.5 % Lymph % (Auto) 29.4 % [place] % (Auto) 7.9 % Eos % (Auto) 0.8 % Baso % (Auto) 0.2 % Neut # (Auto) 7.59 H (1.4-6.5) K/uL Lymph # (Auto) 3.63 H (1.2-3.4) K/uL [place] # (Auto) 0.97 H (0.11-0.59) K/uL Eos # (Auto) 0.10 (0-0.5) K/uL Baso # (Auto) 0.03 (0-0.2) K/uL Immature Gran # (Auto) 0.02 (0.00-0.02) K/uL Sodium 133 L (136-145) mmol/L Potassium 3.6 (3.5-5.1) mmol/L Chloride 103 (98-107) mmol/L Carbon Dioxide 23 (21-32) mmol/L Anion Gap 7 (3-11) BUN 29 H (6-23) mg/dl Creatinine 0.95 (0.6-1.2) mg/dl Est Cr Clr Drug Dosing 74.4 ml/min Est GFR ( Amer) 80.4 ml/min Est GFR (Non-Af Amer) 69.4 ml/min BUN/Creatinine Ratio 30.5 H (10-20) Glucose 92 (70-99(Fasting)) mg/dl Calcium 8.3 L (8.5-10.1) mg/dl Magnesium 2.1 (1.7-2.4) mg/dl Procalcitonin < 0.05 (0-0.5) ng/ml U Marijuana THC Carboxy (<5) ng/mL Drug Screen Comment 09/29/21 Range/Units 10:35 WBC (4.8-10.8) K/uL RBC (4.2-5.4) M/uL Hgb (12.0-16.0) g/dL Hct (37-47) % MCV (80-100) fL MCH (25-34) pg MCHC (32-36) g/dL RDW Std Deviation (36.4-46.3) fL RDW Coeff of Bo (11.5-14.5) % Plt Count (130-400) K/uL MPV (7.4-10.4) fL Immature Gran % (Auto) % Neut % (Auto) % Lymph % (Auto) % [place] % (Auto) % Eos % (Auto) % Baso % (Auto) % Neut # (Auto) (1.4-6.5) K/uL Lymph # (Auto) (1.2-3.4) K/uL [place] # (Auto) (0.11-0.59) K/uL Eos # (Auto) (0-0.5) K/uL Baso # (Auto) (0-0.2) K/uL Immature Gran # (Auto) (0.00-0.02) K/uL Sodium (136-145) mmol/L Potassium (3.5-5.1) mmol/L Chloride (98-107) mmol/L Carbon Dioxide (21-32) mmol/L Anion Gap (3-11) BUN (6-23) mg/dl Creatinine (0.6-1.2) mg/dl Est Cr Clr Drug Dosing ml/min Est GFR ( Amer) ml/min Est GFR (Non-Af Amer) ml/min BUN/Creatinine Ratio (10-20) Glucose (70-99(Fasting)) mg/dl Calcium (8.5-10.1) mg/dl Magnesium (1.7-2.4) mg/dl Procalcitonin (0-0.5) ng/ml U Marijuana THC Carboxy 520 H (<5) ng/mL Drug Screen Comment SEE NOTE PG Care Time/CCT Total # of Minutes Spent Total Time Spent with Patient: Total time spent is greater than 50% in coordination of care (as documented) at patient's floor/unit and/or counseling patient: [place] [address] Subseq Hosp Care Lvl 2 Patient Type Established Diagnoses Intractable cyclical vomiting with nausea R11.15 Cyclic vomiting syndrome R11.15 Hypertension I10 Hypertension type: unspecified Hypomagnesemia E83.42 Polycythemia D75.1 (1) Hypertension Hypertension type: unspecified Qualified Code(s): I10 - Essential (primary) hypertension
[2021-10-01] MEDS: ONDANSETRON INJ 2 MG/ML 2 ML VIAL IV PRN (14:11)
[2021-10-01] MEDS ORDERED: traMADol HCL 50 MG TABLET PO PRN (18:42)
[2021-10-01] MEDS ORDERED: ACETAMINOPHEN 1000 MG/100 ML IV IV PRN (18:42)
[2021-10-01] MEDS ORDERED: HYDROmorphone INJ 0.5 MG/0.5 ML SYR IV STA (18:42)
[2021-10-01] MEDS ORDERED: PROMETHAZINE HCL 12.5 MG in SODIUM CHLORIDE 0.9% 50 ML IV PRN (18:42)
[2021-10-01] MEDS: QUEtiapine FUMARATE 25 MG TABLET PO SCH (21:37)
[2021-10-02 07:37] LABS: Hematocrit (blood only) 49.5 % (37-47); Hemoglobin 16.5 g/dL (12.0-16.0); Mean Corpuscular Hemoglobin 29.2 pg (25-34); Mean Corpuscular Hgb Conc 33.3 g/dL (32-36); Mean Corpuscular Volume 87.5 fL (80-100); Platelet Count 325 K/uL (130-400); RDW Coefficient of Variation 14.7 % (11.5-14.5); Red Blood Count 5.66 M/uL (4.2-5.4); White Blood Count 13.07 K/uL (4.8-10.8)
[2021-10-02] MEDS: SUCRALFATE 1 GM/10 ML UDC PO SCH ×2 (07:57→12:45)
[2021-10-02] MEDS: clonazePAM 0.5 MG TAB PO SCH (07:57)
[2021-10-02] MEDS: lisinopril 20 MG TAB PO SCH (07:57)
[2021-10-02 08:10] LABS: Albumin Globulin Ratio 1.7 (0.9-2); Bilirubin,Total 0.8 mg/dl (0.2-1.0); Calcium 8.5 mg/dl (8.5-10.1); Creatinine Clr Calc Pharmacy 77.6 ml/min; Est GFR (African American) 84.7 ml/min; Est GFR (Non-African American) 73.1 ml/min; Globulin 2.4 gm/dl (2.5-4.0); Magnesium 2.1 mg/dl (1.7-2.4); Potassium 3.4 mmol/L (3.5-5.1); Total Protein 6.4 gm/dl (6.0-8.3)
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
== END 2021-10-02 13:56 | disposition home or self-care (01) ==
LOC: ED 09:33 → INTOOBSV 17:13 → SUATTDRO 17:13 → EDINP 17:13 → 2W 18:42

== ENCOUNTER 2021-11-30 19:24 | Observation (INO) ==
[2021-11-30] MEDS ORDERED: SODIUM CHLORIDE 0.9% 1000ML 2,000 ML IV ONE (20:17)
[2021-11-30] MEDS ORDERED: PROMETHAZINE 25 MG/51 ML BAG IV STA (20:17)
[2021-11-30 20:20] LABS: Basophils # (auto) 0.02 K/uL (0-0.2); Basophils % (auto) 0.1 %; Eosinophils # (auto) 0.02 K/uL (0-0.5); Eosinophils % (auto) 0.1 %; Hematocrit (blood only) 51.9 % (37-47); Hemoglobin 18.9 g/dL (12.0-16.0); Immature Granulocytes # (auto) 0.06 K/uL (0.00-0.02); Immature Granulocytes % (auto) 0.3 %; Lymphocytes # (auto) 2.68 K/uL (1.2-3.4); Lymphocytes % (auto) 12.3 %; Mean Corpuscular Hemoglobin 30.3 pg (25-34); Mean Corpuscular Hgb Conc 36.4 g/dL (32-36); Mean Corpuscular Volume 83.2 fL (80-100); Mean Platelet Volume 11.3 fL (7.4-10.4); Monocytes # (auto) 1.68 K/uL (0.11-0.59); Monocytes % (auto) 7.7 %; Neutrophils # (auto) 17.26 K/uL (1.4-6.5); Neutrophils % (auto) 79.5 %; Platelet Count 363 K/uL (130-400); RDW Coefficient of Variation 14.3 % (11.5-14.5); RDW Standard Deviation 43.4 fL (36.4-46.3); Red Blood Count 6.24 M/uL (4.2-5.4); White Blood Count 21.72 K/uL (4.8-10.8)
[2021-11-30 20:38] LABS: Albumin Globulin Ratio 1.5 (0.9-2); Albumin Level 4.9 gm/dl (3.4-5.0); BUN Creatinine Ratio 26.4 (10-20); Bilirubin,Total 1.7 mg/dl (0.2-1.0); Calcium 10.8 mg/dl (8.5-10.1); Creatinine Clr Calc Pharmacy 51.1 ml/min; Est GFR (African American) 50.3 ml/min; Est GFR (Non-African American) 43.4 ml/min; Globulin 3.2 gm/dl (2.5-4.0); Potassium 3.6 mmol/L (3.5-5.1); Total Protein 8.1 gm/dl (6.0-8.3)
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
[2021-11-30] MEDS ORDERED: SODIUM CHLORIDE 0.9% 1000ML 1,000 ML IV ONE ×2 (21:33→23:22)
[2021-11-30] MEDS ORDERED: OPTIRAY 320 100ml IV ONE (21:50)
[2021-11-30] MEDS ORDERED: METOCLOPRAMIDE HCL INJ 5 MG/ML 2 ML VIAL IV STA (23:27)
[2021-11-30] MEDS ORDERED: ONDANSETRON INJ 2 MG/ML 2 ML VIAL IV STA (23:27)
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
[2021-12-01 00:25] LABS: Appearance Urine Clear (Clear); Bacteria Urine Automated Negative (Negative); Bilirubin Urine Negative (Negative); Blood Urine 1+ (Negative); Color Urine Yellow; Epithelial Cell Urine Auto 20-30 /lpf (0-5); Glucose Urine UA Negative (Negative); Ketones Urine Negative (Negative); Leukocyte Esterase Urine Negative (Negative); Nitrite Urine Negative (Negative); Protein Urine 1+ (Negative); RBC Urine Automated 0-4 /hpf (0-4); Specific Gravity Urine 1.038 (1.000-1.030); Urobilinogen Urine Negative (Negative); pH Urine 5.5 (4.5-7.5)
--- NOTE | 2021-12-01 02:32 | Communication Note ---
Date of Service: December 01, 2021 Holding home qam lisinopril in setting of GEORGINA.
[2021-12-01] MEDS ORDERED: ONDANSETRON INJ 2 MG/ML 2 ML VIAL IV PRN (03:00)
[2021-12-01] MEDS ORDERED: CAPSAICIN CR 0.075% 60 GM TUBE EXT PRN (03:00)
[2021-12-01] MEDS ORDERED: ACETAMINOPHEN 325 MG TAB PO PRN (03:00)
[2021-12-01] MEDS ORDERED: ALBUTEROL HFA 8 GM INHALER INH PRN (03:00)
[2021-12-01] MEDS: LACTATED RINGER'S 1,000 ML IV SCH ×2 (03:56→16:09)
[2021-12-01] MEDS: ALUMINUM/MAGNESIUM SUSP 18 ML, LIDOCAINE VISCOUS 2% SOLN 6 ML, BARCODE IDENTIFIER 1 EA PO ONE ×2 (03:57→03:58)
[2021-12-01 04:22] LABS: Magnesium 1.8 mg/dl (1.7-2.4); Phosphorus 3.6 mg/dl (2.5-4.9)
[2021-12-01] MEDS: NICOTINE 21 MG/24 HR TDSY TD SCH ×2 (04:40→09:24)
[2021-12-01] MEDS: SUCRALFATE 1 GM/10 ML UDC PO PRN ×2 (04:55→18:07)
[2021-12-01] MEDS: PROMETHAZINE HCL 6.25 MG in SODIUM CHLORIDE 0.9% 50 ML IV PRN ×2 (04:55→12:49)
[2021-12-01] MEDS ORDERED: MoRPHine SULFATE 2 MG/ML CARP IV STA (08:13)
[2021-12-01] MEDS ORDERED: oxyCODONE/ACETAMINOPHEN 5mg/325mg TAB PO STA (08:19)
--- NOTE | 2021-12-01 08:22 | Hospitalist Progress Note ---
Date of Service December 01, 2021 Assessment & Plan (1) Abdominal pain: Plan: 51yo female presenting with intractable nausea, dry heaving, abdominal pain and PO intolerance. Symptoms have been ongoing x 5 days. Patient hypertensive, otherwise hemodynamically stable but uncomfortable appearing on admission Prior admissions felt related to cyclic vomiting syndrome, however patient denies marijuana use since August making this less likely. Does have history of Crohns but not on any medications for such. -- Also endorses hx Hep C 2nd to tattoos, tx 10 years ago. Also, did have c-scope last admission in July with Dr Bradford, which did show inflammation/irritation and was to be on PPI BID, carafate. She states she has been compliant with this, and protonix was added back to home medication list and increased to BID while inpatient WBC 21.7, ?2nd to n/v/dry heaving. Tbili 1.7 but AST/ALT/ALP wnl CT A/P without acute pathology. Does show some GB thickening. Patient denies any relation to food regarding pain but will check RUQ US for completeness LR @ 80cc/hr Clear liquid diet for now -- states no further vomiting but does have nausea. No advancement for now Antiemetics, pain control prn Topical capsaicin as needed (states has been months since marijuana use) GI on consult -- was to have c-scope recently but was cancelled due to weather. GI to see this afternoon. ?NPO after midnight in case they would do scope in AM --> Of note, they did sent out porphyrin labs last admission, some elevations .?if contributing. defer to GI for interpretation Lipase LOW, ?pancreatic insufficiency, ?benefit from adding/trial of Creon? ?Patient may benefit from trial of TCA for management of cyclic vomiting - best if initiated outpatient. She was on Elavil in the past for migraine prophylaxis. (2) Acute kidney injury: Plan: Cr 1.4 on admission, baseline ~1 IVF provided, repeat now back to normal 0.98 continue gentle IVF while increasing diet. did make NPO after midnight in case GI sees/wants to scope (3) Hypertension: Plan: elevated 2nd to pain, 153/99 this morning Lisinopril held given dehydrated on exam/not much PO intake over past 4-5 days per patient IVF as above Hydralazine ordered prn HTN Continue to monitor (4) Cyclic vomiting syndrome: Plan: As above. Suspected as cause, however patient reports no recent use ANtiemetics prn as above, supportive care (5) Gastritis: Plan: Patient with epigastric discomfort, given GI cocktail x 1. Relief compared to yesterday. Denies etoh use, NSAIDs Pepcid 40mg po daily --> Discontinued, placed on protonix BID given prior EGD results and to be on PPI BID Continue carafate prn (6) Hyponatremia: Plan: La=067. Patient with chronic mild hyponatremia with Na 133 during the last several checks. Received 4L IVF so far Na improved to 132 on AM labs Continue IVF until PO intake improves TSH wnl 3.54 BMP in AM (7) Polycythemia: Plan: Elevated H/H at 18.9 and 51.9. Most likely secondary to prolonged tobacco use - 1ppd for as long as patient can remember, marijuana use. Patient had DOC-2 mutation sent 07/14/21 presumably for workup of polycythemia vera which was NOT DETECTED. Encouraged smoking cessation IVF as above, repeat cbc wnl Would rec f/u heme/onc at discharge (8) Tobacco use disorder: Plan: -Nicotine patch ordered -Smoking cessation counseling (9) Anxiety: Plan: Controlled per patient, although does seem anxious about ongoing issues -Continue home Clonazepam 0.5mg po BID -Seroquel 50mg po qHS (10) Leukocytosis: Plan: suspect 2nd to n/v as above monitor in AM as not on abx and WBC 21--> 15k without Afebrile UA contaminated CXR does have Plan: Ppx - ambulation encouraged. Will order SCDs while in bed Admission and Anticipated Discharge Date Admission Date: November 30, 2021 Subjective Patient evaluated this afternoon. Still not much of appetite, has been tolerating clear liquids. Might want to try crackers later but not very hungry. +nausea, but no further emesis. Had admitted not eating x 3-4 days. Pain to her upper abdomen. States she did have some chest pain/shortness of breath yesterday which has resolved. Stated was reproducible on palpation. Denies any heavy lifting. No alcohol use. Does smoke, about 1/2ppd. Hx of marijuana use but states has not used any of this since the beginning of the year prior to past admission. She does endorse she has been continuing to use the protonix twice daily in addition to her carafate. Was to have f/u GI for c-scope but due to weather was cancelled, not yet rescheduled. Denies any change in bowel habits/blood in stool. Discussed pattern of pain -- denies any association to food. No NSAID/ibuprofen/aleeve use. No history of pancreatitis, lipase low. ?insufficiency or benefit from creon but will await GI input. Has been using percocet that she purchased since about 4 days ago. 3 days ago nausea started. Had used and admits she has been moving her bowels, and discussed terminal supervisor use/withdrawal. She states she only started using recently. Does admit to hx Hepatitis C. Denied hx IVDU. Per patient, her PCP stated likely from prior tattos. She states she hasnt drank since about 10 years ago when treated for Hep C. Review of Systems Review of Systems: All systems reviewed & are unremarkable except as noted in HPI & below Physical Exam Physical Exam: General: WD/WN female, elderly than stated age appearing, NAD, sitting at side of bed HEENT: head atraumatic, normocephalic, slightly dry mm, trachea midline without deviation Resp: CTAB, prolonged expiratory phase, diminished in the bases with associated crackles (improved with cough), faint end expiratory wheezing, on room air, able to talk in complete sentences CV: RRR, no m/r/g, no edema, calves non-tender GI: +BS, soft, diffusely tender to palpation, primarily epigastric region, without rebound, +voluntary guarding Neuro/Psych: CN intact grossly, follows commands, no facial droop/slurred speech, strength equal bilaterally Psych: AOx3, pleasant and cooperative, but anxious appearing Skin: warm dry Results & Data Results & Data ([facility]) Vital Signs (Past 12 Hours) Vital Signs Temp Pulse Pulse Resp BP Pulse Ox 12/01/21 07:29 36.6 C 81 16 153/99 H 93 12/01/21 03:00 178/103 H 12/01/21 02:35 36.8 C 92 H 20 183/135 H 97 12/01/21 02:25 92 H 20 160/96 H 11/30/21 23:00 97 H 22 99 11/30/21 21:16 95 H 18 173/113 H 100 Laboratory Results 12/01/21 11/30/21 11/30/21 Range/Units Unknown 23:45 23:45 WBC (4.8-10.8) K/uL RBC (4.2-5.4) M/uL Hgb (12.0-16.0) g/dL Hct (37-47) % MCV (80-100) fL MCH (25-34) pg MCHC (32-36) g/dL RDW Std Deviation (36.4-46.3) fL RDW Coeff of Bo (11.5-14.5) % Plt Count (130-400) K/uL MPV (7.4-10.4) fL Immature Gran % (Auto) % Neut % (Auto) % Lymph % (Auto) % [place] % (Auto) % Eos % (Auto) % Baso % (Auto) % Neut # (Auto) (1.4-6.5) K/uL Lymph # (Auto) (1.2-3.4) K/uL [place] # (Auto) (0.11-0.59) K/uL Eos # (Auto) (0-0.5) K/uL Baso # (Auto) (0-0.2) K/uL Immature Gran # (Auto) (0.00-0.02) K/uL Sodium (136-145) mmol/L Potassium (3.5-5.1) mmol/L Chloride (98-107) mmol/L Carbon Dioxide (21-32) mmol/L Anion Gap (3-11) BUN (6-23) mg/dl Creatinine (0.6-1.2) mg/dl Est Cr Clr Drug Dosing ml/min Est GFR ( Amer) ml/min Est GFR (Non-Af Amer) ml/min BUN/Creatinine Ratio (10-20) Glucose (70-99(Fasting)) mg/dl Calcium (8.5-10.1) mg/dl Phosphorus 3.6 (2.5-4.9) mg/dl Magnesium 1.8 (1.7-2.4) mg/dl Total Bilirubin (0.2-1.0) mg/dl AST (13-39) U/L ALT (7-52) U/L Alkaline Phosphatase (34-104) U/L Total Protein (6.0-8.3) gm/dl Albumin (3.4-5.0) gm/dl Globulin (2.5-4.0) gm/dl Albumin/Globulin Ratio (0.9-2) Lipase (11-82) U/L Urine Color Yellow Urine Appearance Clear (Clear) Urine pH 5.5 (4.5-7.5) Ur Specific [place] 1.038 H (1.000-1.030) Urine Protein 1+ H (Negative) Urine Glucose (UA) Negative (Negative) Urine Ketones Negative (Negative) Urine Blood 1+ H (Negative) Urine Nitrite Negative (Negative) Urine Bilirubin Negative (Negative) Urine Urobilinogen Negative (Negative) Ur Leukocyte Esterase Negative (Negative) Urine WBC (Auto) 1-5 (0-5) /hpf Urine RBC (Auto) 0-4 (0-4) /hpf U Hyaline Cast (Auto) 1-5 (0-5) /lpf U Epithel Cells (Auto) 20-30 H (0-5) /lpf Urine Bacteria (Auto) Negative (Negative) POC Ur Test NEG (NEG) SARS-CoV-2, RNA, NAAT (NEGATIVE) 11/30/21 11/30/21 11/30/21 Range/Units 23:45 20:05 20:05 WBC 21.72 H (4.8-10.8) K/uL RBC 6.24 H (4.2-5.4) M/uL Hgb 18.9 H (12.0-16.0) g/dL Hct 51.9 H (37-47) % MCV 83.2 (80-100) fL MCH 30.3 (25-34) pg MCHC 36.4 H (32-36) g/dL RDW Std Deviation 43.4 (36.4-46.3) fL RDW Coeff of Bo 14.3 (11.5-14.5) % Plt Count 363 (130-400) K/uL MPV 11.3 H (7.4-10.4) fL Immature Gran % (Auto) 0.3 % Neut % (Auto) 79.5 % Lymph % (Auto) 12.3 % [place] % (Auto) 7.7 % Eos % (Auto) 0.1 % Baso % (Auto) 0.1 % Neut # (Auto) 17.26 H (1.4-6.5) K/uL Lymph # (Auto) 2.68 (1.2-3.4) K/uL [place] # (Auto) 1.68 H (0.11-0.59) K/uL Eos # (Auto) 0.02 (0-0.5) K/uL Baso # (Auto) 0.02 (0-0.2) K/uL Immature Gran # (Auto) 0.06 H (0.00-0.02) K/uL Sodium 129 L (136-145) mmol/L Potassium 3.6 (3.5-5.1) mmol/L Chloride 87 L (98-107) mmol/L Carbon Dioxide 27 (21-32) mmol/L Anion Gap 15 H (3-11) BUN 37 H (6-23) mg/dl Creatinine 1.40 H (0.6-1.2) mg/dl Est Cr Clr Drug Dosing 51.1 ml/min Est GFR ( Amer) 50.3 ml/min Est GFR (Non-Af Amer) 43.4 ml/min BUN/Creatinine Ratio 26.4 H (10-20) Glucose 150 H (70-99(Fasting)) mg/dl Calcium 10.8 H (8.5-10.1) mg/dl Phosphorus (2.5-4.9) mg/dl Magnesium (1.7-2.4) mg/dl Total Bilirubin 1.7 H (0.2-1.0) mg/dl AST 27 (13-39) U/L ALT 19 (7-52) U/L Alkaline Phosphatase 49 (34-104) U/L Total Protein 8.1 (6.0-8.3) gm/dl Albumin 4.9 (3.4-5.0) gm/dl Globulin 3.2 (2.5-4.0) gm/dl Albumin/Globulin Ratio 1.5 (0.9-2) Lipase 4 L (11-82) U/L Urine Color Urine Appearance (Clear) Urine pH (4.5-7.5) Ur Specific [place] (1.000-1.030) Urine Protein (Negative) Urine Glucose (UA) (Negative) Urine Ketones (Negative) Urine Blood (Negative) Urine Nitrite (Negative) Urine Bilirubin (Negative) Urine Urobilinogen (Negative) Ur Leukocyte Esterase (Negative) Urine WBC (Auto) (0-5) /hpf Urine RBC (Auto) (0-4) /hpf U Hyaline Cast (Auto) (0-5) /lpf U Epithel Cells (Auto) (0-5) /lpf Urine Bacteria (Auto) (Negative) POC Ur Test (NEG) SARS-CoV-2, RNA, NAAT NEGATIVE (NEGATIVE) Diagnostic Findings Abdomen/Pelvis CT 11/30/21 20:[address] WITH IV CONTRAST CT DOSE: 976.23 mGy.cm HISTORY: Acute generalized abdominal pain with nausea abd pain TECHNIQUE: Multiaxial CT images of the abdomen and pelvis were performed following the IV administration of 95 cc of Optiray, A dose lowering technique was utilized adhering to the principles of ALARA. COMPARISON STUDY: CT abdomen and pelvis 07/12/2021 FINDINGS: The imaged inferior cardiac chambers are unremarkable. Bronchial wall thickening with bibasilar atelectasis. The spleen, mildly atrophic pancreas, adrenal glands , mildly distended gallbladder and liver appear unremarkable. There is patency of the hepatic and portal veins. Mild bilateral pelvocaliectasis is similar to the prior study. Probable cyst of the superior pole left kidney measures 8 mm. Mild urinary bladder wall thickening with partial distention. Uterus and adnexa are unremarkable. Atherosclerosis of the aorta. There is no lymphadenopathy. There is no bowel obstruction or bowel wall thickening. Mild fecal retention. The appendix is not definitively seen. No secondary signs of acute appendicitis. Unremarkable soft tissues. Degenerative changes of the spine, pelvis and hips. IMPRESSION: 1. No acute intra-abdominal or intrapelvic abnormality. 2. No bowel obstruction or bowel wall thickening. 3. Mild bibasilar bronchial wall thickening with atelectasis. 4. Additional findings as above. ACT 112: Negative or not required by law. The above report was generated using voice recognition software. It may contain grammatical, syntax or spelling errors. Electronically signed by: Dontrell Ellis M.D. 12/01/2021 9:34 AM PG Care Time/CCT Total # of Minutes Spent Total Time Spent with Patient: Total time spent is greater than 50% in coordination of care (as documented) at patient's floor/unit and/or counseling patient: Coding Level of Care Code 91000 Subseq Hosp Care Lvl 3 Diagnoses Abdominal pain R10.9 Abdominal location: unspecified location Hypertension I10 Hypertension type: unspecified Cyclic vomiting syndrome R11.15 Hyponatremia E87.1 Polycythemia D75.1 Tobacco use disorder F17.200 Anxiety F41.9 Gastritis K29.70 Leukocytosis D72.829 Leukocytosis type: unspecified Acute kidney injury N17.9 (1) Abdominal pain Abdominal location: unspecified location Qualified Code(s): R10.9 - Unspecified abdominal pain (2) Hypertension Hypertension type: unspecified Qualified Code(s): I10 - Essential (primary) hypertension (3) Leukocytosis Leukocytosis type: unspecified Qualified Code(s): D72.829 - Elevated white blood cell count, unspecified
[2021-12-01] MEDS ORDERED: lisinopril 20 MG TAB PO SCH ×2 (09:00)
[2021-12-01] MEDS ORDERED: FAMOTIDINE 40 MG TABLET PO SCH (09:00)
[2021-12-01 09:04] LABS: Basophils # (auto) 0.01 K/uL (0-0.2); Basophils % (auto) 0.1 %; Eosinophils # (auto) 0.03 K/uL (0-0.5); Eosinophils % (auto) 0.2 %; Hematocrit (blood only) 46.6 % (37-47); Immature Granulocytes # (auto) 0.04 K/uL (0.00-0.02); Immature Granulocytes % (auto) 0.3 %; Lymphocytes # (auto) 3.01 K/uL (1.2-3.4); Lymphocytes % (auto) 19.4 %; Mean Corpuscular Hemoglobin 29.4 pg (25-34); Mean Corpuscular Hgb Conc 34.3 g/dL (32-36); Mean Corpuscular Volume 85.7 fL (80-100); Mean Platelet Volume 11.2 fL (7.4-10.4); Monocytes # (auto) 1.22 K/uL (0.11-0.59); Monocytes % (auto) 7.9 %; Neutrophils # (auto) 11.21 K/uL (1.4-6.5); Neutrophils % (auto) 72.1 %; Platelet Count 271 K/uL (130-400); RDW Coefficient of Variation 14.8 % (11.5-14.5); RDW Standard Deviation 45.9 fL (36.4-46.3); Red Blood Count 5.44 M/uL (4.2-5.4); White Blood Count 15.52 K/uL (4.8-10.8)
[2021-12-01 09:24] LABS: Albumin Level 3.8 gm/dl (3.4-5.0); BUN Creatinine Ratio 26.5 (10-20); Bilirubin Direct 0.1 mg/dl (0-0.2); Bilirubin,Total 1.1 mg/dl (0.2-1.0); Calcium 8.7 mg/dl (8.5-10.1); Creatinine Clr Calc Pharmacy 73.9 ml/min; Est GFR (African American) 77.4 ml/min; Est GFR (Non-African American) 66.8 ml/min; Potassium 3.8 mmol/L (3.5-5.1); Total Protein 6.1 gm/dl (6.0-8.3)
[2021-12-01] MEDS: clonazePAM 0.5 MG TAB PO SCH ×2 (09:24→20:26)
[2021-12-01] MEDS: PANTOprazole 40 MG TAB PO SCH ×2 (09:25→20:24)
--- NOTE | 2021-12-01 09:36 | CT Scan Report ---
ABDOMEN AND PELVIS CT WITH IV CONTRAST CT DOSE: 976.23 mGy.cm HISTORY: Acute generalized abdominal pain with nausea abd pain TECHNIQUE: Multiaxial CT images of the abdomen and pelvis were performed following the IV administrat ion of 95 cc of Optiray, A dose lowering technique was utilized adhering to the principles of ALARA. COMPARISON STUDY: CT abdomen and pelvis 07/12/2021 FINDINGS: The imaged inferior cardiac chambers are unremarkable. Bronchial wall thickening with bibasilar atele ctasis. The spleen, mildly atrophic pancreas, adrenal glands, mildly distended gallbladder and liver appear unremarkable. There is patency of the hepatic and portal veins. Mild bilateral pelvocaliectasi s is similar to the prior study. Probable cyst of the superior pole left kidney measures 8 mm. Mild u rinary bladder wall thickening with partial distention. Uterus and adnexa are unremarkable. Atheroscl erosis of the aorta. There is no lymphadenopathy. There is no bowel obstruction or bowel wall thickening. Mild fecal retention. The appendix is not def initively seen. No secondary signs of acute appendicitis. Unremarkable soft tissues. Degenerative radha nges of the spine, pelvis and hips. IMPRESSION: 1. No acute intra-abdominal or intrapelvic abnormality. 2. No bowel obstruction or bowel wall thickening. 3. Mild bibasilar bronchial wall thickening with atelectasis. 4. Additional findings as above. ACT 112: Negative or not required by law. The above report was generated using voice recognition software. It may contain grammatical, syntax o r spelling errors. Electronically signed by: Dontrell Ellis M.D. 12/01/2021 9:34 AM
[2021-12-01] MEDS: oxyCODONE/ACETAMINOPHEN 5mg/325mg TAB PO PRN ×3 (12:30→21:00)
[2021-12-01] MEDS: DICLOFENAC SOD 1% GEL 100 GM TUBE EXT SCH ×2 (12:45→20:23)
[2021-12-01] MEDS ORDERED: hydrALAZINE HCL 20 MG/ML VIAL IV PRN (15:33)
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
[2021-12-01] MEDS: DOCUSATE SODIUM/SENNA 50/8.6MG TAB PO SCH (16:18)
[2021-12-01] MEDS: POLYETHYLENE (MIRALAX) 17 GM PACK PO SCH ×2 (16:55→20:36)
--- NOTE | 2021-12-01 18:00 | Electrocardiogram Report ---
Test Reason : Blood Pressure : / mmHG Vent. Rate : 097 BPM Atrial Rate : 097 BPM P-R Int : 136 ms QRS Dur : 086 ms QT Int : 370 ms P-R-T Axes : 056 -07 024 degrees QTc Int : 469 ms Normal sinus rhythm Possible Inferior infarct , age undetermined Abnormal ECG When compared with ECG of 29-SEP-2021 09:43, Vent. rate has increased BY 48 BPM Borderline criteria for Inferior infarct are now Present Nonspecific T wave abnormality has replaced inverted T waves in Inferior leads QT has lengthened Confirmed by Justus Jimenez ([id number]) on 12/01/2021 6:00:03 PM Referred By: REFERRED SELF Confirmed By:Jozef Jimenez
[2021-12-01] MEDS ORDERED: QUEtiapine FUMARATE 25 MG TABLET PO SCH (21:00)
[2021-12-02] MEDS: oxyCODONE/ACETAMINOPHEN 5mg/325mg TAB PO PRN ×4 (02:41→17:19)
[2021-12-02] MEDS: NICOTINE 21 MG/24 HR TDSY TD SCH (07:51)
[2021-12-02] MEDS: DICLOFENAC SOD 1% GEL 100 GM TUBE EXT SCH (07:53)
[2021-12-02] MEDS: PANTOprazole 40 MG TAB PO SCH (07:54)
[2021-12-02 08:17] LABS: Hematocrit (blood only) 42.7 % (37-47); Hemoglobin 14.5 g/dL (12.0-16.0); Mean Corpuscular Hemoglobin 29.5 pg (25-34); Mean Corpuscular Volume 86.8 fL (80-100); Mean Platelet Volume 10.5 fL (7.4-10.4); Platelet Count 204 K/uL (130-400); RDW Coefficient of Variation 14.8 % (11.5-14.5); RDW Standard Deviation 47.2 fL (36.4-46.3); Red Blood Count 4.92 M/uL (4.2-5.4); White Blood Count 8.93 K/uL (4.8-10.8)
--- NOTE | 2021-12-02 08:58 | Gastroenterology Progress Note ---
Date of Service December 02, 2021 Assessment & Plan (1) Nausea and vomiting: Plan: Nausea and vomiting--chronic. continue supportive care measures as directed by hospitalist abdominal pain--chronic. continue supportive care measures as directed by hospitalist. EGD and colo today hx of colon thickening on CT--EGD and colonoscopy planned for today. Procedures and risks explained to patient which include but not limited to medication reaction, bleeding, perforation, aspiration, and missed lesions. If negative for etiology then most likely cyclic vomiting syndrome and consider Keppra which has been used in this condition. Case reviewed with Dr. Bradford. Please refer to supervising physician addendum for further recommendations. I have spent 20 minutes of discrete time performing the activities of this visit which include but are not limited to review of the medical record, obtaining a history, physical exam, and entering information in the electronic record. (2) Abdominal pain: (3) Abnormal CT scan, colon: Admission and Anticipated Discharge Date Admission Date: November 30, 2021 Supervising Physician Co-Signing Physician Notes I have seen and examined the patient. I agree with note above by JIMMIE Lambert except as noted below. HPI Pt states prep worked well. Mild abd pain at present. PE Abdomen pos bs, soft, no guarding nor rebound. A/P n/v thickened TC on CT 05/2021 esophagitsi EGD and colonoscopy today. Procedures and risks explained to patient which include but not limited to medication reaction, bleeding, perforation, aspiration, and missed lesions. As the supervising physician, I , Joshua Bradford MD have spent 11 minutes of discrete time performing the activities of this visit which include but not limited to review of the medical records, obtaining a history, physical exam and entering information in the electronic record. JIMMIE Lambert has reported spending 20 minutes of discrete time with the activities of this visit. Subjective The patient is awake alert and oriented this morning. She is sitting at her bed side. Reports she had a some abdominal cramping which she was recently medicated for by nursing. She has a wet cough noted. This is chronic. She reports intermittent nausea but no current vomiting. Reports last bowel movement this morning. She is tolerating colonoscopy prep well. She reports stool output is clear liquid at this time. She also reports that her lower dentures were lost during the emergency department this has been reported via hospital protocol. Review of Systems Review of Systems: All systems reviewed & are unremarkable except as noted in Subjective Physical Exam Constitutional: WD/WN, vitals as above ENMT: Ears: no hearing impairment Nose: no external nose abnormality Neck: normal visual inspection and trachea midline Respiratory: normal respiratory effort, lungs clear to auscultation Cardiovascular: RRR, no murmur, no edema Gastrointestinal (Abdomen): normal bowel sounds, soft, nontender, no hepatosplenomegaly Results & Data ([facility]) Vital Signs (Past 12 Hours) Vital Signs Temp Pulse Pulse Resp BP BP Pulse Ox 12/02/21 07:30 36.6 C 85 20 173/99 H 97 12/01/21 22:53 37.0 C 80 18 139/89 96 Laboratory Results Laboratory Results - last 24 hr 12/01/21 12/01/21 12/01/21 07:54 07:54 08:25 WBC 15.52 H RBC 5.44 H Hgb 16.0 Hct 46.6 MCV 85.7 MCH 29.4 MCHC 34.3 RDW Std Deviation 45.9 RDW Coeff of Bo 14.8 H Plt Count 271 MPV 11.2 H Immature Gran % (Auto) 0.3 Neut % (Auto) 72.1 Lymph % (Auto) 19.4 [place] % (Auto) 7.9 Eos % (Auto) 0.2 Baso % (Auto) 0.1 Neut # (Auto) 11.21 H Lymph # (Auto) 3.01 [place] # (Auto) 1.22 H Eos # (Auto) 0.03 Baso # (Auto) 0.01 Immature Gran # (Auto) 0.04 H Sodium 132 L Potassium 3.8 Chloride 97 L Carbon Dioxide 25 Anion Gap 10 BUN 26 H Creatinine 0.98 D Est Cr Clr Drug Dosing 73.9 Est GFR ( Amer) 77.4 Est GFR (Non-Af Amer) 66.8 BUN/Creatinine Ratio 26.5 H Glucose 119 H Calcium 8.7 D Magnesium Total Bilirubin 1.1 H Direct Bilirubin 0.1 AST 22 ALT 16 Alkaline Phosphatase 36 Total Protein 6.1 D Albumin 3.8 Procalcitonin TSH 3.546 ACTH Hepatitis A IgM Ab Hep Bs Antigen Hep Bs Ag Confirmation Hep B Core IgM Ab Hepatitis C Ab (EIA) Hep C Ab Signal/Cutoff 12/01/21 12/02/21 12/02/21 08:25 07:58 07:58 WBC 8.93 RBC 4.92 Hgb 14.5 Hct 42.7 MCV 86.8 MCH 29.5 MCHC 34.0 RDW Std Deviation 47.2 H RDW Coeff of Bo 14.8 H Plt Count 204 MPV 10.5 H Immature Gran % (Auto) Neut % (Auto) Lymph % (Auto) [place] % (Auto) Eos % (Auto) Baso % (Auto) Neut # (Auto) Lymph # (Auto) [place] # (Auto) Eos # (Auto) Baso # (Auto) Immature Gran # (Auto) Sodium Pending Potassium Pending Chloride Pending Carbon Dioxide Pending Anion Gap Pending BUN Pending Creatinine Pending Est Cr Clr Drug Dosing Pending Est GFR ( Amer) Pending Est GFR (Non-Af Amer) Pending BUN/Creatinine Ratio Pending Glucose Pending Calcium Pending Magnesium Pending Total Bilirubin Direct Bilirubin AST ALT Alkaline Phosphatase Total Protein Albumin Procalcitonin 0.06 TSH ACTH Hepatitis A IgM Ab Hep Bs Antigen Hep Bs Ag Confirmation Hep B Core IgM Ab Hepatitis C Ab (EIA) Hep C Ab Signal/Cutoff 12/02/21 07:58 WBC RBC Hgb Hct MCV MCH MCHC RDW Std Deviation RDW Coeff of Bo Plt Count MPV Immature Gran % (Auto) Neut % (Auto) Lymph % (Auto) [place] % (Auto) Eos % (Auto) Baso % (Auto) Neut # (Auto) Lymph # (Auto) [place] # (Auto) Eos # (Auto) Baso # (Auto) Immature Gran # (Auto) Sodium Potassium Chloride Carbon Dioxide Anion Gap BUN Creatinine Est Cr Clr Drug Dosing Est GFR ( Amer) Est GFR (Non-Af Amer) BUN/Creatinine Ratio Glucose Calcium Magnesium Total Bilirubin Direct Bilirubin AST ALT Alkaline Phosphatase Total Protein Albumin Procalcitonin TSH ACTH Pending Hepatitis A IgM Ab Pending Hep Bs Antigen Pending Hep Bs Ag Confirmation Pending Hep B Core IgM Ab Pending Hepatitis C Ab (EIA) Pending Hep C Ab Signal/Cutoff Pending Diagnostic Findings Abdomen/Pelvis CT 11/30/21 20:[address] WITH IV CONTRAST CT DOSE: 976.23 mGy.cm HISTORY: Acute generalized abdominal pain with nausea abd pain TECHNIQUE: Multiaxial CT images of the abdomen and pelvis were performed following the IV administration of 95 cc of Optiray, A dose lowering technique was utilized adhering to the principles of ALARA. COMPARISON STUDY: CT abdomen and pelvis 07/12/2021 FINDINGS: The imaged inferior cardiac chambers are unremarkable. Bronchial wall thickening with bibasilar atelectasis. The spleen, mildly atrophic pancreas, adrenal glands, mildly distended gallbladder and liver appear unremarkable. There is patency of the hepatic and portal veins. Mild bilateral pelvocaliectasis is similar to the prior study. Probable cyst of the superior pole left kidney measures 8 mm. Mild urinary bladder wall thickening with partial distention. Uterus and adnexa are unremarkable. Atherosclerosis of the aorta. There is no lymphadenopathy. There is no bowel obstruction or bowel wall thickening. Mild fecal retention. The appendix is not definitively seen. No secondary signs of acute appendicitis. Unremarkable soft tissues. Degenerative changes of the spine, pelvis and hips. IMPRESSION: 1. No acute intra-abdominal or intrapelvic abnormality. 2. No bowel obstruction or bowel wall thickening. 3. Mild bibasilar bronchial wall thickening with atelectasis. 4. Additional findings as above. ACT 112: Negative or not required by law. The above report was generated using voice recognition software. It may contain grammatical, syntax or spelling errors. Electronically signed by: Dontrell Ellis M.D. 12/01/2021 9:34 AM (1) Abdominal pain Abdominal location: unspecified location Qualified Code(s): R10.9 - Unspecified abdominal pain
[2021-12-02] MEDS ORDERED: LACTATED RINGER'S 1,000 ML IV SCH (09:00)
--- NOTE | 2021-12-02 09:02 | Hospitalist Progress Note ---
Date of Service December 02, 2021 Assessment & Plan (1) Abdominal pain: Plan: 51yo female presenting with intractable nausea, dry heaving, abdominal pain and PO intolerance. Symptoms have been ongoing x 5 days. Patient hypertensive, otherwise hemodynamically stable but uncomfortable appearing on admission Prior admissions felt related to cyclic vomiting syndrome, however patient denies marijuana use since August making this less likely. Does have history of Crohns but not on any medications for such. -- Also endorses hx Hep C 2nd to tattoos, tx 10 years ago. Also, did have c-scope last admission in July with Dr Bradford, which did show inflammation/irritation and was to be on PPI BID, carafate. She states she has been compliant with this, and protonix was added back to home medication list and increased to BID while inpatient WBC elevation likely 2nd to n/v on admission. Now wnl CT A/P without acute pathology. Does show some GB thickening. Patient denies any relation to food regarding pain but will check RUQ US for completeness GI consulted as was to have c-scope recently but cancelled due to weather. Of note, they did sent out porphyrin labs last admission, some elevations.?if contributing. defer to GI for interpretation ("She had urine for PBG and total porphyrins done 05/2021 and [id number] with PBG normal both times and max total porphyrins below the 1000 seen with acute intermittent porphyria. AM cortisol in the past has been negative.") Continue IVF NPO for EGD/c-scope today with Dr Bradford Antiemetics, pain control prn Topical capsaicin as needed (states has been months since marijuana use) Lipase LOW, ?pancreatic insufficiency, ?benefit from adding/trial of Creon? If egd/c-scope unrevealing, trial Keppra for cyclic vomiting may be appropriate (2) Acute kidney injury: Plan: Cr 1.4 on admission, baseline ~1, likely secondary to poor PO intake/n/v IVF as above Cr at baseline Monitor (3) Hypertension: Plan: elevated 2nd to pain Lisinopril held given dehydrated on exam/not much PO intake over past 4-5 days per patient IVF as above Hydralazine ordered prn HTN BP currently 135/88 Continue to monitor ACTH pending (4) Cyclic vomiting syndrome: Plan: As above. Suspected as cause, however patient reports no recent use Antiemetics prn as above, supportive care Keppra if negative endoscopies as above Avoidance of marijuana at discharge encouraged. Son has MMJ card, has admitted to using "waxes" in the past for nausea (5) Gastritis: Plan: Patient with epigastric discomfort, given GI cocktail x 1. Relief compared to ye . Denies etoh use, NSAIDs Pepcid 40mg po daily --> Discontinued, placed on protonix BID given prior EGD results and to be on PPI BID Continue carafate prn Continue PPI BID PO at d/c pending EGD (6) Hyponatremia: Plan: Qz=470. Patient with chronic mild hyponatremia with Na 133 during the last several checks. TSH wnl Received multiple L IVF, Na now 138 wnl D/c after endo to see about keeping up with oral intake/maintain hydration status BMP in AM (7) Polycythemia: Plan: Elevated H/H at 18.9 and 51.9. Most likely secondary to prolonged tobacco use - 1ppd for as long as patient can remember, marijuana use. Patient had DOC-2 mutation sent 07/14/21 presumably for workup of polycythemia vera which was NOT DETECTED. Encouraged smoking cessation IVF as above, repeat cbc wnl and suspect hemoconcentrated from dehydration on admission as well ? rec f/u heme/onc at discharge (8) Tobacco use disorder: Plan: -Nicotine patch ordered -Smoking cessation counseling (9) Anxiety: Plan: Controlled per patient, although does seem anxious about ongoing issues -Continue home Clonazepam 0.5mg po BID -Seroquel 50mg po qHS (10) Leukocytosis: Plan: suspect 2nd to n/v as above monitor in AM as not on abx and WBC 21--> now wnl without Afebrile UA contaminated CXR without pneumonia (11) Hepatitis: Plan: history of hepatitis, states received treatment about ten years ago LFTs wnl Plan: Ppx - ambulation encouraged, scds/lilian diaz NPO for EGD/c-scope this afternoon with Dr Suzette Rojas d/c tomorrow morning Admission and Anticipated Discharge Date Admission Date: November 30, 2021 Subjective Patient evaluated this morning. Feeling better. NPO for c-scope and EGD today. Discussed diet following, if negative studies can consider related to cyclic vomiting. She continues to endorse abstinence but does admit to having used waxes in the past. Discussed high concentrations and still could be related and if negative imaging would avoid staying away from continuous churn buttermaker. Denies any help w the capsaicin cream. Discussed could trial [place] as well, patient agreeable. Will see how endoscopy goes and ability to tolerate/keep up with oral intake prior to discharge. She is hopeful for discharge tomorrow morning as soon as possible. Discussed I am on service again tomorrow and if things moving in right direction will get discharged by noon tomorrow. No fever, chills, chest pain. Cough but not shortness of breath, chronic. Slight tenderness to epigastric region, occasional nausea but no vomiting and overall states she feels much improved. Questions/concerns addressed at this time. Review of Systems Review of Systems: All systems reviewed & are unremarkable except as noted in HPI & below Physical Exam Physical Exam: General: WD/WN female, elderly appearing female sitting up at side of bed, no acute distress, putting on lilian hose HEENT: mmm, trachea midline without deviation, Resp: CTAB, prolonged expiratory phase and diminished at the bases, on room air, no distress CV: RRR, no m/r/g, no edema GI: +BS, soft, mild tenderness to palpation epigastric region, voluntary guarding, no rebound Neuro/Psych: CN intact grossly, follows commands, no facial droop/slurred speech, strength equal bilaterally Psych: AOx3, pleasant and cooperative Skin: warm dry Results & Data Results & Data ([facility]) Vital Signs (Past 12 Hours) Vital Signs Temp Pulse Pulse Resp BP BP Pulse Ox 12/02/21 07:30 36.6 C 85 20 173/99 H 97 12/01/21 22:53 37.0 C 80 18 139/89 96 Laboratory Results 12/02/21 12/02/21 12/02/21 Range/Units 07:58 07:58 07:58 WBC 8.93 (4.8-10.8) K/uL RBC 4.92 (4.2-5.4) M/uL Hgb 14.5 (12.0-16.0) g/dL Hct 42.7 (37-47) % MCV 86.8 (80-100) fL MCH 29.5 (25-34) pg MCHC 34.0 (32-36) g/dL RDW Std Deviation 47.2 H (36.4-46.3) fL RDW Coeff of Bo 14.8 H (11.5-14.5) % Plt Count 204 (130-400) K/uL MPV 10.5 H (7.4-10.4) fL Sodium 138 (136-145) mmol/L Potassium 3.9 (3.5-5.1) mmol/L Chloride 104 (98-107) mmol/L Carbon Dioxide 28 (21-32) mmol/L Anion Gap 6 (3-11) BUN 20 (6-23) mg/dl Creatinine 0.96 (0.6-1.2) mg/dl Est Cr Clr Drug Dosing 75.4 ml/min Est GFR ( Amer) 79.4 ml/min Est GFR (Non-Af Amer) 68.5 ml/min BUN/Creatinine Ratio 20.8 H (10-20) Glucose 85 (70-99(Fasting)) mg/dl Calcium 9.0 (8.5-10.1) mg/dl Magnesium 2.0 (1.7-2.4) mg/dl ACTH Pending Hepatitis A IgM Ab Pending Hep Bs Antigen Pending Hep Bs Ag Confirmation Pending Hep B Core IgM Ab Pending Hepatitis C Ab (EIA) Pending Hep C Ab Signal/Cutoff Pending Diagnostic Findings Abdomen/Pelvis CT 11/30/21 20:[address] WITH IV CONTRAST CT DOSE: 976.23 mGy.cm HISTORY: Acute generalized abdominal pain with nausea abd pain TECHNIQUE: Multiaxial CT images of the abdomen and pelvis were performed following the IV administration of 95 cc of Optiray, A dose lowering technique was utilized adhering to the principles of ALARA. COMPARISON STUDY: CT abdomen and pelvis 07/12/2021 FINDINGS: The imaged inferior cardiac chambers are unremarkable. Bronchial wall thickening with bibasilar atelectasis. The spleen, mildly atrophic pancreas, adrenal glands, mildly distended gallbladder and liver appear unremarkable. There is patency of the hepatic and portal veins. Mild bilateral pelvocaliectasis is similar to the prior study. Probable cyst of the superior pole left kidney measures 8 mm. Mild urinary bladder wall thickening with partial distention. Uterus and adnexa are unremarkable. Atherosclerosis of the aorta. There is no lymphadenopathy. There is no bowel obstruction or bowel wall thickening. Mild fecal retention. The appendix is not definitively seen. No secondary signs of acute appendicitis. Unremarkable soft tissues. Degenerative changes of the spine, pelvis and hips. IMPRESSION: 1. No acute intra-abdominal or intrapelvic abnormality. 2. No bowel obstruction or bowel wall thickening. 3. Mild bibasilar bronchial wall thickening with atelectasis. 4. Additional findings as above. ACT 112: Negative or not required by law. The above report was generated using voice recognition software. It may contain grammatical, syntax or spelling errors. Electronically signed by: Dontrell Ellis M.D. 12/01/2021 9:34 AM PG Care Time/CCT Total # of Minutes Spent Total Time Spent with Patient: Total time spent is greater than 50% in coordination of care (as documented) at patient's floor/unit and/or counseling patient: Coding Level of Care Code 81487 Subseq Hosp Care Lvl 3 Diagnoses Abdominal pain R10.9 Abdominal location: unspecified location Acute kidney injury N17.9 Hypertension I10 Hypertension type: unspecified Cyclic vomiting syndrome R11.15 Gastritis K29.70 Hyponatremia E87.1 Polycythemia D75.1 Tobacco use disorder F17.200 Anxiety F41.9 Leukocytosis D72.829 Leukocytosis type: unspecified Hepatitis K75.9 (1) Abdominal pain Abdominal location: unspecified location Qualified Code(s): R10.9 - Unspecified abdominal pain (2) Hypertension Hypertension type: unspecified Qualified Code(s): I10 - Essential (primary) hypertension (3) Leukocytosis Leukocytosis type: unspecified Qualified Code(s): D72.829 - Elevated white blood cell count, unspecified
[2021-12-02 09:05] LABS: BUN Creatinine Ratio 20.8 (10-20); Creatinine Clr Calc Pharmacy 75.4 ml/min; Est GFR (African American) 79.4 ml/min; Est GFR (Non-African American) 68.5 ml/min; Potassium 3.9 mmol/L (3.5-5.1)
[2021-12-02] MEDS: clonazePAM 0.5 MG TAB PO SCH (09:38)
[2021-12-02] MEDS: DOCUSATE SODIUM/SENNA 50/8.6MG TAB PO SCH (12:07)
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
[2021-12-02 14:41] VITALS: TEMP 98.4
[2021-12-02] MEDS ORDERED: LIDOCAINE 2% 2 ML VIAL/AMP(20MG/ML) INFIL ONE (14:54)
[2021-12-02] MEDS ORDERED: PROPOFOL IV EMULSION 10 MG/ML 20 ML VIAL IV ONE (14:54)
[2021-12-02] MEDS ORDERED: MIDAZOLAM HCL 1 MG/ML 2ML VIAL ONE (14:54)
--- NOTE | 2021-12-02 15:40 | Anesthesiology Progress Note ---
Date of Service December 02, 2021 Anesthesia Post Procedure Vital Signs Vital Signs: Temp Pulse Pulse Resp BP BP Pulse Ox 12/02/21 14:33 36.9 C 57 L 16 151/90 H 99 12/02/21 10:38 64 16 135/88 96 12/02/21 07:30 36.6 C 85 20 173/99 H 97 12/01/21 22:53 37.0 C 80 18 139/89 96 Pain Intensity Abdomen: Pain Intensity: 6 Transfer of Care Handoff Completed per policy Notes Mental Status: alert / awake / arousable and participated in evaluation Patient Amnestic to Procedure: Yes Nausea / Vomiting: adequately controlled Pain: adequately controlled Airway Patency, RR, SpO2: stable & adequate BP & HR: stable & adequate Hydration State: stable & adequate Anesthetic Complications: no major complications apparent and Pt Satisfied with anesthetic care
--- NOTE | 2021-12-02 15:41 | GI REPORT ---
Patient Name: Charleen Mathis Procedure Date: 12/02/2021 3:00 PM Date of : 1970 Admit Type: Inpatient Age: 51 Gender: Female Attending MD: Joshua Bradford MD Procedure: Upper GI endoscopy Providers: Joshua Bradford MD Referring MD: Isak Gayle M.d. Indications: Abdominal pain, Nausea with vomiting Medicines: Monitored Anesthesia Care Complications: No immediate complications. Estimated blood loss: Minimal. Estimated Blood Loss: Estimated blood loss was minimal. Procedure: Pre-Anesthesia Assessment: - The risks and benefits of the procedure and the sedation options and risks were discussed with the patient. All questions were answered and informed consent was obtained. After obtaining informed consent, the endoscope was passed under direct vision. Throughout the procedure, the patient's blood pressure, pulse, and oxygen saturations were monitored continuously. The Endoscope was introduced through the mouth, and advanced to the second part of duodenum. The upper GI endoscopy was accomplished without difficulty. The patient tolerated the procedure well. Procedure and risks explained to patient which include but not limited to medication reaction, bleeding, perforation, aspiration , and missed lesions. Judicious gas insufflation was used and gas removal done on the way out. The lumen was always visualized when advancing the scope. Prep was good. Washes and suctioning used as needed to get good visualization of the mucosa. Retroflexion to look at the fundus and cardia of the stomach and GE junction was done. Findings: The Z-line was regular and was found 35 cm from the incisors. A 3 cm hiatal hernia was present. The gastric antrum was normal. Biopsies were taken with a cold forceps for Helicobacter pylori testing. Estimated blood loss was minimal. The second portion of the duodenum was normal. Biopsies for histology were taken with a cold forceps for evaluation of celiac disease. Estimated blood loss was minimal. Multiple diffuse, 3 to 7 mm erosions were found in the junction of the first and 2nd portion of the duodenum. Biopsies were taken with a cold forceps for histology. Estimated blood loss was minimal. The exam was otherwise without abnormality. Impression: - Z-line regular, 35 cm from the incisors. - 3 cm hiatal hernia. - Normal antrum. Biopsied. - Normal second portion of the duodenum. Biopsied. - Erosive duodenopathy. Biopsied. - The examination was otherwise normal. Recommendation: - Discharge patient to home (ambulatory). - Patient has a contact number available for emergencies. The signs and symptoms of potential delayed complications were discussed with the patient. Return to normal activities tomorrow. Written discharge instructions were provided to the patient. - Continue Protonix bid. Add Sucralfate 4 times daily. Stop smoking. Avoid NSAIDS and ASA. Tylenol is ok. - Check fasting am gastrin. Joshua Bradford M.D. Joshua Bradford MD 12/02/2021 3:41:35 PM This report has been signed electronically. Note Initiated On: 12/02/2021 3:00 PM Number of Addenda: 0 I attest to the content of the Intraoperative Record and orders documented therein, exceptions below {[id number]}
--- NOTE | 2021-12-02 15:47 | GI REPORT ---
Patient Name: Charleen Mathis Procedure Date: 12/02/2021 2:58 PM Date of : 1970 Admit Type: Inpatient Age: 51 Gender: Female Attending MD: Joshua Bradford MD Procedure: Colonoscopy Providers: Joshua Bradford MD Referring MD: Isak Gayle M.d. Indications: Abdominal pain, Abnormal CT of the GI tract---thickened transverse colon on CT 05/2021. Medicines: Monitored Anesthesia Care Complications: No immediate complications. Estimated blood loss: Minimal. Estimated Blood Loss: Estimated blood loss: none. Procedure: Pre-Anesthesia Assessment: - The risks and benefits of the procedure and the sedation options and risks were discussed with the patient. All questions were answered and informed consent was obtained. After I obtained informed consent, the scope was passed under direct vision. Throughout the procedure, the patient's blood pressure, pulse, and oxygen saturations were monitored continuously. The scope was introduced through the anus and advanced to the cecum, identified by appendiceal orifice and ileocecal valve. The colonoscopy was performed without difficulty. The patient tolerated the procedure well. Procedure and risks explained to patient which include but not limited to med reaction, bleeding, perforation, aspiration and missed lesions. Judicious gas insufflation and gas removal done on the way out. The lumen always well visualized when advancing the scope. Washes and suctioning used as needed. Prep was poor in places with stool that could not be removed. Retroflexion in the rectum to look at the distal rectum and anal canal done. Findings: A moderate amount of stool was found in the entire colon, interfering with visualization. Lavage of the area was performed, resulting in incomplete clearance with fair visualization. The exam was otherwise without abnormality on direct and retroflexion views. Impression: - Stool scattered throughout colon that could not be removed. - The examination was otherwise normal on direct and retroflexion views. - No specimens collected. Recommendation: - Discharge patient to home (ambulatory). - [facility] care. - Pt had Miralax prep in inpatient setting. She will need more vigorous prep with repeat colonoscopy as outpt. Joshua Bradford M.D. Joshua Bradford MD 12/02/2021 3:46:44 PM This report has been signed electronically. Note Initiated On: 12/02/2021 2:58 PM Number of Addenda: 0 I attest to the content of the Intraoperative Record and orders documented therein, exceptions below {[id number]}
[2021-12-02 16:08] VITALS: PULSE 51; O2SAT 100
[2021-12-02] MEDS ORDERED: SUCRALFATE 1 GM TAB PO SCH (17:00)
--- NOTE | 2021-12-02 17:20 | Ultrasound Report ---
ABDOMINAL ULTRASOUND, RIGHT UPPER QUADRANT HISTORY: epigastric pain, gallbladder thickening on CT. COMPARISON: Abdomen and pelvis CT 11/30/2021 FINDINGS: Pancreas: The pancreas demonstrates a normal echotexture. Liver: Unremarkable. Gallbladder: No gallbladder wall thickening. No gallstones. A small amount of gallbladder sludge. CBD: 6 mm. Right kidney: No hydronephrosis. IMPRESSION: 1. Small amount of gallbladder sludge. No gallbladder wall thickening or gallstones. 2. Normal caliber common bile duct. ACT 112: Negative or not required by law. Electronically signed by: Venkat Ramires M.D. 12/02/2021 5:18 PM
--- NOTE | 2021-12-02 18:15 | Discharge Summary ---
Date of Service December 02, 2021 Admission HPI Per Admitting Provider Charleen Mathis is a 51yo female with history of HTN, Anxiety, HCV s/p treatment, secondary polycythemia and cyclic vomiting syndrome. She presents today with 5 days of persistent nausea, vomiting, PO intolerance and diffuse abdominal pain. Patient with longstanding history of similar symptoms. States that she has had intermittent nausea for the last 8-9 years. She gets severe episodes like this every couple of months. Most recently admitted to [facility] 09/29/21 - 10/02/21 with similar presentation. She has nausea with dry heaving. No bloody or bilious vomiting. Has not eaten for several days. Diffuse intermittent abdominal cramping and epigastric discomfort. She denies chest pain, palpitations, cough, SOB, fever, chills, diarrhea. She is passing gas. Patient has received Zofran, Reglan, Promethazine in the ER with minimal relief. Reports she has not smoked marijuana in over 1 month She follows with [facility]. No additional complaints at this time. ER Course: NSS x 4 liters, Promethazine 25mg IV, Reglan 10mg IV, Zofran 4mg IV Admission Exam Per Admitting Provider Chief Complaint: nausea, vomiting, abdominal pain Primary Care Provider: Miky Aquino DO Charleen Mathis is a 51yo female with history of HTN, Anxiety, HCV s/p treatment, secondary polycythemia and cyclic vomiting syndrome. She presents today with 5 days of persistent nausea, vomiting, PO intolerance and diffuse abdominal pain. Patient with longstanding history of similar symptoms. States that she has had intermittent nausea for the last 8-9 years. She gets severe episodes like this every couple of months. Most recently admitted to [facility] 09/29/21 - 10/02/21 with similar presentation. She has nausea with dry heaving. No bloody or bilious vomiting. Has not eaten for several days. Diffuse intermittent abdominal cramping and epigastric discomfort. She denies chest pain, palpitations, cough, SOB, fever, chills, diarrhea. She is passing gas. Patient has received Zofran, Reglan, Promethazine in the ER with minimal relief. Reports she has not smoked marijuana in over 1 month She follows with [facility]. No additional complaints at this time. ER Course: NSS x 4 liters, Promethazine 25mg IV, Reglan 10mg IV, Zofran 4mg IV Principal Diagnosis Abdominal Pain, Nausea, Vomiting, Cyclic Vomiting Discharge Exam General: WD/WN female, elderly appearing female sitting up at side of bed, no acute distress, putting on lilian hose HEENT: mmm, trachea midline without deviation, Resp: CTAB, prolonged expiratory phase and diminished at the bases, on room air, no distress CV: RRR, no m/r/g, no edema GI: +BS, soft, mild tenderness to palpation epigastric region,no guarding, no rebound, negative ferreira Neuro/Psych: CN intact grossly, follows commands, no facial droop/slurred speech, strength equal bilaterally Psych: AOx3, pleasant and cooperative Skin: warm dry Discharge Data Allergies Allergy/AdvReac Type Severity Reaction Status Date / Time codeine AdvReac Intermediate GI SYMPTOMS Verified 12/02/21 14:29 morphine AdvReac Intermediate N/V Verified 12/02/21 14:29 tramadol AdvReac Intermediate GI SYMPTOMS Verified 12/02/21 14:29 Consultations 11/30/21 23:28 ED Decision to Admit Stat 12/01/21 08:18 Consult Gastroenterology Routine 12/02/21 17:54 Consult [facility] service tech Routine Procedures Performed Operation Date: 12/02/21 16:30 Actual Procedures p EGD Biopsy Cytology - Joshua Bradford s Colonoscopy - Joshua Bradford Ordered Studies Abdomen/Pelvis CT 11/30/21 20:[address] WITH IV CONTRAST CT DOSE: 976.23 mGy.cm HISTORY: Acute generalized abdominal pain with nausea abd pain TECHNIQUE: Multiaxial CT images of the abdomen and pelvis were performed following the IV administration of 95 cc of Optiray, A dose lowering technique was utilized adhering to the principles of ALARA. COMPARISON STUDY: CT abdomen and pelvis 07/12/2021 FINDINGS: The imaged inferior cardiac chambers are unremarkable. Bronchial wall thickening with bibasilar atelectasis. The spleen, mildly atrophic pancreas, adrenal glands, mildly distended gallbladder and liver appear unremarkable. There is patency of the hepatic and portal veins. Mild bilateral pelvocaliectasis is similar to the prior study. Probable cyst of the superior pole left kidney measu res 8 mm. Mild urinary bladder wall thickening with partial distention. Uterus and adnexa are unremarkable. Atherosclerosis of the aorta. There is no lymphadenopathy. There is no bowel obstruction or bowel wall thickening. Mild fecal retention. The appendix is not definitively seen. No secondary signs of acute appendicitis. Unremarkable soft tissues. Degenerative changes of the spine, pelvis and hips. IMPRESSION: 1. No acute intra-abdominal or intrapelvic abnormality. 2. No bowel obstruction or bowel wall thickening. 3. Mild bibasilar bronchial wall thickening with atelectasis. 4. Additional findings as above. ACT 112: Negative or not required by law. The above report was generated using voice recognition software. It may contain grammatical, syntax or spelling errors. Electronically signed by: Dontrell Ellis M.D. 12/01/2021 9:34 AM Liver Ultrasound 12/02/21 11:08 ABDOMINAL ULTRASOUND, RIGHT UPPER QUADRANT HISTORY: epigastric pain, gallbladder thickening on CT. COMPARISON: Abdomen and pelvis CT 11/30/2021 FINDINGS: Pancreas: The pancreas demonstrates a normal echotexture. Liver: Unremarkable. Gallbladder: No gallbladder wall thickening. No gallstones. A small amount of gallbladder sludge. CBD: 6 mm. Right kidney: No hydronephrosis. IMPRESSION: 1. Small amount of gallbladder sludge. No gallbladder wall thickening or gallstones. 2. Normal caliber common bile duct. ACT 112: Negative or not required by law. Electronically signed by: Venkat Ramires M.D. 12/02/2021 5:18 PM Hospital Course (1) Abdominal pain: 51yo female presenting with intractable nausea, dry heaving, abdominal pain and PO intolerance. Symptoms have been ongoing x 5 days. Patient hypertensive, otherwise hemodynamically stable but uncomfortable appearing on admission Prior admissions felt related to cyclic vomiting syndrome, however patient denies marijuana use since August making this less likely. Does have history of Crohns but not on any medications for such. -- Also endorses hx Hep C 2nd to tattoos, tx 10 years ago. Also, did have c-scope last admission in July with Dr Bradford, which did show inflammation/irritation and was to be on PPI BID, carafate. She states she has been compliant with this, and protonix was added back to home medication list and increased to BID while inpatient WBC elevation likely 2nd to n/v on admission along with GEORGINA. Now wnl CT A/P without acute pathology. Does show some GB thickening. Patient denies any relation to food regarding pain but will check RUQ US for completeness GI consulted as was to have c-scope recently but cancelled due to weather. Of note, they did sent out porphyrin labs last admission, some elevations.?if contributing. defer to GI for interpretation ("She had urine for PBG and total porphyrins done 05/2021 and [id number] with PBG normal both times and max total porphyrins below the 1000 seen with acute intermittent porphyria. AM cortisol in the past has been negative.") s/p C-scope -- poor prep, need repeat outpatient EGD erosive duodenopathy -- to continue PPI BID and Carafate increased to QID. New rxs provided. Also sent short course pain medication and zofran to use as needed Path sent for H. Pylori Of note, lipase had been low on admission. No further n/v and tolerating diet without issue but could try Creon in future for ?possible underlying pancreatic insufficiency (does have hx hep C ~ 10 yrs ago reportedly from tattoos, no hx IVDU or blood transfusions) CT imaging did note atrophic pancreas TB 1.1 on admit likely 2nd to n/v. AST/ALT/ALP wnl. Did not endorse worsening pain after any specific meal, but did check RUQ US given GB mildly distended on CT on admit (not new finding) -> RUQ with sludge but no edema/fluid/stones noted. --> Consideration for Questran in future but recommend trial low fat diet to see if symptoms controlled and can have outpatient referral to general surgery for consideration for elective CCY Encouraged cessation/abstinence from marijuana. Not wanting to start new medication at this time but discussed Keppra and she is to discuss with PCP. 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 To call on Sunday to assist Reports topical capcasin ineffective Offered to keep patient numerous times overnight to monitor status with advancement of diet. She wanted to go home and follow up outpatient and had been eating/drinking without recurrence of issue. Recommended adhering to low fat diet at discharge as above. If symptoms controlled with such, further evidence may benefit from CCY in the future on elective basis. (2) Acute kidney injury: Cr 1.4 on admission, baseline ~1, likely secondary to poor PO intake/n/v IVF as above provided and repeat Cr at baseline. (3) Hypertension: elevated 2nd to pain Lisinopril held given dehydrated on exam/not much PO intake over past 4-5 days per patient IVF as above, hydralazine prn if needed ACTH pending at discharge F/u PCP' Resume lisinopril at discharge (4) Cyclic vomiting syndrome: As above. Suspected as cause, however patient reports no recent use Antiemetics prn as above, supportive care Keppra if negative endoscopies as above can be started on outpatient basis Avoidance of marijuana at discharge encouraged. Son has MMJ card, has admitted to using "waxes" in the past for nausea (5) Gastritis: Patient with epigastric discomfort, given GI cocktail x 1. Relief compared to yesterday. Denies etoh use, NSAIDs --> Discontinued, placed on protonix BID given prior EGD results and to be on PPI BID Continue carafate prn Continue PPI BID PO and new rx sent Carafate QID SCHEDULED --> Encouraged avoidance of smoking as well Path sent from EGD for H.pylori (6) Hyponatremia: Low on admit, patient with chronic mild hyponatremia with Na 133 during the last several checks. TSH wnl IVF provided Repeat BMP with Na wnl (7) Polycythemia: Elevated H/H at 18.9 and 51.9. Most likely secondary to prolonged tobacco use - 1ppd for as long as patient can remember, marijuana use. Patient had DOC-2 mutation sent 07/14/21 presumably for workup of polycythemia vera which was NOT DETECTED. Encouraged smoking cessation IVF as above, repeat cbc wnl and suspect hemoconcentrated from dehydration on admission as well ? rec f/u heme/onc at discretion of PCP (8) Tobacco use disorder: -Nicotine patch ordered -Smoking cessation counseling (9) Anxiety: Controlled per patient, although does seem anxious about ongoing issues -Continued home Clonazepam 0.5mg po BID -Seroquel 50mg po qHS (10) Leukocytosis: suspect 2nd to n/v as above monitor in AM as not on abx and WBC 21--> now wnl without abx Afebrile UA contaminated CXR without pneumonia (11) Hepatitis: history of hepatitis, states received treatment about ten years ago LFTs wnl Hepatitis panel pending at time of discharge Total Time Total Time Spent Total Time Spent (In Minutes): 50 Discharge Plan Discharge Items Patient Disposition: Home - Self-Care Reason For Visit: NAUSEA, VOMITING, ABDOMINAL PAIN Discharge Diagnosis: Cyclic Vomiting, Erosive Duodenopathy Goals: You have been hospitalized for an acute medical problem. During your stay at [facility], we have made an effort to correct the problem that brought you to the hospital while keeping you as comfortable as possible. Medications were used to bring your condition under control and your discharge instructions will include directions for any medications you should take after leaving the hospital. Please make sure you see your Primary Care Provider as part of your follow up plan. 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 This could be from use of prior marijuana as discussed, but we did consult with GI and they performed an EGD and colonoscopy. The colonoscopy didn't show any obvious abnormalities but prep wasn't ideal and will need to be repeated outpatient. The EGD did show some areas of erosions that could be source/contributing to your upper GI symptoms. They did take a biopsy and sent for H. Pylori testing which should be back in a couple of days. Per Dr Bradford, you should CONTINUE the Protonix TWICE a DAY, and INCREASE the Carafate to FOUR TIMES DAILY to help with healing and prevent issues. Of note, I did check a RUQ US given upper abdominal discomfort and this did show you did have some small amount of sludge in your gallbladder. Your LFTs were elevated initially but returned to normal after IV fluids and can be up from dehydration. There were no stones appreciated on imaging but it may not be a bad idea to stick to a LOW FAT diet in the meantime to see if this helps your symptoms. If persistent issues it may not also be a bad idea to ask about a referral as an outpatient for general surgery to see about an elective removal of your gallbladder. I also discussed the possibility of an insufficient pancreas, but you haven't had a history of pancreatitis, and your lipase level was low. However, your pancreas was mildly atrophic on imaging (shrinking) and Creon could also be tr ialed in the future as we discussed (this is the enzyme replacement we talked about that could help with digestion) You should avoid ALL alcohol, and AVOID NSAIDS including ibuprofen, Motrin and Aleve. You can take Tylenol for pain and have been sent a short supply of pain medications to get you over the acute phase. You have also been sent a short prescription for Zofran to take as needed for nausea. Your kidney function was elevated on admission, likely due to dehydration from vomiting and IV fluids were provided and your levels have returned back to normal. If you notice ongoing issues with n/v/abdominal pain despite treatment with above and after consideration for elective gallbladder removal, if symptoms persist, you should discuss starting medication called Obinna as we talked about which could help control symptoms related to cyclic vomiting disorder. You should have follow up with your PCP in the next 7-10 days. Please continue to push oral fluids and stay well hydrated. It is also recommended to QUIT smoking. Please return to the ER for any fever/chills, worsening abdominal pain, nausea or inability to keep up with oral intake or for any other symptoms concerning fo r you. Pending Studies at Discharge: Yes Studies:: H Pylori Stand-Alone Forms: My [facility], Opioid Pain Management, Smoking Cessation Medications and DC Order Prescriptions: New oxycodone-acetaminophen [Percocet] 5-325 mg Tablet 1 tab PO Q4H PRN (Reason: pain) Qty: 6 RF: 0 ondansetron 4 mg tablet,disintegrating 4 mg PO Q8H Qty: 7 RF: 0 Continued clonazepam 0.5 mg tablet 0.5 mg PO BID RF: 0 albuterol sulfate 90 mcg/actuation HFA aerosol inhaler 2 puff INHALATION QID PRN (Reason: Shortness Of Breath Or Wheezing or Cough) Qty: 8.5 RF: 0 quetiapine 25 mg tablet 50 mg PO HS RF: 0 lisinopril 20 mg tablet 20 mg PO QAM RF: 0 sucralfate 100 mg/mL suspension 5 ml PO QID Qty: 200 RF: 0 Changed pantoprazole 40 mg tablet,delayed release (DR/EC) 40 mg PO BID Qty: 60 RF: 3 Discharge Orders: Discharge Order (Routine); Ordered 12/02/21 Ordered By: Celestina Vasquez/Other Patient Handouts: ED Diet, Low Fat Admission Data Admit Date/Time: 11/30/21 23:43 Attending Provider: Isak Gayle Admit Provider: Andreea Medina Primary Care Provider: Miky Aquino Other Providers: Andreea Medina ; Joshua Bradford Other Interventions: Discharge Summary Assessment (RN) Last Done: 12/02/21 19:07 Coding Level of Care Code D/C DAY MANAGEMENT >30 MINS Diagnoses Abdominal pain R10.9 Abdominal location: unspecified location Acute kidney injury N17.9 Hypertension I10 Hypertension type: unspecified Cyclic vomiting syndrome R11.15 Gastritis K29.70 Hyponatremia E87.1 Polycythemia D75.1 Tobacco use disorder F17.200 Anxiety F41.9 Leukocytosis D72.829 Leukocytosis type: unspecified Hepatitis K75.9
[2021-12-02 19:08] VITALS: BP 135/88
[2021-12-07 16:21] LABS: Adrenocorticotropic Hormone 45 pg/mL (6-50); HBSAG NON-REACTIVE (NON-REACTIVE); Hepatitis A Antibody IgM NON-REACTIVE (NON-REACTIVE); Hepatitis B Core Antibody IgM NON-REACTIVE (NON-REACTIVE)
== END 2021-12-02 19:26 | disposition home or self-care (01) ==
LOC: ED 19:24 → SUATTDRO 23:43 → 3W 23:43 → INTOOBSV 23:43 → 3W 12-01 02:48

== ENCOUNTER 2022-04-19 17:51 | Observation (INO) ==
[2022-04-19] MEDS ORDERED: ONDANSETRON INJ 2 MG/ML 2 ML VIAL IV STA ×2 (18:04→20:03)
[2022-04-19 18:29] LABS: Basophils % (auto) 0.5 %; Hematocrit (blood only) 56.7 % (34.1-44.9); Hemoglobin 19.5 g/dl (12.0-16.0); Immature Granulocytes # (auto) 0.12 K/uL (0.00-0.02); Immature Granulocytes % (auto) 0.6 %; Lymphocytes # (auto) 1.26 K/uL (1.2-3.4); Lymphocytes % (auto) 6.6 %; Mean Corpuscular Hemoglobin 28.8 pg (25.0-34.0); Mean Corpuscular Hgb Conc 34.4 g/dL (32.0-36.0); Mean Corpuscular Volume 83.8 fL (80.0-100.0); Mean Platelet Volume 11.2 fL (9.4-12.3); Monocytes % (auto) 3.7 %; Neutrophils # (auto) 16.99 K/uL (1.4-6.5); Neutrophils % (auto) 88.6 %; Nucleated RBC # (auto) 0.02 K/uL (0-0); Nucleated RBC % (auto) 0.1 %; Platelet Count 414 K/uL (130-400); RDW Coefficient of Variation 15.1 % (11.5-14.5); RDW Standard Deviation 43.1 fL (36.4-46.3); Red Blood Count 6.77 M/uL (3.93-5.22); White Blood Count 19.17 K/ul (4.8-10.8)
[2022-04-19 19:03] LABS: Alanine Aminotransferase 21 U/L (7-52); Albumin Globulin Ratio 1.3 (0.9-2); Albumin Level 5.5 gm/dl (3.4-5.0); Alkaline Phosphatase 62 U/L (34-104); BUN Creatinine Ratio 12.9 (10-20); Bilirubin,Total 1.5 mg/dl (0.2-1.0); Blood Urea Nitrogen 15 mg/dl (6-23); Calcium 10.7 mg/dl (8.5-10.1); Carbon Dioxide 24 mmol/L (21-32); Chloride 92 mmol/L (98-107); Est GFR (African American) 62.7 ml/min; Est GFR (Non-African American) 54.1 ml/min; Globulin 4.3 gm/dl (2.5-4.0); Glucose 218 mg/dl (70-99(Fasting)); Lipase 9 U/L (11-82); Total Protein 9.8 gm/dl (6.0-8.3)
[2022-04-19] MEDS ORDERED: SODIUM CHLORIDE 0.9% 1000ML 1,000 ML IV ONE ×2 (19:31→19:34)
[2022-04-19] MEDS ORDERED: LORazepam 2 MG/1 ML VIAL IV STA (19:32)
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
[2022-04-19] MEDS ORDERED: MoRPHine SULFATE 4 MG/ML 1 ML CARP\\VIAL IV STA ×2 (20:02→22:12)
[2022-04-19] MEDS ORDERED: OPTIRAY 300 100mL IV ONE (20:33)
[2022-04-19 20:52] LABS: Magnesium 1.5 mg/dl (1.7-2.4); Potassium 4.1 mmol/L (3.5-5.1)
--- NOTE | 2022-04-19 20:55 | CT Scan Report ---
CT SCAN OF THE ABDOMEN AND PELVIS WITH IV CONTRAST CLINICAL HISTORY: Mid abdominal pain. COMPARISON STUDY: Abdominal CT dated 11/30/2021. TECHNIQUE: Following the IV administration of 73 cc of Optiray 300, CT scan of the abdomen and pelvi s is performed from the lung bases to the proximal femora. Images are reviewed in the axial, sagittal , and coronal planes. IV contrast was administered without complication. A dose lowering technique wa s utilized adhering to the principles of ALARA. CT DOSE: 444.07 mGy.cm FINDINGS: Lung bases: The heart is normal in size and without pericardial effusion. The lung bases are clear. T here is a tiny hiatal hernia. Liver: The contrast-enhanced liver is normal in size, contour, and attenuation. There is no intrahepa tic biliary ductal dilatation. The hepatic veins and portal veins are patent. Gallbladder: Unremarkable. Spleen: Normal in size and attenuation. Pancreas: Moderately atrophic and grossly unremarkable. Adrenal glands: Unremarkable. Kidneys: The contrast enhanced kidneys are normal in size and without hydronephrosis. Scattered subce ntimeter cortical hypodensities likely represent cysts but are too small for definitive characterizat ion. The kidneys enhance symmetrically. Urothelial thickening and enhancement is seen involving the l eft renal pelvis with mild surrounding infiltration. Abdominal vasculature: The abdominal aorta is normal in course and caliber noting moderate atheroscle rotic calcification. Bowel: There is no bowel obstruction. The appendix is not identified and reported surgically absent. Peritoneum: There is no intraperitoneal free air or abdominal ascites. There is a small fat-containin g umbilical hernia. Lymphadenopathy: None. Pelvic viscera: The bladder, uterus, and adnexa are normal as visualized. Skeletal structures: No lytic or blastic lesions are seen. IMPRESSION: 1. Nonspecific urothelial thickening and enhancement is seen involving the left renal pelvis with mil d surrounding infiltration. This could be seen with ascending urinary tract infection. Correlate with clinical findings and urinalysis. 2. Additional findings as above. ACT 112: Negative or not required by law. Electronically signed by: Felipe Spangler M.D. 04/19/2022 8:52 PM
[2022-04-19] MEDS ORDERED: PROMETHAZINE 12.5 MG/50.5 ML BAG IV STA (21:49)
[2022-04-19] MEDS ORDERED: cefTRIAXone SODIUM 2,000 MG/70 ML BAG IV STA (22:17)
[2022-04-19] MEDS ORDERED: SODIUM CHLORIDE 0.9% 1000ML 500 ML IV ONE (22:19)
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
[2022-04-20] MEDS ORDERED: CAPSAICIN CR 0.075% 60 GM TUBE EXT PRN (00:24)
[2022-04-20] MEDS ORDERED: PROMETHAZINE HCL 6.25 MG in SODIUM CHLORIDE 0.9% 50 ML IV PRN (00:24)
[2022-04-20] MEDS ORDERED: ALBUTEROL HFA 8 GM INHALER INH PRN (00:24)
[2022-04-20] MEDS ORDERED: ACETAMINOPHEN 325 MG TAB PO PRN (00:24)
[2022-04-20] MEDS: SODIUM CHLORIDE 0.9% 1000ML 1,000 ML IV SCH ×3 (00:59→23:09)
[2022-04-20] MEDS: ONDANSETRON INJ 2 MG/ML 2 ML VIAL IV SCH ×5 (01:01→23:51)
[2022-04-20] MEDS: MAGNESIUM SULFATE / D5W 1 GM/100 ML BAG IV SCH ×3 (01:41→05:57)
[2022-04-20 06:56] LABS: Appearance Urine Clear (Clear); Bacteria Urine Automated Negative (Negative); Bilirubin Urine Negative (Negative); Blood Urine 2+ (Negative); Color Urine Yellow; Epithelial Cell Urine Auto >30 /lpf (0-5); Glucose Urine UA Trace (Negative); Ketones Urine Trace (Negative); Leukocyte Esterase Urine Negative (Negative); Nitrite Urine Negative (Negative); Protein Urine 4+ (Negative); Specific Gravity Urine > 1.045 (1.000-1.030); Urobilinogen Urine Negative (Negative); pH Urine 6.5 (4.5-7.5)
--- NOTE | 2022-04-20 07:47 | Hospitalist Progress Note ---
Date of Service April 20, 2022 Assessment & Plan (1) Abdominal pain: Plan: Abdominal Pain Patient presents with severe abdominal pain. She is been having this pain/nausea for the past 8 years on and off and has been admitted multiple times. Liver studies including lipase are largely unremarkable with exception of T bili of 1.5 Lactate = 2.2 with repeat normal at 1.2 WBC = 19.17 on admission; today= 15.08 - Unclear etiology of pain; CT- Nonspecific urothelial thickening and enhancement is seen involving the left renal pelvis with mild surrounding infiltration. Denies are urinary symptoms or flank pain, UA unequivocal. Will follow urine culture. Received 1 dose of ceftriaxone in the ED. Continue Protonix 40 mg p.o. twice daily, sucralfate 5 mg p.o. 4 times daily Bentyl 20 mg p.o. 4 times daily started upon admission Continue to trend CBC/LFTs Morphine 1 mg IV every 6 hours as needed for pain (2 doses in the past 24hours) Topical capsaicin to the abdomen as needed for pain -Could consider adding SSRI/SNRI; will try to obtain past records Nausea Possibly in setting of cyclic vomiting, pt states that she does use marijuana but it helps with the nausea does not cause it Continue Protonix and sucralfate at home doses Phenergan 6.25 mg IV every 6 hours Zofran 4 mg IV every 6 hours Monitor QT interval - Continue fluids at 125mL/h -advance diet as tolerated Hypertension Blood pressure under control Continue lisinopril 30 mg p.o. every morning Anxiety Continue clonazepam 1mg BID Smoking Cessation Discussed with pt and she is not interested at this time Nicotine patch ordered Prophylaxislow risk for DVTencourage ambulation as tolerated, IV fluids Codefull per discussion with patient (2) Nausea and vomiting: (3) Hypertension: Supervising Physician Co-Signing Physician Notes Attending attestation Pt seen and examined in concert with Dr. Newell. In agreement with the documented findings as noted in the resident documentation with any exceptions or additions as noted here. Reports improvement in nausea/vomiting, though frustrated re: ongoing and recurrent symptoms despite significant attempts at treatment and evaluations. VS, nursing notes, labs, imaging reviewed. On examination, S1/S2 nl RRR no MCG. CTAB. Abd NT/ND BS+ve. Abdominal pain in the setting of recurrent nausea/vomiting - continue pantoprazole, sucralfate, dicyclomine, antiemetics and IV morphine for breakthrough. Offered SSRI and patient reports significant history of trials, so would defer to PCP unless we can obtain those records and determine. Tobacco use - may or may not be associated with symptoms but adamant re: not quitting. Continue nicotine patch and gentle encouragement. Else see resident documentation as noted. Subjective 52 year old female with a past medical history of COPD, HTN, anxiety, cyclic vomiting syndrome presented to the ED with 4 days of upper abdominal pain/cramping with nausea but no vomiting. She has been having episodes like this for the past 8-9 years and has been hospitalized multiple times most recently 11/30-12/02/21. In the ED she as given antiemetics and IV pain medications. Nausea improved this morning. Abdominal pain also improved, but still there. It's intermediate and she describes as crampy. Has been able to tolerate some fluids. Denies chest pain, dyspnea, constipation, diarrhea. Physical Exam Physical Exam: Constitutional: well-appearing, no acute distress HEENT: NCAT, no conjunctival injection CV: regular rhythm, no murmur appreciated, extremities well-perfused, no LE edema Resp: CTABL, no wheezes/rales/rhonchi appreciated, no increased work of breathing GI: soft, nondistended, upper abdominal tenderness without rebound or guarding, BS normoactive MSK: no gross deformities appreciated Skin: warm, dry, no rash appreciated Neuro: alert, oriented, no focal neurologic deficit appreciated Results & Data Results & Data ([facility]) Vital Signs (Past 12 Hours) Vital Signs Temp Pulse Pulse Resp BP Pulse Ox O2 Del Method 04/20/22 07:13 60 04/20/22 04:00 37.2 C 71 18 99/64 L 93 Room Air 04/20/22 00:25 70 04/20/22 00:39 37.2 C 67 20 151/102 H 95 Room Air 04/19/22 23:39 81 16 140/103 H 97 Room Air 04/19/22 19:56 85 22 218/139 H 96 Room Air Resident Activity Tracking Resident Involvement: Resident Care Provided Care Provided: Adult Hospital Medicine (1) Abdominal pain Abdominal location: unspecified location Qualified Code(s): R10.9 - Unspecified abdominal pain (2) Hypertension Hypertension type: unspecified Qualified Code(s): I10 - Essential (primary) hypertension
[2022-04-20] MEDS: SUCRALFATE 1 GM/10 ML UDC PO SCH ×4 (07:58→20:04)
[2022-04-20] MEDS: clonazePAM 1 MG TAB PO SCH ×2 (08:00→20:03)
[2022-04-20] MEDS: DICYCLOMINE HCL 20 MG TAB PO SCH ×3 (08:01→20:03)
[2022-04-20] MEDS: PANTOprazole 40 MG TAB PO SCH ×2 (08:01→20:04)
[2022-04-20] MEDS: lisinopril 10 MG TAB PO SCH (08:01)
[2022-04-20 08:40] LABS: Hematocrit (blood only) 49.1 % (34.1-44.9); Hemoglobin 17.3 g/dl (12.0-16.0); Mean Corpuscular Hemoglobin 28.9 pg (25.0-34.0); Mean Corpuscular Hgb Conc 35.2 g/dL (32.0-36.0); Mean Corpuscular Volume 82.1 fL (80.0-100.0); Mean Platelet Volume 10.9 fL (9.4-12.3); Platelet Count 309 K/uL (130-400); RDW Coefficient of Variation 14.7 % (11.5-14.5); RDW Standard Deviation 43.8 fL (36.4-46.3); Red Blood Count 5.98 M/uL (3.93-5.22); White Blood Count 15.08 K/ul (4.8-10.8)
[2022-04-20 09:09] LABS: Albumin Level 4.5 gm/dl (3.4-5.0); BUN Creatinine Ratio 20.6 (10-20); Bilirubin Direct 0.1 mg/dl (0-0.2); Calcium 9.5 mg/dl (8.5-10.1); Creatinine Clr Calc Pharmacy 72.9 ml/min; Est GFR (African American) 77.8 ml/min; Est GFR (Non-African American) 67.2 ml/min; Magnesium 2.9 mg/dl (1.7-2.4); Potassium 3.9 mmol/L (3.5-5.1); Total Protein 7.6 gm/dl (6.0-8.3)
[2022-04-20 10:40] LABS: Estimated Average Glucose 120 mg/dl; Hemoglobin A1C 5.8 % (4.5-5.6)
[2022-04-20] MEDS: NICOTINE 14 MG/24 HR PATCH TD SCH (11:20)
[2022-04-20] MEDS: MoRPHine SULFATE 2 MG/ML CARP IV PRN ×2 (11:21→19:30)
--- NOTE | 2022-04-20 13:08 | Electrocardiogram Report ---
Test Reason : Blood Pressure : / mmHG Vent. Rate : 115 BPM Atrial Rate : 115 BPM P-R Int : 140 ms QRS Dur : 078 ms QT Int : 328 ms P-R-T Axes : 078 002 062 degrees QTc Int : 453 ms Poor data quality, interpretation may be adversely affected Sinus tachycardia Possible Left atrial enlargement Nonspecific ST abnormality Abnormal ECG When compared with ECG of 01-DEC-2021 00:52, Borderline criteria for Inferior infarct are no longer Present Confirmed by Esvin Kam ([id number]) on 04/20/2022 1:08:25 PM Referred By: REFERRED SELF Confirmed By:Esvin Kam
[2022-04-20] MEDS ORDERED: MoRPHine SULFATE 2 MG/ML CARP IV STA (20:39)
[2022-04-20] MEDS ORDERED: SIMETHICONE 80 MG CHEW PO ONE (20:45)
[2022-04-21] MEDS: MoRPHine SULFATE 2 MG/ML CARP IV PRN ×2 (02:59→09:12)
[2022-04-21] MEDS: SODIUM CHLORIDE 0.9% 1000ML 1,000 ML IV SCH (06:12)
[2022-04-21] MEDS: ONDANSETRON INJ 2 MG/ML 2 ML VIAL IV SCH ×2 (06:13→11:19)
[2022-04-21] MEDS: SUCRALFATE 1 GM/10 ML UDC PO SCH ×2 (07:36→11:19)
--- NOTE | 2022-04-21 07:49 | Hospitalist Progress Note ---
Date of Service April 21, 2022 Assessment & Plan (1) Abdominal pain: Plan: Abdominal Pain Patient presents with severe abdominal pain. She is been having this pain/nausea for the past 8 years on and off and has been admitted multiple times. Liver studies including lipase are largely unremarkable with exception of T bili of 1.5 Lactate = 2.2 with repeat normal at 1.2 WBC = 19.17 on admission; today= 15.08 - Unclear etiology of pain; CT- Nonspecific urothelial thickening and enhancement is seen involving the left renal pelvis with mild surrounding infiltration. Denies are urinary symptoms or flank pain, UA unequivocal. Will follow urine culture. Received 1 dose of ceftriaxone in the ED. Continue Protonix 40 mg p.o. twice daily, sucralfate 5 mg p.o. 4 times daily Bentyl 20 mg p.o. 4 times daily started upon admission Continue to trend CBC/LFTs Morphine 1 mg IV every 6 hours as needed for pain (2 doses in the past 24hours) Topical capsaicin to the abdomen as needed for pain -Could consider adding SSRI/SNRI; will try to obtain past records Nausea Possibly in setting of cyclic vomiting, pt states that she does use marijuana but it helps with the nausea does not cause it Continue Protonix and sucralfate at home doses Phenergan 6.25 mg IV every 6 hours Zofran 4 mg IV every 6 hours Monitor QT interval - Continue fluids at 125mL/h -advance diet as tolerated Hypertension Blood pressure under control Continue lisinopril 30 mg p.o. every morning Anxiety Continue clonazepam 1mg BID Smoking Cessation Discussed with pt and she is not interested at this time Nicotine patch ordered Prophylaxislow risk for DVTencourage ambulation as tolerated, IV fluids Codefull per discussion with patient (2) Nausea and vomiting: (3) Hypertension: Admission and Anticipated Discharge Date Admission Date: April 19, 2022 Subjective 52 year old female with a past medical history of COPD, HTN, anxiety, cyclic vomiting syndrome presented to the ED with 4 days of upper abdominal pain/cramping with nausea but no vomiting. She has been having episodes like this for the past 8-9 years and has been hospitalized multiple times most recently 11/30-12/02/21. In the ED she as given antiemetics and IV pain medications. Overnight she was having some increased pain and received 1mg morphine in addition to simethicone. Nausea improved this morning. Abdominal pain also improved, but still there. It's intermediate and she describes as crampy. Has been able to tolerate some fluids. Denies chest pain, dyspnea, constipation, diarrhea. Physical Exam Physical Exam: Constitutional: well-appearing, no acute distress HEENT: NCAT, no conjunctival injection CV: regular rhythm, no murmur appreciated, extremities well-perfused, no LE edema Resp: CTABL, no wheezes/rales/rhonchi appreciated, no increased work of breathing GI: soft, nondistended, upper abdominal tenderness without rebound or guarding, BS normoactive MSK: no gross deformities appreciated Skin: warm, dry, no rash appreciated Neuro: alert, oriented, no focal neurologic deficit appreciated Results & Data Results & Data ([facility]) Vital Signs (Past 12 Hours) Vital Signs Temp Pulse Pulse Resp BP BP Pulse Ox 04/21/22 07:25 52 L 04/21/22 04:03 36.6 C 56 L 18 117/80 99 04/20/22 22:30 47 L 04/21/22 00:16 36.5 C 45 L 18 90/52 L 87/54 L 96 04/20/22 19:43 O2 Del Method 04/21/22 07:25 04/21/22 04:03 Room Air 04/20/22 22:30 04/21/22 00:16 Room Air 04/20/22 19:43 Room Air (1) Abdominal pain Abdominal location: unspecified location Qualified Code(s): R10.9 - Unspecified abdominal pain (2) Hypertension Hypertension type: unspecified Qualified Code(s): I10 - Essential (primary) hypertension
[2022-04-21 08:14] LABS: Hematocrit (blood only) 39.5 % (34.1-44.9); Hemoglobin 13.2 g/dl (12.0-16.0); Mean Corpuscular Hemoglobin 28.9 pg (25.0-34.0); Mean Corpuscular Hgb Conc 33.4 g/dL (32.0-36.0); Mean Corpuscular Volume 86.6 fL (80.0-100.0); Mean Platelet Volume 11.7 fL (9.4-12.3); Platelet Count 179 K/uL (130-400); RDW Coefficient of Variation 14.8 % (11.5-14.5); RDW Standard Deviation 47.1 fL (36.4-46.3); Red Blood Count 4.56 M/uL (3.93-5.22); White Blood Count 8.11 K/ul (4.8-10.8)
[2022-04-21 08:16] LABS: Basophils # (auto) 0.05 K/uL (0-0.2); Basophils % (auto) 0.6 %; Eosinophils # (auto) 0.12 K/uL (0-0.50); Eosinophils % (auto) 1.5 %; Immature Granulocytes # (auto) 0.04 K/uL (0.00-0.02); Immature Granulocytes % (auto) 0.5 %; Lymphocytes # (auto) 2.73 K/uL (1.2-3.4); Lymphocytes % (auto) 33.7 %; Monocytes % (auto) 6.2 %; Neutrophils # (auto) 4.67 K/uL (1.4-6.5); Neutrophils % (auto) 57.5 %
[2022-04-21] MEDS ORDERED: SIMETHICONE 80 MG CHEW PO PRN (08:22)
[2022-04-21 08:26] LABS: Albumin Globulin Ratio 1.6 (0.9-2); Albumin Level 3.5 gm/dl (3.4-5.0); BUN Creatinine Ratio 17.7 (10-20); Bilirubin,Total 0.8 mg/dl (0.2-1.0); Calcium 8.2 mg/dl (8.5-10.1); Creatinine Clr Calc Pharmacy 73.6 ml/min; Est GFR (African American) 78.8 ml/min; Globulin 2.2 gm/dl (2.5-4.0); Magnesium 2.1 mg/dl (1.7-2.4); Potassium 4.2 mmol/L (3.5-5.1); Total Protein 5.7 gm/dl (6.0-8.3)
[2022-04-21] MEDS: NICOTINE 14 MG/24 HR PATCH TD SCH (09:15)
[2022-04-21] MEDS: lisinopril 10 MG TAB PO SCH (09:16)
[2022-04-21] MEDS: DICYCLOMINE HCL 20 MG TAB PO SCH (09:16)
[2022-04-21] MEDS: clonazePAM 1 MG TAB PO SCH (09:16)
[2022-04-21] MEDS: PANTOprazole 40 MG TAB PO SCH (09:16)
--- NOTE | 2022-04-21 09:56 | Electrocardiogram Report ---
Test Reason : Blood Pressure : / mmHG Vent. Rate : 043 BPM Atrial Rate : 043 BPM P-R Int : 136 ms QRS Dur : 098 ms QT Int : 526 ms P-R-T Axes : 034 010 028 degrees QTc Int : 444 ms Marked sinus bradycardia Abnormal ECG When compared with ECG of 19-APR-2022 18:27, Vent. rate has decreased BY 72 BPM QRS duration has increased ST elevation has replaced ST depression in Lateral leads Confirmed by Esvin Kam ([id number]) on 04/21/2022 9:56:07 AM Referred By: REFERRED SELF Confirmed By:Esvin Kam
--- NOTE | 2022-04-21 10:35 | Discharge Summary ---
Date of Service April 21, 2022 Admission HPI Per Admitting Provider Charleen Mathis is a 52-year-old female with history of COPD, hypertension, anxiety, cyclic vomiting syndrome presenting with 4 days of abdominal pain and cramping as well as nausea and dry heaving. Her abdominal pain is mostly located in the upper abdomen, comes in waves "attacks" and is crampy and severe in nature. She has associated nausea with dry heaving. Denies fever but has had some chills. Denies cough, shortness of breath, chest pain, diarrhea or fever. Denies dysuria, increased urinary frequency or urgency. Upon arrival to the ER patient markedly hypertensive and in distress secondary to discomfort. She was administered several rounds of antiemetics as well as IV pain medication. During my encounter, patient's pain seems to be under control. She was somnolent but arousable and was able to answer questions and participate in exam. She does report that she still has abdominal pain as well as nausea. No additional complaints at this time ER course: Zofran 4 mg IV x2 doses, Phenergan 12.5 mg IV, Ativan 1 mg IV, morphine 4 mg IV x2 doses, normal saline x2 L, ceftriaxone Admission Exam Per Admitting Provider General: patient somnolent but arousable, able to answer questions and follow commands, no acute distress, nontoxic in appearance Skin: warm, dry, intact, no rashes or lesions HEENT: NC/AT, PERRL, EOMI, anicteric sclera, conjunctiva without injection, external ear normal to inspection and nontender, nares patent, dry mucus membranes, dentition intact, no oropharyngeal lesions, neck supple, trachea midline, no LAD, no thyromegaly, no JVD Heart: +S1/S2, regular, no m/r/g Lungs: equal air entry bilaterally, no rales/rhonchi/wheezes Abd: +BS, soft, tenderness with palpation of the upper abdomen, no rebound/guarding/peritoneal signs, nondistended, no organomegaly or ascites appreciated Ext: warm, 2+ pulses in UE/LE bilaterally, no clubbing/cyanosis or edema Neuro: nonfocal, speech intact, no facial droop, moving all extremities on command with equal strength 5/5 Principal Diagnosis Cyclic Vomiting Syndrome Discharge Exam Constitutional: well-appearing, no acute distress HEENT: NCAT, no conjunctival injection CV: regular rhythm, no murmur appreciated, extremities well-perfused, no LE edema Resp: CTABL, no wheezes/rales/rhonchi appreciated, no increased work of breathing GI: soft, nondistended, upper abdominal tenderness without rebound or guarding, BS normoactive MSK: no gross deformities appreciated Skin: warm, dry, no rash appreciated Neuro: alert, oriented, no focal neurologic deficit appreciated Discharge Data Allergies Allergy/AdvReac Type Severity Reaction Status Date / Time codeine AdvReac Intermediate GI SYMPTOMS Verified 04/19/22 23:04 morphine AdvReac Intermediate N/V Verified 04/19/22 23:04 tramadol AdvReac Intermediate GI SYMPTOMS Verified 04/19/22 23:04 meloxicam AdvReac Vomiting Unverified 04/19/22 23:12 Consultations 04/19/22 22:52 ED Decision to Admit Stat Ordered Studies 04/19/22 19:37 CT Abd and Pelvis [CT abd pelvis IV con only] Stat CT SCAN OF THE ABDOMEN AND PELVIS WITH IV CONTRAST CLINICAL HISTORY: Mid abdominal pain. COMPARISON STUDY: Abdominal CT dated 11/30/2021. TECHNIQUE: Following the IV administration of 73 cc of Optiray 300, CT scan of the abdomen and pelvis is performed from the lung bases to the proximal femora. Images are reviewed in the axial, sagittal, and coronal planes. IV contrast was administered without complication. A dose lowering technique was utilized adhering to the principles of ALARA. CT DOSE: 444.07 mGy.cm FINDINGS: Lung bases: The heart is normal in size and without pericardial effusion. The lung bases are clear. There is a tiny hiatal hernia. Liver: The contrast-enhanced liver is normal in size, contour, and attenuation. There is no intrahepatic biliary ductal dilatation. The hepatic veins and portal veins are patent. Gallbladder: Unremarkable. Spleen: Normal in size and attenuation. Pancreas: Moderately atrophic and grossly unremarkable. Adrenal glands: Unremarkable. Kidneys: The contrast enhanced kidneys are normal in size and without hydronephrosis. Scattered subcentimeter cortical hypodensities likely represent cysts but are too small for definitive characterization. The kidneys enhance symmetrically. Urothelial thickening and enhancement is seen involving the left renal pelvis with mild surrounding infiltration. Abdominal vasculature: The abdominal aorta is normal in course and caliber noting moderate atherosclerotic calcification. Bowel: There is no bowel obstruction. The appendix is not identified and reported surgically absent. Peritoneum: There is no intraperitoneal free air or abdominal ascites. There is a small fat-containing umbilical hernia. Lymphadenopathy: None. Pelvic viscera: The bladder, uterus, and adnexa are normal as visualized. Skeletal structures: No lytic or blastic lesions are seen. IMPRESSION: 1. Nonspecific urothelial thickening and enhancement is seen involving the left renal pelvis with mild surrounding infiltration. This could be seen with ascending urinary tract infection. Correlate with clinical findings and urinalysis. 2. Additional findings as above. Hospital Course (1) Abdominal pain: Abdominal Pain and Nausea Patient presents with severe abdominal pain. She is been having this pain/nausea for the past 8 years on and off and has been admitted multiple times. Liver studies including lipase are largely unremarkable with exception of T bili of 1.5 Lactate = 2.2 with repeat normal at 1.2 WBC = 19.17 on admission; trending down throughout admission= 8.11 on discharge - Received IV fluids and was eventually able to tolerate full diet prior to discharge - Unclear etiology of pain; CT- Nonspecific urothelial thickening and enhancement is seen involving the left renal pelvis with mild surrounding infiltration. Denies are urinary symptoms or flank pain, UA unequivocal. Received 1 dose of ceftriaxone in the ED, stopped due to lack of urinary symptoms Continue Protonix 40 mg p.o. twice daily, sucralfate 5 mg p.o. 4 times daily Bentyl 20 mg p.o. 4 times daily started upon admission She was managed with Morphine 1 mg IV and Zofran/Phenergan Plan: Added Bentyl. Will add Phenergan for nausea prn. Percocet at home dose for pain. F/u with GI at [facility] and PCP Hypertension Blood pressure under control Continue lisinopril 30 mg p.o. every morning Anxiety Continue clonazepam 1mg BID Smoking Cessation Discussed with pt and she is not interested at this time (2) Nausea and vomiting: (3) Hypertension: Total Time Total Time Spent Total Time Spent (In Minutes): 30 minutes. Discharge Plan Discharge Items Patient Disposition: Home - Self-Care Reason For Visit: ABDOMINAL PAIN, NAUSEA Discharge Diagnosis: cyclic vomitting syndrome Activity: Resume your previous activity Non-emergency contact: Primary Care Provider and Car Repairer Call non-emergency contact if: you have any medication questions, your symptoms worsen, your pain is not controlled and your pain is unusual for you Follow-up/Referrals: Amber Hernandes CRNP [Nurse Practitioner] - 04/26/22 8:40 am Eliza Mcfarland MD [Primary Care Provider] - (PLEASE CALL YOUR PRIMARY CARE PROVIDER TO SCHEDULE A DISCHARGE FOLLOW-UP APPOINTMENT WITHIN 7-10 DAYS.) Diet: Regular Addtl Attending Provider Instructions: You were admitted to the hospital for nausea and abdominal pain. You were treated with IV fluids in addition to anti nausea medications and pain medications. We started you on a new medication called Bentyl. We will send this medication to your pharmacy. We would like you to take 20mg 3 times per day to help with the abdominal cramping. We will also send Phenergan to your pharmacy which you can take as needed for nausea. We will send a prescription for the Percocet to your pharmacy. You can take it as needed for pain. A discharge summary will be sent to your primary care physician to ensure continuity of care. Please bring this discharge summary with you to your next office appointment so that your provider can review it at that time. Follow-up appointments: We have requested a follow-up appointment with your primary care physician within one week of discharge. Please call their office if you do not hear from them. We have also request a follow up visit with you Gi doctor. CONTACT YOUR PRIMARY CARE PROVIDER if you experience any of the following: Difficulty following your treatment plan, or difficulty taking medications CALL 911 OR GO TO THE EMERGENCY DEPARTMENT if you experience any of the following: Severe abdominal pain or nausea/vomiting Pending Studies at Discharge: No Stand-Alone Forms: My [facility] [employer], Smoking Cessation Medications and DC Order Prescriptions: New dicyclomine 20 mg Tablet 20 mg PO TID 30 Days Qty: 90 0RF promethazine 12.5 mg tablet 12.5 mg PO Q6H PRN (Reason: allergy symptoms) 30 Days Qty: 30 0RF Rx Instructions: 3 doses during day; last dose no later than 4 hr before bedtime oxycodone-acetaminophen [Percocet] 5-325 mg tablet 1 tab PO Q4H Qty: 12 0RF Continued albuterol sulfate 90 mcg/actuation HFA aerosol inhaler 2 puff INHALATION QID PRN (Reason: Shortness Of Breath Or Wheezing or Cough) Qty: 8.5 0RF clonazepam 1 mg tablet 1 mg PO BID lisinopril 30 mg tablet 30 mg PO QAM sucralfate 100 mg/mL suspension 5 ml PO QID Qty: 200 0RF pantoprazole 40 mg tablet,delayed release (DR/EC) 40 mg PO BID Qty: 60 3RF Discontinued oxycodone-acetaminophen [Percocet] 5-325 mg Tablet 1 tab PO Q4H PRN (Reason: pain) Qty: 6 0RF Discharge Orders: Discharge Order (Routine); Ordered 04/21/22 Ordered By: Marina Newell Admission Data Admit Date/Time: 04/19/22 23:30 Attending Provider: Pedrito Fox Admit Provider: Andreea Medina Primary Care Provider: Eliza Mcfarland Other Providers: Andreea Medina Other Interventions: Discharge Summary Assessment (RN) Last Done: 04/21/22 12:41 Supervising Physician Co-Signing Physician Notes Patient seen and examined in concert with Dr. Newell. In agreement with the documented findings as noted in the resident documentation. Patient reports improvement in nausea/vomiting, and is looking forward to returning home. She feels she is at a point where she is ready for discharge. Exam Pleasant alert. No distress appreciated. Heart regular rate and rhythm. Auscultated rate upon exam mid 50s. Lungs clear with nonlabored respirations Impression and plan Abdominal pain in the setting of recurrent nausea/vomiting - continue pantoprazole, sucralfate, dicyclomine, antiemetics and IV morphine for breakthrough. Offered SSRI and patient reports significant history of trials, so would defer to PCP unless we can obtain those records and determine. Tobacco use - may or may not be associated with symptoms but adamant re: not quitting. Continue nicotine patch and gentle encouragement. Additional per resident discharge summary.
== END 2022-04-21 13:04 | disposition home or self-care (01) ==
LOC: ED 17:51 → INTOOBSV 23:30 → SUATTDRO 23:30 → 2W 23:30

== ENCOUNTER 2023-07-13 21:19 | Inpatient (IN) ==
[2023-07-13] MEDS ORDERED: FAMOTIDINE 20MG IV PUSH 20 MG/5 ML SYR IV STA (21:51)
[2023-07-13] MEDS ORDERED: PANTOprazole 40 MG in SYRINGE 0 ML IV ONE (21:51)
[2023-07-13] MEDS ORDERED: ACETAMINOPHEN 1,000 MG/100 ML VIAL IV STA (21:51)
[2023-07-13] MEDS ORDERED: fentaNYL citrate PF 100 MCG/2 ML VIAL IV STA (21:51)
[2023-07-13] MEDS ORDERED: SODIUM CHLORIDE 0.9% 1,000 ML IV ONE ×2 (21:53→22:20)
[2023-07-13 22:13] LABS: Basophils # (auto) 0.07 K/uL (0.00-0.20); Basophils % (auto) 0.4 %; Eosinophils # (auto) 0.03 K/uL (0.00-0.50); Eosinophils % (auto) 0.2 %; Hematocrit (blood only) 48.2 % (37.0-47.0); Hemoglobin 17.3 g/dl (12.0-16.0); Immature Granulocytes # (auto) 0.09 K/uL (0.01-0.20); Immature Granulocytes % (auto) 0.5 %; Mean Corpuscular Hemoglobin 29.5 pg (25.0-34.0); Mean Corpuscular Hgb Conc 35.9 g/dL (32.0-36.0); Mean Corpuscular Volume 82.3 fL (80.0-100.0); Mean Platelet Volume 11.1 fL (9.4-12.4); Monocytes # (auto) 0.79 K/uL (0.11-0.59); Monocytes % (auto) 4.5 %; Neutrophils # (auto) 14.35 K/uL (1.40-6.50); Neutrophils % (auto) 81.4 %; Platelet Count 368 K/uL (130-400); RDW Coefficient of Variation 13.8 % (11.5-14.5); RDW Standard Deviation 40.9 fL (36.4-46.3); Red Blood Count 5.86 M/uL (4.20-5.40); White Blood Count 17.63 K/ul (4.8-10.8)
[2023-07-13 22:56] LABS: Partial Thromboplastin Ratio 1.1; Partial Thromboplastin Time 29.7 Seconds (21.0-31.0); Prothrombin Time 11.4 Seconds (9.0-12.0)
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
[2023-07-13 23:02] LABS: Albumin Level 4.9 gm/dl (3.4-5.0); Bilirubin,Total 0.9 mg/dl (0.2-1.0); Potassium 3.3 mmol/L (3.5-5.1)
[2023-07-13 23:13] LABS: Albumin Globulin Ratio 1.6 (0.9-2); BUN Creatinine Ratio 13.6 (10-20); Creatinine Clr Calc Pharmacy 14.5 ml/min; Est GFR (Non-African American) 9.5 ml/min; Globulin 3.1 gm/dl (2.5-4.0); Troponin I High Sensitivity 47.6 pg/ml (0-14)
[2023-07-14] MEDS ORDERED: PROMETHAZINE HCL 12.5 MG in SODIUM CHLORIDE 0.9% 50 ML IV PRN (00:17)
[2023-07-14] MEDS ORDERED: HYDROmorphone INJ 0.5 MG/0.5 ML SYR IV PRN (00:17)
[2023-07-14] MEDS ORDERED: POTASSIUM CHLORIDE 20 MEQ in LACTATED RINGER'S 1,000 ML IV ONE ×2 (00:30→03:00)
[2023-07-14 00:38] LABS: Troponin I High Sensitivity 35.9 pg/ml (0-14)
[2023-07-14 01:01] LABS: Appearance Urine Cloudy (Clear); Bilirubin Urine Negative (Negative); Blood Urine Negative (Negative); Color Urine Yellow; Epithelial Cell Urine Auto >30 /lpf (0-5); Glucose Urine UA Negative (Negative); Ketones Urine Trace (Negative); Leukocyte Esterase Urine Negative (Negative); Nitrite Urine Negative (Negative); Protein Urine 1+ (Negative); RBC Urine Automated 0-4 /hpf (0-4); Specific Gravity Urine 1.018 (1.000-1.030); Urobilinogen Urine Negative (Negative)
[2023-07-14 01:03] LABS: BUN Creatinine Ratio 16.1 (10-20); Calcium 8.5 mg/dl (8.6-10.3); Creatinine Clr Calc Pharmacy 17.8 ml/min; Est GFR (African American) 14.1 ml/min; Est GFR (Non-African American) 12.1 ml/min; Magnesium 1.8 mg/dl (1.7-2.4); Potassium 3.3 mmol/L (3.5-5.1)
[2023-07-14 01:14] LABS: Calcium Oxalate Crystals Urine Present (None Prsent); Cast Urine Automated >30 /lpf (0-5); Renal Epithelial Cells Urine 0-5 /lpf (0-5)
[2023-07-14 01:16] LABS: Bacteria Urine Automated 1+ (Negative)
[2023-07-14 01:29] LABS: Thyroid Stimulating Hormone 0.627 uIu/ml (0.300-4.500)
[2023-07-14] MEDS ORDERED: clonazePAM 1 MG TAB PO STA (01:41)
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
[2023-07-14] MEDS ORDERED: ESZOPICLONE 1 MG TAB PO PRN (02:42)
--- OUTSIDE RECORDS SUMMARY | 2023-07-14 03:41 | External Medical Summary | Summary of Care ---
Author Name Unknown Organization [facility] Address [address] [facility] [place] [address] Phone [phone] Care Team Providers Care Patient Ombudsperson Name Role Phone Guilherme Mcfarland MD Primary Care Prov ider Reason for Visit * Reason Onset Date Comments Appointment 06/19/2023 egd Encounter Details Date Type Department Care Team (Late st Contact Info) Description 06/19/2023 [facility]phone [facility] [address] [place] [address] Margaret Ling MD [address] [place] [address] Appointment (egd) Allergies Active Allergy Reactions Criticality Noted Date Comments Codeine Nausea/vomiting High 03/20/2014 Naloxone Nausea/vomiting 04/07/2022 Other reaction(s): rash/hives Tramadol Hives High 03/20/2014 Hydrocodone-Acetaminoph en Nausea/vomiting 12/09/2021 Hives and nausea documented as of this encounter (statuses as of 06/19/2023) Medications Medication Sig Dispensed Refills Start Date End Date Status Polyethylene Glycol 3350 17 GM/SCOOP Oral Powder (MiraLax) Take by mouth 17 g once a week . Dissolve one heaping tablespoon in 8 ounces of water or juice. 225 g 3 06/08/2022 Active Aprepitant 125 MG Oral Capsule (Emend) TAKE ONE CAPSULE BY MOUTH ONCE FOR 1 DOSE WITH ONSET OF VOMITING 10 Capsule 0 01/17/2023 Active Aprepitant 80 MG Oral Capsule (Emend) 1 capsule one time daily on Day 1 of vomiting 10 Capsule 4 01/23/2023 Active Fluticasone-Umecl idin-Vilant 200-62.5-25 MCG/ACT Aerosol Powder Breath Activated (Trelegy Ellipta) Inhale 1 Puff by mouth daily. 60 Blister Dosing Unit 11 01/23/2023 Active Lisinopril 40 MG Oral Tablet Take 1 Tablet by mouth in the morning. 90 Tablet 2 01/23/2023 Active Pantoprazole Sodium 40 MG Oral Tablet Delayed Release (Protonix) Take 1 Tablet by mouth in the morning and 1 Tablet before bedtime. 90 Tablet 3 01/23/2023 Active Sucralfate 1 GM/10ML Oral Suspension (Carafate) Take 10 mL by mouth in the morning and 10 mL at noon and 10 mL in the evening and 10 mL before bedtime. 420 mL 5 01/23/2023 Active Famotidine 20 MG Oral Tablet (Pepcid) Take 1 Tablet by mouth in the morning and 1 Tablet before bedtime. 180 Tablet 3 01/23/2023 Active Meclizine HCl 25 MG Oral Tablet (Antivert) Take 1-2 Tablets by mouth 2 times a day as needed for Nausea. 60 Tablet 1 02/06/2023 Active hydrALAZINE HCl 25 MG Oral Tablet (Apresoline) Take 2 Tablets by mouth 2 times a day. For blood pressure 120 Tablet 1 02/12/2023 Active Aprepitant 40 MG Oral Capsule 1 capsule once daily on Day 2 and Day 3 of vomiting 10 Capsule 4 03/05/2023 Active Prochlorperazine Maleate 10 MG Oral Tablet (Compazine) Take 1 Tablet by mouth every 6 hours as needed for Nausea. 30 Tablet 2 03/05/2023 Active Ventolin HFA 108 (90 Base) MCG/ACT Inhalation Aerosol Solution Inhale 2 Puffs by mouth every 4 hours as needed for Shortness of Breath or Wheezing. 18 g 2 06/18/2023 Active oxyCODONE-Acetami nophen 10-325 MG Oral Tablet (Percocet)Indicat ions:Chronic pain syndrome Take 1 Tablet by mouth every 6 hours as needed for Pain, Moderate or Pain, Severe. 120 Tablet 0 06/18/2023 Active Azithromycin 250 MG Oral Tablet (Zithromax) Take 2 tabs by mouth on the first day, then 1 tab daily on days two through five 6 Tablet 0 06/18/2023 Active predniSONE 20 MG Oral Tablet (Deltasone) Take 2 Tablets by mouth in the morning for 5 days. 10 Tablet 0 06/18/2023 06/23/2023 Active Azithromycin 250 MG Oral Tablet (Zithromax) Take 2 tabs by mouth on the first day, then 1 tab daily on days two through five 6 Tablet 0 06/18/2023 Active predniSONE 20 MG Oral Tablet (Deltasone) Take 2 Tablets by mouth in the morning for 5 days. 10 Tablet 0 06/18/2023 06/23/2023 Active Eszopiclone 2 MG Oral Tablet (Lunesta) Take 1 Tablet by mouth at bedtime. for sleep 30 Tablet 2 06/18/2023 Active clonazePAM 1 MG Oral Tablet (KlonoPIN) Take 1 Tablet by mouth in the morning and 1 Tablet before bedtime. 60 Tablet 3 06/18/2023 Active Varenicline Tartrate (Starter) 0.5 MG X 11 & 1 MG X 42 Tablet Therapy Pack Use as directed 53 Each 0 06/18/2023 Active documented as of this encounter (statuses as of 06/19/2023) Active Problems Problem Noted Date Diagnosed Date Current smoker 06/19/2023 Inflammatory liver disease 06/19/2023 Chronic insomnia 06/18/2023 Overview: Failed trazodone, seroquel, mirtazpine, melatonin, and Ambien. History of hepatitis C 06/18/2023 Cyclic vomiting syndrome 05/01/2023 Intractable vomiting 05/01/2023 History of appendectomy 12/26/2022 COPD, severe 12/26/2022 Intractable nausea and vomiting 12/21/2022 GEORGINA (acute kidney injury) 09/14/2022 Acute hyponatremia 09/14/2022 JESSIE (generalized anxiety disorder) 07/04/2022 Abdominal pain 06/12/2022 Nausea 06/12/2022 Gastroesophageal reflux disease 12/09/2021 Hypertensive urgency 05/23/2017 Recurrent generalized abdominal pain 05/23/2017 Nausea, vomiting and diarrhea 12/06/2014 Alkalosis, metabolic 12/06/2014 Chronic back pain 12/06/2014 Narcotic dependence 12/06/2014 HTN, goal below 140/90 03/20/2014 Lumbar degenerative disc disease 03/20/2014 Migraine 03/20/2014 Chronic airway obstruction, not elsewhere classi fied Lumbago Other psoriasis Dermatophytosis of foot documented as of this encounter (statuses as of 06/19/2023) Resolved Problems Problem Noted Date Diagnosed Date Resolved Date Prediabetes 12/26/2022 01/25/2023 Acute renal failure 12/21/2022 12/27/19 23 Sepsis 09/14/2022 12/26/2022 History of hepatitis C 07/25/202206/18 Hypertension 06/12/2022 12/26/2022 Chronic narcotic use 05/24/2017 022 Tobacco abuse disorder 05/23/201707/04 HTN, goal below 130/80 12/06/201412/26 TERMINATED MEDICATION USAGE AGREEMENT 07/08/2014 06/08/2022 Overview: Breech of narcotics agreement prior for oxycodone/hydrocodone 2013 New agreement for Clonazepam only entered on 04/07/22. Chronic hepatitis C virus infection 07/25/2022 Overview: Treated with Interferon HCV RNA negative as of 2016 documented as of this encounter (statuses as of 06/19/2023) Immunizations Name Administration Dates Next Due COVID-19, MRNA-LNP, 23-24, P F, 30 MCG/0.3 mL, 12 YRS AND ABOVE, IM (PFIZER-Comirnaty) 06/15/2023 Covid-19, Mrna, Lnp-s, Pf, B ivalent, 50 Mcg, IM, 12 yrs and above (Moderna) 04/24/2022 Pneumococcal Conjugate Vacci ne, 20-valent (Dmurong03) 03/31/2023,07/04/2022 Seasonal Influenza, Quadriva lent Hd (Fluzone Hd) 03/31/2023 Seasonal Influenza, Quadriva lent, No Preserve, Mdck 06/14/2018 Seasonal Influenza, Recombin ant, RIV4, PF, (Flublock) 04/11/2022,06/02/2020 Seasonal Influenza, Split, I IV3, With Preserve, Inj 06/06/2011,05/24/2010,05/03/2009,2007,07/19/2004 TDAP (age 10 and older)(Boostrix) 09/21/2022 Zoster Vaccine Recombinant (Shingrix) 04/11/2022 ,01/07/2021 documented as of this encounter Social History Tobacco Use Types Packs/Day Years Used Date Smoking Tobacco: Every Day Cigarettes 1 25 Smokeless Tobacco: Never Alcohol Use Standard Drinks/Week Comments No 0 (1 standard drink = 0.6 oz pur e alcohol) Sex and Gender Information Value Date Recorded Sex Assigned at Female 05/16/2022 11:28 AM EDT Gender Identity Female 05/16/2022 11:28 AM EDT Sexual Orientation Straight 05/16/2022 11 :28 AM EDT Job Start Date Occupation Industry Not on file Not on file Not on file documented as of this encounter Functional Status Functional Status Response Date of Assess ment Are you deaf or do you have serious difficulty h earing? No 12/21/2022 Are you blind or do you have serious difficulty seeing, even when wearing glasses? No 12/21/2022 Do you have serious difficul ty walking or climbing stairs? (5 years old or older) No 12/21/2022 Do you have difficulty dress ing or bathing? (5 years old or older) No 12/21/2022 Because of a physical, menta l, or emotional condition, do you have difficulty doing errands alone such as visiting a doctor s office or shopping? (15 years old or older) No 12/22/19 Cognitive Status Response Date of Assessm ent Because of a physical, menta l, or emotional condition, do you have serious difficulty concentrating, remembering, or making decisions? (5 years old or older No 12/21/2022 documented as of this encounter Miscellaneous Notes * Telephone Encounter - David Ramírez OSA - 06/19/2023 11:46 AM EST VM full on cell, myG sent asking pt to return call to schedule EGD. * Telephone Encounter - Astrid Padilla - 06/19/2023 8:57 AM EST Indication for study Vomiting INSURANCE [facility] insurance NOT accepted by [employer] Renuka [employer] and [employer] Medicare are accepted ONLY in [place] and ONLY with providers Adriana Sanabria Fabian, Jaime) Has procedure order been received OR is it a recall Yes Screening questions BMI greater than 45? No Who is your PCP/ Family doctor? [place] Any problems getting around? No Any head or chest cold within the last 2 week or on an antibiotic? No Any hx of seizures/strokes within the last 90 days? No Is the patient on Dialysis or have chronic renal failure? No (choose prep accordingly,GFR< 40 needs hospital) Has the patient had a recent cardiac event (heart attack, heart surgery, chest pain, irregular heart rhythm)? No Is the patient taking any blood thinning or anti-platelet medications? No What is the name of the medication? Who prescribes this for you? Does the patient have a defibrillator or pacemaker? No (must be done in hospital setting) Is the patient on home oxygen? Yes Does the patient have sleep apnea? No Is the patient a poorly controlled diabetic? No If yes, what medications do they take for this? (IFINSULIN DEPENDENT EARLY AM appt) Has the patient had problems with intubation or anesthesia in the past? No Does the patient have a family history of malignant hyperthermia? No Regarding Prep: Is the patient prone to constipation, have "sluggish" bowels? N/A (If YES, choose extended prep) Preassessment Nurse Status: 06/28/23 at [facility]. Instructions sent to patient through [employer]. * Telephone Encounter - Astrid Padilla - 06/19/2023 8:36 AM EST Spoke with patient, she would like to either go to [facility] or [facility]. Her last EGD was at [facility] in 2017. Patient does not meet GEM criteria due to severe COPD and chronic airway obstruction. If patient meets criteria, please schedule patient at [facility]. Also speaking with OIL RIGGER at [facility] to see if she meets criteria there also. 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 Tool: Provider Specialty: Gastroenterology Priority: Within 10 days (routine) Visit Coverage: [facility] PLAN [facility] Primary Payor: [facility] Appointment Info: Date: Time: Referral Type: Ancillary Services [] Expiration Date: Number of Visits Requested: 999 Associated Diagnosis: Cyclic vomiting syndrome (R11.15) Gastroesophageal reflux disease, unspecified whether esophagitis present (K21.9) Problem/Desired Service from [employer] Tool: Upper Endoscopy ASGE Guidelines Shahid's esophagus surveillance and Persistent vomiting of unknown cause ADDITIONAL INFORMATION 1. Is the patient on Coumadin? No 2. Is the patient on Pradaxa? No Order Specific Questions: Referral Priority: Within 10 days (routine) Where should this appointment be scheduled? [facility] Return Report and Study Results to the Requesting Physician & the PCP PCP: GUILHERME MCFARLAND Code #: [id number] Address: [address] [place] [id number] Date: Jun 18, 2023 ................................................................................ ............................................................................ Requesting Physician: Code #: Address: [address] [place] [id number] Date: Jun 18, 2023 Authorized by: Guilherme Mcfarland MD * Administrative Questions: [phone] or [phone] documented in this encounter Plan of Treatment Upcoming Encounters Date Type Department Care Team (Late st Contact Info) Description 06/28/2023 10:15 AM EST Appointment Endoscopy, [facility] [address] [place] [address] Marina Wills MD [address] [place] [address] 09/18/2023 1:00 [place] [address] Guilherme Mcfarland MD [address] [place] [address] Scheduled Procedures Name Priority Associated Diagnoses Date/Ti me ESOPHAGOGASTRODUODENOSCOPY ( EGD), FLEXIBLE, TRANSORAL, DIAGNOSTIC Epigastric pain Health Maintenance Due Date Last Done Comments DISCUSS TOBACCO CESSATION (REFER TO SMARTSET #5092) 1970 Hepatitis B (1 of 3 - 3-dose series) 1970 HIV Screening 1985 Albumin/Creatinine Ratio 01/29/1988 Alpha-1 Antitrypsin 01/29/1988 Pap Smear 1991 Cervical Cancer Screening 01/29/2000 HPV/Co-Test 01/29/2000 Mammogram 2010 Cologuard 2015 Colonoscopy 2015 Colorectal Cancer Screening 2015 Fecal Occult Blood Test 2015 Sigmoidoscopy 2015 Depression Screening 04/30/2015 04/30/2014 *COPD SEVERITY VERIFIED BY PFT 12/26/2015 LUNG CANCER SCREENING - USE SMARTSET 84305 01/29/2020 GFR 02/13/2024 02/12/2023, 12/13, 12/26/2022, Additional history exists O2 ASSESSMENT COMPLETED IN PAST YEAR FOR COPD 06/18/2024 06/18/2023 Diabetes Screening 02/12/2026 02/12/2023, 0 01/09/2023, 12/26/2022, Additional history exists Lipid Panel 09/15/2027 09/15/2022, 05/14, 03/20/2014 DTaP,Tdap,and Td Vaccines (2 - Td or Tdap) 09/21/2032 09/21/2022 Zoster Vaccines Completed 04/11/2022, 01/07/2021 Influenza Vaccine (FLU shot) Completed , 04/11/2022, 06/02/2020, Additional history exists Pneumococcal Vaccine: Pediatrics (0 to 5 Years) and At-Risk Patients (6 to 64 Years) Completed 03/31/2023, 07/04/2022 COVID-19 Vaccine Completed 06/15/2023, 04/24/2022 GARDASIL-HPV IMMUNIZATION SERIES Aged Out No longer eligible based on patient's age to complete this topic MENINGOCOCCAL (MENACTRA/MENVEO) Aged Out No longer eligible based on patient's age to complete this topic documented as of this encounter Medical Devices Not on filedocumented as of this encounter Advance Directives Latest Code Status on File Code Status Date Activated Date Inactivated Comments Full Code 12/21/2022 2:17 PM 12/22/2022 1:45 PM This order reflects the patients wishes and were consensually agreed upon. Question Answer Comments Discussion of Advance Directives occurred with: Patient Does the patient have a Living Will? No Does the patient have Health Care Power of Refractory Products Supervisor? No Code Status History Code Status Date Activated Date Inactivated Comments Full Code 09/14/2022 7:32 PM 09/15/2022 8:07 PM This or mary lou reflects the patients wishes and were consensually agreed upon. Question Answer Comments Discussion of Advance Directives occurred with: Patient Full Code 05/22/2017 10:15 AM 05/25/2017 5:28 PM Th is order reflects the patients wishes and were consensually agreed upon. Question Answer Comments Discussion of Advance Directives occurred with: Not Discussed Full Code 12/05/2014 5:33 PM 12/06/2014 6:55 PM This order reflects the patients wishes and were consensually agreed upon. Question Answer Comments Discussion of Advance Directives occurred with: Patient Care Teams Patient Ombudsperson Relationship Specialty Start Date End Date Guilherme Mcfarland MD [address] [place] [address] PCP - General Family Medicine 12/09/21 documented as of this encounter
--- OUTSIDE RECORDS SUMMARY | 2023-07-14 03:41 | External Medical Summary | Summary of Care ---
Author Name Unknown Organization [facility] Address [address] [place] [address] Phone [phone] Care Team Providers Care Office Technology Professor Name Role Phone Eliza Mcfarland MD Primary Care Prov ider Encounter Details Date Type Department Care Team (Latest Contact Info) Description 06/28/2023 11:59 PM [facility] Hospital Encounter Endoscopy, [facility] [address] [place], [place] [id number] Marina Wills MD [address] [place] [address] Canceled (Patient Cancel-Illness) Discharge Disposition: Home - Self Care Allergies Active Allergy Reactions Criticality Noted Date Comments Codeine Nausea/vomiting High 03/20/2014 Naloxone Nausea/vomiting 04/07/2022 Other reaction(s): rash/hives Tramadol Hives High 03/20/2014 Hydrocodone-Acetaminoph en Nausea/vomiting 12/09/2021 Hives and nausea documented as of this encounter (statuses as of 07/05/2023) Medications Medication Sig Dispensed Refills Start Date [...] of vomiting 10 Capsule 4 01/23/2023 Active Fluticasone-Umec lidin-Vilant 200-62.5-25 MCG/ACT Aerosol Powder Breath Activated (Trelegy [...] before bedtime. 420 mL 5 01/23/2023 Active Additional Information Patient not taking.Reported on 06/25/2023 Famotidine 20 MG Oral Tablet (Pepcid) Take [...] or Wheezing. 18 g 2 06/18/2023 Active oxyCODONE-Acetam inophen 10-325 MG Oral Tablet (Percocet)Indica tions:Chronic pain syndrome Take 1 Tablet by mouth every 6 hours as needed for Pain, Moderate or Pain, Severe. 120 Tablet 0 06/18/2023 Active Azithromycin 250 MG Oral Tablet (Zithromax) Take 2 tabs by mouth on the first day, then 1 tab daily on days two through five 6 Tablet 0 06/18/2023 Active Azithromycin 250 MG Oral Tablet (Zithromax) Take 2 tabs by mouth on the first day, then 1 tab daily on days two through five 6 Tablet 0 06/18/2023 Active Eszopiclone 2 MG Oral Tablet (Lunesta) [...] as directed 53 Each 0 06/18/2023 Active predniSONE 20 MG Oral Tablet (Deltasone) Take 2 Tablets by mouth in the morning for 5 days. 10 Tablet 0 06/18/2023 06/25/2023 documented as of this encounter (statuses as of 07/05/2023) Active Problems Problem Noted Date Diagnosed Date [...] as of this encounter (statuses as of 07/05/2023) Resolved Problems Problem Noted Date Diagnosed Date [...] as of this encounter (statuses as of 07/05/2023) Immunizations Name Administration Dates Next Due COVID-19, MRNA-LNP, 23-24, P F, 30 MCG/0.3 mL, 12 YRS AND ABOVE, IM (PFIZER-Comirnaty) 06/15/2023 Covid-19, Mrna, Lnp-s, Pf, B ivalent, 50 Mcg, IM, 12 yrs and above (Moderna) 04/24/2022 Pneumococcal Conjugate Vacci ne, 20-valent ([id number]) 03/31/2023,07/04/2022 Seasonal Influenza, Quadriva lent Hd (Fluzone [...] drink = 0.6 oz pur e alcohol) Hunger Vital Sign Answer Date Recorded Within the past 12 months, y ou worried that your food would run out before you got the money to buy more. Never true 11/24/19 Within the past 12 months, t he food you bought just didn't last and you didn't have money to get more. Never true 11/23/2022 Sex and Gender Information Value Date Recorded [...] or making decisions? (5 years old or older) No 12/21/2022 documented as of this encounter Nursing Notes * Cameron Ramesh RN - 06/28/2023 10:00 AM EST PREOP PATIENT INFORMATION AND EDUCATION: MEDICATION INSTRUCTIONS: The day of surgery/procedure, you may TAKE the following medications with a sip of water up to 2 hours prior to your arrival time: trelegy, famotidine, pantoprazole STOP taking the following medications the noted number of days prior to surgery/procedure unless otherwise specified by your surgeon: Please follow surgeon's instructions regarding use of Aspirin, Coumadin, Plavix, Eliquis, and any other blood thinner including NSAIDs (non-steroidal anti- inflammatory drugs, eg, Advil, Ibuprofen, Motrin, Aleve, Naproxen). 10 days prior to surgery/procedure Stop all Herbal supplements, Green Tea, Turmeric, Melatonin, CBD, THC, etc. Stop all Vitamins (including Vitamin E) 24 hours prior to surgery/procedure DO NOT consume any alcohol. DO NOT use medical marijuana. DO NOT smoke or use tobacco products of any kind after midnight prior to surgery. *Using any of these products may increase your risks of procedural complications. IF IT IS LESS THAN RECOMMENDED STOPPAGE TIME PLEASE STOP AT TIME OF NOTIFICATION. FASTING RECOMMENDATIONS: To reduce risk, it is important for all elective surgery patients to follow the specific fasting guidelines listed below. DO NOT EAT after midnight on the night prior to your surgery date. You are allowed to drink clear liquids up to two hours prior to arrival time to the hospital or surgery center. Examples of clear liquids include water, clear fruit juice without pulp, clear carbonated beverages, clear tea, and black coffee. Any drinks given by your surgical service take as directed. /pediatric patients who currently drink breast milk, infant formula, and non-human milk must not eat after midnight. These patients are allowed to drink only the liquids listed below up to two hours prior to arrival time to the hospital or surgery center: Ingested Material Minimum Fasting Time Clear liquid After midnight up to 2 hours prior to arrival time Breast milk Up to 4 hours prior to arrival time Infant formula Up to 6 hours prior to arrival time Non-human milk Up to 6 hours prior to arrival time THE DAY BEFORE YOUR SURGERY: -Drink plenty of fluid the day before your surgery. Contact your surgeon's office if you develop any of the following within 2 weeks of surgery: A cold Infection Fever Shingles Chicken pox or exposure to chicken pox Open areas such as scrapes, cuts, vora or other skin conditions Rashes GENERAL INSTRUCTIONS FOR PREPARING FOR SURGERY: BATHING INSTRUCTIONS: Bathe the evening prior to and the morning of surgery/procedure. Cleanse your body using ONLY anti-bacterial soap (eg, Dial, Safeguard) or any specific soap/cleansers and instructions provided by your surgeon (eg, Chlorhexidine). -You should brush your teeth the morning of surgery. Do NOT apply any lotions, powders, sprays, creams, oils, make-up, or deodorants after bathing. No hairspray, or nail pitcairn islander on fingers or toes. Day of surgery/procedure do not use tampons. If you wear contacts wear your eyeglasses if available otherwise bring your contact supplies with you to remove them prior to your surgery/procedure. If you wear glasses or dentures, please bring cases in which you can store them during your surgery. Please remove all piercings and jewelry and leave them at home. Wear comfortable and loose clothing. -Please leave all valuables at home. -If you use a CPAP and are staying overnight, please bring your mask and tubing with you to the hospital. -If you use an assistive mobility device (walker, cane, etc), please label it with your name and bring to hospital. -An escort driver sales is required if you are being discharged the same day of the surgery. You should have a responsible adult over the age of 18 [address] drive you home. This person should be present with youin the hospital at the time of discharge and for the first 24 hours after the surgery to support your needs. If you are taking a taxi home, you must have your responsible libertarian accompany you in the taxi ride home at the time of discharge. OR times subject to change. Please check voicemail messages the day/evening before your surgery forany updates. PRE-OP: You will be taken to the pre-op area where your vital signs (blood pressure, pulse and temperature)will be taken. Any preparations that need to be done will be done there. When it is time for your surgery, you will be taken to the operating room. PARENTS OF PEDIATRIC PATIENTS WILL BE ALLOWED TO STAY WITH THEIR CHILDREN UNTIL THEY ARE ESCORTED TO THE OPERATING ROOM OUTPATIENT SURGERY PATIENTS: After your surgery you will be taken to the Same Day Surgery Unit when you are awake and will go home from there. You will get instructions about your home care before you leave. Arrange to have someone drive you home from the hospital. You may not drive for 24 hours after anesthesia. You must havean adult stay with you at home for 24 hours after your operation. This is very important. If you are not able to comply with these guidelines, your Short Stay surgery cannot be done. ADMISSION PATIENTS: After your stay in the recovery area, you will be taken to your room. Your family may visit you in your room based on current visitation policy. If a next day discharge is expected, it is important to make arrangements for a driver sales to take you home. Please be aware our visitation policies are subject to change Professionals, attendants, caregivers or family members are allowable visitors for patients with intellectual, developmental or cognitive disabilities, communication barriers or behavioral concerns. Because patients' and families' needs vary, they will be taken into account when applying visitation restrictions. [facility]: ext [phone] Please enter through the Main Entrance of the [facility] which is directly across from the main parking lot. Stop at the registration desk, which is inside the main entrance, to register first. They will then direct you back to Same Day Surgery. You will be called the day before surgery (on Sunday if your surgery is Sunday) with the time to be at the hospital. If you have notbeen called by 4:00 p.m., please call [phone] and ask for the nursing zone supervisor firearms. THANK YOU FOR CHOOSING [facility]! documented in this encounter Plan of Treatment Upcoming Encounters Date Type Department Care Team (Late st Contact Info) Description 09/18/2023 1:00 PM EST Telemedicine [facility] [address] [place] [address] Eliza Mcfarland MD [address] [place] [address] Scheduled Procedures Name Priority Associated Diagnoses Date/Ti me ESOPHAGOGASTRODUODENOSCOPY ( EGD), FLEXIBLE, TRANSORAL, DIAGNOSTIC Epigastric pain Health Maintenance Due Date Last Done Comments DISCUSS TOBACCO CESSATION (REFER TO SMARTSET #5852) 1970 Hepatitis B (1 of 3 - 3-dose series) 1970 HIV Screening 1985 Albumin/Creatinine Ratio 01/29/1988 Alpha-1 Antitrypsin 01/29/1988 Pap Smear 1991 Cervical Cancer Screening 01/29/2000 HPV/Co-Test 01/29/2000 Mammogram 2010 Cologuard 2015 Colonoscopy 2015 Colorectal Cancer Screening 2015 Fecal Occult Blood Test 2015 Sigmoidoscopy 2015 Depression Screening 04/30/2015 04/30/2014 *COPD SEVERITY VERIFIED BY PFT 12/26/2015 LUNG CANCER SCREENING - USE SMARTSET [id number] 01/29/2020 GFR 02/13/2024 02/12/2023, 12/13, 12/26/2022, Additional [...] the patient have Health Care Power of Forest Pathology Professor? No Code Status History Code Status Date [...] Advance Directives occurred with: Patient Care Teams Office Technology Professor Relationship Specialty Start Date End Date Eliza Mcfarland MD [address] [place] [address] PCP - General Family Medicine 12/09/21 documented as of this encounter
--- OUTSIDE RECORDS SUMMARY | 2023-07-14 03:41 | External Medical Summary | Summary of Care ---
Author Name Unknown Organization [facility] Address [address] [place] [address] Phone [phone] Care Team Providers Care Sales Project Administrator Name Role Phone Eliza Mcfarland MD Primary Care Prov ider Encounter Details Date Type Department Care Team (Late st Contact Info) Description 07/04/2023 Telephone OR [facility], Operating Room, [facility] 1st Floor [address] [place] [address] Eliza Mcfarland MD [address] [place] [id number] Allergies Active Allergy Reactions Criticality Noted Date Comments Codeine Nausea/vomiting High 03/20/2014 Naloxone Nausea/vomiting 04/07/2022 Other reaction(s): rash/hives Tramadol Hives High 03/20/2014 Hydrocodone-Acetaminoph en Nausea/vomiting 12/09/2021 Hives and nausea documented as of this encounter (statuses as of 07/04/2023) Medications Medication Sig Dispensed Refills Start Date [...] as of this encounter (statuses as of 07/04/2023) Active Problems Problem Noted Date Diagnosed Date [...] as of this encounter (statuses as of 07/04/2023) Resolved Problems Problem Noted Date Diagnosed Date [...] as of this encounter (statuses as of 07/04/2023) Immunizations Name Administration Dates Next Due COVID-19, MRNA-LNP, 23-24, P F, 30 MCG/0.3 mL, 12 YRS AND ABOVE, IM (PFIZER-Comirnaty) 06/15/2023 Covid-19, Mrna, Lnp-s, Pf, B ivalent, 50 Mcg, IM, 12 yrs and above (Moderna) 04/24/2022 Pneumococcal Conjugate Vacci ne, 20-valent ([id number]) 03/31/2023,07/04/2022 Seasonal Influenza, Quadriva lent Hd (Fluzone [...] money to buy more. Never true 11/24/19 23 Within the past 12 months, t he [...] encounter Miscellaneous Notes * Telephone Encounter - Camilla Carlton NCMA - 07/04/2023 10:37 AM EST Noted documented in this encounter Plan of Treatment Upcoming Encounters Date Type Department Care Team (Late st Contact Info) Description 07/04/2023 11:45 AM EST Hospital Encounter Endoscopy, [place] [address] [place] [address] Leslie Borja, [address] [place] [address] 09/18/2023 1:00 PM EST Telemedicine [facility] [address] [place] [address] Eliza Mcfarland MD [address] [place] [address] Scheduled Procedures Name Priority Associated Diagnoses Date/Ti me ESOPHAGOGASTRODUODENOSCOPY ( EGD), FLEXIBLE, TRANSORAL, DIAGNOSTIC Epigastric pain Health Maintenance Due Date Last Done Comments DISCUSS TOBACCO CESSATION (REFER TO SMARTSET #7212) 1970 Hepatitis B (1 of 3 - 3-dose series) 1970 HIV Screening 1985 Albumin/Creatinine Ratio 01/29/1988 Alpha-1 Antitrypsin 01/29/1988 Pap Smear 1991 Cervical Cancer Screening 01/29/2000 HPV/Co-Test 01/29/2000 Mammogram 2010 Cologuard 2015 Colonoscopy 2015 Colorectal Cancer Screening 2015 Fecal Occult Blood Test 2015 Sigmoidoscopy 2015 Depression Screening 04/30/2015 04/30/2014 *COPD SEVERITY VERIFIED BY PFT 12/26/2015 LUNG CANCER SCREENING - USE SMARTSET [id number] 01/29/2020 GFR 02/13/2024 02/12/2023, 12/13, 12/26/2022, Additional [...] the patient have Health Care Power of Finance Analyst? No Code Status History Code Status Date [...] Advance Directives occurred with: Patient Care Teams Sales Project Administrator Relationship Specialty Start Date End Date Eliza Mcfarland MD [address] [place] [address] PCP - General Family Medicine 12/09/21 documented as of this encounter
--- OUTSIDE RECORDS SUMMARY | 2023-07-14 03:41 | External Medical Summary | Summary of Care ---
Author Name Unknown Organization [facility] Address [address] [facility] [place] [address] Phone [phone] Care Team Providers Care Credit Front Office Developer Name Role Phone Guilherme Mcfarland MD Primary Care Prov ider Reason for Visit * Reason Onset Date Comments Appointment 06/19/2023 egd Encounter Details Date Type Department Care Team (Late st Contact Info) Description 06/19/2023 [facility]phone [facility] [address] [place] [address] Margaret Ling MD [address] [place] [address] Appointment (egd) Allergies Active Allergy Reactions Criticality Noted Date Comments Codeine Nausea/vomiting High 03/20/2014 Naloxone Nausea/vomiting 04/07/2022 Other reaction(s): rash/hives Tramadol Hives High 03/20/2014 Hydrocodone-Acetaminoph en Nausea/vomiting 12/09/2021 Hives and nausea documented as of this encounter (statuses as of 06/20/2023) Medications Medication Sig Dispensed Refills Start Date [...] for 5 days. 10 Tablet 0 06/18/2023 06/24/2023 Active Azithromycin 250 MG Oral Tablet (Zithromax) [...] as of this encounter (statuses as of 06/20/2023) Active Problems Problem Noted Date Diagnosed Date [...] as of this encounter (statuses as of 06/20/2023) Resolved Problems Problem Noted Date Diagnosed Date [...] as of this encounter (statuses as of 06/20/2023) Immunizations Name Administration Dates Next Due COVID-19, MRNA-LNP, 23-24, P F, 30 MCG/0.3 mL, 12 YRS AND ABOVE, IM (PFIZER-Comirnaty) 06/15/2023 Covid-19, Mrna, Lnp-s, Pf, B ivalent, 50 Mcg, IM, 12 yrs and above (Moderna) 04/24/2022 Pneumococcal Conjugate Vacci ne, 20-valent ([id number]) 03/31/2023,07/04/2022 Seasonal Influenza, Quadriva lent Hd (Fluzone [...] encounter Miscellaneous Notes * Telephone Encounter - Warren Torres OSA - 06/20/2023 12:26 PM EST EGD scheduled at [facility] on 06/28 * Telephone Encounter - David Ramírez OSA - 06/19/2023 11:46 AM EST VM full on cell, myG sent asking pt to return call to schedule EGD. * Telephone Encounter - Astrid Padilla - 06/19/2023 8:57 AM EST Indication for study Vomiting INSURANCE [facility] insurance NOT accepted by [employer] Renuka Advantra and A[employer]na Medicare are accepted ONLY in [place] and ONLY with providers Adriana Sanabria Fabian, [...] extended prep) Preassessment Nurse Status: 06/28/23 at [facility]. Instructions sent to patient through [employer]. * Telephone Encounter - Astrid Padilla - 06/19/2023 8:36 AM EST Spoke with patient, she would like to either go to [facility] or [facility]. Her last EGD was at [facility] in 2017. Patient does not meet GEM criteria due to severe COPD and chronic airway obstruction. If patient meets criteria, please schedule patient at [facility]. Also speaking with PIECE WORK INSPECTOR at [facility] to see if she meets criteria there also. * Telephone Encounter - Sun Luciano OSA - 06/19/2023 8:12 AM EST OUTPATIENT REFERRAL REQUEST UPPER ENDOSCOPY GI REFERRAL OP Name: Charleen Mathis Birthdate: 1970 Patient's Address: [address] [facility] [place] [address] Home: Work: Patient Preference: Referral ID: [id number] Referred To: UPPER ENDOSCOPY GI REFERRAL OP Ventilated Rib Fitter: Provider Specialty: Gastroenterology Priority: Within 10 days (routine) Visit Coverage: [facility] [facility] Primary Payor: [facility] Appointment Info: Date: Time: Referral Type: Ancillary Services [] Expiration Date: Number of Visits Requested: 999 Associated Diagnosis: Cyclic vomiting syndrome (R11.15) Gastroesophageal reflux disease, unspecified whether esophagitis present (K21.9) Problem/Desired Service from Ventilated Rib Fitter: Upper Endoscopy ASGE Guidelines Shahid's esophagus surveillance and Persistent vomiting of unknown cause ADDITIONAL INFORMATION 1. Is the patient on Coumadin? No 2. Is the patient on Pradaxa? No Order Specific Questions: Referral Priority: Within 10 days (routine) Where should this appointment be scheduled? [facility] Return Report and Study Results to the Requesting Physician & the PCP PCP: GUILHERME MCFARLAND Code #: [id number] Address: [address] [place] [address] / [facility] [address] Date: Jun 18, 2023 ................................................................................ ............................................................................ Requesting Physician: Code #: Address: [address] [place] [address] Date: Jun 18, 2023 Authorized by: Guilherme Mcfarland MD * Administrative Questions: [phone] or [phone] documented in this encounter Plan of Treatment Upcoming Encounters Date Type Department Care Team (Late st Contact Info) Description 06/28/2023 10:15 AM EST Appointment Endoscopy, [facility] [address] [place] [address] Marina Wills MD [address] [place] [address] 09/18/2023 1:00 [place] [address] Guilherme Mcfarland MD [address] [place] [phone] Scheduled Procedures Name Priority Associated Diagnoses Date/Ti me ESOPHAGOGASTRODUODENOSCOPY ( EGD), FLEXIBLE, TRANSORAL, DIAGNOSTIC Epigastric pain Health Maintenance Due Date Last Done Comments DISCUSS TOBACCO CESSATION (REFER TO SMARTSET #2860) 1970 Hepatitis B (1 of 3 - 3-dose series) 1970 HIV Screening 1985 Albumin/Creatinine Ratio 01/29/1988 Alpha-1 Antitrypsin 01/29/1988 Pap Smear 1991 Cervical Cancer Screening 01/29/2000 HPV/Co-Test 01/29/2000 Mammogram 2010 Cologuard 2015 Colonoscopy 2015 Colorectal Cancer Screening 2015 Fecal Occult Blood Test 2015 Sigmoidoscopy 2015 Depression Screening 04/30/2015 04/30/2014 *COPD SEVERITY VERIFIED BY PFT 12/26/2015 LUNG CANCER SCREENING - USE SMARTSET [id number] 01/29/2020 GFR 02/13/2024 02/12/2023, 12/13, 12/26/2022, Additional [...] the patient have Health Care Power of Spouting Installer? No Code Status History Code Status Date [...] Advance Directives occurred with: Patient Care Teams Credit Front Office Developer Relationship Specialty Start Date End Date Guilherme Mcfarland MD [address] [place] [id number] PCP - General Family Medicine 12/09/21 documented as of this encounter
--- OUTSIDE RECORDS SUMMARY | 2023-07-14 03:41 | External Medical Summary | Summary of Care ---
Author Name Unknown Organization [facility] Address [address] [facility] [place] [address] Phone [phone] Care Team Providers Care Fire Patrol Name Role Phone Eliza Mcfarland MD Primary Care Prov ider Reason for Visit * Reason Onset Date Comments Appointment 06/26/2023 /[facility] Encounter Details Date Type Department Care Team (Late st Contact Info) Description 06/26/2023 [facility]phone [facility] 10 [place], [place] [phone] Marina Wills MD 10 [place] [address] Appointment (/DEMOND) Allergies Active Allergy Reactions Criticality Noted Date Comments Codeine Nausea/vomiting High 03/20/2014 Naloxone Nausea/vomiting 04/07/2022 Other reaction(s): rash/hives Tramadol Hives High 03/20/2014 Hydrocodone-Acetaminoph en Nausea/vomiting 12/09/2021 Hives and nausea documented as of this encounter (statuses as of 06/26/2023) Medications Medication Sig Dispensed Refills Start Date [...] as of this encounter (statuses as of 06/26/2023) Active Problems Problem Noted Date Diagnosed Date [...] as of this encounter (statuses as of 06/26/2023) Resolved Problems Problem Noted Date Diagnosed Date [...] as of this encounter (statuses as of 06/26/2023) Immunizations Name Administration Dates Next Due COVID-19, MRNA-LNP, 23-24, P F, 30 MCG/0.3 mL, 12 YRS AND ABOVE, IM (PFIZER-Comirnaty) 06/15/2023 Covid-19, Mrna, Lnp-s, Pf, B ivalent, 50 Mcg, IM, 12 yrs and above (Moderna) 04/24/2022 Pneumococcal Conjugate Vacci ne, 20-valent ([id number]) 03/31/2023,07/04/2022 Seasonal Influenza, Quadriva lent Hd (Fluzone [...] Telephone Encounter - Camilla Carlton NCMA - 06/26/2023 10:57 AM EST I was able to find an opening on 07/04 at [facility] with Dr. Leslie Borja DO. I did put pt on schedule and called to inform of the change. No answer, line just rings, no VM to LM * Telephone Encounter - Marina Wills MD - 06/26/2023 10:49 AM EST Patient with severe COPD and last week was noted to have COPD exacerbation. Please help reschedule EGD (within a month). Thank you. documented in this encounter Plan of Treatment Upcoming Encounters Date Type Department Care Team (Latest Contact Info) Description 06/28/2023 10:00 AM EST Hospital Encounter Endoscopy, [facility] [address] [place] [address] Marina Wills MD 10 [place] [address] Canceled (Patient Cancel-Illness) 07/04/2023 10:15 AM EST Appointment Endoscopy, [place] [address] [place] [address] Leslie Borja DO 10 [place] [address] 09/18/2023 1:00 PM EST Telemedicine [facility] [address] [place] [address] Eliza Mcfarland MD [address] [place] [address] Scheduled Procedures Name Priority Associated Diagnoses Date/Ti me ESOPHAGOGASTRODUODENOSCOPY ( EGD), FLEXIBLE, TRANSORAL, DIAGNOSTIC Epigastric pain Health Maintenance Due Date Last Done Comments DISCUSS TOBACCO CESSATION (REFER TO SMARTSET #0664) 1970 Hepatitis B (1 of 3 - 3-dose series) 1970 HIV Screening 1985 Albumin/Creatinine Ratio 01/29/1988 Alpha-1 Antitrypsin 01/29/1988 Pap Smear 1991 Cervical Cancer Screening 01/29/2000 HPV/Co-Test 01/29/2000 Mammogram 2010 Cologuard 2015 Colonoscopy 2015 Colorectal Cancer Screening 2015 Fecal Occult Blood Test 2015 Sigmoidoscopy 2015 Depression Screening 04/30/2015 04/30/2014 *COPD SEVERITY VERIFIED BY PFT 12/26/2015 LUNG CANCER SCREENING - USE SMARTSET [id number] 01/29/2020 GFR 02/13/2024 02/12/2023, 12/13, 12/26/2022, Additional [...] the patient have Health Care Power of Tutor Coordinator? No Code Status History Code Status Date [...] Advance Directives occurred with: Patient Care Teams Fire Patrol Relationship Specialty Start Date End Date Eliza Mcfarland MD [address] [place] [address] PCP - General Family Medicine 12/09/21 documented as of this encounter
--- OUTSIDE RECORDS SUMMARY | 2023-07-14 03:41 | External Medical Summary | Summary of Care ---
Author Name Unknown Organization [facility] Address [address] [place] [address] Phone [phone] Care Team Providers Care Agricultural Chemist Name Role Phone Eliza Mcfarland MD Primary Care Prov ider Reason for Visit * Reason Onset Date Comments Preop Pt Assessment 06/25/2023 Encounter Details Date Type Department Care Team (Late st Contact Info) Description 06/25/2023 Telephone Pre Surgery, [facility] [address] [place] [address] Marina Wills MD 10 [place] [address] Preop Pt Assessment Allergies Active Allergy Reactions Criticality Noted Date [...] (Moderna) 04/24/2022 Pneumococcal Conjugate Vacci ne, 20-valent ([id number]) 03/31/2023,07/04/2022 Seasonal Influenza, Quadriva lent Hd (Fluzone [...] Encounter - Camilla Carlton NCMA - 06/26/2023 10:54 AM EST There is already an encounter on this started. Will reach out to pt to r/s the EGD documented in this encounter Plan of Treatment Upcoming Encounters Date Type Department Care Team (Latest Contact Info) Description 06/28/2023 10:00 AM EST Hospital Encounter Endoscopy, [facility] [address] [place] [address] Marina Wills MD 10 [place] [address] Canceled (Patient Cancel-Illness) 07/04/2023 10:15 AM EST Appointment Endoscopy, [facility] [address] [place] [address] Leslie Borja DO 10 [place] [address] 09/18/2023 1:00 PM EST Telemedicine [facility] [address] [place] [address] Eliza Mcfarland MD [address] [place] [address] Scheduled Procedures Name Priority Associated Diagnoses Date/Ti me ESOPHAGOGASTRODUODENOSCOPY ( EGD), FLEXIBLE, TRANSORAL, DIAGNOSTIC Epigastric pain Health Maintenance Due Date Last Done Comments DISCUSS TOBACCO CESSATION (REFER TO SMARTSET #3291) 1970 Hepatitis B (1 of 3 - 3-dose series) 1970 HIV Screening 1985 Albumin/Creatinine Ratio 01/29/1988 Alpha-1 Antitrypsin 01/29/1988 Pap Smear 1991 Cervical Cancer Screening 01/29/2000 HPV/Co-Test 01/29/2000 Mammogram 2010 Cologuard 2015 Colonoscopy 2015 Colorectal Cancer Screening 2015 Fecal Occult Blood Test 2015 Sigmoidoscopy 2015 Depression Screening 04/30/2015 04/30/2014 *COPD SEVERITY VERIFIED BY PFT 12/26/2015 LUNG CANCER SCREENING - USE SMARTSET [id number] 01/29/2020 GFR 02/13/2024 02/12/2023, 12/13, 12/26/2022, Additional [...] the patient have Health Care Power of Tie Cutter? No Code Status History Code Status Date [...] Advance Directives occurred with: Patient Care Teams Agricultural Chemist Relationship Specialty Start Date End Date Eliza Mcfarland MD [address] [place] [address] PCP - General Family Medicine 12/09/21 documented as of this encounter
--- OUTSIDE RECORDS SUMMARY | 2023-07-14 03:41 | External Medical Summary | Summary of Care ---
Author Name Unknown Organization [facility] Address [address] [facility] [place] [address] Phone [phone] Care Team Providers Care Hourly Shift Manager Name Role Phone Eliza Mcfarland MD Primary Care Prov ider Reason for Visit * Reason Onset Date Comments Appointment 06/26/2023 /[facility] Encounter Details Date Type Department Care Team (Late st Contact Info) Description 06/26/2023 [facility]phone [facility] 10 [place], [place] [phone] Marina Wills MD 10 [place] [address] Appointment (/DEMOND) Allergies Active Allergy [...] (Moderna) 04/24/2022 Pneumococcal Conjugate Vacci ne, 20-valent ([id number]) 03/31/2023,07/04/2022 Seasonal Influenza, Quadriva lent Hd (Fluzone [...] to find an opening on 07/04 at [facility] with Dr. Leslie Borja DO. I [...] Encounter Endoscopy, [facility] [address] [place] [address] Marina Wills MD 10 [place] [address] Canceled (Patient Cancel-Illness) 07/04/2023 10:15 AM EST Appointment Endoscopy, [place] [id number] [place] [address] Leslie Borja DO 10 [place] [address] 09/18/2023 1:00 PM EST Telemedicine [facility] [address] [place] [address] Eliza Mcfarland MD 560 [place] [address] Scheduled Procedures Name Priority Associated Diagnoses Date/Ti me ESOPHAGOGASTRODUODENOSCOPY ( EGD), FLEXIBLE, TRANSORAL, DIAGNOSTIC Epigastric pain Health Maintenance Due Date Last Done Comments DISCUSS TOBACCO CESSATION (REFER TO SMARTSET #1951) 1970 Hepatitis B (1 of 3 - 3-dose series) 1970 HIV Screening 1985 Albumin/Creatinine Ratio 01/29/1988 Alpha-1 Antitrypsin 01/29/1988 Pap Smear 1991 Cervical Cancer Screening 01/29/2000 HPV/Co-Test 01/29/2000 Mammogram 2010 Cologuard 2015 Colonoscopy 2015 Colorectal Cancer Screening 2015 Fecal Occult Blood Test 2015 Sigmoidoscopy 2015 Depression Screening 04/30/2015 04/30/2014 *COPD SEVERITY VERIFIED BY PFT 12/26/2015 LUNG CANCER SCREENING - USE SMARTSET 29656 01/29/2020 GFR 02/13/2024 02/12/2023, 12/13, 12/26/2022, Additional [...] the patient have Health Care Power of Chuck Boner? No Code Status History Code Status Date [...] Advance Directives occurred with: Patient Care Teams Hourly Shift Manager Relationship Specialty Start Date End Date Eliza Mcfarland MD [address] [place] [address] PCP - General Family Medicine 12/09/21 documented as of this encounter
--- OUTSIDE RECORDS SUMMARY | 2023-07-14 03:41 | External Medical Summary | Summary of Care ---
Author Name Unknown Organization [facility] Address [address] [place] [address] Phone [phone] Care Team Providers Care Marking Machine Operator Name Role Phone Eliza Mcfarland MD Primary Care Prov ider Encounter Details Date Type Department Care Team (Latest Contact Info) Description 07/04/2023 11:59 PM [facility] Hospital Encounter Endoscopy, [facility] [address] [place], [place] [id number] Leslie Borja, DO [address] [place] [address] No Show Discharge Disposition: Home - Self Care Allergies Active Allergy Reactions Criticality Noted Date Comments Codeine Nausea/vomiting High 03/20/2014 Naloxone Nausea/vomiting 04/07/2022 Other reaction(s): rash/hives Tramadol Hives High 03/20/2014 Hydrocodone-Acetaminoph en Nausea/vomiting 12/09/2021 Hives and nausea documented as of this encounter (statuses as of 07/11/2023) Medications Medication Sig Dispensed Refills Start Date [...] as of this encounter (statuses as of 07/11/2023) Active Problems Problem Noted Date Diagnosed Date [...] as of this encounter (statuses as of 07/11/2023) Resolved Problems Problem Noted Date Diagnosed Date Resolved Date Prediabetes 12/26/2022 01/25/2023 Acute renal failure 12/21/2022 12/27/19 23 Sepsis 09/14/2022 12/26/2022 History of hepatitis C 07/25/202206/18 Hypertension 06/12/2022 12/26/2022 Chronic narcotic use 05/24/2017 Tobacco abuse disorder 05/23/201707/04 HTN, goal below 130/80 12/06/201412/26 TERMINATED MEDICATION USAGE AGREEMENT 07/08/2014 06/08/2022 Overview: Breech of narcotics agreement prior for oxycodone/hydrocodone 2013 New agreement for Clonazepam only entered on 04/07/22. Chronic hepatitis C virus infection 07/25/2022 Overview: Treated with Interferon HCV RNA negative as of 2016 documented as of this encounter (statuses as of 07/11/2023) Immunizations Name Administration Dates Next Due COVID-19, MRNA-LNP, 23-24, P F, 30 MCG/0.3 mL, 12 YRS AND ABOVE, IM (PFIZER-Comirnaty) 06/15/2023 Covid-19, Mrna, Lnp-s, Pf, B ivalent, 50 Mcg, IM, 12 yrs and above (Moderna) 04/24/2022 Pneumococcal Conjugate Vacci ne, 20-valent ([id number]) 03/31/2023,07/04/2022 Seasonal Influenza, Quadriva lent Hd (Fluzone [...] No 12/21/2022 documented as of this encounter Plan of Treatment Upcoming Encounters Date Type Department Care Team (Late st Contact Info) Description 09/18/2023 1:00 PM EST Telemedicine [facility] [address] [place] [address] Eliza Mcfarland MD [address] [place] [address] Scheduled Procedures Name Priority Associated Diagnoses Date/Ti me ESOPHAGOGASTRODUODENOSCOPY ( EGD), FLEXIBLE, TRANSORAL, DIAGNOSTIC Epigastric pain Health Maintenance Due Date Last Done Comments DISCUSS TOBACCO CESSATION (REFER TO SMARTSET #6016) 1970 Hepatitis B (1 of 3 - 3-dose series) 1970 HIV Screening 1985 Albumin/Creatinine Ratio 01/29/1988 Alpha-1 Antitrypsin 01/29/1988 Pap Smear 1991 Cervical Cancer Screening 01/29/2000 HPV/Co-Test 01/29/2000 Mammogram 2010 Cologuard 2015 Colonoscopy 2015 Colorectal Cancer Screening 2015 Fecal Occult Blood Test 2015 Sigmoidoscopy 2015 Depression Screening 04/30/2015 04/30/2014 *COPD SEVERITY VERIFIED BY PFT 12/26/2015 LUNG CANCER SCREENING - USE SMARTSET [id number] 01/29/2020 GFR 02/13/2024 02/12/2023, 12/13, 12/26/2022, Additional [...] the patient have Health Care Power of Supervisor Audit Clerks? No Code Status History Code Status Date [...] Advance Directives occurred with: Patient Care Teams Marking Machine Operator Relationship Specialty Start Date End Date Eliza Mcfarland MD [address] [place] [address] PCP - General Family Medicine 12/09/21 documented as of this encounter
--- OUTSIDE RECORDS SUMMARY | 2023-07-14 03:41 | External Medical Summary | Summary of Care ---
Author Name Unknown Organization [facility] Address [address] [facility] [place] [address] Phone [phone] Care Team Providers Care Legal Job Titles Name Role Phone Eliza Mcfarland MD Primary Care Prov ider Reason for Visit * Reason Onset Date Comments Appointment 06/26/2023 Encounter Details Date Type Department Care Team (Late st Contact Info) Description 06/26/2023 Telephone [facility] 10 [place], [place] [phone] Marina Wills MD 10 [place], [place] [phone] Appointment Allergies Active Allergy Reactions Criticality Noted Date [...] (Moderna) 04/24/2022 Pneumococcal Conjugate Vacci ne, 20-valent ([id number]) 03/31/2023,07/04/2022 Seasonal Influenza, Quadriva lent Hd (Fluzone [...] Encounter - Camilla Carlton NCMA - 06/26/2023 2:[address] [facility] staff counsel notified of date * Telephone Encounter - Camilla Carlton NCMA - 06/26/2023 10:57 AM EST I was able to find an opening on 07/[address] [facility] with Dr. Leslie Borja DO. I did [...] 06/28/2023 10:00 AM EST Hospital Encounter Endoscopy, [facility] [address] [place] [address] Marina Wills MD 10 [place] [address] Canceled (Patient Cancel-Illness) 07/04/2023 10:15 AM EST Appointment Endoscopy, [facility] [address] [place] [address] Leslie Borja DO 10 [place] [address] 09/18/2023 1:00 PM EST Telemedicine [facility] [address] [place] [address] Eliza Mcfarland MD [address] [place] [address] Scheduled Procedures Name Priority Associated Diagnoses Date/Ti me ESOPHAGOGASTRODUODENOSCOPY ( EGD), FLEXIBLE, TRANSORAL, DIAGNOSTIC Epigastric pain Health Maintenance Due Date Last Done Comments DISCUSS TOBACCO CESSATION (REFER TO SMARTSET #0855) 1970 Hepatitis B (1 of 3 - 3-dose series) 1970 HIV Screening 1985 Albumin/Creatinine Ratio 01/29/1988 Alpha-1 Antitrypsin 01/29/1988 Pap Smear 1991 Cervical Cancer Screening 01/29/2000 HPV/Co-Test 01/29/2000 Mammogram 2010 Cologuard 2015 Colonoscopy 2015 Colorectal Cancer Screening 2015 Fecal Occult Blood Test 2015 Sigmoidoscopy 2015 Depression Screening 04/30/2015 04/30/2014 *COPD SEVERITY VERIFIED BY PFT 12/26/2015 LUNG CANCER SCREENING - USE SMARTSET [id number] 01/29/2020 GFR 02/13/2024 02/12/2023, 12/13, 12/26/2022, Additional [...] the patient have Health Care Power of Cell Room Supervisor? No Code Status History Code Status [...] Advance Directives occurred with: Patient Care Teams Legal Job Titles Relationship Specialty Start Date End Date Eliza Mcfarland MD [address] [place] [address] PCP - General Family Medicine 12/09/21 documented as of this encounter
--- OUTSIDE RECORDS SUMMARY | 2023-07-14 03:41 | External Medical Summary | Summary of Care ---
Author Name Unknown Organization [facility] Address [address] [place] [address] Phone [phone] Care Team Providers Care Car Whacker Name Role Phone Eliza Mcfarland MD Primary Care Prov ider Reason for Visit * Reason Onset Date Comments Procedure 06/26/2023 Encounter Details Date Type Department Care Team (Late st Contact Info) Description 06/26/2023 Telephone OR [facility], Operating Room, [facility] 1st Floor [address] [place] [address] Marina Wills MD [address] [place] [address] Procedure Allergies Active Allergy Reactions Criticality Noted Date [...] (Moderna) 04/24/2022 Pneumococcal Conjugate Vacci ne, 20-valent ([id number]) 03/31/2023,07/04/2022 Seasonal Influenza, Quadriva lent Hd (Fluzone [...] Carlton NCMA - 06/26/2023 2:03 PM EST Noted thank you documented in this encounter Plan of Treatment Upcoming Encounters Date Type Department Care Team (Latest Contact Info) Description 06/28/2023 10:00 AM EST Hospital Encounter Endoscopy, [facility] [address] [place] [address] Marina Wills MD [address] [place] [address] Canceled (Patient Cancel-Illness) 07/04/2023 10:15 AM EST Appointment Endoscopy, [facility] [address] [place] [address] Leslie Borja, 10 [place] [address] 09/18/2023 1:00 PM EST Telemedicine [facility] 560 [place] [address] Eliza Mcfarland MD [address] [place] [address] Scheduled Procedures Name Priority Associated Diagnoses Date/Ti [...] 12/26/2015 LUNG CANCER SCREENING - USE SMARTSET [id number] 01/29/2020 GFR 02/13/2024 02/12/2023, 12/13, 12/26/2022, Additional [...] the patient have Health Care Power of Petroleum Refinery Worker? No Code Status History Code Status Date [...] Advance Directives occurred with: Patient Care Teams Car Whacker Relationship Specialty Start Date End Date Eliza Mcfarland MD [address] [place] [address] PCP - General Family Medicine 12/09/21 documented as of this encounter
--- OUTSIDE RECORDS SUMMARY | 2023-07-14 03:41 | External Medical Summary | Summary of Care ---
Author Name Unknown Organization [facility] Address [address] [place] [address] Phone [phone] Care Team Providers Care Mold Puller Name Role Phone Eliza Mcfarland MD Primary Care Prov ider Reason for Visit * Reason Onset Date Comments Preop Pt Assessment 06/25/2023 Encounter Details Date Type Department Care Team (Late st Contact Info) Description 06/25/2023 Telephone Pre Surgery, [facility] [address] [place] [address] Marina Wills MD 10 [place] [address] Preop Pt Assessment Allergies Active Allergy Reactions Criticality Noted Date Comments Codeine Nausea/vomiting High 03/20/2014 Naloxone Nausea/vomiting 04/07/2022 Other reaction(s): rash/hives Tramadol Hives High 03/20/2014 Hydrocodone-Acetaminoph en Nausea/vomiting 12/09/2021 Hives and nausea documented as of this encounter (statuses as of 07/13/2023) Medications Medication Sig Dispensed Refills Start Date [...] as of this encounter (statuses as of 07/13/2023) Active Problems Problem Noted Date Diagnosed Date [...] as of this encounter (statuses as of 07/13/2023) Resolved Problems Problem Noted Date Diagnosed Date [...] as of this encounter (statuses as of 07/13/2023) Immunizations Name Administration Dates Next Due COVID-19, MRNA-LNP, 23-24, P F, 30 MCG/0.3 mL, 12 YRS AND ABOVE, IM (PFIZER-Comirnaty) 06/15/2023 Covid-19, Mrna, Lnp-s, Pf, B ivalent, 50 Mcg, IM, 12 yrs and above (Moderna) 04/24/2022 Pneumococcal Conjugate Vacci ne, 20-valent ([id number]) 03/31/2023,07/04/2022 Seasonal Influenza, Quadriva lent Hd (Fluzone [...] Info) Description 09/18/2023 1:00 PM EST Telemedicine [facility] [address] [place] [address] Eliza Mcfarland MD [address] [place] [address] Scheduled Procedures Name Priority Associated Diagnoses Date/Ti [...] 12/26/2015 LUNG CANCER SCREENING - USE SMARTSET [id number] 01/29/2020 GFR 02/13/2024 02/12/2023, 12/13, 12/26/2022, Additional [...] the patient have Health Care Power of Color Paste Mixer? No Code Status History Code Status Date [...] Advance Directives occurred with: Patient Care Teams Mold Puller Relationship Specialty Start Date End Date Eliza Mcfarland MD [address] [place] [address] PCP - General Family Medicine 12/09/21 documented as of this encounter
--- OUTSIDE RECORDS SUMMARY | 2023-07-14 03:42 | External Medical Summary | Summary of Care ---
Author Name Unknown Organization [facility] Address [address] [place] [address] Phone [phone] Care Team Providers Care Information Security Engineer Name Role Phone Eliza Mcfarland MD Primary Care Prov ider Reason for Visit * Reason Onset Date Comments case management 04/06/2023 Encounter Details Date Type Department Care Team Description 04/06/2023 Stunt Man Telephone [address] [phone] Isabel Christensen, RN [address] [place] [address] case management Allergies Active Allergy Reactions Severity Noted Date Comments Codeine Nausea/vomiting High 03/20/2014 Eggs Or Egg-Derived Products Nausea/vomiting 01/23/2023 Naloxone Nausea/vomiting 04/07/2022 Other reaction(s): rash/hives Tramadol Hives High 03/20/2014 Hydrocodone-Acetaminophen Nausea/vomiting 12/09 Hives and nausea documented as of this encounter (statuses as of 04/06/2023) Medications Medication Sig Dispensed Refills Start Date End Date Status Polyethylene Glycol 3350 17 GM/SCOOP Oral Powder (MiraLax) Take by mouth 17 g once a week . Dissolve one heaping tablespoon in 8 ounces of water or juice. 225 g 3 06/08/2022 Active Syringe 25G X 1" 3 ML Use to administer Tigan solution as needed 50 Each 0 09/06/2022 Active Aprepitant 125 MG Oral Capsule (Emend) TAKE ONE CAPSULE BY MOUTH ONCE FOR 1 DOSE WITH ONSET OF VOMITING 10 Capsule 0 01/17/2023 Active QUEtiapine Fumarate 200 MG Oral Tablet (SEROquel) Take 1- 1.5 tablets nightly at bedtime 60 Tablet 5 01/23/2023 Active Aprepitant 80 MG Oral Capsule (Emend) [...] before bedtime. 90 Tablet 3 01/23/2023 Active Ventolin HFA 108 (90 Base) MCG/ACT Inhalation Aerosol Solution Inhale 2 Puffs by mouth every 4 hours as needed for Shortness of Breath or Wheezing. 18 g 2 01/23/2023 Active Sucralfate 1 GM/10ML Oral Suspension (Carafate) Take 10 mL by mouth in the morning and 10 mL at noon and 10 mL in the evening and 10 mL before bedtime. 420 mL 5 01/23/2023 Active Famotidine 20 MG Oral Tablet (Pepcid) Take 1 Tablet by mouth in the morning and 1 Tablet before bedtime. 180 Tablet 3 01/23/2023 Active clonazePAM 1 MG Oral Tablet (KlonoPIN) Take 1 Tablet by mouth in the morning and 1 Tablet before bedtime. 60 Tablet 3 01/23/2023 Active Meclizine HCl 25 MG Oral Tablet (Antivert) Take 1-2 Tablets by mouth 2 times a day as needed for Nausea. 60 Tablet 1 02/06/2023 Active oxyCODONE-Acetami nophen 10-325 MG Oral Tablet (Percocet)Indicat ions:Chronic pain syndrome Take 1 Tablet by mouth every 8 hours as needed for Pain, Moderate or Pain, Severe. Do not start before March 01, 2023. 90 Tablet 0 03/01/2023 Active oxyCODONE-Acetami nophen 10-325 MG Oral Tablet (Percocet)Indicat ions:Chronic pain syndrome Take 1 Tablet by mouth every 8 hours as needed for Pain, Moderate or Pain, Severe. Do not start before March 30, 2023. 90 Tablet 0 03/30/2023 Active hydrALAZINE HCl 25 MG Oral Tablet (Apresoline) Take 2 Tablets by mouth 2 times a day. For blood pressure 180 Tablet 2 02/12/2023 Active Aprepitant 40 MG Oral Capsule 1 capsule once daily on Day 2 and Day 3 of vomiting 10 Capsule 4 03/05/2023 Active Prochlorperazine Maleate 10 MG Oral Tablet (Compazine) Take 1 Tablet by mouth every 6 hours as needed for Nausea. 30 Tablet 2 03/05/2023 Active Hospital, Clinic, or Other Facility Administered Medication Ordered Dose Route Frequency Start Date End Date Status vitamin b-12 (Cyanocobalamin) inj 1,000 mcgIndications:Acute nausea with nonbilious vomiting,B12 deficiency 1000 mcg IM [id number] 07/11/2022 06/12/2023 A ctive documented as of this encounter (statuses as of 04/06/2023) Active Problems Problem Noted Date History of appendectomy 12/26/2022 COPD, severe 12/26/2022 Intractable nausea and vomiting 12/22/19 23 GEORGINA (acute kidney injury) 09/14/2022 Acute hyponatremia 09/14/2022 History of hepatitis C 07/25/2022 JESSIE (generalized anxiety disorder) 07/04 Abdominal pain 06/12/2022 Nausea 06/12/2022 Gastroesophageal reflux disease 12/10/19 22 Hypertensive urgency 05/23/2017 Recurrent generalized abdominal pain 06/2017 Nausea, vomiting and diarrhea 12/06/2014 Alkalosis, metabolic 12/06/2014 Chronic back pain 12/06/2014 Narcotic dependence 12/06/2014 HTN, goal below 140/90 03/20/2014 Lumbar degenerative disc disease 014 Migraine 03/20/2014 Chronic airway obstruction, not elsewher e classified Lumbago Other psoriasis Dermatophytosis of foot documented as of this encounter (statuses as of 04/06/2023) Resolved Problems Problem Noted Date Resolved Date Prediabetes 12/26/2022 01/25/2023 Acute renal failure 12/21/2022 12/26/2022 Sepsis 09/14/2022 12/26/2022 Hypertension 06/12/2022 12/26/2022 Chronic narcotic use 05/24/2017 07/04/2022 Tobacco abuse disorder 05/23/2017 2 HTN, goal below 130/80 12/06/2014 3 TERMINATED MEDICATION USAGE AGREEMENT 07/08/2014 06/08/2022 Overview: Breech of narcotics agreement prior for oxycodone/hydrocodone 2013 New agreement for Clonazepam only entered on 04/07/22. Chronic hepatitis C virus infection 07/25/2022 Overview: Treated with Interferon HCV RNA negative as of 2016 documented as of this encounter (statuses as of 04/06/2023) Immunizations Name Administration Dates Next Due Covid-19, Mrna, Lnp-s, Pf, B ivalent, 50 Mcg, IM, 12 yrs and above (Moderna) 04/24/2022 Pneumococcal Conjugate Vacci ne, 20-valent ([id number]) 03/31/2023,07/04/2022 Seasonal Influenza, Quadriva lent Hd (Fluzone [...] = 0.6 oz pur e alcohol) Sex Assigned at Date Recorded Female 05/16/2022 11:28 AM EDT Job Start Date Occupation Industry [...] encounter Miscellaneous Notes * Telephone Encounter - Isabel Christensen RN - 04/06/2023 2:46 PM EDT Follow-up Routine Attempted Phone Call Third Attempt Call Outcome Unable to Leave Message Plan To send letter documented in this encounter Plan of Treatment Upcoming Encounters Date Type Specialty Care Team Description 04/13/2023 Telemedicine Family Medicine Eliza Mcfarland MD [address] [place] [address] 04/19/2023 Imaging Radiology Scheduled Procedures Name Priority Associated Diagnoses Date/Ti me ESOPHAGOGASTRODUODENOSCOPY ( EGD), FLEXIBLE, TRANSORAL, DIAGNOSTIC Epigastric pain Health Maintenance Due Date Last Done Comments DISCUSS TOBACCO CESSATION (REFER TO SMARTSET #5576) 1970 Hepatitis B (1 of 3 - 3-dose series) 1970 HIV Screening 1985 Albumin/Creatinine Ratio 01/29/1988 Alpha-1 Antitrypsin 01/29/1988 Pap Smear 1991 Cervical Cancer Screening 01/29/2000 HPV/Co-Test 01/29/2000 Mammogram 2010 Cologuard 2015 Colonoscopy 2015 Colorectal Cancer Screening 2015 Fecal Occult Blood Test 2015 Sigmoidoscopy 2015 Depression Screening, Annual for Pts 12 and Over 04/30/2015 04/30/2014 *COPD SEVERITY VERIFIED BY PFT 12/26/2015 LUNG CANCER SCREENING - USE SMARTSET [id number] 01/29/2020 GFR 02/13/2024 02/12/2023, 12/13, 12/26/2022, Additional history exists O2 ASSESSMENT COMPLETED IN PAST YEAR FOR COPD 02/13/2024 02/12/2023 Diabetes Screening 02/12/2026 02/12/2023, 0 01/09/2023, 12/26/2022, Additional history exists Lipid Panel 09/15/2027 09/15/2022, 05/14, 03/20/2014 DTaP,Tdap,and Td Vaccines (2 - Td or Tdap) 09/21/2032 09/21/2022 Zoster Vaccines Completed 04/11/2022, 01/07/2021 COVID-19 Vaccine Completed 04/24/2022 Hepatitis C Screening Completed 12/26/2022 , 12/26/2022, 12/26/2022, Additional history exists Influenza Vaccine (FLU shot) Completed , 04/11/2022, 06/02/2020, Additional history exists Pneumococcal Vaccine: Pediatrics (0 to 5 Years) and At-Risk Patients (6 to 64 Years) Completed 03/31/2023, 07/04/2022 GARDASIL-HPV IMMUNIZATION SERIES Aged Out No longer [...] the patient have Health Care Power of Preflight Inspector? No Code Status History Code Status Date [...] Advance Directives occurred with: Patient Care Teams Information Security Engineer Relationship Specialty Start Date End Date Eliza Mcfarland MD [address] [place] [address] PCP - General Family Medicine 12/09/21 documented as of this encounter
--- OUTSIDE RECORDS SUMMARY | 2023-07-14 03:42 | External Medical Summary | Summary of Care ---
Author Name Unknown Organization [facility] Address [address] [facility] [place] [address] Phone [phone] Care Team Providers Care Housing Quality Standard Inspector Name Role Phone Guilherme Mcfarland MD Primary Care Prov ider Reason for Visit * Reason Onset Date Comments Appointment 06/19/2023 egd Encounter Details Date Type Department Care Team (Late st Contact Info) Description 06/19/2023 [facility]phone [facility] [address] [place] [address] Margaret Ling MD [address] [place] [address] Appointment (egd) Allergies Active Allergy Reactions Criticality [...] (Moderna) 04/24/2022 Pneumococcal Conjugate Vacci ne, 20-valent ([id number]) 03/31/2023,07/04/2022 Seasonal Influenza, Quadriva lent Hd (Fluzone [...] AM EST Indication for study Vomiting INSURANCE [facility] insurance NOT accepted by [employer] Ren[facility] Advantra and Aetna Medicare are accepted ONLY in [place] and ONLY with providers Adriana Sanabria Fabian, [...] extended prep) Preassessment Nurse Status: 06/28/23 at [facility]. Instructions sent to patient through [employer]. * Telephone Encounter - Astrid Padilla - 06/19/2023 8:36 AM EST Spoke with patient, she would like to either go to [facility] or [facility]. Her last EGD was at [facility]. Patient does not meet GEM criteria due to severe COPD and chronic airway obstruction. If patient meets criteria, please schedule patient at [facility]. Also speaking with WASHING MACHINE INSTALLER at [facility] to see if she meets criteria there also. * Telephone Encounter - Sun Luciano OSA - 06/19/2023 8:12 AM EST OUTPATIENT REFERRAL REQUEST UPPER ENDOSCOPY GI REFERRAL OP Name: Charleen Mathis Birthdate: 1970 Patient's Address: [address] [address] Home: Work: Patient Preference: Referral ID: [id number] Referred To: UPPER ENDOSCOPY GI REFERRAL OP Insurance Verification Rep: Provider Specialty: Gastroenterology Priority: Within 10 days (routine) Visit Coverage: [facility] PLAN [facility] Primary Payor: [facility] Appointment Info: Date: Time: Referral Type: Ancillary Services [] Expiration Date: Number of Visits Requested: 999 Associated Diagnosis: Cyclic vomiting syndrome (R11.15) Gastroesophageal reflux disease, unspecified whether esophagitis present (K21.9) Problem/Desired Service from Insurance Verification Rep: Upper Endoscopy ASGE Guidelines Shahid's esophagus surveillance and Persistent vomiting of unknown cause ADDITIONAL INFORMATION 1. Is the patient on Coumadin? No 2. Is the patient on Pradaxa? No Order Specific Questions: Referral Priority: Within 10 days (routine) Where should this appointment be scheduled? [facility] Return Report and Study Results to the Requesting Physician & the PCP PCP: GUILHERME MCFARLAND Code #: [id number] Address: [address] [place] [id number] Date: Jun 18, 2023 ................................................................................ ............................................................................ Requesting Physician: Code #: Address: [address] [place] [id number] Date: Jun 18, 2023 Authorized by: Guilherme Mcfarland MD * Administrative Questions: [phone] or [phone] documented in this encounter Plan of Treatment Upcoming Encounters Date Type Department Care Team (Late st Contact Info) Description 06/28/2023 10:15 AM EST Appointment Endoscopy, [facility] [address] [place] [address] Marina Wills MD [address] [place] [address] 09/18/2023 1:00 [place] [address] Guilherme Mcfarland MD [address] [place] [address] Scheduled Procedures Name Priority Associated Diagnoses Date/Ti me ESOPHAGOGASTRODUODENOSCOPY ( EGD), FLEXIBLE, TRANSORAL, DIAGNOSTIC Epigastric pain Health Maintenance Due Date Last Done Comments DISCUSS TOBACCO CESSATION (REFER TO SMARTSET #1521) 1970 Hepatitis B (1 of 3 - 3-dose series) 1970 HIV Screening 1985 Albumin/Creatinine Ratio 01/29/1988 Alpha-1 Antitrypsin 01/29/1988 Pap Smear 1991 Cervical Cancer Screening 01/29/2000 HPV/Co-Test 01/29/2000 Mammogram 2010 Cologuard 2015 Colonoscopy 2015 Colorectal Cancer Screening 2015 Fecal Occult Blood Test 2015 Sigmoidoscopy 2015 Depression Screening 04/30/2015 04/30/2014 *COPD SEVERITY VERIFIED BY PFT 12/26/2015 LUNG CANCER SCREENING - USE SMARTSET [id number] 01/29/2020 GFR 02/13/2024 02/12/2023, 12/13, 12/26/2022, Additional [...] the patient have Health Care Power of Contract Technician? No Code Status History Code Status Date [...] Advance Directives occurred with: Patient Care Teams Housing Quality Standard Inspector Relationship Specialty Start Date End Date Guilherme Mcfarland MD [address] [place] [address] PCP - General Family Medicine 12/09/21 documented as of this encounter
--- OUTSIDE RECORDS SUMMARY | 2023-07-14 03:42 | External Medical Summary | Summary of Care ---
Author Name Unknown Organization [facility] Address [address] [place] [address] Phone [phone] Care Team Providers Care Shipping Checker Name Role Phone Eliza Mcfarland MD Primary Care Prov ider Reason for Visit * Reason Onset Date Comments case management 05/30/2023 Encounter Details Date Type Department Care Team Description 05/30/2023 Furnace Setter Telephone Care Coordination [address] [place] [address] Kajal Elam LSW [address] [place], [place] [phone] case management Allergies Active Allergy Reactions Severity Noted Date Comments Codeine Nausea/vomiting High 03/20/2014 Eggs Or Egg-Derived Products Nausea/vomiting 01/23/2023 Naloxone Nausea/vomiting 04/07/2022 Other reaction(s): rash/hives Tramadol Hives High 03/20/2014 Hydrocodone-Acetaminophen Nausea/vomiting 12/09 Hives and nausea documented as of this encounter (statuses as of 05/30/2023) Medications Medication Sig Dispensed Refills Start Date [...] for Nausea. 30 Tablet 2 03/05/2023 Active oxyCODONE-Acetami nophen 10-325 MG Oral Tablet (Percocet)Indicat ions:Chronic pain syndrome Take 1 Tablet by mouth every 6 hours as needed for Pain, Moderate or Pain, Severe. 120 Tablet 0 05/01/2023 Active clonazePAM 1 MG Oral Tablet (KlonoPIN) Take 1 Tablet by mouth in the morning and 1 Tablet before bedtime. 60 Tablet 3 05/01/2023 Active Hospital, Clinic, or Other Facility Administered Medication Ordered Dose Route Frequency Start Date End Date Status vitamin b-12 (Cyanocobalamin) inj 1,000 mcgIndications:Acute nausea with nonbilious vomiting,B12 deficiency 1000 mcg IM [id number] 07/11/2022 06/12/2023 A ctive documented as of this encounter (statuses as of 05/30/2023) Active Problems Problem Noted Date Cyclic vomiting syndrome 05/01/2023 Intractable vomiting 05/01/2023 [...] as of this encounter (statuses as of 05/30/2023) Resolved Problems Problem Noted Date Resolved Date [...] as of this encounter (statuses as of 05/30/2023) Immunizations Name Administration Dates Next Due Covid-19, Mrna, Lnp-s, Pf, B ivalent, 50 Mcg, IM, 12 yrs and above (Moderna) 04/24/2022 Pneumococcal Conjugate Vacci ne, 20-valent ([id number]) 03/31/2023,07/04/2022 Seasonal Influenza, Quadriva lent Hd (Fluzone [...] encounter Miscellaneous Notes * Telephone Encounter - PARTH Randolph - 05/30/2023 1:28 PM EDT Images from the original note were not included. [facility] Follow-up Routine Attempted Phone Call Third Attempt Call Outcome Left Voicemail/Message Plan Electronic outreach (Secure EHR portal, Secure text, etc.) Kajal SUMMERS, [facility] Furnace Setter (Pronouns: she, her, hers) Care Coordination Integration home child care provider documented in this encounter Plan of Treatment Upcoming Encounters Date Type Specialty Care Team Description 06/18/2023 Office Visit Family Medicine Eliza Mcfarland MD [address] [place] [address] Scheduled Procedures Name Priority Associated Diagnoses Date/Ti me ESOPHAGOGASTRODUODENOSCOPY ( EGD), FLEXIBLE, TRANSORAL, DIAGNOSTIC Epigastric pain Health Maintenance Due Date Last Done Comments DISCUSS TOBACCO CESSATION (REFER TO SMARTSET #6413) 1970 Hepatitis B (1 of 3 - 3-dose series) 1970 HIV Screening 1985 Albumin/Creatinine Ratio 01/29/1988 Alpha-1 Antitrypsin 01/29/1988 Pap Smear 1991 Cervical Cancer Screening 01/29/2000 HPV/Co-Test 01/29/2000 Mammogram 2010 Cologuard 2015 Colonoscopy 2015 Colorectal Cancer Screening 2015 Fecal Occult Blood Test 2015 Sigmoidoscopy 2015 Depression Screening 04/30/2015 04/30/2014 *COPD SEVERITY VERIFIED BY PFT 12/26/2015 LUNG CANCER SCREENING - USE SMARTSET [id number] 01/29/2020 COVID-19 Vaccine ( - 2022- season) 2023 04/24/2022 GFR 02/13/2024 02/12/2023, 12/13, 12/26/2022, Additional history [...] the patient have Health Care Power of Attending Pathologist? No Code Status History Code Status Date [...] Advance Directives occurred with: Patient Care Teams Shipping Checker Relationship Specialty Start Date End Date Eliza Mcfarland MD [address] [place] [address] PCP - General Family Medicine 12/09/21 documented as of this encounter
--- OUTSIDE RECORDS SUMMARY | 2023-07-14 03:42 | External Medical Summary | Summary of Care ---
Author Name Unknown Organization [facility] Address [address] [place] [address] Phone [phone] Care Team Providers Care Strand Forming Machine Operator Name Role Phone Eliza Mcfarland MD Primary Care Prov ider Reason for Visit * Reason Onset Date Comments Follow Up 02/09/2023 Assisting CM wit h Calls Encounter Details Date Type Department Care Team Description 02/09/2023 Telephone Care Coordination [address] [place], [place] [phone] Patricia Gaines [facility] [address] [place], [place] [phone] Follow Up (Assisting CM with Calls) Allergies Active Allergy Reactions Severity Noted Date Comments Codeine Nausea/vomiting High 03/20/2014 Eggs Or Egg-Derived Products Nausea/vomiting 01/23/2023 Naloxone Nausea/vomiting 04/07/2022 Other reaction(s): rash/hives Tramadol Hives High 03/20/2014 Hydrocodone-Acetaminophen Nausea/vomiting 12/09 Hives and nausea documented as of this encounter (statuses as of 05/11/2023) Medications Medication Sig Dispensed Refills Start Date [...] 30, 2023. 90 Tablet 0 03/30/2023 Active Hospital, Clinic, or Other Facility Administered Medication Ordered Dose Route Frequency Start Date End Date Status vitamin b-12 (Cyanocobalamin) inj 1,000 mcgIndications:Acute nausea with nonbilious vomiting,B12 deficiency 1000 mcg IM [id number] 07/11/2022 06/12/2023 A ctive documented as of this encounter (statuses as of 05/11/2023) Active Problems Problem Noted Date Cyclic vomiting syndrome 05/01/2023 Intractable vomiting 05/01/2023 History of appendectomy 12/26/2022 COPD, severe 12/26/2022 Intractable nausea and vomiting 12/22/19 23 GEORGINA (acute kidney injury) 09/14/2022 Acute hyponatremia 09/14/2022 History of hepatitis C 07/25/2022 JESSIE (generalized anxiety disorder) 07/04 Abdominal pain 06/12/2022 Nausea 06/12/2022 Gastroesophageal reflux disease 12/10/19 Hypertensive urgency 05/23/2017 Recurrent generalized abdominal pain 06/2017 Nausea, vomiting and diarrhea 12/06/2014 Alkalosis, metabolic 12/06/2014 Chronic back pain 12/06/2014 Narcotic dependence 12/06/2014 HTN, goal below 140/90 03/20/2014 Lumbar degenerative disc disease 014 Migraine 03/20/2014 Chronic airway obstruction, not elsewher e classified Lumbago Other psoriasis Dermatophytosis of foot documented as of this encounter (statuses as of 05/11/2023) Resolved Problems Problem Noted Date Resolved Date Prediabetes 12/26/2022 01/25/2023 Acute renal failure 12/21/2022 12/26/2022 Sepsis 09/14/2022 12/26/2022 Hypertension 06/12/2022 12/26/2022 Chronic narcotic use 05/24/2017 07/04/2022 Tobacco abuse disorder 05/23/2017 HTN, goal below 130/80 12/06/2014 3 TERMINATED MEDICATION USAGE AGREEMENT 07/08/2014 06/08/2022 Overview: Breech of narcotics agreement prior for oxycodone/hydrocodone 2013 New agreement for Clonazepam only entered on 04/07/22. Chronic hepatitis C virus infection 07/25/2022 Overview: Treated with Interferon HCV RNA negative as of 2016 documented as of this encounter (statuses as of 05/11/2023) Immunizations Name Administration Dates Next Due Covid-19, Mrna, Lnp-s, Pf, B ivalent, 50 Mcg, IM, 12 yrs and above (Moderna) 04/24/2022 Pneumococcal Conjugate Vacci ne, 20-valent ([id number]) 07/04/2022 Seasonal Influenza, Quadriva lent, No Preserve, Mdck [...] (15 years old or older) No 12/22/19 23 Cognitive Status Response Date of Assessm ent Because of a physical, menta l, or emotional condition, do you have serious difficulty concentrating, remembering, or making decisions? (5 years old or older No 12/21/2022 documented as of this encounter Miscellaneous Notes * Telephone Encounter - [facility] - 02/09/2023 11:35 AM EDT VI Survey 2 In the last month have you had increased or new trouble breathing, or has wheezing gotten worse? No. If she's outside mowing she ran out of breath (with exertion sob) In the last month have you had a NEW or worsening cough with mucous? no In the last month have you had any symptoms of cold or had a fever? no In the last month have you been using your inhalers more than usual? Just the one. Albuterol has been using more. In the last month have you had to start sleeping sitting up in a chair? No but doesn't sleep at all. Not sure if it is due to the breathing. In the last month have you had new or increased difficulty in breathing with normal activities suchas bathing or dressing? no Do you use oxygen? yes No- move on to next question Yes- are you wearing as ordered or have you increased use? At night only. After mowing grass yesterday she had to put the O2 on. She didn't get a chance to finish mowing In the last month have you been eating less then you normally do? Picky eater CAT Assessment completed in [facility]? No CAT Score: documented in this encounter Plan of Treatment Upcoming Encounters Date Type Specialty Care Team Description 06/18/2023 Office Visit Family Medicine Eliza Mcfarland MD [address] [place] [address] Scheduled Procedures Name Priority Associated Diagnoses Date/Ti me ESOPHAGOGASTRODUODENOSCOPY ( EGD), FLEXIBLE, TRANSORAL, DIAGNOSTIC Epigastric pain Health Maintenance Due Date Last Done Comments DISCUSS TOBACCO CESSATION (REFER TO SMARTSET #5103) 1970 Hepatitis B (1 of 3 - 3-dose series) 1970 HIV Screening 1985 Albumin/Creatinine Ratio 01/29/1988 Alpha-1 Antitrypsin 01/29/1988 Pap Smear 1991 Cervical Cancer Screening 01/29/2000 HPV/Co-Test 01/29/2000 Mammogram 2010 Cologuard 2015 Colonoscopy 2015 Colorectal Cancer Screening 2015 Fecal Occult Blood Test 2015 Sigmoidoscopy 2015 Depression Screening 04/30/2015 04/30/2014 *COPD SEVERITY VERIFIED BY PFT 12/26/2015 LUNG CANCER SCREENING - USE SMARTSET [id number] 01/29/2020 GFR 02/13/2024 02/12/2023, 12/13, 12/26/2022, Additional [...] the patient have Health Care Power of Infusion Therapy Nurse? No Code Status History Code Status Date [...] Advance Directives occurred with: Patient Care Teams Strand Forming Machine Operator Relationship Specialty Start Date End Date Eliza Mcfarland MD [address] [place] [address] PCP - General Family Medicine 12/09/21 documented as of this encounter
--- OUTSIDE RECORDS SUMMARY | 2023-07-14 03:42 | External Medical Summary | Summary of Care ---
Author Name Unknown Organization [facility] Address [address] [place] [address] Phone [phone] Care Team Providers Care Criminal Justice Program Director Name Role Phone Eliza Mcfarland MD Primary Care Prov ider Reason for Visit * Reason Onset Date Comments case management 05/08/2023 Encounter Details Date Type Department Care Team Description 05/08/2023 Japanese Interpreter Telephone Care Coordination [address] [place] [address] Kajal Elam LSW [address], [place] [id number] case management Allergies Active Allergy Reactions Severity Noted Date Comments Codeine Nausea/vomiting High 03/20/2014 Eggs Or Egg-Derived Products Nausea/vomiting 01/23/2023 Naloxone Nausea/vomiting 04/07/2022 Other reaction(s): rash/hives Tramadol Hives High 03/20/2014 Hydrocodone-Acetaminophen Nausea/vomiting 12/09 Hives and nausea documented as of this encounter (statuses as of 05/08/2023) Medications Medication Sig Dispensed Refills Start Date [...] with nonbilious vomiting,B12 deficiency 1000 mcg IM [id number] 07/11/2022 06/12/2023 A ctive documented as of this encounter (statuses as of 05/08/2023) Active Problems Problem Noted Date Cyclic vomiting [...] as of this encounter (statuses as of 05/08/2023) Resolved Problems Problem Noted Date Resolved Date [...] as of this encounter (statuses as of 05/08/2023) Immunizations Name Administration Dates Next Due Covid-19, Mrna, Lnp-s, Pf, B ivalent, 50 Mcg, IM, 12 yrs and above (Moderna) 04/24/2022 Pneumococcal Conjugate Vacci ne, 20-valent ([id number]) 03/31/2023,07/04/2022 Seasonal Influenza, Quadriva lent Hd (Fluzone [...] * Telephone Encounter - PARTH Randolph - 05/08/2023 11:32 AM EDT [facility]2 Follow-up Routine Attempted Phone Call Second Attempt Call Outcome Unable to Leave Message Plan To attempt another outreach [facility] Japanese Interpreter (Pronouns: she, her, hers) Care Coordination Integration home stereo equipment installer documented in this encounter Plan of Treatment Upcoming Encounters Date Type Specialty Care Team Description 06/18/2023 Office Visit Family Medicine Eliza Mcfarland MD [address] [place] [address] Scheduled Procedures Name Priority Associated Diagnoses Date/Ti me ESOPHAGOGASTRODUODENOSCOPY ( EGD), FLEXIBLE, TRANSORAL, DIAGNOSTIC Epigastric pain Health Maintenance Due Date Last Done Comments DISCUSS TOBACCO CESSATION (REFER TO SMARTSET #4792) 1970 Hepatitis B (1 of 3 - 3-dose series) 1970 HIV Screening 1985 Albumin/Creatinine Ratio 01/29/1988 Alpha-1 Antitrypsin 01/29/1988 Pap Smear 1991 Cervical Cancer Screening 01/29/2000 HPV/Co-Test 01/29/2000 Mammogram 2010 Cologuard 2015 Colonoscopy 2015 Colorectal Cancer Screening 2015 Fecal Occult Blood Test 2015 Sigmoidoscopy 2015 Depression Screening 04/30/2015 04/30/2014 *COPD SEVERITY VERIFIED BY PFT 12/26/2015 LUNG CANCER SCREENING - USE SMARTSET [id number] 01/29/2020 GFR 02/13/2024 02/12/2023, 12/13, 12/26/2022, Additional [...] the patient have Health Care Power of External Relations Manager? No Code Status History Code Status Date [...] Advance Directives occurred with: Patient Care Teams Criminal Justice Program Director Relationship Specialty Start Date End Date Eliza Mcfarland MD [address] [place] [id number] PCP - General Family Medicine 12/09/21 documented as of this encounter
--- OUTSIDE RECORDS SUMMARY | 2023-07-14 03:42 | External Medical Summary | Summary of Care ---
Author Name Unknown Organization [facility] Address [address] [place] [address] Phone [phone] Care Team Providers Care Tower Observer Name Role Phone Eliza Mcfarland MD Primary Care Prov ider Reason for Visit * Reason Onset Date Comments case management 05/03/2023 Encounter Details Date Type Department Care Team Description 05/03/2023 Jig Boring Machine Set Up Operator Telephone Care Coordination [address] [place] [address] Kajal Elam LSW [address], [place] [phone] case management Allergies Active Allergy Reactions Severity Noted Date Comments Codeine Nausea/vomiting High 03/20/2014 Eggs Or Egg-Derived Products Nausea/vomiting 01/23/2023 Naloxone Nausea/vomiting 04/07/2022 Other reaction(s): rash/hives Tramadol Hives High 03/20/2014 Hydrocodone-Acetaminophen Nausea/vomiting 12/09 Hives and nausea documented as of this encounter (statuses as of 05/03/2023) Medications Medication Sig Dispensed Refills Start Date [...] with nonbilious vomiting,B12 deficiency 1000 mcg IM [id number] 07/11/2022 06/12/2023 A ctive documented as of this encounter (statuses as of 05/03/2023) Active Problems Problem Noted Date Cyclic vomiting [...] as of this encounter (statuses as of 05/03/2023) Resolved Problems Problem Noted Date Resolved Date [...] as of this encounter (statuses as of 05/03/2023) Immunizations Name Administration Dates Next Due Covid-19, Mrna, Lnp-s, Pf, B ivalent, 50 Mcg, IM, 12 yrs and above (Moderna) 04/24/2022 Pneumococcal Conjugate Vacci ne, 20-valent ([id number]) 03/31/2023,07/04/2022 Seasonal Influenza, Quadriva lent Hd (Fluzone [...] * Telephone Encounter - PARTH Randolph - 05/03/2023 3:18 PM EDT [facility]1 Follow-up Routine Attempted Phone Call First Attempt Call Outcome Unable to Leave Message Plan To attempt another outreach [facility] Jig Boring Machine Set Up Operator (Pronouns: she, her, hers) Care Coordination Integration home care specialist documented in this encounter Plan of Treatment Upcoming Encounters Date Type Specialty Care Team Description 06/18/2023 Office Visit Family Medicine Eliza Mcfarland MD [address] [place] [address] Scheduled Procedures Name Priority Associated Diagnoses Date/Ti me ESOPHAGOGASTRODUODENOSCOPY ( EGD), FLEXIBLE, TRANSORAL, DIAGNOSTIC Epigastric pain Health Maintenance Due Date Last Done Comments DISCUSS TOBACCO CESSATION (REFER TO SMARTSET #5729) 1970 Hepatitis B (1 of 3 - 3-dose series) 1970 HIV Screening 1985 Albumin/Creatinine Ratio 01/29/1988 Alpha-1 Antitrypsin 01/29/1988 Pap Smear 1991 Cervical Cancer Screening 01/29/2000 HPV/Co-Test 01/29/2000 Mammogram 2010 Cologuard 2015 Colonoscopy 2015 Colorectal Cancer Screening 2015 Fecal Occult Blood Test 2015 Sigmoidoscopy 2015 Depression Screening 04/30/2015 04/30/2014 *COPD SEVERITY VERIFIED BY PFT 12/26/2015 LUNG CANCER SCREENING - USE SMARTSET [id number] 01/29/2020 GFR 02/13/2024 02/12/2023, 12/13, 12/26/2022, Additional [...] the patient have Health Care Power of Mixing And Dispensing Supervisor? No Code Status History Code Status [...] Advance Directives occurred with: Patient Care Teams Tower Observer Relationship Specialty Start Date End Date Eliza Mcfarland MD [address] [place] [address] PCP - General Family Medicine 12/09/21 documented as of this encounter
--- OUTSIDE RECORDS SUMMARY | 2023-07-14 03:42 | External Medical Summary | Summary of Care ---
Author Name Unknown Organization [facility] Address [address] [facility] [place] [address] Phone [phone] Care Team Providers Care Php Web Developer Name Role Phone Guilherme Mcfarland MD Primary Care Prov ider Reason for Visit * Reason Onset Date Comments Appointment 06/19/2023 egd Encounter Details Date Type Department Care Team (Late st Contact Info) Description 06/19/2023 Telephone [facility] [address] [place] [address] Margaret Ling MD [address] [place] [address] Appointment (egd) Allergies Active Allergy Reactions Criticality [...] (Moderna) 04/24/2022 Pneumococcal Conjugate Vacci ne, 20-valent ([id number]) 03/31/2023,07/04/2022 Seasonal Influenza, Quadriva lent Hd (Fluzone [...] encounter Miscellaneous Notes * Telephone Encounter - Astrid Padilla - 06/19/2023 8:57 AM EST Indication for study Vomiting INSURANCE [facility] insurance NOT accepted by [employer] and [employer] Medicare are accepted ONLY in [place] and ONLY with providers Adriana Sanabria Fabian, [...] extended prep) Preassessment Nurse Status: 06/28/23 at [facility]. Instructions sent to patient through [email or web address]. * Telephone Encounter - Astrid Padilla - 06/19/2023 8:36 AM EST Spoke with patient, she would like to either go to [facility] or [facility]. Her [facility] [place] was at [facility] [place]. Patient does not meet GEM criteria due to severe COPD and chronic airway obstruction. If patient meets criteria, please schedule patient at [facility]. Also speaking with SHOT MAN at [facility] to see if she meets criteria there also. * Telephone Encounter - Sun Luciano OSA - 06/19/2023 8:12 AM EST OUTPATIENT REFERRAL REQUEST UPPER ENDOSCOPY GI REFERRAL OP Name: Charleen Mathis Birthdate: 1970 Patient's Address: [address] [address], [place] [address] Home: Work: Patient Preference: Referral ID: [id number] Referred To: UPPER ENDOSCOPY GI REFERRAL OP Natural Resource Economist: Provider Specialty: Gastroenterology Priority: Within 10 days (routine) Visit Coverage: [facility] Primary Payor: [facility] Appointment Info: Date: Time: Referral Type: Ancillary Services [] Expiration Date: Number of Visits Requested: 999 Associated Diagnosis: Cyclic vomiting syndrome (R11.15) Gastroesophageal reflux disease, unspecified whether esophagitis present (K21.9) Problem/Desired Service from Natural Resource Economist: Upper Endoscopy ASGE Guidelines Shahid's esophagus surveillance and Persistent vomiting of unknown cause ADDITIONAL INFORMATION 1. Is the patient on Coumadin? No 2. Is the patient on Pradaxa? No Order Specific Questions: Referral Priority: Within 10 days (routine) Where should this appointment be scheduled? [facility] Return Report and Study Results to the Requesting Physician & the PCP PCP: GUILHERME MCFARLAND Code #: [id number] Address: [address] [place] [address] Date: Jun 18, 2023 ................................................................................ ............................................................................ Requesting Physician: Code #: Address: [address] [place] [address] Date: Jun 18, 2023 Authorized by: Guilherme Mcfarland MD * Administrative Questions: [phone] or [phone] documented in this encounter Plan of Treatment Upcoming Encounters Date Type Department Care Team (Late st Contact Info) Description 06/28/2023 10:15 AM EST Appointment Endoscopy, [facility] [address] [place] [address] Marina Wills MD [address] [place] [address] 09/18/2023 1:00 PM EST Telemedicine [facility] [address] [place] [address] Guilherme Mcfarland MD [address] [place] [address] Scheduled Procedures Name Priority Associated Diagnoses Date/Ti [...] 12/26/2015 LUNG CANCER SCREENING - USE SMARTSET [id number] 01/29/2020 GFR 02/13/2024 02/12/2023, 12/13, 12/26/2022, Additional [...] the patient have Health Care Power of Archivist? No Code Status History Code Status Date [...] Advance Directives occurred with: Patient Care Teams Php Web Developer Relationship Specialty Start Date End Date Guilherme Mcfarland MD [address] [place] [address] PCP - General Family Medicine 12/09/21 documented as of this encounter
--- OUTSIDE RECORDS SUMMARY | 2023-07-14 03:42 | External Medical Summary | Summary of Care ---
Author Name Unknown Organization [facility] Address [address] [place] [address] Phone [phone] Care Team Providers Care Spray Operator Name Role Phone Guilherme Mcfarland MD Primary Care Prov ider Reason for Visit * Reason Comments Medication Refill Encounter Details Date Type Department Care Team Description 05/30/[address] [address] Guilherme Mcfarland MD [address] [place] [address] Chronic pain syndrome Allergies Active Allergy Reactions Severity Noted Date [...] for Nausea. 60 Tablet 1 02/06/2023 Active oxyCODONE-Acetam inophen 10-325 MG Oral Tablet [...] for Nausea. 30 Tablet 2 03/05/2023 Active clonazePAM 1 MG Oral Tablet (KlonoPIN) Take 1 Tablet by mouth in the morning and 1 Tablet before bedtime. 60 Tablet 3 05/01/2023 Active oxyCODONE-Acetam inophen 10-325 MG Oral Tablet (Percocet)Indica tions:Chronic pain syndrome Take 1 Tablet by mouth every 6 hours as needed for Pain, Moderate or Pain, Severe. 120 Tablet 0 05/30/2023 Active oxyCODONE-Acetam inophen 10-325 MG Oral Tablet (Percocet)Indica tions:Chronic pain syndrome Take 1 Tablet by mouth every 6 hours as needed for Pain, Moderate or Pain, Severe. 120 Tablet 0 05/01/2023 3 Discontinue d(Refill) Hospital, Clinic, or Other Facility Administered Medication Ordered Dose Route Frequency Start Date End Date Status vitamin b-12 (Cyanocobalamin) inj 1,000 mcgIndications:Acute nausea with nonbilious vomiting,B12 deficiency 1000 mcg IM [id number] 07/11/2022 06/12/2023 A ctive documented as of [...] (Moderna) 04/24/2022 Pneumococcal Conjugate Vacci ne, 20-valent ([id number]) 03/31/2023,07/04/2022 Seasonal Influenza, Quadriva lent Hd (Fluzone [...] as of this encounter Miscellaneous Notes * Addendum Note - Guilherme Mcfarland MD - 05/30/2023 2:18 PM EDT Addended by: GUILHERME MCFARLAND on: 05/30/2023 02:18 PM Modules accepted: Orders * Telephone Encounter - Guilherme Mcfarland MD - 05/30/2023 2:16 PM EDT Refused Prescriptions: Disp Refills oxyCODONE-Acetaminophen 10-325 MG Oral Tab*120 Ta*0 Sig: Take 1 Tablet by mouth every 6 hours as needed for Pain, Moderate or Pain, Severe. Refused By: GUILHERME MCFARLAND Reason for Refusal: Duplicate Request * Telephone Encounter - Guilherme Mcfarland MD - 05/30/2023 2:16 PM EDT Refused Prescriptions: Disp Refills oxyCODONE-Acetaminophen 10-325 MG Oral Tab*120 Ta*0 Sig: Take 1 Tablet by mouth every 6 hours as needed for Pain, Moderate or Pain, Severe. Refused By: GUILHERME MCFARLAND Reason for Refusal: Duplicate Request * Telephone Encounter - Guilherme Mcfarland MD - 05/30/2023 2:16 PM EDT Duplicate request * Telephone Encounter - Sara Sloan [facility] - 05/30/2023 9:55 AM EDTPending Prescriptions: Disp Refills oxyCODONE-Acetaminophen 10-325 MG Oral Tab*120 Ta*0 Sig: Take 1 Tablet by mouth every 6 hours as needed for Pain, Moderate or Pain, Severe. * Telephone Encounter - Sara Sloan [facility] - 05/30/2023 9:54 AM EDT I have reviewed the patients controlled substance dispensing history in the Prescription Drug Monitoring Program in compliance with the [facility] regulations before prescribing a controlled substance. PDMP checked on 05/30/2023. Pending Prescriptions: Disp Refills oxyCODONE-Acetaminophen 10-325 MG Oral Ta*120 Ta*0 Sig: Take 1 Tablet by mouth every 6 hours as needed for Pain, Moderate or Pain, Severe. Last Visit: Visit date not found (in office), 05/01/2023 (telemedicine) Next Visit: 06/18/2023 Date medication was last filled: 05/02 Date medication is due for refill: 05/31 Pharmacy: [facility] Is this request for a controlled substance? Yes and Urine Drug Screen Not completed Toxicology results: Results for orders placed or performed in visit on 06/08/22 TOXICOLOGY, URINE SCREEN W/ CONFIRMATION Result Value Amphetamine Negative Benzodiazepines Negative Cannabinoids Positive (A) Cocaine Metabolite Negative Fentanyl Negative Hydrocodone / Hydromorphone Negative Methadone Metabolite Negative Morphine / Codeine Negative Oxycodone / Oxymorphone Negative Narrative Cutoff Concentrations: Drug Level Amphetamines 500 ng/mL Benzodiazepines 100 ng/mL Cannabinoids 50 ng/mL Cocaine Metabolite 150 ng/mL Fentanyl 1 ng/mL Hydrocodone / Hydromorphone 300 ng/mL Methadone Metabolite 100 ng/mL Morphine / Codeine 300 ng/mL Oxycodone / Oxymorphone 100 ng/mL Screening results are presumptive and can only be used for medical purposes. Positive screening results are reflexed to confirmatory testing. Please approve if appropriate. Thank you, Sara Sloan, PharmD. Clinical Pharmacist [facility] ([facility]) (formerly Telepharmacy) 05/30/2023, 9:54 AM * Telephone Encounter - Sara Lizarraga CPhT - 05/30/2023 9:49 AM EDT Patient calling to check on status of refill request needs ordered for SUN . Thank you, Sara Lizarraga Admissions Assistant II [facility] ([facility]) (formerly Telepharmacy) 05/30/2023 9:50 AM * Telephone Encounter - Harika Olivas LPN - 05/30/2023 9:39 AM EDTPending Prescriptions: Disp Refills oxyCODONE-Acetaminophen 10-325 MG Oral Tab*120 Ta*0 Sig: Take 1 Tablet by mouth every 6 hours as needed for Pain, Moderate or Pain, Severe. * Telephone Encounter - Harika Olivas LPN - 05/30/2023 9:39 AM EDT Pending Prescriptions: Disp Refills oxyCODONE-Acetaminophen 10-325 MG Oral Ta*120 Ta*0 Sig: Take 1 Tablet by mouth every 6 hours as needed for Pain, Moderate or Pain, Severe. Last Visit: Visit date not found (in office), 05/01/2023 (telemedicine) Next Visit: 06/18/2023 Last date the medication was ordered: 05/01/2023 Patient Active Problem List Diagnosis Code Chronic airway obstruction, not elsewhere classified J44.89 Lumbago M54.50 Other psoriasis L40.8 Dermatophytosis of foot B35.3 HTN, goal below 140/90 I10 Lumbar degenerative disc disease M51.36 Migraine G43.909 Nausea, vomiting and diarrhea R11.2, R19.7 Alkalosis, metabolic E87.3 Chronic back pain M54.9, G89.29 Narcotic dependence (HCC) F11.20 Hypertensive urgency I16.0 Recurrent generalized abdominal pain R10.84 Gastroesophageal reflux disease K21.9 Abdominal pain R10.9 Nausea R11.0 JESSIE (generalized anxiety disorder) F41.1 History of hepatitis C Z86.19 GEORGINA (acute kidney injury) (HCC) N17.9 Acute hyponatremia E87.1 Intractable nausea and vomiting R11.2 History of appendectomy Z90.49 COPD, severe (HCC) J44.9 Cyclic vomiting syndrome R11.15 Intractable vomiting R11.10 Labs: Lab Results Component Value Date/Time CREATININE - [facility] 0.7 02/12/2023 07:59 PM CREATININE - [facility] 1.0 05/23/2017 04:30 AM Lab Results Component Value Date/Time POTASSIUM - [facility] 4.0 02/12/2023 07:59 PM POTASSIUM - [facility] 3.6 05/23/2017 04:30 AM Lab Results Component Value Date/Time TSH - [facility] 3.33 02/12/2023 07:59 PM TSH - [facility] 4.46 (H) 05/23/2017 04:30 AM Lab Results Component Value Date/Time LDL CHOLESTEROL (CALCULATED) - [facility] 108 09/15/2022 05:55 AM LDL CHOLESTEROL (CALCULATED) - [facility] 96 06/08/2022 10:57 AM LDL CHOLESTEROL (CALCULATED) - [facility] 129 03/20/2014 10:15 AM Lab Results Component Value Date/Time ALT - [facility] 17 02/12/2023 07:59 PM ALT - [facility] 11 05/23/2017 04:30 AM Hemoglobin AIC Results: Lab Results Component Value Date/Time HEMOGLOBIN A1C - [facility] 6.2 (H) 06/08/2022 10:57 AM documented in this encounter Plan of Treatment Upcoming Encounters Date Type Specialty Care Team Description 06/18/2023 Office Visit Family Medicine Guilherme Mcfarland MD [address] [place] [address] Scheduled Procedures Name Priority Associated Diagnoses Date/Ti me ESOPHAGOGASTRODUODENOSCOPY ( EGD), FLEXIBLE, TRANSORAL, DIAGNOSTIC Epigastric pain Health Maintenance Due Date Last Done Comments DISCUSS TOBACCO CESSATION (REFER TO SMARTSET #6967) 1970 Hepatitis B (1 of 3 - 3-dose series) 1970 HIV Screening 1985 Albumin/Creatinine Ratio 01/29/1988 Alpha-1 Antitrypsin 01/29/1988 Pap Smear 1991 Cervical Cancer Screening 01/29/2000 HPV/Co-Test 01/29/2000 Mammogram 2010 Cologuard 2015 Colonoscopy 2015 Colorectal Cancer Screening 2015 Fecal Occult Blood Test 2015 Sigmoidoscopy 2015 Depression Screening 04/30/2015 04/30/2014 *COPD SEVERITY VERIFIED BY PFT 12/26/2015 LUNG CANCER SCREENING - USE SMARTSET [id number] 01/29/2020 COVID-19 Vaccine ( season) 2023 04/24/2022 GFR 02/13/2024 02/12/2023, 12/13, [...] Not on filedocumented as of this encounter Visit Diagnoses Diagnosis Chronic pain syndrome documented in this encounter Advance Directives Latest Code Status on File Code Status Date Activated Date Inactivated Comments Full Code 12/21/2022 2:17 PM 12/22/2022 1:45 PM This order reflects the patients wishes and were consensually agreed upon. Question Answer Comments Discussion of Advance Directives occurred with: Patient Does the patient have a Living Will? No Does the patient have Health Care Power of Naturopathic Oncology Provider? No Code Status History Code Status Date [...] Advance Directives occurred with: Patient Care Teams Spray Operator Relationship Specialty Start Date End Date Guilherme Mcfarland MD [address] [place] [address] PCP - General Family Medicine 12/09/21 documented as of this encounter
--- OUTSIDE RECORDS SUMMARY | 2023-07-14 03:42 | External Medical Summary | Summary of Care ---
Author Name Unknown Organization [facility] Address [address] [place] [address] Phone [phone] Care Team Providers Care Shipsmith Name Role Phone Eliza Mcfarland MD Primary Care Prov ider Reason for Visit * Reason Onset Date Comments Appointment 05/02/2023 Encounter Details Date Type Department Care Team Description 05/02/[address] [address] Eliza Mcfarland MD [address] [place] [address] Appointment Allergies Active Allergy Reactions Severity Noted Date Comments Codeine Nausea/vomiting High 03/20/2014 Eggs Or Egg-Derived Products Nausea/vomiting 01/23/2023 Naloxone Nausea/vomiting 04/07/2022 Other reaction(s): rash/hives Tramadol Hives High 03/20/2014 Hydrocodone-Acetaminophen Nausea/vomiting 12/09 Hives and nausea documented as of this encounter (statuses as of 05/07/2023) Medications Medication Sig Dispensed Refills Start Date [...] with nonbilious vomiting,B12 deficiency 1000 mcg IM [id number] 07/11/2022 06/12/2023 A ctive documented as of this encounter (statuses as of 05/07/2023) Active Problems Problem Noted Date Cyclic vomiting [...] as of this encounter (statuses as of 05/07/2023) Resolved Problems Problem Noted Date Resolved Date [...] as of this encounter (statuses as of 05/07/2023) Immunizations Name Administration Dates Next Due Covid-19, Mrna, Lnp-s, Pf, B ivalent, 50 Mcg, IM, 12 yrs and above (Moderna) 04/24/2022 Pneumococcal Conjugate Vacci ne, 20-valent ([id number]) 03/31/2023,07/04/2022 Seasonal Influenza, Quadriva lent Hd (Fluzone [...] encounter Miscellaneous Notes * Telephone Encounter - JR Monzon - 05/02/2023 2:10 PM EDT LM for the patient to call and schedule follow up appointment with Dr Mcfarland in June as requested by provider following her video visit on 05/01/23. Please schedule appropriately should the patient call back. documented in this encounter Plan of Treatment Upcoming Encounters Date Type Specialty Care Team Description 06/18/2023 Office Visit Family Medicine Eliza Mcfarland MD [address] [place] [address] Scheduled Procedures Name Priority Associated Diagnoses Date/Ti me ESOPHAGOGASTRODUODENOSCOPY ( EGD), FLEXIBLE, TRANSORAL, DIAGNOSTIC Epigastric pain Health Maintenance Due Date Last Done Comments DISCUSS TOBACCO CESSATION (REFER TO SMARTSET #2288) 1970 Hepatitis B (1 of 3 - 3-dose series) 1970 HIV Screening 1985 Albumin/Creatinine Ratio 01/29/1988 Alpha-1 Antitrypsin 01/29/1988 Pap Smear 1991 Cervical Cancer Screening 01/29/2000 HPV/Co-Test 01/29/2000 Mammogram 2010 Cologuard 2015 Colonoscopy 2015 Colorectal Cancer Screening 2015 Fecal Occult Blood Test 2015 Sigmoidoscopy 2015 Depression Screening 04/30/2015 04/30/2014 *COPD SEVERITY VERIFIED BY PFT 12/26/2015 LUNG CANCER SCREENING - USE SMARTSET [id number] 01/29/2020 GFR 02/13/2024 02/12/2023, 12/13, 12/26/2022, Additional [...] the patient have Health Care Power of Service Operations Manager? No Code Status History Code Status [...] Advance Directives occurred with: Patient Care Teams Shipsmith Relationship Specialty Start Date End Date Eliza Mcfarland MD [address] [place] [address] PCP - General Family Medicine 12/09/21 documented as of this encounter
--- OUTSIDE RECORDS SUMMARY | 2023-07-14 03:42 | External Medical Summary | Summary of Care ---
Author Name Unknown Organization [facility] Address [address] [place] [address] Phone [phone] Care Team Providers Care Timber Spotter Name Role Phone Eliza Mcfarland MD Primary Care Prov ider Reason for Visit * Reason Comments case management Encounter Details Date Type Department Care Team Description 04/24/[address] [phone] Isabel Christensen, RN [address] [place] [address] Medical home patient encounter* Allergies Active Allergy Reactions Severity Noted Date Comments Codeine Nausea/vomiting High 03/20/2014 Eggs Or Egg-Derived Products Nausea/vomiting 01/23/2023 Naloxone Nausea/vomiting 04/07/2022 Other reaction(s): rash/hives Tramadol Hives High 03/20/2014 Hydrocodone-Acetaminophen Nausea/vomiting 12/09 Hives and nausea documented as of this encounter (statuses as of 04/24/2023) Medications Medication Sig Dispensed Refills Start Date [...] with nonbilious vomiting,B12 deficiency 1000 mcg IM [id number] 07/11/2022 06/12/2023 A ctive documented as of this encounter (statuses as of 04/24/2023) Active Problems Problem Noted Date History of [...] as of this encounter (statuses as of 04/24/2023) Resolved Problems Problem Noted Date Resolved Date [...] as of this encounter (statuses as of 04/24/2023) Immunizations Name Administration Dates Next Due Covid-19, Mrna, Lnp-s, Pf, B ivalent, 50 Mcg, IM, 12 yrs and above (Moderna) 04/24/2022 Pneumococcal Conjugate Vacci ne, 20-valent ([id number]) 03/31/2023,07/04/2022 Seasonal Influenza, Quadriva lent Hd (Fluzone [...] No 12/21/2022 documented as of this encounter Progress Notes * Isabel Christensen RN - 04/24/2023 3:58 PM EDT Please discharge the patient from [facility] ([facility] [place] Device(s)/IVR to be discontinued: BP cuff due to patient has been UTC. Thank you. documented in this encounter Plan of Treatment Upcoming Encounters Date Type Specialty Care Team Description 05/01/2023 Telemedicine Family Medicine Eliza Mcfarland MD [address] [place] [address] Scheduled Procedures Name Priority Associated Diagnoses Date/Ti me ESOPHAGOGASTRODUODENOSCOPY ( EGD), FLEXIBLE, TRANSORAL, DIAGNOSTIC Epigastric pain Health Maintenance Due Date Last Done Comments DISCUSS TOBACCO CESSATION (REFER TO SMARTSET #3905) 1970 Hepatitis B (1 of 3 - 3-dose series) 1970 HIV Screening 1985 Albumin/Creatinine Ratio 01/29/1988 Alpha-1 Antitrypsin 01/29/1988 Pap Smear 1991 Cervical Cancer Screening 01/29/2000 HPV/Co-Test 01/29/2000 Mammogram 2010 Cologuard 2015 Colonoscopy 2015 Colorectal Cancer Screening 2015 Fecal Occult Blood Test 2015 Sigmoidoscopy 2015 Depression Screening 04/30/2015 04/30/2014 *COPD SEVERITY VERIFIED BY PFT 12/26/2015 LUNG CANCER SCREENING - USE SMARTSET [id number] 01/29/2020 GFR 02/13/2024 02/12/2023, 12/13, 12/26/2022, Additional [...] as of this encounter Visit Diagnoses Diagnosis Medical home patient encounter- Primary Other specified examination documented in this encounter Advance Directives Latest Code Status on File Code Status Date Activated Date Inactivated Comments Full Code 12/21/2022 2:17 PM 12/22/2022 1:45 PM This order reflects the patients wishes and were consensually agreed upon. Question Answer Comments Discussion of Advance Directives occurred with: Patient Does the patient have a Living Will? No Does the patient have Health Care Power of Turf Keeper? No Code Status History Code Status Date [...] Advance Directives occurred with: Patient Care Teams Timber Spotter Relationship Specialty Start Date End Date Eliza Mcfarland MD [address] [place] [phone] PCP - General Family Medicine 12/09/21 documented as of this encounter
--- OUTSIDE RECORDS SUMMARY | 2023-07-14 03:42 | External Medical Summary | Summary of Care ---
Author Name Unknown Organization [facility] Address [address] [place] [address] Phone [phone] Care Team Providers Care Rewinder Name Role Phone Eliza Mcfarland MD Primary Care Prov ider Reason for Referral * Ancillary Services (Within 10 days (routine)) - Authorized Specialty Diagnoses / Procedures Referred By Contac t Referred To Contact Gastroenterology Diagnoses Cyclic vomiting syndrome Gastroesophageal reflux disease, unspecified whether esophagitis present Eliza Mcfarland MD [address] [place] [phone] Referral ID Status Reason Start Date Expiration Date Visits Requested Visits Authorized [id number] Authorized Ancillary Services Required 06/18/[phone] Question Answer Referral Priority Within 10 days (routine) Where should this appointment be scheduled? [facility] Comments Upper Endoscopy ASGE Guidelines Shahid's esophagus surveillance and Persistent vomiting of unknown cause ADDITIONAL INFORMATION 1. Is the patient on Coumadin? No 2. Is the patient on Pradaxa? No Reason for Visit * Reason Comments Follow Up Encounter Details Date Type Department Care Team (Late st Contact Info) Description 06/18/2023 3:20 PM EST Office Visit [address] [address] Eliza Mcfarland MD [address] [place] [phone] COPD, severe (HCC)*; Cyclic vomiting syndrome; Chronic pain syndrome; Gastroesophageal reflux disease, unspecified whether esophagitis present; Chronic insomnia Allergies Active Allergy Reactions Criticality Noted Date Comments Codeine Nausea/vomiting High 03/20/2014 Naloxone Nausea/vomiting 04/07/2022 Other reaction(s): rash/hives Tramadol Hives High 03/20/2014 Hydrocodone-Acetaminoph en Nausea/vomiting 12/09/2021 Hives and nausea documented as of this encounter (statuses as of 06/18/2023) Medications Medication Sig Dispensed Refills Start Date [...] for 5 days. 10 Tablet 0 06/18/2023 3 Active Azithromycin 250 MG Oral Tablet (Zithromax) Take 2 tabs by mouth on the first day, then 1 tab daily on days two through five 6 Tablet 0 06/18/2023 Active predniSONE 20 MG Oral Tablet (Deltasone) Take 2 Tablets by mouth in the morning for 5 days. 10 Tablet 0 06/18/2023 3 Active Eszopiclone 2 MG Oral Tablet (Lunesta) [...] as directed 53 Each 0 06/18/2023 Active Syringe 25G X 1" 3 ML Use to administer Tigan solution as needed 50 Each 0 09/06/2022 3 Discontinue d(Patient preference/ discontinua tion) QUEtiapine Fumarate 200 MG Oral Tablet (SEROquel) Take 1- 1.5 tablets nightly at bedtime 60 Tablet 5 01/23/2023 3 Discontinue d(End of Procedure) Ventolin HFA 108 (90 Base) MCG/ACT Inhalation Aerosol Solution Inhale 2 Puffs by mouth every 4 hours as needed for Shortness of Breath or Wheezing. 18 g 2 01/23/2023 3 Discontinue d(Refill) oxyCODONE-Acetam inophen 10-325 MG Oral Tablet (Percocet)Indica tions:Chronic pain syndrome Take 1 Tablet by mouth every 8 hours as needed for Pain, Moderate or Pain, Severe. Do not start before March 30, 2023. 90 Tablet 0 03/30/2023 3 Discontinue d(Patient preference/ discontinua tion) predniSONE 20 MG Oral Tablet (Deltasone) Take 2 Tablets by mouth in the morning for 5 days. 10 Tablet 0 03/01/2023 3 Discontinue d(Patient preference/ discontinua tion) levoFLOXacin 500 MG Oral Tablet (Levaquin) Take 1 Tablet by mouth in the morning for 5 days. 5 Tablet 0 03/05/2023 3 Discontinue d(Patient preference/ discontinua tion) clonazePAM 1 MG Oral Tablet (KlonoPIN) Take 1 Tablet by mouth in the morning and 1 Tablet before bedtime. 60 Tablet 3 05/01/2023 3 Discontinue d(Refill) oxyCODONE-Acetam inophen 10-325 MG Oral Tablet (Percocet)Indica tions:Chronic pain syndrome Take 1 Tablet by mouth every 6 hours as needed for Pain, Moderate or Pain, Severe. 120 Tablet 0 05/30/2023 3 Discontinue d(Refill) documented as of this encounter (statuses as of 06/18/2023) Active Problems Problem Noted Date Diagnosed Date Chronic insomnia 06/18/2023 Overview: Failed trazodone, seroquel, [...] as of this encounter (statuses as of 06/18/2023) Resolved Problems Problem Noted Date Diagnosed Date [...] as of this encounter (statuses as of 06/18/2023) Immunizations Name Administration Dates Next Due COVID-19, MRNA-LNP, 23-24, P F, 30 MCG/0.3 mL, 12 YRS AND ABOVE, IM ([facility]) 06/15/2023 Covid-19, Mrna, Lnp-s, Pf, B ivalent, 50 Mcg, IM, 12 yrs and above (Moderna) 04/24/2022 Pneumococcal Conjugate Vacci ne, 20-valent ([id number]) 03/31/2023,07/04/2022 Seasonal Influenza, Quadriva lent Hd (Fluzone [...] Day Cigarettes 1 25 Smokeless Tobacco: Never Tobacco Cessation:Ready to Q uit: Not Asked; Counseling Given: Not Answered Alcohol Use Standard Drinks/Week Comments No 0 [...] on file documented as of this encounter Last Filed Vital Signs Vital Sign Reading Time Taken Comments Blood Pressure 136/86 06/18/2023 2:52 PM EST Pulse 75 06/18/2023 2:52 PM EST Temperature 37.3 C (99.1 F) 06/18/2023 2:52 PM ES T Respiratory Rate 20 06/18/2023 2:52 PM EST Oxygen Saturation 97% 06/18/2023 2:52 PM EST Inhaled Oxygen Concentration - - Weight 91.9 kg (202 lb 11.2 oz) 06/18/2023 2:52 PM EST Height 167.6 cm (5' 6") 06/18/2023 2:52 PM EST Body Mass Index 32.72 06/18/2023 2:52 PM EST documented in this encounter Functional Status Functional Status Response [...] as of this encounter Progress Notes * Eliza Mcfarland MD - 06/18/2023 3:18 PM EST Images from the original note were not included. Portions of this record may have been dictated using voice recognition software. Variations in spelling and in vocabulary are possible and unintentional. Some errors may not be recognized or corrected at time of dictation. History of Present Illness Charleen Mathis is a 53 year old female that presents for Follow Up Chronic cyclic vomiting syndrome, recent exacerbation had been free of episodes for about 3 months.Stable now. Still having reflux symptoms. Patient states that she has "multiple ulcers in the lining of her stomach" Not sleeping at all, not taking Seroquel. Has been giving her restless legs. Sleep may have been disturbed by recent anxiety and grief. Patient's father recently. COPD, more coughing than normal. More short of breath than normal. Patient getting short of breath with minimal exertion. She does use oxygen therapy at bedtime. Patient describes no fever but chillsand productive sputum previously white now green-yellow Physical Exam Vitals: 06/18/23 1452 Temp: 37.3 C (99.1 F) Pulse: 75 Resp: 20 SpO2: 97% BP: 136/86 BMI: 32.73 Physical Exam Vitals and nursing note reviewed. Constitutional: General: She is not in acute distress. Appearance: Normal appearance. HENT: Head: Normocephalic and atraumatic. Eyes: Extraocular Movements: Extraocular movements intact. Cardiovascular: Rate and Rhythm: Normal rate and regular rhythm. Heart sounds: Normal heart sounds. Pulmonary: Effort: Pulmonary effort is normal. Breath sounds: Normal breath sounds. Neurological: Mental Status: She is alert. Assessment and Plan COPD, severe (HCC) Suspect exacerbation recommend a Zithromax and and prednisone. Continue oxygen therapy and Trelegy. Cyclic vomiting syndrome Stable now, continue current treatment plan, recommend EGD. - UPPER ENDOSCOPY GI REFERRAL OP Chronic pain syndrome Stable continue current - oxyCODONE-Acetaminophen 10-325 MG Oral Tablet (Percocet); Take 1 Tablet by mouth every 6 hours asneeded for Pain, Moderate or Pain, Severe. Gastroesophageal reflux disease, unspecified whether esophagitis present Continue twice daily PPI, suspect patient may have Shahid's esophagus based on her history. Recommend EGD. - UPPER ENDOSCOPY GI REFERRAL OP Chronic insomnia Failed melatonin, trazodone, Unisom, mirtazapine, Seroquel. Also failed Ambien high dose. Trial of Lunesta if fails would consider Psychiatry Wrap-Up Follow-up: Return in about 3 months (around 09/18/2023). | Check-out note: Telemedicine ok documented in this encounter Nursing Notes * Day Randall LPN - 06/18/2023 2:53 PM EST Pt is here for f/u. Pt has no new complaints or concerns. documented in this encounter Plan of Treatment Upcoming Encounters Date Type Department Care Team (Late st Contact Info) Description 09/18/2023 1:00 PM EST Telemedicine [address] [address] Eliza Mcfarland MD [address] [place] [phone] Scheduled Procedures Name Priority Associated Diagnoses Date/Ti me ESOPHAGOGASTRODUODENOSCOPY ( EGD), FLEXIBLE, TRANSORAL, DIAGNOSTIC Epigastric pain Scheduled Referrals Name Type Priority Associated Diagnoses Orde r Schedule UPPER ENDOSCOPY GI REFERRAL OP Referral Within 10 days (routine) Cyclic vomiting syndrome Gastroesophageal reflux disease, unspecified whether esophagitis present Ordered: 06/18/2023 Health Maintenance Due Date Last Done Comments DISCUSS TOBACCO CESSATION (REFER TO SMARTSET #4183) 1970 Hepatitis B (1 of 3 - 3-dose series) 1970 HIV Screening 1985 Albumin/Creatinine Ratio 01/29/1988 Alpha-1 Antitrypsin 01/29/1988 Pap Smear 1991 Cervical Cancer Screening 01/29/2000 HPV/Co-Test 01/29/2000 Mammogram 2010 Cologuard 2015 Colonoscopy 2015 Colorectal Cancer Screening 2015 Fecal Occult Blood Test 2015 Sigmoidoscopy 2015 Depression Screening 04/30/2015 04/30/2014 *COPD SEVERITY VERIFIED BY PFT 12/26/2015 LUNG CANCER SCREENING - USE SMARTSET [id number] 01/29/2020 GFR 02/13/2024 02/12/2023, 12/13, 12/26/2022, Additional [...] as of this encounter Visit Diagnoses Diagnosis COPD, severe (HCC)- Primary Chronic airway obstruction, not elsewhere classified Cyclic vomiting syndrome Persistent vomiting Chronic pain syndrome Gastroesophageal reflux disease, unspecified whether esophagitis present Chronic insomnia Insomnia, unspecified documented in this encounter Advance Directives Latest Code Status on File Code Status Date Activated Date Inactivated Comments Full Code 12/21/2022 2:17 PM 12/22/2022 1:45 PM This order reflects the patients wishes and were consensually agreed upon. Question Answer Comments Discussion of Advance Directives occurred with: Patient Does the patient have a Living Will? No Does the patient have Health Care Power of Home Theater Specialist? No Code Status History Code Status Date [...] Advance Directives occurred with: Patient Care Teams Rewinder Relationship Specialty Start Date End Date Eliza Mcfarland MD [address] [place] [phone] PCP - General Family Medicine 12/09/21 documented as of this encounter
--- OUTSIDE RECORDS SUMMARY | 2023-07-14 03:42 | External Medical Summary | Summary of Care ---
Author Name Unknown Organization [facility] Address [address] [place] [address] Phone [phone] Care Team Providers Care Lacquer Pin Press Operator Name Role Phone Eliza Mcfarland MD Primary Care Prov ider Encounter Details Date Type Department Care Team Description 05/01/[address] [address] Eliza Mcfarland MD [address] [place] [phone] Cyclic vomiting syndrome*; Lumbar degenerative disc disease; Chronic pain syndrome; COPD, severe (HCC); HTN, goal below 140/90 Allergies Active Allergy Reactions Severity Noted Date Comments Codeine Nausea/vomiting High 03/20/2014 Eggs Or Egg-Derived Products Nausea/vomiting 01/23/2023 Naloxone Nausea/vomiting 04/07/2022 Other reaction(s): rash/hives Tramadol Hives High 03/20/2014 Hydrocodone-Acetaminophen Nausea/vomiting 12/09 Hives and nausea documented as of this encounter (statuses as of 05/01/2023) Medications Medication Sig Dispensed Refills Start Date [...] for Nausea. 30 Tablet 2 03/05/2023 Active oxyCODONE-Acetam inophen 10-325 MG Oral Tablet (Percocet)Indica tions:Chronic pain syndrome Take 1 Tablet by mouth every 6 hours as needed for Pain, Moderate or Pain, Severe. 120 Tablet 0 05/01/2023 Active clonazePAM 1 MG Oral Tablet (KlonoPIN) Take 1 Tablet by mouth in the morning and 1 Tablet before bedtime. 60 Tablet 3 05/01/2023 Active clonazePAM 1 MG Oral Tablet (KlonoPIN) Take 1 Tablet by mouth in the morning and 1 Tablet before bedtime. 60 Tablet 3 01/23/2023 3 Discontinue d(Refill) oxyCODONE-Acetam inophen 10-325 MG Oral Tablet (Percocet)Indica tions:Chronic pain syndrome Take 1 Tablet by mouth every 8 hours as needed for Pain, Moderate or Pain, Severe. Do not start before March 01, 2023. 90 Tablet 0 03/01/2023 3 Discontinue d(Refill) Hospital, Clinic, or Other Facility Administered Medication Ordered Dose Route Frequency Start Date End Date Status vitamin b-12 (Cyanocobalamin) inj 1,000 mcgIndications:Acute nausea with nonbilious vomiting,B12 deficiency 1000 mcg IM [id number] 07/11/2022 06/12/2023 A ctive documented as of this encounter (statuses as of 05/01/2023) Active Problems Problem Noted Date Cyclic vomiting [...] as of this encounter (statuses as of 05/01/2023) Resolved Problems Problem Noted Date Resolved Date [...] as of this encounter (statuses as of 05/01/2023) Immunizations Name Administration Dates Next Due Covid-19, Mrna, Lnp-s, Pf, B ivalent, 50 Mcg, IM, 12 yrs and above (Moderna) 04/24/2022 Pneumococcal Conjugate Vacci ne, 20-valent ([id number]) 03/31/2023,07/04/2022 Seasonal Influenza, Quadriva lent Hd (Fluzone [...] Progress Notes * Eliza Mcfarland MD - 05/01/2023 5:37 PM EDT Images from the original note were not included. Portions of this record may have been dictated using voice recognition software. Variations in spelling and in vocabulary are possible and unintentional. Some errors may not be recognized or corrected at time of dictation. History of Present Illness Charleen Mathis is a 53 year old female that presents for No chief complaint on file. Cyclic vomiting syndrome, typically exacerbated with stress. Patient has had significant grief following loss of her father recently. Surprisingly she has done quite well. No episodes of ER visits inno episodes of recent emesis. Patient has not required use of in [place] for several weeks now. She remains stable on daily Compazine. Additional follow-up of hypertension, monitoring at home with good blood pressure readings. Typically blood pressure significantly elevated during episodes of illness but she has been quite stable lately. She continues to hutton with her chronic pain and occasionally has required intermittent additi onal Tylenol. We adjusted her medications some time ago due to her COPD this is now stable and she is doing better. Physical Exam There were no vitals filed for this visit. BP Readings from Last 3 Encounters: 03/02/23 122/80 02/12/23 138/82 02/06/23 (!) 194/118 Wt Readings from Last 3 Encounters: 03/02/23 87.5 kg (193 lb) 02/12/23 82.7 kg (182 lb 5.1 oz) 02/06/23 83.5 kg (184 lb 1.6 oz) Physical Exam Vitals and nursing note reviewed. Constitutional: General: She is not in acute distress. Appearance: Normal appearance. HENT: Head: Normocephalic and atraumatic. Eyes: Extraocular Movements: Extraocular movements intact. Pulmonary: Effort: Pulmonary effort is normal. Skin: Coloration: Skin is not jaundiced. Neurological: General: No focal deficit present. Mental Status: She is alert. Psychiatric: Mood and Affect: Mood normal. Behavior: Behavior normal. Assessment and Plan Cyclic vomiting syndrome Currently stable which is tremendous, patient encouraged to continue current regimen along with maintaining adequate hydration daily. Lumbar degenerative disc disease Stable no new symptoms but increasing pain, I will put patient back at her previous hold all pill count of 120 as she is now stable from a COPD perspective. Chronic pain syndrome As above COPD, severe (HCC) Intermittent use of nocturnal oxygen patient stable also stable on Trelegy. Continue current HTN, goal below 140/90 Controlled continue current Wrap-Up Telemedicine: Patient location: HOME. I was in a hospital or clinic location. After connecting through televideo,patient was verified with two unique identifiers. Patient (or authorized legal customer counter representative) was then informed that this was a Telemedicine visit and being conducted confidentially over secure lines. Methods to assure confidentiality were taken. Patient acknowledged consent and understanding of pr ivacy and security of the Telemedicine visit. The patient agreed to participate. documented in this encounter Plan of Treatment Scheduled Procedures Name Priority Associated Diagnoses Date/Ti me ESOPHAGOGASTRODUODENOSCOPY ( EGD), FLEXIBLE, TRANSORAL, DIAGNOSTIC Epigastric pain Health Maintenance Due Date Last Done Comments DISCUSS TOBACCO CESSATION (REFER TO SMARTSET #6550) 1970 Hepatitis B (1 of 3 - 3-dose series) 1970 HIV Screening 1985 Albumin/Creatinine Ratio 01/29/1988 Alpha-1 Antitrypsin 01/29/1988 Pap Smear 1991 Cervical Cancer Screening 01/29/2000 HPV/Co-Test 01/29/2000 Mammogram 2010 Cologuard 2015 Colonoscopy 2015 Colorectal Cancer Screening 2015 Fecal Occult Blood Test 2015 Sigmoidoscopy 2015 Depression Screening 04/30/2015 04/30/2014 *COPD SEVERITY VERIFIED BY PFT 12/26/2015 LUNG CANCER SCREENING - USE SMARTSET [id number] 01/29/2020 GFR 02/13/2024 02/12/2023, 12/13, 12/26/2022, Additional [...] as of this encounter Visit Diagnoses Diagnosis Cyclic vomiting syndrome- Primary Persistent vomiting Lumbar degenerative disc disease Degeneration of lumbar or lumbosacral intervertebral disc Chronic pain syndrome COPD, severe (HCC) Chronic airway obstruction, not elsewhere classified HTN, goal below 140/90 Unspecified essential hypertension documented in this encounter Advance Directives Latest Code Status on File Code Status Date Activated Date Inactivated Comments Full Code 12/21/2022 2:17 PM 12/22/2022 1:45 PM This order reflects the patients wishes and were consensually agreed upon. Question Answer Comments Discussion of Advance Directives occurred with: Patient Does the patient have a Living Will? No Does the patient have Health Care Power of Valve Fitter? No Code Status History Code Status Date [...] Advance Directives occurred with: Patient Care Teams Lacquer Pin Press Operator Relationship Specialty Start Date End Date Eliza Mcfarland MD [address] [place] [phone] PCP - General Family Medicine 12/09/21 documented as of this encounter
--- OUTSIDE RECORDS SUMMARY | 2023-07-14 03:42 | External Medical Summary | Summary of Care ---
Author Name Unknown Organization [facility] Address [address] [place] [address] Phone [phone] Care Team Providers Care Digital Media Associate Name Role Phone Guilherme Mcfarland MD Primary Care Prov ider Reason for Visit * Reason Comments Medication Refill Encounter Details Date Type Department Care Team Description 05/30/[address] [address] Guilherme Mcfarland MD [address] [place] [address] Chronic pain syndrome Allergies Active Allergy Reactions [...] with nonbilious vomiting,B12 deficiency 1000 mcg IM [id number] 07/11/2022 06/12/2023 A ctive documented as of [...] (Moderna) 04/24/2022 Pneumococcal Conjugate Vacci ne, 20-valent ([id number]) 03/31/2023,07/04/2022 Seasonal Influenza, Quadriva lent Hd (Fluzone [...] request * Telephone Encounter - Sara Sloan [facility] - 05/30/2023 9:55 AM EDTPending Prescriptions: Disp Refills oxyCODONE-Acetaminophen 10-325 MG Oral Tab*120 Ta*0 Sig: Take 1 Tablet by mouth every 6 hours as needed for Pain, Moderate or Pain, Severe. * Telephone Encounter - Sara Sloan [facility] - 05/30/2023 9:54 AM EDT I have reviewed the patients controlled substance dispensing history in the Prescription Drug Monitoring Program in compliance with the [facility] regulations before prescribing a controlled substance. [...] medication is due for refill: 05/31 Pharmacy: [facility] Is this request for a controlled [...] for SUN . Thank you, Sara Lizarraga Order Administrator II [facility] ([facility]) (formerly [...] Office Visit Family Medicine Guilherme Mcfarland MD [address] [place] [address] Scheduled Procedures Name Priority Associated Diagnoses Date/Ti me ESOPHAGOGASTRODUODENOSCOPY ( EGD), FLEXIBLE, TRANSORAL, DIAGNOSTIC Epigastric pain Health Maintenance Due Date Last Done Comments DISCUSS TOBACCO CESSATION (REFER TO SMARTSET #6739) 1970 Hepatitis B (1 of 3 - 3-dose series) 1970 HIV Screening 1985 Albumin/Creatinine Ratio 01/29/1988 Alpha-1 Antitrypsin 01/29/1988 Pap Smear 1991 Cervical Cancer Screening 01/29/2000 HPV/Co-Test 01/29/2000 Mammogram 2010 Cologuard 2015 Colonoscopy 2015 Colorectal Cancer Screening 2015 Fecal Occult Blood Test 2015 Sigmoidoscopy 2015 Depression Screening 04/30/2015 04/30/2014 *COPD SEVERITY VERIFIED BY PFT 12/26/2015 LUNG CANCER SCREENING - USE SMARTSET 69248 01/29/2020 COVID-19 Vaccine ( season) 2023 04/24/2022 [...] the patient have Health Care Power of Picking Machine Operator? No Code Status History Code Status Date [...] Advance Directives occurred with: Patient Care Teams Digital Media Associate Relationship Specialty Start Date End Date Guilherme Mcfarland MD [address] [place] [address] PCP - General Family Medicine 12/09/21 documented as of this encounter
--- OUTSIDE RECORDS SUMMARY | 2023-07-14 03:42 | External Medical Summary | Summary of Care ---
Author Name Unknown Organization [facility] Address [address] [place] [address] Phone [phone] Care Team Providers Care Ironer Sock Name Role Phone Eliza Mcfarland MD Primary Care Prov ider Reason for Visit * Reason Onset Date Comments case management 05/30/2023 Encounter Details Date Type Department Care Team Description 05/30/2023 Utility Systems Repairer Operator Telephone Care Coordination [address] [place] [address] Kajal Elam LSW [address], [place] [phone] case management Allergies Active Allergy Reactions Severity [...] with nonbilious vomiting,B12 deficiency 1000 mcg IM [id number] 07/11/2022 06/12/2023 A ctive documented as of [...] (Moderna) 04/24/2022 Pneumococcal Conjugate Vacci ne, 20-valent ([id number]) 03/31/2023,07/04/2022 Seasonal Influenza, Quadriva lent Hd (Fluzone [...] Telephone Encounter - PARTH Randolph - 05/30/2023 2:02 PM EDT Images from the original note were not included. [facility] Goal Review: [facility] received incoming call from pt. Pt reports that she is doing well however was very sick over the weekend with vomitting and nausea. Pt states that she is doing okay now. [facility] discussed pt's medications. Pt states that she has a call in to the pharmacy regarding her Oxycodone refill. [facility] reviewed MyChart to see Pharmacy is in contact w/ pt's PCP, Dr. Mcfarland. Pt wants to ensure medication will be filled before the weekend as the pharmacy is closed on the weekend. [facility] notified PCP. Pt reports that her mood has been improving as less family is now staying with her. Renny is now living in adifferent part of the home so that pt can have space. Pt states that this has given her peace. Pt reports no additional concerns at this time. O. Over the phone A. Pt alert and oriented x3- denies SI/HI. Pt states that her mood has been improving despite beingsick. Reviewed red flags- No additional concerns at this time P. Pt to call [facility] w/ additional questions or concerns Kajal SUMMERS, EXPLOSIVE SPECIALIST Behavioral Health Utility Systems Repairer Operator (Pronouns: she, her, hers) Care Coordination Integration home economics extension worker documented in this encounter Plan of Treatment Upcoming Encounters Date Type Specialty Care Team Description 06/18/2023 Office Visit Family Medicine Eliza Mcfarland MD [address] [place] [address] Scheduled Procedures Name Priority Associated Diagnoses Date/Ti me ESOPHAGOGASTRODUODENOSCOPY ( EGD), FLEXIBLE, TRANSORAL, DIAGNOSTIC Epigastric pain Health Maintenance Due Date Last Done Comments DISCUSS TOBACCO CESSATION (REFER TO SMARTSET #6818) 1970 Hepatitis B (1 of 3 - 3-dose series) 1970 HIV Screening 1985 Albumin/Creatinine Ratio 01/29/1988 Alpha-1 Antitrypsin 01/29/1988 Pap Smear 1991 Cervical Cancer Screening 01/29/2000 HPV/Co-Test 01/29/2000 Mammogram 2010 Cologuard 2015 Colonoscopy 2015 Colorectal Cancer Screening 2015 Fecal Occult Blood Test 2015 Sigmoidoscopy 2015 Depression Screening 04/30/2015 04/30/2014 *COPD SEVERITY VERIFIED BY PFT 12/26/2015 LUNG CANCER SCREENING - USE SMARTSET [id number] 01/29/2020 COVID-19 Vaccine ( - 2022- season) [...] the patient have Health Care Power of Shank Burnisher? No Code Status History Code Status Date [...] Advance Directives occurred with: Patient Care Teams Ironer Sock Relationship Specialty Start Date End Date Eliza Mcfarland MD [address] [place] [address] PCP - General Family Medicine 12/09/21 documented as of this encounter
--- OUTSIDE RECORDS SUMMARY | 2023-07-14 03:43 | External Medical Summary | Summary of Care ---
Author Name Unknown Organization [facility] Address [address] [place] [address] Phone [phone] Care Team Providers Care Bed Spring Maker Name Role Phone Eliza Mcfarland MD Primary Care Prov ider Reason for Visit * Reason Comments case management Encounter Details Date Type Department Care Team Description 03/01/2023 Aquarium Tank AttendantJack Frame Tender[address] [phone] Isabel Christensen, RN [address] [place] [address] Medical home patient encounter* Allergies Active Allergy Reactions Severity Noted Date Comments Codeine Nausea/vomiting High 03/20/2014 Eggs Or Egg-Derived Products Nausea/vomiting 01/23/2023 Naloxone Nausea/vomiting 04/07/2022 Other reaction(s): rash/hives Tramadol Hives High 03/20/2014 Hydrocodone-Acetaminophen Nausea/vomiting 12/09 Hives and nausea documented as of this encounter (statuses as of 03/01/2023) Medications Medication Sig Dispensed Refills Start Date [...] of vomiting 10 Capsule 4 01/23/2023 Active Aprepitant 40 MG Oral Capsule 1 capsule once daily on Day 2 and Day 3 of vomiting 10 Capsule 4 01/23/2023 Active [...] before bedtime. 60 Tablet 3 01/23/2023 Active Prochlorperazine Maleate 10 MG Oral Tablet (Compazine) Take 1 Tablet by mouth every 6 hours as needed for Nausea. 90 Tablet 2 02/06/2023 Active Meclizine HCl 25 MG Oral Tablet [...] blood pressure 180 Tablet 2 02/12/2023 Active Hospital, Clinic, or Other Facility Administered Medication Ordered Dose Route Frequency Start Date End Date Status vitamin b-12 (Cyanocobalamin) inj 1,000 mcgIndications:Acute nausea with nonbilious vomiting,B12 deficiency 1000 mcg IM [id number] 07/11/2022 06/12/2023 A ctive documented as of this encounter (statuses as of 03/01/2023) Active Problems Problem Noted Date History of [...] as of this encounter (statuses as of 03/01/2023) Resolved Problems Problem Noted Date Resolved Date [...] as of this encounter (statuses as of 03/01/2023) Immunizations Name Administration Dates Next Due Covid-19, Mrna, Lnp-s, Pf, B ivalent, 50 Mcg, IM, 12 yrs and above (Moderna) 04/24/2022 Pneumococcal Conjugate Vacci ne, 20-valent ([id number]) 07/04/2022 Seasonal Influenza, Quadriva lent, No Preserve, Mdck 06/14/2018 Seasonal Influenza, Recombin ant, RIV4, No Preserve 04/11/2022,06/02/2020 Seasonal Influenza, Split, I IV3, With Preserve, Inj 06/06/2011,05/24/2010,05/03/2009,2007,07/19/2004 TDAP (age 10 and older)(Boostrix) 09/21/2022 Zoster Vaccine Recombinant (Shingrix) 04/11/2022 documented as of this encounter Social History [...] Progress Notes * Isabel Christensen RN - 03/01/2023 10:33 AM EDT 1 week follow-up: States she is in pain today. Reports back and legs hurt. Denies swelling in legs and feet. Is unable to walk from one end of trailer to the other without becoming short of breath. Notes she is using oxygen more often during the day than prior. Having increased coughing with yellow/green mucous. Denies fevers/chills. Do you recommend starting a rescue kit? She has f/u with you on 03/05/23. Has been checking blood pressures daily on [facility] cuff, however, results are not transmitting. CM attempted to troubleshoot over the phone w/o success. Charleen is going to call [facility] directly and attempt totroubleshoot as well. CM sending TE to PCP re increased SOB and cough. Isabel Christensen RN documented in this encounter Plan of Treatment Upcoming Encounters Date Type Specialty Care Team Description 03/02/2023 Nurse Only Nurse Michelle [address] [address] 03/05/2023 Telemedicine Family Medicine Eliza Mcfarland MD [address] [place] [address] 03/21/2023 Office Visit Gastroenterology Destiney Adams CRNP [address] [place] [address] 04/19/2023 Imaging Radiology Scheduled Procedures Name Priority Associated Diagnoses Date/Ti me ESOPHAGOGASTRODUODENOSCOPY ( EGD), FLEXIBLE, TRANSORAL, DIAGNOSTIC Epigastric pain Health Maintenance Due Date Last Done Comments DISCUSS TOBACCO CESSATION (REFER TO SMARTSET #2754) 1970 Hepatitis B (1 of 3 - 3-dose series) 1970 HIV Screening 1985 Albumin/Creatinine Ratio 01/29/1988 Alpha-1 Antitrypsin 01/29/1988 Pap Smear 01/29/2000 Mammogram 2010 Cologuard 2015 Colonoscopy 2015 Colorectal Cancer Screening 2015 Fecal Occult Blood Test 2015 Sigmoidoscopy 2015 Depression Screening, Annual for Pts 12 and Over 04/30/2015 04/30/2014 *COPD SEVERITY VERIFIED BY PFT 12/26/2015 LUNG CANCER SCREENING - USE SMARTSET [id number] 01/29/2020 Influenza Vaccine (FLU shot) (#1) 2023 04/11/2022, 06/02/2020, 06/14/2018, Additional history exists GFR 02/13/2024 02/12/2023, 12/13, 12/26/2022, Additional history exists O2 ASSESSMENT COMPLETED IN PAST YEAR FOR COPD 02/13/2024 02/12/2023 Diabetes Screening 02/12/2026 02/12/2023, 0 01/09/2023, 12/26/2022, Additional history exists Lipid Panel 09/15/2027 09/15/2022, 05/14, 03/20/2014 DTaP,Tdap,and Td Vaccines (2 - Td or Tdap) 09/21/2032 09/21/2022 Zoster Vaccines Completed 04/11/2022, 01/07/2021 COVID-19 Vaccine Completed 04/24/2022 Pneumococcal Vaccine: Pediatrics (0 to 5 Years) and At-Risk Patients (6 to 64 Years) Completed 07/04/2022 Hepatitis C Screening Completed 12/26/2022 , 12/26/2022, 12/26/2022, Additional history exists GARDASIL-HPV IMMUNIZATION SERIES Aged Out No longer [...] the patient have Health Care Power of Bottle Selector? No Code Status History Code Status Date [...] Advance Directives occurred with: Patient Care Teams Bed Spring Maker Relationship Specialty Start Date End Date Eliza Mcfarland MD [address] [place] [address] PCP - General Family Medicine 12/09/21 documented as of this encounter
--- OUTSIDE RECORDS SUMMARY | 2023-07-14 03:43 | External Medical Summary | Summary of Care ---
Author Name Unknown Organization [facility] Address [address] [place] [address] Phone [phone] Care Team Providers Care Sweet Dough Mixer Name Role Phone Eliza Mcfarland MD Primary Care Prov ider Reason for Visit * Reason Onset Date Comments Appointment 03/07/2023 Encounter Details Date Type Department Care Team Description 03/07/2023 [place] [address] Eliza Mcfarland MD [address] [place] [address] Appointment Allergies Active Allergy Reactions Severity Noted Date Comments Codeine Nausea/vomiting High 03/20/2014 Eggs Or Egg-Derived Products Nausea/vomiting 01/23/2023 Naloxone Nausea/vomiting 04/07/2022 Other reaction(s): rash/hives Tramadol Hives High 03/20/2014 Hydrocodone-Acetaminophen Nausea/vomiting 12/09 Hives and nausea documented as of this encounter (statuses as of 03/07/2023) Medications Medication Sig Dispensed Refills Start Date [...] blood pressure 180 Tablet 2 02/12/2023 Active predniSONE 20 MG Oral Tablet (Deltasone) Take 2 Tablets by mouth in the morning for 5 days. 10 Tablet 0 03/01/2023 03/07/2023 Active levoFLOXacin 500 MG Oral Tablet (Levaquin) Take 1 Tablet by mouth in the morning for 5 days. 5 Tablet 0 03/05/2023 03/11/2023 Active Aprepitant 40 MG Oral Capsule 1 [...] with nonbilious vomiting,B12 deficiency 1000 mcg IM [id number] 07/11/2022 06/12/2023 A ctive documented as of this encounter (statuses as of 03/07/2023) Active Problems Problem Noted Date History of [...] as of this encounter (statuses as of 03/07/2023) Resolved Problems Problem Noted Date Resolved Date [...] as of this encounter (statuses as of 03/07/2023) Immunizations Name Administration Dates Next Due Covid-19, Mrna, Lnp-s, Pf, B ivalent, 50 Mcg, IM, 12 yrs and above (Moderna) 04/24/2022 Pneumococcal Conjugate Vacci ne, 20-valent ([id number]) 07/04/2022 Seasonal Influenza, Quadriva lent, No Preserve, [...] Miscellaneous Notes * Telephone Encounter - JR Parry - 03/07/2023 8:59 AM EDT Patient is aware an appointment has been scheduled for 04/13. documented in this encounter Plan of Treatment Upcoming Encounters Date Type Specialty Care Team Description 03/21/2023 Office Visit Gastroenterology Destiney Adams CRNP [address] [place] [address] 04/13/2023 Telemedicine Family Medicine Eliza Mcfarland MD [address] [place] [address] 04/19/2023 Imaging Radiology Scheduled Procedures Name Priority [...] 12/26/2015 LUNG CANCER SCREENING - USE SMARTSET [id number] 01/29/2020 Influenza Vaccine (FLU shot) (#1) 2023 [...] the patient have Health Care Power of Geriatric Personal Care Aide? No Code Status History Code Status Date [...] Advance Directives occurred with: Patient Care Teams Sweet Dough Mixer Relationship Specialty Start Date End Date Eliza Mcfarland MD [address] [place] [address] PCP - General Family Medicine 12/09/21 documented as of this encounter
--- OUTSIDE RECORDS SUMMARY | 2023-07-14 03:43 | External Medical Summary | Summary of Care ---
Author Name Unknown Organization [facility] Address [address] [place] [address] Phone [phone] Care Team Providers Care Animal Trainer Name Role Phone Eliza Mcfarland MD Primary Care Prov ider Reason for Visit * Reason Onset Date Comments case management 03/08/2023 Encounter Details Date Type Department Care Team Description 03/08/2023 Health Type Technician Telephone Care Coordination [address] [place] [address] Kajal Elam LSW [address] [place], [place] [phone] case management Allergies Active Allergy Reactions Severity Noted Date Comments Codeine Nausea/vomiting High 03/20/2014 Eggs Or Egg-Derived Products Nausea/vomiting 01/23/2023 Naloxone Nausea/vomiting 04/07/2022 Other reaction(s): rash/hives Tramadol Hives High 03/20/2014 Hydrocodone-Acetaminophen Nausea/vomiting 12/09 Hives and nausea documented as of this encounter (statuses as of 03/08/2023) Medications Medication Sig Dispensed Refills Start Date [...] blood pressure 180 Tablet 2 02/12/2023 Active levoFLOXacin 500 MG Oral Tablet (Levaquin) [...] with nonbilious vomiting,B12 deficiency 1000 mcg IM [id number] 07/11/2022 06/12/2023 A ctive documented as of this encounter (statuses as of 03/08/2023) Active Problems Problem Noted Date History of [...] as of this encounter (statuses as of 03/08/2023) Resolved Problems Problem Noted Date Resolved Date [...] as of this encounter (statuses as of 03/08/2023) Immunizations Name Administration Dates Next Due Covid-19, Mrna, Lnp-s, Pf, B ivalent, 50 Mcg, IM, 12 yrs and above (Moderna) 04/24/2022 Pneumococcal Conjugate Vacci ne, 20-valent ([id number]) 07/04/2022 Seasonal Influenza, Quadriva lent, No Preserve, [...] * Telephone Encounter - PARTH Randolph - 03/08/2023 4:26 PM EDT Images from the original note were not included. [facility] Goal Review: [facility] spoke w/ pt over the phone. [facility] confirmed pt's name and . Pt reports that despite her health issues, she is doing very well. Pt states that gets about 4-5 hours of sleep but then wakes upat at 4AM. Pt will be speaking with her PCP regarding this at her next follow up appointment in April. Pt declines additional [facility] assistance with this. [facility] reviewed pt's medications and appointments. Pt had changes to her nausea medication but additional concerns currently. Pt takes medications as prescribed. Pt denies any feelings of depression currently stating that she is understanding of her illness and that she knows she is irritable when she is sick so she has learned how to adapt with her social surroundings. Pt reports no additional questions, needs or concerns at this time. O. Over the phone A. Pt denies feelings of depression currently- talks to her children frequently. Reviewed red flagsand [facility] contact information. No concerns at this time P. Pt to call back with any additional needs in the next 4-6. Kajal Elam ACROBATIC RIGGER, COMMUNITY HEALTH NURSE SUPERVISOR Behavioral Health Health Type Technician (Pronouns: she, her, hers) Care Coordination Integration home school teacher documented in this encounter Plan of Treatment Upcoming Encounters Date Type Specialty Care Team Description 03/21/2023 Office Visit Gastroenterology Destiney Adams CRNP [address] [place] [address] 04/13/2023 Telemedicine Family Medicine Eliza Mcfarland MD [address] [place] [address] 04/19/2023 Imaging Radiology Scheduled Procedures Name Priority Associated Diagnoses Date/Ti me ESOPHAGOGASTRODUODENOSCOPY ( EGD), FLEXIBLE, TRANSORAL, DIAGNOSTIC Epigastric pain Health Maintenance Due Date Last Done Comments DISCUSS TOBACCO CESSATION (REFER TO SMARTSET #2904) 1970 Hepatitis B (1 of 3 - [...] 12/26/2015 LUNG CANCER SCREENING - USE SMARTSET [id number] 01/29/2020 Influenza Vaccine (FLU shot) (#1) 2023 [...] the patient have Health Care Power of Diploma Maker? No Code Status History Code Status Date [...] Advance Directives occurred with: Patient Care Teams Animal Trainer Relationship Specialty Start Date End Date Eliza Mcfarland MD [address] [place] [address] PCP - General Family Medicine 12/09/21 documented as of this encounter
--- OUTSIDE RECORDS SUMMARY | 2023-07-14 03:43 | External Medical Summary | Summary of Care ---
Author Name Unknown Organization [facility] Address [address] [place] [address] Phone [phone] Care Team Providers Care Shelver Name Role Phone Eliza Mcfarland MD Primary Care Prov ider Reason for Referral * Precert (Within 10 days (routine)) - Pending Review Specialty Diagnoses / Procedures Referred By Contac t Referred To Contact Radiology Diagnoses Cyclic vomiting syndrome Procedures NM HEPATOBILIARY SYSTEM WITH PHARMACOLOGIC INTERVENTION Eliza Mcfarland MD [address] [place] [address] Referral ID Status Reason Start Date Expiration Date V isits Requested Visits Authorized [id number] Pending Review 03/05/2023 999 999 Reason for Visit * Reason Comments Follow Up Encounter Details Date Type Department Care Team Description 03/05/2023 [place] [address] Eliza Mcfarland MD [address] [place] [address] Bronchitis, complicated*; Cyclic vomiting syndrome Allergies Active Allergy Reactions Severity Noted Date Comments Codeine Nausea/vomiting High 03/20/2014 Eggs Or Egg-Derived Products Nausea/vomiting 01/23/2023 Naloxone Nausea/vomiting 04/07/2022 Other reaction(s): rash/hives Tramadol Hives High 03/20/2014 Hydrocodone-Acetaminophen Nausea/vomiting 12/09 Hives and nausea documented as of this encounter (statuses as of 03/05/2023) Medications Medication Sig Dispensed Refills Start Date [...] 01, 2023. 90 Tablet 0 03/01/2023 Active oxyCODONE-Acetam inophen 10-325 MG Oral Tablet [...] 5 days. 10 Tablet 0 03/01/2023 3 Active levoFLOXacin 500 MG Oral Tablet (Levaquin) Take 1 Tablet by mouth in the morning for 5 days. 5 Tablet 0 03/05/2023 3 Active Aprepitant 40 MG Oral Capsule 1 capsule once daily on Day 2 and Day 3 of vomiting 10 Capsule 4 03/05/2023 Active Prochlorperazine Maleate 10 MG Oral Tablet (Compazine) Take 1 Tablet by mouth every 6 hours as needed for Nausea. 30 Tablet 2 03/05/2023 Active Aprepitant 40 MG Oral Capsule 1 capsule once daily on Day 2 and Day 3 of vomiting 10 Capsule 4 01/23/2023 3 Discontinue d(Refill) Prochlorperazine Maleate 10 MG Oral Tablet (Compazine) Take 1 Tablet by mouth every 6 hours as needed for Nausea. 90 Tablet 2 02/06/2023 3 Discontinue d(Refill) Azithromycin 250 MG Oral Tablet (Zithromax) Take 2 tabs by mouth on the first day, then 1 tab daily on days two through five 6 Tablet 0 03/01/2023 3 Discontinue d(End of Procedure) Hospital, Clinic, or Other Facility Administered Medication Ordered Dose Route Frequency Start Date End Date Status vitamin b-12 (Cyanocobalamin) inj 1,000 mcgIndications:Acute nausea with nonbilious vomiting,B12 deficiency 1000 mcg IM [id number] 07/11/2022 06/12/2023 A ctive documented as of this encounter (statuses as of 03/05/2023) Active Problems Problem Noted Date History of appendectomy 12/26/2022 COPD, severe 12/26/2022 Intractable nausea and vomiting 12/22/19 GE[place]GINA (acute kidney injury) 09/14/2022 Acute hyponatremia [...] as of this encounter (statuses as of 03/05/2023) Resolved Problems Problem Noted Date Resolved Date [...] with Interferon HCV RNA negative as of 2017 documented as of this encounter (statuses as of 03/05/2023) Immunizations Name Administration Dates Next Due Covid-19, Mrna, Lnp-s, Pf, B ivalent, 50 Mcg, IM, 12 yrs and above (Moderna) 04/24/2022 Pneumococcal Conjugate Vacci ne, 20-valent ([id number]) 07/04/2022 Seasonal Influenza, Quadriva lent, No Preserve, [...] Progress Notes * Eliza Mcfarland MD - 03/05/2023 10:47 AM EDT Images from the original note were not included. Portions of this record may have been dictated using voice recognition software. Variations in spelling and in vocabulary are possible and unintentional. Some errors may not be recognized or corrected at time of dictation. History of Present Illness Charleen Mathis is a 53 year old female that presents for Follow Up Current URI, started Abx but has not had any improvement. Some wheezing and shortness of breath. Onnocturnal oxygen. Has been using during the day due to shortness of breath. Has not found any significant improvement with current antibiotic as well as prednisone burst. Actually having more nausea with prednisone, not typically a reaction that she has but patient does have cyclic vomiting syndrome etiology unknown. She is due for HIDA scan, unable to complete gastric emptying due to intoleranceof eggs. Physical Exam There were no vitals filed for this visit. Physical Exam Constitutional: Appearance: She is ill-appearing. HENT: Head: Normocephalic and atraumatic. Eyes: Extraocular Movements: Extraocular movements intact. Pulmonary: Effort: Pulmonary effort is normal. Breath sounds: Rhonchi (audible with cough) present. Musculoskeletal: Cervical back: Normal range of motion. Neurological: General: No focal deficit present. Mental Status: She is alert. Assessment and Plan Bronchitis, complicated Stop prednisone as it is causing significant nausea, patient advised to repeat 40 mg of Emend, compazine if not improved Stop Zithromax and recommend levofloxacin for 5 days, if no improvement will need [id number] visit Recommend using albuterol per nebulizer every 4 hours and as needed. Cyclic vomiting syndrome Currently stable still need to complete workup, patient unable to complete gastric emptying study due to her intolerance of aches, ultrasound has been negative recommend HIDA scan next. - NM HEPATOBILIARY SYSTEM WITH PHARMACOLOGIC INTERVENTION Wrap-Up Follow Up: Return in about 1 month (around 04/05/2023). Telemedicine: Patient location: HOME. I was in a hospital or clinic location. After connecting through televideo,patient was verified with two unique identifiers. Patient (or authorized legal tax compliance representative) was then informed that this was a Telemedicine visit and being conducted confidentially over secure lines. Methods to assure confidentiality were taken. Patient acknowledged consent and understanding of pr ivacy and security of the Telemedicine visit. The patient agreed to participate. documented in this encounter Nursing Notes * Kadeem Bess LPN - 03/05/2023 10:35 AM EDT Spoke with pt over the phone to room for appt. Pt has been ill the last three days but states this appt is just for f/u. No new concerns. BP monitoring keeps reading error, unable to get a reading. Pt had a medication change at recent ED visit but chart was already up to date. documented in this encounter Plan of Treatment Upcoming Encounters Date Type Specialty Care Team Description 03/21/2023 Office Visit Gastroenterology Destiney Adams CRNP [address] [place] [address] 04/19/2023 Imaging Radiology Scheduled Orders Name Type Priority Associated Diagnoses Orde r Schedule NM HEPATOBILIARY SYSTEM WITH PHARMACOLOGIC INTERVENTION Medical Imaging Routine Cyclic vomiting syndrome Ordered: 03/05/2023 Scheduled Procedures Name Priority Associated Diagnoses Date/Ti me ESOPHAGOGASTRODUODENOSCOPY ( EGD), FLEXIBLE, TRANSORAL, DIAGNOSTIC Epigastric pain Health Maintenance Due Date Last Done Comments DISCUSS TOBACCO CESSATION (REFER TO SMARTSET #8221) 1970 Hepatitis B (1 of 3 - 3-dose series) 1970 HIV Screening 1985 Albumin/Creatinine Ratio 01/29/1988 Alpha-1 Antitrypsin 01/29/1988 Pap Smear 01/29/2000 Mammogram 2010 Cologuard 2015 Colonoscopy 2015 Colorectal Cancer Screening 2015 Fecal Occult Blood Test 2015 Sigmoidoscopy 2015 Depression Screening, Annual for Pts 12 and Over 04/30/2015 04/30/2014 *COPD SEVERITY VERIFIED BY PFT 12/26/2015 LUNG CANCER SCREENING - USE SMARTSET [id number] 01/29/2020 Influenza Vaccine (FLU shot) (#1) 2023 [...] as of this encounter Visit Diagnoses Diagnosis Bronchitis, complicated- Primary Bronchitis, not specified as acute or chronic Cyclic vomiting syndrome Persistent vomiting documented in this encounter Advance Directives Latest Code Status on File Code Status Date Activated Date Inactivated Comments Full Code 12/21/2022 2:17 PM 12/22/2022 1:45 PM This order reflects the patients wishes and were consensually agreed upon. Question Answer Comments Discussion of Advance Directives occurred with: Patient Does the patient have a Living Will? No Does the patient have Health Care Power of Ciaio Counter Molder? No Code Status History Code Status Date [...] Advance Directives occurred with: Patient Care Teams Shelver Relationship Specialty Start Date End Date Eliza Mcfarland MD [address] [place] [address] PCP - General Family Medicine 12/09/21 documented as of this encounter
--- OUTSIDE RECORDS SUMMARY | 2023-07-14 03:43 | External Medical Summary | Summary of Care ---
Author Name Unknown Organization [facility] Address [address] [place] [address] Phone [phone] Care Team Providers Care Automotive Services Manager Name Role Phone Eliza Mcfarland MD Primary Care Prov ider Reason for Visit * Reason Onset Date Comments case management 03/08/2023 Encounter Details Date Type Department Care Team Description 03/08/2023 Nursing Informatics Specialist Telephone [address] [phone] Isabel Christensen, RN [address] [place] [address] case management Allergies Active Allergy [...] with nonbilious vomiting,B12 deficiency 1000 mcg IM [id number] 07/11/2022 06/12/2023 A ctive documented as of [...] (Moderna) 04/24/2022 Pneumococcal Conjugate Vacci ne, 20-valent ([id number]) 07/04/2022 Seasonal Influenza, Quadriva lent, No Preserve, [...] Telephone Encounter - Isabel Christensen RN - 03/08/2023 12:15 PM EDT Tier 2 - 1 week f/u 1. Follow-up Routine 2. Attempted Phone Call First Attempt 3. Call Outcome Unable to Leave Message - mailbox is full 4. Plan To attempt another outreach documented in this encounter Plan of Treatment Upcoming Encounters Date Type Specialty Care Team Description 03/21/2023 Office Visit Gastroenterology Destiney Adams CRNP [address] [place] [address] 04/13/2023 Telemedicine Family Medicine Eliza Mcfarland MD [address] [place] [address] 04/19/2023 Imaging Radiology Scheduled Procedures Name Priority [...] 12/26/2015 LUNG CANCER SCREENING - USE SMARTSET [id number] 01/29/2020 Influenza Vaccine (FLU shot) (#1) 2023 [...] patient have Health Care Power of Color Shop Helper? No Code Status History Code Status Date [...] Advance Directives occurred with: Patient Care Teams Automotive Services Manager Relationship Specialty Start Date End Date Eliza Mcfarland MD [address] [place] [address] PCP - General Family Medicine 12/09/21 documented as of this encounter
--- OUTSIDE RECORDS SUMMARY | 2023-07-14 03:43 | External Medical Summary | Summary of Care ---
Author Name Unknown Organization [facility] Address [address] [place] [address] Phone [phone] Care Team Providers Care Dry Color Tester Name Role Phone Eliza Mcfarland MD Primary Care Prov ider Reason for Visit * Reason Onset Date Comments case management 03/26/2023 Encounter Details Date Type Department Care Team Description 03/26/2023 Crate Maker Telephone Care Coordination [address] [place] [address] Kajal Elam LSW [address] [place], [place] [phone] case management Allergies Active Allergy Reactions Severity Noted Date Comments Codeine Nausea/vomiting High 03/20/2014 Eggs Or Egg-Derived Products Nausea/vomiting 01/23/2023 Naloxone Nausea/vomiting 04/07/2022 Other reaction(s): rash/hives Tramadol Hives High 03/20/2014 Hydrocodone-Acetaminophen Nausea/vomiting 12/09 Hives and nausea documented as of this encounter (statuses as of 03/27/2023) Medications Medication Sig Dispensed Refills Start Date [...] with nonbilious vomiting,B12 deficiency 1000 mcg IM [id number] 07/11/2022 06/12/2023 A ctive documented as of this encounter (statuses as of 03/27/2023) Active Problems Problem Noted Date History of [...] as of this encounter (statuses as of 03/27/2023) Resolved Problems Problem Noted Date Resolved Date [...] as of this encounter (statuses as of 03/27/2023) Immunizations Name Administration Dates Next Due Covid-19, Mrna, Lnp-s, Pf, B ivalent, 50 Mcg, IM, 12 yrs and above (Moderna) 04/24/2022 Pneumococcal Conjugate Vacci ne, 20-valent ([id number]) 07/04/2022 Seasonal Influenza, Quadriva lent, No Preserve, [...] encounter Miscellaneous Notes * Telephone Encounter - Meghan Cline RN - 03/27/2023 2:58 PM EDT Updated Charleen with recommendations. She notes that she has stopped taking the Seroquel because she does not like the way it makes her feel. She states it causes her heart to race. She has not been taking the increased dose of clonazepam but is aware that she can take an extra dose for the next couple of days. * Telephone Encounter - Eliza Mcfarland MD - 03/27/2023 10:06 AM EDT Reviewed. My condolences. Please advise patient that an increase in clonazepam likely not to have significant impact. I would advise patient that she can take an additional Seroquel at bedtime for sleep, 2 tablets at bedtime for sleep. If absolutely indicated she may take an additional clonazepam during the day that is, instead of twice daily she may take 3 times daily for a short period of time.No more than 2-3 days. Advise patient that she absolutely cannot take oxycodone and clonazepam and or Seroquel concurrently. * Telephone Encounter - PARTH Randolph - 03/26/2023 2:30 PM EDT Images from the original note were not included. S. [facility] received voicemail from pt. [facility] called pt back. Pt reports that her father had a stroke during surgery and was being taken off of life support with no brain function. Pt was tearful stating that her blood pressure was over 210 and that she did not feel that her Klonopin was working. Pt's RNCM is OOO. [facility] called w/ pt to Dr. Mcfarland's office and was triaged by an RN. Pt retook her blood pressure with RN on the line. Pt reports having a headache in her jew 6/10 on the pain scale. RN advised pt on her medications, to continue to stay hydrated and to take care of herself as she grieves her father. O. Pt reports that she is doing okay- just feeling stressed and sad. Pt has not been able to eat orsleep. Pt states that she is able to keep herself safe. [facility] encouraged pt to provide self care including eating light meal and resting/sleep. [facility] provided pt w/ contact number for PCP if there are any urgent changes and advised pt to go to the hospital if she there are changes and she is unable to reach PCP. Pt verbalized understanding and agreement w/ this plan of care P. Pt is to call [facility] w/ any additional questions or concerns. Kajal SUMMERS, PRINT PRODUCTION MANAGER Behavioral Health Crate Maker (Pronouns: she, her, hers) Care Coordination Integration home aide documented in this encounter Plan of Treatment Upcoming Encounters Date Type Specialty Care Team Description 04/13/2023 Telemedicine Family Medicine Eliza Mcfarland MD [address] [place] [address] 04/19/2023 Imaging Radiology Scheduled Procedures Name Priority Associated Diagnoses Date/Ti me ESOPHAGOGASTRODUODENOSCOPY ( EGD), FLEXIBLE, TRANSORAL, DIAGNOSTIC Epigastric pain Health Maintenance Due Date Last Done Comments DISCUSS TOBACCO CESSATION (REFER TO SMARTSET #3118) 1970 Hepatitis B (1 of 3 - [...] 12/26/2015 LUNG CANCER SCREENING - USE SMARTSET [id number] 01/29/2020 Influenza Vaccine (FLU shot) (#1) 2023 [...] the patient have Health Care Power of Rhinologist? No Code Status History Code Status Date [...] Advance Directives occurred with: Patient Care Teams Dry Color Tester Relationship Specialty Start Date End Date Eliza Mcfarland MD [address] [place] [id number] PCP - General Family Medicine 12/09/21 documented as of this encounter
--- OUTSIDE RECORDS SUMMARY | 2023-07-14 03:43 | External Medical Summary | Summary of Care ---
Author Name Unknown Organization [facility] Address [address] [place] [address] Phone [phone] Care Team Providers Care Automatic Machines Supervisor Name Role Phone Eliza Mcfarland MD Primary Care Prov ider Reason for Visit * Reason Onset Date Comments case management 02/22/2023 Encounter Details Date Type Department Care Team Description 02/22/2023 Dry Mixer Telephone Care Coordination [address] [place] [address] Kajal Elam LSW [address], [place] [phone] case management Allergies Active Allergy Reactions Severity Noted Date Comments Codeine Nausea/vomiting High 03/20/2014 Eggs Or Egg-Derived Products Nausea/vomiting 01/23/2023 Naloxone Nausea/vomiting 04/07/2022 Other reaction(s): rash/hives Tramadol Hives High 03/20/2014 Hydrocodone-Acetaminophen Nausea/vomiting 12/09 Hives and nausea documented as of this encounter (statuses as of 02/22/2023) Medications Medication Sig Dispensed Refills Start Date [...] with nonbilious vomiting,B12 deficiency 1000 mcg IM [id number] 07/11/2022 06/12/2023 A ctive documented as of this encounter (statuses as of 02/22/2023) Active Problems Problem Noted Date History of [...] as of this encounter (statuses as of 02/22/2023) Resolved Problems Problem Noted Date Resolved Date [...] as of this encounter (statuses as of 02/22/2023) Immunizations Name Administration Dates Next Due Covid-19, Mrna, Lnp-s, Pf, B ivalent, 50 Mcg, IM, 12 yrs and above (Moderna) 04/24/2022 Pneumococcal Conjugate Vacci ne, 20-valent ([id number]) 07/04/2022 Seasonal Influenza, Quadriva lent, No Preserve, [...] * Telephone Encounter - PARTH Randolph - 02/22/2023 12:51 PM EDT Images from the original note were not included. SVishal KOMAL received incoming call from pt. Pt reports that she was seen in the hospital in early February and the last three days has had increased swelling in her feet, ankles, and is now spreading up her knee. Pt has not spoken with RN. [facility] notified RNKOMAL Hall of pt's symptoms. Isabel will be reaching out to patient regarding her symptoms. Pt had no additional questions at this time O. Over the phone A. Pt was worried discussing her worsening swelling. [facility] provided support throughout the call. P. CM to f/u with pt in 1-2 weeks PARTH Martin [facility] Dry Mixer (Pronouns: she, her, hers) Care Coordination Integration home supervisor documented in this encounter Plan of Treatment Upcoming Encounters Date Type Specialty Care Team Description 02/23/2023 [facility] Visit [facility] [phone] 03/02/2023 Nurse Only Nurse Lore Martinez [facility] [phone] 03/05/2023 Telemedicine Family Medicine Eliza Mcfarland MD [address] [place] [address] [address] 03/21/2023 Office Visit Gastroenterology Destiney Adams CRNP [address] [place] [address] 04/19/2023 Imaging Radiology Scheduled Procedures Name Priority Associated Diagnoses Date/Ti me ESOPHAGOGASTRODUODENOSCOPY ( EGD), FLEXIBLE, TRANSORAL, DIAGNOSTIC Epigastric pain Health Maintenance Due Date Last Done Comments DISCUSS TOBACCO CESSATION (REFER TO SMARTSET #0583) 1970 Hepatitis B (1 of 3 - 3-dose series) 1970 HIV Screening 1985 Albumin/Creatinine Ratio 01/29/1988 Alpha-1 Antitrypsin 01/29/1988 Pap Smear 01/29/2000 Mammogram 2010 Cologuard 2015 Colonoscopy 2015 Colorectal Cancer Screening 2015 Fecal Occult Blood Test 2015 Sigmoidoscopy 2015 Depression Screening, Annual for Pts 12 and Over 04/30/2015 04/30/2014 *COPD SEVERITY VERIFIED BY PFT 12/26/2015 LUNG CANCER SCREENING - USE SMARTSET [id number] 01/29/2020 Influenza Vaccine (FLU shot) (#1) 2023 [...] the patient have Health Care Power of Epidemiology Internship? No Code Status History Code Status Date [...] Advance Directives occurred with: Patient Care Teams Automatic Machines Supervisor Relationship Specialty Start Date End Date Eliza Mcfarland MD [address] [place] [address] PCP - General Family Medicine 12/09/21 documented as of this encounter
--- OUTSIDE RECORDS SUMMARY | 2023-07-14 03:43 | External Medical Summary | Summary of Care ---
Author Name Unknown Organization [facility] Address [address] [place] [address] Phone [phone] Care Team Providers Care Marketing Co Op Name Role Phone Eliza Mcfarland MD Primary Care Prov ider Reason for Visit * Reason Onset Date Comments case management 03/23/2023 Encounter Details Date Type Department Care Team Description 03/23/2023 Manager Infrastructure Telephone [address] [phone] Isabel Christensen, RN [address] [place] [address] case management Allergies Active Allergy Reactions Severity Noted Date Comments Codeine Nausea/vomiting High 03/20/2014 Eggs Or Egg-Derived Products Nausea/vomiting 01/23/2023 Naloxone Nausea/vomiting 04/07/2022 Other reaction(s): rash/hives Tramadol Hives High 03/20/2014 Hydrocodone-Acetaminophen Nausea/vomiting 12/09 Hives and nausea documented as of this encounter (statuses as of 03/23/2023) Medications Medication Sig Dispensed Refills Start Date [...] with nonbilious vomiting,B12 deficiency 1000 mcg IM [id number] 07/11/2022 06/12/2023 A ctive documented as of this encounter (statuses as of 03/23/2023) Active Problems Problem Noted Date History of [...] as of this encounter (statuses as of 03/23/2023) Resolved Problems Problem Noted Date Resolved Date [...] as of this encounter (statuses as of 03/23/2023) Immunizations Name Administration Dates Next Due Covid-19, Mrna, Lnp-s, Pf, B ivalent, 50 Mcg, IM, 12 yrs and above (Moderna) 04/24/2022 Pneumococcal Conjugate Vacci ne, 20-valent ([id number]) 07/04/2022 Seasonal Influenza, Quadriva lent, No Preserve, [...] Telephone Encounter - Isabel Christensen RN - 03/23/2023 10:33 AM EDT 1. Follow-up Routine 2. Attempted Phone Call Second Attempt 3. Call Outcome Unable to Leave Message - mailbox full 4. Plan To attempt another outreach documented in this encounter Plan of Treatment Upcoming Encounters Date Type Specialty Care Team Description 04/13/2023 Telemedicine Family Medicine Eliza Mcfarland MD [address] [place] [address] 04/19/2023 Imaging Radiology Scheduled Procedures Name Priority Associated Diagnoses Date/Ti me ESOPHAGOGASTRODUODENOSCOPY ( EGD), FLEXIBLE, TRANSORAL, DIAGNOSTIC Epigastric pain Health Maintenance Due Date Last Done Comments DISCUSS TOBACCO CESSATION (REFER TO SMARTSET #6536) 1970 Hepatitis B (1 of 3 - [...] 12/26/2015 LUNG CANCER SCREENING - USE SMARTSET [id number] 01/29/2020 Influenza Vaccine (FLU shot) (#1) 2023 [...] the patient have Health Care Power of Combustion Engineer? No Code Status History Code Status Date [...] Advance Directives occurred with: Patient Care Teams Marketing Co Op Relationship Specialty Start Date End Date Eliza Mcfarland MD [address] [place] [address] PCP - General Family Medicine 12/09/21 documented as of this encounter
--- OUTSIDE RECORDS SUMMARY | 2023-07-14 03:43 | External Medical Summary | Summary of Care ---
Author Name Unknown Organization [facility] Address [address] [place] [address] Phone [phone] Care Team Providers Care Asphalt Worker Name Role Phone Eliza Mcfarland MD Primary Care Prov ider Reason for Visit * Reason Onset Date Comments case management 03/26/2023 Encounter Details Date Type Department Care Team Description 03/26/2023 Channel Specialist Telephone Care Coordination [address] [place] [address] Kajal Elam LSW [address] [place], [place] [phone] case management Allergies Active Allergy Reactions Severity Noted Date Comments Codeine Nausea/vomiting High 03/20/2014 Eggs Or Egg-Derived Products Nausea/vomiting 01/23/2023 Naloxone Nausea/vomiting 04/07/2022 Other reaction(s): rash/hives Tramadol Hives High 03/20/2014 Hydrocodone-Acetaminophen Nausea/vomiting 12/09 Hives and nausea documented as of this encounter (statuses as of 03/26/2023) Medications Medication Sig Dispensed Refills Start Date [...] with nonbilious vomiting,B12 deficiency 1000 mcg IM [id number] 07/11/2022 06/12/2023 A ctive documented as of this encounter (statuses as of 03/26/2023) Active Problems Problem Noted Date History of [...] as of this encounter (statuses as of 03/26/2023) Resolved Problems Problem Noted Date Resolved Date [...] as of this encounter (statuses as of 03/26/2023) Immunizations Name Administration Dates Next Due Covid-19, Mrna, Lnp-s, Pf, B ivalent, 50 Mcg, IM, 12 yrs and above (Moderna) 04/24/2022 Pneumococcal Conjugate Vacci ne, 20-valent ([id number]) 07/04/2022 Seasonal Influenza, Quadriva lent, No Preserve, [...] the original note were not included. S. [facility] received voicemail from pt. [facility] called pt back. Pt reports that her father had a stroke during surgery and was being taken off of life support with no brain function. Pt was tearful stating that her blood pressure was over 210 and that she did not feel that her Klonopin was working. Pt's RNCM is PAYAL. [facility] called w/ pt to Dr. Mcfarland's office and was triaged by an RN. Pt retook her blood pressure with RN on the line. Pt reports having a headache in her advent 6/10 on the pain scale. RN advised pt on her medications, to continue to stay hydrated and to take care of herself as she grieves her father. O. Pt reports that she is doing okay- just feeling stressed and sad. Pt has not been able to eat orsleep. Pt states that she is able to keep herself safe. [facility] encouraged pt to provide self care including eating light meal and resting/sleep. [facility] provided pt w/ contact number for PCP if there are any urgent changes and advised pt to go to the hospital if she there are changes and she is unable to reach PCP. Pt verbalized understanding and agreement w/ this plan of care P. Pt is to call [facility] w/ any additional questions or concerns. Kajal Elam MSW, TYPE PHOTOGRAPHY SUPERVISOR Behavioral Health Channel Specialist (Pronouns: she, her, hers) Care Coordination Integration home care administrator documented in this encounter Plan of Treatment Upcoming Encounters Date Type Specialty Care Team Description 04/13/2023 Telemedicine Family Medicine Eliza Mcfarland MD [address] [place] [address] 04/19/2023 Imaging Radiology Scheduled Procedures Name Priority Associated Diagnoses Date/Ti me ESOPHAGOGASTRODUODENOSCOPY ( EGD), FLEXIBLE, TRANSORAL, DIAGNOSTIC Epigastric pain Health Maintenance Due Date Last Done Comments DISCUSS TOBACCO CESSATION (REFER TO SMARTSET #5713) 1970 Hepatitis B (1 of 3 - [...] 12/26/2015 LUNG CANCER SCREENING - USE SMARTSET [id number] 01/29/2020 Influenza Vaccine (FLU shot) (#1) 2023 [...] the patient have Health Care Power of Fish Rod Maker? No Code Status History Code Status [...] Advance Directives occurred with: Patient Care Teams Asphalt Worker Relationship Specialty Start Date End Date Eliza Mcfarland MD [address] [place] [address] PCP - General Family Medicine 12/09/21 documented as of this encounter
--- OUTSIDE RECORDS SUMMARY | 2023-07-14 03:43 | External Medical Summary | Summary of Care ---
Author Name Unknown Organization [facility] Address [address] [place] [address] Phone [phone] Care Team Providers Care Trial Attorney Name Role Phone Eliza Mcfarland MD Primary Care Prov ider Reason for Visit * Reason Onset Date Comments case management 03/26/2023 Encounter Details Date Type Department Care Team Description 03/26/2023 Display Coordinator Telephone Care Coordination [address] [place] [address] Kajal Elam LSW [address] [place], [place] [phone] case management Allergies Active Allergy Reactions Severity [...] with nonbilious vomiting,B12 deficiency 1000 mcg IM [id number] 07/11/2022 06/12/2023 A ctive documented as of [...] (Moderna) 04/24/2022 Pneumococcal Conjugate Vacci ne, 20-valent ([id number]) 07/04/2022 Seasonal Influenza, Quadriva lent, No Preserve, [...] encounter Miscellaneous Notes * Telephone Encounter - Eliza Mcfarland MD [...] the original note were not included. [facility]. [facility] received voicemail from pt. [facility] called pt back. Pt reports that her father had a stroke during surgery and was being taken off of life support with no brain function. Pt was tearful stating that her blood pressure was over 210 and that she did not feel that her Klonopin was working. Pt's RNCM is OOO. [facility] called w/ pt to Dr. Mcfarland's office and was triaged by an RN. Pt retook her blood pressure with RN on the line. Pt reports having a headache in her sabianism 6/10 on the pain scale. RN advised pt on her medications, to continue to stay hydrated and to take care of herself as she grieves her father. O. Pt reports that she is doing okay- just feeling stressed and sad. Pt has not been able to eat orsleep. Pt states that she is able to keep herself safe. [facility] encouraged pt to provide self care including eating light meal and resting/sleep. [facility] provided pt w/ contact number for PCP if there are any urgent changes and advised pt to go to the hospital if she there are changes and she is unable to reach PCP. Pt verbalized understanding and agreement w/ this plan of care P. Pt is to call [facility] w/ any additional questions or concerns. Kajal SUMMERS, DOUBLER OPERATOR Behavioral Health Display Coordinator (Pronouns: she, her, hers) Care Coordination Integration salesperson trailers and motor homes documented in this encounter Plan of Treatment Upcoming Encounters Date Type Specialty Care Team Description 04/13/2023 Telemedicine Family Medicine Eliza Mcfarland MD [address] [place] [address] 04/19/2023 Imaging Radiology Scheduled Procedures Name Priority Associated Diagnoses Date/Ti me ESOPHAGOGASTRODUODENOSCOPY ( EGD), FLEXIBLE, TRANSORAL, DIAGNOSTIC Epigastric pain Health Maintenance Due Date Last Done Comments DISCUSS TOBACCO CESSATION (REFER TO SMARTSET #3991) 1970 Hepatitis B (1 of 3 - [...] 12/26/2015 LUNG CANCER SCREENING - USE SMARTSET [id number] 01/29/2020 Influenza Vaccine (FLU shot) (#1) 2023 [...] the patient have Health Care Power of Mold Loft Worker? No Code Status History Code Status [...] Advance Directives occurred with: Patient Care Teams Trial Attorney Relationship Specialty Start Date End Date Eliza Mcfarland MD [address] [place] [address] PCP - General Family Medicine 12/09/21 documented as of this encounter
--- OUTSIDE RECORDS SUMMARY | 2023-07-14 03:43 | External Medical Summary | Summary of Care ---
Author Name Unknown Organization [facility] Address [address] [place] [address] Phone [phone] Care Team Providers Care Physician Allergist Immunologist Name Role Phone Eliza Mcfarland MD Primary Care Prov ider Reason for Visit * Reason Comments Blood Pressure Check Weight Check Encounter Details Date Type Department Care Team Description 03/02/2023 Nurse Only Ancillary [address] [phone] [place], Nurse g [address] [phone] Blood Pressure Check; Weight Check Allergies Active Allergy Reactions Severity Noted Date Comments Codeine Nausea/vomiting High 03/20/2014 Eggs Or Egg-Derived Products Nausea/vomiting 01/23/2023 Naloxone Nausea/vomiting 04/07/2022 Other reaction(s): rash/hives Tramadol Hives High 03/20/2014 Hydrocodone-Acetaminophen Nausea/vomiting 12/09 Hives and nausea documented as of this encounter (statuses as of 03/02/2023) Medications Medication Sig Dispensed Refills Start Date [...] and 10 mL before bedtime. 420 mL 01/23/2023 Active Famotidine 20 MG Oral Tablet [...] blood pressure 180 Tablet 2 02/12/2023 Active Azithromycin 250 MG Oral Tablet (Zithromax) Take 2 tabs by mouth on the first day, then 1 tab daily on days two through five 6 Tablet 0 03/01/2023 Active predniSONE 20 MG Oral Tablet (Deltasone) Take 2 Tablets by mouth in the morning for 5 days. 10 Tablet 0 03/01/2023 03/06/2023 Active Hospital, Clinic, or Other Facility Administered Medication Ordered Dose Route Frequency Start Date End Date Status vitamin b-12 (Cyanocobalamin) inj 1,000 mcgIndications:Acute nausea with nonbilious vomiting,B12 deficiency 1000 mcg IM [id number] 07/11/2022 06/12/2023 A ctive documented as of this encounter (statuses as of 03/02/2023) Active Problems Problem Noted Date History of [...] as of this encounter (statuses as of 03/02/2023) Resolved Problems Problem Noted Date Resolved Date [...] as of this encounter (statuses as of 03/02/2023) Immunizations Name Administration Dates Next Due Covid-19, Mrna, Lnp-s, Pf, B ivalent, 50 Mcg, IM, 12 yrs and above (Moderna) 04/24/2022 Pneumococcal Conjugate Vacci ne, 20-valent ([id number]) 07/04/2022 Seasonal Influenza, Quadriva lent, No Preserve, [...] Sign Reading Time Taken Comments Blood Pressure 122/80 03/02/2023 8:28 AM EDT Pulse - - Temperature - - Respiratory Rate - - Oxygen Saturation - - Inhaled Oxygen Concentration - - Weight 87.5 kg (193 lb) 03/02/2023 8:28 AM EDT Height - - Body Mass Index 31.63 01/09/2023 11:07 AM EDT documented in this encounter Functional Status Functional [...] as of this encounter Nursing Notes * Edis Feliciano LPN - 03/02/2023 8:28 AM EDT The patient has been properly identified by confirmation of name and date of . Chief Complaint Patient presents with Blood Pressure Check Weight Check Pt presents for b/p and weight check. I informed pt that medications were sent to her pharmacy. Verbalized understanding. Will return as scheduled or sooner if needed. documented in this encounter Plan of Treatment Upcoming Encounters Date Type Specialty Care Team Description 03/05/2023 Telemedicine Family Medicine Eliza Mcfarland MD [address] [place] [address] 03/21/2023 Office Visit Gastroenterology Destiney Adams CRNP [address] [facility] [place] [address] 04/19/2023 Imaging Radiology Scheduled Procedures Name Priority Associated Diagnoses Date/Ti me ESOPHAGOGASTRODUODENOSCOPY ( EGD), FLEXIBLE, TRANSORAL, DIAGNOSTIC Epigastric pain Health Maintenance Due Date Last Done Comments DISCUSS TOBACCO CESSATION (REFER TO SMARTSET #4287) 1970 Hepatitis B (1 of 3 - 3-dose series) 1970 HIV Screening 1985 Albumin/Creatinine Ratio 01/29/1988 Alpha-1 Antitrypsin 01/29/1988 Pap Smear 01/29/2000 Mammogram 2010 Cologuard 2015 Colonoscopy 2015 Colorectal Cancer Screening 2015 Fecal Occult Blood Test 2015 Sigmoidoscopy 2015 Depression Screening, Annual for Pts 12 and Over 04/30/2015 04/30/2014 *COPD SEVERITY VERIFIED BY PFT 12/26/2015 LUNG CANCER SCREENING - USE SMARTSET [id number] 01/29/2020 Influenza Vaccine (FLU shot) (#1) 2023 [...] the patient have Health Care Power of Enterprise Security Architect? No Code Status History Code Status Date [...] Advance Directives occurred with: Patient Care Teams Physician Allergist Immunologist Relationship Specialty Start Date End Date Eliza Mcfarland MD [address] [place] [address] PCP - General Family Medicine 12/09/21 documented as of this encounter
--- OUTSIDE RECORDS SUMMARY | 2023-07-14 03:43 | External Medical Summary | Summary of Care ---
Author Name Unknown Organization [facility] Address [address] [place] [address] Phone [phone] Care Team Providers Care Graduate Intern Name Role Phone Eliza Mcfarland MD Primary Care Prov ider Reason for Visit * Reason Onset Date Comments case management 03/01/2023 Encounter Details Date Type Department Care Team Description 03/01/[address] [address] Isabel Christensen, RN [address] [place] [address] case management Allergies Active Allergy [...] with nonbilious vomiting,B12 deficiency 1000 mcg IM [id number] 07/11/2022 06/12/2023 A ctive documented as of [...] (Moderna) 04/24/2022 Pneumococcal Conjugate Vacci ne, 20-valent ([id number]) 07/04/2022 Seasonal Influenza, Quadriva lent, No Preserve, [...] encounter Miscellaneous Notes * Telephone Encounter - Jama Hdez - 03/02/2023 8:07 AM EDT Nurses will inform patient when she is here for her nurse appointment today, 03/02/2023. * Telephone Encounter - Eliza Mcfarland MD - 03/01/2023 5:26 PM EDT Please notify patient medication sent for bronchitis * Telephone Encounter - Isabel Christensen RN - 03/01/2023 10:44 AM EDT Phone call to Charleen for 1 week f/u. She is reporting the following. + increased NORTON + cough productive of yellow/green mucous + feeling more congested + increased oxygen need during the day Denies fevers/chills Is unable to walk from one end of trailer to the other without becoming short of breath. Has f/u with you on 03/05/23. Do you recommend a rescue kit? documented in this encounter Plan of Treatment Upcoming Encounters Date Type Specialty Care Team Description 03/05/2023 Telemedicine Family Medicine Eliza Mcfarland MD [address] [place] [address] 03/21/2023 Office Visit Gastroenterology Destiney Adams CRNP [address] [place] [address] 04/19/2023 Imaging Radiology Scheduled Procedures Name Priority [...] 12/26/2015 LUNG CANCER SCREENING - USE SMARTSET [id number] 01/29/2020 Influenza Vaccine (FLU shot) (#1) 2023 [...] the patient have Health Care Power of Remote Computer Terminal Operator? No Code Status History Code Status [...] Advance Directives occurred with: Patient Care Teams Graduate Intern Relationship Specialty Start Date End Date Eliza Mcfarland MD [address] [place] [address] PCP - General Family Medicine 12/09/21 documented as of this encounter
--- OUTSIDE RECORDS SUMMARY | 2023-07-14 03:43 | External Medical Summary | Summary of Care ---
Author Name Unknown Organization [facility] Address [address] [place] [address] Phone [phone] Care Team Providers Care Machine Programmer Name Role Phone Eliza Mcfarland MD Primary Care Prov ider Reason for Visit * Reason Comments case management Encounter Details Date Type Department Care Team Description 03/09/2023 Front Office SpecialistCommunity Development Officer[address] [address] Isabel Christensen, RN [address] [place] [address] Medical home patient encounter* Allergies Active Allergy Reactions Severity Noted Date Comments Codeine Nausea/vomiting High 03/20/2014 Eggs Or Egg-Derived Products Nausea/vomiting 01/23/2023 Naloxone Nausea/vomiting 04/07/2022 Other reaction(s): rash/hives Tramadol Hives High 03/20/2014 Hydrocodone-Acetaminophen Nausea/vomiting 12/09 Hives and nausea documented as of this encounter (statuses as of 03/09/2023) Medications Medication Sig Dispensed Refills Start Date [...] with nonbilious vomiting,B12 deficiency 1000 mcg IM [id number] 07/11/2022 06/12/2023 A ctive documented as of this encounter (statuses as of 03/09/2023) Active Problems Problem Noted Date History of appendectomy 12/26/2022 COPD, severe 12/26/2022 Intractable nausea and vomiting 12/22/19 23 GEORGINA (acute kidney injury) 09/14/2022 Acute hyponatremia 09/14/2022 History of hepatitis C 07/25/2022 EJSSIE (generalized anxiety disorder) 07/04 Abdominal pain 06/12/2022 [...] as of this encounter (statuses as of 03/09/2023) Resolved Problems Problem Noted Date Resolved Date [...] as of this encounter (statuses as of 03/09/2023) Immunizations Name Administration Dates Next Due Covid-19, Mrna, Lnp-s, Pf, B ivalent, 50 Mcg, IM, 12 yrs and above (Moderna) 04/24/2022 Pneumococcal Conjugate Vacci ne, 20-valent ([id number]) 07/04/2022 Seasonal Influenza, Quadriva lent, No Preserve, [...] Progress Notes * Isabel Christensen RN - 03/09/2023 1:19 PM EDT 1 week follow-up: Reports she is having a bad day. Had a lot of stress last evening and did not sleep well. When she awoke this morning she was nauseated. She has not had any vomiting. She took emend and compazine both. She has been drinking apple juice to stay hydrated. She has not had anything to eat today due to the nausea. Blood pressure today is 140/93 today which she reports is good for her. She has not yet received replacement cuff. BP results are not transmitting to . If she does not receive replacement by next week will call [facility] for update on order. Isabel Christensen RN documented in this encounter Plan of Treatment Upcoming Encounters Date Type Specialty Care Team Description 03/21/2023 Office Visit Gastroenterology Destiney Adams CRNP [address] [facility] [place] [address] 04/13/2023 Telemedicine Family Medicine Eliza Mcfarland MD [address] [place] [address] 04/19/2023 Imaging Radiology Scheduled Procedures Name Priority Associated Diagnoses Date/Ti me ESOPHAGOGASTRODUODENOSCOPY ( EGD), FLEXIBLE, TRANSORAL, DIAGNOSTIC Epigastric pain Health Maintenance Due Date Last Done Comments DISCUSS TOBACCO CESSATION (REFER TO SMARTSET #3466) 1970 Hepatitis B (1 of 3 - [...] 12/26/2015 LUNG CANCER SCREENING - USE SMARTSET [id number] 01/29/2020 Influenza Vaccine (FLU shot) (#1) 2023 [...] the patient have Health Care Power of Rest Room Matron? No Code Status History Code Status Date [...] Advance Directives occurred with: Patient Care Teams Machine Programmer Relationship Specialty Start Date End Date Eliza Mcfarland MD [address] [place] [address] PCP - General Family Medicine 12/09/21 documented as of this encounter
--- OUTSIDE RECORDS SUMMARY | 2023-07-14 03:43 | External Medical Summary | Summary of Care ---
Author Name Unknown Organization [facility] Address [address] [place] [address] Phone [phone] Care Team Providers Care Emt Driver Name Role Phone Eliza Mcfarland MD Primary Care Prov ider Reason for Visit * Reason Onset Date Comments case management 02/22/2023 Encounter Details Date Type Department Care Team Description 02/22/[address] [address] Isabel guaman RN [address] [place] [address] case management Allergies Active Allergy [...] with nonbilious vomiting,B12 deficiency 1000 mcg IM [id number] 07/11/2022 06/12/2023 A ctive documented as of [...] (Moderna) 04/24/2022 Pneumococcal Conjugate Vacci ne, 20-valent ([id number]) 07/04/2022 Seasonal Influenza, Quadriva lent, No Preserve, [...] Miscellaneous Notes * Telephone Encounter - Isabel guaman RN - 02/22/2023 12:51 PM EDT Line Patroller Progress Note: Date: 02/22/23 Assgned Patient Tier: 2 Connected with patient via telephone. Verified patient name/. Advised patient that call is beingrecorded for quality and training purposes. Assessment: Pt. noted the following: Reports over the last three days she has noted swelling in ankles and legs. Swelling in left leg goes to just below the knee. She is unable to get sneakers on due to swelling. Edema is non pitting. She denies increased shortness of breath. She denies abdominal bloating. She denies pain in legs. Denies redness/warmth. She is moving bowels and urinating as usual. Denies headaches, denies dizziness, lightheadedness. Denies nausea/vomiting. Has been checking blood pressures daily on [facility] cuff and readings have been improved since increased in hydralazine. She is now using a pill farm planner and is not missing doses ofmedication. Did you receive an alert for an annual wellness visit? No Is this call for a hospital, usp or rehab facility discharge to home? No Medication Reconciliation: Medication Reconciliation completed: no Review of Current goals: Discussed the following patient-centered CM goals with the patient during this discussion: -*Personal Patient Goal: improvement in leg edema -Status: At Risk new onset edema in legs. Left > right. Acute appointment tomorrow to assess. -HYPERTENSION: Achieve successful management/treatment of HTN -Status: On Track using [facility] cuff daily. Taking hydralazine 25 mg two tabs BID, lisinopril 40 mg daily. -GI: Patient will have GI issues addressed -Status: On Track nausea and vomiting have been well controlled with medications. Moving bowels as usual. COPD Patient: YES Breathing: Breathing at Baseline CHF Patient: NO CM Plan: Scheduled for acute visit tomorrow due to new edema in legs. Reviewed 3 Red Flags with patient. Advised to call CM with any of the following: Red Flag 1: worsening edema in legs , Red Flag 2: increased shortness of breath or Red Flag 3: nausea/vomiting and Patient will contact their provider regarding: red flags. Remote Patient Monitoring: Device Currently in place: BP cuff. Reviewed readings. Interventions, if needed: n/a Plan for Future Contacts: Plan to follow up within 1 week to check progress on the following goals/needs hypertension/edema. Planned contacts from the following parties will occur this week: PCP office visit as additional contacts per workflow. Advancement/Closure Plan: Keep patient at current Tier with reassessment per workflow. Patient provided CM contact information and encouraged to call with any changes in condition. SNP Member? No PCP Notified of enrollment in CM/HM program: Yes Is Provider in agreement with POC? Yes Isabel Christensen RN Outpatient Case Management documented in this encounter Plan of Treatment Upcoming Encounters Date Type Specialty Care Team Description 02/23/2023 Office Visit Family Medicine Sara Palomo PA-C [address] [facility] [place] [address] 03/02/2023 Nurse Only Ancillary [place], Nurse g [address] [place] [address] 03/05/2023 Telemedicine Family Medicine Eliza Mcfarland MD [address] [place] [address] [address] 03/21/2023 Office Visit Gastroenterology Destiney Adams CRNP [address] [place] [address] 04/19/2023 Imaging Radiology Scheduled Procedures Name Priority Associated Diagnoses Date/Ti me ESOPHAGOGASTRODUODENOSCOPY ( EGD), FLEXIBLE, TRANSORAL, DIAGNOSTIC Epigastric pain Health Maintenance Due Date Last Done Comments DISCUSS TOBACCO CESSATION (REFER TO SMARTSET #5133) 1970 Hepatitis B (1 of 3 - 3-dose series) 1970 HIV Screening 1985 Albumin/Creatinine Ratio 01/29/1988 Alpha-1 Antitrypsin 01/29/1988 Pap Smear 01/29/2000 Mammogram 2010 Cologuard 2015 Colonoscopy 2015 Colorectal Cancer Screening 2015 Fecal Occult Blood Test 2015 Sigmoidoscopy 2015 Depression Screening, Annual for Pts 12 and Over 04/30/2015 04/30/2014 *COPD SEVERITY VERIFIED BY PFT 12/26/2015 LUNG CANCER SCREENING - USE SMARTSET [id number] 01/29/2020 Influenza Vaccine (FLU shot) (#1) 2023 [...] the patient have Health Care Power of Pick Out Hand? No Code Status History Code Status Date [...] Advance Directives occurred with: Patient Care Teams Emt Driver Relationship Specialty Start Date End Date Eliza Mcfarland MD [address] [place] [address] PCP - General Family Medicine 12/09/21 documented as of this encounter
--- OUTSIDE RECORDS SUMMARY | 2023-07-14 03:43 | External Medical Summary | Summary of Care ---
Author Name Unknown Organization [facility] Address [address] [place] [address] Phone [phone] Care Team Providers Care Catheter Finisher And Inspector Name Role Phone Eliza Mcfarland MD Primary Care Prov ider Reason for Visit * Reason Onset Date Comments case management 03/16/2023 Encounter Details Date Type Department Care Team Description 03/16/2023 Manager Copy Telephone [address] [phone] Isabel Christensen, RN [address] [place] [address] case management Allergies Active Allergy Reactions Severity Noted Date Comments Codeine Nausea/vomiting High 03/20/2014 Eggs Or Egg-Derived Products Nausea/vomiting 01/23/2023 Naloxone Nausea/vomiting 04/07/2022 Other reaction(s): rash/hives Tramadol Hives High 03/20/2014 Hydrocodone-Acetaminophen Nausea/vomiting 12/09 Hives and nausea documented as of this encounter (statuses as of 03/16/2023) Medications Medication Sig Dispensed Refills Start Date [...] with nonbilious vomiting,B12 deficiency 1000 mcg IM [id number] 07/11/2022 06/12/2023 A ctive documented as of this encounter (statuses as of 03/16/2023) Active Problems Problem Noted Date History of [...] as of this encounter (statuses as of 03/16/2023) Resolved Problems Problem Noted Date Resolved Date [...] as of this encounter (statuses as of 03/16/2023) Immunizations Name Administration Dates Next Due Covid-19, Mrna, Lnp-s, Pf, B ivalent, 50 Mcg, IM, 12 yrs and above (Moderna) 04/24/2022 Pneumococcal Conjugate Vacci ne, 20-valent ([id number]) 07/04/2022 Seasonal Influenza, Quadriva lent, No Preserve, [...] Telephone Encounter - Isabel Christensen RN - 03/16/2023 10:03 AM EDT One week follow-up call: 1. Follow-up Routine 2. Attempted Phone Call First Attempt 3. Call Outcome Unable to Leave Message 4. Plan To attempt another outreach documented in this encounter Plan of Treatment Upcoming Encounters Date Type Specialty Care Team Description 04/13/2023 Telemedicine Family Medicine Eliza Mcfarland MD [address] [place] [address] 04/19/2023 Imaging Radiology Scheduled Procedures Name Priority Associated Diagnoses Date/Ti me ESOPHAGOGASTRODUODENOSCOPY ( EGD), FLEXIBLE, TRANSORAL, DIAGNOSTIC Epigastric pain Health Maintenance Due Date Last Done Comments DISCUSS TOBACCO CESSATION (REFER TO SMARTSET #[id number]) 1970 Hepatitis B (1 of 3 - [...] 12/26/2015 LUNG CANCER SCREENING - USE SMARTSET [id number] 01/29/2020 Influenza Vaccine (FLU shot) (#1) 2023 [...] the patient have Health Care Power of C[employer] Mason Maintenance? No Code Status History Code Status Date [...] Advance Directives occurred with: Patient Care Teams Catheter Finisher And Inspector Relationship Specialty Start Date End Date Eliza Mcfarland MD [address] [place] [address] PCP - General Family Medicine 12/09/21 documented as of this encounter
--- OUTSIDE RECORDS SUMMARY | 2023-07-14 03:44 | External Medical Summary ---
Author Name Unknown Address Unknown Organization K1G:[facility] - [address] [place] [phone] Laboratory Report Ordering Provider Test Date Status THERESE VARGAS 02/12/2023 19:59:02 Fin al hCG can serve as a screening assay for . However, early may not give a positive hCG test result. In addition, some non- women may have a hCG result slightly higher than the reference limit. Careful interpretation of the hCG with clinical history is required to determine whether the patient may be .
Postmenopausal women have higher hCG than premenopausal women. The reference interval for non- premenopausal women is <= 1 mIU/mL, and for postmenopausal women is <= 7 mIU/mL. Observation Date Value Abnormality Reference (Units ) Status Choriogonadotropin.intact +Beta subunit [Units/volume] in Serum or Plasma 02/12/2023 19:59:02 <0.1 <=1.0 (mIU/mL) Final Performing Location [facility] - [address] [place] [phone]
--- OUTSIDE RECORDS SUMMARY | 2023-07-14 03:44 | External Medical Summary | Summary of Care ---
Author Name Unknown Organization [facility] Address [address] [facility] [place] [address] Phone [phone] Care Team Providers Care Supervisor [employer] Name Role Phone Eliza Mcfarland MD Primary Care Prov ider Reason for Visit * Reason Comments Chest Pain Hypertension * Auth/Cert Specialty Diagnoses / Procedures Referred By Contstone t Referred To Contact Referral ID Status Reason Start Date Expiration Date Visits Re quested Visits Authorized [id number] Encounter Details Date Type Department Care Team Description 02/12/2023 Emergency [facility] Emergency Department ([facility]) [address] [place] [address] Dolly Moyer DO [address] [place] [address] Hypertensive urgency (Primary Dx); Chest pain Allergies Active Allergy Reactions Severity Noted Date Comments Codeine Nausea/vomiting High 03/20/2014 Eggs Or Egg-Derived Products Nausea/vomiting 01/23/2023 Naloxone Nausea/vomiting 04/07/2022 Other reaction(s): rash/hives Tramadol Hives High 03/20/2014 Hydrocodone-Acetaminophen Nausea/vomiting 12/09 Hives and nausea documented as of this encounter (statuses as of 02/13/2023) Medications Medication Sig Dispensed Refills Start Date [...] blood pressure 180 Tablet 2 02/12/2023 Active hydrALAZINE HCl 25 MG Oral Tablet (Apresoline) Take 1 Tablet by mouth 2 times a day. For blood pressure 180 Tablet 2 01/23/2023 3 Discontinue d(Refill) Hospital, Clinic, or Other Facility Administered Medication Ordered Dose Route Frequency Start Date End Date Status vitamin b-12 (Cyanocobalamin) inj 1,000 mcgIndications:Acute nausea with nonbilious vomiting,B12 deficiency 1000 mcg IM [id number] 07/11/2022 06/12/2023 A ctive documented as of this encounter (statuses as of 02/13/2023) Active Problems Problem Noted Date History of [...] as of this encounter (statuses as of 02/13/2023) Resolved Problems Problem Noted Date Resolved Date [...] as of this encounter (statuses as of 02/13/2023) Immunizations Name Administration Dates Next Due Covid-19, Mrna, Lnp-s, Pf, B ivalent, 50 Mcg, IM, 12 yrs and above (Moderna) 04/24/2022 Pneumococcal Conjugate Vacci ne, 20-valent ([id number]) 07/04/2022 Seasonal Influenza, Quadriva lent, No Preserve, [...] Sign Reading Time Taken Comments Blood Pressure 138/82 02/12/2023 9:30 PM EDT Pulse 58 02/12/2023 9:30 PM EDT Temperature 36.7 C (98.1 F) 02/12/2023 9:30 PM ED T Respiratory Rate 8 02/12/2023 9:30 PM EDT Oxygen Saturation 95% 02/12/2023 9:30 PM EDT Inhaled Oxygen Concentration - - Weight 82.7 kg (182 lb 5.1 oz) 02/12/2023 7:42 P M EDT Height - - Body Mass Index 29.88 01/09/2023 11:07 AM EDT documented in this [...] No 12/21/2022 documented as of this encounter Discharge Instructions * Discharge Instructions* Dolly Hilario, - 02/12/2023 9:51 PM EDT If increased chest pain, shortness of breath, dizziness/lightheadedness occurs, seek medical attention. Continue to monitor blood pressure as directed. If blood pressure is 140/90 or less, decrease hydralazine to 25 mg twice daily. documented in this encounter ED Notes * Dolly Hilario DO - 02/12/2023 9:40 PM EDTAssociated Order(s): ECG Interpret HISTORY OF PRESENT ILLNESS Charleen Mathis is a 53 year old female who presents to the ED for evaluation of Chest Pain and Hypertension. The patient was seen at 02/12/231934. 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 Tonight developed right sided chest pain radiating down the right arm associated wtih severe headache) Onset quality: Gradual Duration: 3 days Timing: Constant Progression: Unchanged Chronicity: Recurrent (Her DR started her on a new blood pressure medication about 1 month ago because her BP was not controlled with lisinopril. Cannot recall the name of the new medication) Time since last dose of antihypertensive: She took her evening dose BP med 2 hours ago. 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/118 Context: medication change Context: normal sodium, not caffeine, not drug abuse, not herbal remedies, not noncompliance, not OTC medications used and not stress Relieved by: Nothing Worsened by: Nothing Ineffective treatments: ISHMAEL inhibitors Associated symptoms: anxiety, chest pain and headaches Associated symptoms: no abdominal pain, no blurred vision, no confusion, no dizziness, no ear pain,no epistaxis, no fatigue, no fever, no hematuria, no hypokalemia, no loss of consciousness, no nausea, no neck pain, no palpitations, no peripheral edema, no shortness of breath, no syncope, not vomiting and no weakness Risk factors: family hx of HTN and tobacco use Risk factors: no diabetes, no prior aneurysm and no prior stroke Review of Systems Constitutional: Negative for appetite change, fatigue and fever. HENT: Negative for congestion, ear discharge, ear pain, nosebleeds, sinus pressure, sinus pain and sore throat. Eyes: Negative for blurred vision, photophobia, pain, redness and visual disturbance. Respiratory: Negative for shortness of breath. Cardiovascular: Positive for chest pain. Negative for palpitations and syncope. Gastrointestinal: Negative for abdominal pain, nausea and vomiting. Genitourinary: Negative for decreased urine volume, difficulty urinating, dysuria, flank pain, frequency, hematuria and urgency. Musculoskeletal: Negative for back pain and neck pain. Allergic/Immunologic: Positive for environmental allergies and food allergies. Neurological: Positive for headaches. Negative for dizziness, loss of consciousness, syncope, speech difficulty, weakness and light-headedness. Psychiatric/Behavioral: Negative for confusion, self-injury, sleep disturbance and suicidal ideas. The patient is nervous/anxious. The patient's allergies, past history, and medications were reviewed. PHYSICAL EXAM Initial Vitals (see all): BP 201/106 | Pulse 77 | Resp 18 | Temp 98 | O2 99 %, Room Air, None | Weight 82.7 kg | Height 166.4cm | BMI 29.88 kg/m2 Initial Pain Assessment (see all): 7 (severe pain)/10 ([facility] Adult Scale 0-10) Physical Exam Vitals and nursing note reviewed. Constitutional: General: She is not in acute distress. Appearance: She is well-developed and normal weight. She is not ill-appearing. HENT: Head: Normocephalic and atraumatic. Eyes: Extraocular Movements: Extraocular movements intact. Pupils: Pupils are equal, round, and reactive to light. Neck: Vascular: No JVD. Cardiovascular: Rate and Rhythm: Normal rate and regular rhythm. Pulses: Carotid pulses are 2+ on the right side and 2+ on the left side. Radial pulses are 2+ on the right side and 2+ on the left side. Dorsalis pedis pulses are 2+ on the right side and 2+ on the left side. Posterior tibial pulses are 2+ on the right side and 2+ on the left side. Heart sounds: Normal heart sounds. Pulmonary: Breath sounds: Normal breath sounds. Chest: Chest wall: No tenderness. Abdominal: General: Bowel sounds are normal. Palpations: Abdomen is soft. There is no hepatomegaly or splenomegaly. Musculoskeletal: General: Normal range of motion. Cervical back: Normal range of motion and neck supple. Right lower leg: No edema. Left lower leg: No edema. Skin: General: Skin is warm. Capillary Refill: Capillary refill takes less than 2 seconds. Neurological: General: No focal deficit present. Mental Status: She is alert and oriented to person, place, and time. Psychiatric: Mood and Affect: Mood is anxious. Behavior: Behavior normal. PROCEDURES AND TREATMENTS ED Orders | ED Results ECG Interpret Date/Time: 02/12/2023 7:45 PM Performed by: Dolly Hilario DO Authorized by: Dolly Hilario DO Previous ECG: Previous ECG: Unavailable Interpretation: Interpretation: normal Rate: ECG rate: 77 ECG rate assessment: normal Rhythm: Rhythm: sinus rhythm Ectopy: Ectopy: none QRS: QRS axis: Normal QRS intervals: Normal Conduction: Conduction: normal ST segments: ST segments: Normal T waves: T waves: normal Intervals: WV Interval: 162 QRS Interval: 94 QTc Interval: 427 Comments: No acute STEMI or ischemia MEDICAL DECISION MAKING Nursing notes and vital signs were reviewed. ED Course as of 02/13/23 0443 SunFeb 12, [id number] XR Chest 2 Views [CB] 2140 Troponin T, High Sensitivity normal [CB] 2140 Urinalysis, Reflex to Microscopic Exam Normal [CB] 2140 TSH Normal [CB] 2141 Beta-hCG, Quantitative Normal [CB] 2141 CBC with WBC Differential(!) Normal [CB] 2141 Comprehensive Metabolic Panel(!) Unremarkable. [CB] ED Course User Index [CB] Dolly Hilario DO Differential Diagnoses Based on my history, physical exam, and evaluation, the differential includes, but is not limited, to the following diagnoses: acute IN, anxiety, GERD and musculoskeletal pain. Mitral valve prolapse:hypertensive urgency. Medical records reviewed. She was just started on hydralazine 25 mg PO BID. BP in the ER is significantly elevated with SBP >200 and DBP> 110. Hydralazine 10 mg IM administered. Blood pressure improved. Chest pain and headache resolved as blood pressure improved. There is no evidence of ischemia or intracranial hemorrhage on CT secondary to uncontrolled hypertension. Labs reviewed with patient. Renal function is normal. Troponin T is also normal. Blood pressure remains controlled at the time of discharge. Instructed patient to increase hydralazine to 50 mg PO BID. Instructed to continuemonitoring blood pressure at home.If she becomes dizzy/lighheaded or develops persistent CP, SOB, or lower extremity edema, instructed to seek medical attention. Hypertensive urgency: Details: Blood pressure normalized at time of discharge. Amount and/or Complexity of Data Reviewed Labs: ordered. Decision-making details documented in ED Course. Radiology: ordered. Decision-making details documented in ED Course. ECG/medicine tests: ordered and independent interpretation performed. Risk Prescription drug management. Clinical Impressions Hypertensive urgency Disposition Discharged. The patient's condition at disposition was: stable. Discharge Medications Disp Refills Start End hydrALAZINE HCl 25 MG Oral Tablet (Apresoline) 180 Tablet 2 02/12/2023 Sig - Route: Take 2 Tablets by mouth 2 times a day. For blood pressure - Oral Class: ePrescribing Renewals Renewal requests to authorizing provider (Dolly Hilario DO) <b>prohibited</b> Dolly Hilario ATTENDING ATTESTATION I have seen and examined this patient on the 02/12/2023 visit. I have discussed the patient's management with the provider listed above and agree with the note, findings, and plan of care. I formulated the treatment plan for the care of this patient. In addition to what is documented above, my MDM and care plan include: Refer to MDM and discharge instructions for further information Dolly George-DO Sulaiman * Marlee Kahn RN - 02/12/2023 7:40 PM EDT Patient sts that she has been having hypertension for the past couple days. She sts that her FMD told her to come to the ED yesterday but she did not. She sts that she developed right sided CP today documented in this encounter Miscellaneous Notes * Pt Handout (on AVS) - Dolly Hilario DO - 02/12/2023 9:50 PM EDT [id number] Discharge Instructions for Malignant Hypertension (Hypertensive Emergency or Urgency) Malignant hypertension is very high blood pressure that causes harm to your organs. It is a medicalemergency. There are 2 types: Hypertensive emergency. This type is when you have dangerously high blood pressure that is harming organs in your body. The top number of a blood pressure reading is usually higher than 180 and/or a bottom number is higher than 120. You will also have symptoms that mean organs in your body are being harmed. This severe high blood pressure can cause damage to your heart, kidneys, brain, eyes, blood vessels, and other organs. See list of symptoms at the end of the page. Hypertensive urgency. This type is when your blood pressure is 180/120 but you aren't having any symptoms that mean your organs are being affected. This should still be addressed. You will need to take steps to lower your blood pressure. You will need to take blood pressure medicine and make changes to your diet and exercise habits. Below are instructions for how to manage your high blood pressure. Taking your blood pressure Learn to take your own blood pressure. Be sure you know how to do it right. Your healthcare provider can give you detailed instructions. You can use an at- home blood pressure machine. Your provider can help you choose a reliable one. You must be sitting and resting for 5 minutes before taking your blood pressure. Keep a record of your blood pressure results. Ask your provider which readings mean you need medical attention. Have your blood pressure checked by your provider regularly. Hypertensive emergency. If you have a blood pressure reading at home that is higher than 180/120and you have any symptoms shown at the end of this page, don't wait to see if it comes back down. Get emergency care right away. Hypertensive urgency. If you have a blood pressure reading at home that is higher than 180/120 wait 5 minutes and take it again. If the second reading shows either number at or above the first reading and you are not having any symptoms listed at the end of the page, contact your provider right way. You may need to change your medicines. Taking medicines Take your blood pressure medicine exactly as your provider directed. Learn the possible side effects of any prescribed medicines. Tell your provider about any medicine you are taking. Some medicines can cause malignant hypertension. Don't take medicines that contain heart stimulants. This includes some qpya-vse-[id number] medicines. Check for warnings about high blood pressure on the label. Check with your provider before taking a decongestant. Some can make high blood pressure worse. Lifestyle changes Limit your activity until your blood pressure is controlled. Cut back on salt. o Limit canned, dried, packaged, and fast foods. o Don?t add salt to your food at the table. o Season foods with herbs instead of salt when you cook. o Request foods at restaurants with no added salt. Keep a healthy weight. Get help to lose any extra pounds. Start an exercise program. Ask your provider how to get started. You can benefit from simple activities like walking, gardening, swimming, or dancing. Don?t drink more than 1 alcoholic drink a day for women and 2 a day for men. Limit drinks that contain caffeine to 2 per day. This includes coffee, cola, and black or green tea. Never take stimulants such as amphetamines or cocaine. These drugs can be deadly for someone with hypertension. If you smoke, get help to quit. Control your stress. Learn stress-management methods. Follow-up care Make follow-up appointments to see your provider regularly. At these visits, your provider will: Check your blood pressure Give you dietary advice Change your medicine as needed Call 911 Call 911 if you have any of these: Chest pain or shortness of breath Seizure (with no history of seizure disorder) Back pain (upper or lower back) Moderate to severe headache Weakness in the muscles of your face, arms, or legs Trouble speaking Extreme drowsiness or confusion Restlessness, anxiety Fainting or dizziness Weakness, tingling, or numbness of your face, arms, or legs Change in vision (including blurred vision) Nausea or vomiting Blood pressure measured at home that is higher than 180/120 Last Reviewed Date: 06/13/202219993636-9185 [employer]. All rights reserved. This information is not intended as a substitute for professional medical care. Always follow your healthcare professional's instructions. documented in this encounter Plan of Treatment Upcoming Encounters Date Type Specialty Care Team Description 03/02/2023 Nurse Only Nurse [facility] [address] [place] [address] 03/05/2023 Telemedicine Family Medicine Eliza Mcfarland MD [address] [place] [address] 03/21/2023 Office Visit Gastroenterology Destiney Adams CRNP [address] [facility] [place] [address] Scheduled Orders Name Type Priority Associated Diagnoses Orde r Schedule EKG EKG STAT Chest pain Perform Now for 1 Occurrences starting 02/12/2023 until 02/12/2023 Scheduled Procedures Name Priority Associated Diagnoses Date/Ti me ESOPHAGOGASTRODUODENOSCOPY ( EGD), FLEXIBLE, TRANSORAL, DIAGNOSTIC Epigastric pain Health Maintenance Due Date Last Done Comments DISCUSS TOBACCO CESSATION (REFER TO SMARTSET #9523) 1970 Hepatitis B (1 of 3 - 3-dose series) 1970 HIV Screening 1985 Albumin/Creatinine Ratio 01/29/1988 Alpha-1 Antitrypsin 01/29/1988 Pap Smear 01/29/2000 Mammogram 2010 Cologuard 2015 Colonoscopy 2015 Colorectal Cancer Screening 2015 Fecal Occult Blood Test 2015 Sigmoidoscopy 2015 Depression Screening, Annual for Pts 12 and Over 04/30/2015 04/30/2014 *COPD SEVERITY VERIFIED BY PFT 12/26/2015 LUNG CANCER SCREENING - USE SMARTSET 35213 01/29/2020 Influenza Vaccine (FLU shot) (#1) 2023 [...] Not on filedocumented as of this encounter Procedures Procedure Name Priority Date/Time Associated Diagnosis Comments XR CHEST 2 VIEWS STAT 02/12/2023 8:[address] HEAD/BRAIN WO CONTRAST STAT 02/12/2023 8:15 PM EDT URINALYSIS, REFLEX TO MICROSCOPIC STAT 02/12/2023 8:13 PM EDT EXTRA LIGHT BLUE TOP Routine 02/12/2023 7:59 PM EDT DIFFERENTIAL, AUTOMATED STAT 02/12/2023 7:59 PM EDT TROPONIN T, HIGH SENSITIVITY STAT 02/12/2023 7:59 PM EDT BETA-HCG, QUANTITATIVE STAT 7:59 PM EDT COMPREHENSIVE METABOLIC PANEL STAT 02/12/2023 7:59 PM EDT CBC WITH WBC DIFFERENTIAL STAT 02/12/2023 7:59 PM EDT CBC STAT 02/12/2023 7:59 PM EDT TSH STAT 02/12/2023 7:59 PM EDT ECG INTERPRET Routine 02/12/2023 7:45 PM EDT documented in this encounter Results * XR CHEST 2 VIEWS (02/12/2023 8:20 PM EDT) Anatomical Region Laterality Modality Chest Computed Radiogr aphy 02/12/2023 9:02 PM EDT Impressions 02/12/2023 9:00 PM EDT IMPRESSION No acute cardiopulmonary process. Narrative 02/12/2023 9:00 PM EDT EXAM XR CHEST 2 VIEWS-02/12/2023 8:20 pm HISTORY 53 y/o year old F;chest pain. COMPARISON Chest x-ray 01/09/2023. TECHNIQUE PA and lateral views. FINDINGS LUNGS: No infiltrate. PLEURA: No effusion. No pneumothorax. AIRWAYS: No tracheal narrowing. HEART: Normal size. MEDIASTINUM: Normal size. BONES: Unremarkable. UPPER ABDOMEN: Unremarkable. LINES AND DEVICES: None. Procedure Note Rj Degroot MD - 02/12/2023 EXAM XR CHEST 2 VIEWS-02/12/2023 8:20 pm HISTORY 53 y/o year old F;chest pain. COMPARISON Chest x-ray 01/09/2023. TECHNIQUE PA and lateral views. FINDINGS LUNGS: No infiltrate. PLEURA: No effusion. No pneumothorax. AIRWAYS: No tracheal narrowing. HEART: Normal size. MEDIASTINUM: Normal size. BONES: Unremarkable. UPPER ABDOMEN: Unremarkable. LINES AND DEVICES: None. IMPRESSION IMPRESSION No acute cardiopulmonary process. Dolly Hilario DO RADIOLOG Y (RAD GENERAL) * CT HEAD/BRAIN WO CONTRAST (02/12/2023 8:15 PM EDT) Anatomical Region Laterality Modality Head Computed Tomogra phy 02/12/2023 8:23 PM EDT Impressions 02/12/2023 8:21 PM EDT IMPRESSION 1. No acute intracranial abnormality detected by CT, and no gross change since prior exam Narrative 02/12/2023 8:[address] HEAD/BRAIN WO CONTRAST-02/12/2023 8:15 pm HISTORY Headache; Acute OQUENDO (< 3 months), no complicating features COMPARISON CT head from 12/21/2022 TECHNIQUE Axial images obtained through the head without contrast. Sagittal and coronal reconstructed images are also provided. FINDINGS No acute infarction hemorrhage or mass is detected in the cerebrum or posterior fossa. No abnormal extra-axial fluid is appreciated. The cisterns and sulci are clear. No midline or downward shift is appreciated. The brain volume is within normal limits for age, and the ventricles are of normal size and contour. Midline structures appear normally developed and positioned. The craniocervical junction appears normal. No acute paranasal sinus disease is detected. The middle ear cavities are clear. No acute osseous lesion is detected. The visualized portions of the orbits and facial soft tissues show no acute abnormality. Procedure Note Reid Hutchinson Jr., MD - 02/12/[address] HEAD/BRAIN WO CONTRAST-02/12/2023 8:15 pm HISTORY Headache; Acute OQUENDO (< 3 months), no complicating features COMPARISON CT head from 12/21/2022 TECHNIQUE Axial images obtained through the head without contrast. Sagittal andcoronal reconstructed images are also provided. FINDINGS No acute infarction hemorrhage or mass is detected in the cerebrum orposterior fossa. No abnormal extra-axial fluid is appreciated. The cisterns and sulci are clear. No midline or downward shift is appreciated. The brain volume is within normal limits for age, and the ventricles areof normal size and contour. Midline structures appear normally developed and positioned. The craniocervical junction appears normal. No acute paranasal sinus disease is detected. The middle ear cavities are clear. No acute osseous lesion is detected. The visualized portions of the orbits and facial soft tissues show noacute abnormality. IMPRESSION IMPRESSION 1. No acute intracranial abnormality detected by CT, and no gross changesince prior exam Dolly Hilario RAD CT * URINALYSIS, REFLEX TO MICROSCOPIC (02/12/2023 8:13 PM EDT) Color, Urine Yellow Light Yellow, Yellow, Dark Yellow 02/12/2023 8:54 PM EDT LABORATORY [facility] Clarity, Urine Clear Clear 02/12/2023 8:54 PM EDT LAB[facility]AT[facility] Glucose, Urine Negative Negative mg/dL 02/12/2023 8:54 PM EDT LAB[facility] Bilirubin, Urine Negative Negative 02/12/2023 8:54 PM EDT LAB[facility] Ketone, Urine Negative Negative mg/dL 02/12/2023 8:54 PM EDT LAB[facility] Specific [place], Urine 1.020 1.003 - 1.030 02/12/2023 8:54 PM EDT LAB[facility]ORY [facility] Blood, Urine Negative Negative 02/12/2023 8:54 PM EDT LABORATORY [facility] pH, Urine 6.0 5.0 - 7.5 Units 02/12/2023 8:54 PM EDT LABORATORY [facility] Protein, Urine Negative Negative mg/dL 02/12/2023 8:54 PM EDT LAB[facility]ATORY [facility] Urobilinogen, Urine 0.2 0.2, 1.0 mg/dL 02/12/2023 8:54 PM EDT LAB[facility]ORY [facility] Nitrite, Urine Negative Negative 02/12/2023 8:54 PM EDT LAB[facility]ATORY [facility] Esterase, Urine Negative Negative 8:54 PM EDT LAB[facility]ORY [facility] Comment, Urine 02/12/2023 8:54 PM EDT LAB[facility]ATORY [facility] Comment:Screen negative - Mi croscopic not performed. Urine Urine specimen obtained by clean catch procedure / Unknown Non-blood Collection / Unknown 02/12/2023 8:13 PM EDT 02/12/2023 8:34 PM EDT [employer] DO LAB URIN E ORDERABLES Performing Organization Address City/[facility]/ZIP Co de Phone Number LABORATORY [address] [address] * TSH (02/12/2023 7:59 PM EDT) Pathologist [facility] TSH 3.33 0.27 - 4.20 uIU/mL 02/12/2023 8:30 PM EDT LABORATORY [facility] Blood Venous blood specimen / Unknown Venipuncture / Unknown 02/12/2023 7:59 PM EDT 02/12/2023 8:02 PM EDT [employer] DO LAB BLOO D ORDERABLES Performing Organization Address [facility]/ZIP Co de Phone Number LABORATORY [address] [address] * (ABNORMAL) DIFFERENTIAL, AUTOMATED (02/12/2023 7:59 PM EDT) WBC 8.87 4.00 - 10.80 K/uL 02/12/2023 8:05 PM EDT LABORATORY [facility] Neutrophils % 60.0 40.0 - 75.0 % 02/12/2023 8:05 PM EDT LAB[facility]ATORY [facility] Lymphocytes % 27.6 18.0 - 42.0 % 02/12/2023 8:05 PM EDT LAB[facility]ATORY [facility] Monocytes % 5.4 1.0 - 11.0 % 02/12/2023 8:05 PM EDT LAB[facility]ATORY [facility] Eosinophils % 6.4(H) 0.0 - 6.0 % 02/12/2023 8:05 PM EDT LAB[facility]ATORY [facility] Basophils % 0.6 0.0 - 2.0 % 02/12/2023 8:05 PM EDT LAB[facility]ATORY [facility] Absolute Neutrophils 5.32 1.80 - 7.70 K/uL 02/12/2023 8:05 PM EDT LABORATORY [facility] Absolute Lymphocytes 2.45 1.00 - 4.80 K/ul 02/12/2023 8:05 PM EDT LABORATORY [facility] Absolute Monocytes 0.48 0.00 - 1.10 K/uL 02/12/2023 8:05 PM EDT LAB[facility]ATORY [facility] Absolute Eosinophils 0.57 0.00 - 0.70 K/uL 02/12/2023 8:05 PM EDT [facility] [facility] Absolute Basophils 0.05 0.00 - 0.20 K/uL 02/12/2023 8:05 PM EDT LAB[facility]ATORY [facility] Blood Venous blood specimen / Unknown Venipuncture / Unknown 02/12/2023 7:59 PM EDT 02/12/2023 8:02 PM EDT Dolly Hilario DO LAB BLOO D ORDERABLES LABORATORY [place] [id number] [place] [address] * CBC (02/12/2023 7:59 PM EDT) [facility] WBC 8.87 4.00 - 10.80 K/uL 02/12/2023 8:05 PM EDT LAB[facility]ATORY [facility] RBC 4.94 3.85 - 5.15 M/uL 02/12/2023 8:05 PM EDT LAB[facility] HGB 15.0 12.0 - 15.3 g/dL 02/12/2023 8:05 PM EDT LAB[facility]ATORY [facility] HCT 43.7 36.0 - 45.2 % 02/12/2023 8:05 PM EDT LAB[facility] MCV 88.5 81.5 - 97.5 fL 02/12/2023 8:05 PM EDT LAB[facility] MCH 30.4 27.0 - 34.0 pg 02/12/2023 8:05 PM EDT LAB[facility] MCHC 34.3 32.0 - 36.0 g/dL 02/12/2023 8:05 PM EDT LAB[facility] RDW 14.8 11.5 - 15.5 % 02/12/2023 8:05 PM EDT LAB[facility] PLT 237 140 - 400 K/uL 02/12/2023 8:05 PM EDT LAB[facility] MPV 10.5 6.6 - 11.1 fL 02/12/2023 8:05 PM EDT [facility] Blood Venous blood specimen / Unknown Venipuncture / Unknown 02/12/2023 7:59 PM EDT 02/12/2023 8:02 PM EDT Dolly Hilario DO LAB BLOO D ORDERABLES Performing Organization Address City/State/[facility] Co de Phone Number LABORATORY [address] [phone] * BETA-HCG, QUANTITATIVE (02/12/2023 7:59 PM EDT) Beta-HCG, Quantitative <0.1 <=1.0 mIU/mL 02/12/2023 8:30 PM EDT LAB[facility]ORY [facility] Blood Venous blood specimen / Unknown Venipuncture / Unknown 02/12/2023 7:59 PM EDT 02/12/2023 8:02 PM EDT Narrative LAB[facility]ATORY [facility] - 02/12/2023 8:30 PM EDT hCG can serve as a screening assay [...] for postmenopausal women is <= 7 mIU/mL. Dolly SimplyTapp DO LAB BLOO D ORDERABLES Performing Organization Address [facility]/ZIP Co de Phone Number LABORATORY [address] [phone] * TROPONIN T, HIGH SENSITIVITY (02/12/2023 7:59 PM EDT) [facility] Troponin T, High Sensitivity 13 <=14 ng/L 02/12/2023 8:30 PM EDT LAB[facility]ATORY [facility] Blood Venous blood specimen / Unknown Venipuncture / Unknown 02/12/2023 7:59 PM EDT 02/12/2023 8:02 PM EDT Dolly3C Plus DO LAB BLOO D ORDERABLES Performing Organization Address [facility] Co de Phone Number LABORATORY [address] [phone] * (ABNORMAL) COMPREHENSIVE METABOLIC PANEL (02/12/2023 7:59 PM EDT) [facility] BUN 13 6 - 20 mg/dL 02/12/2023 8:26 PM EDT LAB[facility]ATORY [facility] Creatinine 0.7 0.5 - 1.0 mg/dL 02/12/2023 8:26 PM EDT LAB[facility] Estimated Glomerular Filtration Rate >90 >=60 mL/min 02/12/2023 8:26 PM EDT LAB[facility] Comment:eGFR is calculated b ased on the CKD-EPI 2020 equation Sodium 134(L) 135 - 146 mmol/L 02/12/2023 8:26 PM EDT [facility] Potassium 4.0 3.5 - 5.1 mmol/L 02/12/2023 8:26 PM EDT LAB[facility] Chloride 100 98 - 107 mmol/L 02/12/2023 8:26 PM EDT LAB[facility] CO2 22 22 - 32 mmol/L 02/12/2023 8:26 PM EDT LAB[facility] Anion Gap 12 7 - 15 mmol/L 02/12/2023 8:26 PM EDT LAB[facility] Glucose 96 70 - 120 mg/dL 02/12/2023 8:26 PM EDT LAB[facility] Albumin 4.6 3.8 - 5.0 g/dL 02/12/2023 8:26 PM EDT LAB[facility] AST 17 10 - 35 U/L 02/12/2023 8:26 PM EDT LAB[facility] Comment:Result may be falsel y elevated due to hemolysis. Alkaline Phosphatase 49 35 - 130 U/L 02/12/2023 8:26 PM EDT LAB[facility] Bilirubin, Total 0.3 <=1.2 mg/dL 02/12/2023 8:26 PM EDT [facility] Calcium 9.9 8.4 - 10.2 mg/dL 02/12/2023 8:26 PM EDT LAB[facility] Protein 7.6 6.0 - 8.3 g/dL 02/12/2023 8:26 PM EDT [facility] ALT 17 10 - 35 U/L 02/12/2023 8:26 PM EDT [facility] Blood Venous blood specimen / Unknown Venipuncture / Unknown 02/12/2023 7:59 PM EDT 02/12/2023 8:02 PM EDT Dolly Trammell Brosius Bolick DO LAB BLOO D ORDERABLES Performing Organization Address [facility]/ZIP Co de Phone Number LABORATORY [address] [phone] * EXTRA LIGHT BLUE TOP (02/12/2023 7:59 PM EDT) Blood Venous blood specimen / Unknown Venipuncture / Unknown 02/12/2023 7:59 PM EDT 02/12/2023 8:02 PM EDT Dolly Trammell Brosius Bolick DO LAB BLOO D ORDERABLES Performing Organization Address City/[facility]/ZIP Co de Phone Number LABORATORY [address] [phone] * ECG Interpret (02/12/2023 7:45 PM EDT) Narrative Dolly Moyer DO - 02/12/2023 7:45 PM EDT Dolly Hilario DO 02/13/2023 4:44 AM ECG Interpret Date/Time: 02/12/2023 7:45 PM Performed by: Dolly Hilario DO Authorized by: Dolly Hilario DO Previous ECG: Previous ECG: Unavailable Interpretation: Interpretation: normal Rate: ECG rate: 77 ECG rate assessment: normal Rhythm: Rhythm: sinus rhythm Ectopy: Ectopy: none QRS: QRS axis: Normal QRS intervals: Normal Conduction: Conduction: normal ST segments: ST segments: Normal T waves: T waves: normal Intervals: W[place] Interval: 162 QRS Interval: 94 QTc Interval: 427 Comments: No acute STEMI or ischemia Dolly Hilario DO PROCEDUR E REPORT documented in this encounter Visit Diagnoses Diagnosis Hypertensive urgency- Primary Unspecified essential hypertension Chest pain Chest pain, unspecified documented in this encounter Administered Medications Inactive Administered Medications - up to 3 most recent administrations Medication Order MAR Action Action Date Dose Rate Site hydrALAZINE (Apresoline) inj 10 mg 10 mg, Intramuscular, ONCE, On Sun02/12/23 at 2030, For 1 dose Given 02/12/2023 8:01 PM EDT 10 mg Deltoid Left Upper documented in this encounter Active and Recently Administered Medications Times are shown in EDT. Scheduled Medication Order 02/10/2023 02/11/2023 02/12/2023 hydrALAZINE (Apresoline) inj 10 mg (COMPLETED) 10 mg, Intramuscular, ONCE, On Sun02/12/23 at 2030, For 1 dose 2000 (Given - Provid er: Camilla Head RN) documented in this encounter Advance Directives Latest Code Status on File Code Status Date Activated Date Inactivated Comments Full Code 12/21/2022 2:17 PM 12/22/2022 1:45 PM This order reflects the patients wishes and were consensually agreed upon. Question Answer Comments Discussion of Advance Directives occurred with: Patient Does the patient have a Living Will? No Does the patient have Health Care Power of Storage Administrator? No Code Status History Code Status Date [...] Advance Directives occurred with: Patient Care Teams Supervisor Assembly And Packing Relationship Specialty Start Date End Date [place] [address] PCP - General Family Medicine 12/09/21 documented as of this encounter
--- OUTSIDE RECORDS SUMMARY | 2023-07-14 03:44 | External Medical Summary ---
Author Name Unknown Address Unknown Organization K1G:LABORATORY [facility] - [address] [facility] [address] Laboratory Report Ordering Provider Test Date Status THERESE VARGASFREEDOM 02/12/2023 19:59:02 Fin al Observation Date Value Abnormality Reference (Units ) Status BUN 02/12/2023 19:59:02 13 6-20 (mg/dL) Final Creatinine 02/12/2023 19:59:02 0.7 0.5-1.0 (mg/dL) Final Glomerular filtration rate/1.73 sq M.predicted [Volume Rate/Area] in Serum, Plasma or Blood by Creatinine-based formula (CKD-EPI) 02/12/2023 19:59:02 >90 >=60 (mL/min) Final eGFR is calculated based on the CKD-EPI 2020 equation SODIUM 02/12/2023 19:59:02 134 Below low normal 135 -146 (mmol/L) Final Potassium 02/12/2023 19:59:02 4.0 3.5-5.1 (m mol/L) Final Cl 02/12/2023 19:59:02 100 98-107 (mm ol/L) Final CO2 02/12/2023 19:59:02 22 22-32 (mmo l/L) Final Anion gap 02/12/2023 19:59:02 12 7-15 (mmol /L) Final Glucose 02/12/2023 19:59:02 96 70-120 (mg /dL) Final Albumin 02/12/2023 19:59:02 4.6 3.8-5.0 (g /dL) Final AST (Aspartate aminotransferase) 02/12/2023 19:59:02 17 10-35 (U/L) Fin al Result may be falsely elevat ed due to hemolysis. Alk Phos 02/12/2023 19:59:02 49 35-130 (U/ L) Final Bilirubin, Total 02/12/2023 19:59:02 0.3 <=1 .2 (mg/dL) Final Calcium 02/12/2023 19:59:02 9.9 8.4-10.2 ( mg/dL) Final Protein 02/12/2023 19:59:02 7.6 6.0-8.3 (g /dL) Final ALT (Alanine aminotransferase) 02/12/2023 19:59:02 17 10-35 (U/L) Final Performing Location LABORATORY [facility] - [address] [place] [phone]
--- OUTSIDE RECORDS SUMMARY | 2023-07-14 03:44 | External Medical Summary | Summary of Care ---
Author Name Unknown Organization [facility] Address [address] [place] [address] Phone [phone] Care Team Providers Care Glazier Stained Glass Name Role Phone Eliza Mcfarland MD Primary Care Prov ider Reason for Referral * Precert (Within 10 days (routine)) - Pending Review Specialty Diagnoses / Procedures Referred By Contac t Referred To Contact Radiology Diagnoses Nausea, vomiting and diarrhea Gastroesophageal reflux disease, unspecified whether esophagitis present Cyclic vomiting syndrome Procedures NM GASTRIC EMPTYING STUDY LIQUID Eliza Mcfarland MD [address] [place] [id number] Referral ID Status Reason Start Date Expiration Date V isits Requested Visits Authorized [id number] Pending Review 01/24/2023 999 999 Reason for Visit * Reason Onset Date Comments Order Request 01/23/2023 Encounter Details Date Type Department Care Team Description 01/23/2023 Telephone Family [address] [phone] Eliza Mcfarland MD [address] [place] [phone] Order Request Allergies Active Allergy Reactions Severity Noted Date Comments Codeine Nausea/vomiting High 03/20/2014 Eggs Or Egg-Derived Products Nausea/vomiting 01/23/2023 Naloxone Nausea/vomiting 04/07/2022 Other reaction(s): rash/hives Tramadol Hives High 03/20/2014 Hydrocodone-Acetaminophen Nausea/vomiting 04/29 /2022 Hives and nausea documented as of this encounter (statuses as of 01/24/2023) Medications Medication Sig Dispensed Refills Start Date [...] 60 Blister Dosing Unit 11 01/23/2023 Active hydrALAZINE HCl 25 MG Oral Tablet (Apresoline) Take 1 Tablet by mouth 2 times a day. For blood pressure 180 Tablet 2 01/23/2023 Active Lisinopril 40 MG Oral Tablet Take 1 Tablet by mouth in the morning. 90 Tablet 2 01/23/2023 Active oxyCODONE-Acetami nophen 10-325 MG Oral Tablet (Percocet)Indicat ions:Chronic pain syndrome Take 1 Tablet by mouth every 8 hours as needed for Pain, Moderate or Pain, Severe. 90 Tablet 0 01/23/2023 Active Pantoprazole Sodium 40 MG Oral Tablet Delayed Release (Protonix) Take 1 Tablet by mouth in the morning and 1 Tablet before bedtime. 90 Tablet 3 01/23/2023 Active Promethazine HCl 25 MG Oral Tablet (Phenergan)Indica tions:Cyclic vomiting syndrome Take 1 Tablet by mouth every 6 hours as needed for Nausea. or vomiting 60 Tablet 6 01/23/2023 Active Ventolin HFA 108 (90 Base) [...] before bedtime. 60 Tablet 3 01/23/2023 Active Hospital, Clinic, or Other Facility Administered Medication Ordered Dose Route Frequency Start Date End Date Status vitamin b-12 (Cyanocobalamin) inj 1,000 mcgIndications:Acute nausea with nonbilious vomiting,B12 deficiency 1000 mcg IM [id number] 07/11/2022 06/12/2023 A ctive documented as of this encounter (statuses as of 01/24/2023) Active Problems Problem Noted Date History of appendectomy 12/26/2022 Prediabetes 12/26/2022 COPD, severe 12/26/2022 Intractable nausea and [...] as of this encounter (statuses as of 01/24/2023) Resolved Problems Problem Noted Date Resolved Date Acute renal failure 12/21/2022 12/26/2022 Sepsis 09/14/2022 [...] as of this encounter (statuses as of 01/24/2023) Immunizations Name Administration Dates Next Due Covid-19, Mrna, Lnp-s, Pf, B ivalent, 50 Mcg, IM, 12 yrs and above (Moderna) 04/24/2022 Pneumococcal Conjugate Vacci ne, 20-valent ([id number]) 07/04/2022 Seasonal Influenza, Quadriva lent, No Preserve, [...] encounter Miscellaneous Notes * Telephone Encounter - Hannah Blevins - 01/24/2023 8:08 AM EDT Patient will be contacted to scheduled test. * Telephone Encounter - Eliza Mcfarland MD - 01/23/2023 1:49 PM EDT Was ordered on 12/26/[address] new order. Please help patient schedule this SAMMIE. * Telephone Encounter - ADARSH Vyas - 01/23/2023 1:16 PM EDT Please see below and advise. Need an order placed. * Telephone Encounter - JR Skinner - 01/23/2023 12:00 PM EDT Check out note said to schedule for a gastric emptying study but don't see an order. documented in this encounter Plan of Treatment Upcoming Encounters Date Type Specialty Care Team Description 01/31/2023 Imaging Radiology 02/06/2023 Office Visit Family Medicine Eliza Mcfarland MD [address] [place] [address] [place] [phone] 03/21/2023 Office Visit Gastroenterology Destiney Adams CRNP [address] [place] [address] Scheduled Orders Name Type Priority Associated Diagnoses Orde r Schedule NM GASTRIC EMPTYING STUDY LIQUID Medical Imaging Routine Nausea, vomiting and diarrhea Gastroesophageal reflux disease, unspecified whether esophagitis present Cyclic vomiting syndrome Expected: 01/24/2023, Expires: 02/23/2024 Scheduled Procedures Name Priority Associated Diagnoses Date/Ti [...] 12/26/2015 LUNG CANCER SCREENING - USE SMARTSET 55159 01/29/2020 HbA1c 06/08/2023 06/08/2022 GFR 01/10/2024 01/09/2023, 12/11, 12/22/2022, Additional history exists O2 ASSESSMENT COMPLETED IN PAST YEAR FOR COPD 01/24/2024 01/23/2023 Lipid Panel 09/15/2027 09/15/2022, 05/14, 03/20/2014 DTaP,Tdap,and Td Vaccines (2 - Td or Tdap) 09/21/2032 09/21/2022 Influenza Vaccine (FLU shot) Completed , 06/02/2020, 06/14/2018, Additional history exists Zoster Vaccines Completed 04/11/2022, 01/07/2021 COVID-19 Vaccine [...] as of this encounter Visit Diagnoses Diagnosis Nausea, vomiting and diarrhea- Primary Diarrhea Gastroesophageal reflux disease, unspecified whether esophagitis present Cyclic vomiting syndrome Persistent vomiting documented in [...] the patient have Health Care Power of Information Technology Technician? No Code Status History Code Status [...] Advance Directives occurred with: Patient Care Teams Glazier Stained Glass Relationship Specialty Start Date End Date Eliza Mcfarland MD [address] [place] [address] PCP - General Family Medicine 12/09/21 documented as of this encounter
--- OUTSIDE RECORDS SUMMARY | 2023-07-14 03:44 | External Medical Summary ---
Author Name Unknown Address Unknown Organization K1G:LABORATORY [facility] - [address] [place] [phone] Laboratory Report Ordering Provider Test Date Status THERESE VARGAS 02/12/2023 19:59:02 Fin al Observation Date Value Abnormality Reference (Units ) Status TSH 02/12/2023 19:59:02 3.33 0.27-4.20 (uIU/mL) Final Performing Location LABORATORY [facility] - [address] [place] [phone]
--- OUTSIDE RECORDS SUMMARY | 2023-07-14 03:44 | External Medical Summary | Summary of Care ---
Author Name Unknown Organization [facility] Address [address] [place] [address] Phone [phone] Care Team Providers Care Pigment Supplier Name Role Phone Eliza Mcfarland MD Primary Care Prov ider Reason for Visit * Reason Onset Date Comments case management 02/21/2023 Encounter Details Date Type Department Care Team Description 02/21/2023 Cash Specialist Telephone Care Coordination [address] [place] [address] Kajal Elam LSW [address], [place] [id number] case management Allergies Active Allergy Reactions Severity Noted Date Comments Codeine Nausea/vomiting High 03/20/2014 Eggs Or Egg-Derived Products Nausea/vomiting 01/23/2023 Naloxone Nausea/vomiting 04/07/2022 Other reaction(s): rash/hives Tramadol Hives High 03/20/2014 Hydrocodone-Acetaminophen Nausea/vomiting 12/09 Hives and nausea documented as of this encounter (statuses as of 02/21/2023) Medications Medication Sig Dispensed Refills Start Date [...] with nonbilious vomiting,B12 deficiency 1000 mcg IM [id number] 07/11/2022 06/12/2023 A ctive documented as of this encounter (statuses as of 02/21/2023) Active Problems Problem Noted Date History of [...] as of this encounter (statuses as of 02/21/2023) Resolved Problems Problem Noted Date Resolved Date [...] as of this encounter (statuses as of 02/21/2023) Immunizations Name Administration Dates Next Due Covid-19, Mrna, Lnp-s, Pf, B ivalent, 50 Mcg, IM, 12 yrs and above (Moderna) 04/24/2022 Pneumococcal Conjugate Vacci ne, 20-valent ([id number]) 07/04/2022 Seasonal Influenza, Quadriva lent, No Preserve, [...] * Telephone Encounter - PARTH Randolph - 02/21/2023 3:19 PM EDT Images from the original note were not included. [facility] Goal Review UT#1 1. Follow-up Routine 2. Attempted Phone Call First Attempt 3. Call Outcome Left Voicemail/Message 4. Plan To attempt another outreach [facility] Cash Specialist (Pronouns: she, her, hers) Care Coordination Integration home planning consultant salesperson documented in this encounter Plan of Treatment Upcoming Encounters Date Type Specialty Care Team Description 03/02/2023 Nurse Only Nurse [address] [address] 03/05/2023 Telemedicine Family Medicine Eliza Mcfarland MD [address] [place] [address] 03/21/2023 Office Visit Gastroenterology Destiney Adams CRNP [address] [place] [address] 04/19/2023 Imaging Radiology Scheduled Procedures Name Priority Associated Diagnoses Date/Ti me ESOPHAGOGASTRODUODENOSCOPY ( EGD), FLEXIBLE, TRANSORAL, DIAGNOSTIC Epigastric pain Health Maintenance Due Date Last Done Comments DISCUSS TOBACCO CESSATION (REFER TO SMARTSET #8561) 1970 Hepatitis B (1 of 3 - 3-dose series) 1970 HIV Screening 1985 Albumin/Creatinine Ratio 01/29/1988 Alpha-1 Antitrypsin 01/29/1988 Pap Smear 01/29/2000 Mammogram 2010 Cologuard 2015 Colonoscopy 2015 Colorectal Cancer Screening 2015 Fecal Occult Blood Test 2015 Sigmoidoscopy 2015 Depression Screening, Annual for Pts 12 and Over 04/30/2015 04/30/2014 *COPD SEVERITY VERIFIED BY PFT 12/26/2015 LUNG CANCER SCREENING - USE SMARTSET 94432 01/29/2020 Influenza Vaccine (FLU shot) (#1) 2023 [...] the patient have Health Care Power of Accounting Manager Cpa? No Code Status History Code Status Date [...] Advance Directives occurred with: Patient Care Teams Pigment Supplier Relationship Specialty Start Date End Date Eliza Mcfarland MD [address] [place] [phone] PCP - General Family Medicine 12/09/21 documented as of this encounter
--- OUTSIDE RECORDS SUMMARY | 2023-07-14 03:44 | External Medical Summary ---
Author Name Unknown Address Unknown Organization K1G:LABORATORY [facility] - [address] [place] [phone] Laboratory Report Ordering Provider Test Date Status THERESE VARGAS 02/12/2023 20:13:15 Fin al Observation Date Value Abnormality Reference (Units ) Status Color of Urine by Auto 02/12/2023 20:13:15 Yellow Light Yellow, Yellow, Dark Yellow Final Clarity, Urine 02/12/2023 20:13:15 Clear Clear Final Glucose [Mass/volume] in Urine by Automated test strip 02/12/2023 20:13:15 Negative Negative (mg/dL) Final Bilirubin.total [Presence] in Urine by Automated test strip 02/12/2023 20:13:15 Negative Negative Final Ketones [Mass/volume] in Urine by Automated test strip 02/12/2023 20:13:15 Negative Negative (mg/dL) Final Specific gravity, Urine 02/12/2023 20:13:15 1.020 1.003-1.030 Final Hemoglobin [Presence] in Urine by Automated test strip 02/12/2023 20:13:15 Negative Negative Final pH, Urine 02/12/2023 20:13:15 6.0 5.0-7.5 (Units) Final Protein [Mass/volume] in Urine by Automated test strip 02/12/2023 20:13:15 Negative Negative (mg/dL) Final Urobilinogen [Mass/volume] in Urine by Automated test strip 02/12/2023 20:13:15 0.2 0.2, 1.0 (mg/dL) Final Nitrite [Presence] in Urine by Automated test strip 02/12/2023 20:13:15 Negative Negative Final Leukocyte esterase [Presence] in Urine by Automated test strip 02/12/2023 20:13:15 Negative Negative Final Annotation Comment 02/12/2023 20:13:15 Final Screen negative - Microscopi c not performed. Performing Location LABORATORY [facility] - [address] [facility] [phone]
--- OUTSIDE RECORDS SUMMARY | 2023-07-14 03:44 | External Medical Summary | Summary of Care ---
Author Name Unknown Organization [facility] Address [address] [place] [address] Phone [phone] Care Team Providers Care Control Technician Name Role Phone Eliza Mcfarland MD Primary Care Prov ider Reason for Visit * Reason Comments eRx-Medication Refill Encounter Details Date Type Department Care Team Description 01/13/2023 Refill Family [address] [address] Eliza Mcfarland MD [address] [place] [phone] Allergies Active Allergy Reactions Severity Noted Date Comments Codeine Nausea/vomiting High 03/20/2014 Naloxone Nausea/vomiting 04/07/2022 Other reaction(s): rash/hives Tramadol Hives High 03/20/2014 Hydrocodone-Acetaminophen Nausea/vomiting 12/09 Hives and nausea documented as of this encounter (statuses as of 01/17/2023) Medications Medication Sig Dispensed Refills Start Date End Date Status Polyethylene Glycol 3350 17 GM/SCOOP Oral Powder (MiraLax) Take by mouth 17 g once a week . Dissolve one heaping tablespoon in 8 ounces of water or juice. 225 g 3 06/08/2022 Active Pantoprazole Sodium 40 MG Oral Tablet Delayed Release (Protonix) Take 1 Tablet (40 mg) by mouth in the morning and 1 Tablet (40 mg) before bedtime. 90 Tablet 3 07/25/2022 Active QUEtiapine Fumarate 50 MG Oral Tablet (SEROquel) Take 1 Tablet (50 mg) by mouth at bedtime. 90 Tablet 1 07/25/2022 Active Syringe 25G X 1" 3 ML Use to administer Tigan solution as needed 50 Each 0 09/06/2022 Active Ventolin HFA 108 (90 Base) MCG/ACT Inhalation Aerosol Solution Inhale 2 Puffs by mouth every 4 hours as needed for Shortness of Breath or Wheezing. 18 g 2 09/21/2022 Active Promethazine HCl 25 MG Oral Tablet (Phenergan)Indica tions:Cyclic vomiting syndrome Take 1 Tablet by mouth every 6 hours as needed for Nausea. or vomiting 40 Tablet 0 11/02/2022 Active Famotidine 20 MG Oral Tablet (Pepcid) Take 1 Tablet by mouth in the morning and 1 Tablet before bedtime. 60 Tablet 11 11/13/2022 Active clonazePAM 1 MG Oral Tablet (KlonoPIN) Take 1 Tablet by mouth in the morning and 1 Tablet before bedtime. 60 Tablet 3 11/15/2022 Active Lisinopril 40 MG Oral Tablet Take 1 Tablet by mouth in the morning. 90 Tablet 2 11/15/2022 Active Fluticasone-Umecl idin-Vilant 200-62.5-25 MCG/ACT Aerosol Powder Breath Activated (Trelegy Ellipta) Inhale 1 Puff by mouth daily. 60 Blister Dosing Unit 11 12/26/2022 Active levETIRAcetam 500 MG Oral Tablet (Keppra) Take 1 Tablet by mouth 2 times a day. Food Mood and Vomiting 180 Tablet 1 12/26/2022 Active hydrALAZINE HCl 25 MG Oral Tablet (Apresoline) Take 1 Tablet by mouth 2 times a day. For blood pressure 180 Tablet 2 12/26/2022 Active oxyCODONE-Acetami nophen 10-325 MG Oral Tablet (Percocet)Indicat ions:Chronic pain syndrome Take 1 Tablet by mouth every 8 hours as needed for Pain, Moderate or Pain, Severe. 90 Tablet 0 12/26/2022 Active Sucralfate 1 GM/10ML Oral Suspension (Carafate) Take 10 mL by mouth in the morning and 10 mL at noon and 10 mL in the evening and 10 mL before bedtime. 420 mL 5 12/26/2022 Active Aprepitant 80 MG Oral Capsule (Emend) 1 capsule once time Day 2 and 3 of vomiting 10 Capsule 4 01/02/2023 Active Aprepitant 125 MG Oral Capsule (Emend) TAKE ONE CAPSULE BY MOUTH ONCE FOR 1 DOSE WITH ONSET OF VOMITING 10 Capsule 0 01/17/2023 Active Hospital, Clinic, or Other Facility Administered Medication Ordered Dose Route Frequency Start Date End Date Status vitamin b-12 (Cyanocobalamin) inj 1,000 mcgIndications:Acute nausea with nonbilious vomiting,B12 deficiency 1000 mcg IM [id number] 07/11/2022 06/12/2023 A ctive documented as of this encounter (statuses as of 01/17/2023) Active Problems Problem Noted Date History of [...] as of this encounter (statuses as of 01/17/2023) Resolved Problems Problem Noted Date Resolved Date [...] as of this encounter (statuses as of 01/17/2023) Immunizations Name Administration Dates Next Due Covid-19, Mrna, Lnp-s, Pf, B ivalent, 50 Mcg, IM, 12 yrs and above (Moderna) 04/24/2022 Pneumococcal Conjugate Vacci ne, 20-valent ([id number]) 07/04/2022 Seasonal Influenza, Quadriva lent, No Preserve, [...] encounter Miscellaneous Notes * Telephone Encounter - Emeka Marvin MD - 01/17/2023 10:53 AM EDTSigned Prescriptions: Disp Refills Aprepitant 125 MG Oral Capsule (Emend) 10 Cap*0 Sig: TAKE ONE CAPSULE BY MOUTH ONCE FOR 1 DOSE WITH ONSET OF VOMITING Authorizing Provider: EMEKA MARVIN * Telephone Encounter - Joshua Patrick RP - 01/15/2023 1:17 PM EDTPending Prescriptions: Disp Refills Aprepitant 125 MG Oral Capsule [Pharmacy M*10 Cap*0 Sig: TAKE ONE CAPSULE BY MOUTH ONCE FOR 1 DOSE WITH ONSET OF VOMITING * Telephone Encounter - Joshua Patrick RP - 01/15/2023 1:17 PM EDT Refill pharmacists currently not authorized to approve refills for the pended medication(s) per refill protocol. Please approve if appropriate. Thanks, Joshua Patrick, R.Ph. Clinical Pharmacist [facility] [phone] [id number] 01/15/2023,1:17 PM Pending Prescriptions: Disp Refills Aprepitant 125 MG Oral Capsule [Pharmacy M*10 Cap*0 Sig: TAKE ONE CAPSULE BY MOUTH ONCE FOR 1 DOSE WITH ONSET OF VOMITING Last Visit: 12/26/2022 (in office), 09/06/2022 (telemedicine) Next Visit: 01/23/2023 If no future appointments scheduled, and last appointment is greater than a year ago, please schedule patient for a follow-up appointment Last date the medication was ordered: 12-26-22 Pharmacy: [email or web address] [address] Is this request for a controlled substance?No Urine Drug Screen: Results for orders placed or performed in [...] screening results are reflexed to confirmatory testing. Patient Phone Numbers mobile [phone] Labs: Lab Results Component Value Date/Time CREAT 0.7 01/09/2023 11:39 AM CREAT 1.0 05/23/2017 04:30 AM POTASSIUM 3.8 01/09/2023 11:39 AM POTASSIUM 3.6 05/23/2017 04:30 AM TSH 3.05 06/08/2022 10:57 AM TSH 4.46 (H) 05/23/2017 04:30 AM LDLCALC 108 09/15/2022 05:55 AM LDLCALC 129 03/20/2014 10:15 AM ALT 21 12/26/2022 02:42 PM ALT 11 05/23/2017 04:30 AM HGBA1C 6.2 (H) 06/08/2022 10:57 AM documented in this encounter Plan of Treatment Upcoming Encounters Date Type Specialty Care Team Description 01/23/2023 Office Visit Family Medicine Eliza Mcfarland MD [address] [place] [address] 01/31/2023 Imaging Radiology 03/21/2023 Office Visit Gastroenterology Destiney Adams CRNP [address] [place] [address] 03/22/2023 Office Visit Family Medicine Eliza Mcfarland MD [address] [facility] [place] [address] Scheduled Procedures Name Priority Associated Diagnoses Date/Ti [...] 12/26/2015 LUNG CANCER SCREENING - USE SMARTSET 64700 01/29/2020 HbA1c 06/08/2023 06/08/2022 GFR 01/10/2024 01/09/2023, 12/11, 12/22/2022, Additional history exists O2 ASSESSMENT COMPLETED IN PAST YEAR FOR COPD 01/10/2024 01/09/2023 Lipid Panel 09/15/2027 09/15/2022, 05/14, 03/20/2014 DTaP,Tdap,and [...] the patient have Health Care Power of City Dispatch Supervisor? No Code Status History Code Status [...] Advance Directives occurred with: Patient Care Teams Control Technician Relationship Specialty Start Date End Date Eliza Mcfarland MD [address] [place] [address] PCP - General Family Medicine 12/09/21 documented as of this encounter
--- OUTSIDE RECORDS SUMMARY | 2023-07-14 03:44 | External Medical Summary | Summary of Care ---
Author Name Unknown Organization [facility] Address [address] [place] [address] Phone [phone] Care Team Providers Care Wet Milling Wheel Operator Name Role Phone Eliza Mcfarland MD Primary Care Prov ider Reason for Referral * Precert (Within 10 days (routine)) - Pending Review Specialty Diagnoses / Procedures Referred By Contac t Referred To Contact Radiology Diagnoses Nausea, vomiting and diarrhea Gastroesophageal reflux disease, unspecified whether esophagitis present Cyclic vomiting syndrome Procedures NM GASTRIC EMPTYING STUDY LIQUID Eliza Mcfarland MD [address] [place] [id number] Referral ID Status Reason Start Date Expiration Date V isits Requested Visits Authorized [id number] Pending Review 01/24/2023 999 999 Reason for Visit * Reason Onset Date Comments Order Request 01/23/2023 Encounter Details Date Type Department Care Team Description 01/23/2023 Telephone Family [address] [phone] Eliza Mcfarland MD [address] [place] [phone] Order Request Allergies Active Allergy Reactions Severity Noted Date Comments Codeine Nausea/vomiting High 03/20/2014 Eggs Or Egg-Derived Products Nausea/vomiting 01/23/2023 Naloxone Nausea/vomiting 04/07/2022 Other reaction(s): rash/hives Tramadol Hives High 03/20/2014 Hydrocodone-Acetaminophen Nausea/vomiting 04/29 /2022 Hives and nausea documented as of this encounter (statuses as of 02/06/2023) Medications Medication Sig Dispensed Refills Start Date [...] before bedtime. 60 Tablet 3 01/23/2023 Active oxyCODONE-Acetam inophen 10-325 MG Oral Tablet (Percocet)Indica tions:Chronic pain syndrome Take 1 Tablet by mouth every 8 hours as needed for Pain, Moderate or Pain, Severe. 90 Tablet 0 01/23/2023 3 Discontinue d(Refill) Promethazine HCl 25 MG Oral Tablet (Phenergan)Indic ations:Cyclic vomiting syndrome Take 1 Tablet by mouth every 6 hours as needed for Nausea. or vomiting 60 Tablet 6 01/23/2023 3 Discontinue d(End of Procedure) Hospital, Clinic, or Other Facility Administered Medication Ordered Dose Route Frequency Start Date End Date Status vitamin b-12 (Cyanocobalamin) inj 1,000 mcgIndications:Acute nausea with nonbilious vomiting,B12 deficiency 1000 mcg IM [id number] 07/11/2022 06/12/2023 A ctive documented as of this encounter (statuses as of 02/06/2023) Active Problems Problem Noted Date History of [...] as of this encounter (statuses as of 02/06/2023) Resolved Problems Problem Noted Date Resolved Date [...] as of this encounter (statuses as of 02/06/2023) Immunizations Name Administration Dates Next Due Covid-19, Mrna, Lnp-s, Pf, B ivalent, 50 Mcg, IM, 12 yrs and above (Moderna) 04/24/2022 Pneumococcal Conjugate Vacci ne, 20-valent ([id number]) 07/04/2022 Seasonal Influenza, Quadriva lent, No Preserve, [...] Adams CRNP [address] [place] [address] Scheduled Orders Name Type Priority Associated Diagnoses [...] 12/26/2015 LUNG CANCER SCREENING - USE SMARTSET 53630 01/29/2020 GFR 01/10/2024 01/09/2023, 12/11, 12/22/2022, Additional history exists O2 ASSESSMENT COMPLETED IN PAST YEAR FOR COPD 01/24/2024 01/23/2023 Diabetes Screening 01/09/2026 01/09/2023, 0 12/26/2022, 12/22/2022, Additional history exists Lipid Panel 09/15/2027 09/15/2022, [...] the patient have Health Care Power of Production Intern? No Code Status History Code Status Date [...] Advance Directives occurred with: Patient Care Teams Wet Milling Wheel Operator Relationship Specialty Start Date End Date Eliza Mcfarland MD [address] [place] [address] PCP - General Family Medicine 12/09/21 documented as of this encounter
--- OUTSIDE RECORDS SUMMARY | 2023-07-14 03:44 | External Medical Summary ---
Author Name Unknown Address Unknown Organization K1G:[facility] - [address] [place] [phone] Laboratory Report Ordering Provider Test Date Status THERESE VARGAS 02/12/2023 19:59:02 Fin al Observation Date Value Abnormality Reference (Units ) Status Troponin T 02/12/2023 19:59:02 13 <=14 (ng/ L) Final Performing Location [facility] - [address] [place] [phone]
--- OUTSIDE RECORDS SUMMARY | 2023-07-14 03:44 | External Medical Summary | Summary of Care ---
Author Name Unknown Organization [facility] Address [address] [place] [address] Phone [phone] Care Team Providers Care Graphic Editor Name Role Phone Eliza Mcfarland MD Primary Care Prov ider Reason for Visit * Reason Comments Follow Up Needs clarification with new nausea med Encounter Details Date Type Department Care Team Description 02/06/2023 Office Visit [address] [phone] Eliza Mcfarland MD [address] [place] [phone] Cyclic vomiting syndrome*; Chronic pain syndrome; Uncontrolled hypertension Allergies Active Allergy Reactions Severity Noted Date Comments Codeine Nausea/vomiting High 03/20/2014 Eggs Or Egg-Derived Products Nausea/vomiting 01/23/2023 Naloxone Nausea/vomiting 04/07/2022 Other reaction(s): rash/hives Tramadol Hives High 03/20/2014 Hydrocodone-Acetaminophen Nausea/vomiting 12/09 Hives and nausea documented as of this encounter (statuses as of 02/10/2023) Medications Medication Sig Dispensed Refills Start Date End Date Status Polyethylene Glycol 3350 17 GM/SCOOP Oral Powder (MiraLax) Take by mouth 17 g once a week . Dissolve one heaping tablespoon in 8 ounces of water or juice. 225 g 3 2 Active Syringe 25G X 1" 3 ML Use to administer Tigan solution as needed 50 Each 0 3 Active Aprepitant 125 MG Oral Capsule (Emend) TAKE ONE CAPSULE BY MOUTH ONCE FOR 1 DOSE WITH ONSET OF VOMITING 10 Capsule 0 3 Active QUEtiapine Fumarate 200 MG Oral Tablet (SEROquel) Take 1- 1.5 tablets nightly at bedtime 60 Tablet 5 3 Active Aprepitant 80 MG Oral Capsule (Emend) 1 capsule one time daily on Day 1 of vomiting 10 Capsule 4 3 Active Aprepitant 40 MG Oral Capsule 1 capsule once daily on Day 2 and Day 3 of vomiting 10 Capsule 4 3 Active Fluticasone-Ume clidin-Vilant 200-62.5-25 MCG/ACT Aerosol Powder Breath Activated (Trelegy Ellipta) Inhale 1 Puff by mouth daily. 60 Blister Dosing Unit 11 3 Active hydrALAZINE HCl 25 MG Oral Tablet (Apresoline) Take 1 Tablet by mouth 2 times a day. For blood pressure 180 Tablet 2 3 Active Lisinopril 40 MG Oral Tablet Take 1 Tablet by mouth in the morning. 90 Tablet 2 3 Active Pantoprazole Sodium 40 MG Oral Tablet Delayed Release (Protonix) Take 1 Tablet by mouth in the morning and 1 Tablet before bedtime. 90 Tablet 3 3 Active Ventolin HFA 108 (90 Base) MCG/ACT Inhalation Aerosol Solution Inhale 2 Puffs by mouth every 4 hours as needed for Shortness of Breath or Wheezing. 18 g 2 3 Active Sucralfate 1 GM/10ML Oral Suspension (Carafate) Take 10 mL by mouth in the morning and 10 mL at noon and 10 mL in the evening and 10 mL before bedtime. 420 mL 5 3 Active Famotidine 20 MG Oral Tablet (Pepcid) Take 1 Tablet by mouth in the morning and 1 Tablet before bedtime. 180 Tablet 3 3 Active clonazePAM 1 MG Oral Tablet (KlonoPIN) Take 1 Tablet by mouth in the morning and 1 Tablet before bedtime. 60 Tablet 3 3 Active Prochlorperazin e Maleate 10 MG Oral Tablet (Compazine) Take 1 Tablet by mouth every 6 hours as needed for Nausea. 90 Tablet 2 3 Active Meclizine HCl 25 MG Oral Tablet (Antivert) Take 1-2 Tablets by mouth 2 times a day as needed for Nausea. 60 Tablet 1 3 Active oxyCODONE-Aceta minophen 10-325 MG Oral Tablet (Percocet)Indic ations:Chronic pain syndrome Take 1 Tablet by mouth every 8 hours as needed for Pain, Moderate or Pain, Severe. Do not start before March 01, 2023. 90 Tablet 0 3 Active oxyCODONE-Aceta minophen 10-325 MG Oral Tablet (Percocet)Indic ations:Chronic pain syndrome Take 1 Tablet by mouth every 8 hours as needed for Pain, Moderate or Pain, Severe. Do not start before March 30, 2023. 90 Tablet 0 3 Active oxyCODONE-Aceta minophen 10-325 MG Oral Tablet (Percocet)Indic ations:Chronic pain syndrome Take 1 Tablet by mouth every 8 hours as needed for Pain, Moderate or Pain, Severe. 90 Tablet 0 3 02/07/20 23 Discontinued(Ref ill) Promethazine HCl 25 MG Oral Tablet (Phenergan)Vikki cations:Cyclic vomiting syndrome Take 1 Tablet by mouth every 6 hours as needed for Nausea. or vomiting 60 Tablet 6 3 02/07/20 23 Discontinued(End of Procedure) oxyCODONE-Aceta minophen 10-325 MG Oral Tablet (Percocet)Indic ations:Chronic pain syndrome Take 1 Tablet by mouth every 8 hours as needed for Pain, Moderate or Pain, Severe. Do not start before February 20, 2023. 90 Tablet 0 3 02/07/20 23 Discontinued oxyCODONE-Aceta minophen 10-325 MG Oral Tablet (Percocet)Indic ations:Chronic pain syndrome Take 1 Tablet by mouth every 8 hours as needed for Pain, Moderate or Pain, Severe. Do not start before March 01, 2023. 90 Tablet 0 3 02/07/20 23 Discontinued Hospital, Clinic, or Other Facility Administered Medication Ordered Dose Route Frequency Start Date End Date Status vitamin b-12 (Cyanocobalamin) inj 1,000 mcgIndications:Acute nausea with nonbilious vomiting,B12 deficiency 1000 mcg IM [id number] 07/11/2022 06/12/2023 A ctive documented as of this encounter (statuses as of 02/10/2023) Active Problems Problem Noted Date History of [...] as of this encounter (statuses as of 02/10/2023) Resolved Problems Problem Noted Date Resolved Date [...] as of this encounter (statuses as of 02/10/2023) Immunizations Name Administration Dates Next Due Covid-19, Mrna, Lnp-s, Pf, B ivalent, 50 Mcg, IM, 12 yrs and above (Moderna) 04/24/2022 Pneumococcal Conjugate Vacci ne, 20-valent ([id number]) 07/04/2022 Seasonal Influenza, Quadriva lent, No Preserve, [...] Sign Reading Time Taken Comments Blood Pressure 194/118 02/06/2023 12:57 PM EDT Pulse 62 02/06/2023 12:57 PM EDT Temperature 36.7 C (98.1 F) 02/06/2023 12:57 PM E DT Respiratory Rate 20 02/06/2023 12:57 PM EDT Oxygen Saturation 99% 02/06/2023 12:57 PM EDT Inhaled Oxygen Concentration - - Weight 83.5 kg (184 lb 1.6 oz) 02/06/2023 12:57 PM EDT Height - - Body Mass Index 30.17 01/09/2023 11:07 AM EDT documented in this [...] No 12/21/2022 documented as of this encounter Patient Instructions * Patient Instructions* Eliza Mcfarland MD - 02/06/2023 1:30 PM EDT For acute visit: Rip Sanchez or Sara Palomo documented in this encounter Progress Notes * Eliza Mcfarland MD - 02/06/2023 1:20 PM EDT Images from the original note were not included. Portions of this record may have been dictated using voice recognition software. Variations in spelling and in vocabulary are possible and unintentional. Some errors may not be recognized or corrected at time of dictation. History of Present Illness Charleen Mathis is a 53 year old female that presents for Follow Up (Needs clarification with new nausea med) Cyclic vomiting syndrome. Several treatment failures. Doing better with Embend. Has not had episodes of emesis lately but still having daily nausea. BP elevated today, recent increase of lisinopril And addition hydralazine. Did not take medication today Physical Exam Vitals: 02/06/23 1257 Temp: 36.7 C (98.1 F) Pulse: 62 Resp: 20 SpO2: 99% BP: (!) 194/118 BP Readings from Last 3 Encounters: 02/06/23 (!) 194/118 01/23/23 156/108 01/09/23 148/108 Wt Readings from Last 3 Encounters: 02/06/23 83.5 kg (184 lb 1.6 oz) 01/23/23 84.8 kg (187 lb) 01/09/23 83.5 kg (184 lb) BMI Readings from Last 3 Encounters: 02/06/23 30.17 kg/m 01/23/23 30.65 kg/m 01/09/23 30.15 kg/m Physical Exam Vitals and nursing note reviewed. Constitutional: General: She is not in acute distress. Appearance: Normal appearance. HENT: Head: Normocephalic and atraumatic. Eyes: Extraocular Movements: Extraocular movements intact. Cardiovascular: Rate and Rhythm: Normal rate and regular rhythm. Heart sounds: Normal heart sounds. Pulmonary: Effort: Pulmonary effort is normal. Breath sounds: Normal breath sounds. Neurological: Mental Status: She is alert. Assessment and Plan Cyclic vomiting syndrome Trial of meclizine for nausea Embend 40 mg on back order Chronic pain syndrome - oxyCODONE-Acetaminophen 10-325 MG Oral Tablet (Percocet); Take 1 Tablet by mouth every 8 hours asneeded for Pain, Moderate or Pain, Severe. Do not start before March 01, 2023. - oxyCODONE-Acetaminophen 10-325 MG Oral Tablet (Percocet); Take 1 Tablet by mouth every 8 hours asneeded for Pain, Moderate or Pain, Severe. Do not start before March 30, 2023. Uncontrolled hypertension: Severely elevated today, recheck slightly improved. Begin home monitoring. No changes today, if remains elevated would recommend referral to cardioolgy Wrap-Up Follow-up: Return in about 1 month (around 03/08/2023). | Check-out note: Please schedule HIDA scan. Please schedule follow up in 1 month with me, telemedicine Please also schedule nurse visit for BP and weight check 2 days prior to telemedicine video. documented in this encounter Nursing Notes * Martha Jolley LPN - 02/06/2023 12:57 PM EDT The patient has been properly identified by confirmation of name and date of . Chief Complaint Patient presents with Follow Up Needs clarification with new nausea med documented in this encounter Plan of Treatment Upcoming Encounters Date Type Specialty Care Team Description 03/02/2023 Nurse Only [facility], Nurse [address] [address] 03/05/2023 Telemedicine Family Medicine El[facility]farland MD [address] [facility] [place] [address] 03/21/2023 Office Visit Gastroenterology Destiney Adams CRNP [address] [place] [address] Scheduled Procedures Name Priority Associated Diagnoses Date/Ti me ESOPHAGOGASTRODUODENOSCOPY ( EGD), FLEXIBLE, TRANSORAL, DIAGNOSTIC Epigastric pain Health Maintenance Due Date Last Done Comments DISCUSS TOBACCO CESSATION (REFER TO SMARTSET #0877) 1970 Hepatitis B (1 of 3 - 3-dose series) 1970 HIV Screening 1985 Albumin/Creatinine Ratio 01/29/1988 Alpha-1 Antitrypsin 01/29/1988 Pap Smear 01/29/2000 Mammogram 2010 Cologuard 2015 Colonoscopy 2015 Colorectal Cancer Screening 2015 Fecal Occult Blood Test 2015 Sigmoidoscopy 2015 Depression Screening, Annual for Pts 12 and Over 04/30/2015 04/30/2014 *COPD SEVERITY VERIFIED BY PFT 12/26/2015 LUNG CANCER SCREENING - USE SMARTSET 61683 01/29/2020 Influenza Vaccine (FLU shot) (#1) 2023 04/11/2022, 06/02/2020, 06/14/2018, Additional history exists GFR 01/10/2024 01/09/2023, 12/11, 12/22/2022, Additional history exists O2 ASSESSMENT COMPLETED IN PAST YEAR FOR COPD 02/07/2024 02/06/2023 Diabetes Screening 01/09/2026 01/09/2023, 0 12/26/2022, 12/22/2022, [...] Diagnosis Cyclic vomiting syndrome- Primary Persistent vomiting Chronic pain syndrome Uncontrolled hypertension Unspecified essential hypertension documented in this encounter [...] the patient have Health Care Power of Jewelry Polisher? No Code Status History Code Status Date [...] Advance Directives occurred with: Patient Care Teams Graphic Editor Relationship Specialty Start Date End Date [place] [address] PCP - General Family Medicine 12/09/21 documented as of this encounter
--- OUTSIDE RECORDS SUMMARY | 2023-07-14 03:44 | External Medical Summary ---
Author Name Unknown Address Unknown Organization K1G:[facility] - [address] [place] [phone] Laboratory Report Ordering Provider Test Date Status THERESE VARGAS 02/12/2023 19:59:02 Fin al Observation Date Value Abnormality Reference (Units ) Status WBC, Total 02/12/2023 19:59:02 8.87 4.00-10.8 0 (K/uL) Final RBC 02/12/2023 19:59:02 4.94 3.85-5.15 (M/uL) Final Hemoglobin 02/12/2023 19:59:02 15.0 12.0-15.3 (g/dL) Final HCT 02/12/2023 19:59:02 43.7 36.0-45.2 (%) Final MCV 02/12/2023 19:59:02 88.5 81.5-97.5 (fL) Final MCH 02/12/2023 19:59:02 30.4 27.0-34.0 (pg) Final MCHC 02/12/2023 19:59:02 34.3 32.0-36.0 (g/dL) Final RDW 02/12/2023 19:59:02 14.8 11.5-15.5 (%) Final Platelets 02/12/2023 19:59:02 237 140-400 (K /uL) Final MPV 02/12/2023 19:59:02 10.5 6.6-11.1 ( fL) Final Performing Location [facility] - [address] [place] [phone]
--- OUTSIDE RECORDS SUMMARY | 2023-07-14 03:44 | External Medical Summary | Summary of Care ---
Author Name Unknown Organization [facility] Address [address] [place] [address] Phone [phone] Care Team Providers Care Stock Broker Name Role Phone Eliza Mcfarland MD Primary Care Prov ider Reason for Visit * Reason Comments case management Encounter Details Date Type Department Care Team Description 02/22/2023 Lockstitch Sleeve SetterHealth Administrator[address] [address] Isabel guaman RN [address] [place] [address] Medical home patient encounter* Allergies [...] with nonbilious vomiting,B12 deficiency 1000 mcg IM [id number] 07/11/2022 06/12/2023 A ctive documented as of [...] (Moderna) 04/24/2022 Pneumococcal Conjugate Vacci ne, 20-valent ([id number]) 07/04/2022 Seasonal Influenza, Quadriva lent, No Preserve, [...] of this encounter Progress Notes * Isabel guaman RN - 02/22/2023 9:05 AM EDT 1. Follow-up Routine 2. Attempted Phone Call First Attempt 3. Call Outcome Left Voicemail/Message 4. Plan To attempt another outreach documented in this encounter Plan of Treatment Upcoming Encounters Date Type Specialty Care Team Description 03/02/2023 Nurse Only Nurse [address] [address] 03/05/2023 Telemedicine Family Medicine Eliza Mcfarland MD [address] [place] [address] 03/21/2023 Office Visit Gastroenterology Destiney Adams CRNP [address] [place] [address] 04/19/2023 Imaging Radiology Scheduled Procedures Name Priority Associated Diagnoses Date/Ti me ESOPHAGOGASTRODUODENOSCOPY ( EGD), FLEXIBLE, TRANSORAL, DIAGNOSTIC Epigastric pain Health Maintenance Due Date Last Done Comments DISCUSS TOBACCO CESSATION (REFER TO SMARTSET #8768) 1970 Hepatitis B (1 of 3 - 3-dose series) 1970 HIV Screening 1985 Albumin/Creatinine Ratio 01/29/1988 Alpha-1 Antitrypsin 01/29/1988 Pap Smear 01/29/2000 Mammogram 2010 Cologuard 2015 Colonoscopy 2015 Colorectal Cancer Screening 2015 Fecal Occult Blood Test 2015 Sigmoidoscopy 2015 Depression Screening, Annual for Pts 12 and Over 04/30/2015 04/30/2014 *COPD SEVERITY VERIFIED BY PFT 12/26/2015 LUNG CANCER SCREENING - USE SMARTSET 93633 01/29/2020 Influenza Vaccine (FLU shot) (#1) 2023 [...] the patient have Health Care Power of Crematory Attendant? No Code Status History Code Status Date [...] Advance Directives occurred with: Patient Care Teams Stock Broker Relationship Specialty Start Date End Date Eliza Mcfarland MD [address] [place] [id number] PCP - General Family Medicine 12/09/21 documented as of this encounter
--- OUTSIDE RECORDS SUMMARY | 2023-07-14 03:44 | External Medical Summary | Summary of Care ---
Author Name Unknown Organization [facility] Address [address] [place] [address] Phone [phone] Care Team Providers Care Bottom Liquor Attendant Name Role Phone Eliza Mcfarland MD Primary Care Prov ider Reason for Visit * Reason Comments Emergency Department Follow-Up Encounter Details Date Type Department Care Team Description 01/23/2023 Office Visit [address] [address] Eliza Mcfarland MD [address] [place] [id number] Intractable nausea and vomiting*; Epigastric pain; Chronic pain syndrome; Cyclic vomiting syndrome Allergies Active Allergy Reactions Severity Noted Date Comments Codeine Nausea/vomiting High 03/20/2014 Eggs Or Egg-Derived Products Nausea/vomiting 01/23/2023 Naloxone Nausea/vomiting 04/07/2022 Other reaction(s): rash/hives Tramadol Hives High 03/20/2014 Hydrocodone-Acetaminophen Nausea/vomiting 12/09 Hives and nausea documented as of this encounter (statuses as of 01/30/2023) Medications Medication Sig Dispensed Refills Start Date End Date Status Polyethylene Glycol 3350 17 GM/SCOOP Oral Powder (MiraLax) Take by mouth 17 g once a week . Dissolve one heaping tablespoon in 8 ounces of water or juice. 225 g 3 Active Syringe 25G X 1" 3 ML [...] the morning. 90 Tablet 2 3 Active oxyCODONE-Aceta minophen 10-325 MG Oral Tablet (Percocet)Indic ations:Chronic pain syndrome Take 1 Tablet by mouth every 8 hours as needed for Pain, Moderate or Pain, Severe. 90 Tablet 0 3 Active Pantoprazole Sodium 40 MG Oral Tablet Delayed Release (Protonix) Take 1 Tablet by mouth in the morning and 1 Tablet before bedtime. 90 Tablet 3 3 Active Promethazine HCl 25 MG Oral Tablet (Phenergan)Vikki cations:Cyclic vomiting syndrome Take 1 Tablet by mouth every 6 hours as needed for Nausea. or vomiting 60 Tablet 6 3 Active Ventolin HFA 108 (90 Base) [...] before bedtime. 60 Tablet 3 3 Active Pantoprazole Sodium 40 MG Oral Tablet Delayed Release (Protonix) Take 1 Tablet (40 mg) by mouth in the morning and 1 Tablet (40 mg) before bedtime. 90 Tablet 3 2 01/24/20 23 Discontinued(Ref ill) QUEtiapine Fumarate 50 MG Oral Tablet (SEROquel) Take 1 Tablet (50 mg) by mouth at bedtime. 90 Tablet 1 2 01/24/20 Discontinued Ventolin HFA 108 (90 Base) MCG/ACT Inhalation Aerosol Solution Inhale 2 Puffs by mouth every 4 hours as needed for Shortness of Breath or Wheezing. 18 g 2 3 01/24/20 Discontinued(Ref ill) Promethazine HCl 25 MG Oral Tablet (Phenergan)Vikki cations:Cyclic vomiting syndrome Take 1 Tablet by mouth every 6 hours as needed for Nausea. or vomiting 40 Tablet 0 3 01/24/20 Discontinued(Ref ill) Famotidine 20 MG Oral Tablet (Pepcid) Take 1 Tablet by mouth in the morning and 1 Tablet before bedtime. 60 Tablet 11 3 01/24/20 23 Discontinued(Ref ill) clonazePAM 1 MG Oral Tablet (KlonoPIN) Take 1 Tablet by mouth in the morning and 1 Tablet before bedtime. 60 Tablet 3 3 01/24/20 23 Discontinued(Ref ill) Lisinopril 40 MG Oral Tablet Take 1 Tablet by mouth in the morning. 90 Tablet 2 3 01/24/20 23 Discontinued(Ref ill) Fluticasone-Ume clidin-Vilant 200-62.5-25 MCG/ACT Aerosol Powder Breath Activated (Trelegy Ellipta) Inhale 1 Puff by mouth daily. 60 Blister Dosing Unit 11 3 01/24/20 23 Discontinued(Ref ill) levETIRAcetam 500 MG Oral Tablet (Keppra) Take 1 Tablet by mouth 2 times a day. Food Mood and Vomiting 180 Tablet 1 3 01/24/20 Discontinued(End of Procedure) hydrALAZINE HCl 25 MG Oral Tablet (Apresoline) Take 1 Tablet by mouth 2 times a day. For blood pressure 180 Tablet 2 3 01/24/20 Discontinued(Ref ill) oxyCODONE-Aceta minophen 10-325 MG Oral Tablet (Percocet)Indic ations:Chronic pain syndrome Take 1 Tablet by mouth every 8 hours as needed for Pain, Moderate or Pain, Severe. 90 Tablet 0 3 01/24/20 Discontinued(Ref ill) Sucralfate 1 GM/10ML Oral Suspension (Carafate) Take 10 mL by mouth in the morning and 10 mL at noon and 10 mL in the evening and 10 mL before bedtime. 420 mL 5 3 01/24/20 Discontinued(Ref ill) Aprepitant 80 MG Oral Capsule (Emend) 1 capsule once time Day 2 and 3 of vomiting 10 Capsule 4 3 01/24/20 Discontinued(Ref ill) Hospital, Clinic, or Other Facility Administered Medication Ordered Dose Route Frequency Start Date End Date Status vitamin b-12 (Cyanocobalamin) inj 1,000 mcgIndications:Acute nausea with nonbilious vomiting,B12 deficiency 1000 mcg IM [id number] 07/11/2022 06/12/2023 A ctive documented as of this encounter (statuses as of 01/30/2023) Active Problems Problem Noted Date History of [...] as of this encounter (statuses as of 01/30/2023) Resolved Problems Problem Noted Date Resolved Date [...] as of this encounter (statuses as of 01/30/2023) Immunizations Name Administration Dates Next Due Covid-19, Mrna, Lnp-s, Pf, B ivalent, 50 Mcg, IM, 12 yrs and above (Moderna) 04/24/2022 Pneumococcal Conjugate Vacci ne, 20-valent ([id number]) 07/04/2022 Seasonal Influenza, Quadriva lent, No Preserve, [...] Sign Reading Time Taken Comments Blood Pressure 156/108 01/23/2023 10:52 AM EDT Pulse 73 01/23/2023 10:52 AM EDT Temperature 37.1 C (98.7 F) 01/23/2023 10:52 AM E DT Respiratory Rate 20 01/23/2023 10:52 AM EDT Oxygen Saturation 98% 01/23/2023 10:52 AM EDT Inhaled Oxygen Concentration - - Weight 84.8 kg (187 lb) 01/23/2023 10:52 AM EDT Height - - Body Mass Index 30.65 01/09/2023 11:07 AM EDT documented in this [...] Progress Notes * Eliza Mcfarland MD - 01/23/2023 11:27 AM EDT Images from the original note were not included. Portions of this record may have been dictated using voice recognition software. Variations in spelling and in vocabulary are possible and unintentional. Some errors may not be recognized or corrected at time of dictation. History of Present Illness Charleen Mathis is a 52 year old female that presents for Emergency Department Follow-Up Cyclic vomiting - etiology still in process Several treatment failures now currently stable on Embend 125 mg capsules once when vomiting. Has taken at least 3 times. Embend 80 mg 4-5 times per week with severe nausea. Trial of prophylactic treatment with Keppra, stopped due to worsening of nausea and emesis. Physical Exam Vitals: 01/23/23 1052 Temp: 37.1 C (98.7 F) Pulse: 73 Resp: 20 SpO2: 98% BP: 156/108 Physical Exam Vitals and nursing note reviewed. Constitutional: General: She is not in acute distress. Appearance: Normal appearance. HENT: Head: Normocephalic and atraumatic. Eyes: Extraocular Movements: Extraocular movements intact. Cardiovascular: Rate and Rhythm: Normal rate and regular rhythm. Heart sounds: Normal heart sounds. Pulmonary: Effort: Pulmonary effort is normal. Breath sounds: Normal breath sounds. Neurological: Mental Status: She is alert. Assessment and Plan Intractable nausea and vomiting Recommend trying to reduce dose to 40 mg. I still would like patient to proceed with underlying testing to evaluate for gastroparesis and other etiologies. Epigastric pain Chronic pain syndrome - oxyCODONE-Acetaminophen 10-325 MG Oral Tablet (Percocet); Take 1 Tablet by mouth every 8 hours asneeded for Pain, Moderate or Pain, Severe. Cyclic vomiting syndrome Patient to schedule gastric emptying study. - Promethazine HCl 25 MG Oral Tablet (Phenergan); Take 1 Tablet by mouth every 6 hours as needed for Nausea. or vomiting Wrap-Up Follow-up: Return in about 2 weeks (around 02/06/2023). | Check-out note: Please schedule gastric emptying study. documented in this encounter Nursing Notes * Celestina Valentine, ADARSH ASSIST - 01/23/2023 10:47 AM EDT The patient has been properly identified by confirmation of name and date of . Chief Complaint Patient presents with Emergency Department Follow-Up Pt still having nausea in the morning and throughout the day. She states the last time she had an emesis was Sunday. She was vomiting all day. She states she is getting high BP reads in the morning. Pt states her bp reading was 170/116 this morning she also took her meds around 730 this morning. documented in this encounter Plan of Treatment Upcoming Encounters Date Type Specialty Care Team Description 02/06/2023 Office Visit Family Medicine Eliza Mcfarland MD [address] [place] [address] 03/21/2023 Office Visit Gastroenterology Destiney Adams CRNP [address] [place] [address] Scheduled Procedures Name Priority Associated Diagnoses Date/Ti [...] 12/26/2015 LUNG CANCER SCREENING - USE SMARTSET 20838 01/29/2020 GFR 01/10/2024 01/09/2023, 12/11, 12/22/2022, Additional [...] as of this encounter Visit Diagnoses Diagnosis Intractable nausea and vomiting- Primary Persistent vomiting Epigastric pain Abdominal pain, epigastric Chronic pain syndrome Cyclic vomiting syndrome Persistent vomiting documented in [...] the patient have Health Care Power of Subacute Nurse? No Code Status History Code Status [...] Advance Directives occurred with: Patient Care Teams Bottom Liquor Attendant Relationship Specialty Start Date End Date Eliza Mcfarland MD [address] [place] [address] PCP - General Family Medicine 12/09/21 documented as of this encounter
--- OUTSIDE RECORDS SUMMARY | 2023-07-14 03:44 | External Medical Summary ---
Author Name Unknown Address Unknown Organization K1G:[facility] - [address] [facility] [address] Laboratory Report Ordering Provider Test Date Status THERESE VARGAS 02/12/2023 19:59:02 Fin al Observation Date Value Abnormality Reference (Units ) Status SYNC LEUKOCYTES IN BLOOD BY AUTOMATED COUNT 02/12/2023 19:59:02 8.87 4.00-10.80 (K/uL) Final Segs 02/12/2023 19:59:02 60.0 40.0-75.0 (%) Final Lymphs % 02/12/2023 19:59:02 27.6 18.0-42.0 (%) Final Monos 02/12/2023 19:59:02 5.4 1.0-11.0 (%) Final Eosinophils 02/12/2023 19:59:02 6.4 Above high normal 0.0-6.0 (%) Final Basos 02/12/2023 19:59:02 0.6 0.0-2.0 (%) Final Absolute Segs 02/12/2023 19:59:02 5.32 1.80-7.70 (K/uL) Final Lymphs, absolute 02/12/2023 19:59:02 2.45 1.00-4.80 (K/ul) Final Monos, Abs 02/12/2023 19:59:02 0.48 0.00-1.10 (K/uL) Final Eos, Abs 02/12/2023 19:59:02 0.57 0.00-0.70 (K/uL) Final Basos, Abs 02/12/2023 19:59:02 0.05 0.00-0.20 (K/uL) Final Performing Location [facility] - [address] [facility] [address]
--- OUTSIDE RECORDS SUMMARY | 2023-07-14 03:44 | External Medical Summary | Summary of Care ---
Author Name Unknown Organization [facility] Address [address] [place] [address] Phone [phone] Care Team Providers Care Line Up Worker Name Role Phone Eliza Mcfarland MD Primary Care Prov ider Reason for Visit * Reason Comments case management Encounter Details Date Type Department Care Team Description 01/23/2023 Business Rules DeveloperCommercial Producer[address] [address] Isabel Christensen, RN [address] [place] [address] Medical home patient encounter* Allergies Active Allergy Reactions Severity Noted Date Comments Codeine Nausea/vomiting High 03/20/2014 Naloxone Nausea/vomiting 04/07/2022 Other reaction(s): rash/hives Tramadol Hives High 03/20/2014 Hydrocodone-Acetaminophen Nausea/vomiting 12/09 Hives and nausea documented as of this encounter (statuses as of 01/23/2023) Medications Medication Sig Dispensed Refills Start Date [...] before bedtime. 90 Tablet 3 07/25/2022 Active Syringe 25G X 1" 3 [...] the morning. 90 Tablet 2 11/15/2022 Active Fluticasone-Ume clidin-Vilant 200-62.5-25 MCG/ACT Aerosol Powder Breath Activated (Trelegy Ellipta) Inhale 1 Puff by mouth daily. 60 Blister Dosing Unit 11 12/26/2022 Active levETIRAcetam 500 MG Oral Tablet (Keppra) Take 1 Tablet by mouth 2 times a day. Food Mood and Vomiting 180 Tablet 1 12/26/2022 Active Additional Information Patient not taking.Reported on 01/23/2023 hydrALAZINE HCl 25 MG Oral Tablet (Apresoline) Take 1 Tablet by mouth 2 times a day. For blood pressure 180 Tablet 2 12/26/2022 Active oxyCODONE-Aceta minophen 10-325 MG Oral Tablet [...] 10 Capsule 0 01/17/2023 Active QUEtiapine Fumarate 50 MG Oral Tablet (SEROquel) Take 1 Tablet (50 mg) by mouth at bedtime. 90 Tablet 1 07/25/2022 3 Discontinued Hospital, Clinic, or Other Facility Administered Medication Ordered Dose Route Frequency Start Date End Date Status vitamin b-12 (Cyanocobalamin) inj 1,000 mcgIndications:Acute nausea with nonbilious vomiting,B12 deficiency 1000 mcg IM [id number] 07/11/2022 06/12/2023 A ctive documented as of this encounter (statuses as of 01/23/2023) Active Problems Problem Noted Date History of [...] as of this encounter (statuses as of 01/23/2023) Resolved Problems Problem Noted Date Resolved Date [...] as of this encounter (statuses as of 01/23/2023) Immunizations Name Administration Dates Next Due Covid-19, Mrna, Lnp-s, Pf, B ivalent, 50 Mcg, IM, 12 yrs and above (Moderna) 04/24/2022 Pneumococcal Conjugate Vacci ne, 20-valent ([id number]) 07/04/2022 Seasonal Influenza, Quadriva lent, No Preserve, [...] Progress Notes * Isabel Christensen RN - 01/23/2023 11:30 AM EDT Tier 2 follow-up. Charleen was seen in clinic today prior to PCP appointment. CM was able to confirm physical address for delivery of [facility] BP cuff. She denies dizziness or lightheadedness today. She has not had any further falls/injuries since last contact. She does c/o of ongoing nausea but no vomiting. When she has vomiting, she takes emend which she say's is "gold". She states it is effective. She has received her oxygen and is wearing it at HS as prescribed. plan for 1 week f/u documented in this encounter Plan of Treatment Upcoming Encounters Date Type Specialty Care Team Description 01/31/2023 Imaging Radiology 03/21/2023 Office Visit Gastroenterology Destiney Adams CRNP [address] [place] [address] Scheduled Procedures Name Priority Associated Diagnoses Date/Ti [...] 12/26/2015 LUNG CANCER SCREENING - USE SMARTSET [id number] 01/29/2020 HbA1c 06/08/2023 06/08/2022 GFR 01/10/2024 01/09/2023, [...] the patient have Health Care Power of Lens Mold Setter? No Code Status History Code Status Date [...] Advance Directives occurred with: Patient Care Teams Line Up Worker Relationship Specialty Start Date End Date Eliza Mcfarland MD [address] [place] [phone] PCP - General Family Medicine 12/09/21 documented as of this encounter
[2023-07-14] MEDS: oxyCODONE HCL IR 5 MG TAB (IMMEDIATE RELEASE) PO PRN ×3 (05:39→21:27)
[2023-07-14] MEDS: HEPARIN SOD 5,000 UNIT/0.5 ML VIAL SQ SCH ×3 (06:31→21:30)
[2023-07-14] MEDS ORDERED: POTASSIUM CHLORIDE 20 MEQ in LACTATED RINGER'S 1,000 ML IV SCH (08:00)
--- NOTE | 2023-07-14 08:26 | Communication Note ---
Date of Service: July 14, 2023 Pt seen in the AM. States that her N/V has resolved. On fluids, also tolerating PO intake with no issues. Cr downtrending from 4.87-->3.97-->2.48 Given that Cr still significantly elevated, continue with IV hydration at this time. Will continue to monitor.
[2023-07-14 08:34] LABS: Base Excess VBG -1.6 mEq/L; HCO3 VBG 26 mmol/L; Oxygen Saturation VBG < 60.0 %; PCO2 VBG 52 mmHg (38-50); PO2 VBG 26 mmHg
--- NOTE | 2023-07-14 08:40 | XRay Report ---
XR chest 1V not portable CLINICAL HISTORY: Chest pain, nonspecific. COMPARISON STUDY: Chest radiograph July 29, 2022. FINDINGS: Lung volumes are normal. Lungs are clear. There is no pneumothorax or pleural effusion. Car diac size is normal. Mediastinal contours are normal. There is no evidence for pulmonary edema. IMPRESSION: No acute cardiopulmonary findings. ACT 112: Negative or not required by law. Electronically signed by: Aleksandar Mcallister M.D. 07/14/2023 8:38 AM
[2023-07-14] MEDS: PANTOprazole 40 MG TAB PO SCH ×2 (08:56→21:27)
[2023-07-14] MEDS: clonazePAM 1 MG TAB PO SCH ×2 (08:56→21:28)
[2023-07-14] MEDS: ACETAMINOPHEN 325 MG TAB PO PRN ×2 (08:57→21:26)
[2023-07-14 08:59] LABS: BUN Creatinine Ratio 22.6 (10-20); Calcium 8.7 mg/dl (8.6-10.3); Creatinine Clr Calc Pharmacy 28.5 ml/min; Est GFR (African American) 24.8 ml/min; Est GFR (Non-African American) 21.4 ml/min; Potassium 3.9 mmol/L (3.5-5.1)
[2023-07-14] MEDS: FLUTICASONE FUROATE 200MCG 14 PUFFS/INHALER INH SCH (08:59)
[2023-07-14] MEDS: UMECLIDINIUM/VILANTEROL 62.5/25MCG 7 PUFFS/INHALER INH SCH (08:59)
[2023-07-14 09:00] LABS: Basophils # (auto) 0.07 K/uL (0.00-0.20); Basophils % (auto) 0.6 %; Eosinophils # (auto) 0.11 K/uL (0.00-0.50); Eosinophils % (auto) 0.9 %; Hematocrit (blood only) 40.4 % (37.0-47.0); Hemoglobin 14.1 g/dl (12.0-16.0); Immature Granulocytes # (auto) 0.04 K/uL (0.01-0.20); Immature Granulocytes % (auto) 0.3 %; Lymphocytes # (auto) 3.39 K/uL (1.20-3.40); Lymphocytes % (auto) 28.7 %; Mean Corpuscular Hemoglobin 29.6 pg (25.0-34.0); Mean Corpuscular Hgb Conc 34.9 g/dL (32.0-36.0); Mean Corpuscular Volume 84.7 fL (80.0-100.0); Mean Platelet Volume 11.3 fL (9.4-12.4); Monocytes # (auto) 0.96 K/uL (0.11-0.59); Monocytes % (auto) 8.1 %; Neutrophils # (auto) 7.26 K/uL (1.40-6.50); Neutrophils % (auto) 61.4 %; Platelet Count 243 K/uL (130-400); RDW Coefficient of Variation 14.1 % (11.5-14.5); RDW Standard Deviation 43.8 fL (36.4-46.3); Red Blood Count 4.77 M/uL (4.20-5.40); White Blood Count 11.83 K/ul (4.8-10.8)
[2023-07-14] MEDS ORDERED: NON-FORMULARY MEDICATION (Fluticasone-Umeclidin-Vilanter [Trelegy Ellipta] 200-62.5-25 mcg INH SCH (09:00)
--- NOTE | 2023-07-14 11:56 | Electrocardiogram Report ---
Test Reason : Blood Pressure : / mmHG Vent. Rate : 084 BPM Atrial Rate : 084 BPM P-R Int : 128 ms QRS Dur : 088 ms QT Int : 356 ms P-R-T Axes : 062 025 074 degrees QTc Int : 420 ms Normal sinus rhythm Possible Left atrial enlargement Borderline ECG When compared with ECG of 10-NOV-2022 11:46, No significant change was found Confirmed by Jorge Kumar ([id number]) on 07/14/2023 11:56:02 AM Referred By: REFERRED SELF Confirmed By:Jorge Kumar
[2023-07-14] MEDS: SODIUM CHLORIDE 0.9% 1,000 ML IV SCH (15:37)
[2023-07-14] MEDS: HYDROmorphone INJ 0.5 MG/0.5 ML SYR IV PRN (16:40)
[2023-07-14] MEDS: NICOTINE 21 MG/24 HR TDSY TD SCH (18:34)
[2023-07-15] MEDS: ACETAMINOPHEN 325 MG TAB PO PRN ×2 (00:28→04:54)
[2023-07-15] MEDS: SODIUM CHLORIDE 0.9% 1,000 ML IV SCH (03:19)
[2023-07-15] MEDS: oxyCODONE HCL IR 5 MG TAB (IMMEDIATE RELEASE) PO PRN ×2 (04:55→09:36)
[2023-07-15] MEDS: HEPARIN SOD 5,000 UNIT/0.5 ML VIAL SQ SCH (04:56)
[2023-07-15 07:02] LABS: Basophils # (auto) 0.07 K/uL (0.00-0.20); Eosinophils # (auto) 0.28 K/uL (0.00-0.50); Eosinophils % (auto) 3.9 %; Hematocrit (blood only) 36.8 % (37.0-47.0); Hemoglobin 12.6 g/dl (12.0-16.0); Immature Granulocytes # (auto) 0.02 K/uL (0.01-0.20); Immature Granulocytes % (auto) 0.3 %; Lymphocytes # (auto) 2.33 K/uL (1.20-3.40); Lymphocytes % (auto) 32.5 %; Mean Corpuscular Hemoglobin 29.3 pg (25.0-34.0); Mean Corpuscular Hgb Conc 34.2 g/dL (32.0-36.0); Mean Corpuscular Volume 85.6 fL (80.0-100.0); Mean Platelet Volume 11.2 fL (9.4-12.4); Monocytes % (auto) 8.4 %; Neutrophils # (auto) 3.88 K/uL (1.40-6.50); Neutrophils % (auto) 53.9 %; Platelet Count 178 K/uL (130-400); RDW Coefficient of Variation 14.2 % (11.5-14.5); RDW Standard Deviation 44.3 fL (36.4-46.3); White Blood Count 7.18 K/ul (4.8-10.8)
[2023-07-15 07:40] LABS: Albumin Globulin Ratio 1.8 (0.9-2); Albumin Level 3.5 gm/dl (3.4-5.0); BUN Creatinine Ratio 33.9 (10-20); Bilirubin,Total 0.4 mg/dl (0.2-1.0); Calcium 8.3 mg/dl (8.6-10.3); Creatinine Clr Calc Pharmacy 64.8 ml/min; Est GFR (African American) 67.1 ml/min; Est GFR (Non-African American) 57.9 ml/min; Magnesium 1.8 mg/dl (1.7-2.4); Phosphorus 2.4 mg/dl (2.5-4.9); Potassium 4.1 mmol/L (3.5-5.1); Total Protein 5.5 gm/dl (6.0-8.3)
[2023-07-15] MEDS: clonazePAM 1 MG TAB PO SCH (08:15)
[2023-07-15] MEDS: UMECLIDINIUM/VILANTEROL 62.5/25MCG 7 PUFFS/INHALER INH SCH (08:16)
[2023-07-15] MEDS: NICOTINE 21 MG/24 HR TDSY TD SCH (08:16)
[2023-07-15] MEDS: FLUTICASONE FUROATE 200MCG 14 PUFFS/INHALER INH SCH (08:16)
[2023-07-15] MEDS: PANTOprazole 40 MG TAB PO SCH (08:16)
[2023-07-15] MEDS ORDERED: POT PHOSPHATE MONOBASIC W/ SOD TAB PO ONE (08:17)
[2023-07-15] MEDS: HYDROmorphone INJ 0.5 MG/0.5 ML SYR IV PRN (08:40)
--- NOTE | 2023-07-15 12:44 | Discharge Summary ---
Discharge Summary Date of Service July 15, 2023 Notes For Next Care Provider Closely monitor kidney function Encourage followup with GI for cyclic vomiting syndrome Medication Changes From Visit None Admission HPI Per Admitting Provider History obtained from patient and records. Medical history significant for hypertension, COPD, HCV status posttreatment, GERD, cyclic vomiting syndrome, chronic hyponatremia, anxiety/mood disorder, chronic pain/narcotic dependence as per records, ongoing tobacco abuse. Last confinement April 2022 for cyclic vomiting syndrome. Last week, patient had cyclic vomiting attack. Emesis episodes without unusual abdominal pain. No diarrhea or constipation or headache symptoms. No fever, no chills. Poor appetite. Symptoms resolved. 2 days ago, patient experienced burning chest pain more intense than GERD. Denies hematemesis/black/bloody stools. No cough or unusual shortness of breath. SBP 80s upon arrival at the ER. SBP currently 100s after IVF boluses administered at the ER. 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 Admission Exam Per Admitting Provider GENERAL: Comfortable, obese, no respiratory distress SKIN: Normal color, warm HEENT: [place] palpebral conjunctivae, no ptosis, dry buccal mucosa NECK : Supple, short neck, no tenderness CHEST : Decreased breath sounds, no tenderness HEART : Bradycardic, no obvious murmurs ABDOMEN: Some distention, nontender EXTREMITIES : No LE swelling/tenderness, no other conspicuous deformities noted NEUROLOGIC : Coherent, no facial asymmetry, no other gross focality Principal Dx & Hospital Course #1 = Principal Diagnosis (1) Acute dehydration: (2) Hypotension: (3) Chest pain: (4) Hepatitis: (5) Cyclic vomiting syndrome: (6) Prediabetes: (7) Anxiety: Plan Pt has a PMhx significant for cyclic vomiting syndrome, hypertension, COPD, HCV status posttreatment, GERD, chronic hyponatremia, anxiety/mood disorder, chronic pain/narcotic dependence as per records, ongoing tobacco abuse admitted with hypotension and acute renal failure. Acute renal failure Baseline Cr of 1.10 in October 2022 On admission, cr of 4.87 Hydrated with IV fluids, Cr trended down to 1.09 on discharge Continue to monitor after discharge PCP follow up Hypotension Transient hypotension secondary to hypovolemia secondary to recent cyclic vomiting attack. Resolved on discharge Home hydralazine and lisinopril resumed on discharge Chest pain Pt with chest pain on admission hs trop elevated but downtrended from 47.6-->35.9 EKG with NSR Currently resolved on discharge PCP follow up Hypokalemia Potassium was 3.3 on admission 4.1 on discharge Continue to monitor PCP follow up Cyclic Vomiting Syndrome Follows with GI, Dr Bradford IV hydration while hospitalized, antiemetics Continue home regimen with close GI and pcp follow up COPD Stable Encourage tobacco use cessation HCV status posttreatment Stable chronic hyponatremia Sodium of 131 on admission Resolved on discharge with level at 138 after hydration Stable anxiety/mood disorder at baseline chronic pain/narcotic dependence Stable Hyperglycemia prediabetes hemoglobin A1c of 5.8 Discharge Exam General: Alert, oriented. No acute distress Skin: No noted rashes or bruises Psych: Appropriate mood and affect Neuro: No gross deficits HEENT: NC/AT Chest: Nontender to palpation. CV: RRR, Normal s1, s2. No murmurs appreciated Resp: Breath sounds clear bilaterally, no increased effort of breathing. Abdomen: Soft, nontender, nondistended. Extremities: No edema in lower extremities bilaterally. Updated Medication List Medication Instructions Recorded Confirmed Type albuterol sulfate 90 mcg/actuation 2 puff inhalation QID PRN 05/20/21 07/13/23 Rx aerosol inhaler Shortness Of Breath Or Wheezing or Cough #8.5 grams pantoprazole 40 mg tablet,delayed 40 mg PO BID #60 tabs 12/02/21 07/14/23 Rx release clonazepam 1 mg tablet 1 mg PO [facility] 04/19/22 07/14/23 History eszopiclone 2 mg tablet 2 mg PO HS 07/13/23 07/14/23 History fluticasone fur. 200 mcg-umeclid 1 inh inhalation QAM 07/13/23 07/14/23 History 62.5 mcg-vilant 25 mcg inhalat.powder (Trelegy Ellipta) lisinopril 40 mg tablet 40 mg PO QAM 07/13/23 07/14/23 History prochlorperazine maleate 10 mg 10 mg PO UD PRN Nausea 07/13/23 07/13/23 History tablet hydralazine 25 mg tablet 50 mg PO BID 07/14/23 07/14/23 History oxycodone-acetaminophen 10 mg-325 1 tab PO QID 07/14/23 07/14/23 History mg tablet promethazine 25 mg tablet 25 mg PO Q6 PRN Nausea 07/14/23 07/14/23 History Hospital Stay Data Consultations 07/13/23 23:51 ED Decision to Admit Stat Diagnostic Imagining Performed Chest X-Ray 07/13/23 21:29 XR chest 1V not portable CLINICAL HISTORY: Chest pain, nonspecific. COMPARISON STUDY: Chest radiograph July 29, 2022. FINDINGS: Lung volumes are normal. Lungs are clear. There is no pneumothorax or pleural effusion. Cardiac size is normal. Mediastinal contours are normal. There is no evidence for pulmonary edema. IMPRESSION: No acute cardiopulmonary findings. ACT 112: Negative or not required by law. Electronically signed by: Aleksandar Mcallister M.D. 07/14/2023 8:38 AM Discharge Instructions Given to Patient (Per Discharging Provider) Ms. Mathis, You were admitted with acute kidney failure. Your kidney function is now back to normal after IV hydration and your vomiting has resolved. We ask that you continue to keep follow up with your primary care provider and functional manager after discharge. Please continue to take your home medications as prescribed. It is ok to start taking your blood pressure medications once more. It was a pleasure taking care of you while you were here. Total Time Total Time Spent Total Time Spent (In Minutes): > 30 minutes
== END 2023-07-15 13:16 | disposition home or self-care (01) | DRG 683 ==
LOC: ED 21:19 → EDINP 07-14 01:46 → 2N 07-14 17:15

== ENCOUNTER 2024-03-27 10:04 | Inpatient (IN) ==
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
[2024-03-27] MEDS: PROMETHAZINE 25 MG/51 ML BAG IV STA (10:29)
[2024-03-27] MEDS: hydrALAZINE HCL 20 MG/ML VIAL IV STA ×3 (10:30→12:51)
[2024-03-27] MEDS: SODIUM CHLORIDE 0.9% 1,000 ML IV SCH ×2 (10:32→16:20)
--- NOTE | 2024-03-27 10:43 | XRay Report ---
XR chest 1V portable CLINICAL HISTORY: weakness COMPARISON STUDY: Chest radiograph July 13, 2023. FINDINGS: Lung volumes are normal. Lungs are clear. There is no pneumothorax or pleural effusion. Car diac size is normal. Mediastinal contours are normal. There is no evidence for pulmonary edema. IMPRESSION: No acute cardiopulmonary findings. ACT 112: Negative or not required by law. Electronically signed by: Aleksandar Mcallister M.D. 03/27/2024 10:42 AM
[2024-03-27 10:57] LABS: Basophils # (auto) 0.08 K/uL (0.00-0.20); Basophils % (auto) 0.6 %; Eosinophils # (auto) 0.03 K/uL (0.00-0.50); Eosinophils % (auto) 0.2 %; Immature Granulocytes # (auto) 0.05 K/uL (0.01-0.20); Immature Granulocytes % (auto) 0.4 %; Lymphocytes # (auto) 1.94 K/uL (1.20-3.40); Lymphocytes % (auto) 14.4 %; Mean Corpuscular Hemoglobin 28.5 pg (25.0-34.0); Mean Corpuscular Hgb Conc 34.8 g/dL (32.0-36.0); Mean Platelet Volume 11.4 fL (9.4-12.4); Monocytes # (auto) 0.44 K/uL (0.11-0.59); Monocytes % (auto) 3.3 %; Neutrophils # (auto) 10.91 K/uL (1.40-6.50); Neutrophils % (auto) 81.1 %; Platelet Count 374 K/uL (130-400); RDW Coefficient of Variation 14.4 % (11.5-14.5); RDW Standard Deviation 42.4 fL (36.4-46.3); Red Blood Count 5.61 M/uL (4.20-5.40); White Blood Count 13.45 K/ul (4.8-10.8)
[2024-03-27 11:09] LABS: Appearance Urine Clear (Clear); Bacteria Urine Automated None Seen (None Seen); Bilirubin Urine Negative (Negative); Blood Urine Negative (Negative); Cast Urine Automated 0-2 /lpf (0-2); Color Urine Yellow; Epithelial Cell Urine Auto 0-2 /hpf (0-2); Glucose Urine UA 2+ (Negative); Ketones Urine 2+ (Negative); Leukocyte Esterase Urine Negative (Negative); Nitrite Urine Negative (Negative); Protein Urine 2+ (Negative); RBC Urine Automated 0-2 /hpf (0-2); Specific Gravity Urine 1.013 (1.000-1.030); Urobilinogen Urine Negative (Negative); WBC Urine Automated 0-5 /hpf (0-5)
[2024-03-27 11:11] LABS: Albumin Level 5.1 gm/dl (3.4-5.0); Bilirubin,Total 1.3 mg/dl (0.2-1.0); Calcium 10.7 mg/dl (8.6-10.3); Magnesium 1.8 mg/dl (1.7-2.4); Potassium 3.8 mmol/L (3.5-5.1)
[2024-03-27 11:17] LABS: Albumin Globulin Ratio 1.6 (0.9-2); BUN Creatinine Ratio 10.2 (10-20); Creatinine Clr Calc Pharmacy 83.3 ml/min; Est GFR (African American) 86.3 ml/min; Est GFR (Non-African American) 74.5 ml/min; Globulin 3.1 gm/dl (2.5-4.0); Total Protein 8.2 gm/dl (6.0-8.3)
[2024-03-27 11:17] LABS: Influenza A virus by PCR Negative (Neg); Influenza B virus by PCR Negative (Neg); RSV by PCR Negative (Neg); SARS CoV2 RNA(COVID-19) Ceph NEGATIVE (Negative)
[2024-03-27 11:21] LABS: Troponin I High Sensitivity 7.8 pg/ml (0-14)
[2024-03-27 11:30] LABS: Thyroid Stimulating Hormone 1.275 uIu/ml (0.300-4.500)
[2024-03-27] MEDS: ONDANSETRON INJ 2 MG/ML 2 ML VIAL IV STA ×2 (11:52→21:32)
[2024-03-27] MEDS: LORazepam 1 MG/1 ML SYR ED Inj Use IV STA (11:54)
[2024-03-27] MEDS: LACTATED RINGER'S 1,000 ML IV ONE (12:50)
[2024-03-27] MEDS: METOCLOPRAMIDE HCL INJ 5 MG/ML 2 ML VIAL IV ONE (12:50)
[2024-03-27] MEDS: lisinopril 20 MG TAB PO STA (12:51)
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
[2024-03-27 13:45] LABS: Amphetamines+Metham, Urine Neg (Neg); Barbiturates, Urine Neg (Neg); Benzodiazepine, Urine Neg (Neg); Cocaine, Urine Neg (Neg); Fentanyl, Urine Neg (Neg); MDMA (Ecstacy), Urine Neg (Neg); Marijuana, Urine Pos (Neg); Methadone, Urine Neg (Neg); Opiate, Urine Neg (Neg); Phencyclidine, Urine Neg (Neg)
--- NOTE | 2024-03-27 14:39 | CT Scan Report ---
ABDOMEN AND PELVIS CT WITHOUT CONTRAST CT DOSE: 1254.12 mGy.cm HISTORY: Abdominal pain, N/V TECHNIQUE: Multiaxial CT images of the abdomen and pelvis were performed without contrast. A dose lo wering technique was utilized adhering to the principles of ALARA. COMPARISON STUDY: Abdomen and pelvis CT 04/19/2022. FINDINGS: The lung bases are clear. No pneumoperitoneum. No pneumatosis. No acute fractures. There is a small hiatus hernia. The unenhanced liver, gallbladder, pancreas, spleen, and adrenal glands are u nremarkable. Normal right kidney. Mild fullness within the left renal collecting system without tierra hydronephrosis. This remains unchanged and is likely chronic. No renal or ureteral stones. No retrop eritoneal or pelvic lymphadenopathy. Calcified plaque within the normal caliber abdominal aorta. No p elvic free fluid. The bladder, uterus, bilateral adnexa are unremarkable. Suboptimal evaluation for b owel pathology due to the lack of intravenous and oral contrast. However, there is no definite bowel wall thickening or obstruction. The colon is decompressed resulting in suboptimal evaluation. Prior a ppendectomy. IMPRESSION: 1. Mild fullness within the left renal collecting system without tierra hydronephrosis. This remains u nchanged and could represent a low-grade chronic UPJ type obstruction. 2. No renal or ureteral stones. 3. No bowel wall thickening or obstruction. 4. Prior appendectomy. 5. Additional findings as described above. ACT 112: Negative or not required by law. Electronically signed by: Venkat Ramires M.D. 03/27/2024 2:38 PM
--- OUTSIDE RECORDS SUMMARY | 2024-03-27 15:51 | External Medical Summary | Summary of Care ---
Author Name Unknown Organization [facility] Address [address] [place] [address] Phone [phone] Care Team Providers Care Vp Legal Affairs Name Role Phone Eliza Mcfarland MD Primary Care Prov ider Reason for Visit * - Authorized Specialty Diagnoses / Procedures Referred By Lorenzo ham Referred To Contact Referral ID Status Reason Start Date Expiration Date V isits Requested Visits Authorized [id number] Authorized 01/12/2024 01/10/[phone] Encounter Details Date Type Department Care Team (Late st Contact Info) Description 02/29/2024 10:30 AM EDT Telemedicine Psychiatry [address], [place] [address] [place] [address] [address] Moore MD [address], [place] [id number] JESSIE (generalized anxiety disorder)*; Major depressive disorder, recurrent episode, moderate (HCC); PTSD (post-traumatic stress disorder) Allergies Active Allergy Reactions Criticality Noted Date Comments Codeine Nausea/vomiting High 03/20/2014 Morphine Itching,Other (Pleas e comment),Nausea/vomit ing 05/24/2017 Naloxone Nausea/vomiting 04/07/2022 Other reaction(s): rash/hives Tramadol Hives High 03/20/2014 Hydrocodone-Acetamino phen Nausea/vomiting 12/09/2021 Hives and nausea documented as of this encounter (statuses as of 02/29/2024) Medications Medication Sig Dispensed Refills Start Date End Date Status Fluticasone-Umeclid in-Vilant 200-62.5-25 MCG/ACT Aerosol Powder Breath Activated (Trelegy Ellipta) Inhale 1 Puff by mouth daily. 60 Blister Dosing Unit 11 01/23/2023 Active Meclizine HCl 25 MG Oral Tablet (Antivert) Take 1-2 Tablets by mouth 2 times a day as needed for Nausea. 60 Tablet 1 02/06/2023 Active Ventolin HFA 108 (90 Base) MCG/ACT Inhalation Aerosol Solution Inhale 2 Puffs by mouth every 4 hours as needed for Shortness of Breath or Wheezing. 18 g 2 06/18/2023 Active Azithromycin 250 MG Oral Tablet (Zithromax) Take 2 tabs by mouth on the first day, then 1 tab daily on days two through five 6 Tablet 06/18/2023 Active Additional Information Patient not taking.Reported on 08/03/2023 Comirnaty 30 MCG/0.3ML Intramuscular Suspension 06/15/2023 Active Aprepitant 80 MG Oral Capsule (Emend) Take 1 capsule by mouth one time daily on Day 1 of vomiting 10 Capsule 2 09/18/2023 Active Lisinopril 40 MG Oral Tablet Take 1 Tablet by mouth in the morning. 90 Tablet 2 09/18/2023 Active hydrALAZINE HCl 50 MG Oral Tablet (Apresoline) Take 1 Tablet by mouth 2 times a day. 180 Tablet 2 09/24/2023 Active Ondansetron 4 MG Oral Tablet Disintegrating (Zofran) 1 tab(s) By Mouth three times daily for 5 days as needed for nausea or vomiting. 15 Tablet 10/07/2023 Active Sucralfate 1 GM/10ML Oral Suspension (Carafate) Take 10 mL by mouth in the morning and 10 mL at noon and 10 mL in the evening and 10 mL before bedtime. 420 mL 5 10/30/2023 Active Aprepitant 40 MG Oral Capsule 1 capsule once daily on Day 2 and Day 3 of vomiting 10 Capsule 4 10/30/2023 Active Diclofenac Sodium 1 % External Gel (Voltaren) Apply 2 grams to area of pain 4 times per day as needed for pain 100 g 5 12/12/2023 Active Prochlorperazine Maleate 10 MG Oral Tablet (Compazine) Take 1 Tablet by mouth at bedtime. 90 Tablet 2 12/12/2023 Active Promethazine HCl 25 MG Oral Tablet (Phenergan) Take 1 Tablet by mouth every 6 hours as needed for Nausea. or vomiting 12 Tablet 01/10/2024 Active Famotidine 20 MG Oral Tablet (Pepcid) Take 1 Tablet by mouth in the morning and 1 Tablet before bedtime. 180 Tablet 3 02/01/2024 Active Pantoprazole Sodium 40 MG Oral Tablet Delayed Release (Protonix) Take 1 tablet by mouth daily 90 Tablet 3 02/01/2024 Active oxyCODONE-Acetamino phen 10-325 MG Oral Tablet (Percocet)Indicatio ns:Chronic pain syndrome,Lumbar degenerative disc disease Take 1 Tablet by mouth every 6 hours as needed for Pain, Moderate or Pain, Severe for 7 days, THEN 1 Tablet every 8 hours as needed for Pain, Moderate or Pain, Severe for 7 days, THEN 0.5 Tablets every 8 hours as needed for Pain, Moderate or Pain, Severe for 8 days, THEN 0.5 Tablets 2 times a day as needed for Pain, Moderate or Pain, Severe for 8 days, THEN 0.5 Tablets daily as needed for Pain, Moderate or Pain, Severe for up to 8 days. Do not start before March 06, 2024. 73 Tablet 03/06/2024 04/13/20 24 Active Mirtazapine 30 MG Oral Tablet (Remeron) Take 1 Tablet by mouth at bedtime. 30 Tablet 1 02/29/2024 04/29/20 24 Active ALPRAZolam 1 MG Oral Tablet (xaNAX) Take 1 Tablet by mouth 3 times a day as needed for Anxiety. 90 Tablet 1 02/29/2024 Active Mirtazapine 30 MG Oral Tablet (Remeron) Take 0.5 Tablets by mouth at bedtime for 7 days, THEN 1 Tablet at bedtime. 34 Tablet 01/31/2024 02/29/20 24 Discontinu ed(Refill) documented as of this encounter (statuses as of 02/29/2024) Active Problems Problem Noted Date Diagnosed Date Major depressive disorder, recurrent episode, mo derate 01/22/2024 PTSD (post-traumatic stress disorder) 01/22/2024 Gastro-esophageal reflux disease without esophag itis 09/18/2023 Chronic obstructive pulmonary disease 09/18/2023 Dependence on nocturnal oxygen therapy Current smoker 06/19/2023 Inflammatory liver disease 06/19/2023 Chronic insomnia 06/18/2023 Overview: Failed trazodone, seroquel, mirtazpine, melatonin, and Ambien. History of hepatitis C 06/18/2023 Cyclic vomiting syndrome 05/01/2023 Intractable vomiting 05/01/2023 History of appendectomy 12/26/2022 COPD, severe 12/26/2022 Intractable nausea and vomiting 12/21/2022 Acute hyponatremia 09/14/2022 JESSIE (generalized anxiety disorder) 07/04/2022 Abdominal pain 06/12/2022 Gastroesophageal reflux disease 12/09/2021 Hypertensive urgency 05/23/2017 Recurrent generalized abdominal pain 05/23/2017 Alkalosis, metabolic 12/06/2014 Chronic back pain 12/06/2014 MEDICATION USE AGREEMENT 07/08/2014 Overview: Breech of narcotics agreement prior for oxycodone/hydrocodone 2013 New agreement for Clonazepam only entered on 04/07/22. HTN, goal below 140/90 03/20/2014 Lumbar degenerative disc disease 03/20/2014 Migraine 03/20/2014 Chronic airway obstruction, not elsewhere classi fied Lumbago Other psoriasis Dermatophytosis of foot documented as of this encounter (statuses as of 02/29/2024) Resolved Problems Problem Noted Date Diagnosed Date Resolved Date Food insecurity 08/20/2023 02/21/2024 Overview: Per [facility] Protocol Prediabetes 12/26/2022 01/25/2023 Acute renal failure 12/21/2022 12/27/19 23 Sepsis 09/14/2022 12/26/2022 GEORGINA (acute kidney injury) 09/14/2022 History of hepatitis C 07/25/202206/18 Hypertension 06/12/2022 12/26/2022 Nausea 06/12/2022 09/18/2023 Chronic narcotic use 05/24/2017 022 Tobacco abuse disorder 05/23/201707/04 Nausea, vomiting and diarrhea 12/06/2014 09/18/2023 HTN, goal below 130/80 12/06/201412/26 Narcotic dependence 12/06/2014 10/30/19 24 Chronic hepatitis C virus infection 07/25/2022 Overview: Treated with Interferon HCV RNA negative as of 2016 documented as of this encounter (statuses as of 02/29/2024) Immunizations Name Administration Dates Next Due COVID-19, MRNA-LNP, 23-24, P F, 30 MCG/0.3 mL, 12 YRS AND ABOVE, IM (PFIZER-Comirnaty) 06/15/2023 COVID-19, MRNA-LNP, 23-24, P F, 50 MCG/0.5 mL, 12 YRS AND ABOVE, IM (MODERNA-Spikevax) 07/24/2023 Covid-19, Mrna, Lnp-s, Pf, B ivalent, 50 Mcg, IM, 12 yrs and above (Moderna) 04/24/2022 Pneumococcal Conjugate Vacci ne, 20-valent ([id number]) 03/31/2023,07/04/2022 Seasonal Influenza, Quadriva lent Hd (Fluzone [...] Used Date Smoking Tobacco: Every Day Cigarettes 0.5 25 Smokeless Tobacco: Never Alcohol Use Standard Drinks/Week Comments No 0 (1 standard drink = 0.6 oz pur e alcohol) PHQ-2 Answer Date Recorded PHQ Adult Total Score 13 01/22/2024 Hunger Vital Sign Answer Date Recorded Within the past 12 months, y ou worried that your food would run out before you got the money to buy more. Never true 01/22/20 24 Within the past 12 months, t he food you bought just didn't last and you didn't have money to get more. Never true 01/22/2024 Childcare Answer Date Recorded Do you feel overwhelmed with taking care of a child, family member or friend? No 01/22/2024 Does your family need help f inding childcare? (Household - for ages 0-17 years) Not on file 01/22/2024 Clothing Answer Date Recorded Have you been unable to get clothing when it was really needed? No 01/22/2024 Is your family able to get c lothes or diapers when needed? (Household - for ages 0-17 years) Not on file 01/22/2024 Personal Safety Answer Date Recorded Do you feel unsafe or have concerns for your saf ety? No 01/22/2024 Do you have concerns for you r family's safety? (Household - for ages 0-17 years) Not on file 01/22/2024 Utilities Answer Date Recorded Do you have trouble paying y our heating, water, or electric bill? No 01/22/2024 Is your family able to pay t he heat, water, or electric bill? (Household - for ages 0-17 years) Not on file 01/22/2024 Does your family have access to good internet? (Household - for ages 0-17 years) Not on file 01/22/2024 Employment Status Answer Date Recorded Are you unemployed or without regular income? No 01/22/2024 Does the household have a re gular source of income? (Household - for ages 0-17 years) Not on file 01/22/2024 Social Connections Answer Date Recorded How often do you feel lonely or isolated from those around you? Sometimes 01/22/2024 Financial Resource Strain Answer Date R ecorded Do you have any trouble payi ng for your medications, or do you think you might in the future? No 01/22/2024 Does your family have troubl e paying for medicine? (Household - for ages 0-17 years) Not on file 01/22/2024 Transportation Needs Answer Date Record ed READ ONLY Do you have troubl e getting a ride to medical visits or work? Never True 01/22/2024 Does your family have a hard time getting a ride to doctors visits? (Household - for ages 0-17 years) Not on file 01/22/2024 Has lack of transportation k ept you from medical appointments, meetings, work, or from getting things needed for daily living? Check all that apply. (Adult - for ages 18 years and over) Not on file 01/22/2024 Do you (or your family) have trouble finding or paying for a ride (transportation)? (Household - for ages 0-17 years) Not on file 01/22/2024 Housing Stability Answer Date Recorded Do you currently live in a s helter or have no steady place to sleep at night? No 01/22/2024 READ ONLY Do you think you a re at risk of becoming homeless? No 01/22/2024 Does your family worry about paying for your home or becoming homeless? (Household - for ages 0-17 years) Not on file 0 01/22/2024 Are you homeless or worried that you might be in the future? (Adult - for ages 18 years and over) Not on file Are you (or your family) reilly eless or worried that you might be in the future? (Household - for ages 0-17 years) Not on file Food Insecurity Answer Date Recorded Do you need food for this week? No 01/22/2024 Are you able to get enough f ood for your family? (Household - for ages 0-17 years) Not on file 01/22/2024 Does your family need food t his week? (Household - for ages 0-17 years) Not on file 01/22/2024 Do you always have enough fo od for your family? (Household - for ages 0-17 years) Not on file 01/22/2024 Sex and Gender Information Value Date Recorded [...] as of this encounter Progress Notes * Rd Moore MD - 02/29/2024 10:34 AM EDT OUTPATIENT PSYCHIATRY RETURN VISIT DIVISION OF PSYCHIATRY [address] [address] Name: Charleen Mathis : 1970 Date and Time Patient was Seen: 02/29/2024 at 10:34 AM Patient location: HOME. I was not in a hospital or clinic location. After connecting through [employer], patient was verified with two unique identifiers. Patient (or authorized legal ambulatory service representative) was then informed that this was a Telemedicine visit and being conducted confidentially over secure lines. Methods to assure confidentiality were taken. Patient acknowledged consent and understanding of privacy and security of the Telemedicine visit. The patient agreed to participate. Start Time: 1030 Stop Time: 1045 Total direct knvr-rg-affa time: 15 minutes CC: Follow-up Charleen Mathis is a 54 year old person with a history of COPD, HTN, GERD, MDD, JESSIE, PTSD who presents for an appointment. She is disabled. She has 2 kids. INTERVAL HISTORY: Charleen reports that she isn't doing well. She is depressed and tearful. She notes that she has been in pain. She notes that her sister's cancer prognosis isn't good. She notes that she she is sleepinga lot now. She notes that there isn't much to do during the day. She notes that she is still only eating once per day. Pt reports good adherence with medication and denies side effects. Pt denies SI. No manic symptoms, psychotic symptoms, AH, VH or HI elicited. [place]-SUICIDE SEVERITY RATING SCALE Frequent Screener Ask questions that are bold and underlined Since Last Contact (Renny with an X) YES NO Have you actually had thoughts about killing yourself? x If YES, ask the following questions. If NO, go directly to the last question Have you been thinking about how you might do this? Have you had these thoughts and had some intention of acting on them? E.g. I thought about taking an overdose, but I never made a specific plan as to when where or how I would actually do it.and I would never go through with it. Have you started to work out or worked out the details of how to kill yourself? Do you intend to carry out this plan? As opposed to I have the thoughts, but I definitely will not do anything about them. Have you done anything, started to do anything, or prepared to do anything to end your life? Examples: Collected pills, obtained a gun, gave away valuables, wrote a will or suicide note, took out pills but didn't swallow any, held a gun but changed your mind or it was grabbed from your hand,went to the roof but didn't jump; or actually took pills, tried to shoot yourself, cut yourself, tried to hang yourself, etc. x Low Risk Complete or review crisis plan with patient Discuss risk/protective factors and reasons for living Moderate Risk Complete or review crisis plan with patient Discuss risk/protective factors and reasons for living Discuss removal of means High Risk Maintain 1 to 1 monitoring until assessment is completed Evaluate for higher level of care (Inpatient or PHP) Consultation with Emergency Services as appropriate If patient not admitted: Complete or review crisis plan with patient Discuss risk/protective factors and reasons for living Advise removal of means Consider family or collateral contact to promote safety Schedule follow up care consistent with assessment ALLERGIES Review of patient's allergies indicates: Allergen Reactions Codeine Nausea/vomiting Tramadol Hives Morphine Itching, Other (Please comment) and Nausea/vomiting Naloxone Nausea/vomiting Other reaction(s): rash/hives Vicodin Hp [Hydrocodone-Acetaminophen] Nausea/vomiting Hives and nausea CURRENT MEDICATIONS: Current Outpatient Medications Medication Sig Dispense Refill Qlgadqbkxcu-Gmpanxhhs-Itoamp 200-62.5-25 MCG/ACT Aerosol Powder Breath Activated (Trelegy Ellipta) Inhale 1 Puff by mouth daily. 60 Blister Dosing Unit 11 Meclizine HCl 25 MG Oral Tablet (Antivert) Take 1-2 Tablets by mouth 2 times a day as needed for Nausea. 60 Tablet 1 Ventolin HFA 108 (90 Base) MCG/ACT Inhalation Aerosol Solution Inhale 2 Puffs by mouth every 4 hours as needed for Shortness of Breath or Wheezing. 18 g 2 Azithromycin 250 MG Oral Tablet (Zithromax) Take 2 tabs by mouth on the first day, then 1 tab dailyon days two through five (Patient not taking: Reported on 08/03/2023) 6 Tablet 0 Comirnaty 30 MCG/0.3ML Intramuscular Suspension Aprepitant 80 MG Oral Capsule (Emend) Take 1 capsule by mouth one time daily on Day 1 of vomiting 10 Capsule 2 Lisinopril 40 MG Oral Tablet Take 1 Tablet by mouth in the morning. 90 Tablet 2 hydrALAZINE HCl 50 MG Oral Tablet (Apresoline) Take 1 Tablet by mouth 2 times a day. 180 Tablet 2 Ondansetron 4 MG Oral Tablet Disintegrating (Zofran) 1 tab(s) By Mouth three times daily for 5 daysas needed for nausea or vomiting. 15 Tablet 0 Sucralfate 1 GM/10ML Oral Suspension (Carafate) Take 10 mL by mouth in the morning and 10 mL at noon and 10 mL in the evening and 10 mL before bedtime. 420 mL 5 Aprepitant 40 MG Oral Capsule 1 capsule once daily on Day 2 and Day 3 of vomiting 10 Capsule 4 Diclofenac Sodium 1 % External Gel (Voltaren) Apply 2 grams to area of pain 4 times per day as needed for pain 100 g 5 Prochlorperazine Maleate 10 MG Oral Tablet (Compazine) Take 1 Tablet by mouth at bedtime. 90 Tablet2 Promethazine HCl 25 MG Oral Tablet (Phenergan) Take 1 Tablet by mouth every 6 hours as needed for Nausea. or vomiting 12 Tablet 0 Mirtazapine 30 MG Oral Tablet (Remeron) Take 0.5 Tablets by mouth at bedtime for 7 days, THEN 1 Tablet at bedtime. 34 Tablet 0 Famotidine 20 MG Oral Tablet (Pepcid) Take 1 Tablet by mouth in the morning and 1 Tablet before bedtime. 180 Tablet 3 Pantoprazole Sodium 40 MG Oral Tablet Delayed Release (Protonix) Take 1 tablet by mouth daily 90 Tablet 3 [START ON 03/06/2024] oxyCODONE-Acetaminophen 10-325 MG Oral Tablet (Percocet) Take 1 Tablet by mouth every 6 hours as needed for Pain, Moderate or Pain, Severe for 7 days, THEN 1 Tablet every 8 hoursas needed for Pain, Moderate or Pain, Severe for 7 days, THEN 0.5 Tablets every 8 hours as needed for Pain, Moderate or Pain, Severe for 8 days, THEN 0.5 Tablets 2 times a day as needed for Pain, Moderate or Pain, Severe for 8 days, THEN 0.5 Tablets daily as needed for Pain, Moderate or Pain, Severe for up to 8 days. Do not start before March 06, 2024. 73 Tablet 0 No current facility-administered medications for this visit. RECENT LABS/IMAGING: No results found for this or any previous visit (from the past 672 hour(s)). VITALS There were no vitals filed for this visit. Wt Readings from Last 3 Encounters: 08/16/23 81.6 kg (180 lb) 06/18/23 91.9 kg (202 lb 11.2 oz) 03/02/23 87.5 kg (193 lb) There is no height or weight on file to calculate BMI. CURRENT MEDICATIONS: Current Outpatient Medications Medication Sig Dispense Refill Cljvczjusxe-Vmbldhhde-Cjktsa 200-62.5-25 MCG/ACT Aerosol Powder Breath Activated (Trelegy Ellipta) Inhale 1 Puff by mouth daily. 60 Blister Dosing Unit 11 Meclizine HCl 25 MG Oral Tablet (Antivert) Take 1-2 Tablets by mouth 2 times a day as needed for Nausea. 60 Tablet 1 Ventolin HFA 108 (90 Base) MCG/ACT Inhalation Aerosol Solution Inhale 2 Puffs by mouth every 4 hours as needed for Shortness of Breath or Wheezing. 18 g 2 Azithromycin 250 MG Oral Tablet (Zithromax) Take 2 tabs by mouth on the first day, then 1 tab dailyon days two through five (Patient not taking: Reported on 08/03/2023) 6 Tablet 0 Comirnaty 30 MCG/0.3ML Intramuscular Suspension Aprepitant 80 MG Oral Capsule (Emend) Take 1 capsule by mouth one time daily on Day 1 of vomiting 10 Capsule 2 Lisinopril 40 MG Oral Tablet Take 1 Tablet by mouth in the morning. 90 Tablet 2 hydrALAZINE HCl 50 MG Oral Tablet (Apresoline) Take 1 Tablet by mouth 2 times a day. 180 Tablet 2 Ondansetron 4 MG Oral Tablet Disintegrating (Zofran) 1 tab(s) By Mouth three times daily for 5 daysas needed for nausea or vomiting. 15 Tablet 0 Sucralfate 1 GM/10ML Oral Suspension (Carafate) Take 10 mL by mouth in the morning and 10 mL at noon and 10 mL in the evening and 10 mL before bedtime. 420 mL 5 Aprepitant 40 MG Oral Capsule 1 capsule once daily on Day 2 and Day 3 of vomiting 10 Capsule 4 Diclofenac Sodium 1 % External Gel (Voltaren) Apply 2 grams to area of pain 4 times per day as needed for pain 100 g 5 Prochlorperazine Maleate 10 MG Oral Tablet (Compazine) Take 1 Tablet by mouth at bedtime. 90 Tablet2 Promethazine HCl 25 MG Oral Tablet (Phenergan) Take 1 Tablet by mouth every 6 hours as needed for Nausea. or vomiting 12 Tablet 0 Mirtazapine 30 MG Oral Tablet (Remeron) Take 0.5 Tablets by mouth at bedtime for 7 days, THEN 1 Tablet at bedtime. 34 Tablet 0 Famotidine 20 MG Oral Tablet (Pepcid) Take 1 Tablet by mouth in the morning and 1 Tablet before bedtime. 180 Tablet 3 Pantoprazole Sodium 40 MG Oral Tablet Delayed Release (Protonix) Take 1 tablet by mouth daily 90 Tablet 3 [START ON 03/06/2024] oxyCODONE-Acetaminophen 10-325 MG Oral Tablet (Percocet) Take 1 Tablet by mouth every 6 hours as needed for Pain, Moderate or Pain, Severe for 7 days, THEN 1 Tablet every 8 hoursas needed for Pain, Moderate or Pain, Severe for 7 days, THEN 0.5 Tablets every 8 hours as needed for Pain, Moderate or Pain, Severe for 8 days, THEN 0.5 Tablets 2 times a day as needed for Pain, Moderate or Pain, Severe for 8 days, THEN 0.5 Tablets daily as needed for Pain, Moderate or Pain, Severe for up to 8 days. Do not start before March 06, 2024. 73 Tablet 0 No current facility-administered medications for this visit. FAMILY HISTORY: Family History Problem Relation Name Age of Onset Diabetes Father Type II Heart Disorder Father DC No Past Hx Mother Neurological Disorder Son ADD Neurological Disorder Daughter Epilepsy PAST MEDICAL HISTORY: Past Medical History: Diagnosis Date Cellulitis and abscess of trunk Chronic airway obstruction, not elsewhere classified Chronic hepatitis C without mention of hepatic coma Closed fracture of unspecified part of tibia 2010 Fractured lower leg Dermatophytosis of foot Generalized anxiety disorder HTN, goal below 130/80 12/06/2014 Lumbago Narcotic dependence (HCC) 12/06/2014 Nausea with vomiting 12/06/2014 Other psoriasis SUMMARY OF/CHANGES TO PAST PSYCHIATRIC, MEDICAL, FAMILY, OR SOCIAL HISTORY: See interval history MEDICAL REVIEW OF SYSTEMS: Constitutional: (-) fever chills sweats or weight loss Eyes: (-) negative, no amaurosis fugax, pain, blurred vision, or redness Cardiovascular: (-) negative: no chest pain, dyspnea, syncope, or palpitations Pulmonary: (-) negative: no cough, wheezing, or shortness of breath Abdominal/GI: (-) negative: no pain, heartburn, dysphagia, bleeding, change in bowel habits, nauseaor vomiting Musculoskeletal: (-) negative: no pain Endocrine: (-) negative: no weight change, heat or cold intolerance, polyuria Skin: (-) negative: no rash or new or changing moles Neurology: (-) negative: no focal neurologic defect MENTAL STATUS EVALUATION: Speech: normal, rate, tone and volume Mood: depressed Associations: intact Thought Process: goal directed and logical Abstract Reasoning: intact Thought Content: denies suicidal ideations, homicidal ideations, auditory hallucinations, visual hallucinations, delusions, impulsivity to act out or preoccupation with violence Orientation: alert and oriented to person, place, time and situation Attention span/concentration as evidenced by: ability to sustain attention to examiner - intact Insight: good Judgment: good ASSESSMENT AND PLAN: Diagnosis: The primary encounter diagnosis was JESSIE (generalized anxiety disorder). Diagnoses of Major depressive disorder, recurrent episode, moderate (HCC) and PTSD (post-traumatic stress disorder) were also pertinent to this visit. Charleen Mathis is a 54 year old person with a history of COPD, HTN, GERD, MDD, JESSIE, PTSD who presents for an appointment. She is disabled. She has 2 kids. She meets criteria for the listed diagnoses. Remeron 30mg qhs Xanax 1mg TID PRN PDMP reviewed Treatment options and alternatives reviewed with patient who agrees with the above plan. Information about current medications was provided to the patient including reasons why medications are being used. Patient understood the risks, benefits, side-effects, and potential complications associated with changes in medications being proposed (both medications being started, and medications being discontinued or having dose changed). Patient is making an informed medical decision to follow the recommendations outlined in this note. Directed pt to call with any questions or concerns, worsening symptoms and/or ask for earlier appointment. Greater than 50% of the time was spent counseling or coordinating the care of the patient Risk assessment was performed. This is a patient being treated for chronic mental health conditionsand/or substance use disorder as characterized above; at the time of this visit, there was no indication that this patient was either a risk to self, others, or gravely disabled by symptoms of a mental illness or substance use disorder. At the time of this evaluation, pt did not appear to be an acute risk to self or others, there were enough protective factors in place, and it was deemed safe andappropriate to continue with treatment on an outpatient basis with return to clinic in the timeframe described above. We reviewed previous crisis plan should he/she experience worsening of symptoms before next follow-up appointment, including being aware of what resources to use according to the urgency and severityof symptoms. Charleen Delfina was able to verbalize understanding of the steps necessary to obtain help between appointments should be needed, from requesting a phone call, to requesting an appointment sooner, including reaching clinic after hours, accessing our system, and accessing emergency mental health and medical services, either at a local emergency department or by activating mobile crisis teams and EMS. Time Spent on Visit: 30 minutes Billing code: [id number] Rd Moore MD Psychiatrist, [facility] 02/29/2024 documented in this encounter Plan of Treatment Upcoming Encounters Date Type Department Care Team (Late st Contact Info) Description 03/06/2024 10:30 AM EDT Office Visit Orthopaedics [facility] [address] [address] Warren Sahu, [address] [address] 03/27/2024 10:00 AM EDT Telemedicine Psychology [place] [address] [place] [address] Franci Barclay LPC [address], [place] [id number] 04/04/2024 10:30 AM EDT [facility] [address] [place] [address] Rd Moore MD [address] [place] [address] Scheduled Procedures Name Priority Associated Diagnoses Date/Ti me ESOPHAGOGASTRODUODENOSCOPY ( EGD), FLEXIBLE, TRANSORAL, DIAGNOSTIC Recall Shahid's esophagus with esophagitis ESOPHAGOGASTRODUODENOSCOPY ( EGD), FLEXIBLE, TRANSORAL, DIAGNOSTIC Epigastric pain Health Maintenance Due Date Last Done Comments DISCUSS TOBACCO CESSATION (REFER TO SMARTSET #4256) 1970 HIV Screening 1985 Albumin/Creatinine Ratio 01/29/1988 Alpha-1 Antitrypsin 01/29/1988 Hepatitis B Vaccine (1 of 3 - 19+ 3-dose series) 1989 Pap Smear 1991 Cervical Cancer Screening 01/29/2000 HPV/Co-Test 01/29/2000 Mammogram 2010 Cologuard 2015 Colonoscopy 2015 Colorectal Cancer Screening 2015 Fecal Occult Blood Test 2015 Sigmoidoscopy 2015 *COPD SEVERITY VERIFIED BY PFT 12/26/2015 *CXR OR CT FOR COPD EVER 02/24/2024 Influenza Vaccine (FLU shot) (#1) 2024 03/31/2023, 04/11/2022, 04/25/2021, Additional history exists O2 ASSESSMENT COMPLETED IN PAST YEAR FOR COPD 08/16/2024 08/16/2023 GFR 10/10/2024 10/11/2023, 02/2 12/2023, 09/12/2023, Additional history exists Depression Monitoring 01/21/2025 01/22/2024 Diabetes Screening 02/12/2026 02/12/2023, 0 01/09/2023, 12/26/2022, Additional history exists Lipid Panel 09/15/2027 09/15/2022, 05/14, 06/27/2018, Additional history exists DTaP,Tdap,and Td Vaccines (2 - Td or Tdap) 09/21/2032 09/21/2022 Zoster Vaccines Completed 04/11/2022, 01/07/2021 *BASELINE EKG FOR HTN Completed 02/12/2023 , 01/09/2023, 12/21/2022, Additional history exists Pneumococcal Vaccine: Pediatrics (0 to 5 Years) and At-Risk Patients (6 to 64 Years) Completed 03/31/2023, 07/04/2022 COVID-19 Vaccine Completed 07/24/2023, 10/2022, 04/24/2022 HPV (Gardasil) Vaccine Aged Out No lo nger eligible based on patient's age to complete this topic MENINGOCOCCAL (MENACTRA/MENVEO) Aged Out No longer eligible based on patient's age to complete this topic documented as of this encounter Medical Devices Not on filedocumented as of this encounter Visit Diagnoses Diagnosis JESSIE (generalized anxiety disorder)- Primary Generalized anxiety disorder Major depressive disorder, recurrent episode, moderate (HCC) Major depressive disorder, recurrent episode, moderate PTSD (post-traumatic stress disorder) Posttraumatic stress disorder documented in this encounter Advance Directives * Full Code (Latest Code Status on File) Date Activated Date Inactivated Comments 12/21/2022 2:17 PM 12/22/2022 1:45 PM This order r eflects the patients wishes and were consensually agreed upon. Question Answer Comments Discussion of Advance Directives occurred with: Patient Does the patient have a Living Will? No Does the patient have Health Care Power of Attor demi? No * Full Code Date Activated Date Inactivated Comments 09/14/2022 7:32 PM 09/15/2022 8:07 PM This order ref lects the patients wishes and were consensually agreed upon. Question Answer Comments Discussion of Advance Directives occurred with: Patient * Full Code Date Activated Date Inactivated Comments 05/22/2017 10:15 AM 05/25/2017 5:28 PM This orde r reflects the patients wishes and were consensually agreed upon. Question Answer Comments Discussion of Advance Directives occurred with: Not Discussed * Full Code Date Activated Date Inactivated Comments 12/05/2014 5:33 PM 12/06/2014 6:55 PM This order r eflects the patients wishes and were consensually agreed upon. Question Answer Comments Discussion of Advance Directives occurred with: Patient Care Teams Vp Legal Affairs Relationship Specialty Start Date End Date Eliza Mcfarland MD [address] [place] [address] PCP - General Family Medicine 12/09/21 documented as of this encounter
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
--- OUTSIDE RECORDS SUMMARY | 2024-03-27 15:52 | External Medical Summary | Summary of Care ---
Author Name Unknown Organization [facility] Address [address] [place] [address] Phone [phone] Care Team Providers Care Preschool Associate Teacher Name Role Phone Eliza Mcfarland MD Primary Care Prov ider Encounter Details Date Type Department Care Team (Late st Contact Info) Description 02/05/[address] [address] Eliza Mcfarland MD [address] [place] [address] [phone] Allergies Active Allergy Reactions Criticality Noted Date Comments Codeine Nausea/vomiting High 03/20/2014 Morphine Itching,Other (Pleas e comment),Nausea/vomit ing 05/24/2017 Naloxone Nausea/vomiting 04/07/2022 Other reaction(s): rash/hives Tramadol Hives High 03/20/2014 Hydrocodone-Acetamino phen Nausea/vomiting 12/09/2021 Hives and nausea documented as of this encounter (statuses as of 02/05/2024) Medications Medication Sig Dispensed Refills Start Date [...] Nausea. or vomiting 12 Tablet 01/10/2024 Active Mirtazapine 30 MG Oral Tablet (Remeron) Take 0.5 Tablets by mouth at bedtime for 7 days, THEN 1 Tablet at bedtime. 34 Tablet 01/31/2024 03/09/20 24 Active ALPRAZolam 1 MG Oral Tablet (xaNAX) Take 1 Tablet by mouth 3 times a day as needed for Anxiety. 90 Tablet 1 01/31/2024 Active Famotidine 20 MG Oral Tablet (Pepcid) [...] Pain, Moderate or Pain, Severe. 90 Tablet 02/05/2024 Active oxyCODONE-Acetamino phen 10-325 MG Oral Tablet (Percocet)Indicatio ns:Lumbar degenerative disc disease,Chronic pain syndrome Take 1 Tablet by mouth every 6 hours as needed for Pain, Moderate or Pain, Severe. 120 Tablet 01/10/2024 02/05/20 24 Discontinu ed(Refill) documented as of this encounter (statuses as of 02/05/2024) Active Problems Problem Noted Date Diagnosed Date Major depressive disorder, recurrent episode, mo derate 01/22/2024 PTSD (post-traumatic stress disorder) 01/22/2024 Gastro-esophageal reflux disease without esophag itis 09/18/2023 Chronic obstructive pulmonary disease 09/18/2023 Dependence on nocturnal oxygen therapy 4 Food insecurity 08/20/2023 Overview: Per [facility] Protocol Current smoker 06/19/2023 Inflammatory liver [...] as of this encounter (statuses as of 02/05/2024) Resolved Problems Problem Noted Date Diagnosed Date [...] as of this encounter (statuses as of 02/05/2024) Immunizations Name Administration Dates Next Due COVID-19, MRNA-LNP, 23-24, P F, 30 MCG/0.3 mL, 12 YRS AND ABOVE, IM (PFIZER-Comirnaty) 06/15/2023 COVID-19, MRNA-LNP, 23-24, P F, 50 MCG/0.5 mL, 12 YRS AND ABOVE, IM (MODERNA-Spikevax) 07/24/2023 Covid-19, Mrna, Lnp-s, Pf, B ivalent, 50 Mcg, IM, 12 yrs and above (Moderna) 04/24/2022 Pneumococcal Conjugate Vacci ne, 20-valent ([id number]) 03/31/2023,07/04/2022 Seasonal Influenza, Quadriva lent Hd (Fluzone [...] AM EDT Telemedicine Psychiatry Valeri Drew [address] [place] [address] Rd Moore MD [address] [place], [place] [phone] 03/06/2024 10:30 AM EDT Office Visit Orthopaedics [facility] [address] [facility] [place] [address] Warren Sahu, [address] [facility] [place] [address] 03/27/2024 10:00 AM EDT Telemedicine Psychology [facility] [place] [address] [place] [address] Franci Barclay LPC [address] [place], [place] [phone] Scheduled Procedures Name Priority Associated Diagnoses Date/Ti me ESOPHAGOGASTRODUODENOSCOPY ( EGD), FLEXIBLE, TRANSORAL, DIAGNOSTIC Recall Shahid's esophagus with esophagitis ESOPHAGOGASTRODUODENOSCOPY ( EGD), FLEXIBLE, TRANSORAL, DIAGNOSTIC Epigastric pain Health Maintenance Due Date Last Done Comments DISCUSS TOBACCO CESSATION (REFER TO SMARTSET #4925) 1970 HIV Screening 1985 Albumin/Creatinine Ratio 01/29/1988 [...] as of this encounter Visit Diagnoses Diagnosis Lumbar degenerative disc disease Degeneration of lumbar or lumbosacral intervertebral disc Chronic pain syndrome documented in this encounter Advance Directives * [...] Advance Directives occurred with: Patient Care Teams Preschool Associate Teacher Relationship Specialty Start Date End Date Eliza Mcfarland MD [address] [place] [address] PCP - General Family Medicine 12/09/21 documented as of this encounter
--- OUTSIDE RECORDS SUMMARY | 2024-03-27 15:52 | External Medical Summary | Summary of Care ---
Author Name Unknown Organization [facility] Address [address] [place] [address] Phone [phone] Care Team Providers Care Forest Nursery Worker Name Role Phone Guilherme Mcfarland MD Primary Care Prov ider Reason for Visit * Reason Comments Medication Refill Encounter Details Date Type Department Care Team ([facility] Contact Info) Description 02/01/[address] [phone] Guilherme Mcfarland MD [address] [place] [id number] Allergies Active Allergy Reactions Criticality Noted Date Comments Codeine Nausea/vomiting High 03/20/2014 Morphine Itching,Other (Pleas e comment),Nausea/vomit ing 05/24/2017 Naloxone Nausea/vomiting 04/07/2022 Other reaction(s): rash/hives Tramadol Hives High 03/20/2014 Hydrocodone-Acetamino phen Nausea/vomiting 12/09/2021 Hives and nausea documented as of this encounter (statuses as of 02/01/2024) Medications Medication Sig Dispensed Refills Start Date [...] Nausea. or vomiting 12 Tablet 01/10/2024 Active oxyCODONE-Acetamino phen 10-325 MG Oral Tablet (Percocet)Indicatio ns:Lumbar degenerative disc disease,Chronic pain syndrome Take 1 Tablet by mouth every 6 hours as needed for Pain, Moderate or Pain, Severe. 120 Tablet 01/10/2024 Active Mirtazapine 30 MG Oral [...] before bedtime. 180 Tablet 3 02/01/2024 Active Famotidine 20 MG Oral Tablet (Pepcid) Take 1 Tablet by mouth in the morning and 1 Tablet before bedtime. 180 Tablet 3 01/23/2023 02/01/20 24 Discontinu ed(Refill) Pantoprazole Sodium 40 MG Oral Tablet Delayed Release (Protonix) 1 tab(s) By Mouth Daily,x30 Day(s) 30 Tablet 10/11/2023 02/01/20 24 Discontinu ed(Refill) documented as of this encounter (statuses as of 02/01/2024) Active Problems Problem Noted Date Diagnosed Date Major depressive disorder, recurrent episode, mo derate 01/22/2024 PTSD (post-traumatic stress disorder) 01/22/2024 Gastro-esophageal reflux disease without esophag itis 09/18/2023 Chronic obstructive pulmonary disease 09/18/2023 Dependence on nocturnal oxygen therapy Food insecurity 08/20/2023 Overview: Per [facility] Protocol Current smoker 06/19/2023 Inflammatory liver [...] as of this encounter (statuses as of 02/01/2024) Resolved Problems Problem Noted Date Diagnosed Date Resolved Date Prediabetes 12/26/2022 01/25/2023 Acute renal failure 12/21/2022 12/27/19 Sepsis 09/14/2022 12/26/2022 GEORGINA (acute kidney injury) [...] as of this encounter (statuses as of 02/01/2024) Immunizations Name Administration Dates Next Due COVID-19, MRNA-LNP, 23-24, P F, 30 MCG/0.3 mL, 12 YRS AND ABOVE, IM (PFIZER-Comirnaty) 06/15/2023 COVID-19, MRNA-LNP, 23-24, P F, 50 MCG/0.5 mL, 12 YRS AND ABOVE, IM (MODERNA-Spikevax) 07/24/2023 Covid-19, Mrna, Lnp-s, Pf, B ivalent, 50 Mcg, IM, 12 yrs and above (Moderna) 04/24/2022 Pneumococcal Conjugate Vacci ne, 20-valent ([id number]) 03/31/2023,07/04/2022 Seasonal Influenza, Quadriva lent Hd (Fluzone [...] encounter Miscellaneous Notes * Telephone Encounter - Guilherme Mcfarland MD - 02/01/2024 11:12 AM EDTSigned Prescriptions: Disp Refills Famotidine 20 MG Oral Tablet (Pepcid) 180 Ta*3 Sig: Take 1 Tablet by mouth in the morning and 1 Tablet before bedtime. Authorizing Provider: GUILHERME MCFARLAND * Telephone Encounter - Harika Olivas LPN - 02/01/2024 10:08 AM EDTPending Prescriptions: Disp Refills Famotidine 20 MG Oral Tablet (Pepcid) 180 Ta*3 Sig: Take 1 Tablet by mouth in the morning and 1 Tablet before bedtime. * Telephone Encounter - Harika Olivas LPN - 02/01/2024 10:08 AM EDT Pending Prescriptions: Disp Refills Famotidine 20 MG Oral Tablet (Pepcid) 180 Ta*3 Sig: Take 1 Tablet by mouth in the morning and 1 Tablet before bedtime. Last Visit: 02/06/2023 (in office), 09/06/2022 (telemedicine) Next Visit: Visit date not found Last date the medication was ordered: 01/23/2023 Patient Active Problem List Diagnosis Chronic airway obstruction, not elsewhere classified Lumbago Other psoriasis Dermatophytosis of foot HTN, goal below 140/90 Lumbar degenerative disc disease Migraine Alkalosis, metabolic Chronic back pain Hypertensive urgency Recurrent generalized abdominal pain Gastroesophageal reflux disease Abdominal pain JESSIE (generalized anxiety disorder) Acute hyponatremia Intractable nausea and vomiting History of appendectomy COPD, severe (HCC) Cyclic vomiting syndrome Intractable vomiting Chronic insomnia History of hepatitis C Current smoker Inflammatory liver disease Food insecurity Gastro-esophageal reflux disease without esophagitis Chronic obstructive pulmonary disease (HCC) Dependence on nocturnal oxygen therapy Major depressive disorder, recurrent episode, moderate (HCC) PTSD (post-traumatic stress disorder) Labs: Lab Results Component Value Date/Time CREATININE [...] (CALCULATED) - [facility] 129 03/20/2014 10:15 AM LDL CHOLESTEROL-OUTSIDE LAB 82 06/27/2018 06:58 AM Lab Results Component Value Date/Time ALT - [facility] 17 02/12/2023 07:59 PM ALT - [facility] 11 05/23/2017 04:30 AM ALT-OUTSIDE LAB 18 11/08/2022 11:22 AM Hemoglobin AIC Results: Lab Results Component Value Date/Time HEMOGLOBIN A1C - [facility] 6.2 (H) 06/08/2022 10:57 AM documented in this encounter Plan of Treatment Upcoming Encounters Date Type Department Care Team (Late st Contact Info) Description 02/29/2024 10:30 AM EDT Telemedicine Psychiatry Valeri Drew [address] [place] [phone] [address] Moore MD [address] [facility] [place] [address] 03/06/2024 10:30 AM EDT Office Visit Orthopaedics [facility] [address] [place] [address] Warren Sahu, [address] [place] [address] 03/27/2024 10:00 AM EDT Telemedicine Psychology Neptali Sousa, [place] [address] [place] [address] Franci Barclay, COMMUNITY THEATER ACTOR [address] [place] [address] Scheduled Procedures Name Priority Associated Diagnoses Date/Ti me ESOPHAGOGASTRODUODENOSCOPY ( EGD), FLEXIBLE, TRANSORAL, DIAGNOSTIC Recall Shahid's esophagus with esophagitis ESOPHAGOGASTRODUODENOSCOPY ( EGD), FLEXIBLE, TRANSORAL, DIAGNOSTIC Epigastric pain Health Maintenance Due Date Last Done Comments DISCUSS TOBACCO CESSATION (REFER TO SMARTSET #3563) 1970 HIV Screening 1985 Albumin/Creatinine Ratio 01/29/1988 [...] filedocumented as of this encounter Advance Directives * Full Code [...] Advance Directives occurred with: Patient Care Teams Forest Nursery Worker Relationship Specialty Start Date End Date Guilherme Mcfarland MD [address] [place] [address] PCP - General Family Medicine 12/09/21 documented as of this encounter
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
--- OUTSIDE RECORDS SUMMARY | 2024-03-27 15:52 | External Medical Summary | Summary of Care ---
Author Name Unknown Organization [facility] Address [address] [place] [address] Phone [phone] Care Team Providers Care Crester Name Role Phone Guilherme Mcfarland MD Primary Care Prov ider Reason for Visit * Reason Comments Medication Refill Encounter Details Date Type Department Care Team ([facility] Contact Info) Description 02/01/[address] [address] Guilherme Mcfarland MD [address] [place] [address] Allergies Active Allergy Reactions Criticality Noted Date [...] for Anxiety. 90 Tablet 1 01/31/2024 Active Pantoprazole Sodium 40 MG Oral Tablet Delayed Release (Protonix) Take 1 tablet by mouth daily 90 Tablet 3 02/01/2024 Active Pantoprazole Sodium 40 [...] oxygen therapy Food insecurity 08/20/2023 Overview: Per [facility] Protocol Current smoker 06/19/2023 Inflammatory liver [...] (Moderna) 04/24/2022 Pneumococcal Conjugate Vacci ne, 20-valent ([id number]) 03/31/2023,07/04/2022 Seasonal Influenza, Quadriva lent Hd (Fluzone [...] 18 years and over) Not on file 06/11/202 4 Are you (or your family) reilly eless [...] Encounter - Guilherme Mcfarland MD - 02/01/2024 11:13 AM EDTSigned Prescriptions: Disp Refills Pantoprazole Sodium 40 MG Oral Tablet Shantel*90 Tab*3 Si tab(s) By Mouth Daily,x30 Day(s) Authorizing Provider: GUILHERME MCFARLAND * Telephone Encounter - Harika Olivas LPN - 02/01/2024 10:48 AM EDTPending Prescriptions: Disp Refills Pantoprazole Sodium 40 MG Oral Tablet Shantel*30 Tab*0 Si tab(s) By Mouth Daily,x30 Day(s) * Telephone Encounter - Harika Olivas LPN - 02/01/2024 10:47 AM EDT Pending Prescriptions: Disp Refills Pantoprazole Sodium 40 MG Oral Tablet Del*30 Tab*0 Si tab(s) By Mouth Daily,x30 Day(s) Last Visit: 02/06/2023 (in office), 09/06/2022 (telemedicine) Next Visit: Visit date not found Last date the medication was ordered: 10/11/2023 Patient Active Problem List Diagnosis Chronic airway [...] Telemedicine Psychiatry Valeri Drew [address] [place] [address] [address] Moore MD [address] [facility] [place] [id number] 03/06/2024 10:30 AM EDT Office Visit Orthopaedics [facility] [address] [place] [address] Warren Sahu DO [address] [place] [address] 03/27/2024 10:00 AM EDT Telemedicine Psychology Neptali Sousa, [place] [address] [place] [address] Franci Barclay, TICKER MAINTAINER [address] [place] [address] Scheduled Procedures Name Priority Associated Diagnoses Date/Ti me ESOPHAGOGASTRODUODENOSCOPY ( EGD), FLEXIBLE, TRANSORAL, DIAGNOSTIC Recall Shahid's esophagus with esophagitis ESOPHAGOGASTRODUODENOSCOPY ( EGD), FLEXIBLE, TRANSORAL, DIAGNOSTIC Epigastric pain Health Maintenance Due Date Last Done Comments DISCUSS TOBACCO CESSATION (REFER TO SMARTSET #2923) 1970 HIV Screening 1985 Albumin/Creatinine Ratio 01/29/1988 [...] Advance Directives occurred with: Patient Care Teams Crester Relationship Specialty Start Date End Date Guilherme Mcfarland MD [address] [place] [address] PCP - General Family Medicine 12/09/21 documented as of this encounter
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
--- OUTSIDE RECORDS SUMMARY | 2024-03-27 15:52 | External Medical Summary | Summary of Care ---
Author Name Unknown Organization [facility] Address [address] [place] [address] Phone [phone] Care Team Providers Care Napping Machine Operator Name Role Phone Eliza Mcfarland MD Primary Care Prov ider Reason for Visit * Reason Onset Date Comments Appointment 01/21/2024 Encounter Details Date Type Department Care Team (Late st Contact Info) Description 01/21/2024 Telephone [facility] [place] [address] [place] [address] Marion Phipps, [facility] [address] [place] [address] Appointment Allergies Active Allergy Reactions Criticality Noted Date Comments Codeine Nausea/vomiting High 03/20/2014 Morphine Itching,Other (Pleas e comment),Nausea/vomit ing 05/24/2017 Naloxone Nausea/vomiting 04/07/2022 Other reaction(s): rash/hives Tramadol Hives High 03/20/2014 Hydrocodone-Acetamino phen Nausea/vomiting 12/09/2021 Hives and nausea documented as of this encounter (statuses as of 01/21/2024) Medications Medication Sig Dispensed Refills Start Date [...] as of this encounter (statuses as of 01/21/2024) Active Problems Problem Noted Date Diagnosed Date Gastro-esophageal reflux disease without esophag itis 09/18/2023 Chronic obstructive pulmonary disease 09/18/2023 Dependence on nocturnal oxygen therapy Food insecurity 08/20/2023 Overview: Per [facility] Protocol Current smoker 06/19/2023 Inflammatory [...] as of this encounter (statuses as of 01/21/2024) Resolved Problems Problem Noted Date Diagnosed Date [...] as of this encounter (statuses as of 01/21/2024) Immunizations Name Administration Dates Next Due COVID-19, MRNA-LNP, 23-24, P F, 30 MCG/0.3 mL, 12 YRS AND ABOVE, IM (PFIZER-Comirnaty) 06/15/2023 COVID-19, MRNA-LNP, 23-24, P F, 50 MCG/0.5 mL, 12 YRS AND ABOVE, IM (MODERNA-Spikevax) 07/24/2023 Covid-19, Mrna, Lnp-s, Pf, B ivalent, 50 Mcg, IM, 12 yrs and above (Moderna) 04/24/2022 Pneumococcal Conjugate Vacci ne, 20-valent ([id number]) 03/31/2023,07/04/2022 Seasonal Influenza, Quadriva lent Hd (Fluzone [...] Date Recorded PHQ Adult Total Score 13 01/21/2024 Hunger Vital Sign Answer Date Recorded Within the past 12 months, y ou worried that your food would run out before you got the money to buy more. Sometimes true Within the past 12 months, t he food you bought just didn't last and you didn't have money to get more. Sometimes true 05/2024 Sex and Gender Information Value Date Recorded [...] encounter Miscellaneous Notes * Telephone Encounter - Gloria Trinidad OSA - 01/21/2024 3:28 PM EDT Referral Details after Behavioral Health Intake: Referral: Internal Psych Resource: Per Marion Phipps CHANNEL PROCESS SUPERVISOR recommendation for therapy and Psychiatry.Patient scheduled with Provider Aram 07/31@9 Provider Ning 03/27@10 documented in this encounter Plan of Treatment Upcoming Encounters Date Type Department Care Team (Late st Contact Info) Description 03/06/2024 10:30 AM EDT Office Visit Orthopaedics [facility] [address] [place] [address] Warren Sahu, [address] [place] [address] 03/27/2024 10:00 AM EDT Telemedicine Psychology Valeri Drew [address] [place] [address] Franci Barclay, [facility] [address] [place] [address] 07/31/2024 9:00 AM EST Telemedicine Psychiatry, [facility] [address] [facility], [place] [address] Giulia Chiu CRNP [address] [place] [phone] Scheduled Procedures Name Priority Associated Diagnoses Date/Ti me ESOPHAGOGASTRODUODENOSCOPY ( EGD), FLEXIBLE, TRANSORAL, DIAGNOSTIC Recall Shahid's esophagus with esophagitis ESOPHAGOGASTRODUODENOSCOPY ( EGD), FLEXIBLE, TRANSORAL, DIAGNOSTIC Epigastric pain Health Maintenance Due Date Last Done Comments DISCUSS TOBACCO CESSATION (REFER TO SMARTSET #[id number]) 1970 HIV Screening 1985 Albumin/Creatinine Ratio 01/29/1988 [...] 09/14, 09/12/2023, Additional history exists Depression Monitoring 01/20/2025 01/21/2024 Diabetes Screening 02/12/2026 02/12/2023, 0 01/09/2023, 12/26/2022, [...] Advance Directives occurred with: Patient Care Teams Napping Machine Operator Relationship Specialty Start Date End Date Eliza Mcfarland MD [address] [place] [address] PCP - General Family Medicine 12/09/21 documented as of this encounter
--- OUTSIDE RECORDS SUMMARY | 2024-03-27 15:52 | External Medical Summary | Summary of Care ---
Author Name Unknown Organization [facility] Address [address] [place] [address] Phone [phone] Care Team Providers Care Medicare Sales Executive Name Role Phone Eliza Mcfarland MD Primary Care Prov ider Reason for Visit * Reason Onset Date Comments Referral 01/17/2024 Encounter Details Date Type Department Care Team (Late st Contact Info) Description 01/17/2024 Telephone [facility] [address] [place] [address] [facility] Referral Allergies Active Allergy Reactions Criticality Noted Date Comments Codeine Nausea/vomiting High 03/20/2014 Morphine Itching,Other (Pleas e comment),Nausea/vomit ing 05/24/2017 Naloxone Nausea/vomiting 04/07/2022 Other reaction(s): rash/hives Tramadol Hives High 03/20/2014 Hydrocodone-Acetamino phen Nausea/vomiting 12/09/2021 Hives and nausea documented as of this encounter (statuses as of 01/17/2024) Medications Medication Sig Dispensed Refills Start Date [...] as of this encounter (statuses as of 01/17/2024) Active Problems Problem Noted Date Diagnosed Date Gastro-esophageal reflux disease without esophag itis 09/18/2023 Chronic obstructive pulmonary disease 09/18/2023 Dependence on nocturnal oxygen therapy Food insecurity 08/20/2023 Overview: Per [facility] Protocol Current smoker 06/19/2023 Inflammatory [...] as of this encounter (statuses as of 01/17/2024) Resolved Problems Problem Noted Date Diagnosed Date [...] as of this encounter (statuses as of 01/17/2024) Immunizations Name Administration Dates Next Due COVID-19, MRNA-LNP, 23-24, P F, 30 MCG/0.3 mL, 12 YRS AND ABOVE, IM (PFIZER-Comirnaty) 06/15/2023 COVID-19, MRNA-LNP, 23-24, P F, 50 MCG/0.5 mL, 12 YRS AND ABOVE, IM (MODERNA-Spikevax) 07/24/2023 Covid-19, Mrna, Lnp-s, Pf, B ivalent, 50 Mcg, IM, 12 yrs and above (Moderna) 04/24/2022 Pneumococcal Conjugate Vacci ne, 20-valent ([id number]) 03/31/2023,07/04/2022 Seasonal Influenza, Quadriva lent Hd (Fluzone [...] encounter Miscellaneous Notes * Telephone Encounter - Kiersten Schmidt BS - 01/17/2024 9:12 AM EDT Epic 178 referral Reason for the referral Severe depression (HCC) [F32.2] - Primary Member is having a lot of life/family stressors and could benefit from a BHCM to help her as medications do not seem to be working does have a follow up with psychology. Outcome: Attempted to call [phone] the mailbox was full and couldn't leave a VM for the member WIll make a 2nd attempt call to the member on 01/18/2024 as this is marked URGENT documented in this encounter Plan of Treatment Upcoming Encounters Date Type Department Care Team (Late st Contact Info) Description 01/21/2024 3:00 PM EDT Telemedicine Psychology Valeri Drew [address] [place] [phone] Marion Phipps, [facility] [address] [place] [address] 03/06/2024 10:30 AM EDT Office Visit Orthopaedics [facility] [address] [facility] [place] [address] Warren Sahu, [address] [facility] [place] [address] Scheduled Procedures Name Priority Associated Diagnoses Date/Ti me ESOPHAGOGASTRODUODENOSCOPY ( EGD), FLEXIBLE, TRANSORAL, DIAGNOSTIC Recall Shahid's esophagus with esophagitis ESOPHAGOGASTRODUODENOSCOPY ( EGD), FLEXIBLE, TRANSORAL, DIAGNOSTIC Epigastric pain Health Maintenance Due Date Last Done Comments DISCUSS TOBACCO CESSATION (REFER TO SMARTSET #1607) 1970 HIV Screening 1985 Albumin/Creatinine Ratio 01/29/1988 [...] Advance Directives occurred with: Patient Care Teams Medicare Sales Executive Relationship Specialty Start Date End Date Eliza Mcfarland MD [address] [place] [address] PCP - General Family Medicine 12/09/21 documented as of this encounter
--- OUTSIDE RECORDS SUMMARY | 2024-03-27 15:52 | External Medical Summary | Summary of Care ---
Author Name Unknown Organization [facility] Address [address] [place] [address] Phone [phone] Care Team Providers Care Reconnaissance Crewmember Name Role Phone Eliza Mcfarland MD Primary Care Prov ider Encounter Details Date Type Department Care Team (Late st Contact Info) Description 02/05/[address] [address] Eliza Mcfarland MD [address] [place] [id number] Allergies Active Allergy Reactions Criticality Noted Date Comments Codeine Nausea/vomiting High 03/20/2014 Morphine Itching,Other (Pleas e comment),Nausea/vomit ing 05/24/2017 Naloxone Nausea/vomiting 04/07/2022 Other reaction(s): rash/hives Tramadol Hives High 03/20/2014 Hydrocodone-Acetamino phen Nausea/vomiting 12/09/2021 Hives and nausea documented as of this encounter (statuses as of 02/07/2024) Medications Medication Sig Dispensed Refills Start Date [...] as of this encounter (statuses as of 02/07/2024) Active Problems Problem Noted Date Diagnosed Date Major depressive disorder, recurrent episode, mo derate 01/22/2024 PTSD (post-traumatic stress disorder) 01/22/2024 Gastro-esophageal reflux disease without esophag itis 09/18/2023 Chronic obstructive pulmonary disease 09/18/2023 Dependence on nocturnal oxygen therapy Food insecurity 08/20/2023 Overview: Per [facility] Protocol Current smoker 06/19/2023 Inflammatory liver [...] as of this encounter (statuses as of 02/07/2024) Resolved Problems Problem Noted Date Diagnosed Date [...] as of this encounter (statuses as of 02/07/2024) Immunizations Name Administration Dates Next Due COVID-19, MRNA-LNP, 23-24, P F, 30 MCG/0.3 mL, 12 YRS AND ABOVE, IM (PFIZER-Comirnaty) 06/15/2023 COVID-19, MRNA-LNP, 23-24, P F, 50 MCG/0.5 mL, 12 YRS AND ABOVE, IM (MODERNA-Spikevax) 07/24/2023 Covid-19, Mrna, Lnp-s, Pf, B ivalent, 50 Mcg, IM, 12 yrs and above (Moderna) 04/24/2022 Pneumococcal Conjugate Vacci ne, 20-valent ([id number]) 03/31/2023,07/04/2022 Seasonal Influenza, Quadriva lent Hd (Fluzone [...] Care Team (Late st Contact Info) Description 02/13/2024 6:40 PM EDT Telemedicine [address] [address] Eliza Mcfarland MD [address] [place] [address] 02/29/2024 10:30 AM EDT Telemedicine Psychiatry [facility] [address] [place] [address] [address] Moore MD [address] [place] [address] 03/06/2024 10:30 AM EDT Office Visit Orthopaedics [facility] [address] [place] [address] Warren Sahu DO [address] [place] [address] 03/27/2024 10:00 AM EDT Telemedicine Psychology [facility] [place] [address] [place] [address] Franci Barclay LPC [address], [place] [id number] Scheduled Procedures Name Priority Associated Diagnoses Date/Ti me ESOPHAGOGASTRODUODENOSCOPY ( EGD), FLEXIBLE, TRANSORAL, DIAGNOSTIC Recall Shahid's esophagus with esophagitis ESOPHAGOGASTRODUODENOSCOPY ( EGD), FLEXIBLE, TRANSORAL, DIAGNOSTIC Epigastric pain Health Maintenance Due Date Last Done Comments DISCUSS TOBACCO CESSATION (REFER TO SMARTSET #1934) 1970 HIV Screening 1985 Albumin/Creatinine Ratio 01/29/1988 [...] Advance Directives occurred with: Patient Care Teams Reconnaissance Crewmember Relationship Specialty Start Date End Date Eliza Mcfarland MD [address] [place] [address] PCP - General Family Medicine 12/09/21 documented as of this encounter
--- OUTSIDE RECORDS SUMMARY | 2024-03-27 15:52 | External Medical Summary | Summary of Care ---
Author Name Unknown Organization [facility] Address [address] [place] [address] Phone [phone] Care Team Providers Care Regional Truck Driver Name Role Phone Eliza Mcfarland MD Primary Care Prov ider Reason for Referral * Evaluate & Treat - Unlimited Visits (Within 10 days (routine)) - Pending Review Specialty Diagnoses / Procedures Referred By Contac t Referred To Contact Pain Management / Pain Medicine Diagnoses Chronic pain syndrome Lumbar degenerative disc disease Other secondary osteoarthritis of both knees Eliza Mcfarland MD [address] [place] [address] Referral ID Status Reason Start Date Expiration Date Visits Requested Visits Authorized [id number] Pending Review Specialty Services Required 02/13/[phone] Question Answer Referral Priority Within 10 days (routine) Where should this appointment be scheduled? [facility] Reason for referral? Non Interventional Pain Management What is the preferred location to have this test performed? Non [facility] - [facility], [address] [facility], [address], [place] [address] Comments Patient Name: Charleen Mathis Date of : 1970 Department Phone Number: MRI or CT (if unable to have a MRI) is recommended if any of the following apply: 1. Patient has neck or back pain with radiation to extremities. A previous MRI will be accepted if symptoms unchanged since prior MRI. 2. Spinal surgery since last MRI. If yes, order a MRI with and without contrast. 3. Hx or ongoing cancer treatment. Patient will need spine x-ray (Ap/Lat) for axial neck or back pain if not done previously. Fax No. [facility] [phone] or contact front window cashier [phone] Fax No. [facility] [phone] or contact front window cashier [phone] Fax No. [facility] [phone] or contact front window cashier [phone] Encounter Details Date Type Department Care Team (Late st Contact Info) Description 02/13/2024 6:40 PM EDT Telemedicine [address] [address] Eliza Mcfarland MD [address] [place] [address] Chronic pain syndrome*; Lumbar degenerative disc disease; Other secondary osteoarthritis of both knees Allergies Active Allergy Reactions Criticality Noted Date Comments Codeine Nausea/vomiting High 03/20/2014 Morphine Itching,Other (Pleas e comment),Nausea/vomit ing 05/24/2017 Naloxone Nausea/vomiting 04/07/2022 Other reaction(s): rash/hives Tramadol Hives High 03/20/2014 Hydrocodone-Acetamino phen Nausea/vomiting 12/09/2021 Hives and nausea documented as of this encounter (statuses as of 02/21/2024) Medications Medication Sig Dispensed Refills Start Date [...] bedtime. 34 Tablet 01/31/2024 03/09/20 24 Active Famotidine 20 MG Oral Tablet (Pepcid) [...] 2024. 73 Tablet 03/06/2024 04/13/20 24 Active ALPRAZolam 1 MG Oral Tablet (xaNAX) Take 1 Tablet by mouth 3 times a day as needed for Anxiety. 90 Tablet 1 01/31/2024 02/13/20 24 Discontinu ed(End of Procedure) oxyCODONE-Acetamino phen 10-325 MG Oral Tablet (Percocet)Indicatio ns:Lumbar degenerative disc disease,Chronic pain syndrome Take 1 Tablet by mouth every 6 hours as needed for Pain, Moderate or Pain, Severe. 90 Tablet 02/05/2024 02/13/20 24 Discontinu ed(Refill) documented as of this encounter (statuses as of 02/21/2024) Active Problems Problem Noted Date Diagnosed Date [...] as of this encounter (statuses as of 02/21/2024) Resolved Problems Problem Noted Date Diagnosed Date [...] as of this encounter (statuses as of 02/21/2024) Immunizations Name Administration Dates Next Due COVID-19, MRNA-LNP, 23-24, P F, 30 MCG/0.3 mL, 12 YRS AND ABOVE, IM (PFIZER-Comirnaty) 06/15/2023 COVID-19, MRNA-LNP, 23-24, P F, 50 MCG/0.5 mL, 12 YRS AND ABOVE, IM (MODERNA-Spikevax) 07/24/2023 Covid-19, Mrna, Lnp-s, Pf, B ivalent, 50 Mcg, IM, 12 yrs and above (Moderna) 04/24/2022 Pneumococcal Conjugate Vacci ne, 20-valent ([id number]) 03/31/2023,07/04/2022 Seasonal Influenza, Quadriva lent Hd (Fluzone [...] No 01/22/2024 Does the household have a [facility] source of income? (Household - for ages [...] Progress Notes * Eliza Mcfarland MD - 02/13/2024 6:46 PM EDT Images from the original note were not included. Portions of this record may have been dictated using voice recognition software. Variations in spelling and in vocabulary are possible and unintentional. Some errors may not be recognized or corrected at time of dictation. History of Present Illness Charleen Mathis is a 54 year old female that presents for No chief complaint on file. Established patient well known to me. Visit today for discussion on medication use agreement. Patient unfortunately and unintentionally violated disagreement with Xanax. This was prescribed by Psychiatry. Patient has been grieving the loss of several important people in her life. Most recently 1 ofher best friends. Patient has been on therapy with me since 2021 for chronic arthritis of bilateralknees and lumbar degenerative disc disease. Patient tearful and upset today. Patient states "I guess I am going to have to buy am off the street". Physical Exam Physical Exam Vitals and nursing [...] normal. Behavior: Behavior normal. Assessment and Plan Chronic pain syndrome Weaning schedule as below. Referral to pain management as well. Advise patient to consider external pain management closer to her home. Reiterated the importance of understanding the medication use agreement is between you andthe prescribing doctor. It is the patient's responsibility to notify or refuse additional controlled substances from other providers. Will plan to wean patient over the next several weeks. - PAIN MEDICINE REFERRAL OP Lumbar degenerative disc disease - PAIN MEDICINE REFERRAL OP Other secondary osteoarthritis of both knees - PAIN MEDICINE REFERRAL OP Medication Orders Placed This Encounter Medications oxyCODONE-Acetaminophen 10-325 MG Oral Tablet (Percocet) oxyCODONE-Acetaminophen 10-325 MG Oral Tablet (Percocet) (Future) 1 Tablet, Q6H PRN Starting Citlali 03/06/2024, For 7 days, THEN 1 Tablet, Q8H PRN Starting Citlali 03/13/2024,For 7 days, THEN 0.5 Tablets, Q8H PRN Starting Citlali 03/20/2024, For 8 days, THEN 0.5 Tablets, BID PRN Starting Sun03/28/2024, For 8 days, THEN 0.5 Tablets, DAILY PRN Starting 04/05/2024, For 8 days OralStart: 4Dispense: 73 TabletRefills: 0 ordered [facility] Address: [address] [facility] [address], [place] [address] [facility] Address: [address], [place] [address] Wrap-Up Follow Up: Return in about 3 weeks (around 03/05/2024). Telemedicine: Patient location: HOME. I was in a hospital or clinic location. After connecting through televideo,patient was verified with two unique identifiers. Patient (or authorized legal district representative) was then informed that this was [...] [place] [address] [address] Moore MD [address] [facility] [place] [address] 03/06/2024 10:30 AM EDT Office Visit Orthopaed[facility] [address] [facility] [address] Warren Sahu DO [address] [facility] [address] 03/27/2024 10:00 AM EDT Telemedicine Psychology [facility], [place] [address] [place] [address] [place] Franci N, [employer] [address] [place], [place] [id number] Scheduled Procedures Name Priority Associated Diagnoses Date/Ti me ESOPHAGOGASTRODUODENOSCOPY ( EGD), FLEXIBLE, TRANSORAL, DIAGNOSTIC Recall Shahid's esophagus with esophagitis ESOPHAGOGASTRODUODENOSCOPY ( EGD), FLEXIBLE, TRANSORAL, DIAGNOSTIC Epigastric pain Scheduled Referrals Name Type Priority Associated Diagnoses Orde r Schedule PAIN MEDICINE REFERRAL OP Referral Within 10 days (routine) Chronic pain syndrome Lumbar degenerative disc disease Other secondary osteoarthritis of both knees Ordered: 02/13/2024 Health Maintenance Due Date Last Done Comments DISCUSS TOBACCO CESSATION (REFER TO SMARTSET #0075) 1970 HIV Screening 1985 Albumin/Creatinine Ratio 01/29/1988 Alpha-1 Antitrypsin 01/29/1988 Hepatitis B Vaccine (1 of 3 - 19+ 3-dose series) 1989 Pap Smear 1991 Cervical Cancer Screening 01/29/2000 HPV/Co-Test 01/29/2000 Mammogram 2010 Cologuard 2015 Colonoscopy 2015 Colorectal Cancer Screening 2015 Fecal Occult Blood Test 2015 Sigmoidoscopy 2015 *COPD SEVERITY VERIFIED BY PFT 12/26/2015 Influenza Vaccine (FLU shot) (#1) 2024 03/31/2023, 04/11/2022, 04/25/2021, Additional history exists O2 ASSESSMENT COMPLETED IN PAST YEAR FOR COPD 08/16/2024 08/16/2023 GFR 10/10/2024 10/11/2023, 02/12/2023, 09/12/2023, Additional history exists Depression Monitoring 01/21/2025 01/22/2024 Diabetes Screening 02/12/2026 02/12/2023, 0 01/09/2023, 12/26/2022, Additional history exists Lipid Panel 09/15/2027 09/15/2022, 05/14, 06/27/2018, Additional history exists DTaP,Tdap,and Td Vaccines (2 - Td or Tdap) 09/21/2032 09/21/2022 Zoster Vaccines Completed 04/11/2022, 01/07/2021 Pneumococcal Vaccine: Pediatrics (0 to 5 Years) [...] this encounter Visit Diagnoses Diagnosis Chronic pain syndrome- Primary Lumbar degenerative disc disease Degeneration of lumbar or lumbosacral intervertebral disc Other secondary osteoarthritis of both knees documented in this encounter Advance Directives * [...] Advance Directives occurred with: Patient Care Teams Regional Truck Driver Relationship Specialty Start Date End Date Eliza Mcfarland MD [address] [place] [address] PCP - General Family Medicine 12/09/21 documented as of this encounter
--- OUTSIDE RECORDS SUMMARY | 2024-03-27 15:53 | External Medical Summary | Summary of Care ---
Author Name Unknown Organization [facility] Address [address] [place] [address] Phone [phone] Care Team Providers Care Manager Call Center Name Role Phone Guilherme Akins MD Primary Care Prov ider Reason for Referral * Medication Prior Authorization - Pending Review Specialty Diagnoses / Procedures Referred By Contac t Referred To Contact Diagnoses Lumbar degenerative disc disease Chronic pain syndrome Guilherme Akins MD [address] [place] [address] Referral ID Status Reason Start Date Expiration Date V isits Requested Visits Authorized [id number] Pending Review 999 999 Reason for Visit * Reason Comments Medication Refill Encounter Details Date Type Department Care Team (Late st Contact Info) Description 01/09/[address] [address] Guilherme Akins MD [address] [place] [phone] Lumbar degenerative disc disease; Chronic pain syndrome Allergies Active Allergy Reactions Criticality Noted Date Comments Codeine Nausea/vomiting High 03/20/2014 Morphine Itching,Other (Pleas e comment),Nausea/vomit ing 05/24/2017 Naloxone Nausea/vomiting 04/07/2022 Other reaction(s): rash/hives Tramadol Hives High 03/20/2014 Hydrocodone-Acetamino phen Nausea/vomiting 12/09/2021 Hives and nausea documented as of this encounter (statuses as of 01/11/2024) Medications Medication Sig Dispensed Refills Start Date [...] Additional Information Patient not taking.Reported on 08/03/2023 Eszopiclone 2 MG Oral Tablet (Lunesta) Take 1 Tablet by mouth at bedtime. for sleep 30 Tablet 2 06/18/2023 Active Additional Information Patient not taking.Reported on 12/12/2023 Comirnaty 30 MCG/0.3ML Intramuscular Suspension 06/15/2023 Active [...] at bedtime. 90 Tablet 2 12/12/2023 Active clonazePAM 1 MG Oral Tablet (KlonoPIN) Take 1 Tablet by mouth in the morning and 1 Tablet before bedtime. 60 Tablet 3 12/12/2023 Active Promethazine HCl 25 MG Oral Tablet (Phenergan) Take 1 Tablet by mouth every 6 hours as needed for Nausea. or vomiting 12 Tablet 01/10/2024 Active oxyCODONE-Acetamino phen 10-325 MG Oral Tablet (Percocet)Indicatio ns:Lumbar degenerative disc disease,Chronic pain syndrome Take 1 Tablet by mouth every 6 hours as needed for Pain, Moderate or Pain, Severe. 120 Tablet 01/10/2024 Active Promethazine HCl 25 MG Oral Tablet (Phenergan) Take 1 Tablet by mouth every 6 hours as needed for Nausea. or vomiting 12 Tablet 12/12/2023 01/09/20 24 Discontinu ed(Refill) oxyCODONE-Acetamino phen 10-325 MG Oral Tablet (Percocet)Indicatio ns:Lumbar degenerative disc disease,Chronic pain syndrome Take 1 Tablet by mouth every 6 hours as needed for Pain, Moderate or Pain, Severe. 120 Tablet 12/12/2023 01/09/20 24 Discontinu ed(Refill) documented as of this encounter (statuses as of 01/11/2024) Active Problems Problem Noted Date Diagnosed Date [...] as of this encounter (statuses as of 01/11/2024) Resolved Problems Problem Noted Date Diagnosed Date [...] as of this encounter (statuses as of 01/11/2024) Immunizations Name Administration Dates Next Due COVID-19, MRNA-LNP, 23-24, P F, 30 MCG/0.3 mL, 12 YRS AND ABOVE, IM (PFIZER-Comirnaty) 06/15/2023 COVID-19, MRNA-LNP, 23-24, P F, 50 MCG/0.5 mL, 12 YRS AND ABOVE, IM (MODERNA-Spikevax) 07/24/2023 Covid-19, Mrna, Lnp-s, Pf, B ivalent, 50 Mcg, IM, 12 yrs and above (Moderna) 04/24/2022 Pneumococcal Conjugate Vacci ne, 20-valent ([id number]) 03/31/2023,07/04/2022 Seasonal Influenza, Quadriva lent Hd (Fluzone [...] money to buy more. Often true 07/25/20 23 Within the past 12 months, t [...] encounter Miscellaneous Notes * Telephone Encounter - Jenni Guzman glass finisher - 01/11/2024 8:06 AM EDT [facility] calling to check status of request for additional info on the Oxycodone-APAP.Advised per prev notes patient pays out of pocket and provider aware no PA is needed Jenni Nielson Regulated Program Manager III [facility] ([facility]) 01/11/2024,8:07 AM * Telephone Encounter - Guilherme Akins MD - 01/10/2024 5:20 PM EDT Aware no PA needed * Telephone Encounter - Miranda Paez CPhT - 01/10/2024 3:42 PM EDT Patient calling into state she pays for her Rx oxyCODONE-Acetaminophen 10-325 MG out of pocket. Pt's pharmacy closes at 5:30 pm. Pt is requesting high priority for this to be advised. Thank you, Miranda Paez Upholstery Department Supervisor [employer] 01/10/2024, 3:43 PM * Telephone Encounter - Guilherme Akins MD - 01/10/2024 3:21 PM EDT Signed Prescriptions: Disp Refills Promethazine HCl 25 MG Oral Tablet (Phener*12 Tab*0 Sig: Take 1 Tablet by mouth every 6 hours as needed for Nausea. or vomiting Authorizing Provider: GUILHERME AKINS oxyCODONE-Acetaminophen 10-325 MG Oral Tab*120 Ta*0 Sig: Take 1 Tablet by mouth every 6 hours as needed for Pain, Moderate or Pain, Severe. Perla solis Provider: GUILHERME AKINS * Telephone Encounter - Guilherme Akins MD - 01/10/2024 3:21 PM EDT Signed Prescriptions: Disp Refills Promethazine HCl 25 MG Oral Tablet (Phener*12 Tab*0 Sig: Take 1 Tablet by mouth every 6 hours as needed for Nausea. or vomiting Authorizing Provider: GUILHERME AKINS oxyCODONE-Acetaminophen 10-325 MG Oral Tab*120 Ta*0 Sig: Take 1 Tablet by mouth every 6 hours as needed for Pain, Moderate or Pain, Severe. Perla solis Provider: GUILHERME AKINS * Telephone Encounter - Alma Edwards [facility] - 01/10/2024 12:48 PM EDTPending Prescriptions: Disp Refills Promethazine HCl 25 MG Oral Tablet (Phener*12 Tab*0 Sig: Take 1 Tablet by mouth every 6 hours as needed for Nausea. or vomiting oxyCODONE-Acetaminophen 10-325 MG Oral Tab*120 Ta*0 Sig: Take 1 Tablet by mouth every 6 hours as needed for Pain, Moderate or Pain, Severe. * Telephone Encounter - Alma Edwards [facility] - 01/10/2024 12:48 PM EDT Did you pend patient's preferred pharmacy and medication before forwarding?yes Pharmacy: [facility] Pending Prescriptions: Disp Refills Promethazine HCl 25 MG Oral Tablet (Phene*12 Tab*0 Sig: Take 1 Tablet by mouth every 6 hours as needed for Nausea. or vomiting oxyCODONE-Acetaminophen 10-325 MG Oral Ta*120 Ta*0 Sig: Take 1 Tablet by mouth every 6 hours as needed for Pain, Moderate or Pain, Severe. Last Visit: 06/18/2023 (in office), 12/12/2023 (telemedicine) Next Visit: Visit date not found If no future appointments scheduled, and last appointment is greater than a year ago, please schedule patient for a follow-up appointment Last date the medication was ordered: 12/12/23 Is this request for a controlled substance?No Urine Drug Screen: Results for orders placed or performed in visit on 06/08/22 TOXICOLOGY, URINE SCREEN W/ CONFIRMATION Result Value Amphetamines Screen, U Negative Benzodiazepines Screen, U Negative Cannabinoids Screen, U Positive (A) Cocaine Metabolite Screen, U Negative Fentanyl Screen, U Negative Hydrocodone Screen, U Negative Methadone Metabolite Screen, U Negative Morphine/Codeine Screen, U Negative Oxycodone Screen, U Negative Narrative Cutoff Concentrations: Drug Level Amphetamines [...] reflexed to confirmatory testing. Patient Phone Numbers [facility] [phone] Labs: Lab Results Component Value Date/Time CREAT 0.7 02/12/2023 07:59 PM CREAT 1.0 05/23/2017 04:30 AM POTASSIUM 4.0 02/12/2023 07:59 PM POTASSIUM 3.6 05/23/2017 04:30 AM TSH 3.33 02/12/2023 07:59 PM TSH 4.46 (H) 05/23/2017 04:30 AM LDLCALC 108 09/15/2022 05:55 AM LDLCALC 82 06/27/2018 06:58 AM LDLCALC 129 03/20/2014 10:15 AM ALT 17 02/12/2023 07:59 PM ALT 18 11/08/2022 11:22 AM ALT 11 05/23/2017 04:30 AM HGBA1C 6.2 (H) 06/08/2022 10:57 AM HGBA1C 5.7 05/06/2021 01:45 PM * Telephone Encounter - Juliette Patel RPh - 01/10/2024 11:57 AM EDT Pending Prescriptions: Disp Refills Promethazine HCl 25 MG Oral Tablet (Phener*12 Tab*0 Sig: Take 1 Tablet by mouth every 6 hours as needed for Nausea. or vomiting oxyCODONE-Acetaminophen 10-325 MG Oral Tab*120 Ta*0 Sig: Take 1 Tablet by mouth every 6 hours as needed for Pain, Moderate or Pain, Severe. * Telephone Encounter - Juliette Patel [facility] - 01/10/2024 11:57 AM EDT I have reviewed the patients controlled substance dispensing history in the Prescription Drug Monitoring Program in compliance with the [facility] regulations before prescribing a controlled substance. PDMP checked on 01/10/2024. Pending Prescriptions: Disp Refills Promethazine HCl 25 MG Oral Tablet (Phene*12 Tab*0 Sig: Take 1 Tablet by mouth every 6 hours as needed for Nausea. or vomiting oxyCODONE-Acetaminophen 10-325 MG Oral Ta*120 Ta*0 Sig: Take 1 Tablet by mouth every 6 hours as needed for Pain, Moderate or Pain, Severe. Last Visit: 06/18/2023 (in office), 12/12/2023 (telemedicine) Next Visit: Visit date not found Date medication was last filled: 12/14/23 Date medication is due for refill: 01/12/24 Pharmacy: [facility] Is this request for a controlled substance? Yes and Urine Drug Screen was completed Toxicology results: Results for orders placed or performed in visit on 06/08/22 TOXICOLOGY, URINE SCREEN W/ CONFIRMATION Result Value Amphetamines Screen, U Negative Benzodiazepines Screen, U Negative Cannabinoids Screen, U Positive (A) Cocaine Metabolite Screen, U Negative Fentanyl Screen, U Negative Hydrocodone Screen, U Negative Methadone Metabolite Screen, U Negative Morphine/Codeine Screen, U Negative Oxycodone Screen, U Negative Narrative Cutoff Concentrations: Drug Level Amphetamines [...] testing. Please approve if appropriate. Thank you, Juliette Patel PharmD Clinical Pharmacist [facility] Clinical Pharmacy Services ([facility]) 01/10/24 11:57 AM [phone] * Telephone Encounter - Juliette Patel [facility] - 01/10/2024 11:56 AM EDT [facility] is currently not authorized to approve refills for the pended medication(s) per refill protocol. Please approve if appropriate. Pending Prescriptions: Disp Refills Promethazine HCl 25 MG Oral Tablet (Phene*12 Tab*0 Sig: Take 1 Tablet by mouth every 6 hours as needed for Nausea. or vomiting Thank you, Juliette Patel PharmD Clinical Pharmacist [facility] Clinical Pharmacy Services ([facility]) 01/10/24 11:56 AM [phone] * Telephone Encounter - Sonja Nogueira OSA - 01/10/2024 9:53 AM EDT Pt calling in to check status of refill. States she will be out of medication on Sunday 6.2.24. Please advise. Thank you. * Telephone Encounter - Kian Cid - 01/09/2024 8:59 AM EDTPending Prescriptions: Disp Refills Promethazine HCl 25 MG Oral Tablet (Phener*12 Tab*0 Sig: Take 1 Tablet by mouth every 6 hours as needed for Nausea. or vomiting oxyCODONE-Acetaminophen 10-325 MG Oral Tab*120 Ta*0 Sig: Take 1 Tablet by mouth every 6 hours as needed for Pain, Moderate or Pain, Sev ere. documented in this encounter Plan of Treatment Upcoming Encounters Date Type Department Care Team (Late st Contact Info) Description 01/11/2024 11:20 AM EDT Office Visit Nutrition & Weight Management, [facility] [address] [address] Beverley Velasco PA-C [address] [address] 01/16/2024 5:00 PM EDT Telemedicine [facility] [address] [place] [address] Guilherme Akins MD [address] [place] [address] 02/12/2024 10:30 AM EDT Telemedicine Psychology [facility] [address] [place] [address] Fide [address], [facility] [address] [place] [address] 03/06/2024 10:30 AM EDT Office Visit Orthopaedics [facility] [address] [address] Warren Sahu, [address] [address] Scheduled Procedures Name Priority Associated Diagnoses Date/Ti me ESOPHAGOGASTRODUODENOSCOPY ( EGD), FLEXIBLE, TRANSORAL, DIAGNOSTIC Recall Shahid's esophagus with esophagitis ESOPHAGOGASTRODUODENOSCOPY ( EGD), FLEXIBLE, TRANSORAL, DIAGNOSTIC Epigastric pain Health Maintenance Due Date Last Done Comments DISCUSS TOBACCO CESSATION (REFER TO SMARTSET #1548) 1970 HIV Screening 1985 Albumin/Creatinine Ratio 01/29/1988 [...] Advance Directives occurred with: Patient Care Teams Manager Call Center Relationship Specialty Start Date End Date Guilherme Akins MD [address] [place] [address] PCP - General Family Medicine 12/09/21 documented as of this encounter
--- OUTSIDE RECORDS SUMMARY | 2024-03-27 15:53 | External Medical Summary | Summary of Care ---
Author Name Unknown Organization [facility] Address [address] [place] [address] Phone [phone] Care Team Providers Care Membership Secretary Name Role Phone Guilherme Akins MD Primary Care Prov ider Reason for Referral * Medication Prior Authorization - Pending Review Specialty Diagnoses / Procedures Referred By Contac t Referred To Contact Diagnoses Lumbar degenerative disc disease Chronic pain syndrome Guilherme Akins MD [address] [place] [address] Referral ID Status Reason Start Date Expiration Date V isits Requested Visits Authorized [id number] Pending Review 999 999 Reason for Visit * Reason Comments Medication Refill Encounter Details Date Type Department Care Team (Late st Contact Info) Description 01/09/[address] [address] Guilherme Akins MD [address] [place] [phone] Lumbar degenerative disc disease; Chronic pain syndrome Allergies Active Allergy Reactions Criticality Noted Date Comments Codeine Nausea/vomiting High 03/20/2014 Morphine Itching,Other (Pleas e comment),Nausea/vomit ing 05/24/2017 Naloxone Nausea/vomiting 04/07/2022 Other reaction(s): rash/hives Tramadol Hives High 03/20/2014 Hydrocodone-Acetamino phen Nausea/vomiting 12/09/2021 Hives and nausea documented as of this encounter (statuses as of 01/10/2024) Medications Medication Sig Dispensed Refills Start Date [...] as of this encounter (statuses as of 01/10/2024) Active Problems Problem Noted Date Diagnosed Date [...] as of this encounter (statuses as of 01/10/2024) Resolved Problems Problem Noted Date Diagnosed Date [...] as of this encounter (statuses as of 01/10/2024) Immunizations Name Administration Dates Next Due COVID-19, MRNA-LNP, 23-24, P F, 30 MCG/0.3 mL, 12 YRS AND ABOVE, IM (PFIZER-Comirnaty) 06/15/2023 COVID-19, MRNA-LNP, 23-24, P F, 50 MCG/0.5 mL, 12 YRS AND ABOVE, IM (MODERNA-Spikevax) 07/24/2023 Covid-19, Mrna, Lnp-s, Pf, B ivalent, 50 Mcg, IM, 12 yrs and above (Moderna) 04/24/2022 Pneumococcal Conjugate Vacci ne, 20-valent ([id number]) 03/31/2023,07/04/2022 Seasonal Influenza, Quadriva lent Hd (Fluzone [...] encounter Miscellaneous Notes * Telephone Encounter - Miranda Paez CPhT - 01/10/2024 3:42 PM EDT Patient calling into state she pays for her Rx oxyCODONE-Acetaminophen 10-325 MG out of pocket. Pt's pharmacy closes at 5:30 pm. Pt is requesting high priority for this to be advised. Thank you, Miranda Paez Cocoa Press Operator [facility] 01/10/2024, 3:43 PM * Telephone Encounter - [...] for Pain, Moderate or Pain, Severe. Perla solsi Provider: GUILHERME AKINS * Telephone Encounter - Alma Edwards CMA - 01/10/2024 12:48 PM EDTPending Prescriptions: Disp Refills Promethazine HCl 25 MG Oral Tablet (Phener*12 Tab*0 Sig: Take 1 Tablet by mouth every 6 hours as needed for Nausea. or vomiting oxyCODONE-Acetaminophen 10-325 MG Oral Tab*120 Ta*0 Sig: Take 1 Tablet by mouth every 6 hours as needed for Pain, Moderate or Pain, Severe. * Telephone Encounter - Alma Edwards CMA - 01/10/2024 12:48 PM EDT Did you pend patient's preferred pharmacy and medication before forwarding?yes Pharmacy: [facility] Pending Prescriptions: Disp Refills Promethazine HCl [...] to confirmatory testing. Patient Phone Numbers mobile [phone] Labs: Lab Results Component Value Date/Time CREAT [...] PM * Telephone Encounter - Juliette Patel [facility] - 01/10/2024 11:57 AM EDT Pending Prescriptions: Disp Refills Promethazine HCl 25 MG Oral Tablet (Phener*12 Tab*0 Sig: Take 1 Tablet by mouth every 6 hours as needed for Nausea. or vomiting oxyCODONE-Acetaminophen 10-325 MG Oral Tab*120 Ta*0 Sig: Take 1 Tablet by mouth every 6 hours as needed for Pain, Moderate or Pain, Severe. * Telephone Encounter - Juliette Patel RP - 01/10/2024 11:57 AM EDT I have reviewed the patients controlled substance dispensing history in the Prescription Drug Monitoring Program in compliance with the [facility] regulations before prescribing a controlled substance. [...] medication is due for refill: 01/12/24 [address]: [facility] Is this request for a controlled [...] Please approve if appropriate. Thank you, Juliette Patel, PharmD Clinical Pharmacist [facility] ([facility]) 01/10/24 11:57 AM [phone] * Telephone Encounter - Juliette Patel RPh - 01/10/2024 11:56 AM EDT [facility] is currently not authorized to approve refills for the pended medication(s) per refill protocol. Please approve if appropriate. Pending Prescriptions: Disp Refills Promethazine HCl 25 MG Oral Tablet (Phene*12 Tab*0 Sig: Take 1 Tablet by mouth every 6 hours as needed for Nausea. or vomiting Thank you, Juliette Patel, PharmD Clinical Pharmacist [facility] ([facility]) 01/10/24 11:56 AM [phone] * Telephone Encounter - Sonja Nogueira OSA - 01/10/2024 9:53 AM EDT Pt calling in to check status of refill. States she will be out of medication on Sunday.10.06. Please advise. Thank you. * Telephone Encounter - Kian Cid - 01/09/2024 8:59 AM EDTPending Prescriptions: Disp Refills Promethazine HCl 25 MG Oral Tablet (Phener*12 Tab*0 Sig: Take 1Tablet by mouth every 6 hours as needed for Nausea. or vomiting oxyCODONE-Acetaminophen 10-325 MG Oral Tab*120 Ta*0 Sig: Take 1 Tablet by mouth every 6 hours as needed for Pain, Moderate or Pain, Karine re. documented in this encounter Plan of Treatment Upcoming Encounters Date Type Department Care Team (Late st Contact Info) Description 01/11/2024 11:20 AM EDT Office Visit Nutrition & Weight Management, [facility] [address] [address] Beverley Velasco PA-C [address] [place] [address] 01/16/2024 5:00 [place] [address] Guilherme Akins MD [address] [place] [address] 02/12/2024 10:30 AM EDT Telemedicine Psychology Ne[address]ali Sousa, [place] [address] [place] [address] Fide [place], KERRICK KLEANER OPERATOR [address] [place] [address] 03/06/2024 10:30 AM EDT Office Visit Orthopaedics [facility] [address] [place] [address] Warren Sahu, [address] [place] [address] Scheduled Procedures Name Priority Associated Diagnoses Date/Ti me ESOPHAGOGASTRODUODENOSCOPY ( EGD), FLEXIBLE, TRANSORAL, DIAGNOSTIC Recall Shahid's esophagus with esophagitis ESOPHAGOGASTRODUODENOSCOPY ( EGD), FLEXIBLE, TRANSORAL, DIAGNOSTIC Epigastric pain Health Maintenance Due Date Last Done Comments DISCUSS TOBACCO CESSATION (REFER TO SMARTSET #8288) 1970 HIV Screening 1985 Albumin/Creatinine Ratio 01/29/1988 [...] Advance Directives occurred with: Patient Care Teams Membership Secretary Relationship Specialty Start Date End Date Guilherme Akins MD [address] [place] [address] PCP - General Family Medicine 12/09/21 documented as of this encounter
--- OUTSIDE RECORDS SUMMARY | 2024-03-27 15:53 | External Medical Summary | Summary of Care ---
Author Name Unknown Organization [facility] Address [address] [place] [address] Phone [phone] Care Team Providers Care Home Care Rn Name Role Phone Guilherme Akins MD Primary Care Prov ider Reason for Referral * Medication Prior Authorization - Pending Review Specialty Diagnoses / Procedures Referred By Contac t Referred To Contact Diagnoses Lumbar degenerative disc disease Chronic pain syndrome Guilherme Akins MD [address] [place] [address] Referral ID Status Reason Start Date Expiration Date V isits Requested Visits Authorized [id number] Pending Review 999 999 Reason for Visit * Reason Comments Medication Refill Encounter Details Date Type Department Care Team (Late st Contact Info) Description 01/09/[address] [address] Guilherme Akins MD [address] [place] [phone] Lumbar degenerative disc disease; Chronic pain syndrome [...] (Moderna) 04/24/2022 Pneumococcal Conjugate Vacci ne, 20-valent ([id number]) 03/31/2023,07/04/2022 Seasonal Influenza, Quadriva lent Hd (Fluzone [...] Miscellaneous Notes * Telephone Encounter - Guilherme Akins MD - 01/10/2024 5:20 PM EDT Aware no PA needed * Telephone Encounter - Miranda Paez CPhT - 01/10/2024 3:42 PM EDT Patient calling into state she pays for her Rx oxyCODONE-Acetaminophen 10-325 MG out of pocket. Pt's pharmacy closes at 5:30 pm. Pt is requesting high priority for this to be advised. Thank you, Miranda Paez Deck Scaler [employer] 01/10/2024, 3:43 PM * Telephone Encounter - [...] preferred pharmacy and medication before forwarding?yes Pharmacy: [facility] Pending Prescriptions: Disp Refills Promethazine HCl [...] reflexed to confirmatory testing. Patient Phone Numbers Labs: Lab Results Component Value Date/Time CREAT [...] Severe. * Telephone Encounter - Juliette Patel RPh - 01/10/2024 11:57 AM EDT I have reviewed the patients controlled substance dispensing history in the Prescription Drug Monitoring Program in compliance with the [facility] regulations before prescribing a controlled substance. [...] medication is due for refill: 01/12/24 Pharmacy: [facility] Is this request for a controlled [...] Pharmacist [facility] ([facility]) 01/10/24 11:57 AM [phone] * Telephone Encounter - Juliette Patel RPh - 01/10/2024 11:56 AM EDT [facility] is currently not authorized to approve refills for the pended medication(s) per refill protocol. Please approve if appropriate. Pending Prescriptions: Disp Refills Promethazine HCl 25 MG Oral Tablet (Phene*12 Tab*0 Sig: Take 1 Tablet by mouth every 6 hours as needed for Nausea. or vomiting Thank you, Juliette Patel, PharmD Clinical Pharmacist [facility] ([facility]) 01/10/24 11:56 AM [phone] * Telephone Encounter - Sonja Nogueira OSA [...] EDT Office Visit Nutrition & Weight Management, [address] [place] [address] Beverley Velasco PA-C [address] [place] [address] 01/16/2024 5:00 PM EDT Telemedicine [facility] [address] [place] [address] Guilherme Akins MD [address] [place] [address] 02/12/2024 10:30 AM EDT Telemedicine Psychology [facility], [place] [address] [place] [phone] F[address], TEST DRIVER [address] [place], [place] [id number] 03/06/2024 10:30 AM EDT Office Visit Orthopaedics [facility] [address] [facility] [place] [address] Warren Sahu, [address] [facility] [place] [address] Scheduled Procedures Name Priority Associated Diagnoses Date/Ti me ESOPHAGOGASTRODUODENOSCOPY ( EGD), FLEXIBLE, TRANSORAL, DIAGNOSTIC Recall Shahid's esophagus with esophagitis ESOPHAGOGASTRODUODENOSCOPY ( EGD), FLEXIBLE, TRANSORAL, DIAGNOSTIC Epigastric pain Health Maintenance Due Date Last Done Comments DISCUSS TOBACCO CESSATION (REFER TO SMARTSET #2063) 1970 HIV Screening 1985 Albumin/Creatinine Ratio 01/29/1988 [...] Advance Directives occurred with: Patient Care Teams Home Care Rn Relationship Specialty Start Date End Date Guilherme Akins MD [address] [place] [address] PCP - General Family Medicine 12/09/21 documented as of this encounter
--- OUTSIDE RECORDS SUMMARY | 2024-03-27 15:53 | External Medical Summary | Summary of Care ---
Author Name Unknown Organization [facility] Address [address] [place] [address] Phone [phone] Care Team Providers Care Hall Porter Name Role Phone Guilherme Mcfarland MD Primary Care Prov ider Reason for Referral * Medication Prior Authorization - Pending Review Specialty Diagnoses / Procedures Referred By Contac t Referred To Contact Diagnoses Lumbar degenerative disc disease Chronic pain syndrome Guilherme Mcfarland MD [address] [place] [address] Referral ID Status Reason Start Date Expiration Date V isits Requested Visits Authorized [id number] Pending Review 999 999 Reason for Visit * Reason Comments Medication Refill Encounter Details Date Type Department Care Team (Late st Contact Info) Description 01/09/[address] [address] Guilherme Mcfarland MD [address] [place] [id number] Lumbar degenerative disc disease; Chronic pain syndrome [...] (Moderna) 04/24/2022 Pneumococcal Conjugate Vacci ne, 20-valent ([id number]) 03/31/2023,07/04/2022 Seasonal Influenza, Quadriva lent Hd (Fluzone [...] Telephone Encounter - Guilherme Mcfarland MD - 01/10/2024 3:21 PM EDT Signed Prescriptions: Disp Refills Promethazine HCl 25 MG Oral Tablet (Phener*12 Tab*0 Sig: Take 1 Tablet by mouth every 6 hours as needed for Nausea. or vomiting Authorizing Provider: GUILHERME MCFARLAND oxyCODONE-Acetaminophen 10-325 MG Oral Tab*120 Ta*0 Sig: Take 1 Tablet by mouth every 6 hours as needed for Pain, Moderate or Pain, Severe. Auth orizing Provider: GUILHERME MCFARLAND * Telephone Encounter - Guilherme Mcfarland MD - 01/10/2024 3:21 PM EDT Signed Prescriptions: Disp Refills Promethazine HCl 25 MG Oral Tablet (Phener*12 Tab*0 Sig: Take 1 Tablet by mouth every 6 hours as needed for Nausea. or vomiting Authorizing Provider: GUILHERME MCFARLAND oxyCODONE-Acetaminophen 10-325 MG Oral Tab*120 Ta*0 Sig: Take 1 Tablet by mouth every 6 hours as needed for Pain, Moderate or Pain, Severe. Auth orizing Provider: GUILHERME MCFARLAND * Telephone Encounter - Alma Edwards CMA [...] preferred pharmacy and medication before forwarding?yes Pharmacy: [facility] Pending Prescriptions: Disp Refills Promethazine HCl [...] to confirmatory testing. Patient Phone Numbers mobile [phone] Labs: Lab Results Component Value Date/Time CREAT [...] PM * Telephone Encounter - Juliette Patel formerly [facility] - 01/10/2024 11:57 AM EDT Pending Prescriptions: Disp Refills Promethazine HCl 25 MG Oral Tablet (Phener*12 Tab*0 Sig: Take 1 Tablet by mouth every 6 hours as needed for Nausea. or vomiting oxyCODONE-Acetaminophen 10-325 MG Oral Tab*120 Ta*0 Sig: Take 1 Tablet by mouth every 6 hours as needed for Pain, Moderate or Pain, Severe. * Telephone Encounter - Juliette Patel formerly [facility] - 01/10/2024 11:57 AM EDT I have reviewed the patients controlled substance dispensing history in the Prescription Drug Monitoring Program in compliance with the [facility] regulations before prescribing a controlled substance. [...] medication is due for refill: 01/12/24 Pharmacy: [facility] Is this request for a controlled [...] Thank you, Juliette Patel PharmD Clinical Pharmacist Centralized Clinical Pharmacy Services ([facility]) 01/10/24 11:57 AM [phone] * Telephone Encounter - Juliette Patel RPh - 01/10/2024 11:56 AM EDT [facility] is currently not authorized to approve refills for the pended medication(s) per refill protocol. Please approve if appropriate. Pending Prescriptions: Disp Refills Promethazine HCl 25 MG Oral Tablet (Phene*12 Tab*0 Sig: Take 1 Tablet by mouth every 6 hours as needed for Nausea. or vomiting Thank you, Juliette Patel PharmD Clinical Pharmacist Centralized Clinical Pharmacy Services ([facility]) 01/10/24 11:56 AM [phone] * Telephone Encounter - Sonja Nogueira OSA - 01/10/2024 9:53 AM EDT Pt calling in to check status of refill. States she will be out of medication on Sunday 6.2.24. Please advise. Thank you. * Telephone Encounter - Palak Provider - 01/09/2024 8:59 AM EDTPending Prescriptions: Disp [...] EDT Office Visit Nutrition & Weight Management, [facility] [address] [place] [id number] Beverley Velasco PA-C [address] [facility] [place] [id number] 01/16/2024 5:00 PM EDT Telemedicine [facility] [address] [place] [address] Guilherme Mcfarland MD [address] [place] [address] 02/12/2024 10:30 AM EDT Telemedicine Psychology [place] [address] [place] [address] [place], [facility] [address] [place] [address] 03/06/2024 10:30 AM EDT Office Visit Orthopaedics [facility] [address] [address] [place], [address] [place] [address] Scheduled Procedures Name Priority Associated Diagnoses Date/Ti me ESOPHAGOGASTRODUODENOSCOPY ( EGD), FLEXIBLE, TRANSORAL, DIAGNOSTIC Recall Shahid's esophagus with esophagitis ESOPHAGOGASTRODUODENOSCOPY ( EGD), FLEXIBLE, TRANSORAL, DIAGNOSTIC Epigastric pain Health Maintenance Due Date Last Done Comments DISCUSS TOBACCO CESSATION (REFER TO SMARTSET #1170) 1970 HIV Screening 1985 Albumin/Creatinine Ratio 01/29/1988 [...] Advance Directives occurred with: Patient Care Teams Hall Porter Relationship Specialty Start Date End Date Guilherme Mcfarland MD [address] [place] [id number] PCP - General Family Medicine 12/09/21 documented as of this encounter
--- OUTSIDE RECORDS SUMMARY | 2024-03-27 15:53 | External Medical Summary | Summary of Care ---
Author Name Unknown Organization [facility] Address [address] [facility] [place] [address] Phone [phone] Care Team Providers Care Software Support Representative Name Role Phone Eliza Mcfarland MD Primary Care Prov ider Encounter Details Date Type Department Care Team (Latest Contact Info) Description 12/31/2023 3:45 PM EDT Telemedicine Orthopaedics [facility] [address] [place] [address] Miguel Pelayo PA-C [address] [place] [address] Primary osteoarthritis of left knee* Allergies Active Allergy Reactions Criticality Noted Date Comments Codeine Nausea/vomiting High 03/20/2014 Morphine Itching,Other (Pleas e comment),Nausea/vomit ing 05/24/2017 Naloxone Nausea/vomiting 04/07/2022 Other reaction(s): rash/hives Tramadol Hives High 03/20/2014 Hydrocodone-Acetamino phen Nausea/vomiting 12/09/2021 Hives and nausea documented as of this encounter (statuses as of 12/31/2023) Medications Medication Sig Dispensed Refills Start Date [...] for Nausea. or vomiting 12 Tablet 12/12/2023 Active oxyCODONE-Acetaminop hen 10-325 MG Oral Tablet (Percocet)Indication s:Lumbar degenerative disc disease,Chronic pain syndrome Take 1 Tablet by mouth every 6 hours as needed for Pain, Moderate or Pain, Severe. 120 Tablet 12/12/2023 Active clonazePAM 1 MG Oral Tablet (KlonoPIN) Take 1 Tablet by mouth in the morning and 1 Tablet before bedtime. 60 Tablet 3 12/12/2023 Active documented as of this encounter (statuses as of 12/31/2023) Active Problems Problem Noted Date Diagnosed Date Gastro-esophageal reflux disease without esophag itis 09/18/2023 Chronic obstructive pulmonary disease 09/18/2023 Dependence on nocturnal oxygen therapy 4 Food insecurity 08/20/2023 Overview: Per [facility] Protocol Current smoker 06/19/2023 Inflammatory [...] as of this encounter (statuses as of 12/31/2023) Resolved Problems Problem Noted Date Diagnosed Date [...] as of this encounter (statuses as of 12/31/2023) Immunizations Name Administration Dates Next Due COVID-19, MRNA-LNP, 23-24, P F, 30 MCG/0.3 mL, 12 YRS AND ABOVE, IM (PFIZER-Comirnaty) 06/15/2023 COVID-19, MRNA-LNP, 23-24, P F, 50 MCG/0.5 mL, 12 YRS AND ABOVE, IM (MODERNA-Spikevax) 07/24/2023 Covid-19, Mrna, Lnp-s, Pf, B ivalent, 50 Mcg, IM, 12 yrs and above (Moderna) 04/24/2022 Pneumococcal Conjugate Vacci ne, 20-valent ([id number]) 03/31/2023,07/04/2022 Seasonal Influenza, Quadriva lent Hd (Fluzone [...] as of this encounter Progress Notes * Miguel Pelayo PA-C - 12/31/2023 12:11 PM EDT After connecting to the patient via telephone, the patient was identified by name and date of . Patient was then informed that this was a telephone call only visit. The patient agreed to participate. Visit Disposition: Routine follow-up Total call duration was 3 minutes. Telephonic visit to discuss results of corticosteroid injection for right knee osteoarthritis. Patient states she experienced proximally 3 days relief. Continues have pain with ADLs elective activitywork duties. States she has not interested in any further injectables. She is open to having discussion with our surgical team to determine if she has a candidate for arthroplasty. I can facilitate accordingly. This chart was completed in part utilizing [employer] Speech Voice Recognition Software. Grammatical errors, random word insertions, prounoun errors, and incomplete sentences are an occasional consequence of this system due to software limitations, ambient noise, and hardware issues. Any formal questions or concerns about the content, text, or information contained within the body of this dictation should be directly addressed to the provider for clarification. documented in this encounter Plan of Treatment Upcoming Encounters Date Type Department Care Team (Late st Contact Info) Description 01/11/2024 11:20 AM EDT Office Visit Nutrition & Weight Management, [facility] [address] [place] [address] Beverley Velasco PA-C [address] [place] [address] 02/12/2024 10:30 AM EDT Telemedicine Psychology [place] [address] [place] [address] [place] [employer] [address] [place] [address] Scheduled Procedures Name Priority Associated Diagnoses Date/Ti me ESOPHAGOGASTRODUODENOSCOPY ( EGD), FLEXIBLE, TRANSORAL, DIAGNOSTIC Recall Shahid's esophagus with esophagitis ESOPHAGOGASTRODUODENOSCOPY ( EGD), FLEXIBLE, TRANSORAL, DIAGNOSTIC Epigastric pain Health Maintenance Due Date Last Done Comments DISCUSS TOBACCO CESSATION (REFER TO SMARTSET #[id number]) 1970 HIV Screening 1985 Albumin/Creatinine Ratio 01/29/1988 [...] as of this encounter Visit Diagnoses Diagnosis Primary osteoarthritis of left knee- Primary Primary localized osteoarthrosis, lower leg documented in this encounter Advance Directives * [...] Advance Directives occurred with: Patient Care Teams Software Support Representative Relationship Specialty Start Date End Date Eliza Mcfarland MD [address] [place] [address] PCP - General Family Medicine 12/09/21 documented as of this encounter
--- OUTSIDE RECORDS SUMMARY | 2024-03-27 15:54 | External Medical Summary | Summary of Care ---
Author Name Unknown Organization [facility] Address [address] [facility] [place] [address] Phone [phone] Care Team Providers Care Senior Engineering Team Leader Name Role Phone Eliza Mcfarland MD Primary Care Prov ider Encounter Details Date Type Department Care Team (Late st Contact Info) Description 11/12/2023 Patient Reported Data Patient Survey Ortho [facility] Allergies Active Allergy Reactions Criticality Noted Date Comments Codeine Nausea/vomiting High 03/20/2014 Naloxone Nausea/vomiting 04/07/2022 Other reaction(s): rash/hives Tramadol Hives High 03/20/2014 Hydrocodone-Acetaminoph en Nausea/vomiting 12/09/2021 Hives and nausea documented as of this encounter (statuses as of 11/12/2023) Medications Medication Sig Dispensed Refills Start Date [...] through five 6 Tablet 0 06/18/2023 Active Additional Information Patient not taking.Reported on 08/03/2023 Eszopiclone 2 MG Oral Tablet (Lunesta) Take 1 Tablet by mouth at bedtime. for sleep 30 Tablet 2 06/18/2023 Active Additional Information Patient taking differently:2 mg Oral HS, for sleep,Indications: as needed, Reported on 08/03/2023 Comirnaty 30 MCG/0.3ML Intramuscular Suspension 0 06/15/2023 Active Aprepitant 80 MG Oral Capsule (Emend) Take 1 capsule by mouth one time daily on Day 1 of vomiting 10 Capsule 2 09/18/2023 Active Prochlorperazine Maleate 10 MG Oral Tablet (Compazine) Take 1 Tablet by mouth every 6 hours as needed for Nausea. 30 Tablet 2 09/18/2023 Active Lisinopril 40 MG Oral Tablet Take 1 Tablet by mouth in the morning. 90 Tablet 2 09/18/2023 Active clonazePAM 1 MG Oral Tablet (KlonoPIN) Take 1 Tablet by mouth in the morning and 1 Tablet before bedtime. 60 Tablet 3 09/18/2023 Active hydrALAZINE HCl 50 MG Oral Tablet (Apresoline) Take 1 Tablet by mouth 2 times a day. 180 Tablet 2 09/24/2023 Active Ondansetron 4 MG Oral Tablet Disintegrating (Zofran) 1 tab(s) By Mouth three times daily for 5 days as needed for nausea or vomiting. 15 Tablet 0 10/07/2023 Active Pantoprazole Sodium 40 MG Oral Tablet Delayed Release (Protonix) 1 tab(s) By Mouth Daily,x30 Day(s) 30 Tablet 0 10/11/2023 Active Vortioxetine HBr 5 MG Oral Tablet (Trintellix) Take 1 Tablet by mouth daily. 30 Tablet 2 10/30/2023 Active Sucralfate 1 GM/10ML Oral Suspension (Carafate) Take 10 mL by mouth in the morning and 10 mL at noon and 10 mL in the evening and 10 mL before bedtime. 420 mL 5 10/30/2023 Active Aprepitant 40 MG Oral Capsule 1 capsule once daily on Day 2 and Day 3 of vomiting 10 Capsule 4 10/30/2023 Active oxyCODONE-Acetaminop hen 10-325 MG Oral Tablet (Percocet)Indication s:Lumbar degenerative disc disease,Chronic pain syndrome Take 1 Tablet by mouth every 6 hours as needed for Pain, Moderate or Pain, Severe. 120 Tablet 0 10/30/2023 Active documented as of this encounter (statuses as of 11/12/2023) Active Problems Problem Noted Date Diagnosed Date [...] as of this encounter (statuses as of 11/12/2023) Resolved Problems Problem Noted Date Diagnosed Date [...] as of this encounter (statuses as of 11/12/2023) Immunizations Name Administration Dates Next Due COVID-19, MRNA-LNP, 23-24, P F, 30 MCG/0.3 mL, 12 YRS AND ABOVE, IM (PFIZER-Comirnaty) 06/15/2023 COVID-19, MRNA-LNP, 23-24, P F, 50 MCG/0.5 mL, 12 YRS AND ABOVE, IM (MODERNA-Spikevax) 07/24/2023 Covid-19, Mrna, Lnp-s, Pf, B ivalent, 50 Mcg, IM, 12 yrs and above (Moderna) 04/24/2022 Pneumococcal Conjugate Vacci ne, 20-valent ([id number]) 03/31/2023,07/04/2022 Seasonal Influenza, Quadriva lent Hd (Fluzone [...] Care Team (Late st Contact Info) Description 11/21/2023 2:00 PM EDT Office Visit Orthopaedics [facility] [address] [place] [address] Miguel Pelayo PA-C [address] [place] [address] 11/29/2023 10:00 AM EDT Imaging [facility] 2nd Floor Cardiology, [place] [address] [place] [address] 12/06/2023 9:40 AM EDT Telemedicine Family [facility] [address] [place] [address] Eliza Mcfarland MD [address] [place] [address] 05/07/2024 11:00 AM EDT Office Visit Nutrition & Weight Management, [facility] [address] [place] [address] Beverley Velasco PA-C [address] [place] [address] Scheduled Procedures Name Priority Associated Diagnoses Date/Ti me ESOPHAGOGASTRODUODENOSCOPY ( EGD), FLEXIBLE, TRANSORAL, DIAGNOSTIC Recall Shahid's esophagus with esophagitis ESOPHAGOGASTRODUODENOSCOPY ( EGD), FLEXIBLE, TRANSORAL, DIAGNOSTIC Epigastric pain Health Maintenance Due Date Last Done Comments DISCUSS TOBACCO CESSATION (REFER TO SMARTSET #8697) 1970 HIV Screening 1985 Albumin/Creatinine Ratio 01/29/1988 [...] the patient have Health Care Power of Public Service Director? No Code Status History Code Status Date [...] Advance Directives occurred with: Patient Care Teams Senior Engineering Team Leader Relationship Specialty Start Date End Date Eliza Mcfarland MD [address] [place] [address] PCP - General Family Medicine 12/09/21 documented as of this encounter
--- OUTSIDE RECORDS SUMMARY | 2024-03-27 15:54 | External Medical Summary | Summary of Care ---
Author Name Unknown Organization [facility] Address [address] [facility] [place] [address] Phone [phone] Care Team Providers Care Hospice Clinical Marketer Name Role Phone Eliza Mcfarland MD Primary [...] (Moderna) 04/24/2022 Pneumococcal Conjugate Vacci ne, 20-valent ([id number]) 03/31/2023,07/04/2022 Seasonal Influenza, Quadriva lent Hd (Fluzone [...] 11/21/2023 2:00 PM EDT Office Visit Orthopaedics [facility] [address] [place] [address] Miguel Pelayo PA-C [address] [place] [address] 11/29/2023 10:00 AM EDT Imaging [facility] 2nd Floor Cardiology, [place] [address] [place] [address] 12/06/2023 9:40 AM EDT Telemedicine Family [facility] [address] [place] [address] Eliza Mcfarland MD [address] [place] [address] 05/07/2024 11:00 AM EDT Office Visit Nutrition & Weight Management, [facility] [address] [place] [address] Beverley Velasco PA-C [address] [place] [address] Scheduled Procedures Name Priority Associated Diagnoses Date/Ti me ESOPHAGOGASTRODUODENOSCOPY ( EGD), FLEXIBLE, TRANSORAL, DIAGNOSTIC Recall Shahid's esophagus with esophagitis ESOPHAGOGASTRODUODENOSCOPY ( EGD), FLEXIBLE, TRANSORAL, DIAGNOSTIC Epigastric pain Health Maintenance Due Date Last Done Comments DISCUSS TOBACCO CESSATION (REFER TO SMARTSET #2436) 1970 HIV Screening 1985 Albumin/Creatinine Ratio 01/29/1988 [...] the patient have Health Care Power of Net Ui Developer? No Code Status History Code Status Date [...] Advance Directives occurred with: Patient Care Teams Hospice Clinical Marketer Relationship Specialty Start Date End Date Eliza Mcfarland MD [address] [place] [address] PCP - General Family Medicine 12/09/21 documented as of this encounter
--- OUTSIDE RECORDS SUMMARY | 2024-03-27 15:54 | External Medical Summary | Summary of Care ---
Author Name Unknown Organization [facility] Address [address] [place] [address] Phone [phone] Care Team Providers Care Cadastral Engineer Name Role Phone Eliza Mcfarland MD Primary Care Prov ider Reason for Referral * Evaluate & Treat - Unlimited Visits (Within 10 days (routine)) - Authorized Specialty Diagnoses / Procedures Referred By Lorenzo ham Referred To Contact Physical Therapy / Physical Medicine And Rehab Diagnoses Primary osteoarthritis of left knee Miguel Pelayo PA-C [address] [facility] [address] Referral ID Status Reason Start Date Expiration Date Visits Requested Visits Authorized [id number] Authorized Specialty Services Required 11/28/2023 [id number] Question Answer Referral Priority Within 10 days (routine) Where should this appointment be scheduled? Karen Comments Bjdx-mr-cphz joint space narrowing medial joint line Reason for Visit * Reason Comments NEW PATIENT Knee Pain L knee * Evaluate & Treat - Unlimited Visits (Within 10 days (routine)) - Authorized Specialty Diagnoses / Procedures Referred By Contstone t Referred To Contact Orthopaedic Surgery / Orthopedics Diagnoses Post-traumatic osteoarthritis of both knees Eliza Mcfarland MD [address] [place] [address] Warren Sahu DO [address] [facility] [place] [address] Referral ID Status Reason Start Date Expiration Date Visits Requested Visits Authorized [id number] Authorized Specialty Services Required 10/30/[phone] Encounter Details Date Type Department Care Team (Latest Contact Info) Description 11/28/2023 2:00 PM EDT Office Visit Orthopaedics [facility] [address] [place] [address] Miguel Pelayo PA-C [address] [place] [address] Primary osteoarthritis of left knee* Allergies Active Allergy Reactions Criticality Noted Date Comments Codeine Nausea/vomiting High 03/20/2014 Naloxone Nausea/vomiting 04/07/2022 Other reaction(s): rash/hives Tramadol Hives High 03/20/2014 Hydrocodone-Acetaminoph en Nausea/vomiting 12/09/2021 Hives and nausea documented as of this encounter (statuses as of 11/30/2023) Medications Medication Sig Dispensed Refills Start Date [...] Pain, Severe. 120 Tablet 0 10/30/2023 Active Hospital, Clinic, or Other Facility Administered Medication Ordered Dose Route Frequency Start Date End Date Status lidocaine 1% 1 mL - triamcinolone acetonide 40 mg/mL 1 mL inj 2 mLIndications:Primary osteoarthritis of left knee 2 mL IJ ONCE 11/28/2023 11/28/19 24 Ended documented as of this encounter (statuses as of 11/30/2023) Active Problems Problem Noted Date Diagnosed Date [...] as of this encounter (statuses as of 11/30/2023) Resolved Problems Problem Noted Date Diagnosed Date [...] as of this encounter (statuses as of 11/30/2023) Immunizations Name Administration Dates Next Due COVID-19, MRNA-LNP, 23-24, P F, 30 MCG/0.3 mL, 12 YRS AND ABOVE, IM (PFIZER-Comirnaty) 06/15/2023 COVID-19, MRNA-LNP, 23-24, P F, 50 MCG/0.5 mL, 12 YRS AND ABOVE, IM (MODERNA-Spikevax) 07/24/2023 Covid-19, Mrna, Lnp-s, Pf, B ivalent, 50 Mcg, IM, 12 yrs and above (Moderna) 04/24/2022 Pneumococcal Conjugate Vacci ne, 20-valent ([id number]) 03/31/2023,07/04/2022 Seasonal Influenza, Quadriva lent Hd (Fluzone [...] Progress Notes * Miguel Pelayo PA-C - 11/28/2023 2:34 PM EDTAssociated Order(s): LG Joint Inj/Arthro: L knee Post-Procedure Diagnose(s): Primary osteoarthritis of left knee Subjective Charleen Delfina is a 53 year old female. Chief Complaint Patient presents with NEW PATIENT Knee Pain L knee HPI: New patient referred regarding left knee pain. She points towards the medial joint line. She states it is chronic over the past several years that has been worsening as of the past several months. Denies any injury fall. Denies any mechanical symptoms or instability. No swelling or redness. Nocalf pain. New x- rays today. Knee Pain PMH: Patient Active Problem List Diagnosis Code Chronic airway obstruction, not elsewhere classified J44.89 Lumbago M54.50 Other psoriasis L40.8 Dermatophytosis of foot B35.3 HTN, goal below 140/90 I10 Lumbar degenerative disc disease M51.36 Migraine G43.909 Alkalosis, metabolic E87.3 Chronic back pain M54.9, G89.29 Hypertensive urgency I16.0 Recurrent generalized abdominal pain R10.84 Gastroesophageal reflux disease K21.9 Abdominal pain R10.9 JESSIE (generalized anxiety disorder) F41.1 Acute hyponatremia E87.1 Intractable nausea and vomiting R11.2 History of appendectomy Z90.49 COPD, 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 60 Blister Dosing Unit 11 Famotidine 20 MG Oral Tablet (Pepcid) Take 1 Tablet by mouth in the morning and 1 Tablet beforebedtime. 180 Tablet 3 Meclizine HCl 25 MG Oral Tablet (Antivert) [...] tab daily on days two through five (Patient not taking: Reported on 08/03/2023) 6 Tablet 0 Eszopiclone 2 MG Oral Tablet (Lunesta) Take 1 Tablet by mouth at bedtime. for sleep (Patient taking differently: Take 1 Tablet by mouth at bedtime. for sleep) 30 Tablet 2 Comirnaty 30 MCG/0.3ML Intramuscular Suspension Aprepitant 80 MG Oral Capsule (Emend) Take 1 capsule by mouth one time daily on Day 1 of vomiting 10 Capsule 2 Prochlorperazine Maleate 10 MG Oral Tablet (Compazine) Take 1 Tablet by mouth every 6 hours as needed for Nausea. 30 Tablet 2 Lisinopril 40 MG Oral Tablet Take 1 Tablet by mouth in the morning. 90 Tablet 2 clonazePAM 1 MG Oral Tablet (KlonoPIN) Take 1 Tablet by mouth in the morning and 1 Tablet before bedtime. 60 Tablet 3 hydrALAZINE HCl 50 MG Oral Tablet (Apresoline) Take 1 Tablet by mouth 2 times a day. 180 Tablet2 Ondansetron 4 MG Oral Tablet Disintegrating (Zofran) 1 tab(s) By Mouth three times daily for 5 days as needed for nausea or vomiting. 15 Tablet 0 Pantoprazole Sodium 40 MG Oral Tablet Delayed Release (Protonix) 1 tab(s) By Mouth Daily,x30 Day(s) 30 Tablet 0 Vortioxetine HBr 5 MG Oral Tablet (Trintellix) Take 1 Tablet by mouth daily. 30 Tablet 2 Sucralfate 1 GM/10ML Oral Suspension (Carafate) Take 10 mL by mouth in the morning and 10 mL atnoon and 10 mL in the evening and 10 mL before bedtime. 420 mL 5 Aprepitant 40 MG Oral Capsule 1 capsule once daily on Day 2 and Day 3 of vomiting 10 Capsule 4 oxyCODONE-Acetaminophen 10-325 MG Oral Tablet (Percocet) Take 1 Tablet by mouth every 6 hours as needed for Pain, Moderate or Pain, Severe. 120 Tablet 0 Current Facility-Administered Medications Medication Dose Route Frequency Provider Last Rate Last Admin lidocaine 1% 1 mL - triamcinolone acetonide 40 mg/mL 1 mL inj 2 mL 2 mL Injection Once Miguel Pelayo PA-C Past Medical History: Diagnosis Date Cellulitis and abscess of trunk Chronic airway obstruction, not elsewhere classified Chronic hepatitis C without mention of hepatic coma Closed fracture of unspecified part of tibia 2010 Fractured lower leg Dermatophytosis of foot Generalized anxiety disorder HTN, goal below 130/80 12/06/2014 Lumbago Narcotic dependence (HCC) 12/06/2014 Nausea with vomiting 12/06/2014 Other psoriasis Past Surgical History: Procedure Laterality Date DELIVERY EGD, FLEXIBLE, DIAGNOSTIC N/A 05/24/2017 ESOPHAGOGASTRODUODENOSCOPY (EGD), FLEXIBLE, TRANSORAL, DIAGNOSTIC performed by Klarissa Trevino MD at ENDOSCOPY [facility] EGD, FLEXIBLE, DIAGNOSTIC N/A 08/16/2023 biopsies show Shahid's esophagus/recall 3 years/EGD EGD, FLEXIBLE, DIAGNOSTIC 08/16/2023 ESOPHAGOGASTRODUODENOSCOPY (EGD), FLEXIBLE, TRANSORAL, DIAGNOSTIC performed by Ce Nielsen MD at ENDOSCOPY [facility] INCISION OF TIBIA/FIBULA REMOVAL OF APPENDIX Review of patient's allergies indicates: Allergen Reactions Codeine Nausea/vomiting Tramadol Hives Naloxone Nausea/vomiting Other reaction(s): rash/hives Vicodin Hp [Hydrocodone-Acetaminophen] Nausea/vomiting Hives and nausea Family History Problem Relation Age of Onset Diabetes Father Type II Heart Disorder Father SC No Past Hx Mother Neurological Disorder Son ADD Neurological Disorder Daughter Epilepsy Family Status Relation Status Fa at age 57 No cause given Mo (Not Specified) Son (Not Specified) Genoveva (Not Specified) Social History Socioeconomic History Marital status: Spouse name: Not on file Number of children: Not on file Years of education: Not on file Highest education level: Not on file Occupational History Not on file Tobacco Use Smoking status: Every Day Current packs/day: 0.50 Average packs/day: 0.5 packs/day for 25.0 years (12.5 ttl pk-yrs) Types: Cigarettes Smokeless tobacco: Never Vaping Use Vaping Use: Never used Substance and Sexual Activity Alcohol use: No Drug use: Not Currently Frequency: 4.0 times per week Types: Marijuana Comment: once a month Sexual activity: Not Currently Partners: Male Other Topics Concern Not on file Social History Narrative Single lives with children, no pets in house, does not consume caffeine and never uses a seat belt. Social Determinants of Health Financial Resource Strain: Not on file Food Insecurity: Food Insecurity Present (07/25/2023) Hunger Vital Sign Worried About Running Out of Food in the Last Year: Often true Ran Out of Food in the Last Year: Often true Transportation Needs: Not on file Physical Activity: Not on file Stress: Not on file Social Connections: Not on file Intimate Partner Violence: Not on file Housing Stability: Not on file Objective LMP 08/14/2016 complete review of systems negative General: alert and oriented x3 female, no acute distress, appears currently stated age, pleasant, well nourished Skin: Left knee does not reveal any erythema, effusion, ecchymosis, abrasion, laceration, skin breakdown otherwise Neurovascular: Left lower extremity is neurovascularly intact with good sensation strength throughout, calf supple nontender, toes were mobile, +5 strength dorsi and plantar flexion of the foot Musculoskeletal: Left knee ROM 0-120, medial jointline tenderness, crepitation noted in PFJ, femoral condyles are tender as well. Ligamentously stable regarding cruciate and collateral ligaments. Extensor mechanism intact. No obvious cystic change or masses the popliteal fossa. Pes anserine bursa and patellar tendon nontender. Hip and ankle atraumatic X-rays of the left knee four views reveals gcjn-ir-ojha joint space narrowing along medial joint line. Correlates clinically. No acute findings such as fracture dislocation or subluxation. Unable to identify any type of obvious cystic changes or masses in the bone. Official radiology report to follow accordingly and we listed in the patient's chart under imaging. Personal interpretation and documentation regarding today's plain film radiographs performed by myself. ASSESSMENT/PLAN: Primary osteoarthritis of left knee (Primary) - lidocaine 1% 1 mL - triamcinolone acetonide 40 mg/mL 1 mL inj 2 mL - PHYSICAL THERAPY REFERRAL OP Other orders - XR KNEE 4 OR MORE VIEWS Follow Up: Return in about 4 weeks (around 12/26/2023) for Telephone Visit. | For: Telephone Visit |Check-out note: PT Impression: Left knee osteoarthritis Plan: Today 's findings were discussed with the patient. They were educated regarding their diagnosis. Multiple treatment options discussed and agreed upon, including physical therapy, bracing, corticosteroid injections, Voltaren gel, thermal modalities, behavior modification and rest. The patient is in agreement. Telephonic visit 3-4 weeks to discuss results. Minimal relief with the we would discuss OQUENDO. The patient has no other questions or concerns. Pleased with today 's care. Call sooner if needed. Patient instructed to call or return to clinic for fever or warmth and redness at injection site for potential infection. Patient also advised as to potential for steroid flare reaction including increased pain and redness at injection site which should be treated with ice and resolve within 24 hours. LG Joint Inj/Arthro: L knee on 11/28/2023 2:36 PM Indications: pain Details: 22 G needle, anteromedial approach Medications: (Triamcinolone lidocaine) Outcome: tolerated well, no immediate complications Procedure, treatment alternatives, risks and benefits explained, specific risks discussed. Consent was given by the patient. Immediately prior to procedure a time out was called to verify the correctpatient, procedure, equipment, litigation support analyst and site/side marked as required. Patient was prepped and draped in the usual sterile fashion. This chart was completed in part utilizing [employer] Speech Voice Recognition Software. Grammatical errors, random word insertions, prounoun errors, and incomplete sentences are an occasional consequence of this system due to software limitations, ambient noise, and hardware issues. Any formal questions or concerns about the content, text, or information contained within the body of this dictation should be directly addressed to the provider for clarification. 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 [address] [place] [address] Miguel Pelayo PA-C [address] [place] [address] 01/11/2024 11:20 AM EDT Office Visit Nutrition & Weight Management, [facility] [address] [place] [address] Beverley Velasco PA-C [address] [place] [address] Pending Results Name Type Priority Associated Diagnoses Date /Time XR KNEE 4 OR MORE VIEWS Medical Imaging Routine 11/28/2023 2:09 PM EDT Scheduled Procedures Name Priority Associated Diagnoses Date/Ti me ESOPHAGOGASTRODUODENOSCOPY ( EGD), FLEXIBLE, TRANSORAL, DIAGNOSTIC Recall Shahid's esophagus with esophagitis ESOPHAGOGASTRODUODENOSCOPY ( EGD), FLEXIBLE, TRANSORAL, DIAGNOSTIC Epigastric pain Scheduled Referrals Name Type Priority Associated Diagnoses Orde r Schedule PHYSICAL THERAPY REFERRAL OP Referral Within 10 days (routine) Primary osteoarthritis of left knee Ordered: 11/28/2023 Health Maintenance Due Date Last Done Comments DISCUSS TOBACCO CESSATION (REFER TO SMARTSET #6996) 1970 HIV Screening 1985 Albumin/Creatinine Ratio 01/29/1988 [...] Procedure Name Priority Date/Time Associated Diagnosis Comments DC ARTHROCENTESIS ASPIR&/INJ MAJOR JT/BURSA W/O US Routine 11/28/2023 2:36 PM EDT Primary osteoarthritis of left knee documented in this encounter Results * DC ARTHROCENTESIS ASPIR&/INJ MAJOR JT/BURSA W/O US (11/28/2023 2:36 PM EDT) Narrative Miguel Pelayo PA-C - 11/28/2023 2:36 PM EDT Miguel Pelayo PA-C 11/28/2023 2:37 PM LG Joint Inj/Arthro: L knee on 11/28/2023 2:36 PM Indications: pain Details: 22 G needle, anteromedial approach Medications: (Triamcinolone lidocaine) Outcome: tolerated well, no immediate complications Procedure, treatment alternatives, risks and benefits explained, specific risks discussed. Consent was given by the patient. Immediately prior to procedure a time out was called to verify the correct patient, procedure, equipment, litigation support analyst and site/side marked as required. Patient was prepped and draped in the usual sterile fashion. Miguel Pelayo PA-C PROCDOC FORM documented in this encounter Visit Diagnoses Diagnosis Primary osteoarthritis of left knee- Primary Primary localized osteoarthrosis, lower leg documented in this encounter Administered Medications Inactive Administered Medications - up to 3 most recent administrations Medication Order MAR Action Action Date Dose Rate Site lidocaine 1% 1 mL - triamcinolone acetonide 40 mg/mL 1 mL inj 2 mL 2 mL, Injection, ONCE, On Sun11/28/23 at 1515, For 1 dose, Lidocaine 1% 1mL Triamcinolone Acetonide 40 mg/mL 1 mL (Final concentration = 20 mg/mL) REFRIGERATE and SHAKE WELL Given 11/28/2023 2:50 PM EDT 2 mL Knee Left documented in this encounter Advance Directives Latest Code Status on File Code Status Date Activated Date Inactivated Comments Full Code 12/21/2022 2:17 PM 12/22/2022 1:45 PM This order reflects the patients wishes and were consensually agreed upon. Question Answer Comments Discussion of Advance Directives occurred with: Patient Does the patient have a Living Will? No Does the patient have Health Care Power of Sheriffs? No Code Status History Code Status Date [...] Advance Directives occurred with: Patient Care Teams Cadastral Engineer Relationship Specialty Start Date End Date Eliza Mcfarland MD [address] [place] [address] PCP - General Family Medicine 12/09/21 documented as of this encounter"
--- OUTSIDE RECORDS SUMMARY | 2024-03-27 15:54 | External Medical Summary | Summary of Care ---
Author Name Unknown Organization [facility] Address [address] [place] [address] Phone [phone] Care Team Providers Care International Marketing Coordinator Name Role Phone Eliza Mcfarland MD Primary Care Prov ider Reason for Visit * Reason Onset Date Comments Advice 11/09/2023 Encounter Details Date Type Department Care Team (Late st Contact Info) Description 11/09/2023 Telephone Care Coordination and Integration [address] [place] [address] Kirti Nagel RN [address] [address] Advice Allergies Active Allergy Reactions Criticality Noted Date Comments Codeine Nausea/vomiting High 03/20/2014 Morphine Itching,Other (Pleas e comment),Nausea/vomit ing 05/24/2017 Naloxone Nausea/vomiting 04/07/2022 Other reaction(s): rash/hives Tramadol Hives High 03/20/2014 Hydrocodone-Acetamino phen Nausea/vomiting 12/09/2021 Hives and nausea documented as of this encounter (statuses as of 12/17/2023) Medications Medication Sig Dispensed Refills Start Date [...] on 12/12/2023 Comirnaty 30 MCG/0.3ML Intramuscular Suspension 0 06/15/2023 [...] Daily,x30 Day(s) 30 Tablet 0 10/11/2023 Active Sucralfate 1 GM/10ML Oral Suspension (Carafate) Take 10 mL by mouth in the morning and 10 mL at noon and 10 mL in the evening and 10 mL before bedtime. 420 mL 5 10/30/2023 Active Aprepitant 40 MG Oral Capsule 1 capsule once daily on Day 2 and Day 3 of vomiting 10 Capsule 4 10/30/2023 Active documented as of this encounter (statuses as of 12/17/2023) Active Problems Problem Noted Date Diagnosed Date [...] as of this encounter (statuses as of 12/17/2023) Resolved Problems Problem Noted Date Diagnosed Date [...] as of this encounter (statuses as of 12/17/2023) Immunizations Name Administration Dates Next Due COVID-19, MRNA-LNP, 23-24, P F, 30 MCG/0.3 mL, 12 YRS AND ABOVE, IM (PFIZER-Comirnaty) 06/15/2023 COVID-19, MRNA-LNP, 23-24, P F, 50 MCG/0.5 mL, 12 YRS AND ABOVE, IM (MODERNA-Spikevax) 07/24/2023 Covid-19, Mrna, Lnp-s, Pf, B ivalent, 50 Mcg, IM, 12 yrs and above (Moderna) 04/24/2022 Pneumococcal Conjugate Vacci ne, 20-valent ([id number]) 03/31/2023,07/04/2022 Seasonal Influenza, Quadriva lent Hd (Fluzone [...] as of this encounter Progress Notes * Kirti Nagel RN - 11/09/2023 1:21 PM EDT Miky Montelongo, Patient reports that she stopped taking her Trintellix due to severe headache that was almost migraine like. Patient did not take her Trintellix today and has not had a headache. Patient reports thatshe is decreased her smoking to a half a pack per day but is open to other alternatives or assistance regarding smoking cessation. Please advise. documented in this encounter Plan of Treatment Upcoming Encounters Date Type Department Care Team (Late st Contact Info) Description 12/31/2023 3:45 PM EDT Telemedicine Orthopaedics [facility] [address] [place] [address] Miguel Pelayo PA-C [address] [place] [address] 01/11/2024 11:20 AM EDT Office Visit Nutrition & Weight Management, [facility] [address] [place] [address] Beverley Velasco PA-C [address] [place] [address] 02/12/2024 10:30 AM EDT Telemedicine Psychology [facility] [place] [address] [place] [phone] Fide Dale, CERTIFIED PROFESSIONAL MIDWIFE [address] [place] [address] Scheduled Procedures Name Priority Associated Diagnoses Date/Ti me ESOPHAGOGASTRODUODENOSCOPY ( EGD), FLEXIBLE, TRANSORAL, DIAGNOSTIC Recall Shahid's esophagus with esophagitis ESOPHAGOGASTRODUODENOSCOPY ( EGD), FLEXIBLE, TRANSORAL, DIAGNOSTIC Epigastric pain Health Maintenance Due Date Last Done Comments DISCUSS TOBACCO CESSATION (REFER TO SMARTSET #8962) 1970 HIV Screening 1985 Albumin/Creatinine Ratio 01/29/1988 [...] the patient have Health Care Power of Principal Process Engineer? No Code Status History Code Status [...] Advance Directives occurred with: Patient Care Teams International Marketing Coordinator Relationship Specialty Start Date End Date Eliza Mcfarland MD [address] [place] [address] PCP - General Family Medicine 12/09/21 documented as of this encounter
--- OUTSIDE RECORDS SUMMARY | 2024-03-27 15:54 | External Medical Summary | Summary of Care ---
Author Name Unknown Organization [facility] Address [address] [place] [address] Phone [phone] Care Team Providers Care Banbury Operator Name Role Phone Eliza Mcfarland MD Primary Care Prov ider Reason for Referral * Evaluate & Treat - Unlimited Visits (Within 10 days (routine)) - Authorized Specialty Diagnoses / Procedures Referred By Lorenzo ham Referred To Contact Physical Therapy / Physical Medicine And Rehab Diagnoses Primary osteoarthritis of left knee Miguel Pelayo PA-C [address] [facility] [address] Referral ID Status Reason Start Date Expiration Date Visits Requested Visits Authorized [id number] Authorized Specialty Services Required 11/28/[phone] Question Answer Referral Priority Within 10 days (routine) Where should this appointment be scheduled? Karen Comments Pzvm-of-muxc joint space narrowing medial joint line Reason for Visit * Reason Comments NEW PATIENT Knee Pain L knee * Evaluate & Treat - Unlimited Visits (Within 10 days (routine)) - Authorized Specialty Diagnoses / Procedures Referred By Contstone t Referred To Contact Orthopaedic Surgery / Orthopedics Diagnoses Post-traumatic osteoarthritis of both knees Eliza Mcfarland MD [address] [place] [address] Warren Sahu DO [address] [facility] [place] [address] Referral ID Status Reason Start Date Expiration Date Visits Requested Visits Authorized [id number] Authorized Specialty Services Required 10/30/[phone] Encounter Details Date Type Department Care Team (Latest Contact Info) Description 11/28/2023 2:00 PM EDT Office Visit Orthopaedics [facility] [address] [place] [address] Miguel Pelayo PA-C [address] [place] [address] Primary osteoarthritis of left knee* Allergies Active Allergy Reactions Criticality Noted Date Comments Codeine Nausea/vomiting High 03/20/2014 Naloxone Nausea/vomiting 04/07/2022 Other reaction(s): rash/hives Tramadol Hives High 03/20/2014 Hydrocodone-Acetaminoph en Nausea/vomiting 12/09/2021 Hives and nausea documented as of this encounter (statuses as of 11/28/2023) Medications Medication Sig Dispensed Refills Start Date [...] as of this encounter (statuses as of 11/28/2023) Active Problems Problem Noted Date Diagnosed Date [...] as of this encounter (statuses as of 11/28/2023) Resolved Problems Problem Noted Date Diagnosed Date [...] as of this encounter (statuses as of 11/28/2023) Immunizations Name Administration Dates Next Due COVID-19, MRNA-LNP, 23-24, P F, 30 MCG/0.3 mL, 12 YRS AND ABOVE, IM (PFIZER-Comirnaty) 06/15/2023 COVID-19, MRNA-LNP, 23-24, P F, 50 MCG/0.5 mL, 12 YRS AND ABOVE, IM (MODERNA-Spikevax) 07/24/2023 Covid-19, Mrna, Lnp-s, Pf, B ivalent, 50 Mcg, IM, 12 yrs and above (Moderna) 04/24/2022 Pneumococcal Conjugate Vacci ne, 20-valent ([id number]) 03/31/2023,07/04/2022 Seasonal Influenza, Quadriva lent Hd (Fluzone [...] Current Outpatient Medications Medication Sig Dispense Refill Adydfdjuzfi-Ohaavdoac-Gticpo 200-62.5-25 MCG/ACT Aerosol Powder Breath Activated (Trelegy [...] performed by Klarissa Trevino MD at ENDOSCOPY [facility] EGD, FLEXIBLE, DIAGNOSTIC N/A 08/16/2023 biopsies show Shahid's esophagus/recall 3 years/EGD EGD, FLEXIBLE, DIAGNOSTIC 08/16/2023 ESOPHAGOGASTRODUODENOSCOPY (EGD), FLEXIBLE, TRANSORAL, DIAGNOSTIC performed by Ce Nielsen MD at ENDOSCOPY [facility]ISION OF TIBIA/FIBULA REMOVAL OF APPENDIX Review of patient's allergies indicates: Allergen Reactions Codeine Nausea/vomiting Tramadol Hives Naloxone Nausea/vomiting Other reaction(s): rash/hives Vicodin Hp [Hydrocodone-Acetaminophen] Nausea/vomiting Hives and nausea Family History Problem Relation Age of Onset Diabetes Father Type II Heart Disorder Father [place] No Past Hx Mother Neurological Disorder Son [...] of the left knee four views reveals hayt-vi-xyfk joint space narrowing along medial joint line. [...] called to verify the correctpatient, procedure, equipment, office support clerk and site/side marked as required. Patient was prepped and draped in the usual sterile fashion. This chart was completed in part utilizing [employer] Speech Voice Recognition Software. Grammatical errors, random [...] Rozina Schroeder LPN documented in this encounter Plan of Treatment Upcoming Encounters Date Type Department Care Team (Late st Contact Info) Description 12/11/2023 5:20 PM EDT Telemedicine [address] [address] Eliza Mcfarland MD [address] [place] [address] 12/31/2023 3:45 PM EDT Telemedicine Orthopaedics [facility] [address] [place] [address] Miguel Pelayo PA-C [address] [place] [address] 01/11/2024 11:20 AM EDT Office Visit Nutrition & Weight Management, [facility] [address] [place] [address] Beverley Velasco PA-C [address] [place] [address] Pending Results Name Type Priority Associated Diagnoses [...] Comments DISCUSS TOBACCO CESSATION (REFER TO SMARTSET #7301) 1970 HIV Screening 1985 Albumin/Creatinine Ratio 01/29/1988 [...] Procedure Name Priority Date/Time Associated Diagnosis Comments MS ARTHROCENTESIS ASPIR&/INJ MAJOR JT/BURSA W/O US Routine 11/28/2023 2:36 PM EDT Primary osteoarthritis of left knee documented in this encounter Results * MS ARTHROCENTESIS ASPIR&/INJ MAJOR JT/BURSA W/O US (11/28/2023 [...] to verify the correct patient, procedure, equipment, office support clerk and site/side marked as required. Patient was [...] the patient have Health Care Power of Pipe Cutter? No Code Status History Code Status [...] Advance Directives occurred with: Patient Care Teams Banbury Operator Relationship Specialty Start Date End Date Eliza Mcfarland MD [address] [place] [id number] PCP - General Family Medicine 12/09/21 documented as of this encounter"
--- OUTSIDE RECORDS SUMMARY | 2024-03-27 15:54 | External Medical Summary | Summary of Care ---
Author Name Unknown Organization [facility] Address [address] [place] [address] Phone [phone] Care Team Providers Care Prenatal Teacher Name Role Phone Eliza Mcfarland MD Primary Care Prov ider Reason for Visit * Reason Onset Date Comments Health Maintenance 12/06/2023 Encounter Details Date Type Department Care Team (Late st Contact Info) Description 12/06/2023 Telephone [facility] [address] [place] [address] Eliza Mcfarland MD [address] [place] [address] Health Maintenance Allergies Active Allergy Reactions Criticality Noted Date Comments Codeine Nausea/vomiting High 03/20/2014 Naloxone Nausea/vomiting 04/07/2022 Other reaction(s): rash/hives Tramadol Hives High 03/20/2014 Hydrocodone-Acetaminoph en Nausea/vomiting 12/09/2021 Hives and nausea documented as of this encounter (statuses as of 12/06/2023) Medications Medication Sig Dispensed Refills Start Date [...] as of this encounter (statuses as of 12/06/2023) Active Problems Problem Noted Date Diagnosed Date [...] as of this encounter (statuses as of 12/06/2023) Resolved Problems Problem Noted Date Diagnosed Date [...] as of this encounter (statuses as of 12/06/2023) Immunizations Name Administration Dates Next Due COVID-19, MRNA-LNP, 23-24, P F, 30 MCG/0.3 mL, 12 YRS AND ABOVE, IM (PFIZER-Comirnaty) 06/15/2023 COVID-19, MRNA-LNP, 23-24, P F, 50 MCG/0.5 mL, 12 YRS AND ABOVE, IM (MODERNA-Spikevax) 07/24/2023 Covid-19, Mrna, Lnp-s, Pf, B ivalent, 50 Mcg, IM, 12 yrs and above (Moderna) 04/24/2022 Pneumococcal Conjugate Vacci ne, 20-valent ([id number]) 03/31/2023,07/04/2022 Seasonal Influenza, Quadriva lent Hd (Fluzone [...] encounter Miscellaneous Notes * Telephone Encounter - Nicole Gallardo LPN - 12/06/2023 1:17 PM EDT Care Gaps Comprehensive Care Outreach Last Office/Telemedicine Visit: 06/18/2023 (in office), 10/30/2023 (telemedicine) Next Office Visit: 12/11/2023 Hemoglobin AIC Results: Lab Results Component Value Date/Time HEMOGLOBIN A1C - [facility] 6.2 (H) 06/08/2022 10:57 AM BP Readings from Last 1 Encounters: 08/27/23 136/80 Reviewed Health Maintenance below: Health Maintenance Topic Date Due Albumin/Creatinine Ratio Never done Hepatitis B (1 of 3 - 19+ 3-dose series) Never done Cervical Cancer Screening Never done Mammogram Never done Colorectal Cancer Screening Never done Care Gap Outreach Action Taken: Left message Mammo Pap Labs crs documented in this encounter Plan of Treatment Upcoming Encounters Date Type Department Care Team (Late st Contact Info) Description 12/11/2023 5:20 PM EDT Telemedicine [facility] [address] [place] [address] Eliza Mcfarland MD [address] [place] [address] 12/31/2023 3:45 PM EDT Telemedicine Orthopaedics [facility] [address] [place] [address] Miguel Pelayo PA-C [address] [place] [address] 01/11/2024 11:20 AM EDT Office Visit Nutrition & Weight Management, [facility] [address] [place] [address] Beverley Velasco PA-C [address] [place] [address] Scheduled Procedures Name Priority Associated Diagnoses Date/Ti me ESOPHAGOGASTRODUODENOSCOPY ( EGD), FLEXIBLE, TRANSORAL, DIAGNOSTIC Recall Shahid's esophagus with esophagitis ESOPHAGOGASTRODUODENOSCOPY ( EGD), FLEXIBLE, TRANSORAL, DIAGNOSTIC Epigastric pain Health Maintenance Due Date Last Done Comments DISCUSS TOBACCO CESSATION (REFER TO SMARTSET #2858) 1970 HIV Screening 1985 Albumin/Creatinine Ratio 01/29/1988 [...] the patient have Health Care Power of Career Advisor? No Code Status History Code Status Date [...] Advance Directives occurred with: Patient Care Teams Prenatal Teacher Relationship Specialty Start Date End Date Eliza Mcfarland MD [address] [place] [address] PCP - General Family Medicine 12/09/21 documented as of this encounter
--- OUTSIDE RECORDS SUMMARY | 2024-03-27 15:54 | External Medical Summary | Summary of Care ---
Author Name Unknown Organization [facility] Address [address] [place] [address] Phone [phone] Care Team Providers Care Php Architect Name Role Phone Eliza Mcfarland MD Primary Care Prov ider Reason for Visit * Reason Onset Date Comments Order Request 12/05/2023 DME Encounter Details Date Type Department Care Team (Late st Contact Info) Description 12/05/2023 Telephone [facility] [address] [place] [address] Eliza Mcfarland MD [address] [place] [phone] Order Request (DME) Allergies Active Allergy Reactions Criticality Noted Date Comments Codeine Nausea/vomiting High 03/20/2014 Morphine Itching,Other (Pleas e comment),Nausea/vomit ing 05/24/2017 Naloxone Nausea/vomiting 04/07/2022 Other reaction(s): rash/hives Tramadol Hives High 03/20/2014 Hydrocodone-Acetamino phen Nausea/vomiting 12/09/2021 Hives and nausea documented as of this encounter (statuses as of 12/13/2023) Medications Medication Sig Dispensed Refills Start Date [...] as of this encounter (statuses as of 12/13/2023) Active Problems Problem Noted Date Diagnosed Date [...] as of this encounter (statuses as of 12/13/2023) Resolved Problems Problem Noted Date Diagnosed Date [...] as of this encounter (statuses as of 12/13/2023) Immunizations Name Administration Dates Next Due COVID-19, MRNA-LNP, 23-24, P F, 30 MCG/0.3 mL, 12 YRS AND ABOVE, IM (PFIZER-Comirnaty) 06/15/2023 COVID-19, MRNA-LNP, 23-24, P F, 50 MCG/0.5 mL, 12 YRS AND ABOVE, IM (MODERNA-Spikevax) 07/24/2023 Covid-19, Mrna, Lnp-s, Pf, B ivalent, 50 Mcg, IM, 12 yrs and above (Moderna) 04/24/2022 Pneumococcal Conjugate Vacci ne, 20-valent ([id number]) 03/31/2023,07/04/2022 Seasonal Influenza, Quadriva lent Hd (Fluzone [...] encounter Miscellaneous Notes * Telephone Encounter - Beryl Patterson OSA - 12/13/2023 12:24 PM EDT Will be faxed back today. * Telephone Encounter - Beryl Patterson OSA - 12/07/2023 10:45 AM EDT Received fax from [facility]. Gave to PCP. * Telephone Encounter - Promise Underwood LPN - 12/05/2023 12:38 PM EDT Message rec'd from DME to inform Dr Mcfarland that she is faxing some forms to her on this pt to be signed and faxed back to DME either by or her PA. ROSITA Virgen Eligio documented in this encounter Plan of Treatment Upcoming Encounters Date Type Department Care Team (Late st Contact Info) Description 12/31/2023 3:45 PM EDT Telemedicine Orthopaedics [facility] [address] [place] [address] Miguel Pelayo PA-C [address] [place] [address] 01/11/2024 11:20 AM EDT Office Visit Nutrition & Weight Management, [facility] [address] [place] [address] Beverley Velasco PA-C [address] [place] [address] 02/12/2024 10:30 AM EDT Telemedicine Psychology Valeri Drew [address] [place] [phone] [place]ide [place], COMPUTER CLERK [address] [facility] [place] [address] Scheduled Procedures Name Priority Associated Diagnoses Date/Ti [...] the patient have Health Care Power of Multi Mission Helicopter Aircrewman? No Code Status History Code Status Date [...] Directives occurred with: Patient Care Teams Php Architect Relationship Specialty Start Date End Date Eliza Mcfarland MD [address] [place] [address] PCP - General Family Medicine 12/09/21 documented as of this encounter
--- OUTSIDE RECORDS SUMMARY | 2024-03-27 15:54 | External Medical Summary | Summary of Care ---
Author Name Unknown Organization [facility] Address [address] [place] [address] Phone [phone] Care Team Providers Care Industrial Sociologist Name Role Phone Eliza Mcfarland MD Primary Care Prov ider Reason for Referral * Evaluate & Treat - Unlimited Visits (Within 3 days (urgent)) - Authorized Specialty Diagnoses / Procedures Referred By Contac t Referred To Contact Psychology Diagnoses JESSIE (generalized anxiety disorder) Chronic insomnia Grief Severe depression (HCC) Eliza Mcfarland MD [address] [place] [address] Referral ID Status Reason Start Date Expiration Date Visits Requested Visits Authorized [id number] Authorized Specialty Services Required 12/12/[phone] Question Answer Referral Priority Within 3 days (urgent) Where should this appointment be scheduled? [facility] Is this referral for medication management? No Reason for Referral: Depression/Anxiety/Bipolar Specific Condition? Depression Comments Multiple concerns depression, grief, PTSD, Anxiety, Insomnia Reason for Visit * Reason Comments Follow Up 1m Encounter Details Date Type Department Care Team (Late st Contact Info) Description 12/12/2023 9:00 [place] [address] Eliza Mcfarland MD [address] [place] [phone] Severe depression (HCC)*; Cyclic vomiting syndrome; Intractable nausea and vomiting; JESSIE (generalized anxiety disorder); Chronic insomnia; Grief; Lumbar degenerative disc disease; Chronic pain syndrome Allergies Active Allergy Reactions Criticality Noted Date Comments Codeine Nausea/vomiting High 03/20/2014 Morphine Itching,Other (Pleeber e comment),Nausea/vomit ing 05/24/2017 Naloxone Nausea/vomiting 04/07/2022 [...] for Nausea. or vomiting 12 Tablet 0 12/12/2023 Active oxyCODONE-Acetamino phen 10-325 MG Oral Tablet (Percocet)Indicatio ns:Lumbar degenerative disc disease,Chronic pain syndrome Take 1 Tablet by mouth every 6 hours as needed for Pain, Moderate or Pain, Severe. 120 Tablet 0 12/12/2023 Active clonazePAM 1 MG Oral Tablet (KlonoPIN) Take 1 Tablet by mouth in the morning and 1 Tablet before bedtime. 60 Tablet 3 12/12/2023 Active Prochlorperazine Maleate 10 MG Oral Tablet (Compazine) Take 1 Tablet by mouth every 6 hours as needed for Nausea. 30 Tablet 2 09/18/2023 12/12/19 24 Discontinu ed(Refill) clonazePAM 1 MG Oral Tablet (KlonoPIN) Take 1 Tablet by mouth in the morning and 1 Tablet before bedtime. 60 Tablet 3 09/18/2023 12/12/19 24 Discontinu ed(Refill) Vortioxetine HBr 5 MG Oral Tablet (Trintellix) Take 1 Tablet by mouth daily. 30 Tablet 2 10/30/2023 12/12/19 24 Discontinu ed(End of Procedure) oxyCODONE-Acetamino phen 10-325 MG Oral Tablet (Percocet)Indicatio ns:Lumbar degenerative disc disease,Chronic pain syndrome Take 1 Tablet by mouth every 6 hours as needed for Pain, Moderate or Pain, Severe. 120 Tablet 0 10/30/2023 12/12/19 24 Discontinu ed(Refill) documented as of this encounter (statuses as of 12/17/2023) Active Problems Problem Noted Date Diagnosed Date Gastro-esophageal reflux disease without esophag itis 09/18/2023 Chronic obstructive pulmonary disease 09/18/2023 Dependence on nocturnal oxygen therapy Food insecurity 08/20/2023 Overview: Per [facility] Protocol Current smoker 06/19/2023 Inflammatory liver [...] (Moderna) 04/24/2022 Pneumococcal Conjugate Vacci ne, 20-valent ([id number]) 03/31/2023,07/04/2022 Seasonal Influenza, Quadriva lent Hd (Fluzone [...] of this encounter Progress Notes * Eliza Mcfarladn MD - 12/12/2023 9:22 AM EDT Images from the original note were not included. Portions of this record may have been dictated using voice recognition software. Variations in spelling and in vocabulary are possible and unintentional. Some errors may not be recognized or corrected at time of dictation. History of Present Illness Charleen Mathis is a 53 year old female that presents for Follow Up (1m ) Depression, did not tolerate trintellex, created too much nausea. Known cyclic vomiting syndrome, seemed to be mostly stable. Still having some nausea but no episodes of emesis. She did well most of November. Using phenergan occasionally over the past week. Physical Exam There were no vitals filed for this visit. Physical Exam Vitals and nursing note reviewed. [...] Plan Severe depression (HCC) Several treatment failures in the past, previously was doing well on Seroquel but stopped unclear why. I do think that she would be better managed medically with Psychiatry referral placed today. Also strongly encourage patient to consider therapy. - ADULT/PEDS PSYCHOLOGY REFERRAL OP Cyclic vomiting syndrome Patient was doing better with less nausea when she was taking her Compazine daily recommend restart. Intractable nausea and vomiting Likely will need additional testing possible swallow study. Patient does have scheduled follow-up with GI encouraged to attend. JESSIE (generalized anxiety disorder) As above Clonazepam currently twice daily as needed. - ADULT/PEDS PSYCHOLOGY REFERRAL OP Chronic insomnia Continue current Several treatment failures in the past stable on current Lunesta - ADULT/PEDS PSYCHOLOGY REFERRAL OP Grief Strongly encouraged therapy - ADULT/PEDS PSYCHOLOGY REFERRAL OP Lumbar degenerative disc disease Failed physical therapy and injections in the past recommend continue current. - oxyCODONE-Acetaminophen 10-325 MG Oral Tablet (Percocet); Take 1 Tablet by mouth every 6 hours asneeded for Pain, Moderate or Pain, Severe. Chronic pain syndrome As above - oxyCODONE-Acetaminophen 10-325 MG Oral Tablet (Percocet); Take 1 Tablet by mouth every 6 hours asneeded for Pain, Moderate or Pain, Severe. Wrap-Up Follow-up: Return in about 2 weeks (around 12/26/2023). | Check-out note: Please schedule follow up krunaled, dahiana adrian In 2-3 weeks. Telemedicine: Patient location: HOME. I was in a hospital or clinic location. After connecting through [employer],patient was verified with two unique identifiers. Patient (or authorized legal novelties sales representative) was then informed that this was a Telemedicine visit and being conducted confidentially over secure lines. Methods to assure confidentiality were taken. Patient acknowledged consent and understanding of pr ivacy and security of the Telemedicine visit. The patient agreed to participate. documented in this encounter Nursing Notes * Alma Edwards CMA - 12/12/2023 8:38 AM EDT Pt on video call for 1m follow up Pt has no concerns at this time documented in this encounter Plan of Treatment Upcoming Encounters Date Type Department Care Team (Late st Contact Info) Description 12/31/2023 3:45 PM EDT Telemedicine Orthopaedics [facility] [address] [place] [address] Miguel Pelayo PA-C [address] [place] [address] 01/11/2024 11:20 AM EDT Office Visit Nutrition & Weight Management, [facility] [address] [place] [address] Beverley Velasco PA-C [address] [place] [address] 02/12/2024 10:30 AM EDT Telemedicine Psychology Neptali Sousa Clark [address] [place] [address] Fide [place], GASKET INSPECTOR [address] [facility] [place] [address] Scheduled Procedures Name Priority Associated Diagnoses Date/Ti me ESOPHAGOGASTRODUODENOSCOPY ( EGD), FLEXIBLE, TRANSORAL, DIAGNOSTIC Recall Shahid's esophagus with esophagitis ESOPHAGOGASTRODUODENOSCOPY ( EGD), FLEXIBLE, TRANSORAL, DIAGNOSTIC Epigastric pain Scheduled Referrals Name Type Priority Associated Diagnoses Orde r Schedule ADULT/PEDS PSYCHOLOGY REFERRAL OP Referral Within 3 days (urgent) JESSIE (generalized anxiety disorder) Chronic insomnia Grief Severe depression (HCC) Ordered: 12/12/2023 Health Maintenance Due Date Last Done Comments DISCUSS TOBACCO CESSATION (REFER TO SMARTSET #6774) 1970 HIV Screening 1985 Albumin/Creatinine Ratio 01/29/1988 [...] (HCC)- Primary Depressive disorder, not elsewhere classified Cyclic vomiting syndrome Persistent vomiting Intractable nausea and vomiting Persistent vomiting JESSIE (generalized anxiety disorder) Generalized anxiety disorder Chronic insomnia Insomnia, unspecified Grief Adjustment disorder with depressed mood Lumbar degenerative disc disease Degeneration of lumbar [...] the patient have Health Care Power of Toppiece Chopper? No Code Status History Code Status Date [...] Advance Directives occurred with: Patient Care Teams Industrial Sociologist Relationship Specialty Start Date End Date Eliza Mcfarland MD [address] [place] [address] PCP - General Family Medicine 12/09/21 documented as of this encounter"
--- OUTSIDE RECORDS SUMMARY | 2024-03-27 15:54 | External Medical Summary | Summary of Care ---
Author Name Unknown Organization [facility] Address [address] [place] [address] Phone [phone] Care Team Providers Care Bus Starter Name Role Phone Eliza Mcfarland MD Primary Care Prov ider Reason for Referral * Evaluate & Treat - Unlimited Visits (Within 10 days (routine)) - Authorized Specialty Diagnoses / Procedures Referred By Lorenzo ham Referred To Contact Physical Therapy / Physical Medicine And Rehab Diagnoses Primary osteoarthritis of left knee Miguel Pelayo PA-C [address] [facility] [address] Referral ID Status Reason Start Date Expiration Date Visits Requested Visits Authorized [id number] Authorized Specialty Services Required 11/28/[phone] Question Answer Referral Priority Within 10 days (routine) Where should this appointment be scheduled? Karen Comments Buxj-ye-nwfn joint space narrowing medial joint line Reason for Visit * Reason Comments NEW PATIENT Knee Pain L knee * Evaluate & Treat - Unlimited Visits (Within 10 days (routine)) - Authorized Specialty Diagnoses / Procedures Referred By Contstone t Referred To Contact Orthopaedic Surgery / Orthopedics Diagnoses Post-traumatic osteoarthritis of both knees Eliza Mcfarland MD [address] [place] [address] Warren Sahu DO [address] [facility] [place] [address] Referral ID Status Reason Start Date Expiration Date Visits Requested Visits Authorized [id number] Authorized Specialty Services Required 10/30/[phone] Encounter Details Date Type Department Care Team (Latest Contact Info) Description 11/28/2023 2:00 PM EDT Office Visit Orthopaedics [facility] [address] [place] [address] Miguel Pelayo PA-C [address] [place] [address] Primary osteoarthritis of left knee* Allergies Active [...] (Moderna) 04/24/2022 Pneumococcal Conjugate Vacci ne, 20-valent ([id number]) 03/31/2023,07/04/2022 Seasonal Influenza, Quadriva lent Hd (Fluzone [...] Current Outpatient Medications Medication Sig Dispense Refill Rckfpwhmbqs-Vbgyytrqx-Hkjuvl 200-62.5-25 MCG/ACT Aerosol Powder Breath Activated (Trelegy [...] performed by Klarissa Trevino MD at ENDOSCOPY [facility] EGD, FLEXIBLE, DIAGNOSTIC N/A 08/16/2023 biopsies show Shahid's esophagus/recall 3 years/EGD EGD, FLEXIBLE, DIAGNOSTIC 08/16/2023 ESOPHAGOGASTRODUODENOSCOPY (EGD), FLEXIBLE, TRANSORAL, DIAGNOSTIC performed by Ce Nielsen MD [facility] REMOVAL OF APPENDIX Review [...] of the left knee four views reveals yvzi-yh-krmi joint space narrowing along medial joint line. [...] called to verify the correctpatient, procedure, equipment, wan support specialist and site/side marked as required. Patient was prepped and draped in the usual sterile fashion. This chart was completed in part utilizing [employer] Speech Voice Recognition Software. Grammatical errors, random [...] Info) Description 12/11/2023 5:20 PM EDT Telemedicine [address] [address] Eliza Mcfarland MD [address] [place] [address] 12/31/2023 3:45 PM EDT Telemedicine Orthopaedics [facility] [address] [place] [address] Miguel Pelayo PA-C [address] [place] [address] 01/11/2024 11:20 AM EDT Office Visit Nutrition & Weight Management, [facility] [address] [place] [address] Beverley Velasco PA-C [address] [place] [address] Pending Results Name Type Priority Associated Diagnoses [...] Comments DISCUSS TOBACCO CESSATION (REFER TO SMARTSET #7481) 1970 HIV Screening 1985 Albumin/Creatinine Ratio 01/29/1988 [...] Procedure Name Priority Date/Time Associated Diagnosis Comments HI ARTHROCENTESIS ASPIR&/INJ MAJOR JT/BURSA W/O US Routine 11/28/2023 2:36 PM EDT Primary osteoarthritis of left knee documented in this encounter Results * HI ARTHROCENTESIS ASPIR&/INJ MAJOR JT/BURSA W/O US (11/28/2023 [...] to verify the correct patient, procedure, equipment, wan support specialist and site/side marked as required. Patient was [...] the patient have Health Care Power of Child Care Teacher? No Code Status History Code Status Date [...] Advance Directives occurred with: Patient Care Teams Bus Starter Relationship Specialty Start Date End Date Eliza Mcfarland MD [address] [place] [address] PCP - General Family Medicine 12/09/21 documented as of this encounter"
--- OUTSIDE RECORDS SUMMARY | 2024-03-27 15:54 | External Medical Summary | Summary of Care ---
Author Name Unknown Organization [facility] Address [address] [place] [address] Phone [phone] Care Team Providers Care Egg And Spice Mixer Name Role Phone Eliza Mcfarland MD Primary Care Prov ider Reason for Visit * Reason Onset Date Comments Forms Request 12/21/2023 Encounter Details Date Type Department Care Team ([facility] st Contact Info) Description 12/21/[address] [address] Eliza Mcfarland MD [address] [place] [address] Forms Request Allergies Active Allergy Reactions Criticality Noted Date Comments Codeine Nausea/vomiting High 03/20/2014 Morphine Itching,Other (Pleas e comment),Nausea/vomit ing 05/24/2017 Naloxone Nausea/vomiting 04/07/2022 Other reaction(s): rash/hives Tramadol Hives High 03/20/2014 Hydrocodone-Acetamino phen Nausea/vomiting 12/09/2021 Hives and nausea documented as of this encounter (statuses as of 12/26/2023) Medications Medication Sig Dispensed Refills Start Date [...] or vomiting 12 Tablet 0 12/12/2023 Active oxyCODONE-Acetaminop hen 10-325 MG Oral [...] as of this encounter (statuses as of 12/26/2023) Active Problems Problem Noted Date Diagnosed Date Gastro-esophageal reflux disease without esophag itis 09/18/2023 Chronic obstructive pulmonary disease 09/18/2023 Dependence on nocturnal oxygen therapy 4 Food insecurity 08/20/2023 Overview: Per [facility] Protocol Current smoker 06/19/2023 Inflammatory [...] as of this encounter (statuses as of 12/26/2023) Resolved Problems Problem Noted Date Diagnosed Date [...] as of this encounter (statuses as of 12/26/2023) Immunizations Name Administration Dates Next Due COVID-19, MRNA-LNP, 23-24, P F, 30 MCG/0.3 mL, 12 YRS AND ABOVE, IM (PFIZER-Comirnaty) 06/15/2023 COVID-19, MRNA-LNP, 23-24, P F, 50 MCG/0.5 mL, 12 YRS AND ABOVE, IM (MODERNA-Spikevax) 07/24/2023 Covid-19, Mrna, Lnp-s, Pf, B ivalent, 50 Mcg, IM, 12 yrs and above (Moderna) 04/24/2022 Pneumococcal Conjugate Vacci ne, 20-valent ([id number]) 03/31/2023,07/04/2022 Seasonal Influenza, Quadriva lent Hd (Fluzone [...] Telephone Encounter - Beryl Patterson OSA - 12/26/2023 10:20 AM EDT Form signed. Will be faxed back today. * Telephone Encounter - Beryl Patterson OSA - 12/25/2023 10:58 AM EDT Fax received and given to PCP. * Telephone Encounter - Joseline Patterson LPN - 12/25/2023 7:43 AM EDT Will have front watch for fax. * Telephone Encounter - Ghazala Ca OSA - 12/21/2023 12:14 PM EDT Al from [facility] called asking for Dr. Mcfarland received the order/form for this pt's oxygen. I couldn't see anything about this so they are going to fax it over again. [facility] documented in this encounter Plan of Treatment Upcoming Encounters Date Type Department Care Team (Late st Contact Info) Description 12/31/2023 3:45 PM EDT Telemedicine Orthopaedics [facility] [address] [place] [address] Miguel Pelayo PA-C [address] [place] [address] 01/11/2024 11:20 AM EDT Office Visit Nutrition & Weight Management, [facility] [address] [place] [address] Beverley Velasco PA-C [address] [place] [address] 02/12/2024 10:30 AM EDT Telemedicine Psychology Neptali Sousa, [place] [address] [place] [address] Fide Dale, SUPERVISOR [employer] [address] [place] [address] Scheduled Procedures Name Priority Associated Diagnoses Date/Ti me ESOPHAGOGASTRODUODENOSCOPY ( EGD), FLEXIBLE, TRANSORAL, DIAGNOSTIC Recall Shahid's esophagus with esophagitis ESOPHAGOGASTRODUODENOSCOPY ( EGD), FLEXIBLE, TRANSORAL, DIAGNOSTIC Epigastric pain Health Maintenance Due Date Last Done Comments DISCUSS TOBACCO CESSATION (REFER TO SMARTSET #[id number]) 1970 HIV Screening 1985 Albumin/Creatinine Ratio 01/29/1988 [...] the patient have Health Care Power of Protein Purification Scientist? No Code Status History Code Status Date [...] Advance Directives occurred with: Patient Care Teams Egg And Spice Mixer Relationship Specialty Start Date End Date Eliza Mcfarland MD [address] [place] [address] PCP - General Family Medicine 12/09/21 documented as of this encounter
--- OUTSIDE RECORDS SUMMARY | 2024-03-27 15:55 | External Medical Summary | Summary of Care ---
Author Name Unknown Organization [facility] Address [address] [place] [address] Phone [phone] Care Team Providers Care Cartographic Drafter Name Role Phone Eliza Mcfarland MD Primary Care Prov ider Encounter Details Date Type Department Care Team (Late st Contact Info) Description 11/08/2023 2:45 PM EDT Scheduled Telephone Care Coordination and Integration [address] [place] [address] Kiersten [facility] [address] [place], [place] [phone] Allergies Active Allergy Reactions Criticality Noted Date Comments Codeine Nausea/vomiting High 03/20/2014 Naloxone Nausea/vomiting 04/07/2022 Other reaction(s): rash/hives Tramadol Hives High 03/20/2014 Hydrocodone-Acetaminoph en Nausea/vomiting 12/09/2021 Hives and nausea documented as of this encounter (statuses as of 11/08/2023) Medications Medication Sig Dispensed Refills Start Date [...] as of this encounter (statuses as of 11/08/2023) Active Problems Problem Noted Date Diagnosed Date Gastro-esophageal reflux disease without esophag itis 09/18/2023 Chronic obstructive pulmonary disease 09/18/2023 Dependence on nocturnal oxygen therapy Food insecurity 08/20/2023 Overview: Per [email or web address] Protocol Current smoker 06/19/2023 Inflammatory [...] as of this encounter (statuses as of 11/08/2023) Resolved Problems Problem Noted Date Diagnosed Date [...] as of this encounter (statuses as of 11/08/2023) Immunizations Name Administration Dates Next Due COVID-19, MRNA-LNP, 23-24, P F, 30 MCG/0.3 mL, 12 YRS AND ABOVE, IM (PFIZER-Comirnaty) 06/15/2023 COVID-19, MRNA-LNP, 23-24, P F, 50 MCG/0.5 mL, 12 YRS AND ABOVE, IM (MODERNA-Spikevax) 07/24/2023 Covid-19, Mrna, Lnp-s, Pf, B ivalent, 50 Mcg, IM, 12 yrs and above (Moderna) 04/24/2022 Pneumococcal Conjugate Vacci ne, 20-valent ([id number]) 03/31/2023,07/04/2022 Seasonal Influenza, Quadriva lent Hd (Fluzone [...] as of this encounter Progress Notes * iKersten Stein [facility] - 11/08/2023 3:22 PM EDT Telemedicine visit: No [facility] Variety Performer (VI) documentation: Juanita call Patient advised CHW that she has had headache times 3 days since she started new medication. CHW advised patient I would reach out to Miky Hendricks CM to make him aware. Patient agreed. Patient did advise CHW she was at eye doctor appt, call was quick documented in this encounter Plan of Treatment Upcoming Encounters Date Type Department Care Team (Late st Contact Info) Description 11/29/2023 10:00 AM EDT [facility] [address] [place] [address] 12/06/2023 9:40 AM EDT Telemedicine [facility] [address] [place] [address] Eliza Mcfarland MD [address] [place] [address] 05/07/2024 11:00 AM EDT Office Visit Nutrition & Weight Management, [facility] [address] [place] [address] Beverley Velasco PA-C [address] [place] [address] Scheduled Procedures Name Priority Associated Diagnoses Date/Ti me ESOPHAGOGASTRODUODENOSCOPY ( EGD), FLEXIBLE, TRANSORAL, DIAGNOSTIC Recall Shahid's esophagus with esophagitis ESOPHAGOGASTRODUODENOSCOPY ( EGD), FLEXIBLE, TRANSORAL, DIAGNOSTIC Epigastric pain Health Maintenance Due Date Last Done Comments DISCUSS TOBACCO CESSATION (REFER TO SMARTSET #9516) 1970 HIV Screening 1985 Albumin/Creatinine Ratio 01/29/1988 [...] the patient have Health Care Power of Rolloff Truck Driver? No Code Status History Code Status Date [...] Advance Directives occurred with: Patient Care Teams Cartographic Drafter Relationship Specialty Start Date End Date Eliza Mcfarland MD [address] [place] [address] PCP - General Family Medicine 12/09/21 documented as of this encounter
--- OUTSIDE RECORDS SUMMARY | 2024-03-27 15:55 | External Medical Summary | Summary of Care ---
Author Name Unknown Organization [facility] Address [address] [facility] [place] [address] Phone [phone] Care Team Providers Care Pulp And Paper Tester Name Role Phone Eliza Mcfarland MD [...] (Moderna) 04/24/2022 Pneumococcal Conjugate Vacci ne, 20-valent ([id number]) 03/31/2023,07/04/2022 Seasonal Influenza, Quadriva lent Hd (Fluzone [...] 11/21/2023 2:00 PM EDT Office Visit Orthopaedics [facility] [address] [place] [address] Miguel Pelayo PA-C [address] [place] [address] 11/29/2023 10:00 AM EDT Imaging [facility] 2nd Floor Cardiology, [place] [address] [place] [address] 12/06/2023 9:40 AM EDT Telemedicine Family [facility] [address] [place] [address] Eliza Mcfarland MD [address] [place] [address] 05/07/2024 11:00 AM EDT Office Visit Nutrition & Weight Management, [facility] [address] [place] [address] Beverley Velasco PA-C [address] [place] [address] Scheduled Procedures Name Priority Associated Diagnoses Date/Ti me ESOPHAGOGASTRODUODENOSCOPY ( EGD), FLEXIBLE, TRANSORAL, DIAGNOSTIC Recall Shahid's esophagus with esophagitis ESOPHAGOGASTRODUODENOSCOPY ( EGD), FLEXIBLE, TRANSORAL, DIAGNOSTIC Epigastric pain Health Maintenance Due Date Last Done Comments DISCUSS TOBACCO CESSATION (REFER TO SMARTSET #[id number]) 1970 HIV Screening 1985 Albumin/Creatinine Ratio 01/29/1988 [...] the patient have Health Care Power of Golf Course Assistant? No Code Status History Code Status Date [...] Advance Directives occurred with: Patient Care Teams Pulp And Paper Tester Relationship Specialty Start Date End Date Eliza Mcfarland MD [address] [place] [address] PCP - General Family Medicine 12/09/21 documented as of this encounter
--- OUTSIDE RECORDS SUMMARY | 2024-03-27 15:55 | External Medical Summary | Summary of Care ---
Author Name Unknown Organization [facility] Address [address] [place] [address] Phone [phone] Care Team Providers Care Medical Office Asst Name Role Phone Eliza Mcfarland MD Primary Care Prov ider Reason for Visit * Reason Comments Medication Refill Encounter Details Date Type Department Care Team (Late st Contact Info) Description 10/19/[address] [address] Eliza Mcfarland MD [address] [place] [phone] Lumbar degenerative disc disease; Chronic pain syndrome Allergies Active Allergy Reactions Criticality Noted Date Comments Codeine Nausea/vomiting High 03/20/2014 Naloxone Nausea/vomiting 04/07/2022 Other reaction(s): rash/hives Tramadol Hives High 03/20/2014 Hydrocodone-Acetaminoph en Nausea/vomiting 12/09/2021 Hives and nausea documented as of this encounter (statuses as of 10/19/2023) Medications Medication Sig Dispensed Refills Start Date End Date Status Fluticasone-Umeclid in-Vilant 200-62.5-25 MCG/ACT Aerosol Powder Breath Activated (Trelegy Ellipta) Inhale 1 Puff by mouth daily. 60 Blister Dosing Unit 11 3 Active Sucralfate 1 GM/10ML Oral Suspension (Carafate) Take 10 mL by mouth in the morning and 10 mL at noon and 10 mL in the evening and 10 mL before bedtime. 420 mL 5 3 Active Additional Information Patient taking differently:1 g Oral QID(AM/NOON/PM/HS),Indications: as needed, Reported on 08/03/2023 Famotidine 20 MG Oral Tablet (Pepcid) Take 1 Tablet by mouth in the morning and 1 Tablet before bedtime. 180 Tablet 3 3 Active Meclizine HCl 25 MG Oral Tablet (Antivert) Take 1-2 Tablets by mouth 2 times a day as needed for Nausea. 60 Tablet 1 3 Active Aprepitant 40 MG Oral Capsule 1 capsule once daily on Day 2 and Day 3 of vomiting 10 Capsule 4 3 Active Ventolin HFA 108 (90 Base) MCG/ACT Inhalation Aerosol Solution Inhale 2 Puffs by mouth every 4 hours as needed for Shortness of Breath or Wheezing. 18 g 2 3 Active Azithromycin 250 MG Oral Tablet (Zithromax) Take 2 tabs by mouth on the first day, then 1 tab daily on days two through five 6 Tablet 0 3 Active Additional Information Patient not taking.Reported on 08/03/2023 Eszopiclone 2 MG Oral Tablet (Lunesta) Take 1 Tablet by mouth at bedtime. for sleep 30 Tablet 2 3 Active Additional Information Patient taking differently:2 mg Oral HS, for sleep,Indications: as needed, Reported on 08/03/2023 Pantoprazole Sodium 40 MG Oral Tablet Delayed Release (Protonix) 1 tablet daily at least 30 min prior to breakfast 90 Tablet 3 4 Active Spikevax 50 MCG/0.5ML Intramuscular Suspension 0 3 Active Comirnaty 30 MCG/0.3ML Intramuscular Suspension 0 3 Active Aprepitant 80 MG Oral Capsule (Emend) Take 1 capsule by mouth one time daily on Day 1 of vomiting 10 Capsule 2 4 Active Prochlorperazine Maleate 10 MG Oral Tablet (Compazine) Take 1 Tablet by mouth every 6 hours as needed for Nausea. 30 Tablet 2 4 Active Lisinopril 40 MG Oral Tablet Take 1 Tablet by mouth in the morning. 90 Tablet 2 4 Active clonazePAM 1 MG Oral Tablet (KlonoPIN) Take 1 Tablet by mouth in the morning and 1 Tablet before bedtime. 60 Tablet 3 4 Active hydrALAZINE HCl 50 MG Oral Tablet (Apresoline) Take 1 Tablet by mouth 2 times a day. 180 Tablet 2 4 Active Ondansetron 4 MG Oral Tablet Disintegrating (Zofran) 1 tab(s) By Mouth three times daily for 5 days as needed for nausea or vomiting. 15 Tablet 0 4 Active Promethegan 50 MG Rectal Suppository (Promethazine HCl) 1 supp Per Rectum Q6H,PRN:vomiting 12 Suppository 0 4 Active Pantoprazole Sodium 40 MG Oral Tablet Delayed Release (Protonix) 1 tab(s) By Mouth Daily,x30 Day(s) 30 Tablet 0 4 Active oxyCODONE-Acetamino phen 10-325 MG Oral Tablet (Percocet)Indicatio ns:Lumbar degenerative disc disease,Chronic pain syndrome Take 1 Tablet by mouth every 6 hours as needed for Pain, Moderate or Pain, Severe. 120 Tablet 0 4 Active oxyCODONE-Acetamino phen 10-325 MG Oral Tablet (Percocet)Indicatio ns:Lumbar degenerative disc disease,Chronic pain syndrome Take 1 Tablet by mouth every 6 hours as needed for Pain, Moderate or Pain, Severe. 120 Tablet 0 4 10/19/19 24 Discontinu ed(Refill) documented as of this encounter (statuses as of 10/19/2023) Active Problems Problem Noted Date Diagnosed Date Gastro-esophageal reflux disease without esophag itis 09/18/2023 Chronic obstructive pulmonary disease 09/18/2023 Dependence on nocturnal oxygen therapy 4 Food insecurity 08/20/2023 Overview: Per [facility] [...] as of this encounter (statuses as of 10/19/2023) Resolved Problems Problem Noted Date Diagnosed Date Resolved Date Prediabetes 12/26/2022 01/25/2023 Acute renal failure 12/21/2022 12/27/19 23 Sepsis 09/14/2022 12/26/2022 GEORGINA (acute kidney injury) 09/14/2022 History of hepatitis C 07/25/202206/18 Hypertension 06/12/2022 12/26/2022 Nausea 06/12/2022 09/18/2023 Chronic narcotic use 05/24/2017 022 Tobacco abuse disorder 05/23/201707/04 Nausea, vomiting and diarrhea 12/06/2014 09/18/2023 HTN, goal below 130/80 12/06/201412/26 TERMINATED MEDICATION USAGE AGREEMENT 07/08/2014 06/08/2022 Overview: Breech of narcotics agreement prior for oxycodone/hydrocodone 2013 New agreement for Clonazepam only entered on 04/07/22. Chronic hepatitis C virus infection 07/25/2022 Overview: Treated with Interferon HCV RNA negative as of 2016 documented as of this encounter (statuses as of 10/19/2023) Immunizations Name Administration Dates Next Due COVID-19, MRNA-LNP, 23-24, P F, 30 MCG/0.3 mL, 12 YRS AND ABOVE, [facility] 06/15/2023 COVID-19, MRNA-LNP, 23-24, P F, 50 MCG/0.5 mL, 12 YRS AND ABOVE, IM (MODERNA-Spikevax) 07/24/2023 Covid-19, Mrna, Lnp-s, Pf, B ivalent, 50 Mcg, IM, 12 yrs and above (Moderna) 04/24/2022 Pneumococcal Conjugate Vacci ne, 20-valent ([id number]) 03/31/2023,07/04/2022 Seasonal Influenza, Quadriva lent Hd (Fluzone [...] encounter Miscellaneous Notes * Telephone Encounter - Michelle Burton PHARM Tech - 10/19/2023 4:35 PM EST Patient calling to check on status of oxycodone. Explained that there is nothing on script about the and waiting until then to fill . Thank you, Michelle Burton Supply Chain Manager [facility] ([facility]) 10/19/2023,4:35 PM * Telephone Encounter - Andreea Stein PA-C - 10/19/2023 4:13 PM EST Signed Prescriptions: Disp Refills oxyCODONE-Acetaminophen 10-325 MG Oral Tab*120 Ta*0 Sig: Take 1 Tablet by mouth every 6 hours as needed for Pain, Moderate or Pain, Severe. Authorizing Provider: ANDREEA STEIN * Telephone Encounter - Andreea Stein PA-C - 10/19/2023 4:13 PM EST Signed Prescriptions: Disp Refills oxyCODONE-Acetaminophen 10-325 MG Oral Tab*120 Ta*0 Sig: Take 1 Tablet by mouth every 6 hours as needed for Pain, Moderate or Pain, Severe. Authorizing Provider: ANDREEA STEIN * Telephone Encounter - Courtney Sims [facility] - 10/19/2023 2:34 PM EST Pending Prescriptions: Disp Refills oxyCODONE-Acetaminophen 10-325 MG Oral Tab*120 Ta*0 Sig: Take 1 Tablet by mouth every 6 hours as needed for Pain, Moderate or Pain, Severe. * Telephone Encounter - Courtney Sims [facility] - 10/19/2023 2:33 PM EST I have reviewed the patients controlled substance dispensing history in the Prescription Drug Monitoring Program in compliance with the [facility] regulations before prescribing a controlled substance. PDMP checked on 10/19/2023. Pending Prescriptions: Disp Refills oxyCODONE-Acetaminophen 10-325 MG Oral Ta*120 Ta*0 Sig: Take 1 Tablet by mouth every 6 hours as needed for Pain, Moderate or Pain, Severe. Last Visit: 06/18/2023 (in office), 09/18/2023 (telemedicine) Next Visit: 10/30/2023 Date medication was last filled: 09/21/23 Date medication is due for refill: 10/20/23 Pharmacy: [facility] Is this request for a controlled [...] testing. Please approve if appropriate. Thank you, Courtney Sims PharmD Clinical Pharmacist [facility] ([facility]) (Formerly [facility]) [phone] 10/19/2023, 2:33 PM * Telephone Encounter - Alena Crockett PHARM Tech - 10/19/2023 2:24 PM EST Pt requesting HIGH PRIORITY Did you pend patient's preferred pharmacy and medication before forwarding?yes Pharmacy: [facility] Pending Prescriptions: Disp Refills oxyCODONE-Acetaminophen 10-325 MG Oral Ta*120 Ta*0 Sig: Take 1 Tablet by mouth every 6 hours as needed for Pain, Moderate or Pain, Severe. Last Visit: 06/18/2023 (in office), 09/18/2023 (telemedicine) Next Visit: 10/30/2023 If no future appointments scheduled, and last appointment is greater than a year ago, please schedule patient for a follow-up appointment Last date the medication was ordered: 09/18/2023 Is this request for a controlled substance?Yes, What was the last refill date 09/18/2023 w/ quantity 120 and dosage 10-325 mgand Urine Drug Screen was completed Urine Drug Screen: Results for orders placed [...] 10:57 AM HGBA1C 5.7 05/06/2021 01:45 PM documented in this encounter Plan of Treatment Upcoming Encounters Date Type Department Care Team (Late st Contact Info) Description 10/30/2023 6:20 PM EDT Telemedicine [address] [address] Eliza Mcfarland MD [address] [place] [phone] 11/29/2023 10:00 AM EDT Imaging [facility] 2nd Floor Cardiology, [address] [place] [address] Scheduled Procedures Name Priority Associated Diagnoses Date/Ti me ESOPHAGOGASTRODUODENOSCOPY ( EGD), FLEXIBLE, TRANSORAL, DIAGNOSTIC Recall Shahid's esophagus with esophagitis ESOPHAGOGASTRODUODENOSCOPY ( EGD), FLEXIBLE, TRANSORAL, DIAGNOSTIC Epigastric pain Health Maintenance Due Date Last Done Comments DISCUSS TOBACCO CESSATION (REFER TO SMARTSET #5610) 1970 HIV Screening 1985 Albumin/Creatinine Ratio 01/29/1988 [...] PAST YEAR FOR COPD 08/16/2024 08/16/2023 GFR 09/12/2024 09/12/2023, 08/15, 09/11/2023, Additional history exists Diabetes Screening 02/12/2026 02/12/2023, [...] the patient have Health Care Power of Manufacturing Plant Manager? No Code Status History Code Status Date Activated Date Inactivated Comments Full Code 09/14/2022 7:32 PM 09/15/2022 8:07 PM This o rder reflects the patients wishes and were consensually [...] Advance Directives occurred with: Patient Care Teams Medical Office Asst Relationship Specialty Start Date End Date Eliza Mcfarland MD [address] [place] [phone] PCP - General Family Medicine 12/09/21 documented as of this encounter
--- OUTSIDE RECORDS SUMMARY | 2024-03-27 15:55 | External Medical Summary | Summary of Care ---
Author Name Unknown Organization [facility] Address [address] [facility] [place] [address] Phone [phone] Care Team Providers Care Systems Integration Analyst Name Role Phone Eliza Mcfarland MD Primary Care Prov ider Encounter Details Date Type Department Care Team (Late st Contact Info) Description 10/09/2023 Population Health External Data Unspecified Department Allergies Active Allergy Reactions Criticality Noted Date Comments Codeine Nausea/vomiting High 03/20/2014 Naloxone Nausea/vomiting 04/07/2022 Other reaction(s): rash/hives Tramadol Hives High 03/20/2014 Hydrocodone-Acetaminoph en Nausea/vomiting 12/09/2021 Hives and nausea documented as of this encounter (statuses as of 10/09/2023) Medications Medication Sig Dispensed Refills Start Date End Date Status Fluticasone-Umeclidi n-Vilant 200-62.5-25 MCG/ACT Aerosol Powder Breath Activated (Trelegy Ellipta) Inhale 1 Puff by mouth daily. 60 Blister Dosing Unit 11 01/23/2023 Active Sucralfate 1 GM/10ML Oral Suspension (Carafate) Take 10 mL by mouth in the morning and 10 mL at noon and 10 mL in the evening and 10 mL before bedtime. 420 mL 5 01/23/2023 Active Additional Information Patient taking differently:1 g Oral QID(AM/NOON/PM/HS),Indications: as needed, Reported on 08/03/2023 Famotidine 20 MG Oral Tablet (Pepcid) Take 1 Tablet by mouth in the morning and 1 Tablet before bedtime. 180 Tablet 3 01/23/2023 Active Meclizine HCl 25 MG Oral Tablet (Antivert) Take 1-2 Tablets by mouth 2 times a day as needed for Nausea. 60 Tablet 1 02/06/2023 Active Aprepitant 40 MG Oral Capsule 1 capsule once daily on Day 2 and Day 3 of vomiting 10 Capsule 4 03/05/2023 Active Ventolin HFA 108 (90 Base) [...] min prior to breakfast 90 Tablet 3 08/24/2023 Active Spikevax 50 MCG/0.5ML Intramuscular Suspension 0 07/24/2023 Active Comirnaty 30 MCG/0.3ML Intramuscular Suspension 0 06/15/2023 Active Aprepitant 80 MG Oral Capsule (Emend) Take 1 capsule by mouth one time daily on Day 1 of vomiting 10 Capsule 2 09/18/2023 Active Prochlorperazine Maleate 10 MG Oral Tablet (Compazine) Take 1 Tablet by mouth every 6 hours as needed for Nausea. 30 Tablet 2 09/18/2023 Active oxyCODONE-Acetaminop hen 10-325 MG Oral Tablet (Percocet)Indication s:Lumbar degenerative disc disease,Chronic pain syndrome Take 1 Tablet by mouth every 6 hours as needed for Pain, Moderate or Pain, Severe. 120 Tablet 0 09/18/2023 Active Lisinopril 40 MG Oral Tablet [...] or vomiting. 15 Tablet 0 10/07/2023 Active documented as of this encounter (statuses as of 10/09/2023) Active Problems Problem Noted Date Diagnosed Date Gastro-esophageal reflux disease without esophag itis 09/18/2023 Chronic obstructive pulmonary disease 09/18/2023 Dependence on nocturnal oxygen therapy Food insecurity 08/20/2023 Overview: Per [facility] Protocol Current smoker 06/19/2023 Inflammatory [...] as of this encounter (statuses as of 10/09/2023) Resolved Problems Problem Noted Date Diagnosed Date [...] as of this encounter (statuses as of 10/09/2023) Immunizations Name Administration Dates Next Due COVID-19, MRNA-LNP, 23-24, P F, 30 MCG/0.3 mL, 12 YRS AND ABOVE, IM (PFIZER-Comirnaty) 06/15/2023 COVID-19, MRNA-LNP, 23-24, P F, 50 MCG/0.5 mL, 12 YRS AND ABOVE, IM (MODERNA-Spikevax) 07/24/2023 Covid-19, Mrna, Lnp-s, Pf, B ivalent, 50 Mcg, IM, 12 yrs and above (Moderna) 04/24/2022 Pneumococcal Conjugate Vacci ne, 20-valent ([id number]) 03/31/2023,07/04/2022 Seasonal Influenza, Quadriva lent Hd (Fluzone [...] Care Team (Late st Contact Info) Description 10/11/2023 12:30 PM EST Office Visit Gastroenterology, [facility] [address] [place] [address] Destiney Adams CRNP [address] [facility] [place] [address] 10/11/2023 3:00 PM EST Telemedicine [facility] [address] [place] [address] Eliza Mcfarland MD [address] [place] [address] 11/29/2023 10:00 AM EDT Imaging [facility] 2nd Floor Cardiology, [place] [address] [place] [address] Scheduled Procedures Name Priority Associated Diagnoses Date/Ti me ESOPHAGOGASTRODUODENOSCOPY ( EGD), FLEXIBLE, TRANSORAL, DIAGNOSTIC Recall Shahid's esophagus with esophagitis ESOPHAGOGASTRODUODENOSCOPY ( EGD), FLEXIBLE, TRANSORAL, DIAGNOSTIC Epigastric pain Health Maintenance Due Date Last Done Comments DISCUSS TOBACCO CESSATION (REFER TO SMARTSET #3492) 1970 HIV Screening 1985 Albumin/Creatinine Ratio 01/29/1988 [...] the patient have Health Care Power of Us Marketing Director? No Code Status History Code Status [...] Advance Directives occurred with: Patient Care Teams Systems Integration Analyst Relationship Specialty Start Date End Date Eliza Mcfarland MD [address] [place] [address] PCP - General Family Medicine 12/09/21 documented as of this encounter
--- OUTSIDE RECORDS SUMMARY | 2024-03-27 15:55 | External Medical Summary | Summary of Care ---
Author Name Unknown Organization [facility] Address [address] [facility] [place] [address] Phone [phone] Care Team Providers Care Aircraft Launch And Recovery Technician Name Role Phone Eliza Mcfarland MD Primary Care Prov ider Encounter Details Date Type Department Care Team (Late st Contact Info) Description 10/15/2023 Population Health External Data Unspecified Department Allergies Active Allergy Reactions Criticality Noted Date Comments Codeine Nausea/vomiting High 03/20/2014 Naloxone Nausea/vomiting 04/07/2022 Other reaction(s): rash/hives Tramadol Hives High 03/20/2014 Hydrocodone-Acetaminoph en Nausea/vomiting 12/09/2021 Hives and nausea documented as of this encounter (statuses as of 10/15/2023) Medications Medication Sig Dispensed Refills Start Date [...] for Nausea. 30 Tablet 2 09/18/2023 Active oxyCODONE-Acetamino phen 10-325 MG Oral Tablet [...] or vomiting. 15 Tablet 0 10/07/2023 Active Promethegan 50 MG Rectal Suppository (Promethazine HCl) 1 supp Per Rectum Q6H,PRN:vomiting 12 Suppository 0 10/11/2023 Active Pantoprazole Sodium 40 MG Oral Tablet Delayed Release (Protonix) 1 tab(s) By Mouth Daily,x30 Day(s) 30 Tablet 0 10/11/2023 Active documented as of this encounter (statuses as of 10/15/2023) Active Problems Problem Noted Date Diagnosed Date [...] as of this encounter (statuses as of 10/15/2023) Resolved Problems Problem Noted Date Diagnosed Date [...] as of this encounter (statuses as of 10/15/2023) Immunizations Name Administration Dates Next Due COVID-19, MRNA-LNP, 23-24, P F, 30 MCG/0.3 mL, 12 YRS AND ABOVE, IM (PFIZER-Comirnaty) 06/15/2023 COVID-19, MRNA-LNP, 23-24, P F, 50 MCG/0.5 mL, 12 YRS AND ABOVE, IM (MODERNA-Spikevax) 07/24/2023 Covid-19, Mrna, Lnp-s, Pf, B ivalent, 50 Mcg, IM, 12 yrs and above (Moderna) 04/24/2022 Pneumococcal Conjugate Vacci ne, 20-valent ([id number]) 03/31/2023,07/04/2022 Seasonal Influenza, Quadriva lent Hd (Fluzone [...] Info) Description 11/29/2023 10:00 AM EDT Imaging [facility] 2nd Floor Cardiology, [address] [place] [address] Scheduled Procedures Name Priority Associated Diagnoses Date/Ti me ESOPHAGOGASTRODUODENOSCOPY ( EGD), FLEXIBLE, TRANSORAL, DIAGNOSTIC Recall Shahid's esophagus with esophagitis ESOPHAGOGASTRODUODENOSCOPY ( EGD), FLEXIBLE, TRANSORAL, DIAGNOSTIC Epigastric pain Health Maintenance Due Date Last Done Comments DISCUSS TOBACCO CESSATION (REFER TO SMARTSET #5608) 1970 HIV Screening 1985 Albumin/Creatinine Ratio 01/29/1988 [...] the patient have Health Care Power of Program Schedule Clerk? No Code Status History Code Status Date [...] Advance Directives occurred with: Patient Care Teams Aircraft Launch And Recovery Technician Relationship Specialty Start Date End Date Eliza Mcfarland MD [address] [place] [phone] PCP - General Family Medicine 12/09/21 documented as of this encounter
--- OUTSIDE RECORDS SUMMARY | 2024-03-27 15:55 | External Medical Summary | Summary of Care ---
Author Name Unknown Organization [facility] Address [address] [place] [address] Phone [phone] Care Team Providers Care Chin Strap Maker Name Role Phone Eliza Mcfarland MD Primary Care Prov ider Reason for Visit * Reason Onset Date Comments Other 10/15/2023 Encounter Details Date Type Department Care Team (Late st Contact Info) Description 10/15/2023 Telephone Care Coordination and Integration [address] [place] [employer], [place] [phone] Marion Estevez OSA [address] [place] [employer], [place] [phone] Other Allergies Active Allergy Reactions Criticality Noted Date [...] therapy 4 Food insecurity 08/20/2023 Overview: Per [facility] Protocol Current smoker 06/19/2023 Inflammatory liver [...] (Moderna) 04/24/2022 Pneumococcal Conjugate Vacci ne, 20-valent ([id number]) 03/31/2023,07/04/2022 Seasonal Influenza, Quadriva lent Hd (Fluzone [...] encounter Miscellaneous Notes * Telephone Encounter - Marion Estevez OSA - 10/15/2023 11:21 AM EST Recieved a PC form the member looking to speak to her CM Miky Hancock Member states she is wanting to let him know she missed her appointment the other day because she has the Rhino Virus. She said she is going to reschedule with the GI Doctor. CM was available and has me transfer the caller to him at [phone] documented in this encounter Plan of Treatment Upcoming Encounters Date Type Department Care Team (Late st Contact Info) Description 10/30/2023 6:20 PM EDT Telemedicine [facility] [address] [place] [address] Eliza Mcfarland MD [address] [place] [phone] 11/29/2023 10:00 AM EDT Imaging [facility] 2nd Floor Cardiology, [address] [place] [address] Scheduled Procedures Name Priority Associated Diagnoses Date/Ti me ESOPHAGOGASTRODUODENOSCOPY ( EGD), FLEXIBLE, TRANSORAL, DIAGNOSTIC Recall Shahid's esophagus with esophagitis ESOPHAGOGASTRODUODENOSCOPY ( EGD), FLEXIBLE, TRANSORAL, DIAGNOSTIC Epigastric pain Health Maintenance Due Date Last Done Comments DISCUSS TOBACCO CESSATION (REFER TO SMARTSET #2247) 1970 HIV Screening 1985 Albumin/Creatinine Ratio 01/29/1988 [...] the patient have Health Care Power of Stippler? No Code Status History Code Status Date [...] Advance Directives occurred with: Patient Care Teams Chin Strap Maker Relationship Specialty Start Date End Date Eliza Mcfarland MD [address] [place] [address] PCP - General Family Medicine 12/09/21 documented as of this encounter
--- OUTSIDE RECORDS SUMMARY | 2024-03-27 15:55 | External Medical Summary | Summary of Care ---
Author Name Unknown Organization [facility] Address [address] [place] [address] Phone [phone] Care Team Providers Care Slitter Helper Name Role Phone Eliza Mcfarland MD Primary Care Prov ider Reason for Referral * Evaluate & Treat - Unlimited Visits (Within 10 days (routine)) - Authorized Specialty Diagnoses / Procedures Referred By Contac t Referred To Contact Orthopaedic Surgery / Orthopedics Diagnoses Post-traumatic osteoarthritis of both knees Eliza Mcfarland MD [address] [place] [address] [address] Sahu, [address] [place] [address] Referral ID Status Reason Start Date Expiration Date Visits Requested Visits Authorized [id number] Authorized Specialty Services Required 10/30/2023 999 999 Question Answer Referral Priority Within 10 days (routine) Where should this appointment be scheduled? [facility] What body part is the patient being seen for? Thigh/Knee What condition is the patient being seen for? Arthritis including related infection Comments Request for Sunday or Sunday Appt. Evaluation for surgery. * Evaluate & Treat - Unlimited Visits (Within 10 days (routine)) - Authorized Specialty Diagnoses / Procedures Referred By Contact Referred To Contact GI NUTRITION/IM / Gastroenterology Diagnoses Cyclic vomiting syndrome Class 1 obesity due to excess calories with serious comorbidity and body mass index (BMI) of 30.0 to 30.9 in adult Eliza Mcfarland MD [address] [place] [address] Referral ID Status Reason Start Date Expiration Date Visits Requested Visits Authorized [id number] Authorized Specialty Services Required 10/30/2023 999 999 Question Answer Referral Priority Within 10 days (routine) Where should this appointment be scheduled? [facility] For what condition is the patient being seen? Other Encounter Details Date Type Department Care Team (Late st Contact Info) Description 10/30/2023 6:20 PM EDT Telemedicine [facility], [address] [address] Eliza Mcfarland MD [address] [place] [address] Post-traumatic osteoarthritis of both knees*; Dependence on nocturnal oxygen therapy; Cyclic vomiting syndrome; Class 1 obesity due to excess calories with serious comorbidity and body mass index (BMI) of 30.0 to 30.9 in adult; Lumbar degenerative disc disease; Chronic pain syndrome Allergies Active Allergy Reactions Criticality Noted Date Comments Codeine Nausea/vomiting High 03/20/2014 Naloxone Nausea/vomiting 04/07/2022 Other reaction(s): rash/hives Tramadol Hives High 03/20/2014 Hydrocodone-Acetaminoph en Nausea/vomiting 12/09/2021 Hives and nausea documented as of this encounter (statuses as of 11/05/2023) Medications Medication Sig Dispensed Refills Start Date [...] 08/03/2023 Comirnaty 30 MCG/0.3ML Intramuscular Suspension 0 3 [...] or vomiting. 15 Tablet 0 4 Active Pantoprazole Sodium 40 MG Oral Tablet Delayed Release (Protonix) 1 tab(s) By Mouth Daily,x30 Day(s) 30 Tablet 0 4 Active Vortioxetine HBr 5 MG Oral Tablet (Trintellix) Take 1 Tablet by mouth daily. 30 Tablet 2 4 Active Sucralfate 1 GM/10ML Oral Suspension (Carafate) Take 10 mL by mouth in the morning and 10 mL at noon and 10 mL in the evening and 10 mL before bedtime. 420 mL 5 4 Active Aprepitant 40 MG Oral Capsule 1 capsule once daily on Day 2 and Day 3 of vomiting 10 Capsule 4 4 Active oxyCODONE-Acetamino phen 10-325 MG Oral Tablet (Percocet)Indicatio ns:Lumbar degenerative disc disease,Chronic pain syndrome Take 1 Tablet by mouth every 6 hours as needed for Pain, Moderate or Pain, Severe. 120 Tablet 0 4 Active Sucralfate 1 GM/10ML Oral Suspension (Carafate) Take 10 mL by mouth in the morning and 10 mL at noon and 10 mL in the evening and 10 mL before bedtime. 420 mL 5 3 10/30/19 24 Discontinu ed(End of Procedure) Aprepitant 40 MG Oral Capsule 1 capsule once daily on Day 2 and Day 3 of vomiting 10 Capsule 4 3 10/30/19 24 Discontinu ed(Refill) Pantoprazole Sodium 40 MG Oral Tablet Delayed Release (Protonix) 1 tablet daily at least 30 min prior to breakfast 90 Tablet 3 4 10/30/19 24 Discontinu ed(End of Procedure) Spikevax 50 MCG/0.5ML Intramuscular Suspension 0 3 10/30/19 24 Discontinu ed(End of Procedure) Promethegan 50 MG Rectal Suppository (Promethazine HCl) 1 supp Per Rectum Q6H,PRN:vomiting 12 Suppository 0 4 10/30/19 24 Discontinu ed(End of Procedure) oxyCODONE-Acetamino phen 10-325 MG Oral Tablet (Percocet)Indicatio ns:Lumbar degenerative disc disease,Chronic pain syndrome Take 1 Tablet by mouth every 6 hours as needed for Pain, Moderate or Pain, Severe. 120 Tablet 0 4 10/30/19 24 Discontinu ed(Refill) documented as of this encounter (statuses as of 11/05/2023) Active Problems Problem Noted Date Diagnosed Date [...] as of this encounter (statuses as of 11/05/2023) Resolved Problems Problem Noted Date Diagnosed Date [...] as of this encounter (statuses as of 11/05/2023) Immunizations Name Administration Dates Next Due COVID-19, MRNA-LNP, 23-24, P F, 30 MCG/0.3 mL, 12 YRS AND ABOVE, IM (PFIZER-Comirnaty) 06/15/2023 COVID-19, MRNA-LNP, 23-24, P F, 50 MCG/0.5 mL, 12 YRS AND ABOVE, IM (MODERNA-Spikevax) 07/24/2023 Covid-19, Mrna, Lnp-s, Pf, B ivalent, 50 Mcg, IM, 12 yrs and above (Moderna) 04/24/2022 Pneumococcal Conjugate Vacci ne, 20-valent ([id number]) 03/31/2023,07/04/2022 Seasonal Influenza, Quadriva lent Hd (Fluzone [...] Progress Notes * Eliza Mcfarland MD - 10/30/2023 6:06 PM EDT Images from the original note [...] presents for No chief complaint on file. Recheck of chronic pain secondary to DDD and bilateral knee oa Failed in spine and knees prior. Having more pain and swelling than usual. Denies any recent or newinjuries. Patient is using her typical pain medication, narcotic as well as additional acetaminophen. More depression than usual. Crying more frequently. Still grieving loss of parent. Patient has not done well with most SSRIs and SNRIs in the past. She denies any significant anxiety but has had someirritability which is not terribly unusual for her. Crying is not typical for patient. Physical Exam Physical Exam Vitals and nursing [...] normal. Behavior: Behavior normal. Assessment and Plan Post-traumatic osteoarthritis of both knees Reviewed x-ray from 2021, left osteoarthritis slightly worse than right. Patient has failed injections in the past. Recommend referral for discussion of total knee replacement. - ORTHOPAEDICS REFERRAL OP Dependence on nocturnal oxygen therapy Remains compliant. Cyclic vomiting syndrome Etiology of vomiting has been quite a mystery for some time. Initially thought to be the cannabis but patient is no longer using cannabis. She continues to have symptoms and struggle with what to eat. I think she would benefit from nutrition counseling. She also desires weight loss which I think isgoing to be quite difficult until her vomiting syndrome has been under better control. - GI NUTRITION REFERRAL OP Class 1 obesity due to excess calories with serious comorbidity and body mass index (BMI) of 30.0 to 30.9 in adult As above - GI NUTRITION REFERRAL OP Lumbar degenerative disc disease Reviewed PDMP, compliant with use. - oxyCODONE-Acetaminophen 10-325 MG Oral Tablet (Percocet); Take 1 Tablet by mouth every 6 hours asneeded for Pain, Moderate or Pain, Severe. Chronic pain syndrome - oxyCODONE-Acetaminophen 10-325 MG Oral Tablet (Percocet); Take 1 Tablet by mouth every 6 hours asneeded for Pain, Moderate or Pain, Severe. Depression Recommend trial of therapy with Trintellix. Treatment failure with Seroquel, all SSRIs and SNRIs. Wrap-Up Follow Up: Return in about 1 month (around 11/30/2023), or if symptoms worsen or fail to improve. Telemedicine: Patient location: HOME. I was in a hospital or clinic location. After connecting through [employer],patient was verified with two unique identifiers. Patient (or authorized legal member services representative) was then informed that this was [...] Info) Description 11/29/2023 10:00 AM EDT Imaging [facility] 2nd Floor Cardiology, [place] [facility] [place] [address] 05/07/2024 11:00 AM EDT Office Visit Nutrition & Weight Management, [facility] [address] [place] [address] Beverley Velasco PA-C [address] [place] [address] Scheduled Procedures Name Priority Associated Diagnoses Date/Ti me ESOPHAGOGASTRODUODENOSCOPY ( EGD), FLEXIBLE, TRANSORAL, DIAGNOSTIC Recall Shahid's esophagus with esophagitis ESOPHAGOGASTRODUODENOSCOPY ( EGD), FLEXIBLE, TRANSORAL, DIAGNOSTIC Epigastric pain Scheduled Referrals Name Type Priority Associated Diagnoses Orde r Schedule GI NUTRITION REFERRAL OP Referral Within 10 days (routine) Cyclic vomiting syndrome Class 1 obesity due to excess calories with serious comorbidity and body mass index (BMI) of 30.0 to 30.9 in adult Ordered: 10/30/2023 ORTHOPAEDICS REFERRAL OP Referral Within 10 days (routine) Post-traumatic osteoarthritis of both knees Ordered: 10/30/2023 Health Maintenance Due Date Last Done Comments DISCUSS TOBACCO CESSATION (REFER TO SMARTSET #4371) 1970 HIV Screening 1985 Albumin/Creatinine Ratio 01/29/1988 [...] as of this encounter Visit Diagnoses Diagnosis Post-traumatic osteoarthritis of both knees- Primary Secondary localized osteoarthrosis, lower leg 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 No Code Status History Code Status [...] Advance Directives occurred with: Patient Care Teams Slitter Helper Relationship Specialty Start Date End Date Eliza Mcfarland MD [address] [place] [address] PCP - General Family Medicine 12/09/21 documented as of this encounter
--- OUTSIDE RECORDS SUMMARY | 2024-03-27 15:55 | External Medical Summary | Summary of Care ---
Author Name Unknown Organization [facility] Address [address] [facility] [place] [address] Phone [phone] Care Team Providers Care Health Management Consultant Name Role Phone Eliza Mcfarland MD Primary [...] (Moderna) 04/24/2022 Pneumococcal Conjugate Vacci ne, 20-valent ([id number]) 03/31/2023,07/04/2022 Seasonal Influenza, Quadriva lent Hd (Fluzone [...] 11/21/2023 2:00 PM EDT Office Visit Orthopaedics [facility] [address] [place] [address] Miguel Pelayo PA-C [address] [place] [address] 11/29/2023 10:00 AM EDT Imaging [facility] 2nd Floor Cardiology, [place] [address] [place] [address] 12/06/2023 9:40 AM EDT Telemedicine Family [facility] [address] [place] [address] Eliza Mcfarland MD [address] [place] [address] 05/07/2024 11:00 AM EDT Office Visit Nutrition & Weight Management, [facility] [address] [place] [address] Beverley Velasco PA-C [address] [place] [address] Scheduled Procedures Name Priority Associated Diagnoses Date/Ti me ESOPHAGOGASTRODUODENOSCOPY ( EGD), FLEXIBLE, TRANSORAL, DIAGNOSTIC Recall Shahid's esophagus with esophagitis ESOPHAGOGASTRODUODENOSCOPY ( EGD), FLEXIBLE, TRANSORAL, DIAGNOSTIC Epigastric pain Health Maintenance Due Date Last Done Comments DISCUSS TOBACCO CESSATION (REFER TO SMARTSET #[id number]) 1970 HIV Screening 1985 Albumin/Creatinine Ratio 01/29/1988 [...] the patient have Health Care Power of Insole Cementer? No Code Status History Code Status Date [...] Advance Directives occurred with: Patient Care Teams Health Management Consultant Relationship Specialty Start Date End Date Eliza Mcfarland MD [address] [place] [address] PCP - General Family Medicine 12/09/21 documented as of this encounter
--- OUTSIDE RECORDS SUMMARY | 2024-03-27 15:55 | External Medical Summary | Summary of Care ---
Author Name Unknown Organization [facility] Address [address] [facility] [place] [address] Phone [phone] Care Team Providers Care Manager Global Name Role Phone Eliza Mcfarland MD Primary [...] (Moderna) 04/24/2022 Pneumococcal Conjugate Vacci ne, 20-valent ([id number]) 03/31/2023,07/04/2022 Seasonal Influenza, Quadriva lent Hd (Fluzone [...] 11/21/2023 2:00 PM EDT Office Visit Orthopaedics [facility] [address] [place] [address] Miguel Pelayo PA-C [address] [place] [address] 11/29/2023 10:00 AM EDT Imaging [facility] 2nd Floor Cardiology, [place] [address] [place] [address] 12/06/2023 9:40 AM EDT Telemedicine [facility] [address] [place] [address] Eliza Mcfarland MD [address] [place] [address] 05/07/2024 11:00 AM EDT Office Visit Nutrition & Weight Management, [facility] [address] [place] [address] Beverley Velasco PA-C [address] [place] [address] Scheduled Procedures Name Priority Associated Diagnoses Date/Ti me ESOPHAGOGASTRODUODENOSCOPY ( EGD), FLEXIBLE, TRANSORAL, DIAGNOSTIC Recall Shahid's esophagus with esophagitis ESOPHAGOGASTRODUODENOSCOPY ( EGD), FLEXIBLE, TRANSORAL, DIAGNOSTIC Epigastric pain Health Maintenance Due Date Last Done Comments DISCUSS TOBACCO CESSATION (REFER TO SMARTSET #9287) 1970 HIV Screening 1985 Albumin/Creatinine Ratio 01/29/1988 [...] the patient have Health Care Power of Web Ui Designer? No Code Status History Code Status Date [...] Directives occurred with: Patient Care Teams Manager Global Relationship Specialty Start Date End Date Eliza Mcfarland MD [address] [place] [address] PCP - General Family Medicine 12/09/21 documented as of this encounter
--- OUTSIDE RECORDS SUMMARY | 2024-03-27 15:55 | External Medical Summary | Summary of Care ---
Author Name Unknown Organization [facility] Address [address] [place] [address] Phone [phone] Care Team Providers Care Cue Selector Name Role Phone Eliza Mcfarland MD Primary Care Prov ider Reason for Referral * Evaluate & Treat - Unlimited Visits (Within 10 days (routine)) - Authorized Specialty Diagnoses / Procedures Referred By Contac t Referred To Contact Orthopaedic Surgery / Orthopedics Diagnoses Post-traumatic osteoarthritis of both knees Eliza Mcfarland MD [address] [place] [address] [address] Sahu, [address] [place] [address] Referral ID Status Reason Start Date Expiration Date Visits Requested Visits Authorized [id number] Authorized Specialty Services Required 10/30/2023 999 999 [...] 30.9 in adult Eliza Mcfarland MD [address] [place] [address] Referral ID Status Reason Start Date Expiration Date Visits Requested Visits Authorized [id number] Authorized Specialty Services Required 10/30/2023 999 999 Question Answer Referral Priority Within 10 days (routine) Where should this appointment be scheduled? [facility] For what condition is the patient being seen? Other Encounter Details Date Type Department Care Team (Late st Contact Info) Description 10/30/2023 6:20 PM EDT Telemedicine [facility], [address] [address] Eliza Mcfarland MD [address] [place] [address] Post-traumatic osteoarthritis of both knees*; Dependence on [...] as of this encounter (statuses as of 10/30/2023) Medications Medication Sig Dispensed Refills Start Date [...] as of this encounter (statuses as of 10/30/2023) Active Problems Problem Noted Date Diagnosed Date [...] as of this encounter (statuses as of 10/30/2023) Resolved Problems Problem Noted Date Diagnosed Date [...] as of this encounter (statuses as of 10/30/2023) Immunizations Name Administration Dates Next Due COVID-19, MRNA-LNP, 23-24, P F, 30 MCG/0.3 mL, 12 YRS AND ABOVE, IM (PFIZER-Comirnaty) 06/15/2023 COVID-19, MRNA-LNP, 23-24, P F, 50 MCG/0.5 mL, 12 YRS AND ABOVE, IM (MODERNA-Spikevax) 07/24/2023 Covid-19, Mrna, Lnp-s, Pf, B ivalent, 50 Mcg, IM, 12 yrs and above (Moderna) 04/24/2022 Pneumococcal Conjugate Vacci ne, 20-valent ([id number]) 03/31/2023,07/04/2022 Seasonal Influenza, Quadriva lent Hd (Fluzone [...] hospital or clinic location. After connecting through [employer],patient was verified with two unique identifiers. 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 No Code Status History Code Status [...] Advance Directives occurred with: Patient Care Teams Cue Selector Relationship Specialty Start Date End Date Eliza Mcfarland MD [address] [place] [address] PCP - General Family Medicine 12/09/21 documented as of this encounter
[2024-03-27] MEDS ORDERED: KETOROLAC TROMETHAMINE 15 MG/ML VIAL IV PRN (16:06)
[2024-03-27] MEDS ORDERED: LABETALOL HCL IV 5 MG/ML 20ML IV PRN (16:06)
[2024-03-27] MEDS: oxyCODONE/ACETAMINOPHEN 10-325 TAB PO PRN (16:19)
[2024-03-27] MEDS ORDERED: PROMETHAZINE 12.5 MG/50.5 ML BAG IV SCH (16:30)
[2024-03-27] MEDS: PROMETHAZINE 12.5 MG/50.5 ML BAG IV SCH ×2 (17:44→18:12)
[2024-03-27] MEDS: ALPRAZolam 0.5 MG TABLET PO PRN (18:10)
[2024-03-27] MEDS ORDERED: hydrALAZINE TAB 50 MG TAB PO SCH (21:00)
[2024-03-27] MEDS: PANTOprazole 40 MG in SYRINGE 0 ML IV SCH (21:34)
[2024-03-27] MEDS: hydrALAZINE TAB 50 MG TAB PO SCH (21:44)
[2024-03-27] MEDS: FAMOTIDINE 20 MG TAB PO SCH (21:45)
[2024-03-28 06:03] LABS: Hematocrit (blood only) 39.5 % (37.0-47.0); Hemoglobin 13.2 g/dl (12.0-16.0); Mean Corpuscular Hemoglobin 28.3 pg (25.0-34.0); Mean Corpuscular Hgb Conc 33.4 g/dL (32.0-36.0); Mean Corpuscular Volume 84.8 fL (80.0-100.0); Mean Platelet Volume 10.5 fL (9.4-12.4); Platelet Count 246 K/uL (130-400); RDW Coefficient of Variation 14.8 % (11.5-14.5); RDW Standard Deviation 45.5 fL (36.4-46.3); Red Blood Count 4.66 M/uL (4.20-5.40); White Blood Count 9.87 K/ul (4.8-10.8)
[2024-03-28 06:22] LABS: BUN Creatinine Ratio 10.3 (10-20); Calcium 8.6 mg/dl (8.6-10.3); Creatinine Clr Calc Pharmacy 68.4 ml/min; Est GFR (African American) 68.2 ml/min; Est GFR (Non-African American) 58.8 ml/min; Magnesium 1.7 mg/dl (1.7-2.4); Phosphorus 4.3 mg/dl (2.5-4.9); Potassium 3.3 mmol/L (3.5-5.1)
[2024-03-28 07:14] LABS: Estimated Average Glucose 128 mg/dl; Hemoglobin A1C 6.1 % (4.5-5.6)
[2024-03-28] MEDS: OLANZapine 5 MG TABLET PO SCH (08:03)
[2024-03-28] MEDS: lisinopril 40 MG TAB PO SCH (08:03)
[2024-03-28] MEDS: ENOXAPARIN INJ 40 MG/0.4 ML SYR SQ SCH (08:04)
[2024-03-28] MEDS: UMECLIDINIUM/VILANTEROL 62.5/25MCG 7 PUFFS/INHALER INH SCH (08:04)
[2024-03-28] MEDS: FLUTICASONE FUROATE 200MCG 14 PUFFS/INHALER INH SCH (08:04)
[2024-03-28] MEDS ORDERED: NON-FORMULARY MEDICATION (Fluticasone-Umeclidin-Vilanter [Trelegy Ellipta] 200-62.5-25 mcg INH SCH (09:00)
[2024-03-28] MEDS: POTASSIUM CHLORIDE PWD 20 MEQ PACK PO SCH (09:17)
--- NOTE | 2024-03-28 12:01 | Hospitalist Progress Note ---
Date of Service March 28, 2024 Assessment & Plan (1) Nausea & vomiting: (2) Abdominal pain: (3) Hypertensive urgency: Plan Ms. Mathis is a 54 year old female with h/o cyclical vomiting syndrome who presented to the ED with intractable N/V for 3 days along with abd pain. Also with hypertensive urgency requiring multiple doses of iv hydralazine in the ED. Intractable N/V with abd pain- ongoing for 3 days now. Took emend this morning- 1st dose as she had profuse vomiting. States unable to eat or drink for past 3 days but able to take her pills including this morning. Will start on iv phenergan q6hrs, clear liq diet- advance as tolerated, gentle fluids. If no improvement in N/V, consider GI evaluation tomorrow. Abd pain is likely MSK from intractable vomiting and is mildly tender diffusely- CT A/P pending. Hypertensive urgency/situational hypertension- likely from vomiting/anxiety/pain/inability to keep meds down. Resume meds Will discuss home meds with patient in am prior to dispo Hypercalcemia- likely from dehydration, resolved Marijuana use- eats gummies, last one 1 week ago "or so" Tobacco abuse- states smokes few cigarettes a day. Declines nicoderm patch. Recommended quitting Hyperglycemia- 6.1% JESSIE/depression- follows with psychiatry. On alprazolam tid. States she stopped taking remeron as it made her restless. Leucocytosis- likely reactive. No focal S/S of infection.resolved Dispo in am DVT ppx- sc lovenox Time spent- approx 75 mins Admission and Anticipated Discharge Date Admission Date: March 27, 2024 Subjective Notes symptom improvement Denies any further nausea and ready to advance diet Cannot dispo 2/2 transport issues today Physical Exam Constitutional: WD/WN, vitals as above Respiratory: normal respiratory effort, lungs clear to auscultation Cardiovascular: RRR, no murmur, no edema Gastrointestinal (Abdomen): normal bowel sounds, soft, nontender, no hepatosplenomegaly Results & Data Results & Data Vital Signs (Past 12 Hours) Vital Signs Temp Pulse Pulse Resp BP Pulse Ox O2 Del Method 03/28/24 11:27 36.8 C 64 18 103/68 94 Room Air 03/28/24 09:03 64 03/28/24 08:00 36.9 C 59 L 17 101/67 95 Room Air 03/28/24 03:10 36.8 C 80 18 102/57 L 95 Room Air Laboratory Results Short CBC 03/28/24 Range/Units 05:32 WBC 9.87 (4.8-10.8) K/ul Hgb 13.2 (12.0-16.0) g/dl Hct 39.5 (37.0-47.0) % Plt Count 246 (130-400) K/uL BMP 03/28/24 05:32 Sodium 134 L Potassium 3.3 L Chloride 104 Carbon Dioxide 23 BUN 11 Creatinine 1.07 Glucose 91 Calcium 8.6 D Medications Administered Home Medications Medication Instructions Recorded Confirmed Last Taken albuterol sulfate 90 mcg/actuation 2 puff inhalation QID PRN 05/20/21 03/27/24 Unknown aerosol inhaler Shortness Of Breath Or Wheezing or Cough #8.5 grams fluticasone fur. 200 mcg-umeclid 1 inh inhalation QAM 07/13/23 03/27/24 07/13/23 62.5 mcg-vilant 25 mcg inhalat.powder (Trelegy Ellipta) alprazolam 1 mg tablet 1 mg PO TID Anxiety 03/27/24 03/27/24 Unknown famotidine 20 mg tablet 20 mg PO BID 03/27/24 03/27/24 Unknown hydralazine 50 mg tablet 50 mg PO TID 03/27/24 03/27/24 Unknown olanzapine 5 mg tablet 5 mg PO DAILY 03/27/24 03/27/24 Unknown pantoprazole 40 mg tablet,delayed 40 mg PO DAILY 03/27/24 03/27/24 Unknown release Active Medications Generic Name Dose Route Start Last Admin Trade Name Freq PRN Reason Stop Dose Admin Alprazolam 1 mg 03/27/24 16:27 03/28/24 07:59 Alprazolam 0.5 Mg Tablet PO 04/26/24 16:26 1 mg TID PRN Administration Anxiety Enoxaparin Sodium 40 mg 03/28/24 09:00 03/28/24 08:04 Enoxaparin Inj 40 Mg/0.4 Ml Syr SQ 04/27/24 08:59 40 mg QAM TAM Administration Famotidine 20 mg 03/27/24 21:00 03/28/24 08:03 Famotidine 20 Mg Tab PO 04/26/24 20:59 20 mg BID TAM Administration Fluticasone Furoate 1 puffs 03/28/24 09:00 03/28/24 08:04 Fluticasone Furoate 200mcg 14 Puffs/Inhaler INH 04/27/24 08:59 1 puffs DAILY TAM Administration Pantoprazole Sodium 40 mg/ 10 mls @ 5 mls/min 03/27/24 21:00 03/28/24 08:02 Syringe IV 04/26/24 20:59 5 mls/min BID TAM Administration Promethazine HCl 12.5 mg in 50.5 mls @ 202 mls/hr 03/27/24 18:00 03/28/24 13:02 Phenergan IV 04/26/24 17:59 Not Given Q6H TAM Lisinopril 40 mg 03/28/24 09:00 03/28/24 08:03 Lisinopril 40 Mg Tab PO 04/27/24 08:59 40 mg QAM TAM Administration Olanzapine 5 mg 03/28/24 09:00 03/28/24 08:03 Olanzapine 5 Mg Tablet PO 04/27/24 08:59 5 mg DAILY TAM Administration Oxycodone/Acetaminophen 1 tab 03/27/24 16:06 03/28/24 13:01 Oxycodone/Acetaminophen 10-325 Tab PO 04/10/24 16:05 1 tab QID PRN Administration Chronic Back Pain Potassium Chloride 40 meq 03/28/24 09:00 03/28/24 09:17 Potassium Chloride Pwd 20 Meq Pack PO 03/28/24 21:01 40 meq BID TAM Administration Umeclidinium/Vilanterol 1 puffs 03/28/24 09:00 03/28/24 08:04 Umeclidinium/Vilanterol 62.5/25mcg 7 Puffs/Inhaler INH 04/27/24 08:59 1 puffs DAILY TAM Administration (1) Nausea & vomiting Vomiting type: unspecified Qualified Code(s): R11.2 - Nausea with vomiting, unspecified (2) Abdominal pain Abdominal location: unspecified location Qualified Code(s): R10.9 - Unspecified abdominal pain
--- NOTE | 2024-03-28 15:18 | Electrocardiogram Report ---
Test Reason : Blood Pressure : */* mmHG Vent. Rate : 51 BPM Atrial Rate : 51 BPM P-R Int : 120 ms QRS Dur : 100 ms QT Int : 474 ms P-R-T Axes : 37 10 15 degrees QTcB Int : 436 ms Sinus bradycardia Otherwise normal ECG When compared with ECG of 13-Jul-2023 21:31, Vent. rate has decreased by 33 bpm Confirmed by Jorge Kumar ([id number]) on 03/28/2024 3:18:09 PM Referred By: REFERRED SELF Confirmed By: Jorge Kumar
[2024-03-28] MEDS: POTASSIUM CHLORIDE CRTAB 20 MEQ TABCR PO STA (20:09)
[2024-03-29 07:26] LABS: Hematocrit (blood only) 40.7 % (37.0-47.0); Hemoglobin 13.2 g/dl (12.0-16.0); Mean Corpuscular Hemoglobin 28.1 pg (25.0-34.0); Mean Corpuscular Hgb Conc 32.4 g/dL (32.0-36.0); Mean Corpuscular Volume 86.8 fL (80.0-100.0); Mean Platelet Volume 11.1 fL (9.4-12.4); Platelet Count 207 K/uL (130-400); RDW Standard Deviation 47.8 fL (36.4-46.3); Red Blood Count 4.69 M/uL (4.20-5.40); White Blood Count 7.27 K/ul (4.8-10.8)
[2024-03-29 07:52] LABS: BUN Creatinine Ratio 21.1 (10-20); Calcium 8.7 mg/dl (8.6-10.3); Est GFR (African American) 78.7 ml/min; Est GFR (Non-African American) 67.9 ml/min; Magnesium 1.9 mg/dl (1.7-2.4); Phosphorus 3.3 mg/dl (2.5-4.9); Potassium 4.5 mmol/L (3.5-5.1)
[2024-03-29 08:55] VITALS: PULSE 57; RESP 16; TEMP 98.1; O2SAT 98
--- NOTE | 2024-03-29 09:36 | Discharge Summary ---
Discharge Summary Date of Service March 29, 2024 Principal Dx & Hospital Course #1 = Principal Diagnosis (1) Nausea & vomiting: (2) Abdominal pain: (3) Hypertensive urgency: Plan Ms. Mathis is a 54 year old female with h/o cyclical vomiting syndrome who presented to the ED with intractable N/V for 3 days along with abd pain. Also with hypertensive urgency requiring multiple doses of iv hydralazine in the ED. Intractable N/V with abd pain- ongoing for 3 days now. Took emend this morning- 1st dose as she had profuse vomiting. States unable to eat or drink for past 3 days but able to take her pills including this morning. Will start on iv phenergan q6hrs, clear liq diet- advance as tolerated, gentle fluids. If no improvement in N/V, consider GI evaluation tomorrow. Abd pain is likely MSK from intractable vomiting and is mildly tender diffusely- CT A/P pending. Hypertensive urgency/situational hypertension- likely from vomiting/anxiety/pain/inability to keep meds down. Patient reports only taking hydralazine BID resume and follow up with PCP Hypercalcemia- likely from dehydration, resolved Marijuana use- eats gummies, last one 1 week ago "or so" Tobacco abuse- states smokes few cigarettes a day. Declines nicoderm patch. Recommended quitting Hyperglycemia- 6.1% JESSIE/depression- follows with psychiatry. On alprazolam tid. States she stopped taking remeron as it made her restless. Leucocytosis- likely reactive. No focal S/S of infection.resolved Notes For Next Care Provider Medication Changes From Visit None Admission HPI Per Admitting Provider Charleen Mathis is a 54y/o F with PMHx significant for COPD, HTN, history of hypertensive urgency, history of acute hyponatremia, GERD w/out esophagitis, cyclic vomiting syndrome, recurrent generalized abdominal pain, history of hepatitis C, inflammatory liver disease, lumbar degenerative disc disease, chronic back pain, history of migraines, major depressive disorder, JESSIE, PTSD and tobacco use disorder who presented to the ED for evaluation of abdominal pain and nausea/vomiting. History obtained from patient and associated chart review. Patient reports ongoing abdominal pain with associated nausea and vomiting for the past 3 days. Mentions she has been throwing up multiple times a day. Have not been eating or drinking much of anything over the past 3 days. She mentions she did take her hydralazine this morning, but she stopped taking her lisinopril "months ago." She does not check her BP at home. No vomiting today, but still is feeling very nauseous. Denies any dysuria. Had a bowel movement this morning. She is a smoker. Usually smokes around 4-5 cigarettes/day. No alcohol use. Does use marijuana, but mentions she hasn't used marijuana in the past few months. She is endorsing a headache. Mentions this feels like a migraine - reports she hasn't taken any medications for this. Admission Exam Per Admitting Provider No exam documented Please refer to Dr. He's addendum for physical examination findings. Discharge Exam Constitutional WD/WN, vitals as above Respiratory normal respiratory effort, lungs clear to auscultation Cardiovascular RRR, no murmur, no edema Gastrointestinal (Abdomen) normal bowel sounds, soft, nontender, no hepatosplenomegaly Updated Medication List Medication Instructions Recorded Confirmed Type albuterol sulfate 90 mcg/actuation 2 puff inhalation QID PRN 05/20/21 03/27/24 Rx aerosol inhaler Shortness Of Breath Or Wheezing or Cough #8.5 grams fluticasone fur. 200 mcg-umeclid 1 inh inhalation QAM 07/13/23 03/27/24 History 62.5 mcg-vilant 25 mcg inhalat.powder (Trelegy Ellipta) alprazolam 1 mg tablet 1 mg PO TID Anxiety 03/27/24 03/27/24 History famotidine 20 mg tablet 20 mg PO BID 03/27/24 03/27/24 History hydralazine 50 mg tablet 50 mg PO BID 03/27/24 03/29/24 History olanzapine 5 mg tablet 5 mg PO DAILY 03/27/24 03/27/24 History pantoprazole 40 mg tablet,delayed 40 mg PO DAILY 03/27/24 03/27/24 History release Hospital Stay Data Consultations 03/27/24 12:53 ED Decision to Admit Stat Diagnostic Imagining Performed 03/27/24 13:27 CT Abd and Pelvis [CT abd pelvis wo con] Stat Pending Results Patient Have Any Pending Studies at Discharge: No Discharge Instructions Given to Patient (Per Discharging Provider) You were admitted for dehydration due to cyclic vomiting. You improved with IV fluids. Please follow up with your specialist to ensure your medications and other measures are appropriate to aid in resolution of symptoms. Please consider cannabis cessation for 6 months at least to ensure not a contributing factor. Total Time Total Time Spent Total Time Spent (In Minutes): 35
[2024-03-29 09:40] VITALS: BP 118/80
[2024-03-30 09:58] LABS: Marijuana Quant, GCMS Urine 63 ng/mL (<5)
== END 2024-03-29 10:15 | disposition home or self-care (01) | DRG 305 ==
LOC: ED 10:04 → SUATTDRO 13:43 → 4W 13:43 → 3N 03-28 19:21

== ENCOUNTER 2025-01-03 07:22 | Inpatient (IN) ==
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
[2025-01-03 08:42] LABS: Alanine Aminotransferase 29 U/L (7-52); Albumin Globulin Ratio 1.3 (0.9-2); Albumin Level 4.8 gm/dl (3.4-5.0); Alkaline Phosphatase 52 U/L (34-104); BUN Creatinine Ratio 25.9 (10-20); Bilirubin,Total 1.1 mg/dl (0.2-1.0); Blood Urea Nitrogen 57 mg/dl (6-23); Carbon Dioxide 22 mmol/L (21-32); Chloride 90 mmol/L (98-107); Creatinine Clr Calc Pharmacy 33.5 ml/min; Globulin 3.6 gm/dl (2.5-4.0); Glucose 168 mg/dl (70-99(Fasting)); Lipase 28 U/L (11-82); Total Protein 8.4 gm/dl (6.0-8.3)
[2025-01-03 08:49] LABS: Basophils # (auto) 0.07 K/uL (0.00-0.20); Basophils % (auto) 0.4 %; Eosinophils # (auto) 0.03 K/uL (0.00-0.50); Eosinophils % (auto) 0.2 %; Hematocrit (blood only) 52.1 % (37.0-47.0); Hemoglobin 18.4 g/dl (12.0-16.0); Immature Granulocytes % (auto) 0.6 %; Lymphocytes # (auto) 2.53 K/uL (1.20-3.40); Lymphocytes % (auto) 14.4 %; Mean Corpuscular Hemoglobin 28.4 pg (25.0-34.0); Mean Corpuscular Hgb Conc 35.3 g/dL (32.0-36.0); Mean Corpuscular Volume 80.5 fL (80.0-100.0); Mean Platelet Volume 11.1 fL (9.4-12.4); Monocytes # (auto) 1.25 K/uL (0.11-0.59); Monocytes % (auto) 7.1 %; Neutrophils # (auto) 13.57 K/uL (1.40-6.50); Neutrophils % (auto) 77.3 %; Platelet Count 351 K/uL (130-400); RDW Standard Deviation 43.2 fL (36.4-46.3); Red Blood Count 6.47 M/uL (4.20-5.40); White Blood Count 17.55 K/ul (4.8-10.8)
[2025-01-03 09:36] LABS: Potassium 3.7 mmol/L (3.5-5.1)
--- NOTE | 2025-01-03 10:14 | CT Scan Report ---
Clinical History: Abdominal pain Technique: Axial computed tomography images were obtained of the abdomen and pelvis without intravenous contrast. Comparison is made to the prior CT dated 03/27/2024 Findings: The liver is overall of normal size, attenuation, and contour with no sign of cirrhosis or significant fatty infiltration. No definite liver mass lesion is seen on this noncontrast study. The gallbladder appears unremarkable. No bile duct dilatation is noted. The spleen is of normal size. No focal splenic lesion is evident. The pancreas appears normal with no sign of acute or chronic pancreatitis and no mass lesion noted. The pancreatic duct is of normal caliber. The adrenal glands appear unremarkable. No renal or proximal ureteral calculi are seen. There is mild prominence of the left renal pelvis. There is no hydronephrosis or perinephric stranding. No definite renal mass lesion is identified. The aorta is of normal caliber. No abdominal adenopathy is seen. The stomach appears normal. There is no sign of small bowel obstruction. The colon appears unremarkable. The appendix appears normal also. No free intraperitoneal fluid or air is identified. No distal ureteral or bladder calculi are seen. No obvious bladder mass lesion is evident. The iliac arteries are of normal caliber. No pelvic adenopathy is noted. The lungs bases appear clear. Mild thoracolumbar degenerative disc disease is seen. No fracture is identified. No focal osseous lesion is seen Impression: Unremarkable noncontrast CT of the abdomen and pelvis Electronically signed by Alvino Morales 01-03-2025 10:14 AM
--- NOTE | 2025-01-03 12:02 | XRay Report ---
Clinical History: Vomiting Technique: PA and lateral views of the chest were obtained Comparison is made to the prior examination dated 03/27/2024 Findings: There are no confluent pulmonary infiltrates. The heart size is within normal limits. No pleural effusion or pneumothorax is seen. There is no definite pulmonary nodule. No fracture is noted. No foreign body is seen Impression: No active disease Electronically signed by Alvino Morales 01-03-2025 12:02 PM
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
[2025-01-03 12:28] LABS: Appearance Urine Clear (Clear); Bacteria Urine Automated None Seen (None Seen); Bilirubin Urine Negative (Negative); Blood Urine Negative (Negative); Cast Urine Automated >20 /lpf (0-2); Color Urine Yellow; Glucose Urine UA Negative (Negative); Ketones Urine 1+ (Negative); Leukocyte Esterase Urine Negative (Negative); Nitrite Urine Negative (Negative); Protein Urine 2+ (Negative); RBC Urine Automated 0-2 /hpf (0-2); Specific Gravity Urine 1.018 (1.000-1.030); Urobilinogen Urine Negative (Negative); WBC Urine Automated 0-5 /hpf (0-5)
[2025-01-03 13:23] LABS: BUN Creatinine Ratio 30.4 (10-20); Calcium 8.7 mg/dl (8.6-10.3); Creatinine Clr Calc Pharmacy 43.8 ml/min; Phosphorus 3.9 mg/dl (2.5-4.9); Potassium 3.6 mmol/L (3.5-5.1)
[2025-01-03 13:23] LABS: Estimated Average Glucose 128 mg/dl; Hemoglobin A1C 6.1 % (4.5-5.6)
[2025-01-03 13:23] LABS: Urine Chloride < 15 mmol/L; Urine Potassium 45.2 mmol/L; Urine Sodium 20 mmol/L
[2025-01-03 13:32] LABS: Amphetamines+Metham, Urine Neg (Neg); Barbiturates, Urine Neg (Neg); Benzodiazepine, Urine Pos (Neg); Cocaine, Urine Pos (Neg); Fentanyl, Urine Neg (Neg); MDMA (Ecstacy), Urine Neg (Neg); Marijuana, Urine Pos (Neg); Methadone, Urine Neg (Neg); Opiate, Urine Neg (Neg); Phencyclidine, Urine Neg (Neg)
[2025-01-04 07:53] LABS: Hematocrit (blood only) 44.2 % (37.0-47.0); Hemoglobin 14.8 g/dl (12.0-16.0); Mean Corpuscular Hemoglobin 28.6 pg (25.0-34.0); Mean Corpuscular Hgb Conc 33.5 g/dL (32.0-36.0); Mean Corpuscular Volume 85.3 fL (80.0-100.0); Mean Platelet Volume 10.9 fL (9.4-12.4); Platelet Count 240 K/uL (130-400); RDW Coefficient of Variation 15.3 % (11.5-14.5); RDW Standard Deviation 47.4 fL (36.4-46.3); Red Blood Count 5.18 M/uL (4.20-5.40); White Blood Count 10.07 K/ul (4.8-10.8)
[2025-01-04 08:06] LABS: Albumin Globulin Ratio 1.5 (0.9-2); Albumin Level 3.8 gm/dl (3.4-5.0); BUN Creatinine Ratio 29.1 (10-20); Bilirubin,Total 0.8 mg/dl (0.2-1.0); Calcium 8.5 mg/dl (8.6-10.3); Creatinine Clr Calc Pharmacy 73.3 ml/min; Globulin 2.5 gm/dl (2.5-4.0); Magnesium 2.1 mg/dl (1.7-2.4); Phosphorus 2.9 mg/dl (2.5-4.9); Potassium 3.8 mmol/L (3.5-5.1); Total Protein 6.3 gm/dl (6.0-8.3)
[2025-01-04 08:11] VITALS: O2SAT 97
--- NOTE | 2025-01-04 09:35 | Electrocardiogram Report ---
Test Reason : Blood Pressure : */* mmHG Vent. Rate : 108 BPM Atrial Rate : 108 BPM P-R Int : 138 ms QRS Dur : 96 ms QT Int : 352 ms P-R-T Axes : 46 -22 82 degrees QTcB Int : 471 ms Sinus tachycardia with occasional Premature ventricular complexes Moderate voltage criteria for LVH, may be normal variant ( R in aVL , Alberto product ) Borderline ECG When compared with ECG of 27-Mar-2024 10:40, Premature ventricular complexes are now Present Vent. rate has increased by 57 bpm Confirmed by Theresa Borden (Alexandra) on 01/04/2025 9:35:27 AM Referred By: REFERRED SELF Confirmed By: Theresa Borden
[2025-01-04 11:17] VITALS: PULSE 76
[2025-01-04 11:43] VITALS: BP 139/85
--- NOTE | 2025-01-04 11:56 | Discharge Summary ---
Discharge Summary Date of Service January 04, 2025 Principal Dx & Hospital Course #1 = Principal Diagnosis (1) Nausea & vomiting: (2) Cyclic vomiting syndrome: (3) Severe dehydration: Plan Ms. Charleen Mathis is a 54y/o woman with PMHx significant for COPD, HTN, history of GERD, cyclic vomiting syndrome, COPD, HTN prior hepatitis C, chronic back pain,migraines, major depressive disorder admitted for severe dehydration iso like flare of cyclic vomiting syndrome. Intractable Nausea & Vomiting Cyclic vomiting syndrome Multiple trips to ED with similar constellation of symptoms - suspect cyclic vomiting syndrome in setting of marijuana CT reviewed, no clear anatomical cause, lipase 28, mild elevation in t bili likely 2/2 dehydration Recieved zofran, compazine, reglan initially as well as trial of Benadryl and Emend for CVS Clinically improved today and tolerating regular diet, oral fluids Electrolytes all within range and Creatinine back to baseline Long discussion on strict cessation of recreational drugs - UDS + for benzodiazepines, marijuana and cocaine - as likely causing N/V symptoms Also addressed risk of Xanax prescribed by psychiatrist interacting with recreational drugs. Recommend tapering Xanax as able Sinus tachycardia -> resolved ISO acute dehydration Received IV fluids overnight and now tolerating PO intake Sepsis criteria with leukocytosis and tachycardia, low suspicion Elevated Hgb WBC Suspect 2/2 severe dehydration, baseline seems to be hgb 13-14 Labwork has all normalized with hydration, including WBC count. No evidence of infection or indication for antibiotics GEORGINA -> resolved Pre-renal etiology in setting of dehydration, N/V BUN 57, Cr up to 2.20, baseline 0.8-1.0 Aggressive fluid resuscitation overnight and Cr returned to baseline 1.03 this AM Hyponatremia -> resolved Initial Na of 131, suspect secondary to dehydration, however on meds that could contribute to SIADH Na normalized to 137 after aggressive fluids Hyperglycemia Prediabetes 03/2024 6.1% Update A1c iso hyperglycemia despite reportedly fairly poor po intake HTN hydralazine BID Tobacco use Last 4 days ago, intermittent Nicotine patch ordered COPD Resume home inhalers MDD JESSIE PTSD On Xanax TID at this time - given risk of interaction with recreational drugs like cocaine (+ on UDS), recommend Xanax is tapered Hx of HCV prior treatment w Interferon at [facility] normal lfts Care coordinated with Dr. Martinez. Notes For Next Care Provider CVS in setting of marijuana (UDS also positive for benzodiazepines and cocaine) - counseled on strict drug cessation! Tolerating normal diet at time of discharge home. Medication Changes From Visit Lorri PRN Admission HPI Per Admitting Provider Ms. Charleen Mathis is a 54y/o woman with PMHx significant for COPD, HTN, history of GERD, cyclic vomiting syndrome, COPD, HTN prior hepatitis C, chronic back pain,migraines, major depressive disorder who presented to [facility] ED due to persistent nausea and vomiting. She states she has been in her usual state of health. She denies any trigger, psychosocial stressor, or other acute concerns. She states she woke up with abdominal pain and nausea about two days ago. Since then has not been able to keep anything down--she notes that it is a severe burning pain in her abdomen with the nausea. She denies diarrhea or changes to bowel habits, blood in bowel or emesis, fevers, chills, night sweats. She denies any urinary concerns. She has not been able to keep her medications down. She states she does not use marijuana, she smokes tobacco intermittently (cigarettes), denies etoh use or other illicits. She lives with her children. She ambulates with a walker In the ED, vitals were notable for BP of 140-230s HR of 90-100s and O2 sat of mid 90s on room air abs with leukocytosis 17.55, hgb 18.4 (baseline 13-14), georgina to 2.0 (baseline 0.8-1.0), mild elevation in t bili 1.1 otherwise normal lfts and lipase Imaging noncontributory EKG sinus tachy with PVCs ED interventions: antiemetics, IVF Patient to be admitted to [facility] for further evaluation and management of severe dehydration iso intractable nausea and vomiting Admission Exam Per Admitting Provider GENERAL APPEARANCE: AxOx4, sleeping on side, awakens easily but appears uncomfortable HEENT: NC, AT. MMM. EOMI, clear conjunctiva, oropharynx clear. NECK: Supple without lymphadenopathy. No stiffness or restricted ROM. HEART: tachycardic LUNGS: CTAB, moving air well. No crackles or wheezes are heard. ABDOMEN: tenderness not exacerbated by palpation BACK: No CVAT, no obvious deformity. EXTREMITIES: Without cyanosis, clubbing or edema. NEUROLOGICAL: Grossly nonfocal. Alert and oriented though uncomfortable, moving all 4 extremities. CN not formally tested but appear grossly intact. Skin: Warm and dry without any rash. Discharge Exam Gen: WD/WN, NAD, sitting upright in bed eating breakfast, A&Ox3 HEENT: Normocephalic, atraumatic, conjunctivae moist, sclerae anicteric, mucous membranes moist Lung: Clear to Auscultation bilaterally Heart: Regular rate, regular rhythm Abdomen: Soft, NT, ND +BS x 4 Extremities: no edema Skin: Warm, no rash Updated Medication List Medication Instructions Recorded Confirmed Type albuterol sulfate 90 mcg/actuation 2 puff inhalation QID PRN 05/20/21 01/03/25 Rx aerosol inhaler Shortness Of Breath Or Wheezing or Cough #8.5 grams fluticasone fur. 200 mcg-umeclid 1 inh inhalation QAM 07/13/23 01/03/25 History 62.5 mcg-vilant 25 mcg inhalat.powder (Trelegy Ellipta) alprazolam 1 mg tablet 1 mg PO TID Anxiety 03/27/24 01/03/25 History famotidine 20 mg tablet 20 mg PO BID 03/27/24 01/03/25 History hydralazine 50 mg tablet 50 mg PO BID 03/27/24 01/03/25 History pantoprazole 40 mg tablet,delayed 40 mg PO DAILY 03/27/24 01/03/25 History release ondansetron HCl 4 mg tablet 4 mg PO Q8H PRN nausea and 01/04/25 Rx vomiting #12 tabs Hospital Stay Data Consultations 01/03/25 12:01 ED Decision to Admit Stat Diagnostic Imagining Performed 01/03/25 09:13 CT abd pelvis wo con Stat Pending Results Patient Have Any Pending Studies at Discharge: No Discharge Instructions Given to Patient (Per Discharging Provider) You were admitted for dehydration in the setting of nausea and vomiting. Suspect cyclical vomiting syndrome in setting of drug use - recommended to stop use ! Also discussed the risk of home Xanax prescribed by psychiatrist interacting with recreational drugs. You are now tolerating normal foods - recommendation for small meals with bland foods and continued water intake to stay hydrated. MEDICATION CHANGES: Zofran up to 3x/day as needed for nausea. RECOMMENDATIONS FOR FOLLOW-UP: Follow up with PCP as scheduled. Continue medication regimen as scheduled aside from changes noted above. OTHER INSTRUCTIONS: Seek medical attention if you have: * temperature above 101 * chest pain or trouble breathing * abdominal pain, nausea, vomiting * diarrhea, dark stools or bloody stools * any unanswered questions or concerns Call 911 if symptoms are severe. Please take good care of yourself. Call if you have any questions or problems. You can reach a [facility] [address] hospitalist on duty at [facility] 24 hours a day by calling [phone]. Total Time Total Time Spent Total Time Spent (In Minutes): 45 Supervising Physician Co-Signing Physician Notes Patient seen and examined at bedside. Patient states she hangs out with people who do cocaine, but states "i do not know how this happened". Ate full meal this morning without vomiting but "feels nauseous". On exam, patient completely nontoxic, sitting comfortably on side of bed with food at bedside. Creatinine improved with fluids, otherwise unremarkable labs or hemodynamics. Patient likely had drug induced nausea/vomiting, on chronic benzodiazepine therapy, in setting of concurrent THC and cocaine use. Also has significant psychiatric conditions. Patient needs weaned off of benzodiazepines in setting of drug use, will message outpatient provider. Patient is tolerating whole meals well, hemodynamically and lab stable, medical ly stable for discharge home, needs to follow up with PCP, and given counseling in regards to stop drug use as it is causing patients long history of cyclic vomiting syndrome. I have seen and discussed the case with the collaborating advanced practitioner. I agree with the above H&P. I have reviewed and confirmed the patients medical history, the findings on physical examination, and the patients diagnosis and treatment plan with Dannielle Medina PA-C and agree with the information documented. I spent a total of 30 minutes coordinating, documenting, and providing care for this patient excluding time spent in the performance of separately billed services. All of the aforementioned completed outside of collaborating with the assigned advanced practitioner for a full treatment plan. I have reviewed the advanced practitioner's documentation, and I agree with, and take responsibility for the plan of care
[2025-01-04 12:28] VITALS: RESP 19; TEMP 97.7
[2025-01-10 09:07] LABS: 7-Aminoclonaz, Confirm 228 ng/mL (<25); Cocaine, Urine 168 ng/mL (<100); Hydro-Alp Ur, GC/MS 384 ng/mL (<25); Hydroxyethylflurazepam, Conf NEGATIVE ng/mL (<50); Hydroxymidazolam Ur, GC/MS NEGATIVE ng/mL (<50); Hydroxytriazolam NEGATIVE ng/mL (<50); Lorazepam, Ur GC/MS NEGATIVE ng/mL (<50); Marijuana Quant, GCMS Urine 107 ng/mL (<5); Nordiazepam, Confirm NEGATIVE ng/mL (<50); Oxazepam Ur, GC/MS NEGATIVE ng/mL (<50); Temazepam, Confirm NEGATIVE ng/mL (<50)
== END 2025-01-04 15:49 | disposition home or self-care (01) ==
LOC: ED 07:22 → SUATTDRO 12:14 → 2W 12:14